=== PATIENT | male | born 1935 | race Caucasian/White ===

== ENCOUNTER 2023-04-06 05:47 | Inpatient (IN) | payer MEDICARE, OTHER, SELFPAY ==
[2023-04-06] VITALS (15 sets, daily range): BP systolic 112–140; BP diastolic 45–81; PULSE 64–77; RESP 16–23; TEMP 35.8–36.9; O2SAT 89–99; BMI 35.2
[2023-04-06 06:17] LABS: Absolute Lymphocyte Count 0.97 X10^3/uL (0.83-4.51); Absolute Neutrophil Count 1.4 X10^3/uL (2.0-7.7); Basophil# 0.01 X10^3/uL; Basophil% 0.4 % (0-1); Eosinophil# 0.06 X10^3/uL; Eosinophils% 2.3 % (0-5); Hematocrit 23.5 % (40-54); Hemoglobin 7.3 g/dL (13.0-16.5); Lymphocyte # 0.97 X10^3/ul (0.83-4.51); Lymphocyte % 36.9 % (19-41); Mean Corp Hgb Conc 31.1 g/dL (32-36); Mean Corpuscular Hgb 35.4 pg (27.0-32.0); Mean Corpuscular Volume 114.1 fL (80-94); Mean Platelet Vol. 11.5 fl (6.2-12.0); Monocyte# 0.15 X10^3/uL; Monocyte% 5.7 % (0-10); NRBC Flagged by Analyzer 0 % (0-5); Neutrophil # 1.41 X10^3/uL (2.7-7.7); Neutrophil % 53.6 % (47-70); POSITIVE MORPHOLOGY YES; Platelet Count 102 K/mm3 (150-450); RBC Distribution Width CV 21.4 % (11.6-14.6); RBC Distribution Width SD 87.9 fl (35.1-43.9); Red Blood Count 2.06 M/mm3 (4.6-6.2); White Blood Count 2.6 K/mm3 (4.4-11.0)
--- NOTE | 2023-04-06 06:18 | EDS_ITS ---
HPI HPI - GI History of Present Illness Chief Complaint: GI Bleed Detail of Chief Complaint: Black stool Informant: patient and spouse/S.O. Abdominal Pain/Flank Pain Onset: Today and Yesterday Context: Sudden Onset Timing: Intermittent Quality: Aching Location: Epigastric Current Severity: Gone Maximum Severity: Mild Worsened by: Nothing Relieved by: Nothing Nausea/Vomiting/Emesis GI Symptom: Positive for Nausea; Negative for Vomiting Diarrhea/Melena/Hematochezia GI Symptom: Positive for Melena; Negative for Diarrhea or Hematochezia Onset: Today and Yesterday Stool Quality: Positive for Loose and Black; Negative for Maroon or BRB per rectum Associated Symptoms Associated Symptoms: Negative for Dysuria, Frequency, Hematuria or Urgency LMP: Not applicable Narrative Narrative: Patient is an 80 old male on Dariana went for coronary disease. He had several stents placed 12 years ago. He also has history of gout, hypertension, peptic ulcer disease. He is on Pepcid. He had an EGD performed by GI specialist at [facility] proximal weeks ago and was told he has lesions. He is also on sucralfate. He presents because of black stool. He denies orthostatic symptoms today. He was lightheaded when he did his bowel prep. He denies chest pain, dyspnea, dyspnea on exertion. He denies orthopnea. He denies intolerance to food. He denies bruising easily. Recently he was told to decrease his Eliquis dose. He has not noted blood in his urine. He does not bruise easily. He denies bleeding from his gums. Prior similar symptoms: No Recent Illness/Hospitalization: Yes [facility] Medical History Diabetes Hypertension Home Medications allopurinol 100 mg tablet 100 mg PO DAILY 04/06/23 [History Last Taken Unknown] amlodipine 10 mg tablet 10 mg PO DAILY 04/06/23 [History Last Taken Unknown] apixaban 2.5 mg tablet (Eliquis) 2.5 mg PO BID 04/06/23 [History Last Taken Unknown] aspirin 81 mg tablet 81 mg PO DAILY 04/06/23 [History Last Taken Unknown] atorvastatin 20 mg tablet 20 mg PO DAILY 04/06/23 [History Last Taken Unknown] famotidine 20 mg tablet 20 mg PO BID 04/06/23 [History Last Taken Unknown] ferrous sulfate 325 mg (65 mg iron) tablet 325 mg PO DAILY 04/06/23 [History Last Taken Unknown] furosemide 20 mg tablet 20 mg PO BID 04/06/23 [History Last Taken Unknown] gabapentin 300 mg capsule 300 mg PO BID 04/06/23 [History Last Taken Unknown] glimepiride 2 mg tablet 2 mg PO DAILY 04/06/23 [History Last Taken Unknown] metoprolol succinate 100 mg tablet,extended release 24 hr 100 mg PO DAILY 04/06/23 [History Last Taken Unknown] multivitamin 1 tab PO DAILY 04/06/23 [History Last Taken Unknown] sucralfate 1 gram tablet (Carafate) 1 g PO BID 04/06/23 [History Last Taken Unknown] Allergy/AdvReac Type Severity Reaction Status Date / Time metformin AdvReac Diarrhea Verified 04/06/23 05:49 Surgical History History of cholecystectomy History of hernia surgery Social History (Updated 04/06/23 @ 06:[address] Wilfrido Rodriguez MD) household members: spouse Smoking Status: Never smoker substance use type: does not use ROS ROS ED Constitutional Constitutional ED: Denies chills, fever(s), subjective or sweats ENT ENT ED: Denies ear pain, rhinorrhea or sore throat Cardiovascular Cardiovascular: Denies chest pain, orthopnea, palpitations or paroxysmal nocturnal dyspnea Respiratory/Chest Respiratory/Chest: Denies cough, dyspnea, dyspnea on exertion, orthopnea or paroxysmal nocturnal dyspnea Gastrointestinal Gastrointestinal: Reports abdominal pain and melena; Denies constipation, diarrhea, nausea or vomiting Genitourinary Genitourinary ED: Denies dysuria, hematuria or urinary frequency Musculoskeletal Musculoskeletal: Denies arthralgias, back pain or myalgias Integumentary Denies rash Neurologic Neurologic: Denies paresthesias or weakness Endocrine Endocrinology: Denies polydipsia or polyuria Hematologic/Lymphatic Hematologic/Lymphatic: Denies easy bleeding or easy bruising EXAM Physical Exam Const Vital Signs: 04/06/23 05:49 04/06/23 06:42 Temperature 96.4 F L Temperature Source Temporal Pulse Rate 73 Pulse Rate [Lying] 74 Pulse Rate [Sitting (for 1 minute prior to obtaining)] 75 Pulse Rate [Standing (for 1 minute prior to obtaining)] 74 Respiratory Rate 20 H Blood Pressure 132/57 H Blood Pressure [Lying] 134/59 H Blood Pressure [Sitting (for 1 minute prior to obtaining)] 130/56 H Blood Pressure [Standing (for 1 minute prior to obtaining)] 131/81 H Blood Pressure Mean 82 Blood Pressure Mean [Lying] 84 Blood Pressure Mean [Sitting (for 1 minute prior to obtaining)] 80 Blood Pressure Mean [Standing (for 1 minute prior to obtaining)] 97 Pulse Ox 98 Oxygen Delivery Method Room Air Positive well nourished, well developed and obese General Appearance ED: well developed, NAD and pallor Nutritional Appearance: obese HEENT Reports TM's clear and moist mucous membranes normocephalic and atraumatic Tympanic Membrane ED: Yes TM's clear Eyes PERRL and EOMs intact bilaterally General Eye ED: Yes pale conjunctiva; Negative for scleral icterus Neck no lymphadenopathy, supple and no JVD Resp normal respiratory effort Effort and Inspection: respiratory distress Cardio regular rate, regular rhythm, S1 normal heart sound, S2 normal heart sound and no murmurs GI non-tender and no masses; Negative for non-distended GI Narrative: There is no fissures, fistulas hemorrhoid noted on rectal exam. Stool is blackish green and does have an odor to it. Inspection: abdominal distention Auscultation: hypoactive bowel sounds Palpation: soft; Negative for tender, guarding, rigid, hepatomegaly or splenomegaly Back/Spine no CVA tenderness Extremity full ROM General Extremety ED: Yes edema; Negative for tenderness General Extremity: edema Neuro CN's II-XII intact bilaterally and moves all extremities Sensorium / Orientation: alert Psych mental status grossly normal Skin no wounds General Skin Exam: pallor; Negative for jaundice Lesions: no lesions Rashes: no rashes MDM MDM MDM Narrative Medical decision making narrative: With history of recent EGD with lesions blackish green stool this may represent GI bleed. The black his grandson may have been due to the fact that he is on iron. Will obtain CBC to assess H&H compared to prior. BMP to assess BUN to creatinine ratio which would be elevated, greater than 20-1 if due to GI bleed or dehydration. Since he is on Eliquis coags were not obtained. Stool was sent for occult blood. She was recently admitted to [facility] for acute on chronic anemia. There was concern this was due to GI bleed. Upper endoscopy revealed several punctate ulcers throughout the antrum. H. pylori biopsies were negative. 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 His most recent hemoglobin was 7.7. He denied at the time of this author report black stool or blood in his stool. He has multiple other medical problems which she did not list initially either. Patient did require transfusion of 2 units of blood. Since his hemoglobin is low for than his hemoglobin prior to transfusion Dr. Kirby was made aware of the patient. He will need hospitalization. Suspect observation status with serial H&H to determine if he is blood count is falling. He is presently coagulant. This may need to be discontinued temporarily. History & Record Review Additional record(s) reviewed:: Prior inpatient record and Prior outpatient record Lab Data Attestation: I reviewed the patient's lab results. 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 Hemoglobin today is 7.3 with Alaniz crit of 23.5. MCV is 110. White count is 2.6 thousand with a frontal. BUN and anion elevated for 3 and 2.25 with a BUN to creatinine ratio of 19:1. Coags were not obtained since he is on Eliquis and results are meaningless. Based on records from outside facility patient does have stage III chronic kidney disease. Will type and screen patient at this point. Labs: Laboratory Results - last 24 hr 04/06/23 04/06/23 05:53 05:53 WBC 2.6 L RBC 2.06 L Hgb 7.3 L Hct 23.5 L MCV 114.1 H MCH 35.4 H MCHC 31.1 L RDW Std Deviation 87.9 H RDW Coeff of Beto 21.4 H Plt Count 102 L MPV 11.5 Immature Gran % (Auto) 1.100 H Neut % (Auto) 53.6 Lymph % (Auto) 36.9 [place] % (Auto) 5.7 Eos % (Auto) 2.3 Baso % (Auto) 0.4 Absolute Neuts (auto) 1.4 L Absolute Lymphs (auto) 0.97 Nucleated RBC % 0 Anisocytosis 2+ Sodium 143 Potassium 4.2 Chloride 112 H Carbon Dioxide 25.0 Anion Gap 6 BUN 43 H Creatinine 2.25 H Estim Creat Clear Calc 22.38 Est GFR (MDRD) Af Amer 36 L Est GFR (MDRD) Non-Af 29 L BUN/Creatinine Ratio 19.1 Glucose 163 H Calcium 8.9 Management Discussion w/another healthcare provider: Hospitalist and Addictions Therapist (Dr. Kirby requested Protonix IV push, drip and octreotide drip. Patient be admitted to the hospitalist service with consult to him.) Discharge Plan Dx/Rx/DC Orders Clinical Impression: Acute GI bleeding, Hypercholesterolemia, Presence of stent in coronary artery in patient with coronary artery disease, Anemia due to acute blood loss, Chronic lymphocytic leukemia of B-cell type, Stage 3 chronic kidney disease, Anticoagulant long-term use Disposition Disposition: Acute Care [facility]
[2023-04-06 06:31] LABS: Anion Gap 6 (5-15); BUN 43 mg/dL (7-18); BUN/Creat Ratio 19.1 RATIO (10-20); Calcium,Total 8.9 mg/dL (8.5-10.1); Chloride 112 mmol/L (98-107); Creatinine, Serum 2.25 mg/dL (0.70-1.30); EST Glomerular Filtration Rate 29 mL/min (>60); Est Glom Filt Rate - Afr Amer 36 mL/min (>60); Estimated Creatinine Clearance 22.38 ml/min; Glucose 163 mg/dL (74-106); Potassium 4.2 mmol/L (3.5-5.1); Sodium Level 143 mmol/L (136-145)
[2023-04-06 06:41] LABS: Differential Indicated SCAN CRITERIA MET
[2023-04-06 06:54] LABS: Anisocytosis 2+
--- NOTE | 2023-04-06 07:30 | EKG12_ITS ---
Test Reason : GI BLEED Blood Pressure : / mmHG Vent. Rate : 071 BPM Atrial Rate : 071 BPM P-R Int : 164 ms QRS Dur : 090 ms QT Int : 414 ms P-R-T Axes : 040 -30 -13 degrees QTc Int : 449 ms Sinus rhythm with occasional Premature ventricular complexes Left axis deviation Cannot rule out Anterior infarct , age undetermined Abnormal ECG No previous ECGs available Confirmed by ELISABETH RUANO, ISSA ([id number]), international editorial producer URI PAGAN ([id number]) on 04/07/2023 8:58:25 AM Referred By: Confirmed By:ISSA BARBER MD
--- NOTE | 2023-04-06 07:32 | NURSING ---
NO OLD EKGS
--- NOTE | 2023-04-06 07:40 | NURSING ---
PCU CARPENTER GI BLEED, ANEMIA DUE TO GI BLEED
--- NOTE | 2023-04-06 08:01 | PCM.HP.STD ---
HPI - General General Date of Admission: 04/06/23 Date of Service: 04/06/23 Chief Complaint: Black stools, dizzy HPI Narrative Jason Chaves 87-year-old male history of coronary artery disease with stent placement 12 years ago, chronic bcell CLL, DMII, gout, hypertension, peptic ulcer disease on Pepcid and sucralfate. Had EGD performed several weeks ago and was told he had lesions and presented to [facility] 04/06/2023 with black tarry stools. Is on Eliquis and was recently told to decrease his Eliquis dose. About a week and a half ago he was admitted to affiliated institution and had upper endoscopy which demonstrated several punctate ulcers in the antrum. He was discharged home and appears he is taking sucralfate twice daily and famotidine twice daily. He says since that time he has had black stools though was on iron supplementation however 2 days ago he had 4 black bowel movements in a row and had 1 last night and has been intermittently dizzy when standing. Does have little bit of left lower abdominal discomfort that he reports is intermittent and present over the past month. Also has been sneezing but denies any other complaints. [facility] Medical History (Updated 04/06/23 @ 08:[address] Mary Ellen Velez MD) Diabetes Hypertension Home Medications allopurinol 100 mg tablet 100 mg PO DAILY 04/06/23 [History Last Taken Unknown] amlodipine 10 mg tablet 10 mg PO DAILY 04/06/23 [History Last Taken Unknown] apixaban 2.5 mg tablet (Eliquis) 2.5 mg PO BID 04/06/23 [History Last Taken Unknown] aspirin 81 mg tablet 81 mg PO DAILY 04/06/23 [History Last Taken Unknown] atorvastatin 20 mg tablet 20 mg PO DAILY 04/06/23 [History Last Taken Unknown] famotidine 20 mg tablet 20 mg PO BID 04/06/23 [History Last Taken Unknown] ferrous sulfate 325 mg (65 mg iron) tablet 325 mg PO DAILY 04/06/23 [History Last Taken Unknown] furosemide 20 mg tablet 20 mg PO BID 04/06/23 [History Last Taken Unknown] gabapentin 300 mg capsule 300 mg PO BID 04/06/23 [History Last Taken Unknown] glimepiride 2 mg tablet 2 mg PO DAILY 04/06/23 [History Last Taken Unknown] metoprolol succinate 100 mg tablet,extended release 24 hr 100 mg PO DAILY 04/06/23 [History Last Taken Unknown] multivitamin 1 tab PO DAILY 04/06/23 [History Last Taken Unknown] sucralfate 1 gram tablet (Carafate) 1 g PO BID 04/06/23 [History Last Taken Unknown] Allergy/AdvReac Type Severity Reaction Status Date / Time metformin AdvReac Diarrhea Verified 04/06/23 05:49 Surgical History History of cholecystectomy History of hernia surgery Social History (Updated 04/06/23 @ 06:[address] Wilfrido Rodriguez MD) household members: spouse Smoking Status: Never smoker substance use type: does not use ROS ROS Narrative General: Denies fever/chills HENT: Denies headache, denies stuffy nose, denies sore throat, has been sneezing EYES: Denies changes in vision Resp: Denies cough, denies shortness of breath Cardiac: Denies chest pain GI: Some intermittent left lower quadrant discomfort, denies changes in bowel, denies nausea/vomiting : Denies changes in urination Extremity: Denies swelling MSK: Has some mild swelling bilateral lower extremities left greater than right which is chronic Neuro: Denies any numbness/tingling Heme: Denies any bleeding or bruising Skin: Denies rashes Psychiatric: No complaints voiced Vital Signs Vital Signs Vital Signs: 04/06/23 05:49 04/06/23 06:42 04/06/23 07:40 Temperature 96.4 F L 98 F Temperature Source Temporal Temporal Pulse Rate 73 70 Pulse Rate [Lying] 74 Pulse Rate [Sitting (for 1 minute prior to obtaining)] 75 Pulse Rate [Standing (for 1 minute prior to obtaining)] 74 Respiratory Rate 20 H 23 H Blood Pressure 132/57 H 122/61 H Blood Pressure [Lying] 134/59 H Blood Pressure [Sitting (for 1 minute prior to obtaining)] 130/56 H Blood Pressure [Standing (for 1 minute prior to obtaining)] 131/81 H Blood Pressure Mean 82 81 Blood Pressure Mean [Lying] 84 Blood Pressure Mean [Sitting (for 1 minute prior to obtaining)] 80 Blood Pressure Mean [Standing (for 1 minute prior to obtaining)] 97 Pulse Ox 98 94 Oxygen Delivery Method Room Air 04/06/23 07:59 Temperature Temperature Source Pulse Rate 71 Pulse Rate [Lying] Pulse Rate [Sitting (for 1 minute prior to obtaining)] Pulse Rate [Standing (for 1 minute prior to obtaining)] Respiratory Rate 22 H Blood Pressure 131/56 H Blood Pressure [Lying] Blood Pressure [Sitting (for 1 minute prior to obtaining)] Blood Pressure [Standing (for 1 minute prior to obtaining)] Blood Pressure Mean 81 Blood Pressure Mean [Lying] Blood Pressure Mean [Sitting (for 1 minute prior to obtaining)] Blood Pressure Mean [Standing (for 1 minute prior to obtaining)] Pulse Ox 96 Oxygen Delivery Method Room Air Weight Weight: 105 kg Body Mass Index (BMI) 35.2 Physical Exam Narrative General: Alert, oriented, no apparent distress HEENT: Atraumatic, normocephalic Eyes: Anicteric, normal conjunctiva, extraocular movements grossly intact Neck: Supple Respiratory: Clear to auscultation bilaterally, normal respiratory effort Cardiovascular: Regular rate and rhythm GI: Soft, minimal left lower quadrant tenderness without rebound, guarding, rigidity, Extremities: Trace to 1+ edema on right lower extremity and 1+ in left lower extremity which she reports is chronic Musculoskeletal: Moving all extremities Neuro: No overt focal neurological deficits Skin: No rashes appreciated Psych: Cooperative Results Lab / Micro Data Result Diagrams: 04/06/23 05:53 04/06/23 05:53 Labs: Laboratory Results - last 24 hr 04/06/23 05:53: WBC 2.6 L, RBC 2.06 L, Hgb 7.3 L, Hct 23.5 L, MCV 114.1 H, MCH 35.4 H, MCHC 31.1 L, RDW Std Deviation 87.9 H, RDW Coeff of Beto 21.4 H, Plt Count 102 L, MPV 11.5, Immature Gran % (Auto) 1.100 H, Neut % (Auto) 53.6, Lymph % (Auto) 36.9, [place] % (Auto) 5.7, Eos % (Auto) 2.3, Baso % (Auto) 0.4, Absolute Neuts (auto) 1.4 L, Absolute Lymphs (auto) 0.97, Nucleated RBC % 0, Anisocytosis 2+ 04/06/23 05:53: Sodium 143, Potassium 4.2, Chloride 112 H, Carbon Dioxide 25.0, Anion Gap 6, BUN 43 H, Creatinine 2.25 H, Estim Creat Clear Calc 22.38, Est GFR (MDRD) Af Amer 36 L, Est GFR (MDRD) Non-Af 29 L, BUN/Creatinine Ratio 19.1, Glucose 163 H, Calcium 8.9 Micro: Microbiology 04/06/23 06:00 Stool Stool Occult Blood (SAMMY) - Final Occult Blood Positive Assessment & Plan Assessment/Plan (1) Acute GI bleeding: (2) Chronic lymphocytic leukemia of B-cell type: (3) Stage 3 chronic kidney disease: (4) Presence of stent in coronary artery in patient with coronary artery disease: PLAN: Plan #GIB, concern for upper etiology -Recent admit to [facility] for acute on chronic anemia 2/2 upper GIB with endoscopy revealing several punctate ulcers in the antrum with H. pylori negative -Black tarry stools and dizzy upon standing -Hold Eliquis and aspirin -GI consulted -PPI and octreotide drips -Sucralfate -Type and cross -Hemoglobin 7.2, we will transfuse 1 unit of packed red blood cells as his threshold should be 8 given his history of coronary artery disease -Monitor H&H #Hx CAD w/ stents 12 years ago -Hold aspirin -Continue statin -Continue beta-tricia at half dose and can increase as tolerated -Patient reports being on Eliquis for his coronary artery disease and denies any clots or history of A-fib, will attempt to review external records if available #Type 2 diabetes mellitus -Glucose checks and sliding scale insulin -Patient reports taking 22 units long-acting at bedtime, will start on slightly lower dose and titrate -Hold glimepiride #YU versus CKD unclear subtype -Creatinine 2.25 but no baseline in our system -Trend BMP -Avoid nephrotoxic agents #chronic b cell CLL -By history #Pancytopenia -No baseline available in our system, will attempt to search external records for further information #DVT ppx: SCDs Mary Ellen Velez MD Time spent in the patient's overall evaluation,decision-making process, review of diagnostic data, adjustment of management, discussion with other providers, nursing nursing and ancillary staff involved in patient's care documentation, 60 minutes Charges/Coding Visit Charges Inpatient E&M: 45703 Init Hosp L2
--- NOTE | 2023-04-06 10:37 | NURSING ---
Patient taken to Endo at this time.
[2023-04-06] MEDS: Lactated Ringers 1,000 ML 15 ML IV (10:49)
--- NOTE | 2023-04-06 12:00 | EX.PCM.CON.G ---
HPI Consult Data Date of Consult: 04/05/23 HPI Narrative Reason for Consultation: GI bleed HPI Narrative: JEWEL ELKINS, is a 87 M who presents for the evaluation of melanotic stools. He has a history of anemia chronic disease, gout, CLL, CKD stage III, atrial fibrillation on anticoag elation and, CAD on aspirin and a statin. He recently underwent an upper endoscopy for pancytopenia..? He had several stents placed 12 years ago.? He also has history of ? He is on Pepcid.? He had an EGD performed by GI specialist at [facility] 2 weeks ago and was told he has lesions. ? He is also on sucralfate.? He presents because of black stool.? He denies orthostatic symptoms today.? He was lightheaded when he did his bowel prep.? He denies chest pain, dyspnea, dyspnea on exertion.? He denies orthopnea.? He denies intolerance to food.? He denies bruising easily.? Recently he was told to decrease his Eliquis dose. 1 11/03 he was admitted to affiliated institution and had upper endoscopy which demonstrated several punctate ulcers in the antrum.? He was discharged home and appears he is taking sucralfate twice daily and famotidine twice daily.? He says since that time he has had black stools though was on iron supplementation however 2 days ago he had 4 black bowel movements in a row and had 1 last night and has been intermittently dizzy when standing.? He does have little bit of left lower abdominal discomfort that he reports is intermittent and present over the past month.? Also has been sneezing but denies any other complaints. [facility] Medical History Diabetes Hypertension Home Medications allopurinol 100 mg tablet 100 mg PO DAILY 04/06/23 [History Last Taken Unknown] amlodipine 10 mg tablet 10 mg PO DAILY 04/06/23 [History Last Taken Unknown] apixaban 2.5 mg tablet (Eliquis) 2.5 mg PO BID 04/06/23 [History Last Taken Unknown] aspirin 81 mg tablet 81 mg PO DAILY 04/06/23 [History Last Taken Unknown] atorvastatin 20 mg tablet 20 mg PO DAILY 04/06/23 [History Last Taken Unknown] famotidine 20 mg tablet 20 mg PO BID 04/06/23 [History Last Taken Unknown] ferrous sulfate 325 mg (65 mg iron) tablet 325 mg PO DAILY 04/06/23 [History Last Taken Unknown] furosemide 20 mg tablet 20 mg PO BID 04/06/23 [History Last Taken Unknown] gabapentin 300 mg capsule 300 mg PO BID 04/06/23 [History Last Taken Unknown] glimepiride 2 mg tablet 2 mg PO DAILY 04/06/23 [History Last Taken Unknown] metoprolol succinate 100 mg tablet,extended release 24 hr 100 mg PO DAILY 04/06/23 [History Last Taken Unknown] multivitamin 1 tab PO DAILY 04/06/23 [History Last Taken Unknown] sucralfate 1 gram tablet (Carafate) 1 g PO BID 04/06/23 [History Last Taken Unknown] Allergy/AdvReac Type Severity Reaction Status Date / Time metformin AdvReac Diarrhea Verified 04/06/23 05:49 Surgical History History of cholecystectomy History of hernia surgery Social History household members: spouse Smoking Status: Never smoker substance use type: does not use ROS ROS Narrative General: Denies fever/chills HENT: Denies headache, denies stuffy nose, denies sore throat, has been sneezing EYES: Denies changes in vision Resp: Denies cough, denies shortness of breath Cardiac: Denies chest pain GI: Some intermittent left lower quadrant discomfort, denies changes in bowel, denies nausea/vomiting : Denies changes in urination Extremity: Denies swelling MSK: Has some mild swelling bilateral lower extremities left greater than right which is chronic Neuro: Denies any numbness/tingling Heme: Denies any bleeding or bruising Skin: Denies rashes Psychiatric: No complaints voiced Physical Exam Narrative General: Alert, oriented, no apparent distress HEENT: Atraumatic, normocephalic Eyes: Anicteric, normal conjunctiva, extraocular movements grossly intact Neck: Supple Respiratory: Clear to auscultation bilaterally, normal respiratory effort Cardiovascular: Regular rate and rhythm GI: Soft, minimal left lower quadrant tenderness without rebound, guarding, rigidity, Extremities: Trace to 1+ edema on right lower extremity and 1+ in left lower extremity which she reports is chronic Musculoskeletal: Moving all extremities Neuro: No overt focal neurological deficits Skin: No rashes appreciated Psych: Cooperative Lab / Micro Data Result Diagrams: 04/06/23 16:52 04/06/23 05:53 Labs: Laboratory Results - last 24 hr 04/06/23 05:53: WBC 2.6 L, RBC 2.06 L, Hgb 7.3 L, Hct 23.5 L, MCV 114.1 H, MCH 35.4 H, MCHC 31.1 L, RDW Std Deviation 87.9 H, RDW Coeff of Beto 21.4 H, Plt Count 102 L, MPV 11.5, Immature Gran % (Auto) 1.100 H, Neut % (Auto) 53.6, Lymph % (Auto) 36.9, [place] % (Auto) 5.7, Eos % (Auto) 2.3, Baso % (Auto) 0.4, Absolute Neuts (auto) 1.4 L, Absolute Lymphs (auto) 0.97, Nucleated RBC % 0, Anisocytosis 2+ 04/06/23 05:53: Sodium 143, Potassium 4.2, Chloride 112 H, Carbon Dioxide 25.0, Anion Gap 6, BUN 43 H, Creatinine 2.25 H, Estim Creat Clear Calc 22.38, Est GFR (MDRD) Af Amer 36 L, Est GFR (MDRD) Non-Af 29 L, BUN/Creatinine Ratio 19.1, Glucose 163 H, Calcium 8.9 04/06/23 05:53: Blood Type O NEGATIVE, Antibody Screen NEGATIVE 04/06/23 06:53: Crossmatch See Detail 04/06/23 13:15: Hgb 7.3 L 04/06/23 16:52: Hgb 7.5 L Micro: Microbiology 04/06/23 06:00 Stool Stool Occult Blood (SAMMY) - Final Occult Blood Positive Assessment & Plan Assessment/Plan (1) Acute GI bleeding: (2) Chronic lymphocytic leukemia of B-cell type: (3) Stage 3 chronic kidney disease: (4) Presence of stent in coronary artery in patient with coronary artery disease: PLAN: Plan 87-year-old gentleman with history of hypertension, COPD, CAD status post stents, atrial fibrillation, gout with a recent upper GI bleed thought to be secondary to ulcerations in the gastric antrum. I recommended that he get started on PPI and octreotide. His aspirin and Eliquis are on hold. He was symptomatic with hypotension on standing. Recommend transfuse 2 units of packed white blood cells. He will undergo an emergent upper endoscopy. He was explained alternatives, risk, benefits including outstanding bleeding, infection, sepsis, perforation, need for urgent . He will have an ASA of 3. Charges/Coding Visit Charges Inpatient E&M: 34723 Init Hosp L3
[2023-04-06 13:35] LABS: Hemoglobin 7.3 g/dL (13.0-16.5)
[2023-04-06 17:01] LABS: Hemoglobin 7.5 g/dL (13.0-16.5)
[2023-04-06 18:17] LABS: Bedside Glucose 141 mg/dL (74-106)
[2023-04-06] MEDS: 0.9% Normal Saline (Pres. free 10 ML Vial (18:42)
[2023-04-06] MEDS: 0.9% Saline Lock 10 ML Syringe IV (18:42)
[2023-04-06] MEDS: Epinephrine (1 mg/ml) 1 MG/ML VIAL (18:43)
--- NOTE | 2023-04-06 18:53 | OP.EGD_ITS ---
Patient Name: Jason Chaves Procedure Date: 04/06/2023 5:49 PM Date of : 1935 Age: 87 Procedure: Upper GI endoscopy Indications: Iron deficiency anemia, Melena Providers: Bert Kirby DO Medicines: Monitored Anesthesia Care Patient Profile: This is an 87 year old male. Refer to note in patient chart for documentation of history and physical. Patient has symptoms. The symptoms first began within the past few weeks. He is status post EGD for biopsy. Complications: No immediate complications. Procedure: Pre-Anesthesia Assessment: - Prior to the procedure, a History and Physical was performed, and patient medications and allergies were reviewed. The risks and benefits of the procedure and the sedation options and risks were discussed with the patient. All questions were answered and informed consent was obtained. Patient identification and proposed procedure were verified by the physician. Mental Status Examination: normal. Prophylactic Antibiotics: The patient does not require prophylactic antibiotics. Prior Anticoagulants: The patient has taken no previous anticoagulant or antiplatelet agents. ASA Grade Assessment: III - A patient with severe systemic disease. After reviewing the risks and benefits, the patient was deemed in satisfactory condition to undergo the procedure. The anesthesia plan was to use monitored anesthesia care (MAC). Immediately prior to administration of medications, the patient was re-assessed for adequacy to receive sedatives. The heart rate, respiratory rate, oxygen saturations, blood pressure, adequacy of pulmonary ventilation, and response to care were monitored throughout the procedure. The physical status of the patient was re-assessed after the procedure. After obtaining informed consent, the endoscope was passed under direct vision. Throughout the procedure, the patient's blood pressure, pulse, and oxygen saturations were monitored continuously. The gastroscope was introduced through the mouth, and advanced to the second part of duodenum. The upper GI endoscopy was accomplished without difficulty. The patient tolerated the procedure well. Scope In: 6:11:31 PM Scope Out: 6:45:08 PM Total Procedure Duration Time 0 hours 33 minutes 37 seconds Findings: No gross lesions were noted in the entire esophagus. Red blood was found in the gastric body. Fluid aspiration was performed through the scope suction channel. The amount of fluid collected was 500 mL. The fluid was opaque. Verification of patient identification for the specimen was done. Estimated blood loss was minimal. 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 Coagulation for hemostasis using hot biopsy forceps was successful. Estimated blood loss was minimal. One oozing cratered gastric ulcer with pigmented material was found in the gastric body. The lesion was 6 mm in largest dimension. Area was successfully injected with 10 mL of a 1:20,000 solution of epinephrine for drug delivery. Estimated blood loss was minimal. No gross lesions were noted in the duodenal bulb. Impression: - No gross lesions in esophagus. - Red blood in the gastric body. Fluid aspiration performed. - Three bleeding angiodysplastic lesions in the stomach. Treated with hot biopsy forceps. - Oozing gastric ulcer with pigmented material. Injected. - No gross lesions in the duodenal bulb. Recommendation: - [facility]. - Clear liquid diet today. - Continue present medications. - No aspirin, ibuprofen, naproxen, or other non-steroidal anti-inflammatory drugs for 2 weeks. Procedure Code(s): --- Professional --- 83338, Esophagogastroduodenoscopy, flexible, transoral; with control of bleeding, any method 50852, 59, Esophagogastroduodenoscopy, flexible, transoral; with directed submucosal injection(s), any substance CPT copyright 2017 [employer]. All rights reserved. The codes documented in this report are preliminary and upon blueprint clerk review may be revised to meet current compliance requirements. Bert Kirby DO 04/06/2023 6:53:16 PM This report has been signed electronically. Number of Addenda: 0 Note Initiated On: 04/06/2023 5:49 PM
--- NOTE | 2023-04-06 18:54 | OP.CCLET_ITS ---
04/06/2023 Palmira Cazares Re : Upper GI endoscopy procedure for Jason العليr Sage This procedure was performed on Thursday, April 06, 2023. My impressions and recommendations are as follows: Impressions : - No gross lesions in esophagus. - Red blood in the gastric body. Fluid aspiration performed. - Three bleeding angiodysplastic lesions in the stomach. Treated with hot biopsy forceps. - Oozing gastric ulcer with pigmented material. Injected. - No gross lesions in the duodenal bulb. Recommendations : - [facility]. - Clear liquid diet today. - Continue present medications. - No aspirin, ibuprofen, naproxen, or other non-steroidal anti-inflammatory drugs for 2 weeks. My findings are described in the full procedure note, which is enclosed. If I can be of further assistance, please feel free to contact me at . Sincerely, Bert Kirby, 04/06/2023 6:53:16 PM This report has been signed electronically.
--- NOTE | 2023-04-06 20:00 | NURSING ---
Pt returned to floor at this time, on 3L O2. No c/o pain or discomfort vitals obtained.
[2023-04-06] MEDS: Sucralfate 1 GM Tablet PO (21:47)
[2023-04-06] MEDS: Atorvastatin Calcium 20 MG Tablet PO (21:47)
[2023-04-06 22:16] LABS: Bedside Glucose 182 mg/dL (74-106)
[2023-04-07] VITALS (17 sets, daily range): BP systolic 105–156; BP diastolic 54–84; PULSE 72–89; RESP 15–22; TEMP 36.5–37.1; O2SAT 87–98; BMI 35.4
[2023-04-07] MEDS: Sucralfate 1 GM Tablet PO ×4 (06:34→22:21)
[2023-04-07 07:00] LABS: Bedside Glucose 157 mg/dL (74-106)
[2023-04-07 07:01] LABS: Absolute Lymphocyte Count 0.59 X10^3/uL (0.83-4.51); Absolute Neutrophil Count 1.1 X10^3/uL (2.0-7.7); Basophil# 0.01 X10^3/uL; Basophil% 0.5 % (0-1); Eosinophil# 0.04 X10^3/uL; Eosinophils% 2.1 % (0-5); Hematocrit 21.6 % (40-54); Hemoglobin 6.8 g/dL (13.0-16.5); International Normalized Ratio 1.2; Lymphocyte # 0.59 X10^3/ul (0.83-4.51); Lymphocyte % 30.9 % (19-41); Mean Corp Hgb Conc 31.5 g/dL (32-36); Mean Corpuscular Hgb 34.5 pg (27.0-32.0); Mean Corpuscular Volume 109.6 fL (80-94); Mean Platelet Vol. 11.4 fl (6.2-12.0); Monocyte# 0.12 X10^3/uL; Monocyte% 6.3 % (0-10); NRBC Flagged by Analyzer 0 % (0-5); Neutrophil # 1.14 X10^3/uL (2.7-7.7); Neutrophil % 59.7 % (47-70); POSITIVE COUNT YES; POSITIVE DIFFERENTIAL YES; POSITIVE MORPHOLOGY YES; Platelet Count 82 K/mm3 (150-450); RBC Distribution Width CV 24.5 % (11.6-14.6); RBC Distribution Width SD 95.8 fl (35.1-43.9); Red Blood Count 1.97 M/mm3 (4.6-6.2); White Blood Count 1.9 K/mm3 (4.4-11.0)
[2023-04-07 07:09] LABS: Differential Indicated SCAN CRITERIA MET
[2023-04-07 07:26] LABS: AST(SGOT) 56 U/L (15-37); Alanine Aminotransfer ALT/SGPT 44 U/L (16-61); Alkaline Phosphatase 91 U/L (45-117); Anion Gap 5 (5-15); BUN 38 mg/dL (7-18); BUN/Creat Ratio 19.7 RATIO (10-20); Calcium,Total 8.6 mg/dL (8.5-10.1); Chloride 111 mmol/L (98-107); Creatinine, Serum 1.93 mg/dL (0.70-1.30); EST Glomerular Filtration Rate 35 mL/min (>60); Est Glom Filt Rate - Afr Amer 43 mL/min (>60); Estimated Creatinine Clearance 26.09 ml/min; Globulin 2.9 g/dL (2.2-4.2); Glucose 160 mg/dL (74-106); Potassium 4.3 mmol/L (3.5-5.1); Protein, Total 5.9 g/dL (6.4-8.2); Sodium Level 141 mmol/L (136-145)
[2023-04-07 07:49] LABS: Anisocytosis 2+; Basophilic Stippling 1+; Platelet Estimate MOD DEC (ADEQ)
--- NOTE | 2023-04-07 08:52 | PCM.PN.HOSP ---
Reason for Visit Reason for Visit: Diagnoses Chronic lymphocytic leukemia of B-cell type not having achieved remission (04/06/23) Atherosclerotic heart disease of [place] coronary artery without angina pectoris (04/06/23) Gastrointestinal hemorrhage, 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04/06/23) Chronic kidney disease, stage 3 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04/06/23) Presence of coronary angioplasty implant and graft (04/06/23) Subjective Subjective Feeling better today, no abdominal pain, no blood or dark tarry stools noted, tolerating clear liquids Objective Data Objective Data Vital Signs: Vital Signs Temp Pulse Resp BP Pulse Ox O2 Del Method O2 Flow Rate 98.0 F 79 16 105/59 L 98 Nasal Cannula 3 04/07/23 03:16 04/07/23 03:16 04/07/23 03:16 04/07/23 03:16 04/07/23 03:18 04/07/23 03:18 04/07/23 03:18 Oxygen Flow Rate (L/min) 3 Oxygen Delivery Method Nasal Cannula Weight: 105.9 kg Body Mass Index (BMI) 35.4 Intake & Output: Intake and Output for Last 24 Hours 04/05/23 04/06/23 04/07/23 23:59 23:59 23:59 Intake Total 535 / 535 344.34 / 344.34 Output Total 600 / 600 500 / 500 Balance -65 / -65 -155.66 / -155.66 Lab / Micro Data Result Diagrams: 04/07/23 17:05 04/07/23 05:43 Labs: Laboratory Results - last 24 hr 04/06/23 05:53: Blood Type O NEGATIVE, Antibody Screen NEGATIVE 04/06/23 06:53: Crossmatch See Detail 04/06/23 13:15: Hgb 7.3 L 04/06/23 16:52: Hgb 7.5 L 04/06/23 17:26: POC Glucose 141 H 04/06/23 21:43: POC Glucose 182 H 04/07/23 05:43: WBC 1.9 L, RBC 1.97 L, Hgb 6.8 L, Hct 21.6 L, MCV 109.6 H, MCH 34.5 H, MCHC 31.5 L, RDW Std Deviation 95.8 H, RDW Coeff of Beto 24.5 H, Plt Count 82 L, MPV 11.4, Immature Gran % (Auto) 0.500, Neut % (Auto) 59.7, Lymph % (Auto) 30.9, [place] % (Auto) 6.3, Eos % (Auto) 2.1, Baso % (Auto) 0.5, Absolute Neuts (auto) 1.1 L, Absolute Lymphs (auto) 0.59 L, Nucleated RBC % 0, Differential Comment COMMENT, Diff Path Review May foll, Platelet Estimate MOD DEC, Basophilic Stippling 1+, Anisocytosis 2+ 04/07/23 05:43: Sodium 141, Potassium 4.3, Chloride 111 H, Carbon Dioxide 25.0, Anion Gap 5, BUN 38 H, Creatinine 1.93 H, Estim Creat Clear Calc 26.09, Est GFR (MDRD) Af Amer 43 L, Est GFR (MDRD) Non-Af 35 L, BUN/Creatinine Ratio 19.7, Glucose 160 H, Calcium 8.6, Total Bilirubin 1.40 H, AST 56 H, ALT 44, Alkaline Phosphatase 91, Total Protein 5.9 L, Albumin 3.0 L, Globulin 2.9, Albumin/Globulin Ratio 1.0 04/07/23 05:43: PT 15.0 H, INR 1.2 04/07/23 06:36: POC Glucose 157 H Micro: Microbiology 04/06/23 06:00 Stool Stool Occult Blood (SAMMY) - Final Occult Blood Positive Physical Exam Narrative General: Alert, oriented, no apparent distress HEENT: Atraumatic, normocephalic Eyes: Anicteric, normal conjunctiva, extraocular movements grossly intact Neck: Supple Respiratory: Clear to auscultation bilaterally, normal respiratory effort Cardiovascular: Regular rate and rhythm GI: Soft, no rebound, guarding, rigidity, Extremities: Trace to 1+ edema in lower extremities Musculoskeletal: Moving all extremities Neuro: No overt focal neurological deficits Skin: No rashes appreciated Psych: Cooperative Assessment & Plan Assessment/Plan (1) Acute GI bleeding: (2) Chronic lymphocytic leukemia of B-cell type: (3) Stage 3 chronic kidney disease: (4) Presence of stent in coronary artery in patient with coronary artery disease: PLAN: Plan #GIB, concern for upper etiology -Recent admit to [facility] for acute on chronic anemia 2/2 upper GIB with endoscopy revealing several punctate ulcers in the antrum with H. 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 This a.m. hemoglobin 6.8, 2 units of packed red blood cells to be transfused. He still on IV PPI and octreotide. Hemoglobin improved to 10.2. Discussed with GI, continue liquid diet at this time and continue current management. Can consider advancing tomorrow if doing well/stable #Hx CAD w/ stents 12 years ago -Hold aspirin -Continue statin -Continue beta-tricia at half dose and can increase as tolerated -Patient reports being on Eliquis for his coronary artery disease and denies any clots or history of A-fib, will attempt to review external records if available -04/07: No aspirin for 14 days #Type 2 diabetes mellitus -Glucose checks and sliding scale insulin -Patient reports taking 22 units long-acting at bedtime, will start on slightly lower dose and titrate -Hold glimepiride #YU versus CKD unclear subtype -Creatinine 2.25 but no baseline in our system -Trend BMP -Avoid nephrotoxic agents -04/07: Slightly better today #chronic b cell CLL -By history #Pancytopenia -No baseline available in our system,, fairly similar to yesterday, will need outpatient 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
[2023-04-07] MEDS: Metoprolol(XL)Succ 50 MG Tablet PO (09:39)
[2023-04-07] MEDS: Gabapentin 300 MG Capsule PO ×2 (09:39→16:33)
[2023-04-07] MEDS: Allopurinol 100 MG Tablet PO (09:40)
--- NOTE | 2023-04-07 11:40 | CASEMGMT ---
RN FABIAN Face to Face with patient for initial transition planning/care coordination assessment. RN CM introduced self and role at [facility]. Patient sitting in chair, alert and oriented, at bedside. Patient willing to participate in assessment and is able to answer all questions appropriately. Care providers, pharmacy, and demographics verified. Patient wishes to discharge home, will monitor progress with therapy for possible HHC. Patient states she has no further needs or concerns at this time. CM to follow for discharge planning needs that may arise. PCP: [facility] Specialists: Calvin, personal banking officer Angela; [facility] Preferred Pharmacy: [facility] Insurance: Shannon LARIOS Prescription Benefit: yes Living Will/HPOA: yes, daughter Pita Medina LNOK: , daughter Living Arrangements: Patient lives with in a 2 story home with bed and bath on first floor. Patient states he is independent at home. Transportation: self, DME/HHC: Patient has shower chair, raised toilet, cane, grab bars, walker, wheelchair, cpap, pulse ox, 4lpm at HS with cpap with portability, glucometer and supplies. Patient has been to [facility] in the past. Patient has had HHC in the past. Disposition Plan: Patient to discharge home with family support and follow-up plans in place. Will monitor for HHC pending with therapy. Natalya MATHUR, RN, CM
[2023-04-07 11:42] LABS: Bedside Glucose 188 mg/dL (74-106)
[2023-04-07] MEDS: Insulin Lispro 100 UNIT/ML INSULN.PEN SC ×3 (12:14→22:23)
[2023-04-07 14:32] LABS: Pathologist Review Reviewed
--- NOTE | 2023-04-07 15:44 | CASEMGMT ---
Sw presented to bedside and introduced self to patient. Sw asked patient if he has Advanced Directives in place. Patient reports that he does have them in place. Sw asked patient to provide a copy if able to do so. Patient expressed understanding. No other sw needs or concerns at this time. Israel Harris, TOOL AND DIE MACHINIST, BOTTOM LINER
[2023-04-07 16:52] LABS: Bedside Glucose 177 mg/dL (74-106)
[2023-04-07 17:25] LABS: Hemoglobin 10.2 g/dL (13.0-16.5)
--- NOTE | 2023-04-07 18:19 | PN.GI_ITS ---
Subjective Subjective Patient underwent emergent endoscopy yesterday and was discovered to have bleeding in his stomach that was controlled and stopped endoscopically. His hemoglobin was 6.8 this morning. He did receive transfusion of 2 units of packed red blood cells. Objective Data Objective Data Vital Signs: Vital Signs Temp Pulse Resp BP Pulse Ox O2 Del Method O2 Flow Rate 97.9 F 81 18 136/61 H 93 Room Air 2 04/07/23 15:43 04/07/23 15:43 04/07/23 15:43 04/07/23 15:43 04/07/23 15:43 04/07/23 15:43 04/07/23 10:17 Oxygen Flow Rate (L/min) 2 Oxygen Delivery Method Room Air Weight: 233 lb 7.512 oz Body Mass Index (BMI) 35.4 Intake & Output: Intake and Output for Last 24 Hours 04/05/23 04/06/23 04/07/23 23:59 23:59 23:59 Intake Total 535 / 535 1722.01 / 1722.01 Output Total 600 / 600 1300 / 1300 Balance -65 / -65 422.01 / 422.01 Lab / Micro Data Result Diagrams: 04/07/23 17:05 04/07/23 05:43 Labs: Laboratory Results - last 24 hr 04/06/23 05:53: Crossmatch See Detail 04/06/23 06:53: Crossmatch See Detail 04/06/23 21:43: POC Glucose 182 H 04/07/23 05:43: WBC 1.9 L, RBC 1.97 L, Hgb 6.8 L, Hct 21.6 L, MCV 109.6 H, MCH 34.5 H, MCHC 31.5 L, RDW Std Deviation 95.8 H, RDW Coeff of Beto 24.5 H, Plt Count 82 L, MPV 11.4, Immature Gran % (Auto) 0.500, Neut % (Auto) 59.7, Lymph % (Auto) 30.9, [place] % (Auto) 6.3, Eos % (Auto) 2.1, Baso % (Auto) 0.5, Absolute Neuts (auto) 1.1 L, Absolute Lymphs (auto) 0.59 L, Nucleated RBC % 0, Differential Comment COMMENT, Diff Path Review Reviewed, Platelet Estimate MOD DEC, Basophilic Stippling 1+, Anisocytosis 2+ 04/07/23 05:43: Sodium 141, Potassium 4.3, Chloride 111 H, Carbon Dioxide 25.0, Anion Gap 5, BUN 38 H, Creatinine 1.93 H, Estim Creat Clear Calc 26.09, Est GFR (MDRD) Af Amer 43 L, Est GFR (MDRD) Non-Af 35 L, BUN/Creatinine Ratio 19.7, Glucose 160 H, Calcium 8.6, Total Bilirubin 1.40 H, AST 56 H, ALT 44, Alkaline Phosphatase 91, Total Protein 5.9 L, Albumin 3.0 L, Globulin 2.9, Albumin/Globulin Ratio 1.0 04/07/23 05:43: PT 15.0 H, INR 1.2 04/07/23 06:36: POC Glucose 157 H 04/07/23 11:24: POC Glucose 188 H 04/07/23 16:26: POC Glucose 177 H 04/07/23 17:05: Hgb 10.2 L Micro: Microbiology 04/06/23 06:00 Stool Stool Occult Blood (SAMMY) - Final Occult Blood Positive Physical Exam Narrative General: Alert, oriented, no apparent distress HEENT: Atraumatic, normocephalic Eyes: Anicteric, normal conjunctiva, extraocular movements grossly intact Neck: Supple Respiratory: Clear to auscultation bilaterally, normal respiratory effort Cardiovascular: Regular rate and rhythm GI: Soft, no rebound, guarding, rigidity, Extremities: Trace to 1+ edema in lower extremities Musculoskeletal: Moving all extremities Neuro: No overt focal neurological deficits Skin: No rashes appreciated Psych: Cooperative Assessment & Plan Assessment/Plan (1) Acute GI bleeding: (2) Chronic lymphocytic leukemia of B-cell type: (3) Stage 3 chronic kidney disease: (4) Presence of stent in coronary artery in patient with coronary artery disease: (5) Cirrhosis: PLAN: Plan 87-year-old gentleman with history of hypertension, COPD, CAD status post stents, atrial fibrillation, gout with a recent upper GI bleed thought to be secondary to ulcerations in the gastric antrum along with angiodysplasia seen in upper GI tract. This was treated endoscopically. He remains off of blood thinners and is on PPI drip and octreotide. He received transfusion 2 units of packed red blood cells. 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 I will check an ammonia level. He should be on lactulose 30 cc twice a day.. His aspirin and Eliquis are on hold. Alpha-fetoprotein to screen for liver cancer. Ffurther recommendations to follow Charges/Coding Visit Charges Inpatient E&M: 68119 Subs Hosp L3
[2023-04-07 21:36] LABS: Hemoglobin 8.6 g/dL (13.0-16.5)
[2023-04-07] MEDS: Atorvastatin Calcium 20 MG Tablet PO (22:22)
[2023-04-07] MEDS: Insulin Glargine-YFGN 100 UNIT/ML Pen 10 UNIT SC (22:24)
[2023-04-08 01:15] LABS: Bedside Glucose 178 mg/dL (74-106)
[2023-04-08 01:26] LABS: Hemoglobin 8.3 g/dL (13.0-16.5)
[2023-04-08 03:00] VITALS: BP 121/66; PULSE 78; RESP 19; TEMP 36.2; O2SAT 98
[2023-04-08 06:00] VITALS: BMI 35.2
[2023-04-08 06:34] LABS: Absolute Lymphocyte Count 0.88 X10^3/uL (0.83-4.51); Basophil# 0.01 X10^3/uL; Basophil% 0.3 % (0-1); Eosinophil# 0.03 X10^3/uL; Hematocrit 25.5 % (40-54); Hemoglobin 8.2 g/dL (13.0-16.5); Lymphocyte # 0.88 X10^3/ul (0.83-4.51); Lymphocyte % 27.9 % (19-41); Mean Corp Hgb Conc 32.2 g/dL (32-36); Mean Corpuscular Hgb 32.9 pg (27.0-32.0); Mean Corpuscular Volume 102.4 fL (80-94); Mean Platelet Vol. 11.5 fl (6.2-12.0); Monocyte# 0.18 X10^3/uL; Monocyte% 5.7 % (0-10); Neutrophil # 1.99 X10^3/uL (2.7-7.7); Neutrophil % 63.2 % (47-70); POSITIVE COUNT YES; POSITIVE MORPHOLOGY YES; Platelet Count 71 K/mm3 (150-450); RBC Distribution Width CV 24.6 % (11.6-14.6); RBC Distribution Width SD 87.1 fl (35.1-43.9); Red Blood Count 2.49 M/mm3 (4.6-6.2); White Blood Count 3.2 K/mm3 (4.4-11.0)
[2023-04-08 06:36] LABS: Differential Indicated SCAN CRITERIA MET
[2023-04-08 06:50] LABS: Bedside Glucose 192 mg/dL (74-106)
[2023-04-08 07:00] LABS: Anisocytosis 2+; Differential Comment SCANNED; Macrocytosis 1+; Microcytosis 1+; Platelet Estimate MOD DEC (ADEQ)
--- NOTE | 2023-04-08 07:00 | US_ITS ---
STUDY: ABDOMINAL ULTRASOUND - RIGHT UPPER QUADRANT REASON FOR VISIT: Male, 87 years old cirrhosis TECHNIQUE: Ultrasound evaluation of the right upper quadrant was performed with real-time and static brenner-scale imaging. TECHNICAL QUALITY: Adequate. COMPARISON: None. FINDINGS: Liver: The liver is mildly enlarged and measures 17.4 cm. There is increased echogenicity consistent with fatty infiltration. The bile ducts are within normal limits. There is hepatic color flow. The direction of portal flow is hepatopetal. There is no demonstrated mass lesion. Gallbladder: The patient is status post cholecystectomy. Common Bile Duct (C.B.D.): The common bile duct measures 5 mm. Pancreas: Normal size of the head, body and tail of the pancreas. There is normal echogenicity of the pancreas. There is no demonstrated pancreatic mass or cyst. Right Kidney: Normal size of the right kidney. The right kidney measures 12.9 cm x 7.6 cm x 6.4 cm. Normal renal cortex. The right cortex measures 1.7 cm. Multiple cysts are seen. The largest is in the lower pole and measures 7.6 cm x 6.4 cm x 6.6 cm. There is no right hydronephrosis. US/Liver IMPRESSION: Fatty infiltration of the liver and borderline hepatomegaly. Multiple right renal cysts. Electronically Signed: Lobo Eden MD at 10:27 EDT ,
[2023-04-08 07:02] LABS: AST(SGOT) 44 U/L (15-37); Alanine Aminotransfer ALT/SGPT 38 U/L (16-61); Albumin, Serum 2.9 g/dL (3.2-5.0); Alkaline Phosphatase 86 U/L (45-117); Anion Gap 5 (5-15); BUN 28 mg/dL (7-18); BUN/Creat Ratio 15.4 RATIO (10-20); Calcium,Total 8.2 mg/dL (8.5-10.1); Chloride 110 mmol/L (98-107); Creatinine, Serum 1.82 mg/dL (0.70-1.30); EST Glomerular Filtration Rate 38 mL/min (>60); Est Glom Filt Rate - Afr Amer 46 mL/min (>60); Estimated Creatinine Clearance 27.66 ml/min; Glucose 175 mg/dL (74-106); Potassium 4.2 mmol/L (3.5-5.1); Protein, Total 5.9 g/dL (6.4-8.2); Sodium Level 140 mmol/L (136-145)
[2023-04-08 07:26] VITALS: O2SAT 98
[2023-04-08 10:00] VITALS: BP 129/56; PULSE 66; RESP 16; TEMP 36.9; O2SAT 93
[2023-04-08 10:01] VITALS: BP 129/56; PULSE 66
[2023-04-08] MEDS: Allopurinol 100 MG Tablet PO (10:01)
[2023-04-08] MEDS: Metoprolol(XL)Succ 50 MG Tablet PO (10:01)
[2023-04-08] MEDS: Gabapentin 300 MG Capsule PO ×2 (10:07→16:44)
[2023-04-08] MEDS: Sucralfate 1 GM Tablet PO ×3 (11:09→21:03)
[2023-04-08] MEDS: Insulin Lispro 100 UNIT/ML INSULN.PEN SC ×3 (11:55→21:03)
[2023-04-08 12:14] LABS: Bedside Glucose 241 mg/dL (74-106)
--- NOTE | 2023-04-08 12:21 | CHAPLAIN ---
Type of Pastoral Visit _x__ Initial Visit ___ Follow-up Visit ___ On-call Visit ___ General Patient Visit ___ Spiritual Assessment ___ Family Conference ___ Bereavement ___ Rapid Response ___ Code Blue ___ Other (describe below) Pastoral Care Referral From _x__ Patient ___ Family ___ Nurse ___ Physician ___ Steam Trap Man ___ Technology Advisor ___ Other (describe below) Sacrament/Intervention _x__ Active listening ___ Anointing ___ Religious ___ Bereavement ___ Communion ___ Belinda exploration ___ _x__ Life review _x__ Prayer ___ Reconciliation ___ Sacrament of Sick ___ Supportive presence ___ Wedding ___ Other (describe below) Pastoral Comments patient and spouse in the room; both declare that pt is feeling better; pt is encouraged and speaks of taking a good walk in the hallway; pt gives some recent life review and welcomes a prayer; pt is long time member of a local [employer]; pt has no other concerns
--- NOTE | 2023-04-08 13:47 | PCM.PN.HOSP ---
Reason for Visit Reason for Visit: Diagnoses Chronic lymphocytic leukemia of B-cell type not having achieved remission (04/06/23) Atherosclerotic heart disease of [place] coronary artery without angina pectoris (04/06/23) Unspecified cirrhosis of liver (04/06/23) Gastrointestinal hemorrhage, 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04/06/23) Chronic kidney disease, stage 3 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04/06/23) Presence of coronary angioplasty implant and graft (04/06/23) Subjective Subjective Still has not had bowel movement but is feeling better today overall, no bleeding appreciated Objective Data Objective Data Vital Signs: Vital Signs Temp Pulse Resp BP Pulse Ox O2 Del Method O2 Flow Rate 98.5 F 66 16 129/56 H 93 Room Air 2 04/08/23 10:00 04/08/23 10:01 04/08/23 10:00 04/08/23 10:01 04/08/23 10:00 04/08/23 10:00 04/08/23 07:53 Oxygen Flow Rate (L/min) 2 Oxygen Delivery Method Room Air Weight: 105.2 kg Body Mass Index (BMI) 35.2 Intake & Output: Intake and Output for Last 24 Hours 04/06/23 04/07/23 04/08/23 23:59 23:59 23:59 Intake Total 535 / 535 1962.01 / 1962.01 560.04 / 560.04 Output Total 600 / 600 1300 / 1300 Balance -65 / -65 662.01 / 662.01 560.04 / 560.04 Lab / Micro Data Result Diagrams: 04/08/23 05:43 04/08/23 05:43 Labs: Laboratory Results - last 24 hr 04/06/23 05:53: Crossmatch See Detail 04/07/23 05:43: Diff Path Review Reviewed 04/07/23 16:26: POC Glucose 177 H 04/07/23 17:05: Hgb 10.2 L 04/07/23 21:20: Hgb 8.6 L 04/07/23 22:20: POC Glucose 178 H 04/08/23 01:08: Hgb 8.3 L 04/08/23 05:43: WBC 3.2 L, RBC 2.49 L, Hgb 8.2 L, Hct 25.5 L, MCV 102.4 H D, MCH 32.9 H, MCHC 32.2, RDW Std Deviation 87.1 H, RDW Coeff of Beto 24.6 H, Plt Count 71 L, MPV 11.5, Immature Gran % (Auto) 1.900 H, Neut % (Auto) 63.2, Lymph % (Auto) 27.9, [place] % (Auto) 5.7, Eos % (Auto) 1.0, Baso % (Auto) 0.3, Absolute Neuts (auto) 2.0, Absolute Lymphs (auto) 0.88, Nucleated RBC % 1.0, Differential Comment SCANNED, Platelet Estimate MOD DEC, Anisocytosis 2+, Microcytosis 1+, Macrocytosis 1+ 04/08/23 05:43: Sodium 140, Potassium 4.2, Chloride 110 H, Carbon Dioxide 25.0, Anion Gap 5, BUN 28 H, Creatinine 1.82 H, Estim Creat Clear Calc 27.66, Est GFR (MDRD) Af Amer 46 L, Est GFR (MDRD) Non-Af 38 L, BUN/Creatinine Ratio 15.4, Glucose 175 H, Calcium 8.2 L, Total Bilirubin 2.50 H, AST 44 H, ALT 38, Alkaline Phosphatase 86, Total Protein 5.9 L, Albumin 2.9 L, Globulin 3.0, Albumin/Globulin Ratio 1.0 04/08/23 06:17: POC Glucose 192 H 04/08/23 11:53: POC Glucose 241 H Micro: Microbiology 04/06/23 06:00 Stool Stool Occult Blood (SAMMY) - Final Occult Blood Positive Radiography Diagnostic Testing: Radiology Impression Liver Ultrasound 04/08/23 07:00 IMPRESSION: Fatty infiltration of the liver and borderline hepatomegaly. Multiple right renal cysts. Electronically Signed: Loob Eden MD at 10:27 EDT , Physical Exam Narrative General: Alert, oriented, no apparent distress HEENT: Atraumatic, normocephalic Eyes: Anicteric, normal conjunctiva, extraocular movements grossly intact Neck: Supple Respiratory: Clear to auscultation bilaterally, normal respiratory effort Cardiovascular: Regular rate and rhythm GI: Soft, no rebound, guarding, rigidity, Extremities: Trace to 1+ edema in lower extremities Musculoskeletal: Moving all extremities Neuro: No overt focal neurological deficits Skin: No rashes appreciated Psych: Cooperative Assessment & Plan Assessment/Plan (1) Acute GI bleeding: (2) Chronic lymphocytic leukemia of B-cell type: (3) Stage 3 chronic kidney disease: (4) Presence of stent in coronary artery in patient with coronary artery disease: PLAN: Plan #Acute blood loss anemia secondary to oozing gastric ulcer, angiodysplastic lesions -Recent admit to [facility] hospital for acute on chronic anemia 2/2 upper GIB with endoscopy revealing several punctate ulcers in the antrum with H. 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 This a.m. hemoglobin 6.8, 2 units of packed red blood cells to be transfused. He still on IV PPI and octreotide. Hemoglobin improved to 10.2. Discussed with GI, continue liquid diet at this time and continue current management. Can consider advancing tomorrow if doing well/stable -04/08: 1 hemoglobin of 10.2 after transfusion however since then has consistently been in the eights, suspect 10.2 was spurious but hemoglobin has been stable no further blood loss noted. PPI twice daily, advance diet per GI. Discussed with GI, possible DC tomorrow if stable. Given age and recent bleed and risk factors monitoring closely #Hx CAD w/ stents 12 years ago -Hold aspirin -Continue statin -Continue beta-tricia at half dose and can increase as tolerated -Patient reports being on Eliquis for his coronary artery disease and denies any clots or history of A-fib, will attempt to review external records if available -04/07: No aspirin for 14 days #Type 2 diabetes mellitus -Glucose checks and sliding scale insulin -Patient reports taking 22 units long-acting at bedtime, will start on slightly lower dose and titrate -Hold glimepiride #YU versus CKD unclear subtype -Creatinine 2.25 but no baseline in our system -Trend BMP -Avoid nephrotoxic agents -04/07: Slightly better today -04/08: Continues to improve. On liver ultrasound did not note multiple renal cysts #Fatty infiltration of the liver/elevated bilirubin -GI following -Has had uptrending bilirubin but normal ALT, AST 44 and no acute complaints -No bile duct abnormality seen on liver ultrasound with a history of cholecystectomy -No other signs concerning for hemolysis and patient has no other complaints pointing to specific infection, will also check direct bilirubin and monitor for signs or symptoms of other underlying etiology to direct further work-up necessary #chronic b cell CLL -By history #Pancytopenia -No baseline available in our system, fairly similar to yesterday, will need outpatient follow-up if he is not already established supervisor crack off -04/08: Remains pancytopenic with slight downtrend in platelet count and hemoglobin and white blood cell count fairly unchanged #DVT ppx: SCDs Mary Ellen Velez MD Time spent in the patient's overall evaluation,decision-making process, review of diagnostic data, adjustment of management, discussion with other providers, nursing nursing and ancillary staff involved in patient's care documentation, 30 minutes Charges/Coding Visit Charges Inpatient E&M: 32663 Subs Hosp L2
[2023-04-08 16:00] VITALS: BP 123/50; PULSE 64; RESP 16; TEMP 36.8; O2SAT 95
[2023-04-08 17:05] LABS: Bedside Glucose 154 mg/dL (74-106)
--- NOTE | 2023-04-08 17:57 | EX.PCM.PN.GI ---
Subjective Subjective Patient underwent an upper endoscopy yesterday for an acute upper GI bleed. He was discovered to have 2 areas of bleeding in his stomach that was treated endoscopically. He has been on octreotide and PPI drip since. Objective Data Objective Data Vital Signs: Vital Signs Temp Pulse Resp BP Pulse Ox O2 Del Method O2 Flow Rate 98.3 F 64 16 123/50 H 95 Room Air 2 04/08/23 16:00 04/08/23 16:00 04/08/23 16:00 04/08/23 16:00 04/08/23 16:00 04/08/23 16:00 04/08/23 07:53 Oxygen Flow Rate (L/min) 2 Oxygen Delivery Method Room Air Weight: 231 lb 14.821 oz Body Mass Index (BMI) 35.2 Intake & Output: Intake and Output for Last 24 Hours 04/06/23 04/07/23 04/08/23 23:59 23:59 23:59 Intake Total 535 / 535 1962.01 / 1962.01 1400.04 / 1400.04 Output Total 600 / 600 1300 / 1300 500 / 500 Balance -65 / -65 662.01 / 662.01 900.04 / 900.04 Lab / Micro Data Result Diagrams: 04/08/23 05:43 04/08/23 05:43 Labs: Laboratory Results - last 24 hr 04/07/23 21:20: Hgb 8.6 L 04/07/23 22:20: POC Glucose 178 H 04/08/23 01:08: Hgb 8.3 L 04/08/23 05:43: WBC 3.2 L, RBC 2.49 L, Hgb 8.2 L, Hct 25.5 L, MCV 102.4 H D, MCH 32.9 H, MCHC 32.2, RDW Std Deviation 87.1 H, RDW Coeff of Beto 24.6 H, Plt Count 71 L, MPV 11.5, Immature Gran % (Auto) 1.900 H, Neut % (Auto) 63.2, Lymph % (Auto) 27.9, [place] % (Auto) 5.7, Eos % (Auto) 1.0, Baso % (Auto) 0.3, Absolute Neuts (auto) 2.0, Absolute Lymphs (auto) 0.88, Nucleated RBC % 1.0, Differential Comment SCANNED, Platelet Estimate MOD DEC, Anisocytosis 2+, Microcytosis 1+, Macrocytosis 1+ 04/08/23 05:43: Sodium 140, Potassium 4.2, Chloride 110 H, Carbon Dioxide 25.0, Anion Gap 5, BUN 28 H, Creatinine 1.82 H, Estim Creat Clear Calc 27.66, Est GFR (MDRD) Af Amer 46 L, Est GFR (MDRD) Non-Af 38 L, BUN/Creatinine Ratio 15.4, Glucose 175 H, Calcium 8.2 L, Total Bilirubin 2.50 H, AST 44 H, ALT 38, Alkaline Phosphatase 86, Total Protein 5.9 L, Albumin 2.9 L, Globulin 3.0, Albumin/Globulin Ratio 1.0 04/08/23 06:17: POC Glucose 192 H 04/08/23 11:53: POC Glucose 241 H 04/08/23 16:42: POC Glucose 154 H Micro: Microbiology 04/06/23 06:00 Stool Stool Occult Blood (SAMMY) - Final Occult Blood Positive Radiography Diagnostic Testing: Radiology Impression Liver Ultrasound 04/08/23 07:00 IMPRESSION: Fatty infiltration of the liver and borderline hepatomegaly. Multiple right renal cysts. Electronically Signed: Lobo Eden MD at 10:27 EDT , Physical Exam Narrative General: Alert, oriented, no apparent distress HEENT: Atraumatic, normocephalic Eyes: Anicteric, normal conjunctiva, extraocular movements grossly intact Neck: Supple Respiratory: Clear to auscultation bilaterally, normal respiratory effort Cardiovascular: Regular rate and rhythm GI: Soft, no rebound, guarding, rigidity, Extremities: Trace to 1+ edema in lower extremities Musculoskeletal: Moving all extremities Neuro: No overt focal neurological deficits Skin: No rashes appreciated Psych: Cooperative Assessment & Plan Assessment/Plan (1) Acute GI bleeding: (2) Chronic lymphocytic leukemia of B-cell type: (3) Stage 3 chronic kidney disease: (4) Presence of stent in coronary artery in patient with coronary artery disease: (5) Cirrhosis: PLAN: Plan 87-year-old gentleman with history of hypertension, COPD, CAD status post stents, atrial fibrillation, gout with a recent upper GI bleed thought to be secondary to ulcerations in the gastric antrum along with angiodysplasia seen in upper GI tract. This was treated endoscopically. He remains off of blood thinners and is on PPI drip and octreotide. He received transfusion 2 units of packed red blood cells. 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 I will check an ammonia level. He should be on lactulose 30 cc twice a day.. His aspirin and Eliquis are on hold. Alpha-fetoprotein to screen for liver cancer. Ffurther recommendations to follow 04/08: I told the patient's that I would not recommend any anticoagulants due to his age, underlying pancytopenia and likely cirrhosis. I believe he has bone marrow suppression contributing to his pancytopenia. His hemoglobin is stable at 8.2 and I am okay with stopping octreotide and PPI drip and switching him to oral PPI therapy only. Charges/Coding Visit Charges Inpatient E&M: 58377 Subs Hosp L3
[2023-04-08 20:06] VITALS: BP 116/59; PULSE 70; RESP 18; TEMP 36.7; O2SAT 95
[2023-04-08] MEDS: Polyethylene Glycol 3350 17 GM PACKET PO (21:03)
[2023-04-08] MEDS: Pantoprazole Sodium 40 MG Tablet PO (21:03)
[2023-04-08] MEDS: Atorvastatin Calcium 20 MG Tablet PO (21:03)
[2023-04-08] MEDS: Insulin Glargine-YFGN 100 UNIT/ML Pen 10 UNIT SC (21:04)
[2023-04-08 21:43] LABS: Bedside Glucose 163 mg/dL (74-106)
[2023-04-09 02:06] VITALS: BP 105/43; PULSE 68; RESP 16; TEMP 36.5; O2SAT 100
[2023-04-09 03:41] VITALS: BMI 35.0
[2023-04-09 06:10] LABS: Absolute Lymphocyte Count 0.96 X10^3/uL (0.83-4.51); Absolute Neutrophil Count 1.4 X10^3/uL (2.0-7.7); Basophil# 0.01 X10^3/uL; Basophil% 0.4 % (0-1); Eosinophil# 0.05 X10^3/uL; Eosinophils% 1.9 % (0-5); Hematocrit 25.9 % (40-54); Hemoglobin 8.7 g/dL (13.0-16.5); Lymphocyte # 0.96 X10^3/ul (0.83-4.51); Lymphocyte % 37.1 % (19-41); Mean Corp Hgb Conc 33.6 g/dL (32-36); Mean Corpuscular Hgb 33.7 pg (27.0-32.0); Mean Corpuscular Volume 100.4 fL (80-94); Mean Platelet Vol. 10.5 fl (6.2-12.0); Monocyte# 0.12 X10^3/uL; Monocyte% 4.6 % (0-10); NRBC Flagged by Analyzer 0 % (0-5); Neutrophil # 1.42 X10^3/uL (2.7-7.7); Neutrophil % 54.8 % (47-70); POSITIVE COUNT YES; POSITIVE MORPHOLOGY YES; Platelet Count 77 K/mm3 (150-450); RBC Distribution Width CV 23.5 % (11.6-14.6); RBC Distribution Width SD 83.7 fl (35.1-43.9); Red Blood Count 2.58 M/mm3 (4.6-6.2); White Blood Count 2.6 K/mm3 (4.4-11.0)
[2023-04-09 06:13] LABS: Differential Indicated SCAN CRITERIA MET
[2023-04-09 06:29] VITALS: BP 120/59; PULSE 70; RESP 16; TEMP 36.7; O2SAT 98
[2023-04-09] MEDS: Sucralfate 1 GM Tablet PO ×2 (06:35→11:10)
[2023-04-09] MEDS: Insulin Lispro 100 UNIT/ML INSULN.PEN SC ×2 (06:35→11:13)
[2023-04-09 06:36] LABS: Anisocytosis 1+; Differential Comment SCANNED; Macrocytosis 1+
[2023-04-09 06:37] LABS: Hypochromasia RARE; Tear Drop Cell RARE
[2023-04-09 07:03] LABS: ALB/GLOB Ratio 0.8 RATIO (0.9-2.4); AST(SGOT) 36 U/L (15-37); Alanine Aminotransfer ALT/SGPT 37 U/L (16-61); Albumin, Serum 2.9 g/dL (3.2-5.0); Alkaline Phosphatase 113 U/L (45-117); Anion Gap 6 (5-15); BUN 30 mg/dL (7-18); BUN/Creat Ratio 14.7 RATIO (10-20); Bilirubin, Direct 0.69 mg/dL (0.00-0.30); Calcium,Total 8.4 mg/dL (8.5-10.1); Chloride 113 mmol/L (98-107); Creatinine, Serum 2.04 mg/dL (0.70-1.30); EST Glomerular Filtration Rate 33 mL/min (>60); Est Glom Filt Rate - Afr Amer 40 mL/min (>60); Estimated Creatinine Clearance 24.68 ml/min; Globulin 3.5 g/dL (2.2-4.2); Glucose 160 mg/dL (74-106); Potassium 4.2 mmol/L (3.5-5.1); Protein, Total 6.4 g/dL (6.4-8.2); Sodium Level 140 mmol/L (136-145)
[2023-04-09 07:07] LABS: Bedside Glucose 178 mg/dL (74-106)
[2023-04-09 08:45] VITALS: O2SAT 96
[2023-04-09 09:37] VITALS: BP 138/62; PULSE 78
[2023-04-09] MEDS: Gabapentin 300 MG Capsule PO (09:37)
[2023-04-09] MEDS: Allopurinol 100 MG Tablet PO (09:37)
[2023-04-09] MEDS: Metoprolol(XL)Succ 50 MG Tablet PO (09:37)
[2023-04-09] MEDS: Pantoprazole Sodium 40 MG Tablet PO (09:37)
--- NOTE | 2023-04-09 10:01 | CASEMGMT ---
Discharge Planning HH list created and given to RN FABIAN Bañuelos DC Planning Asst.
--- NOTE | 2023-04-09 10:33 | CASEMGMT ---
SOSA PERALTA NOTE: Therapy notes from yesterday reviewed. HHC recommended. SOSA PERALTA to room. Pt sitting up in recliner chair. @ bedside. Introduced self and role. Discussed therapy recommendations for HHC and discharge planning. Pt states he has had HHC in the past and does not feel that he needs them at this time. He states he knows what exercises to do @ home. He used [facility] w/therapy yesterday and today and states he has one @ home he can use. Pt made aware if he changes his mind about HHC once returns home, to discuss this w/his PCP. He voices understanding. Pt provided w/list of HHC agencies in pt's area to have to refer to if he is interested in the future. Pt and deny having any discharge needs or concerns. Ozzy MATHUR RN, CM
[2023-04-09 11:05] VITALS: BP 132/77; PULSE 73; RESP 16; TEMP 36.5; O2SAT 93
[2023-04-09] MEDS: Lactulose 20 GM/30 ML UDC 30 GM PO (11:09)
--- NOTE | 2023-04-09 11:50 | DCINST_ITS ---
Discharge Instructions Diet Discharge Diet: 2000 mg Sodium Diet and - (-DASH diet, 3000 mg sodium restriction, 2 L fluid restriction) Activity Discharge Activity: Return to Normal Activity Follow Up Care Test Results: Test results from this visit will be discussed in further detail at your follow- up appointment, if applicable. Discharge Plan Admission Admit Date/Time: 04/06/23 08:01 Primary Reason for Your Visit: Dark tarry stools Attending Provider: Mary Ellen Velez Primary Care Provider: Palmira Cazares Instructions Patient Instructions: ED Upper GI Bleeding (Stable) Additional Instructions / Restrictions: DISCHARGE INSTRUCTIONS PLEASE READ *Please take this with you to your next doctors appointment* -You will need to take sucralfate 1 g three times daily and pantoprazole 40 mg twice daily for 8 weeks. After 8 weeks your pantoprazole may be decreased to once daily but will defer this to your outpatient physician -No aspirin, ibuprofen, naproxen, or other non-steroidal anti-inflammatory drugs for 2 weeks, after that time we will discuss risks and benefits of aspirin with your primary care physician as it may be reasonable to discontinue this entirely -After discussing with you and the marketing reporting analyst your Eliquis has been disc ontinued due to recurrent bleeding and risks likely outweighing benefits -Please follow with your marketing reporting analyst upon discharge. If you are not yet established with a GI doctor and follow in our [place] office and call to schedule a follow-up appointment (ph. [phone]) -You have been started on lactulose 30 g twice daily for your liver, this can be further adjusted in the future to achieve 2-3 bowel movements daily -Would recommend lab work (CBC and CMP) to check your hemoglobin, liver, and kidney function in 2 to 3 days through your primary care physician's office. Please call their office upon discharge to obtain order for lab work. -Continue your long-acting insulin at 10 units subcutaneously as this is controlled your glucose during her hospitalization. Given your kidney function would recommend against using Januvia and given your age and concurrent insulin use would recommend against using glimepiride. -Your metoprolol was decreased to 50 mg daily due to your blood pressure and heart rate -Weigh yourself every day. A sudden weight gain can mean you are retaining fluid. Weigh yourself at the same time of day and in the same kind of clothes. Ideally, weigh yourself first thing in the morning after you empty your bladder, but before you eat breakfast. -Please call your physician if your weight goes up by more than 2 pounds in 1 day or 5 pounds in 1 week. This can be a sign that you are retaining more fluid than you should be. -Please call your primary care provider's office upon discharge to schedule a hospital follow up within 1 week. -For any concerning signs or symptoms please call 911 or proceed to the nearest emergency department Discharge Orders/Prescriptions Prescriptions: New pantoprazole 40 mg Tablet,Delayed Release (Dr/Ec) 40 mg PO BID 30 Days Qty: 60 0RF lactulose 20 gram/30 mL Solution 30 g PO BID 30 Days Qty: 2700 0RF Continued multivitamin Tablet 1 tab PO DAILY atorvastatin 20 mg Tablet 20 mg PO DAILY allopurinol 100 mg Tablet 100 mg PO DAILY amlodipine 10 mg Tablet 10 mg PO DAILY ferrous sulfate 325 mg (65 mg iron) Tablet 325 mg PO DAILY gabapentin 300 mg Capsule 300 mg PO BID furosemide 20 mg Tablet 20 mg PO BID insulin glargine [Lantus Solostar U-100 Insulin] 100 unit/mL (3 mL) insulin pen SUBCUT Label Comments: inject 30 units daily Changed sucralfate [Carafate] 1 gram Tablet 1 g PO TIDCM 30 Days Qty: 90 0RF metoprolol succinate 100 mg Tablet Extended Release 24 Hr 50 mg PO DAILY 30 Days Qty: 0 0RF Discontinued glimepiride 2 mg Tablet 2 mg PO DAILY famotidine 20 mg Tablet 20 mg PO BID aspirin 81 mg Tablet 81 mg PO DAILY Eliquis 2.5 mg Tablet 2.5 mg PO BID Januvia 100 mg tablet Label Comments: TAKE 1 TABLET BY MOUTH DAILY Referrals / Follow Up: Palmira Cazares MD [Primary Care Provider] - 04/21/23 4:00 pm Disposition Disposition (needs filled in before D/C Order can be placed): Home, Self Care
--- NOTE | 2023-04-09 11:54 | PCM.DC.SUM ---
Providers Date of Admission: 04/06/23 Date of Discharge: 04/09/23 Primary Care Physician: Dr. 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 Code(s): C91.10 - Chronic lymphocytic leukemia of B-cell type not having achieved remission (3) Stage 3 chronic kidney disease: Status: Chronic Code(s): N18.30 - Chronic kidney disease, stage 3 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4) Presence of stent in coronary artery in patient with coronary artery disease: Status: Acute Code(s): I25.10 - Atherosclerotic heart disease of [place] coronary artery without angina pectoris; Z95.5 - Presence of coronary angioplasty implant and graft (5) Cirrhosis: Status: Acute Code(s): K74.60 - Unspecified cirrhosis of liver (6) Diabetes: Status: Acute Code(s): E11.9 - Type 2 diabetes mellitus without complications (7) Gastric ulcer: Status: Acute Code(s): K25.9 - Gastric ulcer, unspecified as acute or chronic, without hemorrhage or perforation Plan #Acute blood loss anemia secondary to oozing gastric ulcer, angiodysplastic lesions #Hx CAD w/ stents 12 years ago #Type 2 diabetes mellitus #CKD IIIb/?IV #Cirrhosis #chronic b cell CLL #Pancytopenia Medications at Discharge Home Medications allopurinol 100 mg tablet 100 mg PO DAILY 04/06/23 amlodipine 10 mg tablet 10 mg PO DAILY 04/06/23 atorvastatin 20 mg tablet 20 mg PO DAILY 04/06/23 ferrous sulfate 325 mg (65 mg iron) tablet 325 mg PO DAILY 04/06/23 furosemide 20 mg tablet 20 mg PO BID 04/06/23 gabapentin 300 mg capsule 300 mg PO BID 04/06/23 multivitamin 1 tab PO DAILY 04/06/23 insulin glargine 100 unit/mL (3 mL) subcutaneous pen (Lantus Solostar U-100 Insulin) unit subcut Check with primary doctor 04/09/23 lactulose 20 gram/30 mL oral solution 30 g (45 mL) PO BID 30 days #2,700 mL 04/09/23 metoprolol succinate 100 mg tablet,extended release 24 hr 50 mg PO DAILY 30 days #0 tabs 04/09/23 pantoprazole 40 mg tablet,delayed release 40 mg PO BID 30 days #60 tabs 04/09/23 sucralfate 1 gram tablet (Carafate) 1 g PO TIDCM 30 days #90 tabs 04/09/23 Hospital Course Procedures EGD Summary of Care Provided Minutes Spent on Discharge: 40 Hospital Course: Jason Chaves 87-year-old male history of coronary artery disease with stent placement 12 years ago, chronic bcell CLL, DMII, gout, hypertension, peptic ulcer disease on Pepcid and sucralfate who presented to [facility] 04/06/2023 for black tarry stools. He had an EGD several weeks prior to presentation and was told he had several punctate ulcers in the antrum and was discharged on famotidine and sucralfate. He is on Eliquis and takes this actively but was taking decreased dose of 2.5 twice daily. 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 Hemoglobin the next morning was 6.8 and he received 2 more units of packed red blood cells and no further evidence of bleeding suspect this has been a continued downtrend from the day before. He was on PPI and octreotide drips and slowly tolerated increase in diet. Also given his pancytopenia he had liver evaluation and GI diagnosed him with cirrhosis and recommended starting lactulose. Patient did well on day of discharge reports he had not had a bowel movement but is having abdominal pain and passing gas and has been started on lactulose, patient like to go home and is feeling well. No blood per rectum or dark tarry stools. Discharge instructions as followed: DISCHARGE INSTRUCTIONS PLEASE READ *Please take this with you to your next doctors appointment* -You will need to take sucralfate 1 g three times daily and pantoprazole 40 mg twice daily for 8 weeks.? After 8 weeks your pantoprazole may be decreased to once daily but will defer this to your outpatient physician -No aspirin, ibuprofen, naproxen, or other non-steroidal anti-inflammatory drugs for 2 weeks, after that time we will discuss risks and benefits of aspirin with your primary care physician as it may be reasonable to discontinue this entirely -After discussing with you and the fortune cookie maker your Eliquis has been discontinued due to recurrent bleeding and risks likely outweighing benefits -Please follow with your fortune cookie maker upon discharge.? If you are not yet established with a GI doctor and follow in our [place] office and call to schedule a follow-up appointment (ph. [phone]) -You have been started on lactulose 30 g twice daily for your liver, this can be further adjusted in the future to achieve 2-3 bowel movements daily -Would recommend lab work (CBC and CMP) to check your hemoglobin, liver, and kidney function in 2 to 3 days through your primary care physician's office.? Please call their office upon discharge to obtain order for lab work. -Continue your long-acting insulin at 10 units subcutaneously as this is controlled your glucose during her hospitalization.? Given your kidney function would recommend against using Januvia and given your age and concurrent insulin use would recommend against using glimepiride. -Your metoprolol was decreased to 50 mg daily due to your blood pressure and heart rate -Weigh yourself every day. A sudden weight gain can mean you are retaining fluid. Weigh yourself at the same time of day and in the same kind of clothes. Ideally, weigh yourself first thing in the morning after you empty your bladder, but before you eat breakfast. -Please call your physician if your weight goes up by more than 2 pounds in 1 day or 5 pounds in 1 week. This can be a sign that you are retaining more fluid than you should be. -Please call your primary care provider's office upon discharge to schedule a hospital follow up within 1 week. -For any concerning signs or symptoms please call 911 or proceed to the nearest emergency department Physical Exam Narrative General: Alert, oriented, no apparent distress HEENT: Atraumatic, normocephalic Eyes: Anicteric, normal conjunctiva, extraocular movements grossly intact Neck: Supple Respiratory: Clear to auscultation bilaterally, normal respiratory effort Cardiovascular: Regular rate and rhythm GI: Soft, no rebound, guarding, rigidity, Extremities: Trace to 1+ edema in lower extremities Musculoskeletal: Moving all extremities Neuro: No overt focal neurological deficits Skin: No rashes appreciated Psych: Cooperative Weight / BMI Weight Weight: 104.644 kg Body Mass Index (BMI) 35.0 ABG / Lab / Microbiology Data Result Diagrams: 04/09/23 05:45 04/09/23 05:45 Laboratory: Laboratory Results - last 24 hr 04/08/23 11:53: POC Glucose 241 H 04/08/23 16:42: POC Glucose 154 H 04/08/23 21:02: POC Glucose 163 H 04/09/23 05:45: WBC 2.6 L, RBC 2.58 L, Hgb 8.7 L, Hct 25.9 L, MCV 100.4 H, MCH 33.7 H, MCHC 33.6, RDW Std Deviation 83.7 H, RDW Coeff of [place] 23.5 H, Plt Count 77 L, MPV 10.5, Immature Gran % (Auto) 1.200 H, Neut % (Auto) 54.8, Lymph % (Auto) 37.1, [place] % (Auto) 4.6, Eos % (Auto) 1.9, Baso % (Auto) 0.4, Absolute Neuts (auto) 1.4 L, Absolute Lymphs (auto) 0.96, Nucleated RBC % 0, Differential Comment SCANNED, Hypochromasia RARE, Anisocytosis 1+, Macrocytosis 1+, Tear Drop Cells RARE 04/09/23 05:45: Sodium 140, Potassium 4.2, Chloride 113 H, Carbon Dioxide 21.0, Anion Gap 6, BUN 30 H, Creatinine 2.04 H, Estim Creat Clear Calc 24.68, Est GFR (MDRD) Af Amer 40 L, Est GFR (MDRD) Non-Af 33 L, BUN/Creatinine Ratio 14.7, Glucose 160 H, Calcium 8.4 L, Total Bilirubin 2.00 H, Direct Bilirubin 0.69 H, AST 36, ALT 37, Alkaline Phosphatase 113, Total Protein 6.4, Albumin 2.9 L, Globulin 3.5, Albumin/Globulin Ratio 0.8 L 04/09/23 06:31: POC Glucose 178 H 04/09/23 09:11: Ammonia 41.0 H Microbiology: Microbiology 04/06/23 06:00 Stool Stool Occult Blood (SAMMY) - Final Occult Blood Positive D/C Instructions Discharge Diet: 2000 mg Sodium Diet and - (-DASH diet, 3000 mg sodium restriction, 2 L fluid restriction) Meaningful Use Info Meaningful Use Diagnoses (Choose all that apply): None applicable Discharge Plan Admission Admit Date/Time: 04/06/23 08:01 Primary Reason for Your Visit: Dark tarry stools Attending Provider: Mary Ellen Velez Primary Care Provider: Palmira Cazares Instructions Patient Instructions: ED Upper GI Bleeding (Stable) Additional Instructions / Restrictions: DISCHARGE INSTRUCTIONS PLEASE READ *Please take this with you to your next doctors appointment* -You will need to take sucralfate 1 g three times daily and pantoprazole 40 mg twice daily for 8 weeks. After 8 weeks your pantoprazole may be decreased to once daily but will defer this to your outpatient physician -No aspirin, ibuprofen, naproxen, or other non-steroidal anti-inflammatory drugs for 2 weeks, after that time we will discuss risks and benefits of aspirin with your primary care physician as it may be reasonable to discontinue this entirely -After discussing with you and the fortune cookie maker your Eliquis has been discontinued due to recurrent bleeding and risks likely outweighing benefits -Please follow with your fortune cookie maker upon discharge. If you are not yet established with a GI doctor and follow in our [place] office and call to schedule a follow-up appointment (ph. [phone]) -You have been started on lactulose 30 g twice daily for your liver, this can be further adjusted in the future to achieve 2-3 bowel movements daily -Would recommend lab work (CBC and CMP) to check your hemoglobin, liver, and kidney function in 2 to 3 days through your primary care physician's office. Please call their office upon discharge to obtain order for lab work. -Continue your long-acting insulin at 10 units subcutaneously as this is controlled your glucose during her hospitalization. Given your kidney function would recommend against using Januvia and given your age and concurrent insulin use would recommend against using glimepiride. -Your metoprolol was decreased to 50 mg daily due to your blood pressure and heart rate -Weigh yourself every day. A sudden weight gain can mean you are retaining fluid. Weigh yourself at the same time of day and in the same kind of clothes. Ideally, weigh yourself first thing in the morning after you empty your bladder, but before you eat breakfast. -Please call your physician if your weight goes up by more than 2 pounds in 1 day or 5 pounds in 1 week. This can be a sign that you are retaining more fluid than you should be. -Please call your primary care provider's office upon discharge to schedule a hospital follow up within 1 week. -For any concerning signs or symptoms please call 911 or proceed to the nearest emergency department Discharge Orders/Prescriptions Prescriptions: New pantoprazole 40 mg Tablet,Delayed Release (Dr/Ec) 40 mg PO BID 30 Days Qty: 60 0RF lactulose 20 gram/30 mL Solution 30 g PO BID 30 Days Qty: 2700 0RF Continued multivitamin Tablet 1 tab PO DAILY atorvastatin 20 mg Tablet 20 mg PO DAILY allopurinol 100 mg Tablet 100 mg PO DAILY amlodipine 10 mg Tablet 10 mg PO DAILY ferrous sulfate 325 mg (65 mg iron) Tablet 325 mg PO DAILY gabapentin 300 mg Capsule 300 mg PO BID furosemide 20 mg Tablet 20 mg PO BID insulin glargine [Lantus Solostar U-100 Insulin] 100 unit/mL (3 mL) insulin pen SUBCUT Label Comments: inject 30 units daily Changed sucralfate [Carafate] 1 gram Tablet 1 g PO TIDCM 30 Days Qty: 90 0RF metoprolol succinate 100 mg Tablet Extended Release 24 Hr 50 mg PO DAILY 30 Days Qty: 0 0RF Discontinued glimepiride 2 mg Tablet 2 mg PO DAILY famotidine 20 mg Tablet 20 mg PO BID aspirin 81 mg Tablet 81 mg PO DAILY Eliquis 2.5 mg Tablet 2.5 mg PO BID Januvia 100 mg tablet Label Comments: TAKE 1 TABLET BY MOUTH DAILY Referrals / Follow Up: Palmira Cazares MD [Primary Care Provider] - 04/21/23 4:00 pm Disposition Disposition (needs filled in before D/C Order can be placed): Home, Self Care Charges/Coding Visit Charges Inpatient E&M: 45692 Disch Hosp >30min
[2023-04-09 12:06] LABS: Bedside Glucose 190 mg/dL (74-106)
--- NOTE | 2023-04-09 17:34 | PN.GI_ITS ---
Subjective Subjective Patient is tolerating a diet. He received iron transfusions today. Objective Data Objective Data Vital Signs: Vital Signs Temp Pulse Resp BP Pulse Ox O2 Del Method O2 Flow Rate 97.7 F L 73 16 132/77 H 93 Room Air 2 04/09/23 11:05 04/09/23 11:05 04/09/23 11:05 04/09/23 11:05 04/09/23 11:05 04/09/23 11:05 04/09/23 06:29 Oxygen Flow Rate (L/min) 2 Oxygen Delivery Method Room Air Weight: 230 lb 11.2 oz Body Mass Index (BMI) 35.0 Intake & Output: Intake and Output for Last 24 Hours 04/07/23 04/08/23 04/09/23 23:59 23:59 23:59 Intake Total 2242.01 / 2242.01 1850.04 / 2090.04 550 / 550 Output Total 1300 / 1300 500 / 500 350 / 350 Balance 942.01 / 942.01 1350.04 / 1590.04 200 / 200 Lab / Micro Data Result Diagrams: 04/09/23 05:45 04/09/23 05:45 Labs: Laboratory Results - last 24 hr 04/08/23 21:02: POC Glucose 163 H 04/09/23 05:45: WBC 2.6 L, RBC 2.58 L, Hgb 8.7 L, Hct 25.9 L, MCV 100.4 H, MCH 33.7 H, MCHC 33.6, RDW Std Deviation 83.7 H, RDW Coeff of [place] 23.5 H, Plt Count 77 L, MPV 10.5, Immature Gran % (Auto) 1.200 H, Neut % (Auto) 54.8, Lymph % (Auto) 37.1, [place] % (Auto) 4.6, Eos % (Auto) 1.9, Baso % (Auto) 0.4, Absolute Neuts (auto) 1.4 L, Absolute Lymphs (auto) 0.96, Nucleated RBC % 0, Differential Comment SCANNED, Hypochromasia RARE, Anisocytosis 1+, Macrocytosis 1+, Tear Drop Cells RARE 04/09/23 05:45: Sodium 140, Potassium 4.2, Chloride 113 H, Carbon Dioxide 21.0, Anion Gap 6, BUN 30 H, Creatinine 2.04 H, Estim Creat Clear Calc 24.68, Est GFR (MDRD) Af Amer 40 L, Est GFR (MDRD) Non-Af 33 L, BUN/Creatinine Ratio 14.7, Glucose 160 H, Calcium 8.4 L, Total Bilirubin 2.00 H, Direct Bilirubin 0.69 H, AST 36, ALT 37, Alkaline Phosphatase 113, Total Protein 6.4, Albumin 2.9 L, Globulin 3.5, Albumin/Globulin Ratio 0.8 L 04/09/23 06:31: POC Glucose 178 H 04/09/23 09:11: Ammonia 41.0 H 04/09/23 11:12: POC Glucose 190 H Micro: Microbiology 04/06/23 06:00 Stool Stool Occult Blood (SAMMY) - Final Occult Blood Positive Physical Exam Narrative General: Alert, oriented, no apparent distress HEENT: Atraumatic, normocephalic Eyes: Anicteric, normal conjunctiva, extraocular movements grossly intact Neck: Supple Respiratory: Clear to auscultation bilaterally, normal respiratory effort Cardiovascular: Regular rate and rhythm GI: Soft, no rebound, guarding, rigidity, Extremities: Trace to 1+ edema in lower extremities Musculoskeletal: Moving all extremities Neuro: No overt focal neurological deficits Skin: No rashes appreciated Psych: Cooperative Assessment & Plan Assessment/Plan (1) Acute GI bleeding: (2) Chronic lymphocytic leukemia of B-cell type: (3) Stage 3 chronic kidney disease: (4) Presence of stent in coronary artery in patient with coronary artery disease: (5) Cirrhosis: PLAN: Plan 87-year-old gentleman with history of hypertension, COPD, CAD status post st ents, atrial fibrillation, gout with a recent upper GI bleed thought to be secondary to ulcerations in the gastric antrum along with angiodysplasia seen in upper GI tract. This was treated endoscopically. He remains off of blood thinners and is on PPI drip and octreotide. He received transfusion 2 units of packed red blood cells. 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 I will check an ammonia level. He should be on lactulose 30 cc twice a day.. His aspirin and Eliquis are on hold. Alpha-fetoprotein to screen for liver cancer. Ffurther recommendations to follow 04/09: I told the patient's that I would not recommend any anticoagulants due to his age, underlying pancytopenia and likely cirrhosis. I believe he has bone marrow suppression contributing to his pancytopenia. His hemoglobin is stable at 8.2 and I am okay with stopping octreotide and PPI drip and switching him to oral PPI therapy only. Charges/Coding Visit Charges Inpatient E&M: 61748 Subs Hosp L3
[2023-04-10 04:07] LABS: AFP, Tumor Marker < 1.8 ng/mL (0.0-6.4)
== END 2023-04-09 15:40 | disposition home or self-care (01) | DRG 378 ==
LOC: ED 07:24 → PCU 08:04
PROVIDERS: Internal Medicine Gastroenterology; Admitting Provider Internal Medicine; Emergency Provider Emergency Medicine; PCP Family Medicine; Visit Provider Internal Medicine
PROC: 0DJ08ZZ Inspection of Upper Intestinal Tract, Via Natural or Artificial Opening Endoscopic (ICD-10-PCS; CPT 43235; principal; 2023-04-06 11:40)
DX: K31.811 Angiodysplasia of stomach and duodenum with bleeding (principal); D62 Acute posthemorrhagic anemia; D61.818 Other pancytopenia; N17.9 Acute kidney failure, unspecified; C91.10 Chronic lymphocytic leukemia of B-cell type not having achieved remission; E11.22 Type 2 diabetes mellitus with diabetic chronic kidney disease; I48.91 Unspecified atrial fibrillation; J44.9 Chronic obstructive pulmonary disease, unspecified; K74.60 Unspecified cirrhosis of liver; N18.32 Chronic kidney disease, stage 3b; E78.00 Pure hypercholesterolemia, unspecified; I25.10 Atherosclerotic heart disease of native coronary artery without angina pectoris; I12.9 Hypertensive chronic kidney disease with stage 1 through stage 4 chronic kidney disease, or unspecified chronic kidney disease; K76.0 Fatty (change of) liver, not elsewhere classified; K25.4 Chronic or unspecified gastric ulcer with hemorrhage; Z79.01 Long term (current) use of anticoagulants; Z79.899 Other long term (current) drug therapy; Z95.5 Presence of coronary angioplasty implant and graft
CPT/HCPCS: 36415; 76705; 80048; 80053; 82105; 82140; 82248; 82274; 82962; 85018; 85025; 85610; 86850; 86900; 86901; 86920; 86922; 93005; 94668; 97162; 97530; 97802; 99252; 99285; J7120; P9016; A4216; G0463; J2916; J3490

== ENCOUNTER 2023-04-20 12:27 | Emergency (ER) | payer MEDICARE, OTHER, SELFPAY ==
[2023-04-20 12:29] VITALS: BP 151/69; PULSE 94; RESP 18; TEMP 36.5; O2SAT 94; BMI 34.7
--- NOTE | 2023-04-20 13:10 | ED.VIS.GI ---
HPI HPI - GI History of Present Illness Chief Complaint: GI Bleed Informant: patient and family Narrative Narrative: Patient presents for bright red blood per rectum several times starting yesterday. He states yesterday he had twice where there were small amount of bright red blood, and then today a larger amount, but it was just when he wiped and he had a normal nonbloody bowel movement just prior. He denies feeling lightheaded or near syncopal, no abdominal pain, nausea, vomiting, except for when he is on the toilet and is bleeding, he states he has a little bit of fleeting nausea. He was seen here about 2 weeks ago for similar issues, he had an EGD but they do not know what they found, they took him off of his blood thinning medications. He has felt malaised ever since, no different now. [facility] Medical History Anticoagulant long-term use Chronic lymphocytic leukemia of B-cell type Cirrhosis Diabetes Hypercholesterolemia Hypertension Presence of stent in coronary artery in patient with coronary artery disease Stage 3 chronic kidney disease Home Medications allopurinol 100 mg tablet 100 mg PO DAILY 04/06/23 [History Last Taken Unknown] amlodipine 10 mg tablet 10 mg PO DAILY 04/06/23 [History Last Taken Unknown] atorvastatin 20 mg tablet 20 mg PO DAILY 04/06/23 [History Last Taken Unknown] furosemide 20 mg tablet 20 mg PO BID 04/06/23 [History Last Taken Unknown] multivitamin 1 tab PO DAILY 04/06/23 [History Last Taken Unknown] gabapentin 300 mg capsule 300 mg PO BID 7 days #14 caps 04/09/23 [Rx Last Taken Unknown] lactulose 20 gram/30 mL oral solution 30 g (45 mL) PO BID 30 days #2,700 mL 04/09/23 [Rx Last Taken Unknown] pantoprazole 40 mg tablet,delayed release 40 mg PO BID 30 days #60 tabs 04/09/23 [Rx Last Taken Unknown] sucralfate 1 gram tablet (Carafate) 1 g PO TIDCM 30 days #90 tabs 04/09/23 [Rx Last Taken Unknown] ascorbic acid (vitamin C) 250 mg tablet (Vitamin C) 250 mg PO BID #60 tabs 04/20/23 [Rx Last Taken Unknown] ferrous sulfate 325 mg (65 mg iron) tablet 325 mg PO BID #1 TAB 04/20/23 [Rx Last Taken Unknown] insulin glargine 100 unit/mL (3 mL) subcutaneous pen (Lantus Solostar U-100 Insulin) 22 unit (0.22 mL) subcut QHS Check with primary doctor #15 mL 04/20/23 [Rx Last Taken Unknown] metoprolol tartrate 50 mg tablet 50 mg PO BID #60 tabs 04/20/23 [Rx Last Taken Unknown] Allergy/AdvReac Type Severity Reaction Status Date / Time metformin AdvReac Diarrhea Verified 04/20/23 12:31 Surgical History History of cholecystectomy History of hernia surgery Social History household members: spouse Smoking Status: Never smoker substance use type: does not use ROS ROS ED Constitutional Constitutional ED: Reports malaise; Denies chills or fever(s) Eyes Eyes: Denies change in vision or diplopia ENT ENT ED: Denies rhinorrhea or sore throat Cardiovascular Cardiovascular: Reports leg edema; Denies chest pain or palpitations Respiratory/Chest Respiratory/Chest: Denies cough or dyspnea Gastrointestinal Gastrointestinal: Reports hematochezia; Denies abdominal pain, diarrhea, melena, nausea or vomiting Genitourinary Genitourinary ED: Denies dysuria or hematuria Musculoskeletal Musculoskeletal: Denies back pain or neck pain Integumentary Denies abscess or rash Neurologic Neurologic: Denies headache(s), paresthesias or weakness Psychiatric Psychiatric: Denies anxiety or suicidal thoughts EXAM Physical Exam Const Vital Signs: 04/20/23 12:29 Temperature 97.7 F L Temperature Source Temporal Pulse Rate 94 Respiratory Rate 18 Blood Pressure 151/69 H Blood Pressure Mean 96 Pulse Ox 94 Oxygen Delivery Method Room Air Positive well nourished and well developed General Appearance ED: well developed and NAD HEENT Reports moist mucous membranes normocephalic and atraumatic Eyes PERRL and EOMs intact bilaterally Neck full ROM and supple Resp normal respiratory effort and clear to auscultation bilaterally Cardio regular rate, regular rhythm and no murmurs GI non-tender and non-distended GI Narrative: Rectal exam: Nontender, no obvious significant hemorrhoids, no active bleeding, trace amount of blood on the patient's diaper but trace amount of yellow-brown nonbloody stool on CINDY. Auscultation: normoactive bowel sounds Palpation: soft Back/Spine no CVA tenderness General Back: other FROM Extremity normal to inspection General Extremety ED: Yes edema; Negative for pulses abnormal or tenderness General Extremity: edema bilateral lower extremity Details: moderate; Negative for pulses abnormal Neuro oriented x3, CN's II-XII intact bilaterally and no sensory deficits noted Sensorium / Orientation: awake and alert Motor Exam: strength 5/5 throughout Skin no rashes or lesions noted and no wounds MDM MDM MDM Narrative Medical decision making narrative: I reviewed the patient's EGD from 04/06: 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 GI also suspected that the patient has cirrhosis, his ammonia level was a little high, and he was placed on lactulose in addition to oral PPI. Clinically patient is not orthostatic. His hemoglobin is 8.9 but this is a little higher than it was when he was last checked. He has chronic renal insufficiency and the rest of his labs are similar to what they were. He had no further bouts of bowel movements or bleeding in the emergency department. I discussed with Dr. Kirby who recently saw him and scoped him. Based on this available information we both agree that this is likely from a distal colonic source and he is having no emergent bleeding does not need to be readmitted to the hospital at this time. He recommends making sure that he is on iron sulfate twice daily, which he already is, and adding twice daily vitamin C to take with that, changing his metoprolol succinate 50 mg daily to metoprolol tartrate 50 mg twice daily, and repeat hemogram in 3 days. The patient is asking me if he can increase his Lantus from 10 units nightly back up to 22 where he was at before he was admitted to the hospital. Looking at his list he is on no other diabetic medications so I think that is reasonable since he is eating and drinking normally. History & Record Review Additional record(s) reviewed:: Prior inpatient record and Prior labs Lab Data Attestation: I reviewed the patient's lab results. Labs: Laboratory Results - last 24 hr 04/20/23 04/20/23 04/20/23 12:55 12:55 12:55 WBC 2.0 L RBC 2.64 L Hgb 8.9 L Hct 27.2 L MCV 103.0 H MCH 33.7 H MCHC 32.7 RDW Std Deviation 81.1 H RDW Coeff of Beto 22.0 H Plt Count 91 L MPV 11.3 Immature Gran % (Auto) 1.000 H Neut % (Auto) 61.5 Lymph % (Auto) 28.7 Posey % (Auto) 6.2 Eos % (Auto) 2.1 Baso % (Auto) 0.5 Absolute Neuts (auto) 1.2 L Absolute Lymphs (auto) 0.56 L Nucleated RBC % 0 Differential Comment COMMENT Diff Path Review May foll Platelet Estimate MOD DEC Anisocytosis 2+ Sodium 140 Potassium 3.9 Chloride 105 Carbon Dioxide 26.0 Anion Gap 9 BUN 23 H Creatinine 2.18 H Estim Creat Clear Calc 23.10 Est GFR (MDRD) Af Amer 37 L Est GFR (MDRD) Non-Af 31 L BUN/Creatinine Ratio 10.6 Glucose 321 H Calcium 9.6 Blood Type O NEGATIVE Antibody Screen NEGATIVE Discharge Plan Triage Chief Complaint: GI Bleed ED Provider: Kirk Foley Dx/Rx/DC Orders Clinical Impression: Painless rectal bleeding, Pancytopenia, Hyperglycemia due to type 2 diabetes mellitus Instructions: ED Lower GI Bleeding (Stable) Prescriptions: New metoprolol tartrate 50 mg tablet 50 mg PO BID Qty: 60 0RF ascorbic acid (vitamin C) [Vitamin C] 250 mg tablet 250 mg PO BID Qty: 60 0RF Continued multivitamin Tablet 1 tab PO DAILY atorvastatin 20 mg Tablet 20 mg PO DAILY allopurinol 100 mg Tablet 100 mg PO DAILY amlodipine 10 mg Tablet 10 mg PO DAILY furosemide 20 mg Tablet 20 mg PO BID sucralfate [Carafate] 1 gram Tablet 1 g PO TIDCM 30 Days Qty: 90 0RF pantoprazole 40 mg Tablet,Delayed Release (Dr/Ec) 40 mg PO BID 30 Days Qty: 60 0RF lactulose 20 gram/30 mL Solution 30 g PO BID 30 Days Qty: 2700 0RF gabapentin 300 mg Capsule 300 mg PO BID 7 Days Qty: 14 0RF Rx Instructions: Listed on home med list, doesn't seem to have filled recently. Short course sent until this can be discussed with PCP Changed ferrous sulfate 325 mg (65 mg iron) Tablet 325 mg PO BID Qty: 1 0RF insulin glargine [Lantus Solostar U-100 Insulin] 100 unit/mL (3 mL) insulin pen 22 unit SUBCUT QHS Qty: 15 0RF Label Comments: inject 30 units daily Discontinued metoprolol succinate 100 mg Tablet Extended Release 24 Hr 50 mg PO DAILY 30 Days Qty: 0 0RF Other Ambulatory Orders: CBC-Complete Blood Cnt No Diff (Routine) Timeframe: [id number] Facility: [facility] - Location: Laboratory Ordered By: Dr. Kirk Foley Primary Care Provider: Palmira Cazares Referrals: Palmira Cazares MD [Primary Care Provider] - Bert Kirby DO [Med Staff - Active Staff] - (As previously scheduled) Disposition Disposition: Home, Self Care
[2023-04-20 13:23] LABS: Absolute Lymphocyte Count 0.56 X10^3/uL (0.83-4.51); Absolute Neutrophil Count 1.2 X10^3/uL (2.0-7.7); Basophil# 0.01 X10^3/uL; Basophil% 0.5 % (0-1); Eosinophil# 0.04 X10^3/uL; Eosinophils% 2.1 % (0-5); Hematocrit 27.2 % (40-54); Hemoglobin 8.9 g/dL (13.0-16.5); Lymphocyte # 0.56 X10^3/ul (0.83-4.51); Lymphocyte % 28.7 % (19-41); Mean Corp Hgb Conc 32.7 g/dL (32-36); Mean Corpuscular Hgb 33.7 pg (27.0-32.0); Mean Platelet Vol. 11.3 fl (6.2-12.0); Monocyte# 0.12 X10^3/uL; Monocyte% 6.2 % (0-10); NRBC Flagged by Analyzer 0 % (0-5); Neutrophil % 61.5 % (47-70); POSITIVE COUNT YES; POSITIVE DIFFERENTIAL YES; POSITIVE MORPHOLOGY YES; Platelet Count 91 K/mm3 (150-450); RBC Distribution Width SD 81.1 fl (35.1-43.9); Red Blood Count 2.64 M/mm3 (4.6-6.2)
[2023-04-20 13:25] LABS: Differential Indicated SCAN CRITERIA MET
[2023-04-20 13:31] LABS: Anion Gap 9 (5-15); BUN 23 mg/dL (7-18); BUN/Creat Ratio 10.6 RATIO (10-20); Calcium,Total 9.6 mg/dL (8.5-10.1); Chloride 105 mmol/L (98-107); Creatinine, Serum 2.18 mg/dL (0.70-1.30); EST Glomerular Filtration Rate 31 mL/min (>60); Est Glom Filt Rate - Afr Amer 37 mL/min (>60); Glucose 321 mg/dL (74-106); Potassium 3.9 mmol/L (3.5-5.1); Sodium Level 140 mmol/L (136-145)
[2023-04-20 13:50] LABS: Anisocytosis 2+; Platelet Estimate MOD DEC (ADEQ)
[2023-04-20 15:18] VITALS: BP 136/76; PULSE 82; RESP 16; O2SAT 92
[2023-04-21 12:19] LABS: Pathologist Review Reviewed
== END 2023-04-20 15:22 | disposition home or self-care (01) ==
PROVIDERS: Emergency Provider Emergency Medicine; PCP Family Medicine; Visit Provider Emergency Medicine
DX: K62.5 Hemorrhage of anus and rectum (principal); D61.818 Other pancytopenia; E11.65 Type 2 diabetes mellitus with hyperglycemia; E11.22 Type 2 diabetes mellitus with diabetic chronic kidney disease; Z79.4 Long term (current) use of insulin; N18.30 Chronic kidney disease, stage 3 unspecified; I25.10 Atherosclerotic heart disease of native coronary artery without angina pectoris; I12.9 Hypertensive chronic kidney disease with stage 1 through stage 4 chronic kidney disease, or unspecified chronic kidney disease; E78.00 Pure hypercholesterolemia, unspecified; Z95.5 Presence of coronary angioplasty implant and graft; Z90.49 Acquired absence of other specified parts of digestive tract; Z79.01 Long term (current) use of anticoagulants; Z79.899 Other long term (current) drug therapy
CPT/HCPCS: 80048; 85025; 86850; 86900; 86901; 99283; A4216

== ENCOUNTER → 2023-04-23 | Outpatient (CLI) | payer MEDICARE, OTHER, SELFPAY ==
[2023-04-23 09:40] LABS: Hematocrit 28.5 % (40-54); Hemoglobin 9.2 g/dL (13.0-16.5); Mean Corp Hgb Conc 32.3 g/dL (32-36); Mean Corpuscular Hgb 33.8 pg (27.0-32.0); Mean Corpuscular Volume 104.8 fL (80-94); Mean Platelet Vol. 10.9 fl (6.2-12.0); POSITIVE COUNT YES; POSITIVE MORPHOLOGY YES; Platelet Count 90 K/mm3 (150-450); RBC Distribution Width CV 22.1 % (11.6-14.6); RBC Distribution Width SD 83.2 fl (35.1-43.9); Red Blood Count 2.72 M/mm3 (4.6-6.2); White Blood Count 2.3 K/mm3 (4.4-11.0)
[2023-04-23 09:44] LABS: Scan Indicated on CBC? Y/N YES- FLAGS NOTED
== END | disposition home or self-care (01) ==
LOC: LAB 08:17
PROVIDERS: PCP Family Medicine; Referring Provider Emergency Medicine; Visit Provider Emergency Medicine
DX: K62.5 Hemorrhage of anus and rectum (principal)
CPT/HCPCS: 36415; 85027

== ENCOUNTER → 2023-10-16 | Outpatient (CLI) | payer MEDICARE, OTHER, SELFPAY ==
--- NOTE | 2023-10-16 08:36 | US_ITS ---
STUDY: ABDOMINAL ULTRASOUND - RIGHT UPPER QUADRANT; ELASTOGRAPHY REASON FOR VISIT: Male, 88 years old. Cirrhosis. TECHNIQUE: Ultrasound evaluation of the right upper quadrant was performed with real-time and static brenner-scale imaging. Point quantification shear wave elastography was performed (NAFLD). TECHNICAL QUALITY: Adequate. COMPARISON: Comparison is made with prior study dated April 08, 2023. FINDINGS: Liver: The liver is enlarged and measures 19.9 cm. There is increased echogenicity consistent with fatty infiltration. The bile ducts are within normal limits. There is hepatic color flow. The direction of portal flow is hepatopetal. There is no demonstrated mass lesion. Median liver stiffness measured 12.6 kPa. Gallbladder: The patient is status post cholecystectomy. Common Bile Duct (C.B.D.): The common bile duct measures 5.9 mm. Pancreas: There is increased echogenicity of the pancreas. There is no demonstrated pancreatic mass or cyst. Right Kidney: Normal size of the right kidney. The right kidney measures 14 cm x 6.1 cm x 6.4 cm. Normal renal cortex. The right cortex measures 1.7 cm. Multiple cysts are seen. The largest measures 8.3 cm x 7.4 cm x 6.1 cm. This is in the lower pole. There is no right hydronephrosis. US/ABD Limited w/ Elastography IMPRESSION: 1. 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 Electronically Signed: Lobo Eden MD at 11:33 EST ,
== END | disposition home or self-care (01) ==
LOC: US 08:35
PROVIDERS: PCP Family Medicine; Referring Provider Internal Medicine; Visit Provider Internal Medicine
DX: K74.60 Unspecified cirrhosis of liver (principal); E11.22 Type 2 diabetes mellitus with diabetic chronic kidney disease; N18.30 Chronic kidney disease, stage 3 unspecified; R18.8 Other ascites
CPT/HCPCS: 76705; 76981

== ENCOUNTER → 2023-11-30 | Outpatient (CLI) | payer MEDICARE, OTHER, SELFPAY ==
[2023-11-30 08:20] LABS: Erythrocyte Sedimentation Rate 10 mm/hr (0-20)
[2023-11-30 08:23] LABS: Hemoglobin A1c 10.3 % (3.8-5.6)
[2023-11-30 08:26] LABS: Absolute Lymphocyte Count 0.79 X10^3/uL (0.83-4.51); Absolute Neutrophil Count 0.5 X10^3/uL (2.0-7.7); Basophil# 0.01 X10^3/uL; Basophil% 0.7 % (0-1); Eosinophil# 0.04 X10^3/uL; Eosinophils% 2.8 % (0-5); Hematocrit 24.1 % (40-54); Lymphocyte # 0.79 X10^3/ul (0.83-4.51); Lymphocyte % 55.6 % (19-41); Mean Corp Hgb Conc 33.2 g/dL (32-36); Mean Corpuscular Hgb 35.4 pg (27.0-32.0); Mean Corpuscular Volume 106.6 fL (80-94); Mean Platelet Vol. 12.3 fl (6.2-12.0); Monocyte# 0.08 X10^3/uL; Monocyte% 5.6 % (0-10); NRBC Flagged by Analyzer 2.1 % (0-5); Neutrophil # 0.49 X10^3/uL (2.7-7.7); Neutrophil % 34.6 % (47-70); POSITIVE COUNT YES; POSITIVE DIFFERENTIAL YES; POSITIVE MORPHOLOGY YES; Platelet Count 79 K/mm3 (150-450); RBC Distribution Width CV 18.6 % (11.6-14.6); RBC Distribution Width SD 71.1 fl (35.1-43.9); Red Blood Count 2.26 M/mm3 (4.6-6.2)
[2023-11-30 08:43] LABS: Differential Indicated SCAN CRITERIA MET
[2023-11-30 08:44] LABS: ALB/GLOB Ratio 0.9 RATIO (0.9-2.4); AST(SGOT) 31 U/L (15-37); Alanine Aminotransfer ALT/SGPT 32 U/L (16-61); Albumin, Serum 3.2 g/dL (3.2-5.0); Alkaline Phosphatase 141 U/L (45-117); Anion Gap 4 (5-15); BUN 46 mg/dL (7-18); BUN/Creat Ratio 17.2 RATIO (10-20); CRP < 2.90 mg/L (0.0-3.0); Calcium,Total 8.9 mg/dL (8.5-10.1); Chloride 111 mmol/L (98-107); Cholesterol 85 mg/dL (200); Creatinine, Serum 2.68 mg/dL (0.70-1.30); EST Glomerular Filtration Rate 24 mL/min (>60); Est Glom Filt Rate - Afr Amer 29 mL/min (>60); Ferritin 348 ng/mL (26-388); Globulin 3.6 g/dL (2.2-4.2); Glucose 248 mg/dL (74-106); High Density Lipoprotein 36 mg/dL; Iron Binding Capacity,Total 283 ug/dL (250-450); LDH 234 U/L (87-241); Magnesium 1.5 mg/dL (1.6-2.6); Phosphorus 2.4 mg/dL (2.5-4.9); Potassium 4.1 mmol/L (3.5-5.1); Protein, Total 6.8 g/dL (6.4-8.2); Sodium Level 142 mmol/L (136-145); Triglycerides 108 mg/dL; Very Low Density Lipoprotein 22 mg/dL (5-40)
[2023-11-30 08:51] LABS: International Normalized Ratio 1.1
[2023-11-30 08:54] LABS: White Blood Count 1.4 K/mm3 (4.4-11.0)
[2023-11-30 08:55] LABS: HIV - WCH Non-Reactive (Nonreactive); Vitamin D,25 Hydroxy 52.2 ng/mL
[2023-11-30 08:57] LABS: Anisocytosis 1+
[2023-11-30 13:13] LABS: Pathologist Review Reviewed
[2023-12-01 14:09] LABS: ANTINUCLEAR ANTIBODIES DIRECT Negative (Negative); Anti-Mitochondrial AB <20.0 Units (0.0-20.0)
[2023-12-05 02:08] LABS: AFP, Tumor Marker < 1.8 ng/mL (0.0-6.4); Angiotensin Convert Enzyme 46 U/L (14-82); Anti-Smooth Muscle ABS 16 Units (0-19); Ceruloplasmin 24.7 mg/dL (16.0-31.0); Copper, Serum or Plasma 131 ug/dL (69-132); Cytoplasmic Ab (C-ANCA) <1:20 titer (Neg:<1:20); HEPATITIS B SURFACE AG Negative (Negative); Haptoglobin 18 mg/dL (38-329); Hep C Antibodies Non Reactive (Non Reactive); Hepatitis A IgM Antibody Negative (Negative); Hepatitis B Core AB IgM Negative (Negative); Perinuclear Ab (P-ANCA) <1:20 titer (Neg:<1:20); Transferrin 241 mg/dL (149-313)
== END | disposition home or self-care (01) ==
LOC: LAB 07:28
PROVIDERS: PCP Family Medicine; Referring Provider Internal Medicine; Visit Provider Internal Medicine
DX: K74.60 Unspecified cirrhosis of liver (principal); C91.10 Chronic lymphocytic leukemia of B-cell type not having achieved remission; E11.22 Type 2 diabetes mellitus with diabetic chronic kidney disease; N18.30 Chronic kidney disease, stage 3 unspecified
CPT/HCPCS: 36415; 80053; 80061; 80074; 82105; 82140; 82164; 82306; 82390; 82525; 82728; 83010; 83036; 83516; 83550; 83615; 83735; 84100; 84466; 85025; 85610; 85652; 86038; 86140; 86225; 86235; 86256; 86703

== ENCOUNTER → 2024-02-03 | Outpatient (CLI) | payer MEDICARE, OTHER, SELFPAY ==
--- NOTE | 2024-02-03 11:00 | ECHOD_ITS ---
Reason For Study: CAD/ASHD Procedure This was a 2D Doppler, Color Flow transthoracic echocardiogram. Exam performed in department. Left Ventricle Normal LV size. Left ventricular systolic function is normal. The estimated ejection fraction is 55 %. Stage 1 diastolic dysfunction. No regional wall motion abnormalities noted. Right Ventricle Normal RV size. Normal systolic function. Atria The left atrium is mildly enlarged. Normal right atrium. Mitral Valve Normal mitral valve. Tricuspid Valve Normal tricuspid valve. Mild to moderate (1-2+) tricuspid valve insufficiency. Pulmonary artery systolic pressure is 50 mmHg. Aortic Valve Trisinus/trileaflet aortic valve. Mild (1+) aortic valve insufficiency. Pulmonic Valve Normal pulmonic valve. Great Vessels Normal aortic root. The pulmonary artery is normal size. Normal inferior vena cava. Pericardium/Pleural No pericardial effusion. MMode/2D Measurements & Calculations LVIDd: 5.2 cm IVSd: 1.2 cm Ao root diam: 3.4 cm LVIDs: 3.7 cm LVPWd: 1.1 cm RVDd: 4.0 cm FS: 29.7 % LAV(MOD-bp): 84.4 ml LVAd ap4: 35.9 cm2 SV(MOD-sp4): 71.6 ml LAV(MOD-bp) Indexed: 38.9 ml/m2 LVLd ap4: 8.6 cm LAV(MOD-sp2): 80.8 ml EDV(MOD-sp4): 125.9 ml LAV(MOD-sp4): 80.9 ml EDV(sp4-el): 127.8 ml LVAs ap4: 21.7 cm2 LVLs ap4: 7.3 cm ESV(MOD-sp4): 54.2 ml ESV(sp4-el): 55.0 ml EF(MOD-sp4): 56.9 % EF(sp4-el): 57.0 % SV(sp4-el): 72.8 ml LA A4 area: 26.2 cm2 LA dimension(2D): 4.2 cm RA A4 area: 28.0 cm2 TAPSE: 2.6 cm Time Measurements MV dec time: 0.24 sec Doppler Measurements & Calculations MV E max benny: 98.9 cm/sec Lat Peak E' Benny: 8.3 cm/sec Med Peak E' Benny: 7.9 cm/sec MV A max benny: 104.2 cm/sec E/E' lat: 11.9 E/E' med: 12.5 MV E/A: 0.95 MV V2 max: 116.3 cm/sec MV P1/2t max benny: 114.8 cm/sec Ao V2 max: 153.2 cm/sec MV max P.4 mmHg MV P1/2t: 71.9 msec Ao max P.4 mmHg MV V2 mean: 57.6 cm/sec Ao V2 mean: 103.9 cm/sec MV mean P.7 mmHg MV dec slope: 467.8 cm/sec2 Ao mean P.0 mmHg MV V2 VTI: 33.6 cm MVA(P1/2t): 3.1 cm2 Ao V2 VTI: 35.4 cm AV (velocity ratio): 0.70 AI max benny: 382.7 cm/sec LV V1 max: 104.4 cm/sec PA V2 max: 78.5 cm/sec AI max P.6 mmHg LV V1 max P.4 mmHg PA V2 mean: 53.0 cm/sec LV V1 mean P.7 mmHg AI dec slope: 269.7 cm/sec2 LV V1 mean: 79.4 cm/sec AI P1/2t: 415.5 msec LV V1 VTI: 24.8 cm TR max benny: 345.4 cm/sec TR max P.7 mmHg ECHO/Echo Complete Interpretation Summary Normal LV size. Left ventricular systolic function is normal. The estimated ejection fraction is 55 %. The left atrium is mildly enlarged. Stage 1 diastolic dysfunction. Mild (1+) aortic valve insufficiency. Pulmonary artery systolic pressure is 50 mmHg. Ordering Physician: Grey aNva Referring Physician: Palmira Cazares Performed By: Florinda Ray RDCS, RVT
== END | disposition home or self-care (01) ==
PROVIDERS: PCP Family Medicine; Visit Provider Internal Medicine
DX: I25.10 Atherosclerotic heart disease of native coronary artery without angina pectoris (principal)
CPT/HCPCS: 93306

== ENCOUNTER → 2024-04-06 | Outpatient (CLI) | payer MEDICARE, OTHER, SELFPAY ==
[2024-04-06 16:27] LABS: Absolute Lymphocyte Count 0.86 X10^3/uL (0.83-4.51); Absolute Neutrophil Count 0.5 X10^3/uL (2.0-7.7); Eosinophil# 0.07 X10^3/uL; Eosinophils% 4.5 % (0-5); Hematocrit 24.7 % (40-54); Hemoglobin 7.8 g/dL (13.0-16.5); Lymphocyte # 0.86 X10^3/ul (0.83-4.51); Lymphocyte % 55.5 % (19-41); Mean Corp Hgb Conc 31.6 g/dL (32-36); Mean Corpuscular Hgb 33.8 pg (27.0-32.0); Mean Corpuscular Volume 106.9 fL (80-94); Mean Platelet Vol. 11.4 fl (6.2-12.0); Monocyte# 0.09 X10^3/uL; Monocyte% 5.8 % (0-10); NRBC Flagged by Analyzer 1.3 % (0-5); Neutrophil % 32.3 % (47-70); POSITIVE COUNT YES; POSITIVE DIFFERENTIAL YES; POSITIVE MORPHOLOGY YES; Platelet Count 75 K/mm3 (150-450); RBC Distribution Width CV 20.1 % (11.6-14.6); RBC Distribution Width SD 78.3 fl (35.1-43.9); Red Blood Count 2.31 M/mm3 (4.6-6.2); White Blood Count 1.6 K/mm3 (4.4-11.0)
[2024-04-06 16:34] LABS: Differential Indicated SCAN CRITERIA MET
[2024-04-06 16:37] LABS: International Normalized Ratio 1.1
[2024-04-06 17:10] LABS: AST(SGOT) 29 U/L (15-37); Alanine Aminotransfer ALT/SGPT 29 U/L (16-61); Albumin, Serum 3.5 g/dL (3.2-5.0); Alkaline Phosphatase 111 U/L (45-117); Anion Gap 9 (5-15); BUN 49 mg/dL (7-18); BUN/Creat Ratio 18.9 RATIO (10-20); CRP < 2.90 mg/L (0.0-3.0); Calcium,Total 9.3 mg/dL (8.5-10.1); Chloride 106 mmol/L (98-107); Creatinine, Serum 2.59 mg/dL (0.70-1.30); EST Glomerular Filtration Rate 25 mL/min (>60); Est Glom Filt Rate - Afr Amer 30 mL/min (>60); Globulin 3.5 g/dL (2.2-4.2); Glucose 152 mg/dL (74-106); Potassium 4.7 mmol/L (3.5-5.1); Sodium Level 138 mmol/L (136-145)
[2024-04-06 17:11] LABS: Anisocytosis 2+; Burr Cells RARE; Crenated RBC 1+; Differential Comment SCANNED; Hypochromasia 2+; Ovalocyte 1+; Polychromasia RARE
== END | disposition home or self-care (01) ==
PROVIDERS: PCP Family Medicine; Referring Provider Internal Medicine; Visit Provider Internal Medicine
DX: C91.10 Chronic lymphocytic leukemia of B-cell type not having achieved remission (principal); N18.4 Chronic kidney disease, stage 4 (severe); K74.60 Unspecified cirrhosis of liver; E11.22 Type 2 diabetes mellitus with diabetic chronic kidney disease
CPT/HCPCS: 36415; 80053; 85025; 85610; 86140

== ENCOUNTER → 2024-07-05 | Outpatient (CLI) | payer MEDICARE, OTHER, SELFPAY ==
[2024-07-05 15:41] LABS: Absolute Lymphocyte Count 0.88 X10^3/uL (0.83-4.51); Absolute Neutrophil Count 0.6 X10^3/uL (2.0-7.7); Eosinophil# 0.05 X10^3/uL; Eosinophils% 3.1 % (0-5); Hematocrit 25.9 % (40-54); Hemoglobin 8.4 g/dL (13.0-16.5); Lymphocyte # 0.88 X10^3/ul (0.83-4.51); Lymphocyte % 54.3 % (19-41); Mean Corp Hgb Conc 32.4 g/dL (32-36); Mean Corpuscular Hgb 34.3 pg (27.0-32.0); Mean Corpuscular Volume 105.7 fL (80-94); Mean Platelet Vol. 11.1 fl (6.2-12.0); Monocyte# 0.09 X10^3/uL; Monocyte% 5.6 % (0-10); NRBC Flagged by Analyzer 0 % (0-5); Neutrophil # 0.59 X10^3/uL (2.7-7.7); Neutrophil % 36.4 % (47-70); POSITIVE COUNT YES; POSITIVE DIFFERENTIAL YES; POSITIVE MORPHOLOGY YES; Platelet Count 70 K/mm3 (150-450); RBC Distribution Width CV 20.2 % (11.6-14.6); Red Blood Count 2.45 M/mm3 (4.6-6.2); White Blood Count 1.6 K/mm3 (4.4-11.0)
[2024-07-05 15:49] LABS: Differential Indicated SCAN CRITERIA MET
[2024-07-05 15:53] LABS: Prothrombin Time (Protime)PT. 13.5 SECONDS (11.7-14.9)
[2024-07-05 16:30] LABS: AST(SGOT) 31 U/L (15-37); Alanine Aminotransfer ALT/SGPT 26 U/L (16-61); Albumin, Serum 3.5 g/dL (3.2-5.0); Alkaline Phosphatase 111 U/L (45-117); Anion Gap 7 (5-15); BUN 59 mg/dL (7-18); BUN/Creat Ratio 20.1 RATIO (10-20); CRP < 2.90 mg/L (0.0-3.0); Calcium,Total 9.3 mg/dL (8.5-10.1); Chloride 106 mmol/L (98-107); Creatinine, Serum 2.93 mg/dL (0.70-1.30); EST Glomerular Filtration Rate 22 mL/min (>60); Est Glom Filt Rate - Afr Amer 26 mL/min (>60); Globulin 3.5 g/dL (2.2-4.2); Glucose 254 mg/dL (74-106); Potassium 4.9 mmol/L (3.5-5.1); Sodium Level 138 mmol/L (136-145)
[2024-07-05 16:31] LABS: Hemoglobin A1c 8.8 % (3.8-5.6)
[2024-07-05 16:38] LABS: Anisocytosis 1+; Platelet Estimate MKD DEC (ADEQ)
[2024-07-07 08:52] LABS: Pathologist Review Reviewed
[2024-07-07 12:09] LABS: AFP, Tumor Marker < 1.8 ng/mL (0.0-6.4)
== END | disposition home or self-care (01) ==
LOC: LAB 15:09
PROVIDERS: PCP Family Medicine; Referring Provider Internal Medicine; Visit Provider Internal Medicine
DX: K74.60 Unspecified cirrhosis of liver (principal); N18.4 Chronic kidney disease, stage 4 (severe); E11.22 Type 2 diabetes mellitus with diabetic chronic kidney disease; D63.8 Anemia in other chronic diseases classified elsewhere; R18.8 Other ascites
CPT/HCPCS: 36415; 80053; 82105; 82140; 83036; 85025; 85610; 86140

== ENCOUNTER → 2024-07-15 | Outpatient (CLI) | payer MEDICARE, OTHER, SELFPAY ==
--- NOTE | 2024-07-15 07:26 | US_ITS ---
STUDY: ABDOMINAL ULTRASOUND - RIGHT UPPER QUADRANT; ELASTOGRAPHY REASON FOR VISIT: Male, 88 years old. SCHNEIDER cirrhosis. TECHNIQUE: Ultrasound evaluation of the right upper quadrant was performed with real-time and static brenner-scale imaging. Point quantification shear wave elastography was performed ([place]). TECHNICAL QUALITY: Adequate. COMPARISON: None. FINDINGS: Liver: The liver measures 16.4 cm. There is increased echogenicity consistent with fatty infiltration. The bile ducts are within normal limits. There is hepatic color flow. The direction of portal flow is hepatopetal. There is no demonstrated mass lesion. Median liver stiffness measured 13.5 kPa. Gallbladder: The patient is status post cholecystectomy. Common Bile Duct (C.B.D.): The common bile duct measures 6.8 mm. Pancreas: There is increased echogenicity of the pancreas. There is no demonstrated pancreatic mass or cyst. Right Kidney: Normal size of the right kidney. The right kidney measures 13 cm x 6.7 cm x 6.6 cm. Normal renal cortex. The right cortex measures 1.4 cm. Multiple renal cysts are seen. The largest cyst measures 8.3 cm x 7.1 cm x 5.9 cm. This is in the lower pole. There is no right hydronephrosis. US/ABD Limited w/ Elastography IMPRESSION: 1. 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 Electronically Signed: Lobo Eden MD at 10:28 EDT ,
== END | disposition home or self-care (01) ==
LOC: US 07:23
PROVIDERS: PCP Family Medicine; Referring Provider Internal Medicine; Visit Provider Internal Medicine
DX: K74.60 Unspecified cirrhosis of liver (principal); N18.4 Chronic kidney disease, stage 4 (severe); R18.8 Other ascites
CPT/HCPCS: 76705; 76981

== ENCOUNTER 2024-10-28 07:40 | Emergency (ER) | payer MEDICARE, OTHER, SELFPAY ==
[2024-10-28 07:41] VITALS: BP 135/63; PULSE 72; RESP 18; TEMP 36.6; O2SAT 95
[2024-10-28 07:44] VITALS: BP 135/63; PULSE 72; RESP 18; TEMP 36.6; O2SAT 95; BMI 35.4
--- NOTE | 2024-10-28 07:48 | EX.ED.DYSGE1 ---
HPI History of Present Illness Chief Complaint: Cellulitis Informant: patient Onset/Context/Timing Onset: Weeks Context: Gradual Onset Timing: Continuous Quality: Redness Location: Anterior left lower leg Worsened by: Nothing Relieved by: Nothing Narrative Narrative: Patient presents with redness to his left lower leg that has been constant for the past couple of weeks. Patient states he has been on antibiotics for this which has not helped. Patient denies any fevers or chills. Patient denies any discharge or drainage. Patient denies any trauma or injury. Patient states the redness is localized to the anterior aspect of his left lower leg. Patient states nothing makes it worse and nothing makes it better. [facility] Medical History (Updated 10/28/24 @ 09:[address] Bubba Del Cid, DO) Coronary artery disease Cirrhosis Anticoagulant long-term use Chronic lymphocytic leukemia of B-cell type Presence of stent in coronary artery in patient with coronary artery disease Hypercholesterolemia Diabetes Hypertension Home Medications ?Medication ?Instructions ?Recorded ?Last Taken ?Type allopurinol 100 mg tablet 100 mg PO DAILY 04/06/23 10/27/24 History multivitamin 1 tab PO DAILY 04/06/23 Unknown History gabapentin 300 mg capsule 300 mg PO BID 7 days #14 caps 04/09/23 10/27/24 Rx ascorbic acid (vitamin C) 250 mg 250 mg PO BID #60 tabs 04/20/23 Unknown Rx tablet (Vitamin C) insulin glargine 100 unit/mL (3 22 unit (0.22 mL) subcut QHS Check 04/20/23 Unknown Rx mL) subcutaneous pen (Lantus with primary doctor #15 mL Solostar U-100 Insulin) metoprolol tartrate 50 mg tablet 50 mg PO BID #60 tabs 04/20/23 10/27/24 Rx furosemide 20 mg tablet 40 mg PO DAILY 09/29/23 10/27/24 History nitroglycerin 0.4 mg sublingual 0.4 mg sublingual ONCE 09/29/23 Unknown History tablet primidone 50 mg tablet 50 mg PO ONCE 09/29/23 10/27/24 History atorvastatin 40 mg tablet 40 mg PO DAILY 01/01/24 10/27/24 History magnesium chloride 64 mg 64 mg PO BID 1 month #60 tabs 01/01/24 Unknown Rx (magnesium chloride) tablet,delayed release pantoprazole 40 mg tablet,delayed 40 mg PO DAILY 30 days #30 tabs 01/01/24 10/27/24 Rx release lactulose 20 gram/30 mL oral 30 g (45 mL) PO BID 30 days #2,700 04/12/24 10/27/24 Rx solution mL rifaximin 550 mg tablet (Xifaxan) 550 mg PO BID 30 days #60 tabs 04/12/24 Unknown Rx spironolactone 25 mg tablet 37.5 mg (1.5 x 25 mg) PO DAILY 1 04/12/24 10/27/24 Rx month #45 tabs ferrous sulfate 325 mg (65 mg 325 mg PO Q OTHER DAY 1 month #30 07/12/24 Unknown Rx iron) tablet tabs Allergy/AdvReac Type Severity Reaction Status Date / Time metformin AdvReac Diarrhea Verified 10/28/24 07:54 Surgical History History of hernia surgery History of cholecystectomy Social History household members: spouse Smoking Status: Never smoker substance use type: does not use ROS ROS ED Constitutional Constitutional ED: Denies chills or fever(s) Eyes Eyes: Denies blurry vision or change in vision ENT ENT ED: Denies rhinorrhea or sore throat Cardiovascular Cardiovascular: Denies chest pain or palpitations Respiratory/Chest Respiratory/Chest: Denies cough or dyspnea Gastrointestinal Gastrointestinal: Denies nausea or vomiting Genitourinary Genitourinary ED: Denies dysuria or hematuria Musculoskeletal Musculoskeletal: Denies back pain or neck pain Integumentary Reports rash; Denies abscess Neurologic Neurologic: Denies headache(s) or weakness Allergic/Immunologic Allergic/Immunologic ED: Denies mouth swelling or urticaria EXAM Physical Exam Const Vital Signs: 10/28/24 07:41 10/28/24 07:44 Temperature 97.9 F 97.9 F Temperature Source Temporal Oral Pulse Rate 72 72 Respiratory Rate 18 18 Blood Pressure 135/63 H 135/63 H Blood Pressure Mean 87 87 Pulse Ox 95 95 Oxygen Delivery Method Room Air Room Air Positive well nourished and well developed General Appearance ED: well developed and NAD HEENT Reports moist mucous membranes Neck supple and no JVD Resp normal respiratory effort and clear to auscultation bilaterally Cardio regular rate and regular rhythm GI non-tender and non-distended Palpation: soft Extremity Extremity Narrative: There is some erythema over the anterior aspect of the left lower leg. There is no warmth. There is no discharge or drainage. There are no vesicles or pustules noted. There is no sloughing of the skin. There is no tenderness. Pedal pulses are equal bilaterally. Neuro oriented x3, CN's II-XII intact bilaterally and no sensory deficits noted Sensorium / Orientation: alert Motor Exam: strength 5/5 throughout MDM MDM MDM Narrative Medical decision making narrative: Differential diagnosis includes vasculitis, DVT, cellulitis, thrombocytopenia, and electrolyte abnormality. CBC will be obtained to assess for leukocytosis, thrombocytopenia, and anemia. Basic metabolic profile will be obtained to assess for electrolyte abnormality and renal function. Venous duplex of the left lower extremity will be obtained to assess for DVT. Lab Data Attestation: I reviewed the patient's lab results. Lab results narrative: CBC was reviewed. White blood cell count was 1.1. Hemoglobin was 8.2 and hematocrit was 25.1. Platelets were 59. These are consistent with previous results. Basic metabolic profile was reviewed. BUN was 54 and creatinine was 2.64. This is consistent with previous results. The remainder is within normal limits. Labs: Laboratory Results - last 24 hr 10/28/24 08:11 WBC 1.1 L* RBC 2.42 L Hgb 8.2 L Hct 25.1 L MCV 103.7 H MCH 33.9 H MCHC 32.7 RDW Std Deviation 77.6 H RDW Coeff of Beto 20.4 H Plt Count 59 L MPV 10.4 Immature Gran % (Auto) 0.900 Neut % (Auto) 32.7 L Lymph % (Auto) 51.8 H [place] % (Auto) 9.1 Eos % (Auto) 5.5 H Baso % (Auto) 0.0 Absolute Neuts (auto) 0.4 L Absolute Lymphs (auto) 0.57 L Nucleated RBC % 0 Diff Path Review May foll Platelet Estimate MKD DEC Anisocytosis 2+ Ovalocytes 2+ Sodium 139 Potassium 4.2 Chloride 105 Carbon Dioxide 28.0 Anion Gap 6 BUN 54 H Creatinine 2.64 H Estim Creat Clear Calc 22.38 Est GFR (MDRD) Af Amer 30 L Est GFR (MDRD) Non-Af 24 L BUN/Creatinine Ratio 20.5 H Glucose 142 H Calcium 9.1 Radiography Diagnostic Testing: Venous duplex of the left lower extremity was obtained. There is no evidence of DVT. Treatment and Re-Evaluation :: Patient was advised of his findings. 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 Patient was instructed to finish the antibiotics as previously prescribed. 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 Patient was instructed to return if worse in any way. Patient understood and was agreeable with the plan. All questions were answered. Discharge Plan Triage Chief Complaint: Cellulitis ED Provider: Bubba Del Cid Dx/Rx/DC Orders Clinical Impression: Chronic lymphocytic leukemia of B-cell type, Stage 4 chronic kidney disease, Pancytopenia Instructions: ED Anemia, Type Not Specified (Adult) Prescriptions: No Action nitroglycerin 0.4 mg tablet, sublingual 0.4 mg sublingual ONCE Rx Instructions: as a single dose; administer 5-10 minutes before situation known to precipitate angina attack primidone 50 mg tablet 50 mg PO ONCE atorvastatin 40 mg tablet 40 mg PO DAILY pantoprazole 40 mg tablet,delayed release (DR/EC) 40 mg PO DAILY 30 Days Qty: 30 4RF magnesium chloride 64 mg tablet,delayed release (DR/EC) 64 mg PO BID 30 Days Qty: 60 2RF spironolactone 25 mg tablet 37.5 mg PO DAILY 30 Days Qty: 45 2RF Rx Instructions: Hold if serum potassium is more than 5.0. lactulose 20 gram/30 mL solution 30 g PO BID 30 Days Qty: 2700 5RF Rx Instructions: Hold if > 2BM/day Xifaxan 550 mg tablet 550 mg PO BID 30 Days Qty: 60 6RF ferrous sulfate 325 mg (65 mg iron) tablet 325 mg PO Q OTHER DAY 30 Days Qty: 30 2RF multivitamin Tablet 1 tab PO DAILY allopurinol 100 mg Tablet 100 mg PO DAILY gabapentin 300 mg Capsule 300 mg PO BID 7 Days Qty: 14 0RF Rx Instructions: Listed on home med list, doesn't seem to have filled recently. Short course sent until this can be discussed with PCP furosemide 20 mg tablet 40 mg PO DAILY metoprolol tartrate 50 mg tablet 50 mg PO BID Qty: 60 0RF ascorbic acid (vitamin C) [Vitamin C] 250 mg tablet 250 mg PO BID Qty: 60 0RF insulin glargine [Lantus Solostar U-100 Insulin] 100 unit/mL (3 mL) insulin pen 22 unit SUBCUT QHS Qty: 15 0RF Patient Comments: inject 30 units daily Primary Care Provider: Palmira Cazares Referrals: Palmira Cazares MD [Primary Care Provider] - 3-5 Days Activity Restrictions/Additional Instructions: Finish the rest of your antibiotics until gone. 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 Print Language: Greek Disposition Disposition: Home, Self Care
--- NOTE | 2024-10-28 07:53 | ED.RN ---
PT WAS SEEN AT [facility] AFTER HE WAS TOLD HE HAD SHINGLES. THEY TREATED HIM FOR AN INFECTION IN THE LEFT LEG. PT HAS A REDDENED RASH ON THE LEFT WHITTEN AREA. PT DENIES PAIN, PT DENIES ANY ISSUES BEARING WEIGHT. CONCERNED WITH THE REDNESS SPREADING UP THE LEG.
--- NOTE | 2024-10-28 08:02 | VDLE_ITS ---
Reason For Study: Left leg swelling RIGHT LEFT CFV is compressible, spontaneous, phasic, CFV is compressible, spontaneous, phasic, competent and demonstrates normal competent, and demonstrates normal augmentation. augmentation. Procedure FV is compressible, spontaneous, phasic, This is a venous duplex using B-mode, color competent and demonstrates normal flow and spectral Doppler. augmentation. Exam performed portable in ED. POP V is compressible, spontaneous, phasic, A preliminary report was called and/or faxed competent and demonstrates normal to Dr. Del Cid. augmentation. T/P Trunk is compressible. PTV is compressible. LT PerV is compressible. GastocV is partially compressible with bright intraluminal echoes consistent with Chronic DVT. GSV thoughout is partially compressible with bright intraluminal echoes consistent with Chronic SVT. VL/Venous Duplex US, Unilateral Interpretation Summary Chronic venous changes are noted in the left gastrocnemius vein, which is parti ally compressible and demonstrates bright intraluminal echogenicity. The remainder of the left lower extremity deep venous system is patent and compressible. Valvular competence appears intact within th e proximal deep venous system on the left . Chronic venous changes are noted in the left great saphenous vein. The right common femoral vein is patent and competent. Ordering Physician: Bubba Del Cid Referring Physician: Palmira Cazares Performed By: Natalya Rodriguez RVT
[2024-10-28 08:22] LABS: Absolute Lymphocyte Count 0.57 X10^3/uL (0.83-4.51); Absolute Neutrophil Count 0.4 X10^3/uL (2.0-7.7); Eosinophil# 0.06 X10^3/uL; Eosinophils% 5.5 % (0-5); Hematocrit 25.1 % (40-54); Hemoglobin 8.2 g/dL (13.0-16.5); Lymphocyte # 0.57 X10^3/ul (0.83-4.51); Lymphocyte % 51.8 % (19-41); Mean Corp Hgb Conc 32.7 g/dL (32-36); Mean Corpuscular Hgb 33.9 pg (27.0-32.0); Mean Corpuscular Volume 103.7 fL (80-94); Mean Platelet Vol. 10.4 fl (6.2-12.0); Monocyte% 9.1 % (0-10); NRBC Flagged by Analyzer 0 % (0-5); Neutrophil # 0.36 X10^3/uL (2.7-7.7); Neutrophil % 32.7 % (47-70); POSITIVE COUNT YES; POSITIVE DIFFERENTIAL YES; POSITIVE MORPHOLOGY YES; Platelet Count 59 K/mm3 (150-450); RBC Distribution Width CV 20.4 % (11.6-14.6); RBC Distribution Width SD 77.6 fl (35.1-43.9); Red Blood Count 2.42 M/mm3 (4.6-6.2); White Blood Count 1.1 K/mm3 (4.4-11.0)
[2024-10-28 08:28] LABS: Differential Indicated SCAN CRITERIA MET
[2024-10-28 08:29] LABS: Anion Gap 6 (5-15); BUN 54 mg/dL (7-18); BUN/Creat Ratio 20.5 RATIO (10-20); Calcium,Total 9.1 mg/dL (8.5-10.1); Chloride 105 mmol/L (98-107); Creatinine, Serum 2.64 mg/dL (0.70-1.30); EST Glomerular Filtration Rate 24 mL/min (>60); Est Glom Filt Rate - Afr Amer 30 mL/min (>60); Estimated Creatinine Clearance 22.38 ml/min; Glucose 142 mg/dL (74-106); Potassium 4.2 mmol/L (3.5-5.1); Sodium Level 139 mmol/L (136-145)
[2024-10-28 08:59] LABS: Anisocytosis 2+; Ovalocyte 2+
[2024-10-28 09:00] LABS: Platelet Estimate MKD DEC (ADEQ)
[2024-10-31 15:29] LABS: Pathologist Review Reviewed
== END 2024-10-28 09:41 | disposition home or self-care (01) ==
PROVIDERS: Emergency Provider Emergency Medicine; PCP Family Medicine; Visit Provider Emergency Medicine
DX: C91.10 Chronic lymphocytic leukemia of B-cell type not having achieved remission (principal); D61.818 Other pancytopenia; N18.4 Chronic kidney disease, stage 4 (severe); E11.22 Type 2 diabetes mellitus with diabetic chronic kidney disease; Z79.4 Long term (current) use of insulin; M79.89 Other specified soft tissue disorders; I12.9 Hypertensive chronic kidney disease with stage 1 through stage 4 chronic kidney disease, or unspecified chronic kidney disease; I25.10 Atherosclerotic heart disease of native coronary artery without angina pectoris; E78.00 Pure hypercholesterolemia, unspecified; Z95.5 Presence of coronary angioplasty implant and graft; Z79.899 Other long term (current) drug therapy
CPT/HCPCS: 80048; 85025; 93971; 99283

== ENCOUNTER → 2024-12-09 | Outpatient (CLI) | payer MEDICARE, OTHER, SELFPAY ==
[2024-12-09 12:24] LABS: Absolute Lymphocyte Count 0.81 X10^3/uL (0.83-4.51); Absolute Neutrophil Count 0.8 X10^3/uL (2.0-7.7); Basophil# 0.01 X10^3/uL; Basophil% 0.5 % (0-1); Eosinophil# 0.15 X10^3/uL; Hematocrit 25.7 % (40-54); Hemoglobin 8.3 g/dL (13.0-16.5); Lymphocyte # 0.81 X10^3/ul (0.83-4.51); Lymphocyte % 43.1 % (19-41); Mean Corp Hgb Conc 32.3 g/dL (32-36); Mean Corpuscular Hgb 35.8 pg (27.0-32.0); Mean Corpuscular Volume 110.8 fL (80-94); Mean Platelet Vol. 11.2 fl (6.2-12.0); Monocyte# 0.11 X10^3/uL; Monocyte% 5.9 % (0-10); NRBC Flagged by Analyzer 0 % (0-5); Neutrophil # 0.78 X10^3/uL (2.7-7.7); Neutrophil % 41.4 % (47-70); POSITIVE COUNT YES; POSITIVE DIFFERENTIAL YES; POSITIVE MORPHOLOGY YES; Platelet Count 76 K/mm3 (150-450); RBC Distribution Width CV 21.1 % (11.6-14.6); Red Blood Count 2.32 M/mm3 (4.6-6.2); White Blood Count 1.9 K/mm3 (4.4-11.0)
[2024-12-09 12:29] LABS: Differential Indicated SCAN CRITERIA MET
[2024-12-09 12:32] LABS: International Normalized Ratio 1.1; Prothrombin Time (Protime)PT. 13.9 SECONDS (11.7-14.9)
[2024-12-09 12:52] LABS: ALB/GLOB Ratio 0.8 RATIO (0.9-2.4); AST(SGOT) 34 U/L (15-37); Alanine Aminotransfer ALT/SGPT 31 U/L (16-61); Albumin, Serum 3.3 g/dL (3.2-5.0); Alkaline Phosphatase 116 U/L (45-117); Anion Gap 8 (5-15); BUN 40 mg/dL (7-18); BUN/Creat Ratio 15.8 RATIO (10-20); CRP 3.64 mg/L (0.0-3.0); Calcium,Total 8.8 mg/dL (8.5-10.1); Chloride 105 mmol/L (98-107); Cholesterol 94 mg/dL (200); Creatinine, Serum 2.53 mg/dL (0.70-1.30); EST Glomerular Filtration Rate 26 mL/min (>60); Est Glom Filt Rate - Afr Amer 31 mL/min (>60); Globulin 3.9 g/dL (2.2-4.2); Glucose 252 mg/dL (74-106); High Density Lipoprotein 32 mg/dL; Magnesium 1.7 mg/dL (1.6-2.6); Phosphorus 3.2 mg/dL (2.5-4.9); Potassium 4.5 mmol/L (3.5-5.1); Protein, Total 7.2 g/dL (6.4-8.2); Sodium Level 139 mmol/L (136-145); T4 Free Direct 0.85 ng/dL (0.76-1.46); Triglycerides 205 mg/dL; Very Low Density Lipoprotein 41 mg/dL (5-40)
[2024-12-09 13:11] LABS: Anisocytosis 1+; Platelet Estimate MOD DEC (ADEQ)
== END | disposition home or self-care (01) ==
LOC: LAB 11:53
PROVIDERS: PCP Family Medicine; Referring Provider Internal Medicine; Visit Provider Internal Medicine
DX: K74.60 Unspecified cirrhosis of liver (principal); N18.4 Chronic kidney disease, stage 4 (severe); E11.22 Type 2 diabetes mellitus with diabetic chronic kidney disease; R18.8 Other ascites; D63.8 Anemia in other chronic diseases classified elsewhere; K25.9 Gastric ulcer, unspecified as acute or chronic, without hemorrhage or perforation
CPT/HCPCS: 36415; 80053; 80061; 82140; 83735; 84100; 84439; 84443; 85025; 85610; 86140

== ENCOUNTER 2025-04-08 16:59 | Emergency (ER) | payer MEDICARE, OTHER, SELFPAY ==
[2025-04-08 17:01] VITALS: BP 119/61; PULSE 76; RESP 20; TEMP 36.4; O2SAT 97
--- NOTE | 2025-04-08 17:19 | EX.ED.UPPERE ---
HPI History of Present Illness Chief Complaint: Upper Extremity Injury [facility] Medical History Coronary artery disease Cirrhosis Anticoagulant long-term use Chronic lymphocytic leukemia of B-cell type Presence of stent in coronary artery in patient with coronary artery disease Hypercholesterolemia Diabetes Hypertension Home Medications ?Medication ?Instructions ?Recorded ?Last Taken ?Type allopurinol 100 mg tablet 100 mg PO DAILY 04/06/23 10/27/24 History multivitamin 1 tab PO DAILY 04/06/23 Unknown History gabapentin 300 mg capsule 300 mg PO BID 7 days #14 caps 04/09/23 10/27/24 Rx ascorbic acid (vitamin C) 250 mg 250 mg PO BID #60 tabs 04/20/23 Unknown Rx tablet (Vitamin C) insulin glargine 100 unit/mL (3 22 unit (0.22 mL) subcut QHS Check 04/20/23 Unknown Rx mL) subcutaneous pen (Lantus with primary doctor #15 mL Solostar U-100 Insulin) nitroglycerin 0.4 mg sublingual 0.4 mg sublingual ONCE 09/29/23 Unknown History tablet primidone 50 mg tablet 50 mg PO ONCE 09/29/23 10/27/24 History atorvastatin 40 mg tablet 40 mg PO DAILY 01/01/24 10/27/24 History magnesium chloride 64 mg 64 mg PO BID 1 month #60 tabs 01/01/24 Unknown Rx (magnesium chloride) tablet,delayed release pantoprazole 40 mg tablet,delayed 40 mg PO DAILY 30 days #30 tabs 01/01/24 10/27/24 Rx release Held on 12/15/24. Instructions: Duplicate Order lactulose 20 gram/30 mL oral 30 g (45 mL) PO BID 30 days #2,700 04/12/24 10/27/24 Rx solution mL rifaximin 550 mg tablet (Xifaxan) 550 mg PO BID 30 days #60 tabs 04/12/24 Unknown Rx ferrous sulfate 325 mg (65 mg 325 mg PO Q OTHER DAY 1 month #30 07/12/24 Unknown Rx iron) tablet tabs carvedilol 6.25 mg tablet 6.25 mg PO BID 1 month #60 tabs 12/15/24 Unknown Rx spironolactone 50 mg tablet 50 mg PO DAILY 1 month #30 tabs 12/15/24 Unknown Rx oxycodone 5 mg tablet 5 mg PO Q6H PRN pain 4 days #16 04/08/25 Unknown Rx tabs prednisone 20 mg tablet 20 mg PO DAILY #4 tabs 04/08/25 Unknown Rx Allergy/AdvReac Type Severity Reaction Status Date / Time metformin AdvReac Diarrhea Verified 04/08/25 17:01 Surgical History History of hernia surgery History of cholecystectomy Social History household members: spouse Smoking Status: Never smoker substance use type: does not use EXAM Physical Exam Const Vital Signs: 04/08/25 17:01 Temperature 97.6 F L Temperature Source Temporal Pulse Rate 76 Respiratory Rate 20 H Blood Pressure 119/61 Blood Pressure Mean 80 Pulse Ox 97 Oxygen Delivery Method Nasal Cannula Oxygen Flow Rate (L/min) 2 MDM MDM MDM Narrative Medical decision making narrative: HISTORY OF PRESENT ILLNESS: Chief complaint: Wrist pain 89-year-old male presents with severe wrist pain. He states he had 2 weeks of left wrist pain with no known injury. Has been wearing a wrist brace without improvement. Also notes paresthesias in the fingers 1st for 2nd and 3rd. REVIEW OF SYSTEMS: Pertinent positives: Wrist pain Pertinent negatives: Loss of movement PHYSICAL EXAM: Nursing triage notes reviewed, Vital signs reviewed Constitutional: please see mdm Extremities: No edema, noted muscle atrophy in the thenar eminence on the left, noted numbness in the median nerve distribution. Positive Tinel sign. No obvious joint effusion, redness or pain on forced exam to suggest septic arthritis Neuro: Intact 5/5 strength with ok sign (median), intact finger abduction (ulnar) intact wrist extension (radial n). Intact sensation in the radial, ulnar, and median nerve distributions. Skin: No rash or lesions noted MEDICAL DECISION MAKING: Chief Complaint: please see HPI External records reviewed: Reviewed prior imaging: No recent [facility] imaging of the wrist Factors affecting care: Cirrhosis, diabetes, gastric ulcer, leukemia, CKD Social determinants of health: none History obtained from others: no Consults: none MDM Narrative: The patient was initially hemodynamically stable, afebrile on 2 L nasal cannula I considered the following differential diagnosis: Wrist fracture, dislocation, septic arthritis, gouty arthritis, carpal tunnel Patient's clinical exam is most consistent with likely carpal tunnel. He had thenar muscle wasting, paresthesias in the median nerve distribution I obtained an x-ray to rule out bony injury and treat the patient with oral oxycodone (5 mg), ibuprofen, steroids. Discussed steroids increasing patient's blood sugar. Discussed low-carb diet while on steroids ALL IMAGES (IF OBTAINED) HAVE BEEN PERSONALLY REVIEWED AND INTERPRETED BY MYSELF. X-ray left wrist was read reviewed person myself showed no evidence of obvious bony abnormality. Radiologist agreed my interpretation. The patient and/or family, caregivers express understanding. The patient and/or family, caregivers agrees with the plan. Shared decision making: I will have a discussion with the patient and or visitors regarding risk/benefits of further testing or admission. They will be made aware of of the risk/benefits inherent in this decision they will be given the opportunity to voice understanding. Total critical care time today provided was at least 0 [] minutes. This excludes separately billable procedures. Critical care time (if documented) is secondary to the patient having high probability of clinically significant/life threatening deterioration in the patient's condition which required my urgent intervention. Impression: 1. Acute wrist pain 2. Carpal tunnel syndrome Dispo: Discharge home This note was generated with [employer]ur dictation software. It may contain incorrect words, spelling, and punctuation that were not noted in review of the chart prior to signing. Discharge Plan Triage Chief Complaint: Upper Extremity Injury ED Provider: Nilton Kilpatrick Dx/Rx/DC Orders Clinical Impression: Acute carpal tunnel syndrome Instructions: Carpal Tunnel Syndrome Prescriptions: New prednisone 20 mg tablet 20 mg PO DAILY Qty: 4 0RF oxycodone 5 mg tablet 5 mg PO Q6H PRN (Reason: pain) 4 Days Qty: 16 0RF No Action nitroglycerin 0.4 mg tablet, sublingual 0.4 mg sublingual ONCE Rx Instructions: as a single dose; administer 5-10 minutes before situation known to precipitate angina attack primidone 50 mg tablet 50 mg PO ONCE atorvastatin 40 mg tablet 40 mg PO DAILY pantoprazole 40 mg tablet,delayed release (DR/EC) 40 mg PO DAILY 30 Days Qty: 30 4RF magnesium chloride 64 mg tablet,delayed release (DR/EC) 64 mg PO BID 30 Days Qty: 60 2RF lactulose 20 gram/30 mL solution 30 g PO BID 30 Days Qty: 2700 5RF Rx Instructions: Hold if > 2BM/day Xifaxan 550 mg tablet 550 mg PO BID 30 Days Qty: 60 6RF ferrous sulfate 325 mg (65 mg iron) tablet 325 mg PO Q OTHER DAY 30 Days Qty: 30 2RF spironolactone 50 mg tablet 50 mg PO DAILY 30 Days Qty: 30 2RF Rx Instructions: Hold if serum potassium is more than 5.0. carvedilol 6.25 mg tablet 6.25 mg PO BID 30 Days Qty: 60 3RF Rx Instructions: must administer with a meal/food multivitamin Tablet 1 tab PO DAILY allopurinol 100 mg Tablet 100 mg PO DAILY gabapentin 300 mg Capsule 300 mg PO BID 7 Days Qty: 14 0RF Rx Instructions: Listed on home med list, doesn't seem to have filled recently. Short course sent until this can be discussed with PCP ascorbic acid (vitamin C) [Vitamin C] 250 mg tablet 250 mg PO BID Qty: 60 0RF insulin glargine [Lantus Solostar U-100 Insulin] 100 unit/mL (3 mL) insulin pen 22 unit SUBCUT QHS Qty: 15 0RF Patient Comments: inject 30 units daily Primary Care Provider: Palmira Cazares Referrals: Michele Velez MD [Med Staff - Active Staff] - Activity Restrictions/Additional Instructions: Thank you for trusting us with your care today! Your history and clinical exam are most consistent with carpal tunnel syndrome. Please wear your wrist brace as much as possible. Please take Tylenol (2 pills, 650 mg), ibuprofen (2 pills, 400 mg) every 6 hours as needed for pain and fever control. Please begin taking prednisone. Prednisone is a steroid which does increase your blood sugar levels. While on prednisone please eat a low carbohydrate diet. Please take oxycodone for breakthrough pain. Please return to the emergency department if your symptoms change or worsen. Please follow with our local hand surgeon Dr. Velez for further outpatient evaluation and management. Print Language: Belarusian Disposition Disposition: Home, Self Care Discharge Date/Time: 04/08/25 20:17
--- OUTSIDE RECORDS SUMMARY | 2025-04-08 17:25 | XMS RPT_ITS | CCD ---
Author Organization [facility] Care Team Providers Care Grab Driver Name Role Phone Jae Gannon April Unavailable [phone] Emery Brush Admitting Unavailable Emery Brush Attending Unavailable Aris Meredith Admitting Unavailable Aris Meredith Attending Unavailable Emery Brush Admitting Unavailable Emery Brush Attending Unavailable Jae Gannon April Primary Care Provider Jae Gannon Unavailable Unavailable Jae Gannon Unavailable Unavailable Black, Marimar Unavailable Unavailable Dew, Aiden Unavailable Unavailable Eyster, Ottoniel Unavailable Unavailable Sodium [Moles/Vol] 138 mmol/L Normal 136-145 [facility] Comment on above: Performed By: #### 2 [id number] #### RAUL [facility] [employer] [address] [place] [address] Urea nitrogen [Mass/Vol] 50 mg/dL High 6-23 [facility] Comment on above: Performed By: #### 2 [id number] #### RAUL [facility] [address] [place] [address] Urea nitrogen/Creatinine [Mass ratio] 29.4 ratio Normal 5.4-30.0 [facility] Comment on above: Performed By: #### 2 [id number] #### RAUL [facility] [address] [place] [address] eGFRon 12-07-2018 GFR/1.73 sq M predicted among non-blacks MDRD (S/P/Bld) [Vol rate/Area] 46 mL/min/1.73 m2 Normal [facility] Comment on above: Order Comment: Order added by Discern Expert. Performed By: #### 2 [id number] #### RAUL [facility] [address] [place] [address] GFR/1.73 sq M predicted among non-blacks MDRD (S/P/Bld) [Vol rate/Area] 38 mL/min/1.73 m2 [facility] Comment on above: Order Comment: Order added by Discern Expert. Performed By: #### 2 [id number] #### RAUL [id number] [place] [address] ECHOCARDIOGRAM COMPLETEon Transthoracic Echocardiogram Patient: ANASTACIO HOLLOWAY [facility] Rec#: [id number] (Age): 1935(83y) Height: 172.72(cm)/67(i Study Date: 11/16/2018 Weight: 110.22(kg)/242( Room#: BSA: [id number] Type: Loc: Sex: M Reading: Aris Meredith MD F Referring: ARIS MEREDITH JAMES Record Clerk: Renetta Greenwood RD, RVT History: Coronary artery disease. DVT. Hyperlipidemia Hypertension. Prior echo. Pulmonary embolus. Study Quality The study quality is fair. Summary: Patient identity verified (pause and confirm). Current HP present on patient chart. Procedure explained and patient verified understanding. Consent obtained for procedure. Conclusions: There is normal left ventricular systolic function. The estimated ejection fraction is 50-55%. The right ventricle is mildly dilated. The right ventricular global systolic function is mildly reduced. There is mild aortic regurgitation. There is evidence of moderate pulmonary hypertension. The right ventricular systolic pressure is 42.19 mmHg. Findings Reason For Study: Congestive heart failure. Left Ventricle: The left ventricular chamber size is normal. Mild concentric left ventricular hypertrophy is observed. There is normal left ventricular systolic function. The estimated ejection fraction is 50-55%. Left Atrium: The left atrium is mildly dilated. Right Ventricle: The right ventricle is mildly dilated. The right ventricular global systolic function is mildly reduced. Right Atrium: The right atrium appears normal. Aortic Valve: The aortic valve is trileaflet. Mild aortic cusp sclerosis is present. There is no hemodynamically significant stenosis. There is mild aortic regurgitation. Mitral Valve: There is mitral annular calcification. The mitral valve leaflets are mildly thickened. Mitral valve leaflet mobility appears normal. There is a trace of mitral regurgitation. Tricuspid Valve: The tricuspid valve appears grossly normal in structure and function. There is mild tricuspid regurgitation. The right ventricular systolic pressure is 42.19 mmHg. There is evidence of moderate pulmonary hypertension. Pulmonic Valve: The pulmonic valve appears grossly normal in structure and function. Pericardium: There is no pericardial effusion. The pericardium appears grossly normal. Aorta: The aortic root is normal in diameter. There is plaque visualized in the ascending aorta. HR 77 BP 157/81 Measurements Chambers 2D Name Value Normal Range IVSd (2D) 1.13 cm none LVPWd (2D) 1.06 cm none IVS:LVPW ratio (2D) 1.07 ratio none LVIDd (2D) 5.15 cm none LVIDs (2D) 3.63 cm none LVIDd (2D) index 2.32 cm/m2 none LVIDs (2D) index 1.63 cm/m2 none LV FS (2D) 29.51 % none LV FS (Teichholz) (2D) 29.5 % none LV FS (cube) (2D) 29.5 % none EF Teichholz (2D) 56.15 % none Ao root diameter (2D) 3.2 cm none LA dimension (AP) 2D 4.2 cm none LA:Ao ratio (2D) 1.31 ratio none Aortic root diameter (2D) inde1.44 cm/m2 none LA dimension (2D) index 1.89 cm/m2 none Volumes/Mass Name Value Normal Range LA ESV SP 4CH (MOD) 82.1 ml none LA ESV SP 2CH (MOD) 85.1 ml none LA ESV BP (MOD) 88.4 ml none LA ESV BP (MOD) index 39.82 ml/m2 none LV EDV SP 4CH (MOD) 96.5 ml none LV ESV SP 4CH (MOD) 37.9 ml none EF SP 4CH (MOD) 60.73 % none LV EDV SP 2CH (MOD) 79.8 ml none LV ESV SP 2CH (MOD) 31 ml none EF SP 2CH (MOD) 61.15 % none LV EDV BP 87.6 ml none LV ESV BP 34.9 ml none BP EF (MOD) 60.16 % none LV EDV BP index 39.46 ml/m2 none LV ESV BP index 15.72 ml/m2 none LV mass (2D) 215.97 g none LV mass (2D) index 97.27 g/m2 none Diastolic/Systolic Function Name Value Normal Range MV E-wave Vmax 0.94 m/sec none MV deceleration time 197 msec none MV A-wave Vmax 1.14 m/sec none MV E:A ratio 0.83 ratio (1.1 - 1.5) LV E:e' septal ratio 13.5 ratio none LV E:e' lateral ratio 12 ratio none TAPSE 2.96 cm none Aortic Valve Name Value Normal Range AV Vmax 1.69 m/sec (1 - 1.7) AV VTI 34.7 cm none AV peak gradient 11.42 mmHg (Less Than 36) AV mean gradient 5 mmHg (Less Than 20) LVOT diameter 2.1 cm (1.7 - 2.5) LVOT Vmax 1.28 m/sec (0.7 - 1.1) LVOT VTI 28.2 cm none LVOT peak gradient 7 mmHg none LVOT mean gradient 3 mmHg none DOI (VTI) 0.81 ratio none DOI (Vmax) 0.76 ratio none SV LVOT 97.62 ml none CO LVOT 7.52 l/min none Cardiac index 3.39 l/min/m2 none DENG (continuity Vmax) 2.62 cm2 none DENG (continuity Vmax) index 1.18 cm2/m2 none DENG (continuity VTI) 2.81 cm2 none DENG (continuity VTI) index 1.27 cm2/m2 none AR PHT 451 msec none AR peak gradient 71 mmHg none Ascending Ao 3.6 cm none Mitral Valve Name Value Normal Range MV Vmax 1.09 m/sec (0.6 - 1.3) MV VTI 43 cm none MV peak gradient 4.75 mmHg none MV mean gradient 3 mmHg none MV PHT 80 msec none MVA (PHT) 2.75 cm2 none MVA (continuity VTI) 2.27 cm2 none Tricuspid Valve Name Value Normal Range TR Vmax 3.13 m/sec none TR peak gradient 39.19 mmHg none RAP 3 mmHg none RVSP 42.19 mmHg none Pulmonic Valve/Qp:Qs Name Value Normal Range PV Vmax 0.99 m/sec (0.6 - 0.9) PV VTI 23.1 cm none PV peak gradient 3.93 mmHg none PV mean gradient 2 mmHg none Electronically Signed at 11/16/2018 16:47:59 by: Aris Meredith MD [facility] Interface, Rad In [facility] Xper Echopacs - 11/16/2018 4:53 PM EST Transthoracic Echocardiogram Patient: ANASTACIO HOLLOWAY [facility] Rec#: [id number] (Age): 1935(83y) Height: 172.72(cm)/67(i Study Date: 11/16/2018 Weight: 110.22(kg)/242( Room#: BSA: [id number] Type: Loc: Sex: M Reading: Aris Meredith MD F Referring: ARIS MEREDITH JAMES Record Clerk: Renetta Greenwood [facility], T History: Coronary artery disease. DVT. Hyperlipidemia Hypertension. Prior echo. Pulmonary embolus. Study Quality The study quality is fair. Summary: Patient identity verified (pause and confirm). Current HP present on patient chart. Procedure explained and patient verified understanding. Consent obtained for procedure. Conclusions: There is normal left ventricular systolic function. The estimated ejection fraction is 50-55%. The right ventricle is mildly dilated. The right ventricular global systolic function is mildly reduced. There is mild aortic regurgitation. There is evidence of moderate pulmonary hypertension. The right ventricular systolic pressure is 42.19 mmHg. Findings Reason For Study: Congestive heart failure. Left Ventricle: The left ventricular chamber size is normal. Mild concentric left ventricular hypertrophy is observed. There is normal left ventricular systolic function. The estimated ejection fraction is 50-55%. Left Atrium: The left atrium is mildly dilated. Right Ventricle: The right ventricle is mildly dilated. The right ventricular global systolic function is mildly reduced. Right Atrium: The right atrium appears normal. Aortic Valve: The aortic valve is trileaflet. Mild aortic cusp sclerosis is present. There is no hemodynamically significant stenosis. There is mild aortic regurgitation. Mitral Valve: There is mitral annular calcification. The mitral valve leaflets are mildly thickened. Mitral valve leaflet mobility appears normal. There is a trace of mitral regurgitation. Tricuspid Valve: The tricuspid valve appears grossly normal in structure and function. There is mild tricuspid regurgitation. The right ventricular systolic pressure is 42.19 mmHg. There is evidence of moderate pulmonary hypertension. Pulmonic Valve: The pulmonic valve appears grossly normal in structure and function. Pericardium: There is no pericardial effusion. The pericardium appears grossly normal. Aorta: The aortic root is normal in diameter. There is plaque visualized in the ascending aorta. HR 77 BP 157/81 Measurements Chambers 2D Name Value Normal Range IVSd (2D) 1.13 cm none LVPWd (2D) 1.06 cm none IVS:LVPW ratio (2D) 1.07 ratio none LVIDd (2D) 5.15 cm none LVIDs (2D) 3.63 cm none LVIDd (2D) index 2.32 cm/m2 none LVIDs (2D) index 1.63 cm/m2 none LV FS (2D) 29.51 % none LV FS (Teichholz) (2D) 29.5 % none LV FS (cube) (2D) 29.5 % none EF Teichholz (2D) 56.15 % none Ao root diameter (2D) 3.2 cm none LA dimension (AP) 2D 4.2 cm none LA:Ao ratio (2D) 1.31 ratio none Aortic root diameter (2D) inde1.44 cm/m2 none LA dimension (2D) index 1.89 cm/m2 none Volumes/Mass Name Value Normal Range LA ESV SP 4CH (MOD) 82.1 ml none LA ESV SP 2CH (MOD) 85.1 ml none LA ESV BP (MOD) 88.4 ml none LA ESV BP (MOD) index 39.82 ml/m2 none LV EDV SP 4CH (MOD) 96.5 ml none LV ESV SP 4CH (MOD) 37.9 ml none EF SP 4CH (MOD) 60.73 % none LV EDV SP 2CH (MOD) 79.8 ml none LV ESV SP 2CH (MOD) 31 ml none EF SP 2CH (MOD) 61.15 % none LV EDV BP 87.6 ml none LV ESV BP 34.9 ml none BP EF (MOD) 60.16 % none LV EDV BP index 39.46 ml/m2 none LV ESV BP index 15.72 ml/m2 none LV mass (2D) 215.97 g none LV mass (2D) index 97.27 g/m2 none Diastolic/Systolic Function Name Value Normal Range MV E-wave Vmax 0.94 m/sec none MV deceleration time 197 msec none MV A-wave Vmax 1.14 m/sec none MV E:A ratio 0.83 ratio (1.1 - 1.5) LV E:e' septal ratio 13.5 ratio none LV E:e' lateral ratio 12 ratio none TAPSE 2.96 cm none Aortic Valve Name Value Normal Range AV Vmax 1.69 m/sec (1 - 1.7) AV VTI 34.7 cm none AV peak gradient 11.42 mmHg (Less Than 36) AV mean gradient 5 mmHg (Less Than 20) LVOT diameter 2.1 cm (1.7 - 2.5) LVOT Vmax 1.28 m/sec (0.7 - 1.1) LVOT VTI 28.2 cm none LVOT peak gradient 7 mmHg none LVOT mean gradient 3 mmHg none DOI (VTI) 0.81 ratio none DOI (Vmax) 0.76 ratio none SV LVOT 97.62 ml none CO LVOT 7.52 l/min none Cardiac index 3.39 l/min/m2 none DENG (continuity Vmax) 2.62 cm2 none DENG (continuity Vmax) index 1.18 cm2/m2 none DENG (continuity VTI) 2.81 cm2 none DENG (continuity VTI) index 1.27 cm2/m2 none AR PHT 451 msec none AR peak gradient 71 mmHg none Ascending Ao 3.6 cm none Mitral Valve Name Value Normal Range MV Vmax 1.09 m/sec (0.6 - 1.3) MV VTI 43 cm none MV peak gradient 4.75 mmHg none MV mean gradient 3 mmHg none MV PHT 80 msec none MVA (PHT) 2.75 cm2 none MVA (continuity VTI) 2.27 cm2 none Tricuspid Valve Name Value Normal Range TR Vmax 3.13 m/sec none TR peak gradient 39.19 mmHg none RAP 3 mmHg none RVSP 42.19 mmHg none Pulmonic Valve/Qp:Qs Name Value Normal Range PV Vmax 0.99 m/sec (0.6 - 0.9) PV VTI 23.1 cm none PV peak gradient 3.93 mmHg none PV mean gradient 2 mmHg none Electronically Signed at 11/16/2018 16:47:59 by: Aris Meredith MD [facility] CMPon 11-04-2018 Albumin [Mass/Vol] 4.1 g/dL Normal 3.4-5.0 [facility] Comment on above: Order Comment: Be called to ok the december blood work to be done.. Performed By: #### 2 [id number] #### RAUL [facility] [employer] [address] [place] [address] Albumin/Globulin [Mass ratio] 1.4 {ratio} Normal 1.1-1.9 [facility] Comment on above: Order Comment: Be called to ok the december blood work to be done.. Performed By: #### 2 [id number] #### RAUL [facility] [address] [place] [address] Alk Phos 73 Int._Unit/L Normal 33-136 [facility] Comment on above: Order Comment: Be called to ok the december blood work to be done.. Performed By: #### 2 [id number] #### ARUL [facility] [address] [place] [address] ALT [Catalytic activity/Vol] 52 Int._Unit/L Normal 10-52 [facility] Comment on above: Order Comment: Be called to ok the december blood work to be done.. Performed By: #### 2 [id number] #### RAUL [facility] [employer] [facility] [employer] [address] [place] [address] Anion gap [Moles/Vol] 12 mmol/L Normal 10-[address] [facility] Comment on above: Order Comment: Be called to ok the december blood work to be done.. Performed By: #### 2 [id number] #### RAUL [address] [address] AST [Catalytic activity/Vol] 50 Int._Unit/L High 9-39 [facility] Comment on above: Order Comment: Be called to ok the december blood work to be done.. Performed By: #### 2 [id number] #### RAUL [address] [address] Bili Total 0.71 mg/dL Normal 0.00-1.20 [facility] Comment on above: Order Comment: Be called to ok the december blood work to be done.. Performed By: #### 2 [id number] #### [facility]UL [facility] [employer] [address] [place] [address] Calcium [Mass/Vol] 10.0 mg/dL Normal 8.6-10.3 [facility] Comment on above: Order Comment: Be called to ok the december blood work to be done.. Performed By: #### 2 [id number] #### [facility]UL [facility] [employer] [address] [place] [address] Chloride [Moles/Vol] 105 mmol/L Normal 98-107 [facility] Comment on above: Order Comment: Be called to ok the december blood work to be done.. Performed By: #### 2 [id number] #### RAUL [facility] [employer] [address] [place] [address] CO2 [Moles/Vol] 26.0 mmol/L Normal 21.0-32.0 [facility] Comment on above: Order Comment: Be called to ok the december blood work to be done.. Performed By: #### 2 [id number] #### [facility] [employer] [address] [place] [address] Creatinine [Mass/Vol] 1.8 mg/dL High 0.5-1.[address] [facility] Comment on above: Order Comment: Be called to ok the december blood work to be done.. Performed By: #### 2 [id number] #### RAUL [address] [address] Globulin (S) [Mass/Vol] 3.0 g/dL Normal 2.0-4.0 [facility] Comment on above: Order Comment: Be called to ok the december blood work to be done.. Performed By: #### 2 [id number] #### [address] [address] Glucose [Mass/Vol] 163 mg/dL High 70-99 [facility] Comment on above: Order Comment: Be called to ok the december blood work to be done.. Performed By: #### 2 [id number] #### [address] [address] Potassium [Moles/Vol] 4.7 mmol/L Normal 3.5-5.[address] [facility] Comment on above: Order Comment: Be called to ok the december blood work to be done.. Performed By: #### 2 314204 #### RAUL [address] [address] Protein [Mass/Vol] 7.1 g/dL Normal 6.4-8.2 [facility] Comment on above: Order Comment: Be called to ok the december blood work to be done.. Performed By: #### 2 745993 #### RAUL [address] [address] Sodium [Moles/Vol] 139 mmol/L Normal 136-145 [facility] Comment on above: Order Comment: Be called to ok the december blood work to be done.. Performed By: #### 2 [id number] #### [address] [address] Urea nitrogen [Mass/Vol] 46 mg/dL High 6-23 [facility] Comment on above: Order Comment: Be called to ok the december blood work to be done.. Performed By: #### 2 [id number] #### RAUL [facility] [address] [place] [address] Urea nitrogen/Creatinine [Mass ratio] 25.6 ratio Normal 5.4-30.0 [facility] Comment on above: Order Comment: Be called to ok the december blood work to be done.. Performed By: #### 2 655156 #### RAUL [facility] [address] [place] [address] [id number] 11-04-2018 HbA1c (Bld) [Mass fraction] 7.1 % High 4.0-6.3 [facility] Comment on above: Performed By: #### 2 [id number] #### RAUL [facility] [address] [place] [address] Lipid Profileon 11-04-2018 Cholesterol [Mass/Vol] 168 mg/dL Normal 0-199 [facility] Comment on above: Result Comment: TOTA L CHOLEESTEROL: <200 NORMAL 200 - 239 BORDERLINE HIGH >240 HIGH Performed By: #### 2 [id number] #### [facility]UL [facility] [employer] [address] [place] [address] Cholesterol in HDL [Mass/Vol] 40 mg/dL Normal 40-60 [facility] Comment on above: Performed By: #### 2 779213 #### RAUL [facility] [employer] [address] [place] [address] Cholesterol in LDL [Mass/Vol] 71 mg/dL Normal 0-130 [facility] Comment on above: Result Comment: <100 OPTIMAL 100-129 NEAR / ABOVE OPTIMAL 130-159 BORDERLINE HIGH 160-189 HIGH >190 VERY HIGH CALC LDL NOT VALID WHEN TRIGLYCERIDE IS >400 MG/DL Performed By: #### 2 [id number] #### RAUL [facility] [address] [place] [address] Cholesterol in VLDL [Mass/Vol] 57 mg/dL High 0-40 [facility] Comment on above: Performed By: #### 2 [id number] #### RAUL [facility] [employer] [address] [place] [address] Triglyceride [Mass/Vol] 286 mg/dL High 0-149 [facility] Comment on above: Result Comment: AGE DESIRABLE BORDERLINE HIGH 91 D - 9 Y 0 - 74 75 - 99 > 100 10 - 19 Y 0 - 89 90 - 129 > 130 20 -24 Y 0 - 114 115 - 149 > 150 > 25 0 - 149 150 - 199 200 - 499 Performed By: #### 2 [id number] #### RAUL [facility] [address] [place] [address] eGFRon 11-04-2018 GFR/1.73 sq M predicted among non-blacks MDRD (S/P/Bld) [Vol rate/Area] 44 mL/min/1.73 m2 Normal [facility] Comment on above: Order Comment: Order added by Discern Expert. Performed By: #### 2 [id number] #### RAUL [facility] [address] [place] [address] GFR/1.73 sq M predicted among non-blacks MDRD (S/P/Bld) [Vol rate/Area] 36 mL/min/1.73 m2 Normal [facility] Comment on above: Order Comment: Order added by Discern Expert. Performed By: #### 2 [id number] #### RAUL [facility] [address] [place] [address] BMPon 10-08-2018 Anion gap [Moles/Vol] 12 mmol/L Normal 10-[address] [facility] Comment on above: Performed By: #### 2 [id number] #### RAUL [facility] [address] [place] [address] Calcium [Mass/Vol] 9.3 mg/dL Normal 8.6-10.3 [facility] Comment on above: Performed By: #### 2 [id number] #### RAUL [facility] [address] [place] [address] Chloride [Moles/Vol] 102 mmol/L Normal 98-107 [facility] Comment on above: Performed By: #### 2 [id number] #### RAUL [facility] [address] [place] [address] CO2 [Moles/Vol] 29.0 mmol/L Normal 21.0-32.0 [facility] Comment on above: Performed By: #### 2 649869 #### RAUL [facility] [address] [place] [address] Creatinine [Mass/Vol] 1.8 mg/dL High 0.5-1.[address] [facility] Comment on above: Performed By: #### 2 267641 #### RAUL [facility] [address] [place] [address] Glucose [Mass/Vol] 251 mg/dL High 70-99 [facility] Comment on above: Performed By: #### 2 065787 #### RAUL [facility] [address] [place] [address] Potassium [Moles/Vol] 4.1 mmol/L Normal 3.5-5.[address] [facility] Comment on above: Performed By: #### 2 [id number] #### RAUL [facility] [address] [place] [address] Sodium [Moles/Vol] 139 mmol/L Normal 136-145 [facility] Comment on above: Performed By: #### 2 863834 #### RAUL [facility] [address] [place] [address] Urea nitrogen [Mass/Vol] 32 mg/dL High 6-23 [facility] Comment on above: Performed By: #### 2 497239 #### RAUL [facility] [address] [place] [address] Urea nitrogen/Creatinine [Mass ratio] 17.8 ratio Normal 5.4-30.0 [facility] Comment on above: Performed By: #### 2 345169 #### RAUL [facility] [address] [place] [address] eGFRon 10-08-2018 GFR/1.73 sq M predicted among non-blacks MDRD (S/P/Bld) [Vol rate/Area] 44 mL/min/1.73 m2 [facility] Comment on above: Order Comment: Order added by Discern Expert. Performed By: #### 2 [id number] #### RAUL [facility] [address] [place] [address] GFR/1.73 sq M predicted among non-blacks MDRD (S/P/Bld) [Vol rate/Area] 36 mL/min/1.73 m2 [facility] Comment on above: Order Comment: Order added by Discern Expert. Performed By: #### 2 [id number] #### RAUL [facility] [address] [place] [address] US Renalon 09-14-2018 US Renal Exam Date/Time: 09/13/2018 15:25 EST Reason for Exam: CKD;Renal failure Report STUDY: US Renal; 09/13/2018 3:25 pm INDICATION: Renal failure. COMPARISON: None. ACCESSION NUMBER(S): [id number] ORDERING CLINICIAN: Jose J Martin TECHNIQUE: Multiple images of the kidneys were obtained . FINDINGS: RIGHT KIDNEY: The right kidney measures 13.2 cm in length. The renal cortical echogenicity is diffusely increased. No hydronephrosis is present; no evidence of nephrolithiasis. There are few cysts in the right kidney the largest measuring 6.2 cm arising from the lower pole of the right kidney. LEFT KIDNEY: The left kidney measures 13.4 cm in length. The renal cortical echogenicity is diffusely increased. No hydronephrosis is present; no evidence of nephrolithiasis. 5.4 cm cyst in lower pole of the left kidney. 3.4 cm cyst in the interpolar region. BLADDER: Urinary bladder is incompletely distended which limits evaluation IMPRESSION: Increased echogenicity bilateral kidneys suggestive of medical renal disease. No hydronephrosis. Bilateral renal cysts. FINAL REPORT Dictated: 09/14/2018 9:55 am Jania Saenz MD Signed (Electronic Signature): 09/14/2018 9:55 am Signed by: Jania Saenz MD Technologist: Normal [facility] Auto Diffon 09-13-2018 Basophils (Bld) [#/Vol] 0.1 E3/mcL Normal 0.0-0.2 [facility] Comment on above: Order Comment: Order added by Discern Expert. Performed By: #### 8 [id number] #### RAUL [facility] [employer] [address] [place] [address] Basophils/100 WBC (Bld) 1.9 % Normal 0.0-2.0 [facility] Comment on above: Order Comment: Order added by Discern Expert. Performed By: #### 8 [id number] #### RAUL [facility] [employer] [address] [place] [address] Eos Absolute 0.2 E3/mcL Normal 0.0-0.7 [facility] Comment on above: Order Comment: Order added by Discern Expert. Performed By: #### 8 [id number] #### RAUL [facility] [employer] [address] [place] [address] Eosinophils/100 WBC (Bld) 3.5 % Normal 0.0-11.0 [facility] Comment on above: Order Comment: Order added by Discern Expert. Performed By: #### 8 [id number] #### RAUL [facility] [employer] [address] [place] [address] Lymphocytes (Bld) [#/Vol] 1.0 E3/mcL Low 1.2-3.4 [facility] Comment on above: Order Comment: Order added by Discern Expert. Performed By: #### 8 [id number] #### RAUL [facility] [employer] [address] [place] [address] Lymphocytes/100 WBC (Bld) 17.3 % Low 20.0-55.0 [facility] Comment on above: Order Comment: Order added by Discern Expert. Performed By: #### 8 [id number] #### RAUL [facility] [employer] [address] [place] [address] [place] Absolute 0.5 E3/mcL Normal 0.0-0.7 [facility] Comment on above: Order Comment: Order added by Discern Expert. Performed By: #### 8 [id number] #### RAUL [facility] [employer] [address] [place] [address] Monocytes/100 WBC (Bld) 8.8 % Normal 0.0-10.0 [facility] Comment on above: Order Comment: Order added by Discern Expert. Performed By: #### 8 [id number] #### RAUL [facility] [employer] [address] [place] [address] Neutro Absolute 3.8 E3/mcL Normal 1.4-6.5 [facility] Comment on above: Order Comment: Order added by Discern Expert. Performed By: #### 8 [id number] #### [facility] [employer] [address] [place] [address] 64252 Neutro Auto 68.5 % Normal 37.0-75.0 [facility] Comment on above: Order Comment: Order added by Frank Expert. Performed By: #### 8 [id number] #### [facility] [address] [place] [address] 65964 CBC w/ Auto Diffon Erythrocyte distribution width (RBC) [Ratio] 13.6 % Normal 11.5-14.5 [facility] Comment on above: Performed By: #### 8 [id number] #### [facility] [address] [place] [address] 71240 Hematocrit (Bld) [Volume fraction] 44.2 % Normal 42.0-52.0 [facility] Comment on above: Performed By: #### 8 [id number] #### [facility] [address] [place] [address] 86872 Hemoglobin (Bld) [Mass/Vol] 14.9 g/dL Normal 13.5-18.0 [facility] Comment on above: Performed By: #### 8 [id number] #### [facility] [address] [place] [address] 98701 MCH (RBC) [Entitic mass] 35.2 pg High 27.0-31.0 [facility] Comment on above: Performed By: #### 8 [id number] #### [facility] [address] [place] [address] 03641 MCHC (RBC) [Mass/Vol] 33.7 g/dL Normal 33.0-37.[address] [facility] Comment on above: Performed By: #### 8 [id number] #### [facility] [address] [place] [address] 72075 MCV (RBC) [Entitic vol] 104.7 fL High 78.0-100.0 [facility] Comment on above: Performed By: #### 8 [id number] #### [facility] [address] [place] [address] 15575 Platelet mean volume (Bld) [Entitic vol] 7.8 fL Normal 7.4-11.0 [facility] Comment on above: Performed By: #### 8 [id number] #### [facility] [address] [place] [address] 63785 Platelets (Bld) [#/Vol] 188 E3/mcL Normal 130-400 [facility] Comment on above: Performed By: #### 8 [id number] #### [facility] [address] [place] [address] 64233 RBC (Bld) [#/Vol] 4.22 E6/mcL Normal 3.90-6.10 [facility] Comment on above: Performed By: #### 8 [id number] #### [facility] [address] [place] [address] 26170 WBC (Bld) [#/Vol] 5.5 E3/mcL Normal 3.6-11.0 [facility] Comment on above: Performed By: #### 8 [id number] #### [facility] [address] [place] [address] 84440 CMPon 09-13-2018 Albumin [Mass/Vol] 4.2 g/dL Normal 3.4-5.0 [facility] Comment on above: Performed By: #### 8 [id number] #### [facility] [address] [place], [place] [address] Albumin/Globulin [Mass ratio] 1.5 {ratio} Normal 1.1-1.9 [facility] Comment on above: Performed By: #### 8 [id number] #### [facility] [address] [place] [address] 05825 Alk Phos 76 Int._Unit/L Normal 33-136 [facility] Comment on above: Performed By: #### 8 [id number] #### [facility] [address] [place] [address] 94210 ALT [Catalytic activity/Vol] 43 Int._Unit/L Normal 10-52 [facility] Comment on above: Performed By: #### 8 [id number] #### [facility] [address] [place] [address] 23303 Anion gap [Moles/Vol] 12 mmol/L Normal 10-[address] [facility] Comment on above: Performed By: #### 8 [id number] #### [facility] [address] [place] [address] 66664 AST [Catalytic activity/Vol] 41 Int._Unit/L High 9-39 [facility] Comment on above: Performed By: #### 8 [id number] #### [facility] [address] [place] [address] 24400 Bili Total 0.8 mg/dL Normal 0.0-1.2 [facility] Comment on above: Performed By: #### 8 [id number] #### [facility] [address] [place] [address] 18319 Calcium [Mass/Vol] 9.4 mg/dL Normal 8.6-10.3 [facility] Comment on above: Performed By: #### 8 [id number] #### [facility] [employer] [address] [place] [address] 58491 Chloride [Moles/Vol] 107 mmol/L Normal 98-107 [facility] Comment on above: Performed By: #### 8 [id number] #### [facility] [address] [place] [address] 22013 CO2 [Moles/Vol] 25.0 mmol/L Normal 21.0-32.0 [facility] Comment on above: Performed By: #### 8 [id number] #### [facility] [address] [place] [address] 17512 Creatinine [Mass/Vol] 1.5 mg/dL High 0.5-1.[address] [facility] Comment on above: Performed By: #### 8 [id number] #### [facility] [address] [place] [address] 14927 Globulin (S) [Mass/Vol] 3.0 g/dL Normal 2.0-4.0 [facility] Comment on above: Performed By: #### 8 [id number] #### [facility] [address] [place] [address] 11704 Glucose [Mass/Vol] 138 mg/dL High 70-99 [facility] Comment on above: Performed By: #### 8 [id number] #### [facility] [address] [place] [address] 63763 Potassium [Moles/Vol] 4.4 mmol/L Normal 3.5-5.[address] [facility] Comment on above: Performed By: #### 8 [id number] #### [facility] [address] [place] [address] 43854 Protein [Mass/Vol] 7.0 g/dL Normal 6.4-8.2 [facility] Comment on above: Performed By: #### 8 [id number] #### [facility] [employer] [facility] [place] [address] Sodium [Moles/Vol] 140 mmol/L Normal 136-145 [facility] Comment on above: Performed By: #### 8 [id number] #### [facility] [employer] [facility] [place] [address] Urea nitrogen [Mass/Vol] 40 mg/dL High 6-23 [facility] Comment on above: Performed By: #### 8 [id number] #### [facility] [facility] [place] [address] Urea nitrogen/Creatinine [Mass ratio] 26.7 ratio Normal 5.4-30.0 [facility] Comment on above: Performed By: #### 8 [id number] #### [facility] [address] [place] [address] 93640 Magnesiumon 09-13-2018 Magnesium [Mass/Vol] 1.9 Int._Unit/L Normal 1.6-2.4 [facility] Comment on above: Performed By: #### 8 [id number] #### [facility] [employer] [address] [place] [address] 24533 Phosphoruson 09-13-2018 Phosphate [Mass/Vol] 3.5 mg/dL Normal 2.5-4.9 [facility] Comment on above: Performed By: #### 8 [id number] #### [facility] [address] [place] [address] 69089 U Creatinineon 09-13-2018 U Creatinine 174 mg/dL Normal 20-300 [facility] Comment on above: Performed By: #### 8 [id number] #### [facility] [address] [place] [address] 88900 U Proteinon 09-13-2018 Protein [Mass/Vol] 81 mg/dL High 1-14 [facility] Comment on above: Performed By: #### 2 [id number] #### [facility] [employer] [address] [place] [address] 10126 UA Completeon 09-13-2018 Color (U) Yellow Normal Yellow [facility] Comment on above: Performed By: #### 8 [id number] #### [facility] [employer] [address] [place] [address] Glucose (U) [Mass/Vol] Negative Normal Negative [facility] Comment on above: Performed By: #### 8 [id number] #### [facility] [employer] [address] [place] [address] Ketones Ql (U) Negative Normal Negative [facility] Comment on above: Performed By: #### 8 [id number] #### [facility] [employer] [address] [place] [address] RBC (U) [#/Vol] 0-3 Normal 0-3 [facility] Comment on above: Performed By: #### 8 [id number] #### [facility] [employer] [address] [place] [address] UA Blood Negative Normal Negative [facility] Comment on above: Performed By: #### 8 [id number] #### [facility] [address] [place] [address] UA Clarity Clear Normal Clear [facility] Comment on above: Performed By: #### 8 [id number] #### [facility] [address] [place] [address] UA Leuk Est Negative Normal Negative [facility] Comment on above: Performed By: #### 8 [id number] #### [facility] [address] [place] [address] UA Mucous Trace Abnormal Trace [facility] Comment on above: Performed By: #### 8 [id number] #### [facility] [address] [place] [address] UA Nitrite Negative Normal Negative [facility] Comment on above: Performed By: #### 8 [id number] #### [facility] [address] [place] [address] UA pH 5.0 Normal 4.6-8.0 [facility] Comment on above: Performed By: #### 8 [id number] #### [facility] [address] [place] [address] UA Protein 2+ Abnormal Negative [facility] Comment on above: Performed By: #### 8 [id number] #### [facility] [employer] [address] [place] [address] UA Spec Grav 1.019 Normal 1.003-1.030 [facility] Comment on above: Performed By: #### 8 [id number] #### [facility] [employer] [address] [place] [address] UA Urobilinogen Negative Normal [facility] Comment on above: Result Comment: Due to a manufacturing issue, low positive urobilinogen results may be fasely positive. Correlate with urine bilirubin and additional clinical/laboratory findings to assess the risk of hemolytic anemia or liver disease. If clinically indicated, repeat testing with an alternate method is available by contacting the laboratory within 24 hours. Performed By: #### 8 [id number] #### [facility] [employer] [address] [place] [address] UA WBC 0-5 Normal 0-5 [facility] Comment on above: Performed By: #### 8 [id number] #### [facility] [address] [place] [address] Urobilinogen Qn (U) Negative Normal Negative [facility] Comment on above: Performed By: #### 8 [id number] #### [facility] [employer] [address] [place] [address] eGFRon 09-13-2018 GFR/1.73 sq M predicted among non-blacks MDRD (S/P/Bld) [Vol rate/Area] 55 mL/min/1.73 m2 [facility] Comment on above: Order Comment: Order added by Discern Expert. Performed By: #### 8 [id number] #### [facility] [employer] [address] [place] [address] GFR/1.73 sq M predicted among non-blacks MDRD (S/P/Bld) [Vol rate/Area] 46 mL/min/1.73 m2 [facility] Comment on above: Order Comment: Order added by Discern Expert. Performed By: #### 8 [id number] #### [facility] [employer] [address] [place] [address] Auto Diffon 09-03-2018 Basophils (Bld) [#/Vol] 0.0 E3/mcL Normal 0.0-0.2 [facility] Comment on above: Order Comment: Order Added by Discern Expert. Performed By: #### 2 [id number] #### [facility] [employer] [address] [place] [address] 43944 Basophils/100 WBC (Bld) 0.5 % Normal 0.0-2.0 [facility] Comment on above: Order Comment: Order Added by Discern Expert. Performed By: #### 2 [id number] #### [facility] [employer] [address] [place] [address] 31892 Eos Absolute 0.2 E3/mcL Normal 0.0-0.7 [facility] Comment on above: Order Comment: Order Added by Discern Expert. Performed By: #### 2 [id number] #### [facility] [employer] [address] [place] [address] 39997 Eosinophils/100 WBC (Bld) 3.2 % Normal 0.0-11.0 [facility] Comment on above: Order Comment: Order Added by Discern Expert. Performed By: #### 2 [id number] #### [facility] [employer] [address] [place] [address] 28249 Lymphocytes (Bld) [#/Vol] 1.1 E3/mcL Low 1.2-3.4 [facility] Comment on above: Order Comment: Order Added by Discern Expert. Performed By: #### 2 [id number] #### [facility] [employer] [address] [place] [address] 75091 Lymphocytes/100 WBC (Bld) 18.6 % Low 20.0-55.0 [facility] Comment on above: Order Comment: Order Added by Discern Expert. Performed By: #### 2 [id number] #### [facility] [address] [place] [address] 03796 [place] Absolute 0.6 E3/mcL Normal 0.0-0.7 [facility] Comment on above: Order Comment: Order Added by Discern Expert. Performed By: #### 2 [id number] #### [facility] [employer] [address] [place] [address] 88256 Monocytes/100 WBC (Bld) 10.3 % High 0.0-10.0 [facility] Comment on above: Order Comment: Order Added by Discern Expert. Performed By: #### 2 [id number] #### [facility] [employer] [facility] [address] [place] [address] Neutro Absolute 4.1 E3/mcL Normal 1.4-6.5 [facility] Comment on above: Order Comment: Order Added by Discern Expert. Performed By: #### 2 [id number] #### [facility] [employer]section [facility] [place] [address] Neutro Auto 67.4 % Normal 37.0-75.0 [facility] Comment on above: Order Comment: Order Added by Discern Expert. Performed By: #### 2 [id number] #### [facility] [employer] [address] [place] [address] 59289 BMPon 09-03-2018 Anion gap [Moles/Vol] 14 mmol/L Normal 10-[address] [facility] Comment on above: Performed By: #### 2 [id number] #### [facility] [address] [place] [address] 13602 Calcium [Mass/Vol] 9.0 mg/dL Normal 8.6-10.3 [facility] Comment on above: Performed By: #### 2 [id number] #### [facility] [address] [place] [address] 35016 Chloride [Moles/Vol] 107 mmol/L Normal 98-107 [facility] Comment on above: Performed By: #### 2 [id number] #### [facility] [address] [place] [address] 54117 CO2 [Moles/Vol] 21.0 mmol/L Normal 21.0-32.0 [facility] Comment on above: Performed By: #### 2 [id number] #### [facility] [address] [place] [address] 70070 Creatinine [Mass/Vol] 1.6 mg/dL High 0.6-1.[address] [facility] Comment on above: Performed By: #### 2 [id number] #### [facility] [address] [place] [address] 65396 Glucose [Mass/Vol] 140 mg/dL High 70-99 [facility] Comment on above: Performed By: #### 2 [id number] #### [facility] [address] [place] [address] 29880 Potassium [Moles/Vol] 4.5 mmol/L Normal 3.5-5.[address] [facility] Comment on above: Performed By: #### 2 [id number] #### [facility] [employer] [address] [place], [place] [address] Sodium [Moles/Vol] 137 mmol/L Normal 136-145 [facility] Comment on above: Performed By: #### 2 [id number] #### [facility] [address] [place] [address] 38928 Urea nitrogen [Mass/Vol] 27 mg/dL High 6-23 [facility] Comment on above: Performed By: #### 2 [id number] #### [facility] [address] [place], [place] [address] Urea nitrogen/Creatinine [Mass ratio] 16.9 ratio Normal 5.4-30.0 [facility] Comment on above: Performed By: #### 2 [id number] #### [facility] [employer] [address] [place], [place] [address] CBC w/ Auto Diffon 8 Erythrocyte distribution width (RBC) [Ratio] 13.7 % Normal 11.5-14.5 [facility] Comment on above: Performed By: #### 2 [id number] #### [facility] [employer] [address] [place], [place] [address] Hematocrit (Bld) [Volume fraction] 40.4 % Low 42.0-52.0 [facility] Comment on above: Performed By: #### 2 [id number] #### [facility] [address] [place] [address] 92674 Hemoglobin (Bld) [Mass/Vol] 13.7 g/dL Normal 13.5-18.0 [facility] Comment on above: Performed By: #### 2 [id number] #### [facility] [address] [place] [address] 03106 MCH (RBC) [Entitic mass] 35.4 pg High 27.0-31.0 [facility] Comment on above: Performed By: #### 2 [id number] #### [facility] [address] [place] [address] 96007 MCHC (RBC) [Mass/Vol] 33.9 g/dL Normal 33.0-37.[address] [facility] Comment on above: Performed By: #### 2 [id number] #### [facility] [address] [place] [address] 32039 MCV (RBC) [Entitic vol] 104.2 fL High 78.0-100.0 [facility] Comment on above: Performed By: #### 2 [id number] #### [facility] [address] [place] [address] 45463 Platelet mean volume (Bld) [Entitic vol] 8.4 fL Normal 7.4-11.0 [facility] Comment on above: Performed By: #### 2 [id number] #### [facility] [employer] [address] [place], [place] [address] Platelets (Bld) [#/Vol] 139 E3/mcL Normal 130-400 [facility] Comment on above: Performed By: #### 2 [id number] #### [facility] [address] [place], [place] [address] RBC (Bld) [#/Vol] 3.88 E6/mcL Low 3.90-6.10 [facility] Comment on above: Performed By: #### 2 [id number] #### [facility] [employer] [address] [place], [place] [address] WBC (Bld) [#/Vol] 6.0 E3/mcL Normal 3.6-11.0 [facility] Comment on above: Performed By: #### 2 [id number] #### [facility] [address] [place] [address] 44986 Glucose POCon 09-03-2018 Glucose [Mass/Vol] 170 mg/dL High 70-99 [facility] Comment on above: Performed By: #### 8 [id number] #### [facility] [address] [place] [address] 47115 Glucose [Mass/Vol] 135 mg/dL High 70-99 [facility] Comment on above: Performed By: #### 8 [id number] #### [facility] [address] [place], [place] [address] Heparin Anti-Xaon 09-03-2018 Heparin Anti-Xa >1.10 High .30-.70 [facility] Comment on above: Result Comment: IV t herapeutic unfractionated heparin: 0.3 - 0.7 anti-Xa units per mL plasma. *Prophylactic unfractionated heparin: 0.2-0.4 anti-Xa units per mL plasma. *Low molecular weight heparin (Lovenox, enoxaparin): 0.5 to 1.0 anti-Xa units per mL plasma for therapy when injected twice a day. Draw four hours after injection. *Low molecular weight heparin (Lovenox, enoxaparin): 1.0 to 2.0 anti-Xa units per mL plasma for therapy when injected once a day. Draw four hours after injection. *Low molecular weight heparin (Lovenox, enoxaparin): 0.2 to 0.4 anti-Xa units per mL plasma for prophylaxis. Draw four hours after injection. Performed By: #### 2 [id number] #### [facility] [employer] [address] [place] [address] eGFRon 09-03-2018 GFR/1.73 sq M predicted among non-blacks MDRD (S/P/Bld) [Vol rate/Area] 52 mL/min/1.73 m2 [facility] Comment on above: Order Comment: Order added by Discern Expert. Performed By: #### 2 [id number] #### [facility] [employer] [address] [place] [address] GFR/1.73 sq M predicted among non-blacks MDRD (S/P/Bld) [Vol rate/Area] 43 mL/min/1.73 m2 [facility] Comment on above: Order Comment: Order added by Discern Expert. Performed By: #### 2 [id number] #### [facility] [employer] [place] [address] .Manual Abson 09-02-2018 Basophil Abs Man 0.0 10x3/ Normal 0.0-0.2 [facility] Comment on above: Order Comment: Order Added by Discern Expert. Performed By: #### 2 [id number] #### [facility] [address] [place] [address] Eos Abs Man 0.1 10x3/ Normal 0.0-0.5 [facility] Comment on above: Order Comment: Order Added by Discern Expert. Performed By: #### 2 [id number] #### [facility] [employer]section [facility] [place] [address] Lymph Abs Man 1.0 10x3/ Low 1.2-3.4 [facility] Comment on above: Order Comment: Order Added by Discern Expert. Performed By: #### 2 [id number] #### [facility] [address] [place] [address] 35409 [place] Abs Man 0.3 10x3/ Normal 0.0-0.7 [facility] Comment on above: Order Comment: Order Added by Discern Expert. Performed By: #### 2 [id number] #### [facility] [address] [place] [address] Segs Abs Man 5.2 10x3/ Normal 1.4-6.5 [facility] Comment on above: Order Comment: Order Added by Discern Expert. Performed By: #### 2 [id number] #### [facility] [address] [place] [address] BMPon 09-02-2018 Anion gap [Moles/Vol] 13 mmol/L Normal 10-[address] [facility] Comment on above: Performed By: #### 2 [id number] #### [facility] [address] [place] [address] Calcium [Mass/Vol] 9.5 mg/dL Normal 8.6-10.3 [facility] Comment on above: Performed By: #### 2 [id number] #### [facility] [employer] [address] [place] [address] 07283 Chloride [Moles/Vol] 107 mmol/L Normal 98-107 [facility] Comment on above: Performed By: #### 2 710666 #### [facility] [employer] [address] [place] [address] 76723 CO2 [Moles/Vol] 23.0 mmol/L Normal 21.0-32.0 [facility] Comment on above: Performed By: #### 2 [id number] #### [facility] [address] [place], [place] [address] Creatinine [Mass/Vol] 1.4 mg/dL High 0.6-1.[address] [facility] Comment on above: Performed By: #### 2 [id number] #### [facility] [employer] [address] [place] [address] 41245 Glucose [Mass/Vol] 135 mg/dL High 70-99 [facility] Comment on above: Performed By: #### 2 595186 #### [facility] [employer] [address] [place] [address] 80253 Potassium [Moles/Vol] 5.1 mmol/L Normal 3.5-5.[address] [facility] Comment on above: Performed By: #### 2 [id number] #### [facility] [employer] [address] [place] [address] 25597 Sodium [Moles/Vol] 138 mmol/L Normal 136-145 [facility] Comment on above: Performed By: #### 2 [id number] #### [facility] [employer] [address] [place] [address] 58446 Urea nitrogen [Mass/Vol] 25 mg/dL High 6-23 [facility] Comment on above: Performed By: #### 2 [id number] #### [facility] [employer] [address] [place] [address] 72145 Urea nitrogen/Creatinine [Mass ratio] 17.9 ratio Normal 5.4-30.0 [facility] Comment on above: Performed By: #### 2 [id number] #### [facility] [address] [place] [address] 55665 CBC w/ Auto Diffon 8 Erythrocyte distribution width (RBC) [Ratio] 13.6 % Normal 11.5-14.5 [facility] Comment on above: Performed By: #### 2 [id number] #### [facility] [address] [place] [address] 63443 Hematocrit (Bld) [Volume fraction] 42.9 % Normal 42.0-52.0 [facility] Comment on above: Performed By: #### 2 [id number] #### [facility] [address] [place] [address] 45511 Hemoglobin (Bld) [Mass/Vol] 14.4 g/dL Normal 13.5-18.0 [facility] Comment on above: Performed By: #### 2 [id number] #### [facility] [place] [address] MCH (RBC) [Entitic mass] 34.9 pg High 27.0-31.0 [facility] [facility] Comment on above: Performed By: #### 2 [id number] #### RAUL Hematology Automated Subsection [facility]5 [place] [address] MCHC (RBC) [Mass/Vol] 33.7 g/dL Normal 33.0-37.[address] [facility] Comment on above: Performed By: #### 2 340842 #### RAUL Hematology Automated Subsection [facility]5 [place] [address] MCV (RBC) [Entitic vol] 103.6 fL High 78.0-100.0 [facility] Comment on above: Performed By: #### 2 674582 #### RAUL Hematology Automated Subsection [address] [place] [address] Platelet mean volume (Bld) [Entitic vol] 8.1 fL Normal 7.4-11.0 [facility] Comment on above: Performed By: #### 2 364389 #### RAUL Hematology Automated Subsection [address] [place] [address] Platelets (Bld) [#/Vol] 161 E3/mcL Normal 130-400 [facility] Comment on above: Performed By: #### 2 599081 #### RAUL Hematology Automated Subsection [address] [place] [address] RBC (Bld) [#/Vol] 4.14 E6/mcL Normal 3.90-6.10 [facility] Comment on above: Performed By: #### 2 307008 #### RAUL Hematology Automated Subsection [address] [place] [address] WBC (Bld) [#/Vol] 6.6 E3/mcL Normal 3.6-11.0 [facility] Comment on above: Performed By: #### 2 345919 #### RAUL Hematology Automated Subsection [address] [place] [address] Glucose POCon 09-02-2018 Glucose [Mass/Vol] 168 mg/dL High 70-99 [facility] Comment on above: Performed By: #### 2 539787 #### RAUL Hematology Automated Subsection [facility] [place] [address] Glucose [Mass/Vol] 131 mg/dL High 70-99 [facility] Comment on above: Performed By: #### 2 812992 #### RAUL Hematology Automated Subsection [address] [place] [address] Glucose [Mass/Vol] 143 mg/dL High 70-99 [facility] Comment on above: Performed By: #### 2 850934 #### RAUL Hematology Automated Subsection [address] [place] [address] Glucose [Mass/Vol] 126 mg/dL High 70-99 [facility] Comment on above: Performed By: #### 2 351019 #### RAUL Hematology Automated Subsection [address] [place] [address] 20205 Heparin Anti-Xaon 09-02-2018 Heparin Anti-Xa .65 International_Unit/mL Normal .30-.70 [facility] Comment on above: Result Comment: IV t herapeutic unfractionated heparin: 0.3 - 0.7 anti-Xa units per mL plasma. *Prophylactic unfractionated heparin: 0.2-0.4 anti-Xa units per mL plasma. *Low molecular weight heparin (Lovenox, enoxaparin): 0.5 to 1.0 anti-Xa units per mL plasma for therapy when injected twice a day. Draw four hours after injection. *Low molecular weight heparin (Lovenox, enoxaparin): 1.0 to 2.0 anti-Xa units per mL plasma for therapy when injected once a day. Draw four hours after injection. *Low molecular weight heparin (Lovenox, enoxaparin): 0.2 to 0.4 anti-Xa units per mL plasma for prophylaxis. Draw four hours after injection. Performed By: #### 2 973107 #### RAUL Hematology Automated Subsection [address] [place] [address] Heparin Anti-Xa .60 International_Unit/mL Normal .30-.70 [facility] Comment on above: Result Comment: IV t herapeutic unfractionated heparin: 0.3 - 0.7 anti-Xa units per mL plasma. *Prophylactic unfractionated heparin: 0.2-0.4 anti-Xa units per mL plasma. *Low molecular weight heparin (Lovenox, enoxaparin): 0.5 to 1.0 anti-Xa units per mL plasma for therapy when injected twice a day. Draw four hours after injection. *Low molecular weight heparin (Lovenox, enoxaparin): 1.0 to 2.0 anti-Xa units per mL plasma for therapy when injected once a day. Draw four hours after injection. *Low molecular weight heparin (Lovenox, enoxaparin): 0.2 to 0.4 anti-Xa units per mL plasma for prophylaxis. Draw four hours after injection. Performed By: #### 2 044570 #### RAUL Hematology Automated Subsection [address] [place] [address] Heparin Anti-Xa >1.10 High .30-.70 [facility] Comment on above: Result Comment: IV t herapeutic unfractionated heparin: 0.3 - 0.7 anti-Xa units per mL plasma. *Prophylactic unfractionated heparin: 0.2-0.4 anti-Xa units per mL plasma. *Low molecular weight heparin (Lovenox, enoxaparin): 0.5 to 1.0 anti-Xa units per mL plasma for therapy when injected twice a day. Draw four hours after injection. *Low molecular weight heparin (Lovenox, enoxaparin): 1.0 to 2.0 anti-Xa units per mL plasma for therapy when injected once a day. Draw four hours after injection. *Low molecular weight heparin (Lovenox, enoxaparin): 0.2 to 0.4 anti-Xa units per mL plasma for prophylaxis. Draw four hours after injection. Performed By: #### 2 [id number] #### RAUL Hematology Automated Subsection [address] [place] [id number] 09-02-2018 HbA1c (Bld) [Mass fraction] 6.8 % High 4.0-6.3 [facility] Comment on above: Performed By: #### 2 696603 #### RAUL Hematology Automated Subsection [address] [place] [id number] Manual Diffon 09-02-2018 Basophil Man 0 % Normal 0-1 [facility] Comment on above: Order Comment: Order Added by Discern Expert. Performed By: #### 2 488607 #### RAUL Hematology Automated Subsection [address] [place] [address] Eosinophils/100 WBC (Bld) 2 % Normal 0-5 [facility] Comment on above: Order Comment: Order Added by Discern Expert. Performed By: #### 2 692773 #### RAUL Hematology Automated Subsection [address] [place] [address] Lymphocytes/100 WBC (Bld) 15 % Normal 14-48 [facility] Comment on above: Order Comment: Order Added by Discern Expert. Performed By: #### 2 535053 #### RAUL Hematology Automated Subsection [address] [place] [address] Monocyte Man 4 % Normal 1-11 [facility] Comment on above: Order Comment: Order Added by Discern Expert. Performed By: #### 2 957214 #### RAUL Hematology Automated Subsection [facility]5 [place] [address] RBC morphology finding Nom (Bld) NORMAL Normal [facility] Comment on above: Order Comment: Order Added by Discern Expert. Performed By: #### 2 847435 #### RAUL Hematology Automated Subsection [facility]5 [place] [address] Segs Man 79 % High 37-75 [facility] Comment on above: Order Comment: Order Added by Discern Expert. Performed By: #### 2 254814 #### RAUL Hematology Automated Subsection [facility] [place] [address] eGFRon 09-02-2018 GFR/1.73 sq M predicted among non-blacks MDRD (S/P/Bld) [Vol rate/Area] 60 mL/min/1.73 m2 Normal [facility] Comment on above: Order Comment: Order added by Discern Expert. Performed By: #### 2 076429 #### RAUL Hematology Automated Subsection [address] [place] [address] GFR/1.73 sq M predicted among non-blacks MDRD (S/P/Bld) [Vol rate/Area] 50 mL/min/1.73 m2 Normal [facility] Comment on above: Order Comment: Order added by Discern Expert. Performed By: #### 2 087875 #### RAUL Hematology Automated Subsection [facility] [place] [address] zzplt morphon 09-02-2018 Platelet morphology finding Nom (Bld) NORMAL Normal [facility] Comment on above: Performed By: #### 2 151936 #### RAUL Hematology Automated Subsection [address] [place] [address] Platelets (Bld) [#/Vol] NORMAL Normal [facility] Comment on above: Performed By: #### 2 107916 #### RAUL Hematology Automated Subsection [address] [place] [address] Auto Diffon 09-01-2018 Basophils (Bld) [#/Vol] 0.0 E3/mcL Normal 0.0-0.2 [facility] Comment on above: Order Comment: Order Added by Discern Expert. Performed By: #### 2 085054 #### RAUL RemHemo [address] [place] [address] 96516 Basophils/100 WBC (Bld) 0.4 % Normal 0.0-2.0 [facility] Comment on above: Order Comment: Order Added by Discern Expert. Performed By: #### 2 086021 #### RAUL RemHemo [address] [place] [address]57 Eos Absolute 0.2 E3/mcL Normal 0.0-0.7 [facility] Comment on above: Order Comment: Order Added by Discern Expert. Performed By: #### 2 695558 #### RAUL RemHemo [address] [place] [address] 09567 Eosinophils/100 WBC (Bld) 2.7 % Normal 0.0-11.0 [facility] Comment on above: Order Comment: Order Added by Discern Expert. Performed By: #### 2 217838 #### RAUL RemHemo [address] [place] [address] Lymphocytes (Bld) [#/Vol] 1.0 E3/mcL Low 1.2-3.4 [facility] Comment on above: Order Comment: Order Added by Discern Expert. Performed By: #### 2 353657 #### RAUL RemHemo [address] [place] [address] Lymphocytes/100 WBC (Bld) 13.2 % Low 20.0-55.0 [facility] Comment on above: Order Comment: Order Added by Discern Expert. Performed By: #### 2 281631 #### RAUL BriggsHemo [address] [place] [address] [place] Absolute 0.8 E3/mcL High 0.0-0.7 [facility] Comment on above: Order Comment: Order Added by Discern Expert. Performed By: #### 2 793980 #### RAUL BriggsHemo [address] [place] [address] Monocytes/100 WBC (Bld) 10.5 % High 0.0-10.0 [facility] Comment on above: Order Comment: Order Added by Discern Expert. Performed By: #### 2 567313 #### RAUL BriggsHemo [address] [place] [id number] Neutro Absolute 5.6 E3/mcL Normal 1.4-6.5 [facility] Comment on above: Order Comment: Order Added by Discern Expert. Performed By: #### 2 773306 #### RAUL BriggsHemo [address] [place], [place] [address] Neutro Auto 73.2 % Normal 37.0-75.0 [facility] Comment on above: Order Comment: Order Added by Discern Expert. Performed By: #### 2 161227 #### RAUL BriggsHemo [address] [place] [address] BMPon 09-01-2018 Anion gap [Moles/Vol] 16 mmol/L Normal 10-[address] [facility] Comment on above: Performed By: #### 2 634813 #### RAUL BriggsHemo [address] [place] [address] Calcium [Mass/Vol] 9.6 mg/dL Normal 8.6-10.3 [facility] Comment on above: Performed By: #### 2 683118 #### RAUL BriggsHemo [address] [place] [address] Chloride [Moles/Vol] 106 mmol/L Normal 98-107 [facility] Comment on above: Performed By: #### 2 319399 #### RAUL BriggsHemo [address] [place] [address] CO2 [Moles/Vol] 21.0 mmol/L Normal 21.0-32.0 [facility] Comment on above: Performed By: #### 2 569570 #### RAUL BriggsHemo [address] [place] [address] Creatinine [Mass/Vol] 1.3 mg/dL Normal 0.6-1.[address] [facility] Comment on above: Performed By: #### 2 227359 #### RAUL BriggsHemo [address] [place] [address] Glucose [Mass/Vol] 120 mg/dL High 70-99 [facility] Comment on above: Performed By: #### 2 892371 #### RAUL BriggsHemo [address] [place] [address] Potassium [Moles/Vol] 4.5 mmol/L Normal 3.5-5.[address] [facility] Comment on above: Performed By: #### 2 267364 #### RAUL BriggsHemo [address] [place] [address] Sodium [Moles/Vol] 138 mmol/L Normal 136-145 [facility] Comment on above: Performed By: #### 2 303465 #### RAUL BriggsHemo [address] [place] [address] Urea nitrogen [Mass/Vol] 27 mg/dL High 6-23 [facility] Comment on above: Performed By: #### 2 921491 #### RAUL BriggsHemo [address] [place] [address] Urea nitrogen/Creatinine [Mass ratio] 20.8 ratio Normal 5.4-30.0 [facility] Comment on above: Performed By: #### 2 907386 #### RAUL BriggsHemo [address] [place] [address] CBC w/ Auto Diffon 8 Erythrocyte distribution width (RBC) [Ratio] 13.6 % Normal 11.5-14.5 [facility] Comment on above: Performed By: #### 2 065768 #### RAUL BriggsHemo [address] [place] [address] Hematocrit (Bld) [Volume fraction] 44.1 % Normal 42.0-52.0 [facility] Comment on above: Performed By: #### 2 971212 #### RAUL BriggsHemo [address] [place] [address] Hemoglobin (Bld) [Mass/Vol] 15.1 g/dL Normal 13.5-18.0 [facility] Comment on above: Performed By: #### 2 334559 #### RAUL BriggsHemo [address] [place] [address] MCH (RBC) [Entitic mass] 35.3 pg High 27.0-31.0 [facility] Comment on above: Performed By: #### 2 226076 #### RAUL BriggsHemo [address] [place] [address] MCHC (RBC) [Mass/Vol] 34.3 g/dL Normal 33.0-37.[address] [facility] Comment on above: Performed By: #### 2 956757 #### RAUL BriggsHemo [facility]5 [place] [address] MCV (RBC) [Entitic vol] 102.9 fL High 78.0-100.0 [facility] Comment on above: Performed By: #### 2 271803 #### RAUL BriggsHemo [address] [place] [address] Platelet mean volume (Bld) [Entitic vol] 7.6 fL Normal 7.4-11.0 [facility] Comment on above: Performed By: #### 2 103833 #### RAUL BriggsHemo [address] [place] [address] Platelets (Bld) [#/Vol] 176 E3/mcL Normal 130-400 [facility] Comment on above: Performed By: #### 2 933250 #### RAUL RemHemo [address] [place] [address] RBC (Bld) [#/Vol] 4.29 E6/mcL Normal 3.90-6.10 [facility] Comment on above: Performed By: #### 2 932225 #### RAUL RemHemo [address] [place] [address] WBC (Bld) [#/Vol] 7.6 E3/mcL Normal 3.6-11.0 [facility] Comment on above: Performed By: #### 2 146113 #### RAUL Shio [address] [place] [address] CKon 09-01-2018 Total CK 146 Int._Unit/L High 26-140 [facility] Comment on above: Performed By: #### 2 832976 #### RAUL BriggsHemo [address] [place] [address] CTA Cheston 09-01-2018 CTA Chest Exam Date/Time: 09/01/2018 15:29 EDT Reason for Exam: Elevated D-Dimer Report STUDY: CTA Chest; 09/01/2018 3:29 pm INDICATION: Elevated D-Dimer. COMPARISON: Two views of the chest 31 August 2018 ACCESSION NUMBER(S): [id number] ORDERING CLINICIAN: Zita Albert TECHNIQUE: Pulmonary arterial phase CT chest after the uneventful administration of 100 mL IV contrast (Omnipaque 350). 3-D images created, reviewed and saved: Positive; 3-D image/s were created, reviewed and saved FINDINGS: CARDIOVASCULAR: Acute pulmonary embolism: POSITIVE. Large acute pulmonary emboli are at the branch point of the right lower lobar pulmonary artery extending into nearly every if not every segmental branch; similar findings at the branch point of the left lower lobar pulmonary artery; large thrombus burden to the middle lobe; milder acute emboli to both upper lobes. Cardiac thrombus: Negative; no obvious right heart or other cardiac thrombus is seen Pulmonary arteries ectasia: Negative Heart size: Borderline at most Pericardial effusion: Negative Thoracic aortic aneurysm: Negative Aortic dissection: Negative Heart failure change: Negative. No sign of interstitial or alveolar edema. Other: n/a NONVASCULAR MEDIASTINUM: Esophagus: Grossly normal by CT Mediastinal Mass: Negative Hiatal hernia: None LYMPH NODES: No thoracic adenopathy Exam Date/Time: 09/01/2018 15:29 EDT Report LUNGS / AIRSPACES / AIRWAYS: Airways: The trachea and central major airways are clear; no endobronchial filling defect. Lungs / airspaces: 6 mm nodular lesion near the fissure in the lingula, axial 220 was not present on the most recent CT through this level, CT abdomen/pelvis 29 September 2017. Possibility of artifact from atelectasis. Otherwise the lungs are clear. PLEURA: Effusion: Both sides negative Pneumothorax: Both sides negative Other: n/a CHEST WALL: Soft tissues of the chest wall are unremarkable SKELETON: No acute or contributory abnormality UPPER ABDOMEN: The liver is fatty and probably enlarged. An incompletely included cystic upper pole right renal lesion is similar to prior exam. IMPRESSION: EXAM POSITIVE FOR FAIRLY LARGE BURDEN OF ACUTE BILATERAL PULMONARY EMBOLI MOST PRONOUNCED IN THE LOWER LOBES AND THE MIDDLE LOBE, BUT INVOLVING ALL LOBES NO OTHER ACUTE FINDINGS IN THE CHEST INCLUDING NO COMPELLING MORPHOLOGIC CHANGES TO SUGGEST RIGHT HEART STRAIN. NO THORACIC AORTIC ANEURYSM OR DISSECTION. NO ACUTE AIRSPACE DISEASE, ONLY A NODULE VERSUS ARTIFACT FROM ATELECTASIS IN THE LINGULA, WAS NOT PRESENT ON THE MOST RECENT CT THROUGH THIS LEVEL 29 SEPTEMBER 2017. I HAD THE PLEASURE OF COMMUNICATING THESE FINDINGS TO THE EMERGENCY DEPARTMENT OF PRACTITIONER, [facility] SAME DAY 01 SEPTEMBER 2018 AT 1700 HOURS FINAL REPORT Dictated: 09/01/2018 5:06 pm Kristian Souza MD Signed (Electronic Signature): 09/01/2018 5:06 pm Signed by: Kristian Souza MD Technologist: MLL Normal [facility] D-Dimeron 09-01-2018 D-Dimer 3.24 mg/L FEU Critically abnormal <=0.50 [facility] Comment on above: Result Comment: Crit ica Result DIMER:3.24 Called to JAE GANNON at: 13:23 by:MORTEZA Read back by:JAE GANNON Normal D Dimer level indicates no Deep Vein Thrombosis (DVT) or Pulmonary Embolism (PE). Elevated D Dimer level indicates additional studies and clinical assessments are indicated to conclude diagnosis of Deep Vein Thromobsis (DVT) or Pulmonary Embolism (PE). Performed By: #### 2 [id number] #### RAUL RemHemo [address] [place] [address] Glucose POCon 09-01-2018 Glucose [Mass/Vol] 181 mg/dL High 70-99 [facility] Comment on above: Performed By: #### 2 085432 #### RAUL Hematology Automated Subsection [address] [place] [address] PTon 09-01-2018 INR Coag (PPP) [Relative time] 1.1 {INR} Normal 1.0-1.2 [facility] Comment on above: Result Comment: INR Recommended Therapeuptic Ranges: Prophylaxis/treatment of DVT and PE?2.0-3.0 Prevention of systemic embolism?.2.0-3.0 Mechanical prosthetic values?2.5-3.5 CRITICAL VALUES?.>4.0 Performed By: #### 2 295694 #### RAUL [id number] [place] [address] PT Coag (PPP) [Time] 13.6 second(s) Normal 11.6-14.6 [facility] Comment on above: Performed By: #### 2 904863 #### RAUL Briggs[address] [address] TSHon 09-01-2018 TSH Qn 2.40 mcIU/mL Normal 0.30-5.60 [facility] Comment on above: Performed By: #### 2 328565 #### RAUL Briggs[address] [address] Troponin-Ion 09-01-2018 Troponin I.cardiac [Mass/Vol] 0.02 ng/mL Normal .00-.03 [facility] Comment on above: Performed By: #### 2 341992 #### RAUL Briggs[address] [address] eGFRon 09-01-2018 GFR/1.73 sq M predicted among non-blacks MDRD (S/P/Bld) [Vol rate/Area] mL/min/{1.73_m2} Normal [facility] Comment on above: Order Comment: Order Added by Discern Expert. Performed By: #### 2 312180 #### RAUL Shio [address] [place] [address] GFR/1.73 sq M predicted among non-blacks MDRD (S/P/Bld) [Vol rate/Area] 51 mL/min/1.73 m2 Normal [facility] Comment on above: Order Comment: Order Added by Discern Expert. Performed By: #### 2 468383 #### RAUL RemHemo [address] [place] [address] Auto Diffon 08-31-2018 Basophils (Bld) [#/Vol] 0.0 E3/mcL Normal 0.0-0.2 [facility] Comment on above: Order Comment: Order Added by Discern Expert. Performed By: #### 2 986509 #### RAUL BriggsHemo [address] [place] [address] Basophils/100 WBC (Bld) 0.5 % Normal 0.0-2.0 [facility] Comment on above: Order Comment: Order Added by Discern Expert. Performed By: #### 2 174487 #### RAUL RemHemo [address] [place] [address] Eos Absolute 0.2 E3/mcL Normal 0.0-0.7 [facility] Comment on above: Order Comment: Order Added by Discern Expert. Performed By: #### 2 176587 #### RAUL RemHemo [address] [place] [address] Eosinophils/100 WBC (Bld) 2.8 % Normal 0.0-11.0 [facility] Comment on above: Order Comment: Order Added by Discern Expert. Performed By: #### 2 028723 #### RAUL RemHemo [address] [place] [address] Lymphocytes (Bld) [#/Vol] 0.8 E3/mcL Low 1.2-3.4 [facility] Comment on above: Order Comment: Order Added by Discern Expert. Performed By: #### 2 440754 #### RAUL RemHemo [address] [place] [address] Lymphocytes/100 WBC (Bld) 12.2 % Low 20.0-55.0 [facility] Comment on above: Order Comment: Order Added by Discern Expert. Performed By: #### 2 837426 #### RAUL RemHemo [address] [place] [address] [place] Absolute 0.5 E3/mcL Normal 0.0-0.7 [facility] Comment on above: Order Comment: Order Added by Discern Expert. Performed By: #### 2 858916 #### RAUL RemHemo [address] [place] [address] Monocytes/100 WBC (Bld) 7.4 % Normal 0.0-10.0 [facility] Comment on above: Order Comment: Order Added by Discern Expert. Performed By: #### 2 555393 #### RAUL RemHemo [address] [place] [address] Neutro Absolute 4.8 E3/mcL Normal 1.4-6.5 [facility] Comment on above: Order Comment: Order Added by Discern Expert. Performed By: #### 2 966356 #### RAUL RemHemo [address] [place] [address] Neutro Auto 77.1 % High 37.0-75.0 [facility] Comment on above: Order Comment: Order Added by Discern Expert. Performed By: #### 2 011039 #### RAUL RemHemo [address] [place] [address] BMPon 08-31-2018 Anion gap [Moles/Vol] 15 mmol/L Normal 10-[address] [facility] Comment on above: Performed By: #### 2 171118 #### RAUL RemChem [address] [place] [address] Calcium [Mass/Vol] 9.4 mg/dL Normal 8.6-10.3 [facility] Comment on above: Performed By: #### 2 181079 #### RAUL RemChem [address] [place] [address] Chloride [Moles/Vol] 104 mmol/L Normal 98-107 [facility] Comment on above: Performed By: #### 2 784434 #### RAUL RemChem [address] [place] [address] CO2 [Moles/Vol] 22.0 mmol/L Normal 21.0-32.0 [facility] Comment on above: Performed By: #### 2 044523 #### RAUL RemChem [address] [place] [address] Creatinine [Mass/Vol] 1.3 mg/dL Normal 0.6-1.[address] [facility] Comment on above: Performed By: #### 2 212992 #### RAUL BriggsChem [address] [place] [address] Glucose [Mass/Vol] 184 mg/dL High 70-99 [facility] Comment on above: Performed By: #### 2 963319 #### RAUL RemChem [facility] [place] [address] Potassium [Moles/Vol] 4.4 mmol/L Normal 3.5-5.[address] [facility] Comment on above: Performed By: #### 2 642990 #### RAUL RemChem [facility] [place] [address] Sodium [Moles/Vol] 137 mmol/L Normal 136-145 [facility] Comment on above: Performed By: #### 2 396482 #### RAUL BriggsChem [facility] [place] [address] Urea nitrogen [Mass/Vol] 25 mg/dL High 6-23 [facility] Comment on above: Performed By: #### 2 509311 #### RAUL Cox [address] [place] [address] Urea nitrogen/Creatinine [Mass ratio] 19.2 ratio Normal 5.4-30.0 [facility] Comment on above: Performed By: #### 2 141778 #### RAUL Cox [address] [place] [address] BNP.on 08-31-2018 Natriuretic peptide B (Bld) [Mass/Vol] 42 pg/mL Normal <=500 [facility] Comment on above: Result Comment: Noti ce: Effective 04/15/2017 the methodology for BNP testing has changed. BNP values less than or equal to 100 pg/mL is considered normal for patients without CHF.The decision threshold was determined by the 95% confidence limit of BNP concentration in the non-CHF population age 55 and older.It is recommended that a new baseline value be established using the new method if monitoring patient's BNP level. Performed By: #### C [id number] #### RAUL BriggsHC [employer] [facility] [place] [address] CBC w/ Auto Diffon 8 Erythrocyte distribution width (RBC) [Ratio] 13.3 % Normal 11.5-14.5 [facility] Comment on above: Performed By: #### 2 [id number] #### RAUL RemHemo [address] [place] [address] Hematocrit (Bld) [Volume fraction] 42.4 % Normal 42.0-52.0 [facility] Comment on above: Performed By: #### 2 073218 #### RAUL RemHemo [address] [place] [address] Hemoglobin (Bld) [Mass/Vol] 14.8 g/dL Normal 13.5-18.0 [facility] Comment on above: Performed By: #### 2 876022 #### RAUL RemHemo [address] [place] [address] MCH (RBC) [Entitic mass] 36.0 pg High 27.0-31.0 [facility] Comment on above: Performed By: #### 2 [id number] #### RAUL RemHemo [address] [place] [address] 40792 MCHC (RBC) [Mass/Vol] 35.0 g/dL Normal 33.0-37.[address] [facility] Comment on above: Performed By: #### 2 [id number] #### RAUL RemHemo [address] [place] [address] 89752 MCV (RBC) [Entitic vol] 102.9 fL High 78.0-100.0 [facility] Comment on above: Performed By: #### 2 [id number] #### RAUL RemHemo [address] [place] [address] Platelet mean volume (Bld) [Entitic vol] 8.0 fL Normal 7.4-11.0 [facility] Comment on above: Performed By: #### 2 [id number] #### RAUL RemHemo [address] [place] [address] Platelets (Bld) [#/Vol] 165 E3/mcL Normal 130-400 [facility] Comment on above: Performed By: #### 2 [id number] #### RAUL RemHemo [address] [place] [address] RBC (Bld) [#/Vol] 4.12 E6/mcL Normal 3.90-6.10 [facility] Comment on above: Performed By: #### 2 [id number] #### RAUL RemHemo [address] [place] [address] WBC (Bld) [#/Vol] 6.2 E3/mcL Normal 3.6-11.0 [facility] Comment on above: Performed By: #### 2 [id number] #### RAUL RemHemo [address] [place] [address] PTon 08-31-2018 INR Coag (PPP) [Relative time] 1.1 {INR} Normal 1.0-1.2 [facility] Comment on above: Result Comment: INR Recommended Therapeuptic Ranges: Prophylaxis/treatment of DVT and PE?2.0-3.0 Prevention of systemic embolism?.2.0-3.0 Mechanical prosthetic values?2.5-3.5 CRITICAL VALUES?.>4.0 Performed By: #### 2 [id number] #### RAUL [facility] [employer] [address] [place] [address] PT Coag (PPP) [Time] 13.4 second(s) Normal 11.6-14.6 [facility] Comment on above: Performed By: #### 2 [id number] #### RAUL Hematology Automated [employer]section [facility] [place] [address] PTTon 08-31-2018 aPTT Coag (Bld) [Time] 27.1 second(s) Normal 23.2-36.4 [facility] Comment on above: Performed By: #### 2 [id number] #### RAUL [facility] [employer] [address] [place] [address] PTT Control Ratioon 08-31-20 18 PTT Ratio 0.9 ratio Normal 0.8-1.2 [facility] Comment on above: Order Comment: Order added by Discern Expert. Performed By: #### 8 [id number] #### RAUL Hemat[facility] [employer] [address] [place] [address] Troponin-Ion 10-30-2018 Troponin I.cardiac [Mass/Vol] 0.03 ng/mL Normal .00-.03 [facility] Comment on above: Performed By: #### 2 [id number] #### RAUL [employer] [facility] [place] [address] XR Chest 2 Viewson 8 XR Chest 2 Views Exam Date/Time: 08/31/2018 12:14 EDT Reason for Exam: Respiratory Distress Report STUDY: XR Chest 2 Views; 08/31/2018 12:14 pm INDICATION: Respiratory Distress. COMPARISON: None. ACCESSION NUMBER(S): [id number] ORDERING CLINICIAN: Judah Mcdaniels FINDINGS: PA and lateral views of the chest were obtained. Cardiac monitoring leads are seen over the chest. No focal infiltrate, pleural effusion or pneumothorax is identified. The cardiac silhouette is within normal limits for size. Mild discogenic degenerative changes are seen throughout the thoracic spine. IMPRESSION: No focal infiltrate or pneumothorax. FINAL REPORT Dictated: 08/31/2018 12:34 pm Yazan Hernandez MD Signed (Electronic Signature): 08/31/2018 12:34 pm Signed by: Yazan Hernandez MD Technologist: LEWIS Normal [facility] eGFRon 08-31-2018 GFR/1.73 sq M predicted among non-blacks MDRD (S/P/Bld) [Vol rate/Area] mL/min/{1.73_m2} [facility] Comment on above: Order Comment: Order added by Discern Expert. Performed By: #### 1 [id number] #### RAUL [facility] [place] [address] GFR/1.73 sq M predicted among non-blacks MDRD (S/P/Bld) [Vol rate/Area] 52 mL/min/1.73 m2 [facility] Comment on above: Order Comment: Order added by Frank Expert. Performed By: #### 1 [id number] #### RAUL [employer] [address] [place] [address] SURGon 08-04-2018 SURG Patient Name: JEWEL CHAVES Source A. Skin, Left Chest B. 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 The biopsy margins are negative for tumor. B. Neurofibroma. JF/arj Gross Description A. The specimen received in formalin is a can fragment measuring 1.2 x 0.8 x 0.6 cm. Margins are inked black. Serially sectioned. Totally submitted in one cassette. B. The specimen received in formalin is a grayish-can and purple fragment measuring 1.2 x 1.1 x 1.4 cm. Margins are inked black. Serially sectioned. Totally submitted in one cassette. CS/arj (JSF/arj) Electronically Signed By Eddie Carrillo MD , Pathologist (Case signed 08/06/2018) [facility] SURGon 02-10-2018 SURG Patient Name: JEWEL CHAVES Source A. Skin, Right Scalp B. Skin, Left Scalp C. Skin, Left Alevism Clinical History HX OF SCC Diagnosis A. Irritated actinic keratosis. B. 1. Irritated actinic keratosis. 2. Focal acute and chronic folliculitis. C. Seborrheic keratosis. HW Gross Description A. The specimen received in formalin is a fragment measuring 0.9 x 0.8 x 0.3 cm. Serially sectioned. Totally submitted in one cassette. B. The specimen received in formalin is a fragment measuring 1.8 x 1.8 x 0.2 cm. Serially sectioned. Totally submitted in one cassette. C. The specimen received in formalin is a fragment measuring 1.3 x 0.8 x 0.3 cm. Serially sectioned. Totally submitted in one cassette. DS/arj (NATHEN/arj) Electronically Signed By Huan Juarez MD , Pathologist (Case signed 02/12/2018) [facility] No Panel Information [facility] Vital Signs Date Time Vital Sign Value Performing Clinician Facility 03-31-2025 10:32-0400 Diastolic blood pressure 76 mm[Hg] Robert Mortensen Jr., DPM Work Phone: [facility] 03-31-2025 10:32-0400 Heart rate 75 /min Robert Mortensen Jr., DPM Work Phone: [facility] 03-31-2025 10:32-0400 Systolic blood pressure 139 mm[Hg] Robert Mortensen Jr., DPM Work Phone: [facility] 03-28-2025 11:33-0400 Body height 172.[address] Palmira العراقي MD Work Phone: [facility] 03-28-2025 11:33-0400 Body mass index (BMI) [Ratio] 34.2 kg/m2 Dr. Palmira العراقي MD Work Phone: [facility] 03-28-2025 11:33-0400 Body weight 102.[address] Palmira العراقي MD Work Phone: [facility] 03-28-2025 11:33-0400 Diastolic blood pressure 73 mm[Hg] Dr. Palmira العراقي MD Work Phone: [facility] 03-28-2025 11:33-0400 Heart rate 71 /min Dr. Palmira العراقي MD Work Phone: [facility] 03-28-2025 11:33-0400 SaO2% (BldA) [Mass fraction] 93 % Dr. Palmira العراقي MD Work Phone: [facility] 03-28-2025 11:33-0400 Systolic blood pressure 134 mm[Hg] Dr. Palmira العراقي MD Work Phone: [facility] 03-21-2025 10:27-0400 Body height 172.7 cm Vianney Judge MD Work Phone: [facility] 03-21-2025 10:27-0400 Body mass index (BMI) [Ratio] 33.94 kg/m2 Vianney Judge MD Work Phone: [facility] 03-21-2025 10:27-0400 Body weight 101.24 kg Vianney Judge MD Work Phone: [facility] 03-21-2025 10:27-0400 Diastolic blood pressure 58 mm[Hg] Vianney Judge MD Work Phone: [facility] 03-21-2025 10:27-0400 Heart rate 77 /min Vianney Judge MD Work Phone: [facility] 03-21-2025 10:27-0400 SaO2% (BldA) [Mass fraction] 93 % Vianney Judge MD Work Phone: [facility] 03-21-2025 10:27-0400 Systolic blood pressure 124 mm[Hg] Vianney Judge MD Work Phone: [facility] 02-28-2025 11:10-0400 Body mass index (BMI) [Ratio] 33.91 kg/m2 Palmira العراقي MD Work Phone: [facility] 02-28-2025 11:10-0400 Body weight 101.15 kg Palmira العراقي MD Work Phone: [facility] 02-28-2025 11:10-0400 Diastolic blood pressure 56 mm[Hg] Palmira العراقي MD Work Phone: [facility] 02-28-2025 11:10-0400 Heart rate 77 /min Palmira العراقي MD Work Phone: [facility] 02-28-2025 11:10-0400 SaO2% (BldA) [Mass fraction] 94 % Palmira العراقي MD Work Phone: [facility] 02-28-2025 11:10-0400 Systolic blood pressure 128 mm[Hg] Palmira العراقي MD Work Phone: [facility] 02-27-2025 10:57-0400 Body height 172.7 cm Elke OLIVIER DNP Work Phone: [facility] 02-27-2025 10:57-0400 Body mass index (BMI) [Ratio] 34 kg/m2 Elke OLIVIER DNP Work Phone: [facility] 02-27-2025 10:57-0400 Body weight 101.42 kg Elke Young BUSINESS ANALYTICS ANALYST-PRECISION THREAD GRINDER OPERATOR, DNP Work Phone: [facility] 02-27-2025 10:57-0400 Diastolic blood pressure 52 mm[Hg] Elke Martin APRN-PRECISION THREAD GRINDER OPERATOR, DNP Work Phone: [facility] 02-27-2025 10:57-0400 Heart rate 65 /min Elke Martin BUSINESS ANALYTICS ANALYST-PRECISION THREAD GRINDER OPERATOR, DNP Work Phone: [facility] 02-27-2025 10:57-0400 Systolic blood pressure 118 mm[Hg] Elke Martin BUSINESS ANALYTICS ANALYST-PRECISION THREAD GRINDER OPERATOR, DNP Work Phone: [facility] 02-03-2025 11:40-0400 SaO2% (BldA) [Mass fraction] 98 % Ravi Bills DO Work Phone: [facility] 02-03-2025 11:00-0400 Body temperature 96.8 [degF] Ravi Bills DO Work Phone: [facility] 02-03-2025 11:00-0400 Diastolic blood pressure 74 mm[Hg] Ravi Bills DO Work Phone: [facility] 02-03-2025 11:00-0400 Heart rate 71 /min Ravi Bills DO Work Phone: [facility] 02-03-2025 11:00-0400 Respiratory rate 18 /min Ravi Bills DO Work Phone: [facility] 02-03-2025 11:00-0400 Systolic blood pressure 133 mm[Hg] Ravi Bills DO Work Phone: [facility] 01-30-2025 21:15-0400 Body height 172.7 cm Ravi Bills DO Work Phone: [facility] 01-30-2025 21:15-0400 Body mass index (BMI) [Ratio] 33.99 kg/m2 Ravi Bills DO Work Phone: [facility] 01-30-2025 21:15-0400 Body weight 101.4 kg Ravi Bills DO Work Phone: [facility] 01-18-2025 13:06-0400 Body mass index (BMI) [Ratio] 35.58 kg/m2 Yisel Prado MD Work Phone: [facility] 01-18-2025 13:06-0400 Body temperature 97 [degF] Yisel Prado MD Work Phone: [facility] 01-18-2025 13:06-0400 Body weight 103.06 kg Yisel Prado MD Work Phone: [facility] 01-18-2025 13:06-0400 Diastolic blood pressure 69 mm[Hg] Yisel Prado MD Work Phone: [facility] 01-18-2025 13:06-0400 Heart rate 67 /min Yisel Prado MD Work Phone: [facility] 01-18-2025 13:06-0400 Respiratory rate 16 /min Yisel Prado MD Work Phone: [facility] 01-18-2025 13:06-0400 SaO2% (BldA) [Mass fraction] 93 % Yisel Prado MD Work Phone: [facility] 01-18-2025 13:06-0400 Systolic blood pressure 137 mm[Hg] Yisel Prado MD Work Phone: [facility] 01-13-2025 10:03-0400 Body height 170.2 cm Antione Harp DO Work Phone: [facility] 01-13-2025 10:03-0400 Body mass index (BMI) [Ratio] 35.11 kg/m2 Antione Harp DO Work Phone: [facility] 01-13-2025 10:03-0400 Body temperature 97.7 [degF] Antione Harp DO Work Phone: [facility] 01-13-2025 10:03-0400 Body weight 101.7 kg Antione Piasecki DO Work Phone: [facility] 01-13-2025 10:03-0400 Diastolic blood pressure 55 mm[Hg] Antione Piasecki DO Work Phone: [facility] 01-13-2025 10:03-0400 Heart rate 66 /min Antione Piasecki DO Work Phone: [facility] 01-13-2025 10:03-0400 SaO2% (BldA) [Mass fraction] 96 % Antione Piasecki DO Work Phone: [facility] Comment on above: #2 POC 01-13-2025 10:03-0400 Systolic blood pressure 93 mm[Hg] Antione Piasecki DO Work Phone: [facility] 01-03-2025 10:38-0500 Body height 170.2 cm Palmira العراقي MD Work Phone: [facility] 01-03-2025 10:38-0500 Body mass index (BMI) [Ratio] 35.43 kg/m2 Palmira العراقي MD Work Phone: [facility] 01-03-2025 10:38-0500 Body weight 102.6 kg Palmira العراقي MD Work Phone: [facility] 01-03-2025 10:38-0500 Diastolic blood pressure 76 mm[Hg] Palmira العراقي MD Work Phone: [facility] 01-03-2025 10:38-0500 Heart rate 80 /min Palmira العراقي MD Work Phone: [facility] 01-03-2025 10:38-0500 SaO2% (BldA) [Mass fraction] 93 % Palmira العراقي MD Work Phone: [facility] 01-03-2025 10:38-0500 Systolic blood pressure 124 mm[Hg] Palmira العراقي MD Work Phone: [facility] 01-02-2025 08:44-0500 Body mass index (BMI) [Ratio] 35.68 kg/m2 Elaine Betts BUSINESS ANALYTICS ANALYST-PRECISION THREAD GRINDER OPERATOR Work Phone: [facility] 01-02-2025 08:44-0500 Body temperature 96.4 [degF] Elaine Betts BUSINESS ANALYTICS ANALYST-PRECISION THREAD GRINDER OPERATOR Work Phone: [facility] 01-02-2025 08:44-0500 Body weight 103.33 kg Elaine Betts BUSINESS ANALYTICS ANALYST-PRECISION THREAD GRINDER OPERATOR Work Phone: [facility] 01-02-2025 08:44-0500 Diastolic blood pressure 55 mm[Hg] Elaine Betts BUSINESS ANALYTICS ANALYST-PRECISION THREAD GRINDER OPERATOR Work Phone: [facility] 01-02-2025 08:44-0500 Heart rate 68 /min Elaine Betts BUSINESS ANALYTICS ANALYST-PRECISION THREAD GRINDER OPERATOR Work Phone: [facility] 01-02-2025 08:44-0500 Respiratory rate 20 /min Elaine Betts BUSINESS ANALYTICS ANALYST-PRECISION THREAD GRINDER OPERATOR Work Phone: [facility] 01-02-2025 08:44-0500 SaO2% (BldA) [Mass fraction] 94 % Elaine Betts BUSINESS ANALYTICS ANALYST-PRECISION THREAD GRINDER OPERATOR Work Phone: [facility] 01-02-2025 08:44-0500 Systolic blood pressure 126 mm[Hg] Elaine Betts BUSINESS ANALYTICS ANALYST-PRECISION THREAD GRINDER OPERATOR Work Phone: [facility] 12-30-2024 10:28-0500 Body temperature 98.1 [degF] Robert Mortensen Jr. DPM Work Phone: [facility] 12-30-2024 10:28-0500 Diastolic blood pressure 69 mm[Hg] Robert Mortensen Jr., DPM Work Phone: [facility] 12-30-2024 10:28-0500 Heart rate 74 /min Robert Mortensen Jr., DPM Work Phone: [facility] 12-30-2024 10:28-0500 Systolic blood pressure 133 mm[Hg] Robert Mortensen Jr., DPM Work Phone: [facility] 12-15-2024 09:02-0500 Body mass index (BMI) [Ratio] 34.8 kg/m2 Dr. Palmira العراقي MD Work Phone: [facility] 12-15-2024 09:02-0500 Body weight 103.[address] Palmira العراقي MD Work Phone: [facility] 12-15-2024 09:02-0500 Diastolic blood pressure 57 mm[Hg] Dr. Palmira العراقي MD Work Phone: [facility] 12-15-2024 09:02-0500 Heart rate 87 /min Dr. Palmira العراقي MD Work Phone: [facility] 12-15-2024 09:02-0500 SaO2% (BldA) [Mass fraction] 90 % Dr. Palmira العراقي MD Work Phone: [facility] 12-15-2024 09:02-0500 Systolic blood pressure 137 mm[Hg] Dr. Palmira العراقي MD Work Phone: [facility] 11-16-2024 12:38-0500 Diastolic blood pressure 47 mm[Hg] Mariah Can MD Work Phone: [facility] 11-16-2024 12:38-0500 Heart rate 84 /min Mariah Can MD Work Phone: [facility] 11-16-2024 12:38-0500 Respiratory rate 16 /min Mariah Can MD Work Phone: [facility] 11-16-2024 12:38-0500 SaO2% (BldA) [Mass fraction] 91 % Mariah Can MD Work Phone: [facility] 11-16-2024 12:38-0500 Systolic blood pressure 103 mm[Hg] Mariah Can MD Work Phone: [facility] 11-03-2024 10:45-0500 Body height 170.2 cm Elke Martin APRN-PRECISION THREAD GRINDER OPERATOR, DNP Work Phone: [facility] 11-03-2024 10:45-0500 Body mass index (BMI) [Ratio] 35.46 kg/m2 Elke Martin BUSINESS ANALYTICS ANALYST-PRECISION THREAD GRINDER OPERATOR, DNP Work Phone: [facility] 11-03-2024 10:45-0500 Body weight 102.69 kg Elke Calvin ADEN-PRECISION THREAD GRINDER OPERATOR, DNP Work Phone: [facility] 11-03-2024 10:45-0500 Diastolic blood pressure 56 mm[Hg] Elke Calvin ADEN-LIZZ, DNP Work Phone: [facility] 11-03-2024 10:45-0500 Heart rate 74 /min Elke Calvin BUSINESS ANALYTICS ANALYST-LIZZ, DNP Work Phone: [facility] 11-03-2024 10:45-0500 Systolic blood pressure 122 mm[Hg] Elke Calvin ADEN-PRECISION THREAD GRINDER OPERATOR, DNP Work Phone: [facility] 10-31-2024 15:57-0500 Body height 170.2 cm Palmira العراقي MD Work Phone: [facility] 10-31-2024 15:57-0500 Body mass index (BMI) [Ratio] 35.52 kg/m2 Palmira العراقي MD Work Phone: [facility] 10-31-2024 15:57-0500 Body weight 102.88 kg Palmira العراقي MD Work Phone: [facility] 10-31-2024 15:57-0500 Diastolic blood pressure 74 mm[Hg] Palmira العراقي MD Work Phone: [facility] 10-31-2024 15:57-0500 Heart rate 93 /min Palmira العراقي MD Work Phone: [facility] 10-31-2024 15:57-0500 SaO2% (BldA) [Mass fraction] 94 % Palmira العراقي MD Work Phone: [facility] 10-31-2024 15:57-0500 Systolic blood pressure 126 mm[Hg] Palmira العراقي MD Work Phone: [facility] 10-24-2024 08:37-0500 Body mass index (BMI) [Ratio] 36.15 kg/m2 Elaineevon Betts BUSINESS ANALYTICS ANALYST-PRECISION THREAD GRINDER OPERATOR Work Phone: [facility] 10-24-2024 08:37-0500 Body temperature 97 [degF] Elaine Betts BUSINESS ANALYTICS ANALYST-PRECISION THREAD GRINDER OPERATOR Work Phone: [facility] 10-24-2024 08:37-0500 Body weight 104.69 kg Elaine Betts BUSINESS ANALYTICS ANALYST-PRECISION THREAD GRINDER OPERATOR Work Phone: [facility] 10-24-2024 08:37-0500 Diastolic blood pressure 69 mm[Hg] Elaine Betts BUSINESS ANALYTICS ANALYST-PRECISION THREAD GRINDER OPERATOR Work Phone: [facility] 10-24-2024 08:37-0500 Heart rate 78 /min Elaine Betts BUSINESS ANALYTICS ANALYST-PRECISION THREAD GRINDER OPERATOR Work Phone: [facility] 10-24-2024 08:37-0500 Respiratory rate 16 /min Elaine Betts BUSINESS ANALYTICS ANALYST-PRECISION THREAD GRINDER OPERATOR Work Phone: [facility] 10-24-2024 08:37-0500 SaO2% (BldA) [Mass fraction] 93 % Elaine Betts BUSINESS ANALYTICS ANALYST-PRECISION THREAD GRINDER OPERATOR Work Phone: [facility] 10-24-2024 08:37-0500 Systolic blood pressure 166 mm[Hg] Elaine Betts BUSINESS ANALYTICS ANALYST-PRECISION THREAD GRINDER OPERATOR Work Phone: [facility] 10-18-2024 11:25-0500 Body height 170.2 cm Palmira العراقي MD Work Phone: [facility] 10-18-2024 11:25-0500 Body mass index (BMI) [Ratio] 36.4 kg/m2 Palmira العراقي MD Work Phone: [facility] 10-18-2024 11:25-0500 Body weight 105.43 kg Palmira العراقي MD Work Phone: [facility] 10-18-2024 11:25-0500 Diastolic blood pressure 80 mm[Hg] Palmira العراقي MD Work Phone: 9(639)655-4746[address] [place] [address] 10-18-2024 11:25-0500 Heart rate 80 /min Palmira العراقي MD Work Phone: 8(020)404-[address] [place] [address] 10-18-2024 11:25-0500 Systolic blood pressure 124 mm[Hg] Palmira العراقي MD Work Phone: 2(712)260-157538 [place] [address] 10-03-2024 13:43-0500 Body height 170.2 cm Palmira العراقي MD Work Phone: 4(032)966-705338 [place] [address] 10-03-2024 13:43-0500 Body mass index (BMI) [Ratio] 35.98 kg/m2 Palmira العراقي MD Work Phone: 6(033)460-429738 [place] [address] 10-03-2024 13:43-0500 Body weight 104.19 kg Palmira العراقي MD Work Phone: [facility] 10-03-2024 13:43-0500 Diastolic blood pressure 64 mm[Hg] Palmira العراقي MD Work Phone: [facility] 10-03-2024 13:43-0500 Heart rate 81 /min Palmira العراقي MD Work Phone: [facility] 10-03-2024 13:43-0500 SaO2% (BldA) [Mass fraction] 90 % Palmira العراقي MD Work Phone: [facility] 10-03-2024 13:43-0500 Systolic blood pressure 128 mm[Hg] Palmira العراقي MD Work Phone: 5(009)779-841338 [place] [address] 09-23-2024 14:33-0500 Body temperature 97.5 [degF] Robert Tavarezgerman Velez., DPM Work Phone: [facility] 09-23-2024 14:33-0500 Diastolic blood pressure 65 mm[Hg] Robert Mortensen Jr., DPM Work Phone: [facility] 09-23-2024 14:33-0500 Heart rate 81 /min Robert Rodriguezn Jr., DPM Work Phone: [facility] 09-23-2024 14:33-0500 Systolic blood pressure 115 mm[Hg] Robert Rodriguezn Jr., DPM Work Phone: [facility] 09-23-2024 10:27-0500 Body mass index (BMI) [Ratio] 35.93 kg/m2 Elaine Betts BUSINESS ANALYTICS ANALYST-PRECISION THREAD GRINDER OPERATOR Work Phone: [facility] 09-23-2024 10:27-0500 Body temperature 97.5 [degF] Elaineevon Betts BUSINESS ANALYTICS ANALYST-PRECISION THREAD GRINDER OPERATOR Work Phone: [facility] 09-23-2024 10:27-0500 Body weight 104.06 kg Elaine Betts BUSINESS ANALYTICS ANALYST-PRECISION THREAD GRINDER OPERATOR Work Phone: [facility] 08-26-2024 11:24-0400 Body mass index (BMI) [Ratio] 36.29 kg/m2 Elaine Betts BUSINESS ANALYTICS ANALYST-PRECISION THREAD GRINDER OPERATOR Work Phone: [facility] 08-26-2024 11:24-0400 Body temperature 95.5 [degF] Elaineevon Betts BUSINESS ANALYTICS ANALYST-PRECISION THREAD GRINDER OPERATOR Work Phone: [facility] 08-26-2024 11:24-0400 Body weight 105.1 kg Elaineevon Betts BUSINESS ANALYTICS ANALYST-PRECISION THREAD GRINDER OPERATOR Work Phone: [facility] 08-26-2024 11:24-0400 Diastolic blood pressure 68 mm[Hg] Elaine John BUSINESS ANALYTICS ANALYST-PRECISION THREAD GRINDER OPERATOR Work Phone: [facility] 08-26-2024 11:24-0400 Heart rate 72 /min Elaine Betts BUSINESS ANALYTICS ANALYST-PRECISION THREAD GRINDER OPERATOR Work Phone: [facility] 08-26-2024 11:24-0400 Respiratory rate 18 /min Elaine Betts BUSINESS ANALYTICS ANALYST-PRECISION THREAD GRINDER OPERATOR Work Phone: [facility] 08-26-2024 11:24-0400 SaO2% (BldA) [Mass fraction] 91 % Elaine Betts BUSINESS ANALYTICS ANALYST-PRECISION THREAD GRINDER OPERATOR Work Phone: [facility] 08-26-2024 11:24-0400 Systolic blood pressure 132 mm[Hg] Elaine Betts BUSINESS ANALYTICS ANALYST-PRECISION THREAD GRINDER OPERATOR Work Phone: [facility] 08-04-2024 10:53-0400 Body height 170.2 cm Elke Calvin ADEN-LIZZ, DNP Work Phone: [facility] 08-04-2024 10:53-0400 Body mass index (BMI) [Ratio] 36.46 kg/m2 lEke Martin BUSINESS ANALYTICS ANALYST-PRECISION THREAD GRINDER OPERATOR, DNP Work Phone: [facility] 08-04-2024 10:53-0400 Body weight 105.6 kg Elke Martin APRN-LIZZ, DNP Work Phone: [facility] 08-04-2024 10:53-0400 Diastolic blood pressure 56 mm[Hg] Elke Martin APRN-LIZZ, DNP Work Phone: [facility] 08-04-2024 10:53-0400 Heart rate 74 /min Elke Martin APRN-LIZZ, DNP Work Phone: [facility] 08-04-2024 10:53-0400 Systolic blood pressure 130 mm[Hg] Elke Martin APRN-PRECISION THREAD GRINDER OPERATOR, DNP Work Phone: [facility] 07-29-2024 12:54-0400 Body mass index (BMI) [Ratio] 36.18 kg/m2 Yisel Prado MD Work Phone: [facility] 07-29-2024 12:54-0400 Body temperature 97.2 [degF] Yisel Prado MD Work Phone: [facility] 07-29-2024 12:54-0400 Body weight 104.78 kg Yisel Prado MD Work Phone: [facility] 07-29-2024 12:54-0400 Diastolic blood pressure 69 mm[Hg] Yisel Prado MD Work Phone: [facility] 07-29-2024 12:54-0400 Heart rate 71 /min Yisel Prado MD Work Phone: [facility] 07-29-2024 12:54-0400 Respiratory rate 20 /min Yisel Prado MD Work Phone: [facility] 07-29-2024 12:54-0400 SaO2% (BldA) [Mass fraction] 90 % Yisel Prado MD Work Phone: [facility] 07-29-2024 12:54-0400 Systolic blood pressure 125 mm[Hg] Yisel Prado MD Work Phone: [facility] 07-12-2024 10:01-0400 Body height 170.2 cm Antione Harp DO Work Phone: [facility] 07-12-2024 10:01-0400 Body mass index (BMI) [Ratio] 36.02 kg/m2 Antione Harp DO Work Phone: [facility] 07-12-2024 10:01-0400 Body temperature 97.5 [degF] Antione Harp DO Work Phone: [facility] 07-12-2024 10:01-0400 Body weight 104.33 kg Antione Harp DO Work Phone: [facility] 07-12-2024 10:01-0400 Diastolic blood pressure 66 mm[Hg] Antione Harp DO Work Phone: [facility] 07-12-2024 10:01-0400 Heart rate 77 /min Antione Harp DO Work Phone: [facility] 07-12-2024 10:01-0400 SaO2% (BldA) [Mass fraction] 95 % Antione Harp DO Work Phone: [facility] 07-12-2024 10:01-0400 Systolic blood pressure 131 mm[Hg] Antione Harp DO Work Phone: [facility] 07-01-2024 12:42-0400 Body mass index (BMI) [Ratio] 36.15 kg/m2 Yisel Prado MD Work Phone: [facility] 07-01-2024 12:42-0400 Body temperature 97 [degF] Yisel Prado MD Work Phone: [facility] 07-01-2024 12:42-0400 Body weight 104.69 kg Yisel Prado MD Work Phone: [facility] 07-01-2024 12:42-0400 Diastolic blood pressure 63 mm[Hg] Yisel Prado MD Work Phone: [facility] 07-01-2024 12:42-0400 Heart rate 72 /min Yisel Prado MD Work Phone: [facility] 07-01-2024 12:42-0400 Respiratory rate 16 /min Yisel Prado MD Work Phone: [facility] 07-01-2024 12:42-0400 SaO2% (BldA) [Mass fraction] 93 % Yisel Prado MD Work Phone: [facility] 07-01-2024 12:42-0400 Systolic blood pressure 149 mm[Hg] Yisel Prado MD Work Phone: [facility] 06-17-2024 10:56-0400 Body temperature 98.4 [degF] Robert Mortensen Jr., DPM Work Phone: [facility] 06-17-2024 10:56-0400 Diastolic blood pressure 65 mm[Hg] Robert Mortensen Jr., DPM Work Phone: [facility] 06-17-2024 10:56-0400 Heart rate 75 /min Robert Mortensen Jr., DPM Work Phone: [facility] 06-17-2024 10:56-0400 Systolic blood pressure 137 mm[Hg] Robert Mortensen Jr., DPM Work Phone: [facility] 05-20-2024 12:57-0400 Body mass index (BMI) [Ratio] 36.43 kg/m2 Yisel Prado MD Work Phone: [facility] 05-20-2024 12:57-0400 Body temperature 96.8 [degF] Yisel Prado MD Work Phone: [facility] 05-20-2024 12:57-0400 Body weight 105.51 kg Yisel Prado MD Work Phone: [facility] 05-20-2024 12:57-0400 Diastolic blood pressure 64 mm[Hg] Yisel Prado MD Work Phone: [facility] 05-20-2024 12:57-0400 Heart rate 73 /min Yisel Prado MD Work Phone: [facility] 05-20-2024 12:57-0400 Respiratory rate 16 /min Yisel Prado MD Work Phone: [facility] 05-20-2024 12:57-0400 SaO2% (BldA) [Mass fraction] 92 % Yisel Prado MD Work Phone: [facility] 05-20-2024 12:57-0400 Systolic blood pressure 153 mm[Hg] Yisel Prado MD Work Phone: [facility] 05-20-2024 08:57-0400 Body height 170.2 cm Palmira العراقي MD Work Phone: [facility] 05-20-2024 08:57-0400 Body mass index (BMI) [Ratio] 36.12 kg/m2 Palmira العراقي MD Work Phone: [facility] 05-20-2024 08:57-0400 Body weight 104.6 kg Palmira العراقي MD Work Phone: [facility] 05-20-2024 08:57-0400 Diastolic blood pressure 52 mm[Hg] Palmira العراقي MD Work Phone: [facility] 05-20-2024 08:57-0400 Heart rate 69 /min Palmira العراقي MD Work Phone: [facility] 05-20-2024 08:57-0400 SaO2% (BldA) [Mass fraction] 93 % Palmira العراقي MD Work Phone: [facility] 05-20-2024 08:57-0400 Systolic blood pressure 116 mm[Hg] Palmira العراقي MD Work Phone: [facility] 04-08-2024 11:51-0400 Body mass index (BMI) [Ratio] 36.37 kg/m2 Yisel Prado MD Work Phone: [facility] 04-08-2024 11:51-0400 Body temperature 97.2 [degF] Yisel Prado MD Work Phone: [facility] 04-08-2024 11:51-0400 Body weight 105.33 kg Yisel Prado MD Work Phone: [facility] 04-08-2024 11:51-0400 Diastolic blood pressure 69 mm[Hg] Yisel Pardo MD Work Phone: [facility] 04-08-2024 11:51-0400 Heart rate 61 /min Yisel Prado MD Work Phone: [facility] 04-08-2024 11:51-0400 Respiratory rate 16 /min Yisel Prado MD Work Phone: [facility] 04-08-2024 11:51-0400 SaO2% (BldA) [Mass fraction] 95 % Yisel Prado MD Work Phone: [facility] 04-08-2024 11:51-0400 Systolic blood pressure 137 mm[Hg] Yisel Prado MD Work Phone: [facility] 03-31-2024 14:04-0400 Body height 170.2 cm Palmira العراقي MD Work Phone: [facility] 03-31-2024 14:04-0400 Body mass index (BMI) [Ratio] 36.52 kg/m2 Palmira العراقي MD Work Phone: [facility] 03-31-2024 14:04-0400 Body weight 105.78 kg Palmira العراقي MD Work Phone: [facility] 03-31-2024 14:04-0400 Diastolic blood pressure 54 mm[Hg] Palmira العراقي MD Work Phone: [facility] 03-31-2024 14:04-0400 Heart rate 84 /min Palmira العراقي MD Work Phone: [facility] 03-31-2024 14:04-0400 SaO2% (BldA) [Mass fraction] 91 % Palmira العراقي MD Work Phone: [facility] 03-31-2024 14:04-0400 Systolic blood pressure 116 mm[Hg] Palmira العراقي MD Work Phone: [facility] 03-25-2024 09:44-0400 Body height 170.2 cm Antione Harp DO Work Phone: [facility] 03-25-2024 09:44-0400 Body mass index (BMI) [Ratio] 35.87 kg/m2 Antione Harp DO Work Phone: [facility] 03-25-2024 09:44-0400 Body temperature 97.7 [degF] Antione Harp DO Work Phone: [facility] 03-25-2024 09:44-0400 Body weight 103.87 kg Antione Harp DO Work Phone: [facility] 03-25-2024 09:44-0400 Diastolic blood pressure 67 mm[Hg] Antione Baptistei DO Work Phone: [facility] 03-25-2024 09:44-0400 Heart rate 71 /min Antione Baptistei DO Work Phone: [facility] 03-25-2024 09:44-0400 SaO2% (BldA) [Mass fraction] 94 % Antione Harp DO Work Phone: [facility] Comment on above: #2 POC 03-25-2024 09:44-0400 Systolic blood pressure 136 mm[Hg] Antione Baptistei DO Work Phone: [facility] 03-14-2024 09:28-0400 Body height 172.7 cm Vianney Judge MD Work Phone: [facility] 03-14-2024 09:28-0400 Body mass index (BMI) [Ratio] 35.08 kg/m2 Vianney Judge MD Work Phone: [facility] 03-14-2024 09:28-0400 Body weight 104.64 kg Vianney Judge MD Work Phone: [facility] 03-14-2024 09:28-0400 Diastolic blood pressure 67 mm[Hg] Vianney Judge MD Work Phone: [facility] 03-14-2024 09:28-0400 Heart rate 69 /min Vianney Judge MD Work Phone: [facility] 03-14-2024 09:28-0400 SaO2% (BldA) [Mass fraction] 93 % Vianney Judge MD Work Phone: [facility] 03-14-2024 09:28-0400 Systolic blood pressure 131 mm[Hg] Vianney Judge MD Work Phone: [facility] 03-11-2024 08:47-0400 Body mass index (BMI) [Ratio] 36.34 kg/m2 Yisel Prado MD Work Phone: [facility] 03-11-2024 08:47-0400 Body temperature 97.7 [degF] Yisel Prado MD Work Phone: [facility] 03-11-2024 08:47-0400 Body weight 105.23 kg Yisel Prado MD Work Phone: [facility] 03-11-2024 08:47-0400 Diastolic blood pressure 70 mm[Hg] Yisel Prado MD Work Phone: [facility] 03-11-2024 08:47-0400 Heart rate 68 /min Yisel Prado MD Work Phone: [facility] 03-11-2024 08:47-0400 Respiratory rate 20 /min Yisel Prado MD Work Phone: [facility] 03-11-2024 08:47-0400 SaO2% (BldA) [Mass fraction] 98 % Yisel Prado MD Work Phone: [facility] 03-11-2024 08:47-0400 Systolic blood pressure 122 mm[Hg] Yisel Prado MD Work Phone: [facility] 02-24-2024 09:05-0400 Body height 170.2 cm Antione Harp DO Work Phone: [facility] 02-24-2024 09:05-0400 Body mass index (BMI) [Ratio] 35.87 kg/m2 Antione Harp DO Work Phone: [facility] 02-24-2024 09:05-0400 Body temperature 98.01 [degF] Antione Harp DO Work Phone: [facility] 02-24-2024 09:05-0400 Body weight 103.87 kg Antione Harp DO Work Phone: [facility] 02-24-2024 09:05-0400 Diastolic blood pressure 62 mm[Hg] Antione Harp DO Work Phone: [facility] 02-24-2024 09:05-0400 Heart rate 68 /min Antione Baptistei DO Work Phone: [facility] 02-24-2024 09:05-0400 SaO2% (BldA) [Mass fraction] 91 % Antione Baptistei DO Work Phone: [facility] 02-24-2024 09:05-0400 Systolic blood pressure 111 mm[Hg] Antione Baptistei DO Work Phone: [facility] 02-16-2024 13:15-0400 Diastolic blood pressure 77 mm[Hg] Par 1 [facility] 02-16-2024 13:15-0400 Heart rate 87 /min Par 1 [facility] 02-16-2024 13:15-0400 Respiratory rate 16 /min Par 1 [facility] 02-16-2024 13:15-0400 SaO2% (BldA) [Mass fraction] 96 % Par 1 [facility] 02-16-2024 13:15-0400 Systolic blood pressure 163 mm[Hg] Par 1 [facility] 02-16-2024 10:15-0400 Body temperature 97.5 [degF] Par 1 [facility] 02-03-2024 09:34-0400 Body height 170.2 cm Elke OLIVIER DNP Work Phone: [facility] 02-03-2024 09:34-0400 Body mass index (BMI) [Ratio] 36.18 kg/m2 Elke OLIVIER DNP Work Phone: [facility] 02-03-2024 09:34-0400 Body weight 104.78 kg Elke OLIVIER DNP Work Phone: [facility] 02-03-2024 09:34-0400 Diastolic blood pressure 64 mm[Hg] Elke OLIVIER DNP Work Phone: [facility] 02-03-2024 09:34-0400 Heart rate 68 /min Elke Martin APRN-LIZZ, DNP Work Phone: [facility] 02-03-2024 09:34-0400 Systolic blood pressure 128 mm[Hg] Elke Martin APRN-LIZZ, DNP Work Phone: [facility] 01-12-2024 13:49-0400 Body height 171.2 cm Elaine John BUSINESS ANALYTICS ANALYST-PRECISION THREAD GRINDER OPERATOR Work Phone: [facility] 01-12-2024 13:49-0400 Body mass index (BMI) [Ratio] 36.61 kg/m2 Elaine Betts BUSINESS ANALYTICS ANALYST-PRECISION THREAD GRINDER OPERATOR Work Phone: [facility] 01-12-2024 13:49-0400 Body temperature 97.5 [degF] Elaine Betts APRN-PRECISION THREAD GRINDER OPERATOR Work Phone: [facility] 01-12-2024 13:49-0400 Body weight 107.3 kg Elaine Betts APRN-PRECISION THREAD GRINDER OPERATOR Work Phone: [facility] 01-12-2024 13:49-0400 Diastolic blood pressure 56 mm[Hg] Elaine Betts APRN-PRECISION THREAD GRINDER OPERATOR Work Phone: [facility] 01-12-2024 13:49-0400 Heart rate 87 /min Elaine Betts APRN-PRECISION THREAD GRINDER OPERATOR Work Phone: [facility] 01-12-2024 13:49-0400 Respiratory rate 16 /min Elaine Betts BUSINESS ANALYTICS ANALYST-PRECISION THREAD GRINDER OPERATOR Work Phone: [facility] 01-12-2024 13:49-0400 SaO2% (BldA) [Mass fraction] 96 % Elaine Betts BUSINESS ANALYTICS ANALYST-PRECISION THREAD GRINDER OPERATOR Work Phone: [facility] 01-12-2024 13:49-0400 Systolic blood pressure 143 mm[Hg] Elaineevon Betts BUSINESS ANALYTICS ANALYST-PRECISION THREAD GRINDER OPERATOR Work Phone: [facility] 01-01-2024 10:46-0500 Body height 172.[address] Palmira العراقي Work Phone: [facility] 01-01-2024 10:46-0500 Body mass index (BMI) [Ratio] 36.1 kg/m2 Dr. Palmira العراقي Work Phone: [facility] 01-01-2024 10:46-0500 Body weight 107.[address] Palmira العراقي Work Phone: [facility] 01-01-2024 10:46-0500 Diastolic blood pressure 72 mm[Hg] Dr. Palmira العراقي Work Phone: [facility] 01-01-2024 10:46-0500 Heart rate 72 /min Dr. Palmira العراقي Work Phone: [facility] 01-01-2024 10:46-0500 SaO2% (BldA) [Mass fraction] 93 % Dr. Palmira العراقي Work Phone: [facility] 01-01-2024 10:46-0500 Systolic blood pressure 142 mm[Hg] Dr. Palmira العراقي Work Phone: [facility] 12-23-2023 10:37-0500 Body height 171.2 cm Palmira العراقي MD Work Phone: [facility] 12-23-2023 10:37-0500 Body mass index (BMI) [Ratio] 34.84 kg/m2 Palmira العراقي MD Work Phone: [facility] 12-23-2023 10:37-0500 Body weight 102.11 kg Palmira العراقي MD Work Phone: [facility] 12-23-2023 10:37-0500 Diastolic blood pressure 48 mm[Hg] Palmira العراقي MD Work Phone: [facility] 12-23-2023 10:37-0500 Heart rate 68 /min Palmira العراقي MD Work Phone: [facility] 12-23-2023 10:37-0500 SaO2% (BldA) [Mass fraction] 95 % Palmira العراقي MD Work Phone: [facility] 12-23-2023 10:37-0500 Systolic blood pressure 120 mm[Hg] Palmira العراقي MD Work Phone: [facility] 12-16-2023 09:25-0500 Body temperature 97.9 [degF] Robert Mortensen Jr., DPM Work Phone: [facility] 12-16-2023 09:25-0500 Diastolic blood pressure 72 mm[Hg] Robert Mortensen Jr., DPM Work Phone: [facility] 12-16-2023 09:25-0500 Heart rate 79 /min Robert Mortensen Jr., DPM Work Phone: [facility] 12-16-2023 09:25-0500 Systolic blood pressure 134 mm[Hg] Robert Mortensen Jr., DPM Work Phone: [facility] 12-15-2023 14:41-0500 Diastolic blood pressure 57 mm[Hg] Elaine Betts BUSINESS ANALYTICS ANALYST-PRECISION THREAD GRINDER OPERATOR Work Phone: [facility] Comment on above: L arm standing 12-15-2023 14:41-0500 Systolic blood pressure 124 mm[Hg] Elaine Betts BUSINESS ANALYTICS ANALYST-PRECISION THREAD GRINDER OPERATOR Work Phone: [facility] Comment on above: L arm standing 12-15-2023 13:12-0500 Body height 172.7 cm Elaine Betts BUSINESS ANALYTICS ANALYST-PRECISION THREAD GRINDER OPERATOR Work Phone: [facility] 12-15-2023 13:12-0500 Body mass index (BMI) [Ratio] 34.52 kg/m2 Elaine Betts BUSINESS ANALYTICS ANALYST-PRECISION THREAD GRINDER OPERATOR Work Phone: [facility] 12-15-2023 13:12-0500 Body temperature 97.2 [degF] Elaine Betts BUSINESS ANALYTICS ANALYST-PRECISION THREAD GRINDER OPERATOR Work Phone: [facility] 12-15-2023 13:12-0500 Body weight 102.97 kg Elaine Betts BUSINESS ANALYTICS ANALYST-PRECISION THREAD GRINDER OPERATOR Work Phone: [facility] 12-15-2023 13:12-0500 Heart rate 75 /min Elaine Betts BUSINESS ANALYTICS ANALYST-PRECISION THREAD GRINDER OPERATOR Work Phone: [facility] 12-15-2023 13:12-0500 Respiratory rate 20 /min Elaine Betts BUSINESS ANALYTICS ANALYST-PRECISION THREAD GRINDER OPERATOR Work Phone: [facility] 12-15-2023 13:12-0500 SaO2% (BldA) [Mass fraction] 94 % Elaine Betts BUSINESS ANALYTICS ANALYST-PRECISION THREAD GRINDER OPERATOR Work Phone: [facility] 11-03-2023 13:58-0500 Body height 172.7 cm Elaine Betts BUSINESS ANALYTICS ANALYST-PRECISION THREAD GRINDER OPERATOR Work Phone: [facility] 11-03-2023 13:58-0500 Body mass index (BMI) [Ratio] 34.86 kg/m2 Elaine Betts BUSINESS ANALYTICS ANALYST-PRECISION THREAD GRINDER OPERATOR Work Phone: [facility] 11-03-2023 13:58-0500 Body temperature 96.4 [degF] Elaine Betts APRN-PRECISION THREAD GRINDER OPERATOR Work Phone: [facility] 11-03-2023 13:58-0500 Body weight 103.96 kg Elaine Betts APRN-PRECISION THREAD GRINDER OPERATOR Work Phone: [facility] 11-03-2023 13:58-0500 Diastolic blood pressure 64 mm[Hg] Elaine Betts BUSINESS ANALYTICS ANALYST-PRECISION THREAD GRINDER OPERATOR Work Phone: [facility] 11-03-2023 13:58-0500 Heart rate 75 /min Elaine Betts BUSINESS ANALYTICS ANALYST-PRECISION THREAD GRINDER OPERATOR Work Phone: [facility] 11-03-2023 13:58-0500 Respiratory rate 16 /min Elaine Betts BUSINESS ANALYTICS ANALYST-PRECISION THREAD GRINDER OPERATOR Work Phone: [facility] 11-03-2023 13:58-0500 SaO2% (BldA) [Mass fraction] 95 % Elaine Betts BUSINESS ANALYTICS ANALYST-PRECISION THREAD GRINDER OPERATOR Work Phone: [facility] 11-03-2023 13:58-0500 Systolic blood pressure 121 mm[Hg] Elaine Betts BUSINESS ANALYTICS ANALYST-PRECISION THREAD GRINDER OPERATOR Work Phone: [facility] 10-14-2023 08:40-0500 Body temperature 97.7 [degF] Robert Mortensen Jr., DPM Work Phone: [facility] 10-14-2023 08:40-0500 Diastolic blood pressure 65 mm[Hg] Robert Mortensen Jr., DPM Work Phone: [facility] 10-14-2023 08:40-0500 Heart rate 76 /min Robert Mortensen Jr., DPM Work Phone: [facility] 10-14-2023 08:40-0500 Systolic blood pressure 122 mm[Hg] Robert Mortensen Jr., DPM Work Phone: [facility] 09-29-2023 08:56-0500 Body height 172.[address] Palmira العراقي Work Phone: [facility] 09-29-2023 08:56-0500 Body mass index (BMI) [Ratio] 35.2 kg/m2 Dr. Palmira العراقي Work Phone: [facility] 09-29-2023 08:56-0500 Body weight 105.[address] Palmira العراقي Work Phone: [facility] 09-29-2023 08:56-0500 Diastolic blood pressure 74 mm[Hg] Dr. Palmira العراقي Work Phone: [facility] 09-29-2023 08:56-0500 Heart rate 78 /min Dr. Palmira العراقي Work Phone: [facility] 09-29-2023 08:56-0500 SaO2% (BldA) [Mass fraction] 91 % Dr. Palmira العراقي Work Phone: [facility] 09-29-2023 08:56-0500 Systolic blood pressure 126 mm[Hg] Dr. Palmira العراقي Work Phone: [facility] 09-22-2023 14:29-0500 Body height 172.7 cm Elaine Betts BUSINESS ANALYTICS ANALYST-PRECISION THREAD GRINDER OPERATOR Work Phone: [facility] 09-22-2023 14:29-0500 Body mass index (BMI) [Ratio] 35.44 kg/m2 Elaine Betts BUSINESS ANALYTICS ANALYST-PRECISION THREAD GRINDER OPERATOR Work Phone: [facility] 09-22-2023 14:29-0500 Body weight 105.69 kg Elaine Betts BUSINESS ANALYTICS ANALYST-PRECISION THREAD GRINDER OPERATOR Work Phone: [facility] 09-22-2023 14:29-0500 Diastolic blood pressure 64 mm[Hg] Elanie Betts BUSINESS ANALYTICS ANALYST-PRECISION THREAD GRINDER OPERATOR Work Phone: [facility] 09-22-2023 14:29-0500 Heart rate 77 /min Elaine Betts BUSINESS ANALYTICS ANALYST-PRECISION THREAD GRINDER OPERATOR Work Phone: [facility] 09-22-2023 14:29-0500 Respiratory rate 20 /min Elaine Betts BUSINESS ANALYTICS ANALYST-PRECISION THREAD GRINDER OPERATOR Work Phone: [facility] 09-22-2023 14:29-0500 SaO2% (BldA) [Mass fraction] 92 % Elaine Betts BUSINESS ANALYTICS ANALYST-PRECISION THREAD GRINDER OPERATOR Work Phone: [facility] 09-22-2023 14:29-0500 Systolic blood pressure 127 mm[Hg] Elaine Betts BUSINESS ANALYTICS ANALYST-PRECISION THREAD GRINDER OPERATOR Work Phone: [facility] 09-18-2023 11:15-0500 Body temperature 97.7 [degF] Robert Mortensen Jr. DPM Work Phone: [facility] 09-18-2023 11:15-0500 Diastolic blood pressure 64 mm[Hg] Robert Mortensen Jr. DPM Work Phone: [facility] 09-18-2023 11:15-0500 Systolic blood pressure 139 mm[Hg] Robert Mortensen Jr., DPM Work Phone: [facility] 08-10-2023 10:19-0400 Body height 172.7 cm Elaine Betts BUSINESS ANALYTICS ANALYST-PRECISION THREAD GRINDER OPERATOR Work Phone: [facility] 08-10-2023 10:19-0400 Body mass index (BMI) [Ratio] 33.76 kg/m2 Elaine Betts BUSINESS ANALYTICS ANALYST-PRECISION THREAD GRINDER OPERATOR Work Phone: [facility] 08-10-2023 [id number] Body temperature 96.8 [degF] Elaine Betts BUSINESS ANALYTICS ANALYST-PRECISION THREAD GRINDER OPERATOR Work Phone: [facility] 08-10-2023 10:040 Body weight 100.7 kg Elaine Betts BUSINESS ANALYTICS ANALYST-PRECISION THREAD GRINDER OPERATOR Work Phone: [facility] 08-10-2023 10:19-0400 Diastolic blood pressure 69 mm[Hg] Elaine John BUSINESS ANALYTICS ANALYST-PRECISION THREAD GRINDER OPERATOR Work Phone: [facility] 08-10-2023 10:19-0400 Heart rate 73 /min Elaine Betts BUSINESS ANALYTICS ANALYST-PRECISION THREAD GRINDER OPERATOR Work Phone: [facility] 08-10-2023 10:19-0400 Respiratory rate 16 /min Elaine Betts BUSINESS ANALYTICS ANALYST-PRECISION THREAD GRINDER OPERATOR Work Phone: [facility] 08-10-2023 10:19-0400 SaO2% (BldA) [Mass fraction] 95 % Elaine Betts BUSINESS ANALYTICS ANALYST-PRECISION THREAD GRINDER OPERATOR Work Phone: [facility] 08-10-2023 10:19-0400 Systolic blood pressure 143 mm[Hg] Elaine Betts BUSINESS ANALYTICS ANALYST-PRECISION THREAD GRINDER OPERATOR Work Phone: [facility] 08-03-2023 10:21-0400 Body mass index (BMI) [Ratio] 33.57 kg/m2 Elke Martin APRN-LIZZ, DNP Work Phone: [facility] 08-03-2023 10:21-0400 Body weight 100.15 kg Elke Martin BUSINESS ANALYTICS ANALYST-PRECISION THREAD GRINDER OPERATOR, DNP Work Phone: [facility] 08-03-2023 10:21-0400 Diastolic blood pressure 60 mm[Hg] Elke Calvin ADEN-LIZZ, DNP Work Phone: [facility] 08-03-2023 10:21-0400 Heart rate 71 /min Elke Calvin OLIVIER, DNP Work Phone: [facility] 08-03-2023 10:21-0400 Systolic blood pressure 126 mm[Hg] Elke Martin KEIKO-LIZZ, DNP Work Phone: [facility] 07-28-2023 13:28-0400 Body height 172.7 cm Palmira العراقي MD Work Phone: [facility] 07-28-2023 13:28-0400 Body mass index (BMI) [Ratio] 33.75 kg/m2 Palmira العراقي MD Work Phone: [facility] 07-28-2023 13:28-0400 Body weight 100.7 kg Palmira العراقي MD Work Phone: [facility] 07-28-2023 13:28-0400 Diastolic blood pressure 46 mm[Hg] Palmira العراقي MD Work Phone: [facility] 07-28-2023 13:28-0400 Heart rate 82 /min Palmira العراقي MD Work Phone: [facility] 07-28-2023 13:28-0400 SaO2% (BldA) [Mass fraction] 94 % Palmira العراقي MD Work Phone: [facility] 07-28-2023 13:28-0400 Systolic blood pressure 108 mm[Hg] Palmira العراقي MD Work Phone: [facility] 07-15-2023 14:18-0400 Body mass index (BMI) [Ratio] 35.43 kg/m2 Palmira العراقي Work Phone: [id number] Work Phone: 07-15-2023 14:18-0400 Body surface area Derived from formula 2.18 m2 Palmira العراقي Work Phone: [id number] Work Phone: 07-15-2023 14:18-0400 Body weight 105.69 kg Palmirabruno العراقي Work Phone: [id number] Work Phone: 07-15-2023 14:18-0400 Respiratory rate 16 /min Palmiraeduardo العراقي Work Phone: [id number] Work Phone: 05-25-2023 10:26-0400 Body height 172.7 cm Palmira العراقي MD Work Phone: [facility] 05-25-2023 10:26-0400 Body mass index (BMI) [Ratio] 34.33 kg/m2 Palmira العراقي MD Work Phone: [facility] 05-25-2023 10:26-0400 Body weight 102.42 kg Palmira العراقي MD Work Phone: [facility] 05-25-2023 10:26-0400 Diastolic blood pressure 52 mm[Hg] Palmira العراقي MD Work Phone: [facility] 05-25-2023 10:26-0400 Heart rate 75 /min Palmira العراقي MD Work Phone: [facility] 05-25-2023 10:26-0400 SaO2% (BldA) [Mass fraction] 95 % Palmira العراقي MD Work Phone: [facility] 05-25-2023 10:26-0400 Systolic blood pressure 122 mm[Hg] Palmira العراقي MD Work Phone: [facility] 04-20-2023 15:18-0400 Diastolic blood pressure 76 mm[Hg] Dr. Palmira العراقي Work Phone: [facility] 04-20-2023 15:18-0400 Heart rate 82 /min Dr. Palmira العراقي Work Phone: [facility] 04-20-2023 15:18-0400 Respiratory rate 16 /min Dr. Palmira العراقي Work Phone: [facility] 04-20-2023 15:18-0400 SaO2% (BldA) [Mass fraction] 92 % Dr. Palmira العراقي Work Phone: [facility] 04-20-2023 15:18-0400 Systolic blood pressure 136 mm[Hg] Dr. Palmira العراقي Work Phone: [facility] 04-20-2023 12:29-0400 Body height 172.[address] Palmira العراقي Work Phone: [facility] 04-20-2023 12:29-0400 Body mass index (BMI) [Ratio] 34.7 kg/m2 Dr. Palmira العراقي Work Phone: [facility] 04-20-2023 12:29-0400 Body temperature 97.7 [degF] Dr. Palmira العراقي Work Phone: [facility] 04-20-2023 12:29-0400 Body weight 103.[address] Palmira العراقي Work Phone: [facility] 04-09-2023 11:05-0400 Body temperature 97.7 [degF] Dr. Palmira العراقي Work Phone: [facility] 04-09-2023 11:05-0400 Diastolic blood pressure 77 mm[Hg] Dr. Palmira العراقي Work Phone: [facility] 04-09-2023 11:05-0400 Heart rate 73 /min Dr. Palmira العراقي Work Phone: [facility] 04-09-2023 11:05-0400 Respiratory rate 16 /min Dr. Palmira العراقي Work Phone: [facility] 04-09-2023 11:05-0400 SaO2% (BldA) [Mass fraction] 93 % Dr. Palmira العراقي Work Phone: [facility] 04-09-2023 11:05-0400 Systolic blood pressure 132 mm[Hg] Dr. Palmira العراقي Work Phone: [facility] 04-09-2023 06:29-0400 Inhaled oxygen flow rate 2 L/min Dr. Palmira العراقي Work Phone: [phone])[phone] [place] [address] 04-09-2023 03:41-0400 Body mass index (BMI) [Ratio] 35 kg/m2 Dr. Palmira العراقي Work Phone: 2(067)[phone] [place] [address] 04-09-2023 03:41-0400 Body weight 104.[address] Palmira العراقي Work Phone: [facility] 04-06-2023 12:04-0400 Body height 172.[address] Palmira العراقي Work Phone: [facility] 04-06-2023 07:59-0400 Diastolic blood pressure 56 mm[Hg] Dr. Palmira العراقي Work Phone: 2(488)[phone] [place] [address] 04-06-2023 07:59-0400 Heart rate 71 /min Dr. Palmira العراقي Work Phone: [facility] 04-06-2023 07:59-0400 Respiratory rate 22 /min Dr. Palmira العراقي Work Phone: [facility] 04-06-2023 07:59-0400 SaO2% (BldA) [Mass fraction] 96 % Dr. Palmira العراقي Work Phone: [facility] 04-06-2023 07:59-0400 Systolic blood pressure 131 mm[Hg] Dr. Palmira العراقي Work Phone: [facility] 04-06-2023 07:40-0400 Body temperature 98 [degF] Dr. Palmira العراقي Work Phone: [facility] 04-06-2023 05:49-0400 Body height 172.[address] Palmira العراقي Work Phone: [facility] 04-06-2023 05:49-0400 Body mass index (BMI) [Ratio] 35.2 kg/m2 Dr. Palmira العراقي Work Phone: [facility] 04-06-2023 05:49-0400 Body weight [address] Palmira العراقي Work Phone: [facility] 04-02-2023 10:22-0400 Body height 172.72 cm Palmira العراقي Work Phone: [facility] Work Phone: 04-02-2023 10:22-0400 Body mass index (BMI) [Ratio] 35.45 kg/m2 Palmira العراقي Work Phone: [facility] Work Phone: 04-02-2023 10:22-0400 Body surface area Derived from formula 2.18 m2 Palmira العراقي Work Phone: [facility] Work Phone: 04-02-2023 10:22-0400 Body weight 105.75 kg Palmira [place] Work Phone: [facility] Work Phone: 04-02-2023 10:22-0400 Diastolic blood pressure 60 mm[Hg] Palmira العراقي Work Phone: [facility] Work Phone: 04-02-2023 10:22-0400 Systolic blood pressure 130 mm[Hg] Palmira العراقي Work Phone: [facility] 120 Work Phone: 03-13-2023 10:55-0400 Body temperature 98.49 [degF] Robert Donte Jr., DPM Work Phone: [facility] 03-13-2023 10:55-0400 Diastolic blood pressure 75 mm[Hg] Robert Donte Jr., DPM Work Phone: [facility] 03-13-2023 10:55-0400 Heart rate 80 /min Robert Donte Jr., DPM Work Phone: [facility] 03-13-2023 10:55-0400 Systolic blood pressure 132 mm[Hg] Robert Donte Jr., DPM Work Phone: [facility] 12-19-2022 10:55-0500 Body temperature 97.7 [degF] Robert Donte Jr., DPM Work Phone: [facility] 12-19-2022 10:55-0500 Diastolic blood pressure 73 mm[Hg] Robert Donte Jr., DPM Work Phone: [facility] 12-19-2022 10:55-0500 Heart rate 77 /min Robert Donte Jr., DPM Work Phone: [facility] 12-19-2022 10:55-0500 Systolic blood pressure 137 mm[Hg] Robert Donte Jr., DPM Work Phone: [facility] 11-04-2022 10:35-0500 Body height 172.72 cm Palmira العراقي Work Phone: [facility] 3 [facility] Work Phone: 11-04-2022 10:35-0500 Body mass index (BMI) [Ratio] 37.53 kg/m2 Palmira العراقي Work Phone: [facility] Vishal 3 DO Work Phone: 11-04-2022 10:35-0500 Body surface area Derived from formula 2.23 m2 Palmira العراقي Work Phone: [facility] Vishal 3 DO Work Phone: 11-04-2022 10:35-0500 Body weight 111.95 kg Palmira العراقي Work Phone: [facility] Vishal 3 DO Work Phone: 11-04-2022 10:35-0500 Diastolic blood pressure 58 mm[Hg] Palmira العراقي Work Phone: [facility] Vishal 3 DO Work Phone: 11-04-2022 10:35-0500 Heart rate 68 /min Palmira العراقي Work Phone: [facility] Vishal 3 DO Work Phone: 11-04-2022 10:35-0500 SaO2% (BldA) [Mass fraction] 95 % Palmira العراقي Work Phone: [facility] Vishal 3 DO Work Phone: 11-04-2022 10:35-0500 Systolic blood pressure 120 mm[Hg] Palmira العراقي Work Phone: [facility] Vishal 3 DO Work Phone: 10-08-2022 10:41-0500 Body height 172.72 cm Palmira العراقي Work Phone: [facility] Vishal 3 DO Work Phone: 10-08-2022 10:41-0500 Body mass index (BMI) [Ratio] 37.47 kg/m2 Palmira العراقي Work Phone: [facility] 3 DO Work Phone: 10-08-2022 10:41-0500 Body surface area Derived from formula 2.23 m2 Palmira العراقي Work Phone: [facility] 3 DO Work Phone: 10-08-2022 10:41-0500 Body weight 111.77 kg Palmira العراقي Work Phone: [facility] 3 DO Work Phone: 10-08-2022 10:41-0500 Diastolic blood pressure 58 mm[Hg] Palmira العراقي Work Phone: [facility] 3 DO Work Phone: 10-08-2022 10:41-0500 Heart rate 69 /min Palmira العراقي Work Phone: [facility] 3 DO Work Phone: 10-08-2022 10:41-0500 SaO2% (BldA) [Mass fraction] 93 % Palmira العراقي Work Phone: [facility] 3 DO Work Phone: 10-08-2022 10:41-0500 Systolic blood pressure 118 mm[Hg] Palmira العراقي Work Phone: [facility] 3 DO Work Phone: 2022 10:44-0400 Body height 172.72 cm Palmira العراقي Work Phone: [facility] Work Phone: 2022 10:44-0400 Body mass index (BMI) [Ratio] 37.03 kg/m2 Palmira العراقي Work Phone: [facility] Work Phone: 2022 10:44-0400 Body surface area Derived from formula 2.22 m2 Palmira العراقي Work Phone: [facility] Work Phone: 2022 10:44-0400 Body weight 110.48 kg [facility] Work Phone: [facility] Work Phone: 2022 10:44-0400 Diastolic blood pressure 62 mm[Hg] Palmira العراقي Work Phone: [facility] Work Phone: 2022 10:44-0400 Heart rate 84 /min Palmira العراقي Work Phone: [facility] Work Phone: 2022 10:44-0400 SaO2% (BldA) [Mass fraction] 93 % Palmira العراقي Work Phone: [facility] Work Phone: 2022 10:44-0400 Systolic blood pressure 110 mm[Hg] Palmira العراقي Work Phone: [facility] Work Phone: 07-03-2022 10:00-0400 Body height 172.72 cm Palmira العراقي Work Phone: [facility] Vishal 3 DO Work Phone: 07-03-2022 10:00-0400 Body mass index (BMI) [Ratio] 37.4 kg/m2 Palmira العراقي Work Phone: [facility] 3 DO Work Phone: 07-03-2022 10:00-0400 Body surface area Derived from formula 2.23 m2 Palmira العراقي Work Phone: [facility] 3 DO Work Phone: 07-03-2022 10:00-0400 Body weight 111.59 kg Palmira العراقي Work Phone: [facility] 3 DO Work Phone: 07-03-2022 10:00-0400 Diastolic blood pressure 62 mm[Hg] Palmira العراقي Work Phone: [facility] 3 DO Work Phone: 07-03-2022 10:00-0400 Heart rate 70 /min Palmira العراقي Work Phone: [facility] 3 DO Work Phone: 07-03-2022 10:00-0400 Systolic blood pressure 116 mm[Hg] Palmira العراقي Work Phone: [facility] 3 DO Work Phone: 06-27-2022 11:21-0400 Body temperature 98.2 [degF] Robert Mortensen Jr., DPM Work Phone: [facility] 06-27-2022 11:21-0400 Diastolic blood pressure 67 mm[Hg] Robert Mortensen Jr., DPM Work Phone: [facility] 06-27-2022 11:21-0400 Heart rate 74 /min Robert Mortensen Jr., DPM Work Phone: [facility] 06-27-2022 11:21-0400 Systolic blood pressure 126 mm[Hg] Robert Mortensen Jr. [facility] Work Phone: [facility] 06-16-2022 12:21-0400 Body height 172.72 cm Jae Gannon Work Phone: [facility] Work Phone: 06-16-2022 12:21-0400 Body mass index (BMI) [Ratio] 37.63 kg/m2 Jae Gannon Work Phone: [facility] Work Phone: 06-16-2022 12:21-0400 Body surface area Derived from formula 2.24 m2 Jae Gannon Work Phone: [facility] Work Phone: 06-16-2022 12:21-0400 Body weight 112.27 kg Jae Gannon Work Phone: [facility] Work Phone: 06-16-2022 12:21-0400 Diastolic blood pressure 52 mm[Hg] Jae Gannon Work Phone: [facility] Work Phone: 06-16-2022 12:21-0400 Heart rate 88 /min Jae Gannon Work Phone: [facility] Work Phone: 06-16-2022 12:21-0400 SaO2% (BldA) [Mass fraction] 93 % Jae Gannon Work Phone: [facility] Work Phone: 06-16-2022 12:21-0400 Systolic blood pressure 120 mm[Hg] Jae Gannon Work Phone: [facility] Work Phone: 06-16-2022 09:50-0400 Diastolic blood pressure 72 mm[Hg] Vianney Judge MD Work Phone: [facility] 06-16-2022 09:50-0400 Heart rate 72 /min Vianney Judge MD Work Phone: [facility] 06-16-2022 09:50-0400 SaO2% (BldA) [Mass fraction] 91 % Vianney Judge MD Work Phone: [facility] 06-16-2022 09:50-0400 Systolic blood pressure 125 mm[Hg] Vianney Judge MD Work Phone: [facility] 06-16-2022 09:36-0400 Body height 172.7 cm Vianney Judge MD Work Phone: [facility] 06-16-2022 09:36-0400 Body mass index (BMI) [Ratio] 35.67 kg/m2 Vianney Judge MD Work Phone: [facility] 06-16-2022 09:36-0400 Body weight 106.41 kg Vianney Judge MD Work Phone: [facility] 04-16-2022 13:55-0400 Diastolic blood pressure 64 mm[Hg] Jae Gannon Work Phone: LE-Fzpolep-Mnjeopw Work Phone: 04-16-2022 13:55-0400 Heart rate 104 /min Jae Gannon Work Phone: XT-Fpnbmys-Xkylhxs Work Phone: 04-16-2022 13:55-0400 Systolic blood pressure 125 mm[Hg] Jae Gannon Work Phone: PT-Zpszlcb-Uoxaaly Work Phone: 04-03-2022 10:39-0400 Body height 172.72 cm Jae Gannon [facility] 205 DO Work Phone: 04-03-2022 10:39-0400 Body mass index (BMI) [Ratio] 37.4 kg/m2 Jae Gannon Work Phone: [facility] 205 DO Work Phone: 04-03-2022 10:39-0400 Body surface area Derived from formula 2.23 m2 Jae Gannon Work Phone: [facility] 205 DO Work Phone: 04-03-2022 10:39-0400 Body weight 111.59 kg Jae Gannon Work Phone: [facility] 205 DO Work Phone: 04-03-2022 10:39-0400 Diastolic blood pressure 64 mm[Hg] Jae Gannon Work Phone: [facility] 205 DO Work Phone: 04-03-2022 10:39-0400 Heart rate 69 /min Jae Gannon Work Phone: [facility] 205 DO Work Phone: 04-03-2022 10:39-0400 SaO2% (BldA) [Mass fraction] 93 % Jae Gannon Work Phone: [facility] 205 DO Work Phone: 04-03-2022 10:39-0400 Systolic blood pressure 146 mm[Hg] Jae Gannon Work Phone: [facility] 205 DO Work Phone: 03-14-2022 11:11-0400 Body temperature 98.4 [degF] Robert Mortensen Jr., DPM Work Phone: [facility] 03-14-2022 11:11-0400 Diastolic blood pressure 64 mm[Hg] Robert Mortensen Jr., DPM Work Phone: [facility] 03-14-2022 11:11-0400 Heart rate 72 /min Robert Mortensen Jr., DPM Work Phone: [facility] 03-14-2022 11:11-0400 Systolic blood pressure 132 mm[Hg] Robert Mortensen Jr., DPM Work Phone: [facility] 02-12-2022 11:03-0400 Body height 172.72 cm Jae Gannon Work Phone: [facility] Work Phone: 02-12-2022 11:03-0400 Body mass index (BMI) [Ratio] 36.98 kg/m2 Jae Gannon Work Phone: [facility] Work Phone: 02-12-2022 11:03-0400 Body surface area Derived from formula 2.22 m2 Jae Gannon Work Phone: [facility] Work Phone: 02-12-2022 11:03-0400 Body weight 110.31 kg Jae Gannon Work Phone: [facility] Work Phone: 02-12-2022 11:03-0400 Diastolic blood pressure 60 mm[Hg] Jae Almita Mansfield Work Phone: [facility] Work Phone: 02-12-2022 11:03-0400 Heart rate 80 /min Jae Almita Mansfield Work Phone: [facility] Work Phone: 02-12-2022 11:03-0400 SaO2% (BldA) [Mass fraction] 96 % Jae Gannon Work Phone: [facility] Work Phone: 02-12-2022 11:03-0400 Systolic blood pressure 130 mm[Hg] Jae Gannon Work Phone: [facility] Work Phone: 01-01-2022 10:32-0500 Body height 172.72 cm Jae Almita Jagdeep Work Phone: [facility] 3 DO Work Phone: 01-01-2022 10:32-0500 Body mass index (BMI) [Ratio] 36.95 kg/m2 Jae Gannon Work Phone: [facility] 3 DO Work Phone: 01-01-2022 10:32-0500 Body surface area Derived from formula 2.22 m2 Jae Gannon Work Phone: [facility] 3 DO Work Phone: 01-01-2022 10:32-0500 Body weight 110.22 kg Jae Gannon Work Phone: [facility] 3 DO Work Phone: 01-01-2022 10:32-0500 Diastolic blood pressure 68 mm[Hg] Jae Almita Jagdeep Work Phone: [facility] 3 DO Work Phone: 01-01-2022 10:32-0500 Heart rate 68 /min Jae J Mansfield Work Phone: [facility] 3 DO Work Phone: 01-01-2022 10:32-0500 Systolic blood pressure 132 mm[Hg] Jae Gannon Work Phone: [facility] 3 DO Work Phone: 12-13-2021 11:08-0500 Diastolic blood pressure 76 mm[Hg] Robert Mortensen Jr., DPM Work Phone: [facility] 12-13-2021 11:08-0500 Heart rate 97 /min Robert Mortensen Jr., DPM Work Phone: [facility] 12-13-2021 11:08-0500 Systolic blood pressure 133 mm[Hg] Robert Mortensen Jr., DPM Work Phone: [facility] 12-13-2021 11:00-0500 Body temperature 97.5 [degF] Robert Mortensen Jr., DPM Work Phone: [facility] 10-04-2021 10:17-0500 Body height 172.72 cm Jae Gannon Work Phone: [facility] Work Phone: 10-04-2021 10:17-0500 Body mass index (BMI) [Ratio] 36.97 kg/m2 Jae Gannon Work Phone: [facility] Work Phone: 10-04-2021 10:17-0500 Body surface area Derived from formula 2.22 m2 Jae Gannon Work Phone: [facility] Work Phone: 10-04-2021 10:17-0500 Body temperature 96.9 [degF] Jae Gannon Work Phone: [facility] Work Phone: 10-04-2021 10:17-0500 Body weight 110.28 kg Jae Gannon Work Phone: [facility] Work Phone: 10-04-2021 10:17-0500 Diastolic blood pressure 68 mm[Hg] Jae Gannon Work Phone: [facility] Work Phone: 10-04-2021 10:17-0500 Heart rate 79 /min Jae Gannon Work Phone: [facility] Work Phone: 10-04-2021 10:17-0500 SaO2% (BldA) [Mass fraction] 98 % Jae Gannon Work Phone: [facility] Work Phone: 10-04-2021 10:17-0500 Systolic blood pressure 124 mm[Hg] Jae Perezpster Work Phone: [facility] Work Phone: 09-13-2021 10:56-0500 Body temperature 97.5 [degF] Robert Mortensen Jr., DPM Work Phone: [facility] 09-13-2021 10:56-0500 Diastolic blood pressure 68 mm[Hg] Robert Mortensen Jr., DPM Work Phone: [facility] 09-13-2021 10:56-0500 Heart rate 76 /min Robert Mortensen Jr., DPM Work Phone: [facility] 09-13-2021 10:56-0500 Systolic blood pressure 121 mm[Hg] Robert Mortensen Jr., DPM Work Phone: [facility] 08-07-2021 13:17-0400 Body height 172.72 cm Jae Gannon Work Phone: AS-Uwwkpyk-Nedxfdz Work Phone: 08-07-2021 13:17-0400 Body mass index (BMI) [Ratio] 35.88 kg/m2 Jae Bourgeoister Work Phone: NZ-Wzgzjah-Edoqqbd Work Phone: 08-07-2021 13:17-0400 Body surface area Derived from formula 2.19 m2 Jae Bourgeoister Work Phone: YM-Iplfist-Iarurlg Work Phone: 08-07-2021 13:17-0400 Body weight 107.05 kg Jae Bourgeoister Work Phone: XW-Gzhzxbb-Adgmgnw Work Phone: 08-07-2021 13:17-0400 Diastolic blood pressure 72 mm[Hg] Jae Bourgeoister Work Phone: IB-Xbhrnwa-Kswcpfr Work Phone: 08-07-2021 13:17-0400 Heart rate 64 /min Jae Gnanon Work Phone: WQ-Fxmuyqd-Zgfsjqs Work Phone: 08-07-2021 13:17-0400 Systolic blood pressure 135 mm[Hg] Jae Bourgeoister Work Phone: WU-Olerhud-Eleqada Work Phone: 07-18-2021 09:55-0400 Body height 172.72 cm Jae Bourgeoister Work Phone: [employer] [facility] Work Phone: 07-18-2021 09:55-0400 Body mass index (BMI) [Ratio] 35.65 kg/m2 Jae Bourgeoister Work Phone: [employer] Work Phone: 07-18-2021 09:55-0400 Body surface area Derived from formula 2.19 m2 Jae Gannon Work Phone: [facility] Work Phone: 07-18-2021 09:55-0400 Body temperature 96.8 [degF] Jae Gannon Work Phone: [facility] Work Phone: 07-18-2021 09:55-0400 Body weight 106.34 kg Jae Gannon Work Phone: [facility] Work Phone: 07-18-2021 09:55-0400 Diastolic blood pressure 58 mm[Hg] Jae Gannon Work Phone: [facility] Work Phone: 07-18-2021 09:55-0400 Heart rate 68 /min Jae Gannon Work Phone: [facility] Work Phone: 07-18-2021 09:55-0400 SaO2% (BldA) [Mass fraction] 92 % Jae Gannon Work Phone: [facility] Work Phone: 07-18-2021 09:55-0400 Systolic blood pressure 120 mm[Hg] Jae Gannon Work Phone: [facility] Work Phone: 06-06-2021 09:47-0400 Body height 172.7 cm Aris Meredith MD Work Phone: [facility] 06-06-2021 09:47-0400 Body mass index (BMI) [Ratio] 35.28 kg/m2 Aris Meredith MD Work Phone: [facility] 06-06-2021 09:47-0400 Body weight 105.23 kg Aris Meredith MD Work Phone: [facility] 06-06-2021 09:47-0400 Diastolic blood pressure 69 mm[Hg] Aris Meredith MD Work Phone: [facility] 06-06-2021 09:47-0400 Heart rate 71 /min Aris Meredith MD Work Phone: [facility] 06-06-2021 09:47-0400 SaO2% (BldA) [Mass fraction] 93 % Aris Meredith MD Work Phone: [facility] 06-06-2021 09:47-0400 Systolic blood pressure 138 mm[Hg] Aris Meredith MD Work Phone: [facility] 05-24-2021 10:08-0400 Body height 172.72 cm Jae Gannon Work Phone: [facility] Vishal 3 DO Work Phone: 05-24-2021 10:08-0400 Body mass index (BMI) [Ratio] 35.12 kg/m2 Jae Gannon Work Phone: [facility] Vishal 3 DO Work Phone: 05-24-2021 10:08-0400 Body surface area Derived from formula 2.17 m2 Jae Gannon Work Phone: [facility] V[facility]al 3 DO Work Phone: 05-24-2021 10:08-0400 Body weight 104.78 kg Jae Gannon Work Phone: [facility] Vishal 3 DO Work Phone: 05-24-2021 10:08-0400 Diastolic blood pressure 66 mm[Hg] Jae Gannon Work Phone: [facility] Vishal 3 DO Work Phone: 05-24-2021 10:08-0400 Heart rate 73 /min Jae Almita Jagdeep Work Phone: [facility] 3 DO Work Phone: 05-24-2021 10:08-0400 Systolic blood pressure 138 mm[Hg] Jae Almita Jagdeep Work Phone: [facility] 3 DO Work Phone: 04-18-2021 10:01-0400 Body height 172.72 cm Jae Almita Jagdeep Work Phone: [facility] Work Phone: 04-18-2021 10:01-0400 Body mass index (BMI) [Ratio] 34.23 kg/m2 Jae Almita Jagdeep Work Phone: [facility] Work Phone: 04-18-2021 10:01-0400 Body surface area Derived from formula 2.15 m2 Jae Almita Jagdeep Work Phone: [facility] Work Phone: 04-18-2021 10:01-0400 Body temperature 97.3 [degF] Jae Almita Jagdeep Work Phone: [facility] Work Phone: 04-18-2021 10:01-0400 Body weight 102.12 kg Jae Almita Jagdeep Work Phone: [facility] Work Phone: 04-18-2021 10:01-0400 Diastolic blood pressure 62 mm[Hg] Jae Recio Mansfield Work Phone: [facility] Work Phone: 04-18-2021 10:01-0400 Heart rate 79 /min Jae Gannon Work Phone: [facility] Work Phone: 04-18-2021 10:01-0400 SaO2% (BldA) [Mass fraction] 95 % Jae Gannon Work Phone: [facility] Work Phone: 04-18-2021 10:01-0400 Systolic blood pressure 126 mm[Hg] Jae Gannon Work Phone: [facility] Work Phone: 03-20-2021 10:04-0400 Body height 172.72 cm Jae Gannon Work Phone: [facility] Work Phone: 03-20-2021 10:04-0400 Body mass index (BMI) [Ratio] 33.84 kg/m2 Jae Gannon Work Phone: [facility] Work Phone: 03-20-2021 10:04-0400 Body surface area Derived from formula 2.14 m2 Jae Gannon Work Phone: [facility] Work Phone: 03-20-2021 10:04-0400 Body temperature 97.5 [degF] Jae Gannon Work Phone: [facility] Work Phone: 03-20-2021 10:04-0400 Body weight 100.95 kg Jae Gannon Work Phone: [facility] Work Phone: 03-20-2021 10:04-0400 Diastolic blood pressure 58 mm[Hg] Jae Gannon Work Phone: [facility] Work Phone: 03-20-2021 10:04-0400 Heart rate 70 /min Jae Gannon Work Phone: [facility] Work Phone: 03-20-2021 10:04-0400 SaO2% (BldA) [Mass fraction] 97 % Jae Gannon Work Phone: [facility] Work Phone: 03-20-2021 10:04-0400 Systolic blood pressure 128 mm[Hg] Jae Gannon Work Phone: [facility] Work Phone: 03-15-2021 10:43-0400 Body height 172.7 cm Robert Mortensen Jr. DP Work Phone: [facility] 03-15-2021 10:43-0400 Body mass index (BMI) [Ratio] 33.45 kg/m2 Robert Mortensen Jr. DPM Work Phone: [facility] 03-15-2021 10:43-0400 Body weight 99.79 kg Robert Mortensen Jr. DPM Work Phone: [facility] 01-30-2021 14:58-0400 BMI (Body Mass Index) 33.15 kg/m2 Martin Rick II IU-Xgzhujd-Fiylocv Work Phone: 01-30-2021 14:58-0400 Body weight 98.91 kg Martin Rick II EJ-Lirpfbf-Wxlhi nd Work Phone: 01-30-2021 14:58-0400 BP Diastolic 87 mm[Hg] aMrtin Rick II ON-Yxvypjl-Zhuyl nd Work Phone: 01-30-2021 14:58-0400 BP Systolic 160 mm[Hg] Martin Rick II ZI-Cihxfiq-Zvmac nd Work Phone: 01-30-2021 14:58-0400 BSA (Body Surface Area) 2.12 m2 Martin Rick II CR-Psmagtj-Rfvymav Work Phone: 01-30-2021 14:58-0400 Height 172.72 cm Martin Rick II ZU-Afkdmjc-Zdcyn nd Work Phone: 01-30-2021 14:58-0400 Pulse (Heart Rate) 87 /min Martin Rick II HM-Zaraetj-Bn hland Work Phone: 01-21-2021 13:28-0400 BMI (Body Mass Index) 33.3 kg/m2 Martin Rick II DE-Kvpekao-Bgkbyvf Work Phone: 01-21-2021 13:28-0400 Body weight 99.34 kg Martin Rick II CM-Mmmkehp-Tnrnv nd Work Phone: 01-21-2021 13:28-0400 BP Diastolic 79 mm[Hg] Martin Rick II HW-Qwbiuvf-Xjwat nd Work Phone: 01-21-2021 13:28-0400 BP Systolic 136 mm[Hg] Martin Rick II VF-Tniiexe-Utaja nd Work Phone: 01-21-2021 13:28-0400 BSA (Body Surface Area) 2.12 m2 Martin Rick II PI-Ivwqslf-Cnxlacf Work Phone: 01-21-2021 13:28-0400 Height 172.72 cm Martin Rick II RM-Tselfkw-Ptidh nd Work Phone: 01-21-2021 13:28-0400 Pulse (Heart Rate) 76 /min Martin Rick II BW-Fnmorwx-Uj hland Work Phone: 11-30-2020 13:23-0500 BMI (Body Mass Index) 31.32 kg/m2 Nancy Rios [facility] Internal Medicine Work Phone: 11-30-2020 13:23-0500 Body Temperature 98.2 [degF] [facility] Medicine Work Phone: 11-30-2020 13:23-0500 Body weight 93.44 kg [facility] Medicine Work Phone: 11-30-2020 13:23-0500 BP Diastolic 68 mm[Hg] [facility] Medicine Work Phone: Comment on above: Location: LUE; Position: Sitting 11-30-2020 13:23-0500 BP Systolic 126 mm[Hg] [facility] Medicine Work Phone: Comment on above: Location: LUE; Position: Sitting 11-30-2020 13:23-0500 BSA (Body Surface Area) 2.07 m2 [facility] Medicine Work Phone: 11-30-2020 13:23-0500 Height 172.72 cm [facility] Medicine Work Phone: 11-30-2020 13:23-0500 Pulse (Heart Rate) 89 /min [facility] Medicine Work Phone: 11-30-2020 13:23-0500 Pulse Oximetry 97 % [facility] Medicine Work Phone: 06-12-2020 10:42-0400 BMI (Body Mass Index) 34.97 kg/m2 Aris Meredith [facility] 06-12-2020 10:42-0400 Body weight 104.33 kg Aris Meredith [facility] 06-12-2020 10:42-0400 BP Diastolic 68 mm[Hg] Aris Meredith [facility] 06-12-2020 10:42-0400 BP Systolic 151 mm[Hg] Aris Meredith [facility] 06-12-2020 10:42-0400 Height 172.7 cm Aris Meredith [facility] 06-12-2020 10:42-0400 Pulse (Heart Rate) 58 /min Aris Meredith [facility] 05-31-2020 09:07-0400 BMI (Body Mass Index) 34.97 kg/m2 Aris Meredith [facility] 05-31-2020 09:07-0400 Body weight 104.33 kg Aris Meredith [facility] 05-31-2020 09:07-0400 BP Diastolic 80 mm[Hg] Aris Meredith [facility] 05-31-2020 09:07-0400 BP Systolic 142 mm[Hg] Aris Meredith [facility] 04-30-2020 12:17-0400 BMI (Body Mass Index) 35.15 kg/m2 Martin Rick II ZB-Hftubzz-Dhbekmf Work Phone: 04-30-2020 12:17-0400 Body weight 103.99 kg Martin Rick II AL-Gonfdws-Mzqyl nd Work Phone: 04-30-2020 12:17-0400 BP Diastolic 63 mm[Hg] Martin Riverak II KZ-Deabxsc-Smqwq nd Work Phone: 04-30-2020 12:17-0400 BP Systolic 140 mm[Hg] Martin Rick II LS-Syrutyn-Rzeap nd Work Phone: 04-30-2020 12:17-0400 BSA (Body Surface Area) 2.16 m2 Martin Rick II ZE-Srtnayw-Weqdqws Work Phone: 04-30-2020 12:17-0400 Height 172 cm Martin Riverak II AD-Dbnzrgd-Ojwqe nd Work Phone: 04-30-2020 12:17-0400 Pulse (Heart Rate) 74 /min Martin Riverak II EC-Utvxdht-Ya hland Work Phone: 04-23-2020 12:31-0400 Body Temperature 97.7 [degF] Martin Rick II QD-Txiwpsi-Slvk and Work Phone: 04-23-2020 12:31-0400 BP Diastolic 71 mm[Hg] Martin Riverak II CX-Zvybpot-Fftve nd Work Phone: Comment on above: Location: E; Position: Sitting 04-23-2020 12:31-0400 BP Systolic 150 mm[Hg] Martin Riverak II CJ-Orsgggj-Aacvr nd Work Phone: Comment on above: Location: LUE; Position: Sitting 04-23-2020 12:31-0400 Pulse (Heart Rate) 61 /min Martin Rick II AI-Olkbeoq-Cj hland Work Phone: 04-23-2020 12:31-0400 Pulse Oximetry 97 % Martin Rick II DG-Kcxgnpl-Psrbq nd Work Phone: 11-09-2019 11:09-0500 BMI (Body Mass Index) 34.43 kg/m2 Jae Mansfield -[facility] Work Phone: 11-09-2019 11:09-0500 Body weight 102.71 kg Jae Bourgeoister -[facility] Work Phone: 11-09-2019 11:09-0500 BP Diastolic 56 mm[Hg] Jae Mansfield -[facility] Work Phone: Comment on above: Location: LUE; 11-09-2019 11:09-0500 BP Systolic 124 mm[Hg] Jae Mansfield -[facility] Work Phone: Comment on above: Location: LUE; 11-09-2019 11:09-0500 BSA (Body Surface Area) 2.15 m2 Jae Mansfield -[facility] Work Phone: 11-09-2019 11:09-0500 Height 172.72 cm Jae Perezpster -[facility] Work Phone: 11-09-2019 11:09-0500 Pulse (Heart Rate) 69 /min Jae Mansfield -[facility] Work Phone: 11-09-2019 11:09-0500 Pulse Oximetry 96 % Jae Mansfield -[facility] Work Phone: 10-12-2019 12:37-0500 BMI (Body Mass Index) 34.71 kg/m2 Jae Mansfield -[facility] Work Phone: 10-12-2019 12:37-0500 Body weight 103.53 kg Jae Gannon [facility] Work Phone: 10-12-2019 12:37-0500 BP Diastolic 60 mm[Hg] Jae Gannon [facility] Work Phone: Comment on above: Location: [facility]10-12-2019 12:37-0500 BP Systolic 130 mm[Hg] [facility] Work [facility]: Comment on above: Location: [facility] [place] [facility]10-12-2019 12:37-0500 BSA (Body Surface Area) 2.16 m2 [facility] Work Phone: 10-12-2019 12:37-0500 Height 172.72 cm Jae [facility] Work Phone: 10-12-2019 12:37-0500 Pulse (Heart Rate) 70 /min [facility] Work [facility]: 10-12-2019 12:37-0500 Pulse Oximetry 95 % [facility] Work Phone: 05-12-2019 11:19-0400 BMI (Body Mass Index) 35.94 kg/m2 Aris Viri [facility] 05-12-2019 11:19-0400 Body weight 107.23 kg Aris Viri [facility] 05-12-2019 11:19-0400 BP Diastolic 63 mm[Hg] Aris Viri [facility] 05-12-2019 11:19-0400 BP Systolic 143 mm[Hg] Aris Viri [facility] 05-12-2019 11:19-0400 Height 172.7 cm Aris Meredith [facility] 05-12-2019 11:19-0400 Pulse (Heart Rate) 64 /min Aris Meredith [facility] 05-12-2019 11:19-0400 Pulse Oximetry 93 % Aris Meredith [facility] 02-10-2019 08:05-0400 BMI (Body Mass Index) 36.9 kg/m2 Rosalina Woodward [facility] 02-10-2019 08:05-0400 BP Diastolic 81 mm[Hg] Rosalina Woodward [facility] 02-10-2019 08:05-0400 BP Systolic 138 mm[Hg] Rosalina Woodward [facility] 02-10-2019 08:05-0400 Height 172.7 cm Rosalina Woodward [facility] 02-10-2019 08:05-0400 Pulse (Heart Rate) 66 /min Rosalina Woodward [facility] 02-10-2019 08:05-0400 Pulse Oximetry 94 % Rosalina Woodward [facility] 02-10-2019 08:05-0400 Weight 110.09 kg Rosalina Woodward [facility] 11-11-2018 12:11-0500 BMI (Body Mass Index) 37.08 kg/m2 Aris Meredith [facility] 11-11-2018 12:11-0500 BP Diastolic 81 mm[Hg] Aris Liraashley [facility] 11-11-2018 12:11-0500 BP Systolic 157 mm[Hg] Arisanna Meredith [facility] 11-11-2018 12:11-0500 Height 172.7 cm Arisanna Meredith [facility] 11-11-2018 12:11-0500 Pulse (Heart Rate) 80 /min Aris Meredith [facility] 11-11-2018 12:11-0500 Pulse Oximetry 93 % Aris Meredith [facility] 11-11-2018 12:11-0500 Weight 110.63 kg Aris Davashley [facility] 11-05-2017 14:04-0500 BMI (Body Mass Index) 36.34 kg/m2 Aris Meredith [facility] Work Phone: 11-05-2017 14:04-0500 BP Diastolic 77 mm[Hg] Aris Viri [facility] Work Phone: 11-05-2017 14:04-0500 BP Systolic 165 mm[Hg] Aris Meredith [facility] Work Phone: 11-05-2017 14:04-0500 Height 172.7 cm Aris Viri [facility] Work Phone: 11-05-2017 14:04-0500 Pulse (Heart Rate) 79 /min Aris Meredith [facility] Work Phone: 11-05-2017 14:04-0500 Weight 108.41 kg Aris Meredith [facility] Work Phone: Encounters Encounter Date Encounter Type Care Provider Facility Start: 05-26-2025 ambulatory Bert Kirby Facility :[facility] Start: 04-05-2025 End: 04-05-2025 ambulatory [facility] Start: 04-05-2025 End: 04-05-2025 Encounter for general adult medical examination without abnormal findings [facility] Start: 04-02-2025 End: 04-02-2025 Emergency department patient [facility] Start: 03-31-2025 End: 03-31-2025 Patient encounter procedure Robert Mortensen DPM Work Phone: [facility] Comment on above: Onychomycosis (Prima ry Dx); Peripheral vascular disease, unspecified Start: 03-31-2025 End: 03-31-2025 ambulatory PALMIRA RENETTA [facility] Start: 03-28-2025 End: 03-28-[address] Palmira العراقي MD Work Phone: [facility] Work Phone: Start: 03-28-2025 End: 03-28-[address] Grey Nava MD [facility] Work Phone: Start: 03-28-2025 End: 03-28-2025 ambulatory [facility] Start: 03-24-2025 End: 03-24-[address] Palmira العراقي MD Work Phone: [facility] Work Phone: Start: 03-24-2025 End: 03-24-[address] Grey Nava MD -Laboratory Work Phone: Start: 03-24-2025 End: 03-24-2025 ambulatory [facility] Facility:[facility] Start: 03-21-2025 End: 03-21-2025 Office outpatient visit 25 minutes Vianney Judge MD Work Phone: [facility] Comment on above: Dyslipidemia (Primar y Dx); Primary hypertension; Coronary artery disease, unspecified vessel or lesion type, unspecified whether angina present, unspecified whether kiowa tribe or transplanted heart Start: 03-21-2025 End: 03-21-2025 ambulatory PALMIRA العراقي [facility] Ambulatory Start: 03-14-2025 End: 03-14-2025 ambulatory JUANY [facility] Start: 03-13-2025 End: 03-13-2025 Office outpatient visit 25 minutes Elaine Mcgill Parksley KEIKO-PRECISION THREAD GRINDER OPERATOR Work Phone: [facility] Comment on above: Anemia due to stage 4 chronic kidney disease; Leukopenia, unspecified type; Myelodysplastic syndrome, 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Multi); Stage 4 chronic kidney disease (Multi); Thrombocytopenia (CMS-HCC); Anemia due to stage 3b chronic kidney disease; Neutropenia, unspecified type; Type 2 diabetes mellitus with diabetic chronic kidney disease; 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, unspecified vessel or lesion type, unspecified whether angina present; Type 2 diabetes mellitus with stage 4 chronic kidney disease, with long-term current use of insulin (Multi); Mixed hyperlipidemia; Primary hypertension; Tremor, essential Start: 03-13-2025 End: 03-13-2025 ambulatory ELAINE [facility] Start: 02-28-2025 End: 02-28-2025 Office outpatient visit 25 minutes Palmira العراقي MD Work Phone: [facility] Comment on above: Stage 4 chronic kidn ey disease (Multi) (Primary Dx); Thrombocytopenia (CMS-HCC); Other pancytopenia (Multi); Primary hypertension; Type 2 diabetes mellitus with stage 4 chronic kidney disease, with long-term current use of insulin (Multi); Acute on chronic anemia Start: 02-28-2025 End: 02-28-2025 ambulatory PALMIRA العراقي [facility] Amb[facility] Start: 02-27-2025 End: 02-27-2025 Office outpatient visit 15 minutes Elke Lundberg Calvin BUSINESS ANALYTICS ANALYST-PRECISION THREAD GRINDER OPERATOR, DNP Work Phone: [facility] Building Comment on above: Primary hypertension (Primary Dx); Stage 4 chronic kidney disease (Multi); Anemia due to stage 4 chronic kidney disease Start: 02-27-2025 End: 02-27-2025 ambulatory ELKE MARTIN [facility] Start: 02-27-2025 End: 02-27-2025 [facility] Start: 02-13-2025 End: 02-13-2025 Office outpatient visit 25 minutes [facility] BUSINESS ANALYTICS ANALYST-PRECISION THREAD GRINDER OPERATOR Work Phone: [facility] [place] Comment on above: Anemia due to stage 4 chronic kidney disease; Leukopenia, unspecified type; Myelodysplastic syndrome, 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Multi); Stage 4 chronic kidney disease (Multi); Thrombocytopenia ([facility]-HCC); Anemia due to stage 3b chronic kidney disease; Neutropenia, unspecified type; Type 2 diabetes mellitus with diabetic chronic kidney disease; 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, unspecified vessel or lesion type, unspecified whether angina present; Type 2 diabetes mellitus with stage 4 chronic kidney disease, with long-term current use of insulin (Multi); Mixed hyperlipidemia; Primary hypertension; Tremor, essential Start: 02-13-2025 End: 02-13-2025 ambulatory [facility] Start: 01-31-2025 End: 01-31-2025 Evaluation and management of inpatient Chet Neurodg [employer] Start: 01-30-2025 End: 02-03-2025 Evaluation and management of inpatient Ravi Bills DO Work Phone: [facility] 3 Comment on above: Acute kidney injury superimposed on chronic kidney disease (Primary Dx); Anemia, unspecified type; Swelling of both lower extremities; Localized edema; Tremor, essential; Peripheral vascular disease, 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[facility]-HCC) Start: 01-30-2025 End: 01-31-2025 ambulatory [facility] Start: 01-18-2025 End: 01-18-2025 ambulatory JUANY GAEKE [facility] Start: 01-18-2025 End: 01-18-2025 Office outpatient visit 25 minutes Yisel Prado MD Work Phone: [facility] [place] Comment on above: Thrombocytopenia (CM S-HCC); 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); Myelodysplastic syndrome, 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Multi) Start: 01-16-2025 End: 01-16-2025 ambulatory ELAINE Mcgill [facility] Start: 01-13-2025 End: 01-13-2025 Office outpatient visit 25 minutes Antione Harp DO Work Phone: [facility] Comment on above: Abnormal CT scan (Pr imary Dx); History of continuous positive airway pressure (CPAP) therapy Start: 01-13-2025 End: 01-13-[address] [facility] Ambulatory Start: 01-06-2025 End: 01-06-2025 Subsequent hospital visit by physician Chet Adams [address] [place] [address] Comment on above: Interstitial lung di sease (Multi) Start: 01-06-2025 End: 01-06-2025 ambulatory [facility] Start: 01-03-2025 End: 01-03-2025 Office outpatient visit 25 minutes Palmira العراقي MD Work Phone: [facility] Comment on above: Primary hypertension (Primary Dx); Interstitial lung disease (Multi); Class 2 severe obesity with serious comorbidity and body mass index (BMI) of 35.0 to 35.9 in adult, unspecified obesity type; Gastroesophageal reflux disease, unspecified whether esophagitis present; Mixed hyperlipidemia; Neutropenia, unspecified type (CMS-HCC); Stage 4 chronic kidney disease (Multi); Thrombocytopenia (CMS-HCC); Type 2 diabetes mellitus with stage 4 chronic kidney disease, with long-term current use of insulin (Multi); Peripheral vascular disease, 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CMS-HCC); 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, unspecified vessel or lesion type, unspecified whether angina present; 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); Other pancytopenia (Multi) Start: 01-03-2025 End: 01-03-2025 ambulatory PALMIRA Molina [facility] Ambulatory Start: 01-02-2025 End: 01-02-2025 ambulatory [facility] Start: 01-02-2025 End: 01-02-2025 Office outpatient visit 15 minutes Elaine Mcgill Parksley BUSINESS ANALYTICS ANALYST-PRECISION THREAD GRINDER OPERATOR Work Phone: [facility] [place] Comment on above: 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); Leukopenia, unspecified type; Myelodysplastic syndrome, 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Multi); Stage 4 chronic kidney disease (Multi); Thrombocytopenia (CMS-HCC); 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); Neutropenia, unspecified type (CMS-HCC); Type 2 diabetes mellitus with diabetic chronic kidney disease; 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, unspecified vessel or lesion type, unspecified whether angina present; Type 2 diabetes mellitus with stage 4 chronic kidney disease, with long-term current use of insulin ([facility]); Mixed hyperlipidemia; Primary hypertension; Tremor, essential Start: 01-02-2025 End: 01-02-2025 ambulatory [facility] Start: 12-30-2024 End: 12-30-2024 ambulatory PALMIRAEDUARDO CHACKO [facility] Start: 12-30-2024 End: 12-30-2024 Patient encounter procedure Robert Mortensen DPToño Work Phone: [facility] Comment on above: Onychomycosis (Prima ry Dx); Peripheral vascular disease, unspecified Start: 12-19-2024 End: 12-19-2024 ambulatory [facility] Start: 12-15-2024 End: 12-15-[address] Grey Nava MD [facility] Work Phone: Start: 12-15-2024 End: 12-15-2024 ambulatory Grey Nava Facility:[facility] Start: 12-09-2024 End: 12-09-[address] Grey Nava MD -Laboratory Work Phone: Start: 12-09-2024 End: 12-09-2024 ambulatory Grey Elijah Facility:[facility] Start: 12-05-2024 End: 12-05-2024 ambulatory [facility] Start: 12-05-2024 End: 12-05-2024 ambulatory [facility] Start: 11-21-2024 End: 11-21-2024 ambulatory [facility] Start: 11-16-2024 End: 11-16-2024 Office outpatient visit 25 minutes Mariah Can MD Work Phone: [facility] Comment on above: Carpal tunnel syndro me, bilateral (Primary Dx) Start: 11-16-2024 End: 11-16-2024 ambulatory PALMIRA CHACKO [facility] Start: 11-07-2024 End: 11-07-2024 ambulatory [facility] Start: 11-03-2024 End: 11-03-2024 Office outpatient visit 15 minutes Elke OLIVIER, DNP Work Phone: [facility] Building Comment on above: Stage 4 chronic kidn ey disease (Multi) (Primary Dx); Primary hypertension; Type 2 diabetes mellitus with stage 4 chronic kidney disease, with long-term current use of insulin (Multi) Start: 11-03-2024 End: 11-03-2024 ambulatory [facility] Start: 10-31-2024 End: 10-31-2024 Office outpatient visit 25 minutes Palmira العراقي MD Work Phone: [facility] Comment on above: Upper respiratory tr act infection, unspecified type (Primary Dx); Rash Start: 10-31-2024 End: 10-31-2024 ambulatory [facility] Ambulatory Start: 10-29-2024 End: 10-29-2024 ambulatory [facility] Start: 10-28-2024 End: 10-28-2024 Emergency department patient visit Bubba Del Cid Facility:[facility] Start: 10-24-2024 End: 10-24-2024 ambulatory [facility] Start: 10-24-2024 End: 10-24-2024 Office outpatient visit 15 minutes Elaine S Parksley BUSINESS ANALYTICS ANALYST-PRECISION THREAD GRINDER OPERATOR Work Phone: [facility] [place] Comment on above: 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); Leukopenia, unspecified type; Myelodysplastic syndrome, 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Multi); Stage 4 chronic kidney disease (Multi); Thrombocytopenia (CMS-HCC); 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); Neutropenia, unspecified type (CMS-HCC) Start: 10-18-2024 End: 10-18-2024 Office outpatient visit 15 minutes Palmira العراقي MD Work Phone: [facility] Comment on above: Cellulitis of left l ower extremity (Primary Dx); Tremor, essential Start: 10-18-2024 End: 10-18-2024 ambulatory [facility] Start: 10-11-2024 End: 10-11-2024 Emergency department patient visit PALMIRA CHACKO [facility] Start: 10-10-2024 End: 10-10-2024 ambulatory [facility] Start: 10-03-2024 End: 10-03-2024 Office outpatient visit 25 minutes Palmira العراقي MD Work Phone: [facility] Comment on above: Coronary artery dise ase involving [place] tribe heart, unspecified vessel or lesion type, unspecified whether angina present (Primary Dx); Type 2 diabetes mellitus with diabetic chronic kidney disease; Type 2 diabetes mellitus with stage 4 chronic kidney disease, with long-term current use of insulin (Multi); Mixed hyperlipidemia; Primary hypertension; Tremor, essential Start: 10-03-2024 End: 10-03-2024 ambulatory [facility] Start: 09-26-2024 End: 09-26-2024 ambulatory [facility] Start: 09-23-2024 End: 09-23-2024 Patient encounter procedure Robert Mortensen DPM Work Phone: [facility] Comment on above: Onychomycosis (Prima ry Dx); Peripheral vascular disease, 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HCC) Start: 09-23-2024 End: 09-23-2024 ambulatory PALMIRA CHACKO [facility] Start: 09-23-2024 End: 09-23-2024 Office outpatient visit 15 minutes Elaine Betts BUSINESS ANALYTICS ANALYST-PRECISION THREAD GRINDER OPERATOR Work Phone: [facility] [place] Comment on above: 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); Leukopenia, unspecified type; Myelodysplastic syndrome, 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Multi); Stage 4 chronic kidney disease (Multi); Thrombocytopenia (CMS-HCC); 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); Neutropenia, unspecified type (CMS-HCC) Start: 09-23-2024 End: 09-23-2024 ambulatory [facility] Start: 09-20-2024 End: 09-20-2024 Emergency department patient visit ARIS GONZALEZ [facility] Start: 09-09-2024 End: 09-09-2024 ambulatory [facility] Start: 08-26-2024 End: 08-26-2024 Office outpatient visit 25 minutes Elaine Betts BUSINESS ANALYTICS ANALYST-PRECISION THREAD GRINDER OPERATOR Work Phone: [facility] Office [facility] [place] Comment on above: 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); Leukopenia, unspecified type; Myelodysplastic syndrome, 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Multi); Stage 4 chronic kidney disease (Multi); Thrombocytopenia (CMS-HCC); 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); Neutropenia, unspecified type (CMS-HCC) Start: 08-26-2024 End: 08-26-2024 ambulatory [facility] Start: 08-12-2024 End: 08-12-2024 ambulatory [facility] Start: 08-04-2024 End: 08-04-2024 Office outpatient visit 25 minutes Elke Martin BUSINESS ANALYTICS ANALYST-PRECISION THREAD GRINDER OPERATOR, DNP Work Phone: [facility] Office [facility] Comment on above: Stage 4 chronic kidn ey disease (Multi) (Primary Dx); Primary hypertension; Mixed hyperlipidemia; Type 2 diabetes mellitus with stage 4 chronic kidney disease, with long-term current use of insulin (Multi); 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) Start: 08-04-2024 End: 08-04-2024 ambulatory ELKE M [facility] Ambulatory Start: 07-29-2024 End: 07-29-2024 ambulatory [facility] Start: 07-29-2024 End: 07-29-2024 Office outpatient visit 15 minutes Yisel Prado MD Work Phone: [facility] [place] Comment on above: 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); Leukopenia, unspecified type; Myelodysplastic syndrome, 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Multi); Stage 4 chronic kidney disease (Multi); Thrombocytopenia (CMS-HCC); 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); Neutropenia, unspecified type ([facility]-HCC) Start: 07-29-2024 End: 07-29-2024 ambulatory [facility] Start: 07-15-2024 End: 07-15-2024 ambulatory ELAINE Mcgill [facility] Start: 07-15-2024 End: 07-15-2024 [facility] Start: 07-12-2024 End: 07-12-2024 [facility]ulatory [facility] Start: 07-12-2024 End: 07-12-2024 Office outpatient visit 25 minutes Antione Harp DO Work Phone: [facility] Comment on above: Interstitial lung di sease (Multi) (Primary Dx) Start: 07-12-2024 End: 07-12-2024 ambulatory Palmira العراقي Facility:[facility] Start: 07-06-2024 End: 07-06-2024 Subsequent hospital visit by physician Chet Adams 1 [facility] Comment on above: Interstitial lung di sease (Multi) Start: 07-06-2024 End: 07-06-2024 ambulatory ANTIONE HARP [facility] Start: 07-05-2024 End: 07-05-2024 ambulatory [facility] Facility:[facility] Start: 07-01-2024 End: 07-01-2024 ambulatory [facility] Start: 07-01-2024 End: 07-01-2024 Office outpatient visit 15 minutes Yisel Prado MD Work Phone: [facility] [place] Comment on above: 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); Leukopenia, unspecified type; Myelodysplastic syndrome, 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Multi); Stage 4 chronic kidney disease (Multi); Thrombocytopenia (CMS-HCC); 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); Neutropenia, unspecified type (CMS-HCC) Start: 07-01-2024 End: 07-01-2024 ambulatory [facility] Start: 06-17-2024 End: 06-20-2024 ambulatory [facility] Start: 06-17-2024 End: 06-17-2024 Patient encounter procedure Robert Mortensen DPM Work Phone: [facility] Comment on above: Onychomycosis (Prima ry Dx); Peripheral vascular disease, 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HCC) Start: 06-17-2024 End: 06-17-2024 ambulatory PALMIRA العراقي [facility] Start: 06-06-2024 End: 06-09-2024 ambulatory [facility] Start: 05-20-2024 End: 05-20-2024 ambulatory [facility] Start: 05-20-2024 End: 05-20-2024 Office outpatient visit 15 minutes Palmira العراقي MD Work Phone: [facility] Comment on above: Disseminated herpes zoster (Primary Dx); S/P coronary artery stent placement; Class 2 severe obesity with serious comorbidity and body mass index (BMI) of 36.0 to 36.9 in adult, unspecified obesity type (Multi) 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); Leukopenia, unspecified type; Myelodysplastic syndrome, 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Multi); Stage 4 chronic kidney disease (Multi); Thrombocytopenia (CMS-HCC); 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); Neutropenia, unspecified type (CMS-HCC) Start: 05-20-2024 End: 05-20-2024 ambulatory PALMIRA Tracy [facility] Start: 05-16-2024 End: 05-16-2024 [facility] Start: 05-09-2024 End: 05-09-2024 ambulatory [facility] Start: 04-22-2024 End: 04-22-2024 ambulatory [facility] Start: 04-12-2024 End: 04-12-2024 [facility] Start: 04-08-2024 End: 04-08-2024 ambulatory [facility] Start: 04-08-2024 End: 04-08-2024 ambulatory [facility] Start: 04-08-2024 End: 04-08-2024 Office outpatient visit 15 minutes Yisel Prado MD Work Phone: [facility] Office Building [facility] Comment on above: 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); Leukopenia, unspecified type; Myelodysplastic syndrome, 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Multi); Stage 4 chronic kidney disease (Multi); Thrombocytopenia (CMS-HCC); 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); Neutropenia, unspecified type (CMS-HCC) Start: 04-06-2024 End: 04-06-2024 ambulatory [facility] Facility:[facility] Start: 03-31-2024 End: 03-31-2024 Assay of hemosiderin, quant Palmira العراقي MD Work Phone: [facility] Work Phone: Start: 03-31-2024 End: 03-31-2024 Patient encounter procedure Palmira العراقي MD Work Phone: [facility] Comment on above: Routine general medi danitza examination at health care facility (Primary Dx); 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); Leukopenia, unspecified type; 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, unspecified vessel or lesion type, unspecified whether angina present; Type 2 diabetes mellitus with stage 4 chronic kidney disease, with long-term current use of insulin (Multi); Neutropenia, unspecified type (CMS-HCC); Primary hypertension; Mixed hyperlipidemia; DWAIN on CPAP; Thrombocytopenia (CMS-HCC); Tremor, essential; Essential (primary) hypertension; Type 2 diabetes mellitus with diabetic chronic kidney disease (Multi); Chronic kidney disease, stage 3 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Multi); Gastric ulcer, unspecified chronicity, unspecified whether gastric ulcer hemorrhage or perforation present; Low magnesium level Start: 03-25-2024 End: 03-25-2024 Office outpatient visit 25 minutes Antione Harp DO Work Phone: [facility] Comment on above: Interstitial lung di sease (Multi) (Primary Dx); Hypoxemia 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); Leukopenia, unspecified type; Myelodysplastic syndrome, 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Multi); Stage 4 chronic kidney disease (Multi); Thrombocytopenia (CMS-HCC); 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); Neutropenia, unspecified type (CMS-HCC) Start: 03-21-2024 End: 03-21-2024 ambulatory PALMIRA Molina [facility] Start: 03-16-2024 End: 03-16-2024 Patient encounter procedure Robert Mortensen DPM Work Phone: [facility] Comment on above: Onychomycosis (Prima ry Dx); Peripheral vascular disease, 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HCC) Start: 03-15-2024 End: 03-15-2024 ambulatory [facility] Facility:[facility] Start: 03-15-2024 End: 03-15-2024 Patient encounter procedure Harvey Adams MD Work Phone: Ophthalmology Comment on above: 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); Type 2 diabetes mellitus without retinopathy (HCC); Dry eyes, bilateral; Pseudophakia of both eyes; Essential hypertension; Sleep apnea, unspecified type Start: 03-14-2024 End: 03-14-2024 Office outpatient visit 25 minutes Vianney Judge MD Work Phone: [facility] Comment on above: Dyslipidemia (Primar y Dx); Primary hypertension; Coronary artery disease, unspecified vessel or lesion type, unspecified whether angina present, unspecified whether kiowa tribe or transplanted heart Start: 03-11-2024 End: 03-11-2024 Office outpatient visit 40 minutes Yisel Prado MD Work Phone: [facility] Office [facility] Comment on above: 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); Leukopenia, unspecified type; Myelodysplastic syndrome, 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Multi); Stage 4 chronic kidney disease (Multi); Thrombocytopenia (CMS-HCC); 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); Neutropenia, unspecified type (CMS-HCC) Start: 02-24-2024 End: 02-24-2024 Office outpatient visit 25 minutes Antione Harp DO Work Phone: [facility] Comment on above: Interstitial lung di sease (Multi) (Primary Dx); Hypoxemia Start: 02-16-2024 End: 02-17-2024 [facility] Start: 02-16-2024 End: 02-16-2024 Subsequent hospital visit by physician Gilberto Byrd 1 [facility] Comment on above: 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); Leukopenia, unspecified type; Myelodysplastic syndrome, 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Multi) Start: 02-09-2024 End: 02-09-2024 Office outpatient visit 15 minutes [facility] BUSINESS ANALYTICS ANALYST-PRECISION THREAD GRINDER OPERATOR Work Phone: [facility] Office [facility] [place] Comment on above: 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 Fariba العراقي Work Phone: [facility] Start: 02-03-2024 End: 02-03-[address] Palmira العراقي Work Phone: [facility] Work Phone: Start: 02-03-2024 End: 02-03-[address] Palmira العراقي [facility] Work Phone: Start: 02-03-2024 End: 02-03-2024 Office outpatient visit 25 minutes Elke OLIVIER, [facility] Work Phone: [facility] Comment on above: Stage 4 chronic kidn ey disease (CMS/HCC) (Primary Dx); Primary hypertension; Mixed hyperlipidemia; Type 2 diabetes mellitus with stage 4 chronic kidney disease, with long-term current use of insulin (CMS/HCC); Anemia due to stage 3b chronic kidney disease (CMS/HCC) Start: 01-22-2024 End: 01-22-2024 Subsequent hospital visit by physician Chet [address] Comment on above: 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); Leukopenia, unspecified type Start: 01-12-2024 End: 01-12-2024 Office outpatient visit 25 minutes Elaine Betts APRN-PRECISION THREAD GRINDER OPERATOR Work Phone: [facility] [place] Comment on above: Myelodysplastic synd ede, 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CMS/HCC) (Primary Dx); 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); Leukopenia, unspecified type Start: 01-01-2024 End: 01-01-[address] Palmira العراقي Work Phone: [facility] Work Phone: Start: 12-23-2023 End: 12-23-2023 Office outpatient visit 25 minutes Palmira العراقي MD Work Phone: [facility] Comment on above: Coronary artery dise ase involving kiowa tribe heart, unspecified vessel or lesion type, unspecified whether angina present (Primary Dx); Anemia due to stage 4 chronic kidney disease ([facility]/HCC); Leukopenia, unspecified type; Type 2 diabetes mellitus with stage 4 chronic kidney disease, with long-term current use of insulin ([facility]); Neutropenia, unspecified type ([facility]); Primary hypertension; Mixed hyperlipidemia; DWAIN on CPAP; Thrombocytopenia ([facility]); Tremor, essential; Essential (primary) hypertension; Type 2 diabetes mellitus with diabetic chronic kidney disease ([facility]); Chronic kidney disease, stage 3 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[facility]); Edema, unspecified type; Myelodysplastic syndrome, 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[facility]/HCC); Peripheral vascular disease, 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[facility]); Other pancytopenia ([facility]/HCC) Start: 12-16-2023 End: 12-16-2023 Office outpatient visit 15 minutes Robert Mortensen DPToño Work Phone: [facility] Comment on above: Right foot ulcer, li mited to breakdown of skin (HCC) (Primary Dx) Start: 12-15-2023 End: 12-15-2023 Office outpatient visit 15 minutes Elaine Betts BUSINESS ANALYTICS ANALYST-PRECISION THREAD GRINDER OPERATOR Work Phone: [facility] Comment on above: Leukopenia, unspecif ied type (Primary Dx); Anemia due to stage 4 chronic kidney disease ([facility]/HCC) Start: 11-30-2023 End: 11-30-[address] Palmira العراقي Work Phone: [facility] Work Phone: Start: 11-30-2023 End: 11-30-[address] Palmira العراقي Work Phone: [facility]-Laboratory Work Phone: Start: 11-03-2023 End: 11-03-2023 Office outpatient visit 15 minutes Elaine Betts BUSINESS ANALYTICS ANALYST-PRECISION THREAD GRINDER OPERATOR Work Phone: [facility] [place] Comment on above: 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) Start: 10-16-2023 End: 10-16-[address] Palmira العراقي Work Phone: [facility] Work Phone: Start: 10-16-2023 End: 10-16-[address] Palmira العراقي Work Phone: [facility]-Ultrasound, [facility] Work Phone: Start: 10-14-2023 End: 10-14-2023 Office outpatient visit 15 minutes Robert Mortensen DPM Work Phone: [facility] Comment on above: Right foot ulcer, li mited to breakdown of skin (HCC) (Primary Dx) Start: 09-29-2023 End: 09-29-[address] Palmira العراقي Work Phone: [facility] Work Phone: Start: 09-22-2023 End: 09-22-2023 Office outpatient visit 15 minutes Elaine Betts BUSINESS ANALYTICS ANALYST-PRECISION THREAD GRINDER OPERATOR Work Phone: [facility] Comment on above: 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) (Primary Dx) Start: 09-18-2023 End: 09-18-2023 Office outpatient visit 15 minutes Robert Mortensen DPM Work Phone: [facility] Comment on above: Onychomycosis (Prima ry Dx); Peripheral vascular disease, 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HCC) Start: 08-10-2023 End: 08-10-2023 Office outpatient visit 25 minutes Elaine Betts BUSINESS ANALYTICS ANALYST-PRECISION THREAD GRINDER OPERATOR Work Phone: [facility] Comment on above: Stage 3b chronic kid cyndee disease (CMS/HCC) (Primary Dx); 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) Start: 08-03-2023 End: 08-03-2023 Office outpatient visit 15 minutes Elke Martin APRN-LIZZ, [facility] Work Phone: [facility] Building Comment on above: Chronic kidney disea se, stage 4 (severe) (CMS/HCC) (Primary Dx); Stage 3b chronic kidney disease (CMS/HCC); Type 2 diabetes mellitus with stage 3b chronic kidney disease, with long-term current use of insulin (CMS/HCC); Primary hypertension; Mixed hyperlipidemia; 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) Start: 07-28-2023 End: 07-28-2023 Office outpatient visit 25 minutes Palmira العراقي MD Work Phone: [facility] Comment on above: Anemia, unspecified type; Gastric ulcer, unspecified chronicity, unspecified whether gastric ulcer hemorrhage or perforation present; 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 Elaine Betts Fac ility:[id number] Start: 05-15-2023 End: 05-15-2023 Patient encounter procedure Mariah Can MD Work Phone: [facility] Comment on above: Ulnar neuropathy at elbow, unspecified laterality (Primary Dx); Carpal tunnel syndrome, bilateral Start: 04-23-2023 End: 04-23-[address] Palmira العراقي Work Phone: [facility] Work Phone: Start: 04-23-2023 End: 04-23-[address] Palmira العراقي Work Phone: [facility]-Laboratory Start: 04-20-2023 End: 04-20-2023 Emergency department patient visit Dr. Palmira العراقي Work Phone: [facility]-Emergency Department Start: 04-09-2023 Non-patient / Non-visit Dr. Fariba العراقي Work Phone: [facility] Start: 04-09-2023 Non-patient / Non-visit Dr. Fariba العراقي Work Phone: [facility] Start: 04-08-2023 Non-patient / Non-visit Dr. Fariba العراقي Work Phone: [facility] Start: 04-08-2023 Non-patient / Non-visit Dr. Fariba العراقي Work Phone: [facility] Start: 04-07-2023 Non-patient / Non-visit Dr. Fariba العراقي Work Phone: [facility] Start: 04-07-2023 Non-patient / Non-visit Dr. Fariba العراقي Work Phone: [facility] Start: 04-06-2023 Non-patient / Non-visit Dr. Fariba العراقي Work Phone: [facility] Start: 04-06-2023 End: 04-09-2023 Evaluation and management of inpatient Dr. Palmira العراقي Work Phone: [facility]-Progressive Care Unit Start: 04-02-2023 Office outpatient vi sit 15 minutes Palmira العراقي [facility] [place] [id number] Work Phone: Start: 03-17-2023 End: 03-20-2023 Evaluation and management of inpatient Reshma Neil Facility:[id number] Start: 03-13-2023 End: 03-13-2023 Patient encounter procedure Robert Mortensen DPM Work Phone: [facility] Comment on above: Peripheral vascular disease, 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HCC) (Primary Dx); Onychomycosis Start: 03-09-2023 End: 03-09-2023 Patient encounter procedure Sangeetha Thomas OD Work Phone: Ophthalmology Comment on above: Type 2 diabetes britni itus without retinopathy (HCC) (Primary Dx); Dry eyes, bilateral; Vitreous floaters of both eyes; Lamellar macular hole of left eye Start: 02-16-2023 ambulatory Ms. Elaine Betts Fac ility:[id number] Start: 02-13-2023 ambulatory Ms. Elaine Betts Fac ility:[id number] Start: 02-11-2023 Refill Swetha mosqueda LPN [facility] Start: 12-19-2022 End: 12-19-2022 Patient encounter procedure Robert Mortensen DPM Work Phone: [facility] Comment on above: Onychomycosis (Prima ry Dx); Peripheral vascular disease, 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HCC) Start: 12-11-2022 AUDIT Palmira العراقي Work Phone: [facility] Work Phone: Start: 12-09-2022 AUDIT Palmira العراقي Work Phone: [facility] Work Phone: Start: 11-14-2022 ambulatory Ms. Emma Hawkins Fac ility:[id number] Start: 11-04-2022 Chart Update Palmira العراقي Work Phone: [facility] Vishal 3 DO Work Phone: Start: 10-20-[address] Isamar Sandhu Facility:[id number] Start: 10-02-2022 ambulatory Ms. Emma Hawkins Fac ility:[id number] Start: 09-22-2022 End: 09-22-2022 ambulatory Margarita Tolbert Facility:[id number] Start: 09-09-2022 AUDIT Palmira العراقي Work Phone: [facility] Work Phone: Start: 08-27-2022 ambulatory ROSLYN PARRA Facility: [id number] Start: 08-19-2022 Rx Renewal Palmira العراقي Work Phone: [facility] 205 DO Work Phone: Start: 2022 Office outpatient vi sit 25 minutes Palmira العراقي Work Phone: [facility] Work Phone: Start: 07-03-2022 Office outpatient vi sit 15 minutes Palmira العراقي Work Phone: [facility] Vishal 3 DO Work Phone: Start: 06-29-2022 Chart Update Palmira Pinonorf Work Phone: [facility] Vishal 3 DO Work Phone: Start: 06-27-2022 End: 06-27-2022 Patient encounter procedure Robert COLLINSM Work Phone: [facility] Comment on above: Peripheral vascular disease, 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HCC) (Primary Dx); Onychomycosis Start: 06-16-2022 Office outpatient vi sit 25 minutes Jae Gannon Work Phone: [facility] Work Phone: Start: 06-16-2022 End: 06-16-2022 Office outpatient visit 25 minutes Vianney Judge MD Work Phone: [facility] Comment on above: Coronary artery dise ase, unspecified vessel or lesion type, unspecified whether angina present, unspecified whether kiowa tribe or transplanted heart (Primary Dx); Primary hypertension; Dyslipidemia Start: 06-04-2022 AUDIT Jae Recio Harp ster Work Phone: [facility] 205 DO Work Phone: Start: 05-13-2022 AUDIT Jae Recio Harp ster Work Phone: [facility] 205 DO Work Phone: Start: 04-16-2022 Office outpatient vi sit 25 minutes Jae Gannon Work Phone: [facility] Work Phone: Start: 04-11-2022 Chart Update Jae Recio Harp ster Work Phone: [facility] Work Phone: Start: 04-09-2022 AUDIT Jae Recio Harp ster Work Phone: [facility] Work Phone: Start: 04-01-2022 Result Review Jae Recio Harp ster Work Phone: [facility] 205 DO Work Phone: Start: 03-26-2022 End: 03-26-2022 Patient encounter procedure Harvey Adams MD Work Phone: Ophthalmology Comment on above: 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); Type 2 diabetes mellitus without retinopathy (HCC); Punctate keratitis of both eyes; Vitreous floaters of both eyes; Pseudophakia of both eyes Start: 03-14-2022 End: 03-14-2022 Patient encounter procedure Robert Donte DPM Work Phone: [facility] Comment on above: Onychomycosis (Prima ry Dx); Peripheral vascular disease, 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HCC) Start: 02-26-2022 AUDIT Jae Recio Harp ster Work Phone: [facility] 205 DO Work Phone: Start: 02-24-2022 AUDIT Jae Recio Harp ster Work Phone: [facility] 205 DO Work Phone: Start: 02-17-2022 Chart Update Jae Recio Harp ster Work Phone: [facility] 205 DO Work Phone: Start: 02-12-2022 Office outpatient vi sit 25 minutes Jae Bourgeoister Work Phone: [facility] 205 DO Work Phone: Start: 02-12-2022 Patient encounter procedure Jae Gannon Work Phone: [facility] Work Phone: Start: 02-05-2022 AUDIT Jae Recio Harp ster Work Phone: [facility] Work Phone: Start: 01-15-2022 AUDIT Jae Rceio Harp ster Work Phone: [facility] 205 DO Work Phone: Start: 01-01-2022 Office outpatient vi sit 15 minutes Jae J Mansfield Work Phone: [facility] Vishal 3 DO Work Phone: Start: 12-27-2021 Chart Update Jae Recio Harp ster Work Phone: [facility] Vishal 3 DO Work Phone: Start: 12-13-2021 End: 12-13-2021 Patient encounter procedure Robert Mortensen DPM Work Phone: [facility] Comment on above: Onychomycosis (Prima ry Dx); Peripheral vascular disease, 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HCC) Start: 11-26-2021 FUV, Provider: Jose J Martin, Status: Pen, Time: 11:00 AM Jae Recio [place] Work Phone: [facility] Vishal 3 DO Work Phone: Start: 11-25-2021 Chart Update Jae Recio Harp ster Work Phone: [facility] Vishal 3 DO Work Phone: Start: 11-20-2021 AUDIT Jae Recio Harp ster Work Phone: [facility] Vishal 3 DO Work Phone: Start: 10-21-2021 AUDIT Jae Almita Harp ster Work Phone: [facility] Work Phone: Start: 10-04-2021 Office outpatient vi sit 15 minutes Jae Perezpster Work Phone: [facility] Work Phone: Start: 10-04-2021 Patient encounter procedure Jae Perezpster Work Phone: [facility] Work Phone: Start: 09-24-2021 Chart Update Jae Recio Harp ster Work Phone: [facility] Work Phone: Start: 09-13-2021 End: 09-13-2021 Office outpatient visit 10 minutes Robert Mortensen [facility] Work Phone: [facility] Comment on above: Onychomycosis (Prima ry Dx); Peripheral vascular disease, 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HCC); Xerosis of skin Start: 08-19-2021 AUDIT Jae Recio Harp ster Work Phone: [facility] Work Phone: Start: 08-07-2021 Office outpatient vi sit 25 minutes Jae Recio [place] Work Phone: [facility] Work Phone: Start: 07-29-2021 Chart Update Jae J Harp ster Work Phone: [facility] Work Phone: Start: 07-18-2021 Office outpatient vi sit 25 minutes Jae Recio [place] Work Phone: [facility] Work Phone: Start: 07-18-2021 Patient encounter procedure Jae Perezpster Work Phone: [facility] Work Phone: Start: 07-11-2021 Chart Update Jae Recio Harp ster Work Phone: [facility] Work Phone: Start: 06-17-2021 AUDIT Jae Recio Harp ster Work Phone: [facility] V[facility]al 3 DO Work Phone: Start: 06-06-2021 End: 06-06-2021 Orders Only Paloma Wolfe RN [facility] dalia Comment on above: Coronary artery dise ase involving kiowa tribe coronary artery of kiowa tribe heart without angina pectoris (Primary Dx) Start: 06-06-2021 End: 06-06-2021 Office outpatient visit 15 minutes Aris Meredith MD Work Phone: [facility] Office Comment on above: Essential hypertensi on (Primary Dx); 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; Mixed hyperlipidemia Start: 05-28-2021 End: 05-28-2021 Chart abstracting Robert Mortensen DPM Work Phone: [facility] Comment on above: Angina pectoris (HCC ); Arthritis; BPH with obstruction/lower urinary tract symptoms; Capsulitis; Cataract, unspecified cataract type, unspecified laterality; Dumping syndrome; Edema of foot; Foot cramps; Liver disease; Loss of weight; Nocturia; OM (onychomycosis); PAOD (peripheral arterial occlusive disease) (HCC); Swollen feet; Synovitis and tenosynovitis; Tinea pedis, unspecified laterality Start: 05-24-2021 Office outpatient vi sit 15 minutes Jae Gannon Work Phone: [facility] Work Phone: Start: 05-24-2021 Patient encounter procedure Jae Gannon Work Phone: [facility] DO Work Phone: Start: 05-21-2021 Chart Update Jae Perezp ster Work Phone: [facility] V[facility] 3 DO Work Phone: Start: 05-21-2021 AUDIT Jae Recio Harp ster Work Phone: [facility] V[facility] 3 DO Work Phone: Start: 05-13-2021 AUDIT Jae Recio Harp ster Work Phone: -[facility] Work Phone: Start: 03-25-2021 AUDIT Jae Almita Chrispooja ster Work Phone: -[facility] Work Phone: Start: 01-30-2021 Patient encounter procedure Martin Rick II QT-Exikwri-Xiapwjg Work Phone: Start: 01-21-2021 Patient encounter procedure Martin Rick II RN-Oqzvjqn-Rehqnyg Work Phone: Start: 12-31-2020 Office outpatient vi sit 25 minutes Jae Gannon Work Phone: [facility]Kepelfd[facility]izkctz Work Phone: Start: 12-31-2020 Patient encounter procedure Martin Rick II WU-Vsipzcc-Hynnucv Work Phone: Start: 12-19-2020 Patient encounter procedure Martin Rick II PG-Ykxbbei-Clnajwi Work Phone: Start: 11-30-2020 Patient encounter procedure Nancy Rios [facility] Work Phone: Start: 11-16-2020 End: 11-16-2020 Orders Only Nayely Walsh Work Phone: [facility] Start: 10-24-2020 Patient encounter procedure Nancy Amherst [facility] Work Phone: Start: 09-13-2020 Patient encounter procedure Nancy Amherst [facility] Work Phone: Start: 07-02-2020 Patient encounter procedure Nancy Amherst [facility] Work Phone: Start: 06-12-2020 End: 06-13-2020 Patient encounter procedure ARIS MEREDITH 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; Essential hypertension; Mixed hyperlipidemia Start: 06-08-2020 End: 06-08-2020 Documentation procedure Aris Liraashley Work Phone: [facility] Start: 06-08-2020 End: 06-08-2020 Patient encounter procedure ARIS SULY MEREDITH [facility] Start: 05-31-2020 End: 05-31-2020 Office outpatient visit 25 minutes Aris Suly Meredith Work Phone: [facility] Office Comment on above: Essential hypertensi on (Primary Dx); 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; Mixed hyperlipidemia Start: 04-30-2020 Patient encounter procedure Martin Rick II PY-Vqwazjz-Ldtxfoo Work Phone: Start: 04-23-2020 Patient encounter procedure Matrin Rick II VM-Ffyvdev-Fzqhwtp Work Phone: Start: 03-21-2020 Patient encounter procedure Martin Rick II LW-Bafqmgj-Shevudx Work Phone: Start: 03-14-2020 Patient encounter procedure Martin Rick II QN-Lmgvaee-Aywacly Work Phone: Start: 01-13-2020 Patient encounter procedure Martin iRck II -[facility] Work Phone: Start: 01-09-2020 Patient encounter procedure Martin Rick II -[facility] Work Phone: Start: 12-26-2019 Patient encounter procedure Martin Rick II -[facility] Work Phone: Start: 11-17-2019 Patient encounter procedure Ottoniel Eycarlos [facility] Work Phone: Start: 11-14-2019 Patient encounter procedure [facility]ielvalerie [facility] Work Phone: Start: 11-10-2019 Patient encounter procedure Jae Gannon [facility] Work Phone: Start: 11-09-2019 Patient encounter procedure Jae Gannon [facility] Work Phone: Start: 11-07-2019 Patient encounter procedure [facility] F[facility] Work Phone: Start: 11-04-2019 Patient encounter procedure Marimar Farias [facility] Work Phone: Start: 10-31-2019 Patient encounter procedure [facility]eli Sandhu [facility] Work Phone: Start: 10-27-2019 Ophthalmic examinati on and evaluation Jae Gannon Work Phone: [facility] Work Phone: Comment on above: 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; vitreous floaters of both eyes; pseudophakia of both eyes.; Start: 10-19-2019 Patient encounter procedure Jae Ganonn [facility] Work Phone: Start: 10-12-2019 Patient encounter procedure Jae Gannon [facility] Work Phone: Start: 09-15-2019 Patient encounter procedure Jae Gannon [facility] Work Phone: Start: 08-10-2019 Patient encounter procedure Jae Gannon [facility] Work Phone: Start: 05-12-2019 End: 05-12-2019 Office outpatient visit 15 minutes Aris Meredith Work Phone: [facility] Office Comment on above: Essential hypertensi on (Primary Dx); Mixed hyperlipidemia; 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 Start: 02-10-2019 End: 02-10-2019 Office outpatient visit 15 minutes Rosalina Woodward Work Phone: [facility] Office Comment on above: Essential hypertensi on; 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; Type 2 diabetes mellitus with hyperglycemia, without long-term current use of insulin (HCC) Start: 01-19-2019 End: 01-19-2019 Patient encounter procedure Jae Gannon Work Phone: [facility] Comment on above: Carpal tunnel syndro me, bilateral (Primary Dx); Tingling of both upper extremities; Ulnar neuropathy at elbow, unspecified laterality Start: 11-16-2018 Patient encounter procedure Aris Meredith Facility:[place] Start: 11-16-2018 End: 11-16-2018 Patient encounter procedure Aris Meredith Work Phone: [facility] Comment on above: Essential hypertensi on; 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 Start: 11-05-2017 Office outpatient vi sit 15 minutes Aris Meredith Work Phone: [facility] Patient encounter procedure Jae Gannon Work Phone: [facility] Work Phone: Procedures Date Procedure Procedure Detail Performing Clinician Start: 03-24-2025 Serum inorganic phosphate measurement Dr. Palmira العراقي MD Work Phone: Start: 03-24-2025 Vitamin D, 25-hydroxy measurement Dr. Fariba العراقي MD Work Phone: Comment on above: Vitamin D StatusDeficiency: <20 ng/mL (5 0nmol/L)Insufficiency: 20-30 ng/mL (50-75 nmol/L)Sufficiency: 30-100 ng/mL (75-250 nmol/L)Toxicity: >100 ng/mL (>250 nmol/L) Start: 02-03-2025 Glucose quantitative blood xcpt reagent strip Medhat Gutierrez MD Work Phone: Start: 02-03-2025 Sars-cov-2 detection by dna/rna Medhat Gutierrez MD Work Phone: Start: 02-03-2025 Glucose quantitative blood xcpt reagent strip Medhat Gutierrez MD Work Phone: Start: 02-03-2025 Basic metabolic panel calcium total Medhat Gutierrez MD Work Phone: Start: 02-02-2025 Glucose quantitative blood xcpt reagent strip Medhat Gutierrez MD Work Phone: Start: 02-02-2025 Glucose quantitative blood xcpt reagent strip Medhat Gutierrez MD Work Phone: Start: 02-02-2025 Glucose quantitative blood xcpt reagent strip Medhat Gutierrez MD Work Phone: Start: 02-02-2025 Glucose quantitative blood xcpt reagent strip Radha Tam MD Work Phone: Start: 02-02-2025 Basic metabolic panel calcium total Radha Tam MD Work Phone: Start: 02-01-2025 Glucose quantitative blood xcpt reagent strip Radha Tam MD Work Phone: Start: 02-01-2025 Glucose quantitative blood xcpt reagent strip Radha Tam MD Work Phone: Start: 02-01-2025 Glucose quantitative blood xcpt reagent strip Radha Tam MD Work Phone: Start: 02-01-2025 Glucose quantitative blood xcpt reagent strip Dinesh Boyle MD Work Phone: Start: 02-01-2025 Comprehensive metabolic panel Jose J jackman DO Work Phone: Start: 01-31-2025 Glucose quantitative blood xcpt reagent strip Dinesh Boyle MD Work Phone: Start: 01-31-2025 Glucose quantitative blood xcpt reagent strip Dinesh Boyle MD Work Phone: Start: 01-31-2025 Electroencephalogram w/rec awake&asleep Dinesh Boyle MD Work Phone: Start: 01-31-2025 Glucose quantitative blood xcpt reagent strip Dinesh Boyle MD Work Phone: Start: 01-31-2025 Dup-scan xtr veins complete bilateral study Elaine Mauricio MD Work Phone: Start: 01-31-2025 Glucose quantitative blood xcpt reagent strip Tim Renner MD Work Phone: Start: 01-31-2025 Comprehensive metabolic panel Elaine aguilar MD Work Phone: Start: 01-30-2025 Glucose quantitative blood xcpt reagent strip Tim Renner MD Work Phone: Start: 01-30-2025 Urnls dip stick/tablet rgnt auto w/o microscopy Ravi Bills DO Work Phone: Start: 01-30-2025 End: 01-30-2025 Basic metabolic panel calcium total Ravi Bills DO Work Phone: Start: 01-30-2025 Blood typing serologic rh (d) Ravi Bills DO Work Phone: Start: 01-30-2025 Troponin I.cardiac panel - Serum or Plasma by High sensitivity method Ravi Bills DO Work Phone: Start: 01-30-2025 PREPARE RBC Ravi Bills DO Work Phone: Start: 01-30-2025 Ecg routine ecg w/least 12 lds trcg only w/o i&r Ravi Bills DO Work Phone: Start: 01-06-2025 Ct thorax w/o contrast material Antione Baptistei DO Work Phone: Start: 01-02-2025 Comprehensive metabolic panel Elaine gomez BUSINESS ANALYTICS ANALYST-PRECISION THREAD GRINDER OPERATOR Work Phone: Start: 12-09-2024 Assay of phosphorus inorganic Dr. Nazanin العراقي MD Work Phone: Start: 12-09-2024 Measurement of renal function Dr. Nazanin العراقي MD Work Phone: Comment on above: GFR Calc Start: 10-31-2024 Follow-up visit Follow-up PALMIRA العراقي Start: 10-24-2024 Comprehensive metabolic panel Elaine gomez BUSINESS ANALYTICS ANALYST-PRECISION THREAD GRINDER OPERATOR Work Phone: Start: 10-24-2024 RBC shape Nom (Bld) Elaine Betts BUSINESS ANALYTICS ANALYST-PRECISION THREAD GRINDER OPERATOR Work Phone: Start: 09-26-2024 Lipid 1996 panel - Serum or Plasma Kathy العراقي MD Work Phone: Start: 08-26-2024 Comprehensive metabolic panel Elaine gomez BUSINESS ANALYTICS ANALYST-PRECISION THREAD GRINDER OPERATOR Work Phone: Start: 08-26-2024 RBC shape Nom (Bld) Elaine Betts BUSINESS ANALYTICS ANALYST-PRECISION THREAD GRINDER OPERATOR Work Phone: Start: 07-29-2024 Comprehensive metabolic panel Elaine gomez BUSINESS ANALYTICS ANALYST-PRECISION THREAD GRINDER OPERATOR Work Phone: Start: 04-08-2024 Comprehensive metabolic panel Elaine gomez BUSINESS ANALYTICS ANALYST-PRECISION THREAD GRINDER OPERATOR Work Phone: Start: 04-08-2024 RBC shape Nom (Bld) Elaine Betts BUSINESS ANALYTICS ANALYST-PRECISION THREAD GRINDER OPERATOR Work Phone: Start: 03-21-2024 CBC W Auto Differential panel - Blood PALMIRA العراقي Start: 03-21-2024 Comprehensive metabolic 2000 panel - Serum or Plasma PALMIRA العراقي Start: 03-21-2024 Hemoglobin A1c/Hemoglobin.total in Blood PALMIRA العراقي Start: 03-15-2024 Computerized ophthalmic imaging retina Harvey Adams MD Work Phone: Start: 03-11-2024 Comprehensive metabolic panel Elaine gomez BUSINESS ANALYTICS ANALYST-PRECISION THREAD GRINDER OPERATOR Work Phone: Start: 03-11-2024 RBC shape Nom (Bld) Elaine Betts BUSINESS ANALYTICS ANALYST-PRECISION THREAD GRINDER OPERATOR Work Phone: Start: 02-16-2024 IR BIOPSY BONE MARROW ELAINE BETTS Start: 02-16-2024 CBC panel - Blood by Automated count ELAINE BETTS Start: 02-16-2024 Blood count complete automated Jayesh Tolbert MD Work Phone: Start: 02-09-2024 Blood count complete auto&auto difrntl wbc Elaine Betts BUSINESS ANALYTICS ANALYST-PRECISION THREAD GRINDER OPERATOR Work Phone: Start: 02-05-2024 Ct thorax w/o contrast material Antione Harp DO Work Phone: Start: 01-22-2024 Ct thorax w/o contrast material Elaine Betts BUSINESS ANALYTICS ANALYST-PRECISION THREAD GRINDER OPERATOR Work Phone: Start: 12-21-2023 Lipid 1996 panel - Serum or Plasma Kathy العراقي MD Work Phone: Start: 12-15-2023 Comprehensive metabolic panel Elaine gomez BUSINESS ANALYTICS ANALYST-PRECISION THREAD GRINDER OPERATOR Work Phone: Start: 10-16-[address] liver [address] Cara العراقي Work Phone: Start: 07-18-2023 Lipid 1996 panel - Serum or Plasma Kathy العراقي MD Work Phone: Start: 04-08-[address] Palmira العراقي Work Phone: Start: 04-06-[address] Palmira العراقي Work Phone: Start: 03-16-2023 Antibody screen Ms. Emma Hawkins Comment on above: Performed By: #### CBCDF #### [address] [address] Start: 03-09-2023 Computerized ophthalmic imaging retina Sangeetha Thomas OD Work Phone: Start: 03-09-2023 Ophthalmic examination and evaluation Robert Mortensen Jr., DPM Work Phone: Start: 01-30-2023 Lipid 1996 panel - Serum or Plasma Kathy العراقي MD Work Phone: Start: 01-05-2023 History of placement of stent for coronary artery disease S/P coronary artery stent placement Palmira العراقي MD Work Phone: Start: 10-31-2022 Microalbumin [Mass/volume] in Urine by Test strip Robert Mortensen Jr., AMALIA Work Phone: Start: 03-26-2022 Computerized ophthalmic imaging retina Harvey Adams MD Work Phone: Start: 03-26-2022 Ophthalmic examination and evaluation Vianney Judge MD Work Phone: Start: 06-06-2021 Ecg routine ecg w/least 12 lds w/i&r Aris Meredith MD Work Phone: Start: 01-30-2021 Assay of prostate specific antigen total Martin Rick II Start: 11-14-2020 Basic metabolic 1998 panel - Serum or Plasma Nancy Amherst Start: 10-31-2020 Ophthalmic examination and evaluation Robert Mortensen Jr., DPM Work Phone: Start: 10-24-2020 25 hydroxy includes fractions if performed Nancy Amherst Start: 10-24-2020 Assay of blood/uric acid Nancy Amherst Start: 10-24-2020 Assay of magnesium Nancy Amherst Start: 10-24-2020 Assay of parathormone Nancy Amherst Start: 10-24-2020 Assay of phosphorus inorganic Nancy R oyal Start: 10-24-2020 Protein total xcpt refractometry urine Nancy Amherst Start: 10-24-2020 Thyroid stimulating immune globulins tsi Nancy Amherst Start: 10-24-2020 Urnls dip stick/tablet rgnt auto w/o microscopy Nancy Amherst Start: 05-31-2020 12 lead ECG Aris Meredith Work Phone: Start: 04-30-2020 Assay of prostate specific antigen total Martin Rick II Start: 04-23-2020 Basic metabolic 1997 panel - Serum or Plasma Martin Rick II Start: 03-21-2020 Creatinine other source Martin Rick II Start: 03-14-2020 Basic metabolic 1997 panel - Serum or Plasma Martin Rick II Start: 03-14-2020 Hemoglobin glycosylated a1c Martin Rick II Start: 03-14-2020 Lipid panel Martin Rick II Start: 11-09-2019 Basic metabolic 1998 panel - Serum or Plasma Jae Gannon Start: 11-09-2019 CBC W Auto Differential panel - Blood Jae Gannon Start: 11-09-2019 Hemoglobin glycosylated a1c Jae Chrisp ster Start: 11-09-2019 Pulse Oximetry Jae Gannon Start: 11-16-2018 Echocardiography Aris Meredith Work Phone: Start: 09-23-2016 Microalbumin [Mass/volume] in Urine by Test strip Robert Mortensen Jr., DPM Work Phone: Cholecystectomy Jaerenetta Perezp ster Hernia repair Jae Santos er History of placement of stent for coronary artery disease S/P coronary artery stent placement Jae Gannon Work Phone: History of placement of stent for coronary artery disease S/P coronary artery stent placement Palmiar العراقي MD Work Phone: Insertion of arterial stent Jae Gannon Measurement of occul t blood in stool specimen using immunoassay Dr. Palmira العراقي Work Phone: Plan of Treatment Date Care Activity Detail Author Start: 11-16-2025 Depression screening using PHQ-9 (Patient Health Questionnaire 9) score Depression Screening/Follow-Up (PHQ-2/9) [facility] Start: 09-26-2025 Lipid panel Lipid Panel [facility] Start: 06-16-2025 End: 06-16-2025 Patient encounter procedure 06/16/2025 11:00 AM EDT Office Visit [facility] [address] [place] [address] Robert Mortensen Jr., DPM [address] [place] [address] [facility] Start: 05-29-2025 End: 02-27-2026 Comprehensive metabolic 2000 panel - Serum or Plasma Comprehensive metabolic panel Lab Routine Stage 4 chronic kidney disease (Multi) Expected: 05/29/2025 (Approximate), Expires: 02/27/2026 [facility] Work Phone: Comment on above: Expected: 05/29/2025 (Approximate), Expires: 02/27/2026 Start: 05-29-2025 End: 05-29-2025 Patient encounter procedure 05/29/2025 11:00 AM EDT Office Visit [facility] Medical Office [facility] [address] [place] [phone] Elke Martin, BUSINESS ANALYTICS ANALYST-PRECISION THREAD GRINDER OPERATOR, DNP [address] [place] [address] [facility] Start: 05-15-2025 End: 05-15-2025 Patient encounter procedure 05/15/2025 10:00 AM EDT Office Visit [facility] [address] [place] [id number] Antione Harp, [address] [place] [address] [facility] Start: 05-02-2025 Hemoglobin A1c measurement [facility] Start: 04-24-2025 End: 04-24-2025 ambulatory 04/24/2025 11:00 AM EDT Infusion [facility] [place] [phone] [facility] Office [facility] Start: 04-24-2025 End: 04-24-2025 Patient encounter procedure 04/24/2025 11:00 AM EDT Office Visit [facility] Office Building [place] [address] Elaine Betts, BUSINESS ANALYTICS ANALYST-PRECISION THREAD GRINDER OPERATOR [address] [facility] [address] [place] [address] [facility] Start: 04-10-2025 End: 04-10-2025 ambulatory 04/10/2025 10:00 AM EDT Infusion [facility] Office [facility] [address] [address] [facility] Start: 04-05-2025 End: 04-05-2025 Patient encounter procedure 04/05/2025 9:40 AM EDT Office Visit [address] [phone] Palmira العراقي MD [address] [place] [id number] [facility] Start: 04-01-2025 Medicare Annual Well ness Visit Medicare Annual Wellness Visit (AWV) [facility] Start: 03-31-2025 Medicare Wellness Visit Medica re Wellness Visit [facility] Start: 03-31-2025 End: 03-31-2025 Patient encounter procedure 03/31/2025 10:30 AM EDT Office Visit [facility] [address] [place] [phone] Robert Mortensen Jr., DPM [address] [place] [address] [facility] Start: 03-28-2025 End: 03-28-2025 ambulatory 03/28/2025 10:00 AM EDT Infusion [facility] [address] [place] [address] [facility] Start: 05-19-2025 eGFR Diabetes eGFR Diabetes [facility] Start: 03-20-2025 Urine screening for protein eGFR Nayana eleazar [facility] Start: 03-15-2025 End: 03-15-2025 Patient encounter procedure 03/15/2025 3:00 PM EDT Office Visit [facility] [address] [place] [address] Harvey Adams MD [address] [place] [address] [facility] Comment on above: [facility] Start: 03-15-2025 [facility] Start: 03-13-2025 End: 03-13-2026 Prepare RBC: 1 Units, Irradiated Prepare RBC: 1 Units, Irradiated Blood Bank Routine Anemia due to stage 4 chronic kidney disease Myelodysplastic syndrome, 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Multi) Expected: 03/13/2025 (Approximate), Expires: 03/13/2026 [facility] Service Area Work Phone: Comment on above: Expected: 03/13/2025 (Approximate), Expires: 03/13/2026 Start: 03-13-2025 End: 03-13-2025 ambulatory 03/13/2025 11:00 AM EDT Infusion [facility] Office [address] [phone] [facility] Office [facility] Start: 03-13-2025 End: 03-13-2025 Patient encounter procedure 03/13/2025 10:30 AM EDT Office Visit [facility] Office [place] [address] [place] [phone] Elaine Betts, BUSINESS ANALYTICS ANALYST-PRECISION THREAD GRINDER OPERATOR [address] [place] [address] [facility] Start: 03-09-2025 Glaucoma screening Diabetes: R etinopathy Screening [facility] Start: 02-28-2025 End: 02-28-2025 Patient encounter procedure 02/28/2025 11:20 AM EDT Office Visit [facility] [address] [facility] [address] [place] [address] Palmira العراقي MD [address] [facility] [address] [place] [address] [facility] Start: 02-27-2025 End: 02-27-2026 Basic metabolic 2000 panel - Serum or Plasma Basic metabolic panel Lab Routine Stage 4 chronic kidney disease (Multi) Expected: 02/27/2025 (Approximate), Expires: 02/27/2026 [facility] Service Area Work Phone: Comment on above: Expected: 02/27/2025 (Approximate), Expires: 02/27/2026 Start: 02-27-2025 End: 02-27-2025 Patient encounter procedure 02/27/2025 11:00 AM EDT Office Visit [facility] Medical Office Building [address] [place] [address] Elke Martin, BUSINESS ANALYTICS ANALYST-PRECISION THREAD GRINDER OPERATOR, DNP [address] [facility] 3 [place] [address] [facility] Medical Office [facility] Start: 02-27-2025 End: 02-27-2025 ambulatory [facility] Building [facility] Start: 02-13-2025 End: 02-13-2026 Cobalamin (Vitamin B12) [Mass/volume] in Serum or Plasma [facility] Work Phone: Comment on above: Expected: 02/13/2025 (Approximate), Expires: 02/13/2026 Start: 02-13-2025 End: 02-13-2026 Folate [Mass/volume] in Serum or Plasma [facility] Area Work Phone: Comment on above: Expected: 02/13/2025 (Approximate), Expires: 02/13/2026 Start: 02-13-2025 End: 02-20-2025 Hemoglobin.gastrointestinal [Presence] in Stool --1st specimen Occult Blood, Stool Microbiology Routine Anemia due to stage 4 chronic kidney disease Myelodysplastic syndrome, 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Multi) Expected: 02/13/2025 (Approximate), Expires: 02/20/2025 [facility] Work Phone: Comment on above: Expected: 02/13/2025 (Approximate), Expires: 02/20/2025 Start: 02-13-2025 End: 02-13-2025 ambulatory 02/13/2025 9:30 AM EDT Infusion [facility] Office [address] [place] [phone] [facility] Office [facility] Start: 02-13-2025 End: 02-13-2025 Patient encounter procedure 02/13/2025 9:00 AM EDT Office Visit [address] [place] [address] Elaine Betts S, BUSINESS ANALYTICS ANALYST-PRECISION THREAD GRINDER OPERATOR [address] [facility] [address] [place] [address] [facility] Start: 02-01-2025 End: 02-01-2025 Patient encounter procedure [facility] Comment on above: Stage 4 chronic kidn ey disease (Multi) Start: 01-30-2025 End: 01-30-2025 ambulatory 01/30/2025 2:00 PM EDT Infusion [facility] Office [facility] [place] [address] [facility] Start: 01-16-2025 End: 01-16-2025 ambulatory 01/16/2025 9:00 AM EDT Infusion [facility] Office [facility] [place] [address] [facility] Office [facility] Start: 01-13-2025 End: 01-13-2025 Patient encounter procedure 01/13/2025 10:00 AM EDT Office Visit [place] [id number] [place] [address] Antione aHrp DO [address] [place] [address] [facility] Start: 01-06-2025 End: 01-06-2025 Patient encounter procedure 01/06/2025 11:15 AM EST Appointment [facility] [address] [place] [address] [facility] Start: 01-03-2025 End: 07-12-2025 CT Chest WO contrast CT chest wo IV contrast Imaging Routine Interstitial lung disease (Multi) Expected: 01/03/2025, Expires: 07/12/2025 [facility] Service Area Work Phone: Comment on above: Expected: 01/03/2025 , Expires: 07/12/2025 Start: 01-03-2025 End: 01-03-2025 Patient encounter procedure 01/03/2025 10:40 AM EST Office Visit [address] [address] Palmira العراقي MD [address] [place] [address] [facility] Start: 01-01-2025 End: 10-03-2025 CBC W Auto Differential panel - Blood CBC and Auto Differential Lab Routine 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, unspecified vessel or lesion type, unspecified whether angina present Type 2 diabetes mellitus with stage 4 chronic kidney disease, with long-term current use of insulin (Multi) Mixed hyperlipidemia Primary hypertension Tremor, essential Expected: 01/01/2025 (Approximate), Expires: 10/03/2025 [facility] Service Area Work Phone: Comment on above: Expected: 01/01/2025 (Approximate), Expires: 10/03/2025 Start: 01-01-2025 End: 10-03-2025 Cobalamin (Vitamin B12) [Mass/volume] in Serum or Plasma Vitamin B12 Lab Routine 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, unspecified vessel or lesion type, unspecified whether angina present Type 2 diabetes mellitus with stage 4 chronic kidney disease, with long-term current use of insulin (Multi) Mixed hyperlipidemia Primary hypertension Tremor, essential Expected: 01/01/2025 (Approximate), Expires: 10/03/2025 [facility] Work Phone: Comment on above: Expected: 01/01/2025 (Approximate), Expires: 10/03/2025 Start: 01-01-2025 End: 10-03-2025 Comprehensive metabolic 2000 panel - Serum or Plasma Comprehensive Metabolic Panel Lab Routine 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, unspecified vessel or lesion type, unspecified whether angina present Type 2 diabetes mellitus with stage 4 chronic kidney disease, with long-term current use of insulin (Multi) Mixed hyperlipidemia Primary hypertension Tremor, essential Expected: 01/01/2025 (Approximate), Expires: 10/03/2025 [facility] Work Phone: Comment on above: Expected: 01/01/2025 (Approximate), Expires: 10/03/2025 Start: 01-01-2025 End: 10-03-2025 Hemoglobin A1c/Hemoglobin.total in Blood Hemoglobin A1C Lab Routine 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, unspecified vessel or lesion type, unspecified whether angina present Type 2 diabetes mellitus with stage 4 chronic kidney disease, with long-term current use of insulin (Multi) Mixed hyperlipidemia Primary hypertension Tremor, essential Expected: 01/01/2025 (Approximate), Expires: 10/03/2025 [facility] Work Phone: Comment on above: Expected: 01/01/2025 (Approximate), Expires: 10/03/2025 Start: 01-01-2025 End: 10-03-2025 Lipid 1996 panel - Serum or Plasma Lipid Panel Lab Routine 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, unspecified vessel or lesion type, unspecified whether angina present Type 2 diabetes mellitus with stage 4 chronic kidney disease, with long-term current use of insulin (Multi) Mixed hyperlipidemia Primary hypertension Tremor, essential Expected: 01/01/2025 (Approximate), Expires: 10/03/2025 [facility] Work Phone: Comment on above: Expected: 01/01/2025 (Approximate), Expires: 10/03/2025 Start: 01-01-2025 End: 10-03-2025 TSH with reflex to Free T4 if abnormal TSH with reflex to Free T4 if abnormal Lab Routine 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, unspecified vessel or lesion type, unspecified whether angina present Type 2 diabetes mellitus with stage 4 chronic kidney disease, with long-term current use of insulin (Multi) Mixed hyperlipidemia Primary hypertension Tremor, essential Expected: 01/01/2025 (Approximate), Expires: 10/03/2025 [facility] Work Phone: Comment on above: Expected: 01/01/2025 (Approximate), Expires: 10/03/2025 Start: 12-30-2024 End: 12-30-2024 Patient encounter procedure 12/30/2024 10:15 AM EST Office Visit [facility] [address] [place] [address] Robert Mortensen Jr., DPM [address] [place] [address] [facility] Start: 12-27-2024 Hemoglobin A1c measurement [facility] Start: 12-21-2024 Hepatitis B surface antibody level LDL Cholesterol [facility] Start: 12-21-2024 Lipid panel Lipid Panel [facility] Start: 12-05-2024 End: 12-05-2024 ambulatory 12/05/2024 9:30 AM EST Infusion [facility] [address] [place] [address] [facility] Start: 12-05-2024 End: 12-05-2024 Patient encounter procedure 12/05/2024 9:00 AM EST Office Visit [facility] [address] [place] [phone] Elaine Betts APRN-PRECISION THREAD GRINDER OPERATOR [address] [place], [place] [phone] [facility] Start: 11-28-2024 DTaP/Tdap/Td Vaccine s (2 - Td or Tdap) DTaP/Tdap/Td Vaccines (2 - Td or Tdap) [facility] Start: 11-28-2024 Tetanus vaccination Tetanus: Every 1 0yrs [facility] Start: 11-28-2024 Urine microalbumin profile DTa P,Tdap,Td Vaccine (2 - Td or Tdap) [facility] Start: 11-21-2024 End: 11-21-2024 ambulatory 11/21/2024 9:00 AM EST Infusion [facility] [address] [place] [address] [facility] Start: 11-07-2024 End: 11-07-2024 ambulatory 11/07/2024 11:30 AM EST Infusion [facility] [address] [place] [address] [facility] Start: 11-04-2024 End: 08-04-2025 Comprehensive metabolic 2000 panel - Serum or Plasma Comprehensive metabolic panel Lab Routine Stage 4 chronic kidney disease (Multi) Expected: 11/04/2024 (Approximate), Expires: 08/04/2025 [facility] Work Phone: Comment on above: Expected: 11/04/2024 (Approximate), Expires: 08/04/2025 Start: 11-03-2024 End: 11-03-2024 Patient encounter procedure 11/03/2024 11:00 AM EST Office Visit [address] [place] [address] Elke Martin, BUSINESS ANALYTICS ANALYST-PRECISION THREAD GRINDER OPERATOR, DNP [address] [place] [address] [facility] Medical Office [facility] Start: 10-31-2024 End: 10-31-2024 Patient encounter procedure 10/31/2024 4:00 PM EST Office Visit [place] [address] [address] Palmira العراقي MD [address] [facility] [address] [place] [address] [facility] Start: 10-24-2024 End: 10-24-2024 ambulatory 10/24/2024 9:00 AM EST [facility] [place] [address] [facility] Office [facility] Start: 10-24-2024 End: 10-24-2024 Patient encounter procedure 10/24/2024 8:30 AM EST Office Visit [facility] [address] [place] [address] Elaine Betts APRN-CNP [address] [place] [address] [facility] Office [facility] Start: 10-10-2024 End: 10-10-2024 ambulatory 10/10/2024 2:00 PM EST Infusion [facility] Office [facility] [place] [address] [place] [address] [facility] Office [facility] Start: 10-03-2024 End: 10-03-2024 Patient encounter procedure [facility] Start: 09-23-2024 End: 09-23-2024 Patient encounter procedure 09/23/2024 10:30 AM EST Office Visit [facility] Office [facility] [place] [phone] Yisel Prado MD [address] [place] [address] [facility] Office [facility] Start: 09-23-2024 End: 09-23-2024 ambulatory 09/23/2024 10:15 AM EST Infusion [facility] [address] [place] [address] [facility] Start: 09-21-2024 Hemoglobin A1c measurement A1C [facility] Start: 09-16-2024 End: 09-16-2024 Patient encounter procedure 09/16/2024 11:15 AM EST Office Visit [facility] [address] [place] [place] [phone] Robert Mortensen Jr., DPM [address] [place] [place] [address] [facility] Physician [facility] Start: 09-09-2024 End: 09-09-2024 ambulatory 09/09/2024 10:00 AM EST Infusion [facility] Office [address] [place] [address] [facility] Start: 08-26-2024 End: 08-26-2024 ambulatory 08/26/2024 1:30 PM EDT Infusion [facility] Office [address] [place] [phone] [facility] Office [facility] Start: 08-26-2024 End: 08-26-2024 Patient encounter procedure 08/26/2024 12:30 PM EDT Office Visit [facility] [address] [place] [address] Yisel Prado MD [address] [place] [address] [facility] Start: 08-12-2024 End: 08-12-2024 ambulatory 08/12/2024 10:30 AM EDT Infusion [facility] Office [facility] [address] [place] [address] [facility] Start: 08-04-2024 End: 08-04-2025 Basic metabolic 2000 panel - Serum or Plasma Basic metabolic panel Lab Routine Stage 4 chronic kidney disease (Multi) Expected: 08/04/2024 (Approximate), Expires: 08/04/2025 [facility] Service Area Work Phone: Comment on above: Expected: 08/04/2024 (Approximate), Expires: 08/04/2025 Start: 08-04-2024 End: 02-02-2025 Microalbumin/Creatinine [Mass Ratio] in Urine Albumin , Urine Random Lab Routine Stage 4 chronic kidney disease (CMS/HCC) Expected: 08/04/2024 (Approximate), Expires: 02/02/2025 [facility] Work Phone: Comment on above: Expected: 08/04/2024 (Approximate), Expires: 02/02/2025 Start: 08-04-2024 End: 02-02-2025 Urinalysis complete panel - Urine Urinalysis with Reflex Microscopic Lab Routine Stage 4 chronic kidney disease (CMS/HCC) Expected: 08/04/2024 (Approximate), Expires: 02/02/2025 [facility] Work Phone: Comment on above: Expected: 08/04/2024 (Approximate), Expires: 02/02/2025 Start: 08-04-2024 End: 08-04-2024 Patient encounter procedure 08/04/2024 11:00 AM EDT Office Visit [facility] Medical Office [facility] [address] [place] [address] Elke Martin, BUSINESS ANALYTICS ANALYST-PRECISION THREAD GRINDER OPERATOR, DNP [address] [place] [address] [facility] Office [facility] Start: 07-29-2024 End: 07-29-2024 ambulatory 07/29/2024 1:30 PM EDT Infusion [facility] Office [facility] [place] [place] [address] [facility] Office [facility] Start: 07-29-2024 End: 07-29-2024 Patient encounter procedure 07/29/2024 1:00 PM EDT Office Visit [facility] Office [facility] [place] [address] [place] [address] Yisel Prado MD [address] [place] [phone] [facility] Start: 07-18-2024 Lipid panel Lipid Panel [facility] Start: 07-15-2024 End: 07-15-2024 ambulatory 07/15/2024 2:00 PM EDT Infusion [facility] Office [facility] [place] [address] [place] [address] [facility] Start: 07-12-2024 End: 07-12-2024 Patient encounter procedure 07/12/2024 10:00 AM EDT Office Visit [facility] [address] [place] [phone] Antione Harp DO [address] [place] [phone] [facility] Start: 07-05-2024 End: 07-05-2024 Patient encounter procedure 07/05/2024 10:00 AM EDT Appointment [facility] [address] [place] [address] [facility] Start: 07-04-2024 End: 07-04-2024 Patient encounter procedure 07/04/2024 10:00 AM EDT Appointment [facility] [address] [place] [address] [facility] Start: 07-03-2024 COVID-19 Vaccine ( season) COVID-19 Vaccine () [facility] Start: 07-03-2024 COVID-19 Vaccine () COVID-19 Vaccine () [facility] Start: 07-03-2024 End: 03-25-2025 CT Chest WO contrast CT chest wo IV contrast Imaging Routine Interstitial lung disease (Multi) Expected: 07/03/2024, Expires: 03/25/2025 [facility] Service Area Work Phone: Comment on above: Expected: 07/03/2024 , Expires: 03/25/2025 Start: 07-03-2024 Influenza vaccination Influenz a Vaccine (#1) [facility] Start: 07-01-2024 End: 07-01-2024 ambulatory 07/01/2024 1:30 PM EDT Infusion [facility] Office [facility] [address] [address] [facility] Start: 07-01-2024 End: 07-01-2024 Patient encounter procedure 07/01/2024 1:00 PM EDT Office Visit [facility] [place] [address] Yisel Prado MD [address] [place], [place] [address] [facility] Office [facility] Start: 06-21-2024 Hemoglobin A1c measurement Nayana betes: Hemoglobin A1C [facility] Start: 06-20-2024 Hemoglobin A1c measurement HbA1C [facility] Start: 06-20-2024 End: 06-20-2024 ambulatory 06/20/2024 1:30 PM EDT [facility]fusion [facility] [place] [address] [facility] Start: 06-17-2024 End: 06-17-2024 ambulatory 06/17/2024 1:00 PM EDT [facility]fusion [facility] [place] [address] [facility] Start: 06-17-2024 End: 06-17-2024 Patient encounter procedure 06/17/2024 11:00 AM EDT Office Visit [facility] Physician [facility] Pod[facility] [address] [place] [address] Robert Mortensen Jr., DPM [address] [place] [place] [address] [facility] Physician [facility] Start: 06-03-2024 End: 06-03-2024 ambulatory [facility] Start: 05-20-2024 End: 05-20-2024 ambulatory 05/20/2024 1:30 PM EDT [facility]fusion [facility] [place] [address] [facility] Start: 05-20-2024 End: 05-20-2024 Patient encounter procedure 05/20/2024 1:00 PM EDT Office Visit [facility] [place] [phone] Yisel Prado MD [address] [place] [address] [facility] Start: 05-06-2024 End: 05-06-2024 ambulatory 05/06/2024 11:30 AM EDT Infusion [facility] [place] [address] [place] [address] [facility] Start: 05-03-2024 End: 05-03-2024 ambulatory 05/03/2024 2:00 PM EDT [facility]fusion [facility] [address] [place] [address] [facility] Start: 04-22-2024 End: 04-22-2024 ambulatory 04/22/2024 1:00 PM EDT [facility]fusion [facility] [address] [place] [address] [facility] Start: 04-19-2024 End: 04-19-2024 ambulatory 04/19/2024 1:00 PM EDT Infusion [facility] [place] [address] [place] [address] [facility] Start: 04-08-2024 End: 04-08-2024 ambulatory 04/08/2024 1:30 PM EDT Infusion [facility] Office [facility] [place] [address] [place] [address] [facility] Start: 04-08-2024 End: 04-08-2024 Patient encounter procedure 04/08/2024 1:00 PM EDT Office Visit [facility] [place] [address] Yisel Prado MD [address] [place] [address] [facility] Start: 04-05-2024 End: 04-05-2024 ambulatory [facility] Start: 03-31-2024 End: 03-31-2024 Patient encounter procedure 03/31/2024 2:00 PM EDT Office Visit [facility] [address] [place] [address] Palmira العراقي MD [address] [place] [address] [place] [address] [facility] Start: 03-25-2024 End: 03-25-2024 ambulatory 03/25/2024 1:00 PM EDT Infusion [facility] [address] [place] [address] [facility] Start: 03-25-2024 End: 03-25-2024 Patient encounter procedure [facility] Start: 03-23-2024 End: 03-23-2024 Patient encounter procedure 03/23/2024 9:20 AM EDT Office Visit [facility] [address] [place] [address] Palmira العراقي MD [address] [place] [address] [facility] Start: 03-22-2024 End: 12-23-2024 CBC W Auto Differential panel - Blood CBC and Auto Differential Lab Routine Type 2 diabetes mellitus with diabetic chronic kidney disease (CMS/HCC) Chronic kidney disease, stage 3 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CMS/HCC) Expected: 03/22/2024 (Approximate), Expires: 12/23/2024 [facility] Work Phone: Comment on above: Expected: 03/22/2024 (Approximate), Expires: 12/23/2024 Start: 03-22-2024 End: 12-23-2024 Comprehensive metabolic 2000 panel - Serum or Plasma Comprehensive Metabolic Panel Lab Routine Type 2 diabetes mellitus with diabetic chronic kidney disease ([facility]/HCC) Chronic kidney disease, stage 3 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[facility]/HCC) Expected: 03/22/2024 (Approximate), Expires: 12/23/2024 [facility] Service Area Work Phone: Comment on above: Expected: 03/22/2024 (Approximate), Expires: 12/23/2024 Start: 03-22-2024 End: 12-23-2024 Hemoglobin A1c/Hemoglobin.total in Blood Hemoglobin A1C Lab Routine Type 2 diabetes mellitus with diabetic chronic kidney disease ([facility]/HCC) Chronic kidney disease, stage 3 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[facility]/HCC) Expected: 03/22/2024 (Approximate), Expires: 12/23/2024 [facility] Work Phone: Comment on above: Expected: 03/22/2024 (Approximate), Expires: 12/23/2024 Start: 03-22-2024 End: 03-22-2024 ambulatory 03/22/2024 1:15 PM EDT Infusion [facility] [address] [place] [address] [facility] Start: 03-20-2024 Hemoglobin A1c measurement [facility] Start: 03-18-2024 End: 03-18-2024 Patient encounter procedure 03/18/2024 11:15 AM EDT Office Visit [facility] [address] [place] [address] Robert Mortensen Jr., DPM [address] [place] [place] [address] [facility] Start: 03-16-2024 End: 03-16-2024 Patient encounter procedure 03/16/2024 11:15 AM EDT Office Visit [facility] [address] [place] [address] Robert Mortensen Jr., DPM [address] [place] [place] [address] [facility] Start: 03-14-2024 End: 03-14-2024 Patient encounter procedure 03/14/2024 9:40 AM EDT Office Visit [facility] [address] [place] [address] Vianney Judge MD [address] [place] [address] [facility] Start: 03-11-2024 End: 03-11-2024 ambulatory 03/11/2024 9:30 AM EDT Infusion [facility] [place] [address] [facility] Start: 03-11-2024 End: 03-11-2024 Patient encounter procedure 03/11/2024 9:00 AM EDT Office Visit [facility] [place] [address] Yisel Prado MD [address] [place] [address] [facility] Start: 03-09-2024 Glaucoma screening [facility] Start: 03-09-2024 Hepatitis C antibody , confirmatory test DILATED RETINAL EXAM [facility] Start: 03-08-2024 End: 03-08-2024 ambulatory 03/08/2024 1:30 PM EDT Infusion [facility] [place] [address] [facility] Start: 03-08-2024 End: 03-08-2024 Patient encounter procedure 03/08/2024 1:00 PM EDT Office Visit [facility] [place] [phone] Elaine Betts, BUSINESS ANALYTICS ANALYST-PRECISION THREAD GRINDER OPERATOR [address] [place] [address] [facility] Start: 02-29-2024 Hemoglobin A1c measurement [facility] Start: 02-23-2024 End: 02-23-2024 ambulatory 02/23/2024 2:45 PM EDT Infusion [address] [place] [address] [facility] Start: 02-18-2024 End: 02-18-2024 Patient encounter procedure 02/18/2024 9:20 AM EDT Office Visit [facility] [address] [place] [phone] Antione Harp DO [address] [place] [phone] [facility] Start: 02-16-2024 End: 02-16-2024 Patient encounter procedure 02/16/2024 11:00 AM EDT Appointment [facility] [address] [place] [address] [facility] Start: 02-13-2024 Medicare Annual Well ness Visit Medicare Annual Wellness Visit (AWV) [facility] Start: 02-12-2024 History and physical examination, annual for health maintenance Wellness Visit [facility] Start: 02-09-2024 End: 02-09-2024 Patient encounter procedure 02/09/2024 1:30 PM EDT [facility] [address] [place] [phone] Elaine Betts, BUSINESS ANALYTICS ANALYST-PRECISION THREAD GRINDER OPERATOR [address] [place] [address] [facility] Start: 02-09-2024 End: 02-09-2024 ambulatory 02/09/2024 1:00 PM EDT Infusion [address] [place] [place] [address] [facility] Start: 02-05-2024 End: 02-05-2024 Patient encounter procedure [facility] Start: 02-03-2024 End: 02-02-2025 Basic metabolic 2000 panel - Serum or Plasma Basic metabolic panel Lab Routine Stage 4 chronic kidney disease (CMS/HCC) Expected: 02/03/2024 (Approximate), Expires: 02/02/2025 [facility] Service Area Work Phone: Comment on above: Expected: 02/03/2024 (Approximate), Expires: 02/02/2025 Start: 02-03-2024 End: 02-03-2024 Patient encounter procedure 02/03/2024 10:00 AM EDT Office Visit [facility] [address] [place] [address] Elke Martin, BUSINESS ANALYTICS ANALYST-PRECISION THREAD GRINDER OPERATOR, DNP [address] [phone] [facility] Start: 02-02-2024 End: 08-03-2024 Basic metabolic 2000 panel - Serum or Plasma Basic metabolic panel Lab Routine Chronic kidney disease, stage 4 (severe) (CMS/HCC) Expected: 02/02/2024 (Approximate), Expires: 08/03/2024 [facility] Service Area Work Phone: Comment on above: Expected: 02/02/2024 (Approximate), Expires: 08/03/2024 Start: 02-02-2024 End: 08-03-2024 CBC panel - Blood by Automated count CBC Lab Routine Chronic kidney disease, stage 4 (severe) (CMS/HCC) Expected: 02/02/2024 (Approximate), Expires: 08/03/2024 [facility] Work Phone: Comment on above: Expected: 02/02/2024 (Approximate), Expires: 08/03/2024 Start: 02-02-2024 End: 08-03-2024 Microalbumin/Creatinine [Mass Ratio] in Urine Albumin , Urine Random Lab Routine Chronic kidney disease, stage 4 (severe) (CMS/HCC) Expected: 02/02/2024 (Approximate), Expires: 08/03/2024 [facility] Work Phone: Comment on above: Expected: 02/02/2024 (Approximate), Expires: 08/03/2024 Start: 01-31-2024 Hepatitis B surface antibody level LDL CHOLESTEROL [facility] Start: 01-31-2024 Lipid panel Lipid Panel [facility] Start: 01-29-2024 End: 01-29-2024 Patient encounter procedure 01/29/2024 9:00 AM EDT Appointment [facility] [address] [place] [address] [facility] Start: 01-26-2024 End: 01-26-2024 Patient encounter procedure 01/26/2024 2:30 PM EDT Office Visit [facility] [address] [address] Elaine Betts, BUSINESS ANALYTICS ANALYST-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) Leukopenia, unspecified type Expected: 01/13/2024, Expires: 12/15/2024 [facility] Work Phone: Comment on above: Expected: 01/13/2024 , Expires: 12/15/2024 Start: 01-12-2024 End: 01-12-2024 ambulatory 01/12/2024 2:30 PM EDT Infusion [facility] [address] [place] [address] [facility] Start: 01-12-2024 End: 12-15-2024 Comprehensive metabolic 2000 panel - Serum or Plasma Comprehensive metabolic panel Lab Routine 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) Leukopenia, unspecified type Expected: 01/12/2024 (Approximate), Expires: 12/15/2024 [facility] Work Phone: Comment on above: Expected: 01/12/2024 (Approximate), Expires: 12/15/2024 Start: 01-12-2024 End: 01-11-2025 CT Chest and Abdomen and Pelvis WO contrast CT chest abdomen pelvis wo IV contrast Imaging Routine 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) Leukopenia, unspecified type Expected: 01/12/2024, Expires: 01/11/2025 [facility] Work Phone: Comment on above: Expected: 01/12/2024 , Expires: 01/11/2025 Start: 01-12-2024 End: 01-11-2025 Guidance for biopsy of Bone marrow IR biopsy bone marrow Imaging Routine 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) Leukopenia, unspecified type Myelodysplastic syndrome, 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CMS/HCC) Expected: 01/12/2024, Expires: 01/11/2025 [facility] Work Phone: Comment on above: Expected: 01/12/2024 , Expires: 01/11/2025 Start: 01-12-2024 End: 01-12-2024 Patient encounter procedure 01/12/2024 2:00 PM EDT Office Visit [facility] [address] [address] Elaine Betts, BUSINESS ANALYTICS ANALYST-PRECISION THREAD GRINDER OPERATOR [address] [place] [address] [facility] Start: 01-05-2024 End: 01-05-2024 ambulatory 01/05/2024 2:30 PM EST Infusion [address] [place] [address] [facility] Start: 01-02-2024 End: 11-03-2024 CBC W Auto Differential panel - Blood CBC and Auto Differential Lab Routine 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) Expected: 01/02/2024, Expires: 11/03/2024 [facility] Service Area Work Phone: Comment on above: Expected: 01/02/2024 , Expires: 11/03/2024 Start: 01-02-2024 End: 11-03-2024 Comprehensive metabolic 2000 panel - Serum or Plasma Comprehensive metabolic panel Lab Routine 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) Expected: 01/02/2024 (Approximate), Expires: 11/03/2024 [facility] Work Phone: Comment on above: Expected: 01/02/2024 (Approximate), Expires: 11/03/2024 Start: 01-01-2024 Patient referral [facility] Work Phone: Start: 12-29-2023 End: 12-29-2023 ambulatory 12/29/2023 2:00 PM EST Infusion [address] [place] [address] [facility] Start: 12-29-2023 End: 12-15-2024 CBC W Auto Differential panel - Blood CBC and Auto Differential Lab Routine 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) Leukopenia, unspecified type Expected: 12/29/2023 (Approximate), Expires: 12/15/2024 [facility] Work Phone: Comment on above: Expected: 12/29/2023 (Approximate), Expires: 12/15/2024 Start: 12-29-2023 End: 12-15-2024 Comprehensive metabolic 2000 panel - Serum or Plasma Comprehensive Metabolic Panel Lab Routine 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) Leukopenia, unspecified type Expected: 12/29/2023 (Approximate), Expires: 12/15/2024 [facility] Work Phone: Comment on above: Expected: 12/29/2023 (Approximate), Expires: 12/15/2024 Start: 12-23-2023 End: 12-23-2023 Patient encounter procedure [facility] Comment on above: 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); Leukopenia, unspecified type Start: 12-16-2023 End: 12-16-2023 Patient encounter procedure 12/16/2023 9:30 AM EST Office Visit [facility] [address] [place] [address] Robert Mortensen Jr., DPM [address] [place] [phone] [facility] Start: 12-15-2023 End: 12-15-2024 Flow Cytometry Test [facility] Service Area Work Phone: Comment on above: Expected: 12/15/2023 (Approximate), Expires: 12/15/2024 Start: 12-15-2023 End: 12-15-2023 Patient encounter procedure 12/15/2023 1:30 PM EST Office Visit [facility] [address] [phone] Elaine Betts APRN-PRECISION THREAD GRINDER OPERATOR [address] [place] [address] [facility] Start: 12-15-2023 End: 12-15-2023 ambulatory [facility] Start: 11-30-2023 Acute hepatitis 2000 panel - Serum [facility] Start: 11-30-2023 [id number]. tumor marker [Units/volume] in Serum or Plasma [facility] Start: 11-30-2023 Angiotensin converti ng enzyme [Enzymatic activity/volume] in Serum or Plasma [facility] Start: 11-30-2023 Ceruloplasmin [Mass/ volume] in Serum or Plasma [facility] Start: 11-30-2023 Copper [Moles/volume ] in Serum or Plasma [facility] Start: 11-30-2023 Haptoglobin [Mass/vo lume] in Serum or Plasma [facility] Start: 11-30-2023 Smooth muscle Ab [Pr esence] in Serum [facility] Start: 11-30-2023 Transferrin [Mass/vo lume] in Serum or Plasma [facility] Start: 11-30-2023 [facility] Start: 11-24-2023 End: 11-24-2023 ambulatory 11/24/2023 2:45 PM EST Infusion [facility] [address] [place] [address] [facility] Start: 11-03-2023 End: 09-22-2024 CBC W Auto Differential panel - Blood CBC and Auto Differential Lab Routine 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) Expected: 11/03/2023, Expires: 09/22/2024 [facility] Work Phone: Comment on above: Expected: 11/03/2023 , Expires: 09/22/2024 Start: 11-03-2023 End: 09-22-2024 Cobalamin (Vitamin B12) [Mass/volume] in Serum or Plasma Vitamin B12 Lab Routine 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) Expected: 11/03/2023, Expires: 09/22/2024 [facility] Work Phone: Comment on above: Expected: 11/03/2023 , Expires: 09/22/2024 Start: 11-03-2023 End: 09-22-2024 Comprehensive metabolic 2000 panel - Serum or Plasma Comprehensive Metabolic Panel Lab Routine 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) Expected: 11/03/2023, Expires: 09/22/2024 [facility] Work Phone: Comment on above: Expected: 11/03/2023 , Expires: 09/22/2024 Start: 11-03-2023 End: 09-22-2024 Ferritin [Mass/volume] in Serum or Plasma Ferritin Lab Routine 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) Expected: 11/03/2023, Expires: 09/22/2024 [facility] Service Area Work Phone: Comment on above: Expected: 11/03/2023 , Expires: 09/22/2024 Start: 11-03-2023 End: 09-22-2024 Iron and Iron binding capacity panel - Serum or Plasma Iron and TIBC Lab Routine 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) Expected: 11/03/2023, Expires: 09/22/2024 [facility] Work Phone: Comment on above: Expected: 11/03/2023 , Expires: 09/22/2024 Start: 11-03-2023 End: 11-03-2023 Patient encounter procedure 11/03/2023 2:00 PM EST Office Visit [facility] [address] [address] Elaine Betts, BUSINESS ANALYTICS ANALYST-PRECISION THREAD GRINDER OPERATOR [address] [place] [address] [facility] Start: 11-03-2023 End: 11-03-2023 ambulatory [facility] Start: 11-02-2023 Advance Directive Discussion Advance Directive Discussion [facility] Start: 11-02-2023 Behavioral Health Screening Be havioral Health Screening [facility] Start: 10-31-2023 Urine screening for protein Urine Mi croalbumin [facility] Start: 10-17-2023 Hemoglobin A1c measurement [facility] Start: 10-13-2023 End: 10-13-2023 ambulatory 10/13/2023 1:00 PM EST Infusion [facility] [address] [place] [address] [facility] Start: 10-09-2023 End: 10-09-2023 Patient encounter procedure 10/09/2023 10:45 AM EST Office Visit [facility] [address] [place] [phone] Robert Mortensen Jr., DPM [address] [place] [address] [facility] Start: 09-22-2023 End: 09-22-2023 ambulatory 09/22/2023 9:30 AM EST Infusion [facility] [address] [address] [facility] Start: 09-22-2023 End: 09-22-2023 Patient encounter procedure 09/22/2023 9:00 AM EST Office Visit [place] [address] [place] [address] Elaine Betts, BUSINESS ANALYTICS ANALYST-PRECISION THREAD GRINDER OPERATOR [address] [place] [phone] [facility] Start: 09-15-2023 End: 09-15-2023 Patient encounter procedure 09/15/2023 2:20 PM EST Office Visit [facility] [address] [place] [place] [phone] Vianney Judge MD [address] [place] [address] [facility] Start: 08-31-2023 RNVISIT, Provider: [facility] [address],[id number], Status: Pen, Time: 9:00 AM RNVISIT, Provider: [facility] [address],[id number], Status: Pen, Time: 9:00 AM [id number] Work Phone: Start: 08-31-2023 End: 08-31-2023 ambulatory [facility] Start: 08-31-2023 End: 08-31-2023 Patient encounter procedure [facility] Start: 08-18-2023 End: 08-18-2023 Patient encounter procedure 08/18/2023 2:00 PM EDT Office Visit [facility] [address] [place] [address] [place] [address] [place] [address] [facility] Start: 08-10-2023 RNVISIT, Provider: [facility] [address],[id number], Status: Pen, Time: 10:00 AM RNVISIT, Provider: [facility] [address],[id number], Status: Pen, Time: 10:00 AM [facility] Work Phone: Start: 08-10-2023 End: 08-10-2023 ambulatory 08/10/2023 11:00 AM EDT Infusion [address] [place] [address] [facility] Start: 08-10-2023 End: 08-10-2023 Patient encounter procedure [facility] Start: 08-03-2023 FUV, Provider: Elke Martin, Status: Pen, Time: 10:15 AM FUV, Provider: Elke Martin, Status: Dawit, Time: 10:15 AM [facility] [address] [address] Work Phone: Start: 08-03-2023 End: 08-03-2023 Patient encounter procedure 08/03/2023 10:15 AM EDT Office Visit [facility] [address] [place] [address] Elke Martin, BUSINESS ANALYTICS ANALYST-PRECISION THREAD GRINDER OPERATOR, DNP [address] [place], [place] [phone] [facility] Start: 08-01-2023 Hemoglobin A1c measurement A1C [facility] Start: 07-28-2023 End: 07-28-2023 Patient encounter procedure 07/28/2023 1:20 PM EDT Office Visit [facility] [address] [place] [address] Palmira العراقي MD [address] [place] [address] [facility] Start: 07-26-2023 End: 05-25-2024 CBC W Auto Differential panel - Blood CBC and Auto Differential Lab Routine 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, unspecified vessel or lesion type, unspecified whether angina present Type 2 diabetes mellitus with stage 3 chronic kidney disease, with long-term current use of insulin, unspecified whether stage 3a or 3b CKD ([facility]/HCC) Primary hypertension Mixed hyperlipidemia Expected: 07/26/2023 (Approximate), Expires: 05/25/2024 [facility] Service Area Work Phone: Comment on above: Expected: 07/26/2023 (Approximate), Expires: 05/25/2024 Start: 07-26-2023 End: 05-25-2024 Cobalamin (Vitamin B12) [Mass/volume] in Serum or Plasma Vitamin B12 Lab Routine 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, unspecified vessel or lesion type, unspecified whether angina present Type 2 diabetes mellitus with stage 3 chronic kidney disease, with long-term current use of insulin, unspecified whether stage 3a or 3b CKD (CMS/HCC) Primary hypertension Mixed hyperlipidemia Expected: 07/26/2023 (Approximate), Expires: 05/25/2024 [facility] Work Phone: Comment on above: Expected: 07/26/2023 (Approximate), Expires: 05/25/2024 Start: 07-26-2023 End: 05-25-2024 Comprehensive metabolic 2000 panel - Serum or Plasma Comprehensive Metabolic Panel Lab Routine 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, unspecified vessel or lesion type, unspecified whether angina present Type 2 diabetes mellitus with stage 3 chronic kidney disease, with long-term current use of insulin, unspecified whether stage 3a or 3b CKD (CMS/HCC) Primary hypertension Mixed hyperlipidemia Expected: 07/26/2023 (Approximate), Expires: 05/25/2024 [facility] Work Phone: Comment on above: Expected: 07/26/2023 (Approximate), Expires: 05/25/2024 Start: 07-26-2023 End: 05-25-2024 Hemoglobin A1c/Hemoglobin.total in Blood Hemoglobin A1C Lab Routine 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, unspecified vessel or lesion type, unspecified whether angina present Type 2 diabetes mellitus with stage 3 chronic kidney disease, with long-term current use of insulin, unspecified whether stage 3a or 3b CKD (CMS/HCC) Primary hypertension Mixed hyperlipidemia Expected: 07/26/2023 (Approximate), Expires: 05/25/2024 [facility] Work Phone: Comment on above: Expected: 07/26/2023 (Approximate), Expires: 05/25/2024 Start: 07-26-2023 End: 05-25-2024 Lipid 1996 panel - Serum or Plasma Lipid Panel Lab Routine 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, unspecified vessel or lesion type, unspecified whether angina present Type 2 diabetes mellitus with stage 3 chronic kidney disease, with long-term current use of insulin, unspecified whether stage 3a or 3b CKD (CMS/HCC) Primary hypertension Mixed hyperlipidemia Expected: 07/26/2023 (Approximate), Expires: 05/25/2024 [facility] Work Phone: Comment on above: Expected: 07/26/2023 (Approximate), Expires: 05/25/2024 Start: 07-26-2023 End: 05-25-2024 TSH with reflex to Free T4 if abnormal TSH with reflex to Free T4 if abnormal Lab Routine 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, unspecified vessel or lesion type, unspecified whether angina present Type 2 diabetes mellitus with stage 3 chronic kidney disease, with long-term current use of insulin, unspecified whether stage 3a or 3b CKD ([facility]) Primary hypertension Mixed hyperlipidemia Expected: 07/26/2023 (Approximate), Expires: 05/25/2024 [facility] Work Phone: Comment on above: Expected: 07/26/2023 (Approximate), Expires: 05/25/2024 Start: 07-20-2023 RNVISIT, Provider: [facility] [place],[id number], Status: Pen, Time: 9:00 AM RNVISIT, Provider: [facility] [place],[id number], Status: Pen, Time: 9:00 AM [facility] Work Phone: Start: 07-15-2023 FUV, Provider: Martin Rick II, Status: Pen, Time: 2:15 PM FUV, Provider: Martin Rick II, Status: Pen, Time: 2:15 PM [facility] Work Phone: Start: 07-03-2023 COVID-19 Vaccine ( season) COVID-19 Vaccine ( season) [facility] Start: 07-03-2023 Influenza vaccination [facility] Start: 06-12-2023 End: 06-12-2023 Patient encounter procedure 06/12/2023 11:15 AM EDT Office Visit [facility] [address] [place] [address] Robert Mortensen Jr., DPM [address] [place] [address] [facility] Start: 05-01-2023 Hemoglobin A1c measurement [facility] Start: 04-29-2023 End: 04-29-2023 Patient encounter procedure [facility] Start: 04-09-2023 Patient discharge [facility] Start: 04-07-2023 Administration of bl ood product [facility] Start: 04-07-2023 Inhalation therapy procedure [facility] Start: 04-06-2023 End: 04-06-2023 Catheterization of vein [facility] Start: 04-06-2023 Application of inter mittent pneumatic compression device [facility] Start: 04-06-2023 Following clinical p athway protocol [facility] Start: 04-06-2023 Administration of bl ood product [facility] Start: 04-06-2023 Assessment of risk o f venous thromboembolism [facility] Start: 04-06-2023 Care regimes management [facility] Start: 04-06-2023 Insertion of cathete r into peripheral vein [facility] Start: 04-06-2023 Measuring intake and output [facility] Start: 04-06-2023 Providing care accor ding to standard [facility] Start: 04-06-2023 Referral to gastroenterology service [facility] Start: 04-06-2023 Referral to service [facility] Start: 04-06-2023 [facility] Start: 04-06-2023 Leukocyte reduced re d blood cells [facility] Start: 04-06-2023 Verification routine [facility] Start: 04-06-2023 Admission procedure [facility] Start: 04-06-2023 End: 04-07-2023 [facility] Start: 04-06-2023 Patient referral to dietitian [facility] Start: 04-06-2023 [facility] Start: 03-26-2023 Glaucoma screening Ophthalmology Exa m [facility] Start: 03-26-2023 Ophthalmic examinati on and evaluation Ophthalmology Exam [facility] Start: 03-13-2023 End: 03-13-2023 Patient encounter procedure [facility] Start: 02-11-2023 Hemoglobin A1c measurement A1C [facility] Start: 02-11-2023 EPV, Provider: Palmira العراقي, Status: Pen, Time: 10:40 AM EPV, Provider: Palmira العراقي, Status: Pen, Time: 10:40 AM [facility] Work Phone: Start: 02-02-2023 FUV, Provider: Jose J Martin, Status: Pen, Time: 11:00 AM FUV, Provider: Jose J Martin, Status: Pen, Time: 11:00 AM [facility] 3 DO Work Phone: Start: 11-02-2022 ADVANCE DIRECTIVE DISCUSSION ADVANCE DIRECTIVE DISCUSSION [facility] Start: 11-02-2022 DEPRESSION ASSESSMENT DEPRESSION ASS ESSMENT [facility] Start: 10-08-2022 FUV, Provider: Jose J Martin, Status: Pen, Time: 10:30 AM FUV, Provider: Jose J Martin, Status: Pen, Time: 10:30 AM [facility] 3 DO Work Phone: Start: 10-04-2022 History and physical examination, annual for health maintenance Wellness Visit [facility] Start: 09-19-2022 End: 09-19-2022 Patient encounter procedure 09/19/2022 Office Visit Podiatry Robert Mortensen Jr., DPM [address] [place] [address] [facility] Start: 08-14-2022 Hemoglobin A1c measurement A1C [facility] Start: 2022 EPV, Provider: Jae Gannon, Status: Pen, Time: 11:20 AM EPV, Provider: Jae Gannon, Status: Pen, Time: 11:20 AM [facility] Work Phone: Start: 2022 EPV, Provider: Emma Hawkins, Status: Pen, Time: 11:20 AM EPV, Provider: Emma Hawkins, Status: Pen, Time: 11:20 AM [facility] 205 DO Work Phone: Start: 2022 EPV, Provider: Palmira العراقي, Status: Pen, Time: 10:40 AM EPV, Provider: Palmira العراقي, Status: Pen, Time: 10:40 AM [facility] 3 DO Work Phone: Start: 07-04-2022 Hemoglobin A1c measurement A1C [facility] Start: 07-03-2022 Influenza vaccination Sequenti al Influenza Vaccine (#1) [facility] Start: 07-03-2022 FUV, Provider: Jose J Martin, Status: Pen, Time: 10:00 AM FUV, Provider: Jose J Martin, Status: Pen, Time: 10:00 AM [facility] 205 DO Work Phone: Start: 06-27-2022 End: 06-27-2022 Patient encounter procedure 06/27/2022 Office Visit Podiatry Robert Mortensen Jr., DPM [address] [place] [address] [facility] Start: 06-13-2022 End: 06-13-2022 Patient encounter procedure 06/13/2022 Office Visit Podiatry Robert Mortensen Jr., DPM [address] [place] [address] [facility] Start: 05-01-2022 COVID-19 Vaccine (4 - Booster for Teddy series) COVID-19 Vaccine (4 - Booster for Teddy series) [facility] Start: 05-01-2022 COVID-19 Vaccine (4 - Teddy risk series) COVID-19 Vaccine (4 - Teddy risk series) [facility] Start: 04-16-2022 FUV, Provider: Martin Rick II, Status: Pen, Time: 2:00 PM FUV, Provider: Martin Rick II, Status: Pen, Time: 2:00 PM [facility] Work Phone: Start: 04-03-2022 FUV, Provider: Jose J Martin, Status: Pen, Time: 10:30 AM FUV, Provider: Jose J Martin, Status: Pen, Time: 10:30 AM [facility] 3 DO Work Phone: Start: 03-14-2022 End: 03-14-2022 Patient encounter procedure 03/14/2022 Office Visit Podiatry Robert Mortensen Jr., DPM [address] [place] [address] [facility] Start: 02-19-2022 FUV, Provider: Martin Rick II, Status: Pen, Time: 1:15 PM FUV, Provider: Martin Rick II, Status: Pen, Time: 1:15 PM [facility] Work Phone: Start: 02-12-2022 EPV, Provider: Emma Hawkins, Status: Pen, Time: 11:00 AM EPV, Provider: Emma Hawkins, Status: Pen, Time: 11:00 AM [facility] 3 DO Work Phone: Start: 01-15-2022 Hemoglobin A1c measurement A1C [facility] Start: 01-15-2022 EPV, Provider: Jae Gannon, Status: Pen, Time: 9:00 AM EPV, Provider: Jae Gannon, Status: Pen, Time: 9:00 AM [facility] Work Phone: Start: 01-01-2022 FUV, Provider: Jose J Martin, Status: Pen, Time: 10:30 AM FUV, Provider: Jose J Martin, Status: Pen, Time: 10:30 AM [facility] 3 DO Work Phone: Start: 12-13-2021 End: 12-13-2021 Patient encounter procedure 12/13/2021 Office Visit Podiatry Robert Mortensen Jr., DPM [address] [place] [address] [facility] Start: 11-26-2021 FUV, Provider: Jose J Martin, Status: Pen, Time: 11:00 AM FUV, Provider: Jose J Martin, Status: Pen, Time: 11:00 AM [facility] 3 DO Work Phone: Start: 11-25-2021 FUV, Provider: Jose J Martin, Status: Pen, Time: 10:00 AM FUV, Provider: Jose J Martin, Status: Pen, Time: 10:00 AM [facility] Vishal 3 DO Work Phone: Start: 11-02-2021 ADVANCE DIRECTIVE DISCUSSION ADVANCE DIRECTIVE DISCUSSION [facility] Start: 10-31-2021 Glaucoma screening Diabetes: R etinopathy Screening [facility] Start: 10-31-2021 Hepatitis C antibody , confirmatory test DILATED RETINAL EXAM [facility] Start: 10-31-2021 Ophthalmic examinati on and evaluation Ophthalmology Exam [facility] Start: 10-04-2021 Patient encounter procedure NOLA AKINS, Provider: Jae Gannon, Status: Pen, Time: 10:00 AM [facility] Work Phone: Start: 09-13-2021 History and physical examination, annual for health maintenance Wellness Visit [facility] Start: 09-11-2021 Patient encounter procedure NOLA AKINS, Provider: Jae Gannon, Status: Pen, Time: 10:00 AM [facility] Work Phone: Start: 08-07-2021 FUV, Provider: Martin Rick II, Status: Pen, Time: 1:15 PM FUV, Provider: Martin Rick II, Status: Pen, Time: 1:15 PM [facility] Work Phone: Start: 08-05-2021 NPV, Provider: Kevin Guzman, Status: Pen, Time: 11:15 AM NPV, Provider: Kevin Guzman, Status: Pen, Time: 11:15 AM [facility] Phone: Start: 08-01-2021 Assay of prostate sp ecific antigen total Prostate Specific Antigen [facility] Phone: Start: 07-31-2021 FUV, Provider: Martin Rick II, Status: Pen, Time: 1:15 PM FUV, Provider: Martin Rick II, Status: Pen, Time: 1:15 PM [facility] Phone: Start: 07-18-2021 EPV, Provider: Jae Gannon, Status: Pen, Time: 10:00 AM EPV, Provider: Jae Gannon, Status: Pen, Time: 10:00 AM [facility] Phone: Start: 07-03-2021 Influenza vaccination Sequenti al Influenza Vaccine (#1) [facility] Start: 06-14-2021 End: 06-14-2021 Patient encounter procedure 06/14/2021 Office Visit Podiatry Robert Mortensen Jr., DPM [address] [place] [address] [phone] [facility] Start: 06-06-2021 End: 06-06-2021 Patient encounter procedure 06/06/2021 Office Visit Cardiology Aris Meredith MD [address] [facility] [address] [place] [address] [phone] [facility] Office Start: 05-24-2021 FUV, Provider: Elke Martin, Status: Pen, Time: 10:00 AM FUV, Provider: Elke Martin, Status: Pen, Time: 10:00 AM [facility] Work Phone: Start: 05-23-2021 COVID-19 Vaccine (2 - Booster for Teddy series) COVID-19 Vaccine (2 - Booster for Teddy series) [facility] Start: 04-18-2021 FUV, Provider: Jae Gannon, Status: Pen, Time: 10:00 AM FUV, Provider: Jae Gannon, Status: Pen, Time: 10:00 AM [facility] Work Phone: Start: 11-08-2020 Pneumococcal Vaccine : Age 65+ (1 of 2 - PPSV23) Pneumococcal Vaccine: Age 65+ (1 of 2 - PPSV23) [facility] Start: 09-14-2020 Hemoglobin A1c measurement A1C [facility] Start: 09-14-2020 Hemoglobin A1c/Hemoglobin.total in Blood HBA1C [facility] Start: 07-03-2020 Influenza vaccination given Se quential Influenza Vaccine (#1) [facility] Start: 06-12-2020 End: 06-12-2020 Appointment 06/12/2020 Appointment Cardiology Aris Meredith MD [address] [facility] [address] [place] [address] [phone] [facility] Start: 03-09-2020 Basic metabolic 1998 panel - Serum or Plasma Basic Metabolic Panel [facility] Work Phone: Start: 03-09-2020 CBC W Auto Different ial panel - Blood Complete Blood Count [facility] Work Phone: Start: 03-09-2020 HbA1c (Bld) [Mass fraction] Hemoglob in A1C [facility] Work Phone: Start: 09-03-2019 Pneumococcal vaccination Pneum ococcal Vaccine Age 65+ (2 of 2 - PPSV23) [facility] Start: 07-03-2019 Influenza vaccination given SE QUENTIAL INFLUENZA VACCINE (#1) [facility] Start: 05-12-2019 End: 05-12-2019 Ambulatory 05/12/2019 Office Visit Cardiology Aris Meredith MD [address] [facility] [address] [place] [address] [phone] [facility] Office Start: 02-10-2019 End: 02-10-2019 Office Visit 02/10/2019 Office Visit Cardiology Rosalina Woodward, LIZZ [address] [place] [address] [phone] [facility] Office Start: 11-16-2018 End: 11-16-2018 Ambulatory 11/16/2018 Appointment Cardiology rAis Meredith MD [address] [place] [address] [phone] [facility] Start: 07-03-2018 Influenza vaccination given SE QUENTIAL INFLUENZA VACCINE (#1) [facility] Start: 09-23-2017 Microalbumin measure ment, urine, quantitative Urine Microalbumin [facility] Start: 09-23-2017 Urine screening for protein Urine Mi croalbumin [facility] Start: 07-03-2017 Influenza vaccination SEQUENTI AL INFLUENZA VACCINE (#1) [facility] Work Phone: Start: 07-26-2014 HbA1c (Bld) [Mass fraction] A1C [facility] Start: 07-26-2014 Hemoglobin A1c measurement A1C [facility] Start: 2010 Respiratory Syncytia l Virus Immunization: Risk, 60-74 Risk, or 75+ (1 - 1-dose 75+ series) Respiratory Syncytial Virus Immunization: Risk, 60-74 Risk, or 75+ (1 - 1-dose 75+ series) [facility] Start: 2010 RSV High Risk: (Elde rly (60+) or Population) (1 - 1-dose 75+ series) RSV High Risk: (Elderly (60+) or Population) (1 - 1-dose 75+ series) [facility] Start: 2000 Fall risk assessment [facility] Start: 2000 Pneumococcal vaccination PNEUM OCOCCAL VACCINE AGE 65+ (1 of 2 - PCV13) [facility] Work Phone: Start: 1995 Hepatitis B Vaccines (1 of 3 - Risk 3-dose series) Hepatitis B Vaccines (1 of 3 - Risk 3-dose series) [facility] Start: 1995 RSV patient s and/or patients aged 60+ years (1 - 1-dose 60+ series) RSV patients and/or patients aged 60+ years (1 - 1-dose 60+ series) [facility] Start: 1995 RSV Vaccine (1 - 1-d ose 60+ series) RSV Vaccine (1 - 1-dose 60+ series) [facility] Start: 1995 Zoster vacc, sc ZOSTER VACCINE [facility] Work Phone: Start: 1985 Administration of he rpes zoster vaccine ZOSTER VACCINES (1 of 2) [facility] Start: 1985 SHINGRIX VACCINE (1 of 2) WHITTEN GRIX VACCINE (1 of 2) [facility] Start: 1954 Hepatitis A Vaccines (1 of 2 - Risk 2-dose series) Hepatitis A Vaccines (1 of 2 - Risk 2-dose series) [facility] Start: 1954 Urine microalbumin profile DTA P,TDAP,TD (1 - Tdap) [facility] Start: 1953 Hepatitis B surface antibody level LDL CHOLESTEROL [facility] Start: 1947 Adolescent depressio n screening assessment Depression Screening (PHQ9) [facility] Start: 1947 COVID-19 Vaccine (1) COVID-19 Vaccin e (1) [facility] Start: 1947 Depression screening using PHQ-9 (Patient Health Questionnaire 9) score [facility] Start: 1945 3 comp foot exam completed DIABETIC FOOT EXAM [facility] Start: 1945 Albumin DL <= 20 mg/ L (U) [Mass/Vol] URINE MICROALBUMIN [facility] Start: 1945 Diabetic foot examination [facility] Start: 1945 Hepatitis B screening URINE ALBUMIN:CREATININE RATIO [facility] Start: 1945 Microalbumin measure ment, urine, quantitative Urine Microalbumin [facility] Start: 1945 Ophthalmic examinati on and evaluation Ophthalmology Exam [facility] Start: 1945 Urine screening for protein Ur ine (micro)albumin/creati nine ratio - Diabetes [facility] Start: 1941 PNEUMOCOCCAL: 65+ (1 - PCV) PN EUMOCOCCAL: 65+ (1 - PCV) [facility] Start: 1938 History and physical examination, annual for health maintenance Wellness Visit [facility] Start: 1935 Fall risk assessment Falls Risk Asse ssment [facility] Start: 1935 Medicare Annual Well ness Visit Medicare Annual Wellness Visit (AWV) [facility] Start: 1935 End: 1935 Tetanus vaccination [facility] Work Phone: Acute hepatitis 2000 panel - Serum [facility] [id number]. tumor marker [Units/volume] in Serum or Plasma [facility] Zbbri-9-[id number]. tumor marker [Units/volume] in Serum or Plasma [facility] Wlmjk-7-[id number]. tumor marker [Units/volume] in Serum or Plasma [facility] Angiotensin converti ng enzyme [Enzymatic activity/volume] in Serum or Plasma [facility] End: 02-06-2025 Basic metabolic 2000 panel - Serum or Plasma Basic Metabolic Panel Lab Routine Daily (Lab) for 4 Occurrences starting 02/03/2025 until 02/06/2025, 1 completed [facility] Work Phone: Comment on above: Daily (Lab) for 4 Oc currences starting 02/03/2025 until 02/06/2025, 1 completed Bilirubin.direct [Mass/volume] in Serum or Plasma [facility] Blood ammonia measurement [facility] Blood ammonia measurement [facility] Bone marrow cell differential Bone marrow cell differential Pathology and Cytology Routine 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) Leukopenia, unspecified type Ordered: 01/12/2024 [facility] Work Phone: Comment on above: Ordered: 01/12/2024 Bone Marrow Evaluation Bone Violet ow Evaluation Pathology and Cytology Routine 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) Leukopenia, unspecified type Ordered: 01/12/2024 [facility] Service Area Work Phone: Comment on above: Ordered: 01/12/2024 C reactive protein [Mass/volume] in Serum or Plasma [facility] C reactive protein [Mass/volume] in Serum or Plasma [facility] End: 02-06-2025 CBC panel - Blood by Automated count CBC Lab Routine Daily (Lab) for 4 Occurrences starting 02/03/2025 until 02/06/2025, 1 completed [facility] Work Phone: Comment on above: Daily (Lab) for 4 Oc currences starting 02/03/2025 until 02/06/2025, 1 completed CBC W Auto Different ial panel - Blood [facility] CBC W Auto Different ial panel - Blood CBC and Auto Differential Lab Routine 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) Leukopenia, unspecified type Ordered: 01/12/2024 [facility] Work Phone: Comment on above: Ordered: 01/12/2024 CBC W Auto Different ial panel - Blood [facility] CBC W Auto Different ial panel - Blood [facility] Ceruloplasmin [Mass/ volume] in Serum or Plasma [facility] Complete blood count [facility] End: 02-05-2024 Complete Pulmonary Function Test Pre/Post Bronchodialator (Spirometry Pre/Post/DLCO/Lung Volumes) [facility] Service Area Work Phone: Comment on above: Once for 1 Occurrenc es starting 02/05/2024 until 02/05/2024 Comprehensive metabo lic 2000 panel - Serum or Plasma Comprehensive metabolic panel Lab Routine Stage 4 chronic kidney disease (Multi) 02/27/2025 11:23 AM EDT [facility] Work Phone: Comprehensive metabo lic 2000 panel - Serum or Plasma [facility] Copper [Moles/volume ] in Serum or Plasma [facility] End: 01-22-2024 CT Chest and Abdomen and Pelvis WO contrast [facility] Service Area Work Phone: Comment on above: Once for 1 Occurrenc es starting 01/22/2024 until 01/22/2024 End: 07-06-2024 CT Chest WO contrast [facility] Service Area Work Phone: Comment on above: Once for 1 Occurrenc es starting 07/06/2024 until 07/06/2024 CYTOGENETICS HOLD CYTOGENETICS H OLD Lab Only Routine 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 End: 11-12-2019 Echocardiography Echocardiogram complete Routine Essential hypertension 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 Mixed hyperlipidemia 1 Occurrences starting 11/11/2018 until 11/12/2019 [facility] Comment on above: 1 Occurrences starti ng 11/11/2018 until 11/12/2019 Electrocardiogram, 1 2-lead PRN ACS symptoms Electrocardiogram, 12-lead PRN ACS symptoms ECG Routine As needed until discontinued starting 01/30/2025 [facility] Service Area Work Phone: Comment on above: As needed until disc ontinued starting 01/30/2025 Electroencephalogram EEG Neurolo gy Routine 01/31/2025 2:46 PM EDT [facility] Work Phone: Erythrocyte sediment ation rate [facility] End: 01-30-2025 Extra Urine Bustos Tube Extra Urine Bustos Tube Lab Timed Once for 1 Occurrences starting 01/30/2025 until 01/30/2025 [facility] Work Phone: Comment on above: Once for 1 Occurrenc es starting 01/30/2025 until 01/30/2025 Ferritin [Mass/volum e] in Serum or Plasma [facility] Flow Cytometry Test Flow Cytomet ry Test Lab Only Routine 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) Leukopenia, unspecified type 12/15/2023 1:11 PM EST [facility] Work Phone: Flow Cytometry Test Flow Cytomet ry Test Lab Only Routine 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) Leukopenia, unspecified type Ordered: 01/12/2024 [facility] Work Phone: Comment on above: Ordered: 01/12/2024 Glucose [Mass/volume ] in Serum or Plasma POCT Glucose Point of Care Testing - Docked Device Routine As needed (Lab) until discontinued starting 01/30/2025 [facility] Work Phone: Comment on above: As needed (Lab) unti l discontinued starting 01/30/2025 End: 02-04-2025 Glucose [Mass/volume] in Serum or Plasma POCT Glucose Point of Care Testing - Docked Device Routine 4 times daily before meals and at bedtime for 3 Days starting 02/01/2025 until 02/04/2025, 9 completed [facility] Work Phone: Comment on above: 4 times daily before meals and at bedtime for 3 Days starting 02/01/2025 until 02/04/2025, 9 completed End: 02-16-2024 Guidance for biopsy of Bone marrow [facility] Work Phone: Comment on above: Once for 1 Occurrenc es starting 02/16/2024 until 02/16/2024 Haptoglobin [Mass/vo lume] in Serum or Plasma [facility] Hemoglobin A1c/Hemoglobin.total in Blood [facility] Hemoglobin A1c/Hemoglobin.total in Blood [facility] Hepatitis A virus Ig M Ab [Presence] in Serum [facility] Hepatitis B core ant ibody measurement, IgM type [facility] Hepatitis B surface antigen measurement [facility] Hepatitis C antibody measurement [facility] [facility] HIV 1+2 Ab+HIV1 p24 Ag [Presence] in Serum or Plasma by Immunoassay [facility] Iron and Iron bindin g capacity panel - Serum or Plasma [facility] Lactate dehydrogenas e measurement [facility] Lipid 1995 panel - S yeimy or Plasma [facility] Lipid 1995 panel - S yeimy or Plasma [facility] Liver stiffness by US.transient elastography [facility] Magnesium [Mass/volu me] in Serum or Plasma [facility] Mitochondria Ab [Pre sence] in Serum [facility] Neutrophil cytoplasm ic Ab.classic [Units/volume] in Serum [facility] End: 02-03-2025 Noninvasive Ventilation Patient to use: At night; Mode: CPAP; Ventilation type: Auto Titrating (home unit); Auto-titrating range: per home settings Noninvasive Ventilation Patient to use: At night; Mode: CPAP; Ventilation type: Auto Titrating (home unit); Auto-titrating range: per home settings Respiratory Care Routine Continuous until discontinued starting 02/03/2025 [facility] Work Phone: Comment on above: Continuous until dis continued starting 02/03/2025 P-ANCA measurement [facility] Patient Education [facility] Work Phone: Patient referral [facility] Work Phone: Prothrombin time [facility] Prothrombin time [facility] Prothrombin time [facility] End: 02-05-2024 Pulmonary Stress Test (6 Min. 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 Essential hypertension Mixed hyperlipidemia 1 Occurrences starting 05/31/2020 until 05/31/2021 [facility] Comment on above: 1 Occurrences starti ng 05/31/2020 until 05/31/2021 Radionuclide myocard ial perfusion study NM Myocardial Perfusion Multiple SPECT Imaging Routine 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 Essential hypertension Mixed hyperlipidemia 06/12/2020 12:34 PM EDT [facility] End: 06-12-2020 Radionuclide myocardial perfusion study NM Myocardial Perfusion Multiple SPECT Imaging Routine 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 Essential hypertension Mixed hyperlipidemia Once for 1 Occurrences starting 06/12/2020 until 06/12/2020 [facility] Comment on above: Once for 1 Occurrenc es starting 06/12/2020 until 06/12/2020 Slide Request Slide Request La b Routine 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) Leukopenia, unspecified type Ordered: 01/12/2024 [facility] Work Phone: Comment on above: Ordered: 01/12/2024 Smooth muscle Ab [Pr esence] in Serum [facility] Surgical pathology study Bone ma rrow aspiration and exam Pathology and Cytology Routine 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) Leukopenia, unspecified type Ordered: 01/12/2024 [facility] Work Phone: Comment on above: Ordered: 01/12/2024 Transferrin [Mass/vo lume] in Serum or Plasma [facility] Transfuse RBC :1 Hour Transfuse RBC :1 Hour Transfusion Administration Routine 01/30/2025 8:01 PM [facility] Work Phone: Transfuse RBC :1 Hour Transfuse RBC :1 Hour Transfusion Administration Routine 01/31/2025 12:47 AM [facility] Work Phone: Transfuse RBC: 2 Uni ts :1 Hour Transfuse RBC: 2 Units :1 Hour Transfusion Administration Routine 01/30/2025 8:03 PM [facility] Work Phone: Triglycerides measurement [facility] UHTL HOLD UHTL HOLD Lab On ly Routine 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) Leukopenia, unspecified type Ordered: 01/12/2024 [facility] Work Phone: Comment on above: Ordered: 01/12/2024 End: 01-30-2025 Urinalysis complete panel - Urine Urinalysis with Reflex Microscopic Lab Routine Once (Lab) for 1 Occurrences starting 01/30/2025 until 01/30/2025 [facility] Work Phone: Comment on above: Once (Lab) for 1 Occ urrences starting 01/30/2025 until 01/30/2025 End: 01-30-2025 Urinalysis complete W Reflex Culture panel - Urine [facility] Service Area Work Phone: Comment on above: Once (Lab) for 1 Occ urrences starting 01/30/2025 until 01/30/2025 Vitamin D, 25-hydrox y measurement [facility] NEGATED: Highlighted row has been ruled out! Planned Goals not documented -[facility] Work Phone: Immunizations Immunization Date Immunization Notes Care Provider Albert johns 08-06-2024 influenza, high dose seasonal, preservative-free Palmira العراقي MD Work Phone: [facility] Work Phone: 08-12-2023 Flu vaccine, quadrivalent, high-dose, preservative free, age 65y+ (FLUZONE) Elaine Betts BUSINESS ANALYTICS ANALYST-PRECISION THREAD GRINDER OPERATOR Work Phone: [facility] Work Phone: 08-12-2023 Pneumococcal conjuga te vaccine, 20-valent (PREVNAR 20) Elaine Betts BUSINESS ANALYTICS ANALYST-PRECISION THREAD GRINDER OPERATOR Work Phone: [facility] Work Phone: 08-12-2023 influenza virus vacc ine, unspecified formulation Palmira العراقي MD Work Phone: [facility] Work Phone: 08-23-2022 influenza, injectabl e, quadrivalent, preservative free Dr. Palmira العراقي Work Phone: [facility] 08-23-2022 influenza, seasonal, injectable Dr. Palmira العراقي Work Phone: [facility] 08-20-2022 Fluzone High-Dose Quadrivalent 0.7 ML Intramuscular Suspension Prefilled Syringe Palmira العراقي Work Phone: [facility] Work Phone: 08-20-2022 influenza, high dose seasonal, preservative-free Palmira العراقي MD Work Phone: [facility] Work Phone: 08-20-2022 influenza virus vacc ine, unspecified formulation Palmira العراقي MD Work Phone: [facility] Work Phone: 03-06-2022 Covid Moderna Bivale nt Booster; Translations: [Covid Moderna Bivalent Booster] Dr. Palmira العراقي Work Phone: [facility] 03-06-2022 Moderna COVID-19 Vac cine 100 MCG/0.5ML Intramuscular Suspension Palmira العراقي Work Phone: [facility] Work Phone: 10-29-2021 Teddy COVID-19 Vac cine 0.5 ML Intramuscular Suspension Jae Recio Jagdeep Work Phone: [facility] 08-19-2021 Fluzone High-Dose Quadrivalent 0.7 ML Intramuscular Suspension Prefilled Syringe Jae Almita Gannon Work Phone: [facility] Work Phone: 08-19-2021 influenza, high dose seasonal, preservative-free Palmira العراقي MD Work Phone: [facility] Work Phone: 08-09-2021 influenza virus vacc ine, unspecified formulation Jaerenetta Gannon Work Phone: [facility] Work Phone: Comment on above: Series: 03-28-2021 Teddy COVID-19 Vac cine 0.5 ML Intramuscular Suspension Jaerenetta Gannon Work Phone: [facility] 01-01-2021 zoster vaccine recombinant [facility] Comment on above: Series: 09-18-2020 zoster vaccine recombinant [facility] Comment on above: Series: 09-13-2020 pneumococcal conjuga te vaccine, 13 valent Robert Mortensen Jr., DPM Work Phone: [facility] 09-13-2020 pneumococcal polysaccharide vaccine, 23 valent [facility] Comment on above: Series: 08-09-2020 influenza, seasonal, injectable Jaerenetta Gannon Work Phone: [facility] Work Phone: Comment on above: Series: 08-09-2020 influenza, seasonal, injectable Nancy [facility] Work Phone: 08-07-2020 influenza, high dose seasonal, preservative-free Robert Mortensen Jr., DPM Work Phone: [facility] 08-06-2020 influenza, high dose seasonal, preservative-free Nancy [facility] Work Phone: Comment on above: Series: 09-03-2018 pneumococcal conjuga te vaccine, 13 valanisha العراقي MD Work Phone: [facility] Work Phone: 09-03-2018 pneumococcal conjuga te vaccine, 7 valent Jae Gannon [facility] Work Phone: Comment on above: Series: 2017 influenza virus vacc ine, unspecified formulation Jae J [place] Work Phone: [facility] Work Phone: Comment on above: Series: 2017 influenza, seasonal, injectable Jaerenetta Gannon [facility] Work Phone: 11-28-2014 tetanus toxoid, redu jasper diphtheria toxoid, and acellular pertussis vaccine, adsorbed Jae [place] [facility] Work Phone: Comment on above: Series: 07-16-2011 pneumococcal polysaccharide vaccine, 23 valent Jae Gannon Work Phone: [facility] Work Phone: Comment on above: Series: 07-16-2011 pneumococcal polysaccharide vaccine, 23 valent Nancy [facility] Work Phone: 10-19-2009 influenza virus vacc ine, unspecified formulation Palmira العراقي MD Work Phone: [facility] Work Phone: 10-19-2009 novel influenza-H1N1 -09, preservative-free, injectable Jae Gannon Work Phone: [facility] Work Phone: 09-10-2007 influenza virus vacc ine, unspecified formulation Palmira العراقي MD Work Phone: [facility] 09-10-2007 influenza virus vacc ine, whole virus Jae Recio [place] Work Phone: [facility] Work Phone: Payers Date Payer Category Payer Self-pay 11-02-2018 Managed Care PPO (unspecified) [employer] OPEN CHOICE PPO [id number] 11-02-2018 Medicare xxxxxxxxxx [id number] 11-02-2018 Private Health Insurance [id number] [id number] 11-02-2007 Managed Care (Private) [employer] [facility] [id number] 11-02-2007 Private Health Insurance [id number] [id number] 11-02-2007 Private Health Insurance [id number] 08-02-2000 Medicare [id number] 2.16.840.1.160937.3.249. 13 08-02-2000 Medicare MEDICARE MEDICAR E PART A & B xxxxxxxxxxx 2000-Present [place] xxxxxxxxxxx [id number] [id number] 08-02-2000 Medicare [id number]. 2.7.3.343787.315 08-02-2000 Medicare [id number]. 1.13.385. 2.7.3.972488.315 08-02-2000 Medicare [id number] 1935 Unknown [id number] 2.16.840.1.414071.3.579. 2.900 1935 Unknown [id number] 2.16.840.1.667660.3.579. 2.903 1935 Unknown [id number] 2.16.840.1.685129.3.579. 2.903 1935 Unknown [id number] 2.16.840.1.140352.3.579. 2.903 1935 Unknown [id number] 2.16.840.1.594476.3.579. 2.903 1935 Unknown [id number] 2.16.840.1.048685.3.579. 2.1046 1935 Unknown [id number] 2.16.840.1.857656.3.579. 2.1069 1935 Unknown [id number] 2.16.840.1.811396.3.579. 2.1069 1935 Unknown [id number] 2.16.840.1.305238.3.579. 2.1069 1935 Unknown [id number] 2.16.840.1.454870.3.579. 2.1069 1935 Unknown [id number] 2.16.840.1.371994.3.579. 2.106808-13-1935 Unknown [id number] 2.16.840.1.399763.3.579. 2.106808-13-1935 Unknown [id number] 2.16.840.1.482074.3.579. 2.106808-13-1935 Unknown [id number] 2.16.840.1.320501.3.579. 2.106808-13-1935 Unknown [id number] 2.16.840.1.075927.3.579. 2.106808-13-1935 Unknown [id number] 2.16.840.1.636279.3.579. 2.7 1935 Unknown [id number] 2.16.840.1.715524.3.579. 2.124408-12-1935 Unknown [id number] 2.16.840.1.510573.3.579. 2.5 1935 Unknown [id number] 2.16.840.1.685475.3.579. 2.124408-12-1935 Unknown [id number] 2.16.840.1.889136.3.579. 2.3 1935 Unknown [id number] 2.16.840.1.740084.3.579. 2.124208-12-1935 Unknown [id number] 2.16.840.1.876347.3.579. 2.1243 1935 Unknown [id number] 2.16.840.1.048637.3.579. 2.1243 1935 Unknown [id number] 2.16.840.1.514585.3.579. 2.1243 1935 Unknown [id number] 2.16.840.1.974304.3.579. 2.1243 1935 Unknown [id number] 2.16.840.1.444842.3.579. 2.3 1935 Unknown [id number] 2.16.840.1.430879.3.579. 2.124208-12-1935 Unknown [id number] 2.16.840.1.119386.3.579. 2.124208-12-1935 Unknown [id number] 2.16.840.1.757676.3.579. 2.124208-12-1935 Unknown [id number] 2.16.840.1.437712.3.579. 2.124208-12-1935 Unknown [id number] 2.16.840.1.486537.3.579. 2.124208-12-1935 Unknown [id number] 2.16.840.1.808890.3.579. 2.124208-12-1935 Unknown [id number] 2.16.840.1.060824.3.579. 2.124208-12-1935 Unknown [id number] 2.16.840.1.261714.3.579. 2.124208-12-1935 Unknown [id number] 2.16.840.1.376894.3.579. 2.124208-12-1935 Unknown [id number] 2.16.840.1.412116.3.579. 2.124208-12-1935 Unknown [id number] 2.16.840.1.251587.3.579. 2.124208-12-1935 Unknown [id number] 2.16.840.1.013113.3.579. 2.124208-12-1935 Unknown [id number] 2.16.840.1.781156.3.579. 2.124208-12-1935 Unknown [id number] 2.16.840.1.627232.3.579. 2.124208-12-1935 Unknown [id number] 2.16.840.1.968335.3.579. 2.1243 1935 Unknown [id number] 2.16.840.1.670685.3.579. 2.3 1935 Unknown [id number] 2.16.840.1.266898.3.579. 2.1243 1935 Unknown [id number] 2.16.840.1.857409.3.579. 2.124208-12-1935 Unknown [id number] 2.16.840.1.646514.3.579. 2.1243 1935 Unknown [id number] 2.16.840.1.190246.3.579. 2.124208-12-1935 Unknown [id number] 2.16.840.1.601694.3.579. 2.124208-12-1935 Unknown [id number] 2.16.840.1.765285.3.579. 2.124208-12-1935 Unknown [id number] 2.16.840.1.959244.3.579. 2.124208-12-1935 Unknown [id number] 2.16.840.1.415421.3.579. 2.124208-12-1935 Unknown [id number] 2.16.840.1.955370.3.579. 2.3 1935 Unknown [id number] 2.16.840.1.642899.3.579. 2.12408-12-1935 Unknown [id number] 2.16.840.1.053140.3.579. 2.12408-12-1935 Unknown [id number] 2.16.840.1.231694.3.579. 2.124208-12-1935 Unknown [id number] 2.16.840.1.374914.3.579. 2.1243 1935 Unknown [id number] 2.16.840.1.261336.3.579. 2.1243 1935 Unknown [id number] 2.16.840.1.817674.3.579. 2.1243 1935 Unknown [id number] 2.16.840.1.092341.3.579. 2.1243 1935 Unknown [id number] 2.16.840.1.534540.3.579. 2.1243 1935 Unknown [id number] 2.16.840.1.004467.3.579. 2.1243 1935 Unknown [id number] 2.16.840.1.259127.3.579. 2.3 1935 Unknown [id number] 2.16.840.1.519233.3.579. 2.1243 1935 Unknown [id number] 2.16.840.1.673779.3.579. 2.1243 1935 Unknown [id number] 2.16.840.1.469368.3.579. 2.903 1935 Unknown [id number] 2.16.840.1.829480.3.579. 2.3 1935 Unknown [id number] 2.16.840.1.074338.3.579. 2.903 1935 Unknown [id number] 2.16.840.1.706495.3.579. 2.9008-12-1935 Unknown [id number] 2.16.840.1.535388.3.579. 2.903 1935 Unknown [id number] 2.16.840.1.935404.3.579. 2.08-12-1935 Unknown [id number] 2.16.840.1.553133.3.579. 2.902 1935 Unknown [id number] 2.16.840.1.253318.3.579. 2.9008-12-1935 Unknown [id number] 2.16.840.1.057318.3.579. 2.902 1935 Unknown [id number] 2.16.840.1.971879.3.579. 2.902 1935 Unknown [id number] 2.16.840.1.145365.3.579. 2.1244 1935 Unknown [id number] 2..840.1.095494.3.579. 2.1244 1935 Unknown [id number] 2..840.1.837181.3.579. 2.1244 1935 Unknown [id number] 2.840.1.371990.3.579. 2.1244 1935 Unknown [id number] 2.840.1.360334.3.579. 2.1244 1935 Unknown [id number] 2.840.1.653773.3.579. 2.1244 1935 Unknown [id number] 2.840.1.462088.3.579. 2.1244 1935 Unknown [id number] 2.840.1.947047.3.579. 2.1244 1935 Unknown [id number] 2.840.1.371687.3.579. 2.1244 1935 Unknown [id number] 2.840.1.563511.3.579. 2.1244 1935 Unknown [id number] 2.840.1.006942.3.579. 2.1244 1935 Unknown [id number] 2.840.1.617301.3.579. 2.1244 Private Health Insurance [id number] 2.16840.1.952149.3.249. 13 Unknown [id number] Unknown Unknown [id number] 2.16.840.1.302147.3.579. 2.462 Unknown [id number] 2.16.840.1.984622.3.579. 2.462 Unknown [id number] 2.16.840.1.540987.3.579. 2.462 Unknown [id number] 2.16.840.1.885406.3.579. 2.462 Unknown [id number] 2.16.840.1.279932.3.579. 2.462 Unknown [id number] 2.16.840.1.750287.3.579. 2.462 Unknown [id number] 2.16.840.1.283774.3.579. 2.462 Unknown [id number] 2.16.840.1.273813.3.579. 2.462 Unknown [id number] 2.16.840.1.639365.3.579. 2.462 Unknown [id number] 2.16.840.1.654608.3.579. 2.462 Unknown [id number] 2.16.840.1.319187.3.579. 2.462 Unknown [id number] 2.16.840.1.126289.3.579. 2.462 Unknown [id number] 2.16.840.1.838199.3.579. 2.462 Social History Date Type Detail Facility Start: 11-05-2017 End: 11-28-2022 Tobacco smoking status [facility] Never smoker [facility] Work Phone: Start: 1935 Sex Assigned At Not on file [facility] Work Phone: Start: 05-31-2020 End: 03-31-2025 Alcohol intake Current non-drinker of alcohol (finding) [facility] Start: 03-04-2022 End: 03-13-2025 Exposure to SARS-CoV-2 (event) Not sure [facility] Start: 06-12-2020 End: 11-28-2022 Tobacco use and exposure Never used [facility] Start: 05-28-2021 End: 11-16-2024 Never a smoker Never a smoker [facility] Start: 03-26-2022 End: 03-15-2024 Alcohol intake Ex-drinker (finding) [facility] Start: 12-19-2022 End: 11-16-2024 Tobacco use panel [facility] Start: 05-12-2019 Gender identity Identifies as male gender (finding) [facility] Start: 05-12-2019 Sexual orientation Heterosexual (fin gladys) [facility] Start: 04-06-2023 End: 01-01-2024 Tobacco smoking status NHIS Unknown if ever smoked [facility] Start: 1935 Sex Assigned At Male [facility] Start: 05-25-2023 End: 02-28-2025 Alcohol intake Lifetime non-drinker (finding) [facility] Work Phone: Adult Depression Screening Assessment 0 [facility] Has the [employer], gas, oil, or water [employer] threatened to shut off services in your home in past 12Mo No [facility] Work Phone: How often to you hav e a drink containing alcohol? Never [facility] Work Phone: (I/We) worried whether (my/our) food would run out before (I/we) got money to buy more. Never true [facility] Work Phone: How often do you nee d to have someone help you when you read instructions, pamphlets, or other written material from your doctor or pharmacy [SILS] Rarely [facility] NEGATED: Highlighted row - - [facility] Work Phone: Medical Equipment Procedure Code Equipment Code Equipment Origin al Text Equipment Identifier Dates Start: 03-08-2019 TrueTrack Test I n Vitro Strip Use as directed to check blood sugar 2 times daily Quantity: 200 Refills: 3 [place] BUSINESS ANALYTICS ANALYST-Elvia ZAMUDIOa Start : 08-Mar-2019 Active Start: 03-08-2019 Drug Troy Unilet Lancets 33G Use as directed to check blood sugar 2 times daily Quantity: 100 Refills: 0 Start : 08-Mar-2019 Active Start: 03-08-2019 TrueTrack Test I n Vitro Strip Use as directed to check blood sugar 2 times daily Quantity: 50 Refills: 0 Start : 08-Mar-2019 Active Start: 03-08-2019 Drug Troy Unilet Lancets 33G Use as directed to check blood sugar 2 times daily Quantity: 100 Refills: 0 Start : 08-Mar-2019 Active Start: 03-08-2019 TrueTrack Test I n Vitro Strip Use as directed to check blood sugar 2 times daily Quantity: 200 Refills: 3 Jae Moore Start : 08-Mar-2019 Active Start: 03-08-2019 Drug Troy Unilet Lancets 33G Use as directed to check blood sugar 2 times daily Quantity: 100 Refills: 0 Start : 08-Mar-2019 Active Start: 03-08-2019 TrueTrack Test I n Vitro Strip Use as directed to check blood sugar 2 times daily Quantity: 200 Refills: 3 Jae Moore Start : 08-Mar-2019 Active Start: 03-08-2019 Drug [place] Unilet Lancets 33G Use as directed to check blood sugar 2 times daily Quantity: 100 Refills: 0 Start : 08-Mar-2019 Active Start: 03-08-2019 TrueTrack Test I n Vitro Strip Use as directed to check blood sugar 2 times daily Quantity: 200 Refills: 3 Jae Moore Start : 08-Mar-2019 Active Start: 03-08-2019 Drug Troy Unilet Lancets 33G Use as directed to check blood sugar 2 times daily Quantity: 100 Refills: 0 DO Start : 08-Mar-2019 Active Start: 03-08-2019 TrueTrack Test I n Vitro Strip Use as directed to check blood sugar 2 times daily Quantity: 200 Refills: 3 Jae Moore Start : 08-Mar-2019 Active Start: 03-08-2019 Drug [place] Unilet Lancets 33G Use as directed to check blood sugar 2 times daily Quantity: 100 Refills: 0 DO Start : 08-Mar-2019 Active Start: 03-08-2019 TrueTrack Test I n Vitro Strip Use as directed to check blood sugar 2 times daily Quantity: 50 Refills: 0 DO Start : 08-Mar-2019 Active Start: 03-08-2019 Drug Troy Unilet Lancets 33G Use as directed to check blood sugar 2 times daily Quantity: 100 Refills: 0 Start : 08-Mar-2019 Active Start: 03-08-2019 TrueTrack Test I n Vitro Strip Use as directed to check blood sugar 2 times daily Quantity: 200 Refills: Jae Strong Start : 08-Mar-2019 Active Start: 03-08-2019 Drug [place] Unilet Lancets 33G Use as directed to check blood sugar 2 times daily Quantity: 100 Refills: 0 DO Start : 08-Mar-2019 Active Start: 03-08-2019 TrueTrack Test I n Vitro Strip Use as directed to check blood sugar 2 times daily Quantity: 200 Refills: 3 Jae Moore Start : 08-Mar-2019 Active Start: 03-08-2019 Drug [place] Unilet Lancets 33G Use as directed to check blood sugar 2 times daily Quantity: 100 Refills: 0 DO Start : 08-Mar-2019 Active Start: 03-08-2019 TrueTrack Test I n Vitro Strip Use as directed to check blood sugar 2 times daily Quantity: 200 Refills: 3 Jae Moore Start : 08-Mar-2019 Active Start: 03-08-2019 Drug Troy Unilet Lancets 33G Use as directed to check blood sugar 2 times daily Quantity: 100 Refills: 0 Start : 08-Mar-2019 Active Start: 03-08-2019 TrueTrack Test I n Vitro Strip Use as directed to check blood sugar 2 times daily Quantity: 200 Refills: Jae Strong Start : 08-Mar-2019 Active Start: 03-08-2019 Drug Troy Unilet Lancets 33G Use as directed to check blood sugar 2 times daily Quantity: 100 Refills: 0 Start : 08-Mar-2019 Active Start: 03-08-2019 TrueTrack Test I n Vitro Strip Use as directed to check blood sugar 2 times daily Quantity: 50 Refills: 0 Start : 08-Mar-2019 Active Start: 03-08-2019 Drug Troy Unilet Lancets 33G Use as directed to check blood sugar 2 times daily Quantity: 100 Refills: 0 Start : 08-Mar-2019 Active Start: 03-08-2019 TrueTrack Test I n Vitro Strip Use as directed to check blood sugar 2 times daily Quantity: 50 Refills: 0 Start : 08-Mar-2019 Active Start: 03-08-2019 Drug Troy Unilet Lancets 33G Use as directed to check blood sugar 2 times daily Quantity: 100 Refills: 0 DO Start : 08-Mar-2019 Active Start: 03-08-2019 TrueTrack Test I n Vitro Strip Use as directed to check blood sugar 2 times daily Quantity: 200 Refills: 3 Jae Moore Start : 08-Mar-2019 Active Start: 03-08-2019 Drug Troy Unilet Lancets 33G Use as directed to check blood sugar 2 times daily Quantity: 100 Refills: 0 DO Start : 08-Mar-2019 Active Start: 03-08-2019 TrueTrack Test I n Vitro Strip Use as directed to check blood sugar 2 times daily Quantity: 200 Refills: 3 Jae Moore Start : 08-Mar-2019 Active Start: 03-08-2019 Drug [place] Unilet Lancets 33G Use as directed to check blood sugar 2 times daily Quantity: 100 Refills: 0 Start : 08-Mar-2019 Active Start: 03-08-2019 TrueTrack Test I n Vitro Strip Use as directed to check blood sugar 2 times daily Quantity: 200 Refills: 3 Jae Moore Start : 08-Mar-2019 Active Start: 03-08-2019 Drug [place] Unilet Lancets 33G Use as directed to check blood sugar 2 times daily Quantity: 100 Refills: 0 Start : 08-Mar-2019 Active Start: 03-08-2019 TrueTrack Test I n Vitro Strip Use as directed to check blood sugar 2 times daily Quantity: 200 Refills: 3 Jae Moore Start : 08-Mar-2019 Active Start: 03-08-2019 Drug [place] Unilet Lancets 33G Use as directed to check blood sugar 2 times daily Quantity: 100 Refills: 0 DO Start : 08-Mar-2019 Active Start: 03-08-2019 TrueTrack Test I n Vitro Strip Use as directed to check blood sugar 2 times daily Quantity: 200 Refills: 3 Jae Moore Start : 08-Mar-2019 Active Start: 03-08-2019 Drug Troy Unilet Lancets 33G Use as directed to check blood sugar 2 times daily Quantity: 100 Refills: 0 DO Start : 08-Mar-2019 Active Start: 03-08-2019 TrueTrack Test I n Vitro Strip Use as directed to check blood sugar 2 times daily Quantity: 200 Refills: 3 Jae Moore Start : 08-Mar-2019 Active Start: 03-08-2019 Drug [place] Unilet Lancets 33G Use as directed to check blood sugar 2 times daily Quantity: 100 Refills: 0 Start : 08-Mar-2019 Active Start: 03-08-2019 TrueTrack Test I n Vitro Strip Use as directed to check blood sugar 2 times daily Quantity: 200 Refills: 3 Jae Moore Start : 08-Mar-2019 Active Start: 03-08-2019 2 times a day. [id number] Truetrack test I n vitro strip; Use as directed to check blood sugar 2 times daily [id number] 1 each once daily. [id number] Start: 10-21-2023 End: 10-20-2024 1 each once daily. [id number] Start: 08-17-2024 End: 08-17-2025 Goals Date Patient Goal Desired Activity /State Functional Status Date Assessment Result Facility 04-09-2023 Functional status Ambulates;Up ad ines [facility] Work Phone: NEGATED: Highlighted row Functional performance Functional status health issues are not documented Disease [facility] Work Phone: Mental Status Date Assessment Result Facility 04-09-2023 Cognitive function Voice/Name [facility] Work Phone: NEGATED: Highlighted row Cognitive function [Interpretation] Cognitive status health issues are not documented Disease [facility] Work Phone: Clinical Notes 05-10-2021 to 03-31-2025 Robert Mortensen Jr., DP - 03/31/2025 10:48 AM EDTAddendum Note - Margot Chadwick MA - 03/22/2025 10:26 AM EDTAddendum Note - Margot Chadwick MA - 03/22/2025 10:26 AM EDTPatient Instructions Note Date & Type Note Facility 03-31-2025 Note Nail care Patient is a pleasant 89-year-old gentleman who comes in today for at risk nail care. His diabetes is managed by primary including Jae Gannon, A1c unknown. Thinks it is 7% though but he is just not sure. Physical Vascular: DP pulses are palpable 2 out of 4 bilaterally. PT pulses are nonpalpable bilaterally. CFT is delayed with mild foot and ankle edema pitting in nature +1. Hair growth is absent bilaterally. Skin is shiny atrophic dysvascular. Nails 80075 left foot and 44616 right foot are markedly elongated thickened mycotic crumbling and dystrophic. Neuro: Sharp dull is blunted Babinski's is blunted. Musculoskeletal: Muscle strength is 5/5 with fair tone. Can easily wiggle toes without any clicking or catching. Derm: Mild hyperkeratosis plantar medial heel right and left no flaking or loss no deep nodules. Assessment and plan: Patient is a pleasant diabetic male with age and diabetic induced peripheral arterial disease and onychomycosis to 10 nails. -He does qualify for nail care given his elevated risk with arterial disease. -Procedure: Sharply debrided and debulk in height and length 10 onychomycotic nails with a sharp pair of nail nippers consistent with a q8 modifier Follow-up in 3 months for foot nail care. AUTHENTICATED BY ROBERT MORTENSEN JR., ON 03/31/2025 10:49:04 [facility] 03-31-2025 History of Present illness Narrative Nail care Patient is a pleasant 89-year-old gentleman who comes in today for at risk nail care. His diabetes is managed by primary including Jae Gannon, A1c unknown. Thinks it is 7% though but he is just not sure. Physical Vascular: DP pulses are palpable 2 out of 4 bilaterally. PT pulses are nonpalpable bilaterally. CFT is delayed with mild foot and ankle edema pitting in nature +1. Hair growth is absent bilaterally. Skin is shiny atrophic dysvascular. Nails 22510 left foot and 15812 right foot are markedly elongated thickened mycotic crumbling and dystrophic. Neuro: Sharp dull is blunted Babinski's is blunted. Musculoskeletal: Muscle strength is 5/5 with fair tone. Can easily wiggle toes without any clicking or catching. Derm: Mild hyperkeratosis plantar medial heel right and left no flaking or loss no deep nodules. Assessment and plan: Patient is a pleasant diabetic male with age and diabetic induced peripheral arterial disease and onychomycosis to 10 nails. -He does qualify for nail care given his elevated risk with arterial disease. -Procedure: Sharply debrided and debulk in height and length 10 onychomycotic nails with a sharp pair of nail nippers consistent with a q8 modifier Follow-up in 3 months for foot nail care. documented in this encounter [facility] 03-22-2025 Note Addended by: MARGOT CHADWICK on: 03/22/2025 10:26 AM Modules accepted: Orders [facility] 03-22-2025 Miscellaneous Notes Addended by: MARGOT CHADWICK on: 03/22/2025 10:26 AM Modules accepted: Orders documented in this encounter [facility] 03-22-2025 History of Present illness Narrative Pt called in and left voicemail asking for his insulin directions to be updated. Updated pt's medication list. General Cardiology Returning Patient Clinic Visit [facility] Physician [facility], Heart & Vascular 03/21/2025 Vianney Judge MD [address] [facility] [phone] [facility] Heart [facility] Vascular Physician Group, physician's office 03/21/2025 Patient: Jewel Chaves Date of : 1935 (89 y.o.) PCP: Palmira العراقي MD Chief Complaint: Follow-up Date of Service: 03/21/2025 History of Present Illness: Jewel Chaves is a 89 y.o. man with a past medical history of coronary artery disease (s/p multiple stenting), hypertension, dyslipidemia who presents today for follow-up. When I first met with him initially, we made some medication adjustments including cessation of Eliquis (hx of PE related to covid 19). In the meantime he has had issues with multiple blood line dyscrasias including anemia, thrombocytopenia, and leukopenia. At some point his aspirin was stopped however given his history of stents this was restarted and he tolerates well. He was also experiencing quite a bit of lower extremity edema, and furosemide was added to his regimen, this was suspected to be secondary to sodium indiscretion and elevated blood sugars. He presents today with his , he is overall doing very well, he is now using his oxygen at home as instructed. Able to do pretty much everything he wants to do, no orthopnea or paroxysmal nocturnal dyspnea Review of Systems: All systems were reviewed and noted to be negative unless otherwise stated in HPI. Past Medical History: Diagnosis Date Acid reflux Acute pancreatitis Angina pectoris Ankle sprain Arthritis Artificial joint pain BPH with obstruction/lower urinary tract symptoms CAD (coronary artery disease) Capsulitis Cataract COVID-19 Dumping syndrome Edema pancreatic Edema of foot Foot cramps Gallstone Heart attack (HCC) 04/26/2009 Hyperlipidemia Hypertension Liver disease Loss of weight Lower extremity edema 1+ Nocturia Obesity OM (onychomycosis) PAOD (peripheral arterial occlusive disease) Pulmonary embolism (HCC) Sleep apnea Swollen feet Synovitis and tenosynovitis TP (tinea pedis) Type 2 diabetes mellitus with stage 4 chronic kidney disease, with long-term current use of insulin (HCC) Umbilical hernia Varicose vein of leg Varicosities venous Past Surgical History: Procedure Laterality Date CARDIAC CATHETERIZATION 05/03/2009 NO EF ASSESSED CHOLECYSTECTOMY CORONARY ANGIOPLASTY WITH STENT PLACEMENT 05/03/2009 KERMIT of RCA, KERMIT RIGHT PDA, CORONARY ANGIOPLASTY WITH STENT PLACEMENT 05/01/[address] BIOPSY BONE MARROW CORE ONLY 09/22/2022 CT BIOPSY BONE MARROW CORE ONLY 09/22/2022 CT COLONOSCOPY 11/14/2022 CT COLONOSCOPY HERNIA REPAIR 1988 Inguinal Family History Problem Relation Age of Onset Cancer Mother Liver disease Father Lung cancer Brother Social History Tobacco Use Smoking Status Never Smokeless Tobacco Never Allergies: Metformin All of the above information has been reviewed at today's visit and modified if necessary. Home Medications: Current Outpatient Medications: allopurinoL (ZYLOPRIM) 100 MG tablet, Take 1 (one) tablet (100 mg total) by mouth daily ., Disp: , Rfl: amLODIPine (NORVASC) 5 MG tablet, Take 1 (one) tablet (5 mg total) by mouth daily ., Disp: , Rfl: ascorbic acid, vitamin C, 250 mg Chew, Chew and Swallow 1 (one) tablet (250 mg total) ., Disp: , Rfl: aspirin 81 MG EC tablet, Take 1 (one) tablet (81 mg total) by mouth daily ., Disp: , Rfl: atorvastatin (LIPITOR) 40 MG tablet, Take 1 (one) tablet (40 mg total) by mouth daily ., Disp: , Rfl: carvediloL (COREG) 6.25 MG tablet, Take 1 (one) tablet (6.25 mg total) by mouth 2 (two) times a day with meals ., Disp: , Rfl: cyanocobalamin, vitamin B-12, (VITAMIN B12 ORAL), Take 1 tablet by mouth daily ., Disp: , Rfl: ferrous sulfate (IRON ORAL), Take 325 tablets by mouth daily ., Disp: , Rfl: FreeMadeiraCloudyle [place] 2 Sensor Kit, , Disp: , Rfl: furosemide (LASIX) 40 MG tablet, Take 1.5 (one and a half) tablets (60 mg total) by mouth daily ., Disp: , Rfl: 3 gabapentin (NEURONTIN) 100 MG capsule, Take 1 (one) capsule (100 mg total) by mouth 2 (two) times a day ., Disp: , Rfl: lactulose (CHRONULAC) 10 gram/15 mL solution, Take 30 mL (20 g total) by mouth 3 (three) times a day ., Disp: , Rfl: Lantus Solostar U-100 Insulin 100 unit/mL (3 mL) InPn, Inject 40 Units under the skin once daily at bedtime., Disp: , Rfl: magnesium L-lactate (MAGTAB) 84 mg TbER, Take 1 (one) tablet (84 mg total) by mouth daily ., Disp: , Rfl: multivitamin with minerals tablet, Take 1 (one) tablet by mouth daily ., Disp: , Rfl: nitroGLYCERIN (NITROSTAT) 0.4 MG SL tablet, Place 1 (one) tablet (0.4 mg total) under the tongue every 5 (five) minutes as needed for chest pain ., Disp: 25 tablet, Rfl: 3 pantoprazole (PROTONIX) 40 MG tablet, Take 1 (one) tablet (40 mg total) by mouth daily ., Disp: , Rfl: primidone (MYSOLINE) 50 MG tablet, 1 (one) tablet (50 mg total) every night at bedtime ., Disp: , Rfl: spironolactone (ALDACTONE) 25 MG tablet, Take 1 (one) tablet (25 mg total) by mouth daily ., Disp: , Rfl: sucralfate (CARAFATE) 1 gram tablet, Take 1 (one) tablet (1 g total) by mouth 3 (three) times a day ., Disp: , Rfl: vitamins A,C,J-vwrd-odjuba 2,148 mcg-113 mg-45 mg-17.4mg Tab, Take by mouth ., Disp: , Rfl: Physical Exam: BP (!) 124/58 (BP Location: Left arm, Patient Position: Sitting, BP Cuff Size: X-large Adult) Pulse 77 Ht 5' 8 Wt 101.2 kg (223 lb 3.2 oz) SpO2 93% BMI 33.94 kg/m Constitutional: elderly gentleman, no acute distress Head: Normocephalic and atraumatic. Eyes: Conjunctivae are pale, no scleral icterus, no corneal arcus Neck: No acanthosis nigricans, no elevated jugular venous distension, no hepatojugular reflux Cardiovascular: Regular rate and rhythm, 2/6 holosystolic murmur noted, normal S1 and S2, no rubs or gallops, PMI is midline Pulses: +2 dorsalis pedis pulses bilaterally Musculoskeletal: Normal range of motion. No cyanosis. +2 pitting bilateral lower extremity edema Neurological: AOx3, moving all extremities normally Skin: Skin is warm and dry, normal hair pattern Psychiatric: Normal mood and affect, appropriate conversation Cardiovascular Studies: Echocardiogram completed in February 2024 at [facility] shows normal systolic function, mild to moderate tricuspid regurgitation and mild aortic insufficiency, pulmonary artery pressure 50 mmHg Labs: Lipid panel reviewed from September 2024 total cholesterol 92, HDL 30, LDL 22, triglycerides 201 Assessment and Plan: 1. Coronary artery disease, unspecified vessel or lesion type, unspecified whether angina present, unspecified whether kiowa tribe or transplanted heart Stable status post remote multivessel PCI Doing very well with modest intensity statin Continue aspirin 81 mg. Typically would not stop this medication unless platelets were less than 50,000 with complications of bleeding. Very important to continue aspirin given 15% chance risk of in-stent thrombosis with aspirin cessation 2. Primary hypertension Blood pressures are well controlled, no changes 3. Dyslipidemia lipids were drawn at his primary care physician visit, much appreciated, all within normal limits 4. Lower extremity edema Resolved, continue 60mg lasix and 25mg spironolactone Follow-up: Return in about 9 months (around 12/22/2025). Vianney Judge MD, [facility] Non-Invasive Cardiology [facility]ician [facility] P:[phone] F:[phone] documented in this encounter [facility] 03-21-2025 History of Present illness Narrative General Cardiology Returning Patient Clinic Visit [facility], Heart & Vascular 03/21/2025 Vianney Judge MD [address] [place] [phone] [facility] Physician Group, physician's office 03/21/2025 Patient: Jewel Chaves Date of : 1935 (89 y.o.) PCP: Palmira العراقي MD Chief Complaint: Follow-up Date of Service: 03/21/2025 History of Present Illness: Jewel Chaves is a 89 y.o. man with a past medical history of coronary artery disease (s/p multiple stenting), hypertension, dyslipidemia who presents today for follow-up. When I first met with him initially, we made some medication adjustments including cessation of Eliquis (hx of PE related to covid 19). In the meantime he has had issues with multiple blood line dyscrasias including anemia, thrombocytopenia, and leukopenia. At some point his aspirin was stopped however given his history of stents this was restarted and he tolerates well. He was also experiencing quite a bit of lower extremity edema, and furosemide was added to his regimen, this was suspected to be secondary to sodium indiscretion and elevated blood sugars. He presents today with his , he is overall doing very well, he is now using his oxygen at home as instructed. Able to do pretty much everything he wants to do, no orthopnea or paroxysmal nocturnal dyspnea Review of Systems: All systems were reviewed and noted to be negative unless otherwise stated in HPI. Past Medical History: Diagnosis Date Acid reflux Acute pancreatitis Angina pectoris Ankle sprain Arthritis Artificial joint pain BPH with obstruction/lower urinary tract symptoms CAD (coronary artery disease) Capsulitis Cataract COVID-19 Dumping syndrome Edema pancreatic Edema of foot Foot cramps Gallstone Heart attack (HCC) 04/26/2009 Hyperlipidemia Hypertension Liver disease Loss of weight Lower extremity edema 1+ Nocturia Obesity OM (onychomycosis) PAOD (peripheral arterial occlusive disease) Pulmonary embolism (HCC) Sleep apnea Swollen feet Synovitis and tenosynovitis TP (tinea pedis) Type 2 diabetes mellitus with stage 4 chronic kidney disease, with long-term current use of insulin (HCC) Umbilical hernia Varicose vein of leg Varicosities venous Past Surgical History: Procedure Laterality Date CARDIAC CATHETERIZATION 05/03/2009 NO EF ASSESSED CHOLECYSTECTOMY CORONARY ANGIOPLASTY WITH STENT PLACEMENT 05/03/2009 KERMIT of RCA, KERMIT RIGHT PDA, CORONARY ANGIOPLASTY WITH STENT PLACEMENT 05/01/[address] BIOPSY BONE MARROW CORE ONLY 09/22/2022 CT BIOPSY BONE MARROW CORE ONLY 09/22/2022 CT COLONOSCOPY 11/14/2022 CT COLONOSCOPY HERNIA REPAIR 1988 Inguinal Family History Problem Relation Age of Onset Cancer Mother Liver disease Father Lung cancer Brother Social History Tobacco Use Smoking Status Never Smokeless Tobacco Never Allergies: Metformin All of the above information has been reviewed at today's visit and modified if necessary. Home Medications: Current Outpatient Medications: allopurinoL (ZYLOPRIM) 100 MG tablet, Take 1 (one) tablet (100 mg total) by mouth daily ., Disp: , Rfl: amLODIPine (NORVASC) 5 MG tablet, Take 1 (one) tablet (5 mg total) by mouth daily ., Disp: , Rfl: ascorbic acid, vitamin C, 250 mg Chew, Chew and Swallow 1 (one) tablet (250 mg total) ., Disp: , Rfl: aspirin 81 MG EC tablet, Take 1 (one) tablet (81 mg total) by mouth daily ., Disp: , Rfl: atorvastatin (LIPITOR) 40 MG tablet, Take 1 (one) tablet (40 mg total) by mouth daily ., Disp: , Rfl: carvediloL (COREG) 6.25 MG tablet, Take 1 (one) tablet (6.25 mg total) by mouth 2 (two) times a day with meals ., Disp: , Rfl: cyanocobalamin, vitamin B-12, (VITAMIN B12 ORAL), Take 1 tablet by mouth daily ., Disp: , Rfl: ferrous sulfate (IRON ORAL), Take 325 tablets by mouth daily ., Disp: , Rfl: FreeStyle [place] 2 Sensor Kit, , Disp: , Rfl: furosemide (LASIX) 40 MG tablet, Take 1.5 (one and a half) tablets (60 mg total) by mouth daily ., Disp: , Rfl: 3 gabapentin (NEURONTIN) 100 MG capsule, Take 1 (one) capsule (100 mg total) by mouth 2 (two) times a day ., Disp: , Rfl: lactulose (CHRONULAC) 10 gram/15 mL solution, Take 30 mL (20 g total) by mouth 3 (three) times a day ., Disp: , Rfl: Lantus Solostar U-100 Insulin 100 unit/mL (3 mL) InPn, Inject 40 Units under the skin once daily at bedtime., Disp: , Rfl: magnesium L-lactate (MAGTAB) 84 mg TbER, Take 1 (one) tablet (84 mg total) by mouth daily ., Disp: , Rfl: multivitamin with minerals tablet, Take 1 (one) tablet by mouth daily ., Disp: , Rfl: nitroGLYCERIN (NITROSTAT) 0.4 MG SL tablet, Place 1 (one) tablet (0.4 mg total) under the tongue every 5 (five) minutes as needed for chest pain ., Disp: 25 tablet, Rfl: 3 pantoprazole (PROTONIX) 40 MG tablet, Take 1 (one) tablet (40 mg total) by mouth daily ., Disp: , Rfl: primidone (MYSOLINE) 50 MG tablet, 1 (one) tablet (50 mg total) every night at bedtime ., Disp: , Rfl: spironolactone (ALDACTONE) 25 MG tablet, Take 1 (one) tablet (25 mg total) by mouth daily ., Disp: , Rfl: sucralfate (CARAFATE) 1 gram tablet, Take 1 (one) tablet (1 g total) by mouth 3 (three) times a day ., Disp: , Rfl: vitamins A,C,Q-cwjy-qhibwd 2,148 mcg-113 mg-45 mg-17.4mg Tab, Take by mouth ., Disp: , Rfl: Physical Exam: BP (!) 124/58 (BP Location: Left arm, Patient Position: Sitting, BP Cuff Size: X-large Adult) Pulse 77 Ht 5' 8 Wt 101.2 kg (223 lb 3.2 oz) SpO2 93% BMI 33.94 kg/m Constitutional: elderly gentleman, no acute distress Head: Normocephalic and atraumatic. Eyes: Conjunctivae are pale, no scleral icterus, no corneal arcus Neck: No acanthosis nigricans, no elevated jugular venous distension, no hepatojugular reflux Cardiovascular: Regular rate and rhythm, 2/6 holosystolic murmur noted, normal S1 and S2, no rubs or gallops, PMI is midline Pulses: +2 dorsalis pedis pulses bilaterally Musculoskeletal: Normal range of motion. No cyanosis. +2 pitting bilateral lower extremity edema Neurological: AOx3, moving all extremities normally Skin: Skin is warm and dry, normal hair pattern Psychiatric: Normal mood and affect, appropriate conversation Cardiovascular Studies: Echocardiogram completed in February 2024 at [facility] shows normal systolic function, mild to moderate tricuspid regurgitation and mild aortic insufficiency, pulmonary artery pressure 50 mmHg Labs: Lipid panel reviewed from September 2024 total cholesterol 92, HDL 30, LDL 22, triglycerides 201 Assessment and Plan: 1. Coronary artery disease, unspecified vessel or lesion type, unspecified whether angina present, unspecified whether ki[place] tribe or transplanted heart Stable status post remote multivessel PCI Doing very well with modest intensity statin Continue aspirin 81 mg. Typically would not stop this medication unless platelets were less than 50,000 with complications of bleeding. Very important to continue aspirin given 15% chance risk of in-stent thrombosis with aspirin cessation 2. Primary hypertension Blood pressures are well controlled, no changes 3. Dyslipidemia lipids were drawn at his primary care physician visit, much appreciated, all within normal limits 4. Lower extremity edema Resolved, continue 60mg lasix and 25mg spironolactone Follow-up: Return in about 9 months (around 12/22/2025). Vianney Judge MD, [facility] Non-Invasive Cardiology [facility] Phys[facility] P:[phone] F:[phone] documented in this encounter [facility] 03-21-2025 Note General Cardiology R eturning Patient Clinic Visit [facility], Heart & Vascular 03/21/2025 Vianney Judge MD [address] [place] [phone] [facility] Heart [facility] Vascular Physician Group, physician's office 03/21/2025 Patient: Jewel Chaves Date of : 1935 (89 y.o.) PCP: Palmira العراقي MD Chief Complaint: Follow-up Date of Service: 03/21/2025 History of Present Illness: Jewel Chaves is a 89 y.o. man with a past medical history of coronary artery disease (s/p multiple stenting), hypertension, dyslipidemia who presents today for follow-up. When I first met with him initially, we made some medication adjustments including cessation of Eliquis (hx of PE related to covid 19). In the meantime he has had issues with multiple blood line dyscrasias including anemia, thrombocytopenia, and leukopenia. At some point his aspirin was stopped however given his history of stents this was restarted and he tolerates well. He was also experiencing quite a bit of lower extremity edema, and furosemide was added to his regimen, this was suspected to be secondary to sodium indiscretion and elevated blood sugars. He presents today with his , he is overall doing very well, he is now using his oxygen at home as instructed. Able to do pretty much everything he wants to do, no orthopnea or paroxysmal nocturnal dyspnea Review of Systems: All systems were reviewed and noted to be negative unless otherwise stated in HPI. Past Medical History: Diagnosis Date Acid reflux Acute pancreatitis Angina pectoris Ankle sprain Arthritis Artificial joint pain BPH with obstruction/lower urinary tract symptoms CAD (coronary artery disease) Capsulitis Cataract COVID-19 Dumping syndrome Edema pancreatic Edema of foot Foot cramps Gallstone Heart attack (HCC) 04/26/2009 Hyperlipidemia Hypertension Liver disease Loss of weight Lower extremity edema 1+ Nocturia Obesity OM (onychomycosis) PAOD (peripheral arterial occlusive disease) Pulmonary embolism (HCC) Sleep apnea Swollen feet Synovitis and tenosynovitis TP (tinea pedis) Type 2 diabetes mellitus with stage 4 chronic kidney disease, with long-term current use of insulin (HCC) Umbilical hernia Varicose vein of leg Varicosities venous Past Surgical History: Procedure Laterality Date CARDIAC CATHETERIZATION 05/03/2009 NO EF ASSESSED CHOLECYSTECTOMY CORONARY ANGIOPLASTY WITH STENT PLACEMENT 05/03/2009 KERMIT of RCA, KERMIT RIGHT PDA, CORONARY ANGIOPLASTY WITH STENT PLACEMENT 05/01/[address] BIOPSY BONE MARROW CORE ONLY 09/22/2022 CT BIOPSY BONE MARROW CORE ONLY 09/22/2022 CT COLONOSCOPY 11/14/2022 CT COLONOSCOPY HERNIA REPAIR 1988 Inguinal Family History Problem Relation Age of Onset Cancer Mother Liver disease Father Lung cancer Brother Social History Tobacco Use Smoking Status Never Smokeless Tobacco Never Allergies: Metformin All of the above information has been reviewed at today's visit and modified if necessary. Home Medications: Current Outpatient Medications: allopurinoL (ZYLOPRIM) 100 MG tablet, Take 1 (one) tablet (100 mg total) by mouth daily ., Disp: , Rfl: amLODIPine (NORVASC) 5 MG tablet, Take 1 (one) tablet (5 mg total) by mouth daily ., Disp: , Rfl: ascorbic acid, vitamin C, 250 mg Chew, Chew and Swallow 1 (one) tablet (250 mg total) ., Disp: , Rfl: aspirin 81 MG EC tablet, Take 1 (one) tablet (81 mg total) by mouth daily ., Disp: , Rfl: atorvastatin (LIPITOR) 40 MG tablet, Take 1 (one) tablet (40 mg total) by mouth daily ., Disp: , Rfl: carvediloL (COREG) 6.25 MG tablet, Take 1 (one) tablet (6.25 mg total) by mouth 2 (two) times a day with meals ., Disp: , Rfl: cyanocobalamin, vitamin B-12, (VITAMIN B12 ORAL), Take 1 tablet by mouth daily ., Disp: , Rfl: ferrous sulfate (IRON ORAL), Take 325 tablets by mouth daily ., Disp: , Rfl: FreeStyle [place] 2 Sensor Kit, , Disp: , Rfl: furosemide (LASIX) 40 MG tablet, Take 1.5 (one and a half) tablets (60 mg total) by mouth daily ., Disp: , Rfl: 3 gabapentin (NEURONTIN) 100 MG capsule, Take 1 (one) capsule (100 mg total) by mouth 2 (two) times a day ., Disp: , Rfl: lactulose (CHRONULAC) 10 gram/15 mL solution, Take 30 mL (20 g total) by mouth 3 (three) times a day ., Disp: , Rfl: Lantus Solostar U-100 Insulin 100 unit/mL (3 mL) InPn, Inject 40 Units under the skin once daily at bedtime., Disp: , Rfl: magnesium L-lactate (MAGTAB) 84 mg TbER, Take 1 (one) tablet (84 mg total) by mouth daily ., Disp: , Rfl: multivitamin with minerals tablet, Take 1 (one) tablet by mouth daily ., Disp: , Rfl: nitroGLYCERIN (NITROSTAT) 0.4 MG SL tablet, Place 1 (one) tablet (0.4 mg total) under the tongue every 5 (five) minutes as needed for chest pain ., Disp: 25 tablet, Rfl: 3 pantoprazole (PROTONIX) 40 MG tablet, Take 1 (one) tablet (40 mg (more content not included)... [facility] 03-21-2025 Instructions Margot Chadwick MA - 03/21/2025 10:27 AM EDT How to Contact your Care Team: Provider: Dr. Vianney Judge MD Clinic Nurse: [facility] MA: CESAR Culver REFILLS: When in need for refills please call your care team or the office at [phone]. Please include medication name, pharmacy name, and specify 30-day or 90-day supply. Please check with your pharmacy within 24 hours of request for your refill. You must follow up as directed to continue current refills. Thank you! documented in this encounter [facility] 03-21-2025 Instructions Margot Chadwick MA - 03/21/2025 10:27 AM EDT How to Contact your Care Team: Provider: Dr. Vianney Judge MD Clinic Nurse: [facility] MA: CESAR Culver REFILLS: When in need for refills please call your care team or the office at [phone]. Please include medication name, pharmacy name, and specify 30-day or 90-day supply. Please check with your pharmacy within 24 hours of request for your refill. You must follow up as directed to continue current refills. Thank you! documented in this encounter [facility] 03-13-2025 History of Present illness Narrative Patient ID: Jewel Chaves is a 89 y.o. male. Subjective HPI Chief Complaint Chief Complaint Patient presents with Anemia Stage 4 chronic kidney disease History of the Present Illness 08/10/2019. Visit with Dr. Jose J Martin for chronic kidney disease and hypertension. Chief complaint was fatigue and need to lose weight 09/13/2019. The patient has had long-term history of microcytic anemia going back to at least 2018 at which time his white count was 5.2 hemoglobin was 13.8 hematocrit 40.5 and a platelet count of 157,000. His MCV was 105 MCHC was 34. White blood cell differential count showed 66% polys, 17 lymphs, 11 monos and 4 eosinophils. 10/12/2019. Seen by primary care for probable shingles treated with Valtrex with chief complaint of waxing and waning left flank pain radiating up under his ribs, somewhat responsive to exercise.. He had a history of pulmonary embolus and was on Eliquis long-term. 12/26/2019. Seen by Dr. Rick for elevated PSA, BPH and erectile dysfunction. PSA in 2017 was 2.94, in 2018 it was 2.74 and in 2019 it was 4.03. We discussed biopsy and the patient wanted to have this followed and not biopsy. 01/09/2020. Follow-up with Jae Gannon APRN primary care. Referred to Dr. Chopra for colonoscopy and CT scan of the chest was ordered for follow-up of questionable lingular nodule. 01/11/2020. CT scan of the chest showed a stable 6 mm nodular lesion near the fissure in the lingula. 01/13/2020. Seen by Dr. Chopra who noted that the patient had had diarrhea off-and-on since cholecystectomy and had intermittent left-sided pain. He had a history of colon polyps. 02/21/2015. 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 Seen by Dr. Nancy Rios in follow-up. She noted that he had an abnormal CBC with macrocytic indices with a normal B12 level. The patient denies alcohol use. Hemoglobin A1c was 6.2. BUN was 33 creatinine was 1.74. 07/02/2020. Follow-up with Dr. Rick. PSA had come down from 4.03-3.77 11/05/2020 through 11/13/2020. Admitted to the hospital having been brought to the ED by squad after he fell forward on his toilet and was unable to get up. He denied hitting his head or losing consciousness. He blamed it on having back pain and shoulder pain for several weeks. He was febrile with a temperature of 100.9 and hypoxic with pulse ox of 86% on room air. Respirations were 24. He was positive for COVID and was treated with intravenous antibiotics and remdesivir, increased supplemental oxygen. He was able to be discharged to rehabilitation. Repeat CBC showed white count 4.3 with a hemoglobin 12.9 hematocrit 38.8 with an MCV of 102 and a platelet count of 173,000. White blood cell differential count showed minimal absolute lymphocytopenia at 0.6 with the lower limits of normal being 0.8. 12/31/2020. Follow-up with Dr. Rick. PSA was 9.9 in December. Decided to have prostate biopsy done on 01/21/2021. Results showed BPH. 08/07/2021. Follow-up with Dr. Rick. PSA in July was 2.77 02/05/2022. CBC showed white count 4.3 with hemoglobin 11.7 hematocrit 34.4 with an MCV of 107. Platelet count was 153,000. White blood cell differential count was essentially normal. 04/01/2022. CBC showed white count 3.6 with hemoglobin 11.6 hematocrit 34.4 and platelet count 117,000 with a normal white blood cell differential. 04/28/2022. Referred to Dr. Parra because of pancytopenia by Emma Hawkins APRN. CBC showed a white count of 3.9 with hemoglobin 12.3 hematocrit 36.1 and platelet count 129,000 with a normal differential. PSA was 3.26. The patient said that he felt well except for having increased fatigue. He continued on long-term anticoagulation. He was able to carry out his ADLs. He did complain of easy bruising. 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 Dr. Parra felt that there was a large component secondary to his chronic kidney disease. There was no evidence of nutritional deficiency. He checked him for hemolysis and monoclonal gammopathy and ordered an ultrasound for hepatosplenomegaly and testing for hepatitis, HIV and MAURIZIO. He said he would rather observe the patient rather than pursuing a bone marrow biopsy. 05/28/2022. Repeat lab data showed white count 3.9 with hemoglobin 12.3 hematocrit 36.1 and platelet count 129,000. BUN was 36 creatinine was 1.78. He had mild elevation of AST. Retake count was 2.3%. Flow cytometry showed a small clonal B-cell population. Hepatitis B was nonreactive. Hep C testing was negative. Serum protein electrophoresis was normal. Haptoglobin was normal. LDH was normal. He said that the possibility of MDS could not be ruled out. Ultrasound showed fatty liver but no splenomegaly. He plan for EPO level and NGS for myeloid mutation. 07/03/2022. 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 2022. Seen by Dr. Dr. العراقي. Patient was referred to dermatology for several skin lesions. He was referred to neurology because of his tremor that was not improving. She increased his glimepiride. 08/18/2022. CBC showed white count 3.0 with hemoglobin 10.5 hematocrit 31.3 and a platelet count of 106,000 MCV was 111. 08/27/2022. Follow-up with Dr. 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 He was suspicious for MDS. He referred him for a bone marrow biopsy. 10/02/2022. Follow-up with Dr. Parra. Bone marrow biopsy showed low-grade MDS. R IPSS score was low or very low depending on a karyotype which was still pending. We discussed initiating erythropoietin with Aranesp but the patient deferred and the decision was made to monitor him. 11/12/2022. CBC showed white count 3.4 with hemoglobin 10.3 hematocrit 32.2 and a platelet count of 137,000. MCV was 115. White blood cell differential count was normal. 11/14/2022. Follow-up with Dr. Parra. The patient did say that he had following getting out of the shower but did not sustain any injuries. He had been started by Dr. Martin on insulin for his diabetes which was helpful. Patient continued to be active inside his house. He remains on Eliquis. BR-IPSS score is very low. Counts remain stable. 01/30/2023. CBC showed a white count of 2.6 with hemoglobin 8.7 hematocrit 27.1 and a platelet count 97,000. MCV was 115. White blood cell differential count showed that he had an absolute neutrophil count of 1.36. 02/09/2023. CBC showed a white count of 2.5 with a hemoglobin 9.0 hematocrit of 27.7 with a platelet count of 92,000. MCV was 114. 02/16/2023. Follow-up with Elaine Betts APRN. Even though his hemoglobin had dropped to 9 the patient did not want to start his erythropoietin injections. 03/12/2023. CBC showed white count of 2.5 with a hemoglobin of 7.6 hematocrit 23.8 and a platelet count of 101,000. Absolute neutrophil count was 1.17. 03/16/2023 through 03/20/2023. Admitted to the hospital with anemia and generalized weakness black stools dizziness with a hemoglobin of 6.7. His BUN was [address] scan of the abdomen showed no acute process. There were findings consistent with atypical healing of the previous rib fracture with question Paget's disease although it was nonspecific. He was transfused 2 units packed red blood cells. EGD found 3 erosions in the cardia. He was prescribed Carafate. 03/25/2023. Follow-up with Dr. Dr. العراقي after discharge. CBC showed white count 1.9 with hemoglobin 8.6 hematocrit 28.3 and a platelet count of 140,000. Absolute neutrophil count was 1.06. Patient did not tolerate Carafate and stopped it. He was prescribed oral iron twice a day. He had not been prescribed a PPI which was then started. 04/02/2023. CBC showed white count of 1.9 with hemoglobin 7.7 hematocrit 24.8 and a platelet count of 87,000. 04/14/2023. CBC showed a white count of 1.9 with hemoglobin of 8.7 hematocrit 28.1 and platelet count of 89,000. 04/24/2023. Followed up with Dr. Dr. العراقي who reported that he was hospitalized again in [place] for GI bleed. At that time his Eliquis was discontinued and he was changed to Protonix and taken off his baby aspirin. Once again he was started on Carafate but did not tolerate it. 05/16/2023. CBC showed white count of 2.4 with hemoglobin 9.2 hematocrit 27.3 and a platelet count of 110,000. Absolute neutrophil count was 1.36. 05/18/2023. Follow-up with Elaine Betts. The patient had recently had a colonoscopy and had cauterizations he noted that he had dyspnea with exertion but no resting shortness of breath. He was on prednisone at that time. His sugars were in the 300s. He was on insulin. 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 Current level was found to be saturated. Once again the patient was reluctant to start CHRISTIE. 06/15/2023. Follow-up with Elaine Betts. CBC showed white count 1.8 with a hemoglobin 8.9 hematocrit 26.9 and a platelet count of 100,000. Absolute neutrophil count was 0.96. 07/08/2023. CBC showed a white count of 1.8 with hemoglobin 9.5 hematocrit 28.8 and a platelet count of 85,000 with an absolute neutrophil count of 0.99. 07/15/2023. Follow-up with Dr. Rick. PSA has gone down to 1.87. 08/10/2023. Follow-up with Elaine Betts who noted the patient remained on oxygen and CPAP. He says that he is awakening in the middle of the night around 3 to 4:00 in the morning. Sugars have been in the 300s. Neuropathy was unchanged. He had been started on erythropoietin every 3 weeks 09/22/2023. Follow-up with Elaine Betts. No improvement in his hemoglobin. White count had improved to 2.1 platelets were baseline. He had been placed on 40 mg of prednisone and continued on erythropoietin 300 mcg every 3 weeks. 11/03/2023. Follow-up with Elaine Betts. No improvement in hemoglobin. Symptomatically he was doing well. Plan was to increase frequency of his darbepoetin to every 2 weeks. 12/15/2023. Follow-up with Elaine Betts. Now on erythropoietin injections every 2 weeks. There was a discussion concerning repeat bone marrow biopsy with counts stayed low. 01/12/2024. Follow-up with Elaine Betts. No improvement in his hemoglobin. Patient was agreeable to repeat bone marrow biopsy. She also ordered a CAT scan of the chest abdomen and pelvis without contrast. 01/22/2024. CAT scan showed severe coronary artery calcifications. There is evidence of bronchiectasis in the lower lobes increased compared to previous CT scan from 2019. Predominantly groundglass opacities with bibasilar prominence. There is some subpleural sparing of the left upper lobe. There is a 3 mm nodule in the right upper lobe which was unchanged for several years. 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 There is a small fat-containing periumbilical hernia and bilateral inguinal hernias. Spleen size is at the upper limits of normal being 12.7 cm in length slightly increased when compared to study from 2019. Cysts were seen in the kidneys with diffuse cortical atrophy and a 4 mm hyperdense focus in the interpolar region of the right kidney possibly a stone. Prostatism was noted for gland measuring 6.2 cm. 01/28/2024. Seen by Dr. Harp for shortness of breath. He felt the patient had possible chronic interstitial lung disease versus periodic aspiration, hypoxia dyspnea on exertion. Further tests were ordered including high-resolution CT scan, complete pulmonary function testing, simple pulmonary stress test and follow-up. 02/09/2024. Follow-up with Elaine Betts. Erythropoietin injections continued every 2 weeks which the patient was tolerating well. 02/16/2024. Bone marrow biopsy was performed showing a hypercellular bone marrow at 50% with dyserythropoiesis. There are 1% blasts consistent with persistent myeloid neoplasm. Flow cytometry showed a small clonal CD5 negative, CD10 negative B-cell population and a polytypic background. 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 There was a very small abnormal T-cell population that could be incidental. Next generation sequencing showed 2 U2AF 1 variants, 1 of which was negative. The other had been previously seen. The marrow also showed dyserythropoiesis with bilobate forms and forms with irregular nuclear contours as well as blebbing. 02/23/2024. CBC showed white count 1.5 with a hemoglobin of 8.3 hematocrit 25.9 and platelet count of 71,000 with 37% neutrophils, 53 lymphocytes, 4 monos, 4 eosinophils with an absolute neutrophil count of 0.57. 02/24/2024. Return visit with Dr. Harp. He noted that the high-resolution CT scan showed no significant change from the previous CT scan the month before. Pulmonary function testing showed no response to bronchodilator and there was mild restrictive change with some suggestion of airway inflammation. The patient had difficulty doing the test because of persistent coughing. 6-minute walk test showed that the patient was able to maintain saturations at 93% with 2 L of oxygen per minute continuously. The test was terminated because of dyspnea. With his hypoxia on room air it was recommended that he be on oxygen continuously to keep his saturation greater than or equal to 92%. He continued on oxygen with his CPAP at 3 L at nighttime. 03/11/2024. This is my first visit with Mr. Chaves and his family. We went over some of the results of the bone marrow biopsy. I told him that I would have to wait until the chromosomal analysis returned. I also note the possibility of low-grade lymphoma. He may need to have an opinion with malignant hematology at [facility]. Stepdaughter who is here with him and his today is his advocate for maintaining his quality of life. She is an employee at a local nursing facility and is concerned about many clients she has who seem to be getting treated aggressively. 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 He will continue on this treatment for now. He is low counts were discussed and he knows that he is at higher risk for infection and bleeding. He continues on oxygen supplementation continuously. They will return in 2 weeks at which time laboratory tests will be performed. He just had a lesion removed from the dorsum of his right hand at the base of his first and second fingers. Stitches are still in place. It seems to be healing well without any significant bleeding or infection. He was told that it looked benign. 03/14/2024. Follow-up with Dr. Vianney Judge of cardiology who saw him in follow-up of his coronary artery disease with multiple stents having been placed, hypertension, dyslipidemia and previous pulmonary embolus related to COVID-19. She had stopped his Eliquis. 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 She noted that at some point his aspirin had been stopped but given his history of stents this was restarted and he tolerated it well. She said that his blood pressure was well-controlled. She noted blood sugars were between 150-2 50. She noted the patient was supposed to be using oxygen with exertion but the patient was not sure what rate it was supposed to be. She says that she would not stop his aspirin unless his platelets were less than 50,000 with complications of bleeding. She said it was very important to continue aspirin given a 15% chance of in-stent thrombosis with aspirin cessation. She increased her furosemide to 80 mg twice a day because of bilateral lower extremity edema and spironolactone to 25 mg twice daily until symptoms improve and encouraged him to cut back on his salt intake. She was see him again in about 9 months. 03/15/2024. Follow-up with Dr. Adams of ophthalmology who started him on Naphcon-A drops 1 drop 3 times a day in both eyes for excessive tearing 03/16/2024. Followed up with Dr. Robert Mortensen of podiatry who noted decreased pedal pulses 2 out of 4. He had footcare. 03/25/2024. Follow-up with Dr. Harp. Review of his x-rays showed no change. Physical examination showed decreased breath sounds but no inspiratory crackles that were previously heard. 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 He plan to repeat CT scan in July. 03/25/2024. He is here to follow-up on his bone marrow results. I told him that the chromosomal analysis would not be forthcoming before because the specimen failed to grow in culture. 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 We reviewed the fact that he is recommended to have at least 6 months of his erythropoietin before we decide whether or not it is a failure. He is agreeable to this. We will increase his dose of darbepoetin. He knows to be on the look out for any signs of infection or bleeding and to report this if it happens. We reviewed his most recent CBC. We will see him again in 2 weeks with his next injection. 03/31/2024. Follow-up with Dr. Dr. العراقي for his Medicare wellness visit. His magnesium dose was changed to twice daily indefinitely. 04/08/2024. He is here today for his darbepoetin injection. We have increased his dose to 500 mcg every 2 weeks. Will see if this has any effect. Laboratory dated today shows that his sugar is 290 and his sodium is 134. BUN is 46 and creatinine is 2.31. CBC shows white count 1.5 with a hemoglobin 8.1 hematocrit 24.7 and a platelet count of 71,000 which is very much like his most recent CBC. His absolute neutrophil count is 0.57. I talked to him about his current status which he feels is fairly stable. He is off oxygen. He has had no bleeding and no signs of infection. He understands that we have increased his dose of darbepoetin and we will watch his counts. He will report any side effects. He has continued to receive his darbepoetin injections. 05/16/2024. Emergency department [facility]. He developed a rash on both lower extremities which started a week ago which is an erythematous papular rash. He denied any pain or itching. He did not have any vesicle formation. It is bilateral. He has had a shingles injection. He was told that he had disseminated zoster and was started on valacyclovir a gram twice daily for 7 days. 05/20/2024. Seen by Dr. Dr. العراقي who said that the rash has not gotten any worse and might be a little bit better. She noted that there were no vesicles no open areas no areas of secondary infection. 05/20/2024. He is here to receive his erythropoietin injection and to have a blood count. I told him it is not likely that this is disseminated zoster because it is nowhere else on his body but only on his lower extremities. This could be stasis dermatitis. I do not see any signs of vesicle formation and there never were any. It is mostly on the anterior shins. It is all below the knee. CBC today shows white count 1.4 with hemoglobin 8 hematocrit 25.4 platelet count 67,000 with 37 neutrophils 53 lymphocytes 5 monos 2 eosinophils. He is serum chemistry showed a sugar of 285 BUN of 49 creatinine of 2.67. We told him he needed to keep his hydration status high. He will continue with his injections today. Blood pressure today is 153/64. He has had no bleeding and no infection. He has had no chest pain or pressure. He is able to participate in his usual activities including mowing the yard. He has continued to receive his darbepoetin and has followed up with podiatry for nail and callus care. 07/01/2024. He is here in routine follow-up. He says that he is doing well. He has had no infections or bleeding. He has had no mouth sores. He has had continued swelling in his legs a little bit worse on the left than on the right. Blood sugar was greater than 300 but he admits to dietary indiscretion. Has had no chest pain. His blood pressure was 149/63. He says that his breathing is stable. He is using his oxygen at home at night and when he travels that he does not have it on today. His lab data has shown no sign of improvement so far with white count 1.3, hemoglobin 8.6 hematocrit 27.2 and a platelet count of 69,000. White blood cell differential count shows 38% polys, 50 lymphs, 5 monos, 2 eosinophils. We plan a 6-month trial of this dose of darbepoetin which will extend until September. We will see him again in about a month. 07/06/2024. CT scan of the chest showed mild streaky scarring in the lung bases bilaterally. The previously seen groundglass opacities probably be minimally improved. Calcified pleural plaques are seen without consolidation effusion or pneumothorax. There is no adenopathy seen by CT size criteria. Minimal hepatic steatosis was seen as well as calcified granuloma in the spleen and a somewhat atrophic pancreas. DJD was seen in the spine. 07/07/2024. Seen by Dr. 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 He noted myelodysplasia and that he was being followed for his anemia receiving CHRISTIE. He did not change any of his medications And said that he would see him again in about 6 months 07/12/2024. Follow-up by Dr. Harp at which time he told the patient he could decrease his oxygen to 2 and he would repeat a CT scan in 6 months and see him after that. 07/29/2024. He is here today in routine follow-up. He will get his shot today. Laboratory data shows no improvement. We reviewed that we will follow him for 6 months on this treatment to see if there is any improvement. Mr. Chaves says that he has had no significant bleeding. I see some red spots on the soft palate. His appetite has been good and he has gained weight of 1 pound since last time I saw him about a month ago. He has had no other signs of infection or deterioration in his status. He knows he is at risk for serious infection or bleeding. We will continue on this treatment pathway. He will see him again in a month. Interval Note 08/04/2024. Seen by Dr. 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 BUN was 47 and creatinine was 2.33 with an EGFR of 26. She noted that he did have some mild edema of the left lower leg and was in the habit of wearing compression stockings. He denied any increase in shortness of breath. She said that she wanted to stop his spironolactone which was 25 mg and appeared that it was started for edema. She said that he would check his blood pressure and weights for the next 2 weeks and then have repeat laboratory data. Spironolactone was discontinued. 08/12/2024. Laboratory data showed a BUN of 50 and a creatinine of 2.6, worse than before EGFR was 22. Sugar was 389. On 08/22/2024 she told him to stay off spironolactone and call if he had increasing swelling or shortness of breath. He was to continue weighing himself. 08/26/2024. Repeat laboratory data showed a BUN of 45 and a creatinine of 2.41 with a sugar of 374. He was continued on erythropoietin injections. 09/09/2024. BUN was 44 creatinine was 2.33 and sugar was 430. 09/20/2024. [facility] emergency [facility] visit for tremor. The patient reported that his tremor was worse at night. He denied any history of restless leg syndrome. He said that his upper extremity tremor was relieved by movement. He has a history of previous movement disorder or any other neurologic symptoms. At that time he said that he was taking 20 mg of Lasix twice a day. Aldactone was still on his medication list. BUN is 43 creatinine was 2.45 and sugar was 373. CT of the head showed no evidence of bleeding there was mild to moderate brain parenchymal atrophy and white matter changes. He was referred to neurology. 09/23/2024. BUN was 15 creatinine was 2.60. Sugar was 353. At that time it was documented that he was taking 60 mg of Lasix daily and continuing Aldactone. He did have bilateral pedal edema. He was continued on family preservation officer protein injections. He weighed 229 pounds. 09/26/2024. BUN was 51 and creatinine was 2.64 with a sugar of 285. 10/10/2024. BUN was 44 creatinine was 2.47 with a sugar of 313. 10/11/2024. [facility] ED visit for a rash on his lower extremities. He was taking Lasix 40 mg twice a day and Aldactone daily. Blood pressure was 121/52 and he weighed 230 pounds. There was some mild erythema in his left lower extremity but was not weeping. He was slightly warm to the touch. It was said that this could be early cellulitis and a prescription for Keflex was written. 10/17/2024. He followed up with Dr. Dr. العراقي who said that they could switch antibiotics to doxycycline and recommended a follow-up appointment. He was seen on the following day and continued on doxycycline for mild to moderate erythema of the inner ankle lower leg he was also treated with gabapentin for his essential tremor. 10/24/2024. BUN was 43 creatinine was 2.46 with a sugar of 313. Seen in follow-up by Elaine Betts was continued on Depakote with stable counts. 10/31/2024. Followed up with Dr. Dr. العراقي with leg redness. The patient said that he thought he had the flu. His weight was 226 pounds. Blood pressure was 126/74. Laboratory data 2 days prior to the visit showed that his BUN was 52 and his creatinine was 2.62. Sugar was 151. 11/03/2024. Followed up with Dr. Elke Martin with a decrease in his swelling and improvement in his legs lesions. She documented that he had had 2 falls without lightheadedness or dizziness. 11/07/2024. Laboratory data showed a sugar of 313 BUN of 41 and creatinine of 2.56 with an EGFR of 23. 11/16/2024. Seen by Dr. Mariah Can of [facility] neurology because of his tremors. He mentioned that gabapentin can cause swelling. He was recently discontinued. Symptoms appear to be improved. He noted the patient had already been on primidone. He had complained of chronic numbness of the left thumb and right thumb. 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 He was reluctant to see orthopedic reduction and risks were recommended as well as exercises to maintain strength. He said that he could continue primidone 50 mg p.o. nightly for essential tremor and increase the dose if needed and to avoid caffeine. 11/21/2024. BUN was 47 creatinine was 2.70 with an EGFR of 22. Sugar was 142. 12/05/2024. Laboratory data showed a BUN of 46 creatinine 2.42 with a sugar of 218. Follow-up with Elaine Betts at which time the patient said that he wanted to stay on erythropoietin. Repeat bone marrow was discussed with the patient was reluctant to do that or to see Dr. Anguiano for second opinion. 12/19/2024. Laboratory data showed a BUN of 49 creatinine 2.53 with a sugar of 300. 01/02/2025. BUN was 57 creatinine was 2.86 with a sugar of 284. Followed up with Elaine Betts still not wanting to get another opinion. Discussion was around supportive care and making sure that he understood the dangers of cytopenias. 01/03/2025. Follow-up with Dr. Dr. العراقي. No changes made in his medications. 01/06/2025. CT scan of the chest without contrast showed moderate basilar and subpleural predominant fibrosing interstitial lung disease with architectural distortion in the absence of honeycombing which have been waxing and waning the degree of inflammatory change had decreased over the past year. Densely calcified coronary arteries were seen and a new right retroareolar nodular appearing soft tissue measuring 1.6 cm and could represent asymmetric clinically mass via but this needed to have follow-up. 01/13/2025. Followed up with Dr. Harp. He noted that pulse ox on room air was 90% and on repeat was 96. 01/18/2025. He is here today with his . We wanted to make sure that he understood that his counts were not doing well and that he had potential problems with infections, bleeding and anemia that might cause him to have chest pains or increasing shortness of breath. We talked about the possibility of transfusions if he became more symptomatic. He verbalized understanding. He is not interested in another opinion at this time. He is not interested in being treated more aggressively at this time. He is more interested in going through his medicines and making sure that he needed all of them. We did identify that he is on carvedilol and metoprolol. He is also on sucralfate 3 times a day and pantoprazole 40 mg twice a day. He says that he is not experiencing any heartburn and has not for a while. We went through his medication list and noted what it was for. I encouraged him to talk to primary care about these issues. He has an appointment to see his registrar museum in the upcoming weeks. His blood pressure today 137/67. His most recent BUN and creatinine were 57 and 2.86 which I am sure have something to do with his state of hydration. He currently says that he is taking 1-1/2 of a 40 mg Lasix tablet daily and continues to take Aldactone 25 mg daily. He has prescriptions for both 25 and 50 mg of Aldactone. He has an upcoming appointment with [facility] in about 2 weeks. 02/13/25: Patient is in office for routine follow-up. Patient was directed to be seen in the emergency room 01/30/25 after reporting weakness/shakiness that lead to him falling. His hemoglobin at the time was 7 g/dL he received 2 units PRBC's. Upon discharge he was sent to SNF for a few days of occupational therapy. He is ambulating with a walker to his appointment. He reports feeling steady on his feet, denies ay weakness today. He has continuous oxygen, however he is not using while in the office, denies any shortness of breath. Continuous oxygen 2-3L nc. today. Denies any bleeding or bruising. Bilateral edema has improved since he started drinking more water. He remains to take lasix 40mg and spirolactone 50mg. He denies any GI or Urinary issues. Occasional productive cough, clear phlegm. He states he feel to bad today. Home BGS 180-240's- PCP recently sent prescribed insulin pens, which is much easier for him to administer. He has home health coming twice weekly. 03/13/25: Patient is in office today, he arrives wearing his oxygen, reports increased shortness of breath. Otherwise denies any new clinical concerns. He denies any abnormal bleeding- (gum bleeding, epistaxis, hematuria, hematochezia, or melanic stool). He remains to have edema in lower extremities, no open sores/ulcers, manages with spironolactone and lasix. Continues to work with home PT/OT weekly. Denies any recent falls. Counts have dropped, Hemoglobin is 7.5, WBC 1.0, ANC 0.32, Lymphs 0.57, Plateletes 56,000. Patient is planning to take a bus trip on Thursday. Educated his once again on immunocompromised precautions, he verbalizes understanding. Discussed bleeding risks and precautions. Due to his drop in hemoglobin, and given his increased shortness of breath, discussed PRBC transfusion, patient was agreeable at this time, will order/schedule accordingly. Comorbidities GERD Arthritis, DJD BPH Coronary artery disease with history of myocardial, status post stent infarction History of dumping syndrome Hyperlipidemia History of skin cancer Obesity Obstructive sleep apnea on CPAP Peripheral arterial disease CKD 3 Diabetes with nephropathy History of cholecystectomy and hernia repair Essential tremor Hypertension Numbness in his fingers felt to be related to cervical disc disease. Monitoring Parameters Histories, physical examinations and CBCs with occasional bone marrow biopsies. Review of Systems - Oncology Review of Systems Constitutional: Positive for fatigue. Negative for appetite change and unexpected weight change. HENT: Negative for dental problem, mouth sores, nosebleeds and trouble swallowing. Eyes: Negative for visual disturbance. Respiratory: Positive for shortness of breath (with activity). Negative for cough. Cardiovascular: Positive for leg swelling. Gastrointestinal: Negative for abdominal pain, constipation, diarrhea, nausea and vomiting. Endocrine: Negative for polyuria. Genitourinary: Negative for dysuria, frequency and urgency. Musculoskeletal: Positive for arthralgias and myalgias. Skin: Positive for pallor. Negative for rash. Neurological: Negative for weakness, light-headedness, numbness and headaches. Hematological: Bruises/bleeds easily. Psychiatric/Behavioral: Negative for self-injury, sleep disturbance and suicidal ideas. The patient is not nervous/anxious. Past Medical History Medical History Past Medical History: Diagnosis Date Abnormal levels of other serum enzymes Abnormal liver enzymes Dependence on other enabling machines and devices CPAP (continuous positive airway pressure) dependence Encounter for examination of eyes and vision without abnormal findings Diabetic eye exam Localized edema Bilateral leg edema Old myocardial infarction History of myocardial infarction Other conditions influencing health status 11/09/2019 Uncontrolled diabetes mellitus type 2 without complications Pain in unspecified ankle and joints of unspecified foot Arthralgia of ankle Personal history of other diseases of the digestive system History of gastroesophageal reflux (GERD) Personal history of other diseases of the digestive system History of dumping syndrome Personal history of other endocrine, nutritional and metabolic disease 09/13/2020 History of type 2 diabetes mellitus Presence of coronary angioplasty implant and graft History of coronary artery stent placement Rash and other nonspecific skin eruption 10/12/2019 Rash Unspecified abdominal hernia without obstruction or gangrene Hernia Unspecified abdominal pain 03/20/2021 Abdominal pain, left lateral Surgical History Surgical History Past Surgical History: Procedure Laterality Date OTHER SURGICAL HISTORY 08/10/2019 Arterial stent placement OTHER SURGICAL HISTORY 08/10/2019 Cholecystectomy OTHER SURGICAL HISTORY 08/10/2019 Hernia repair Social History Social History Social History Tobacco Use Smoking status: Never Smokeless tobacco: Never Vaping Use Vaping status: Never Used Substance Use Topics Alcohol use: Never Drug use: Never Family History family history includes Colon cancer in his mother and another family member. Current Medications Current Outpatient Medications Medication Instructions allopurinol (ZYLOPRIM) 100 mg, oral, Daily amLODIPine (NORVASC) 5 mg, oral, Daily before breakfast ascorbic acid (VITAMIN C) 250 mg aspirin 81 mg, Daily atorvastatin (LIPITOR) 40 mg, oral, Daily blood-glucose sensor (FreeStyle [place] 3 Sensor) device Use as directed carvedilol (COREG) 6.25 mg, 2 times daily ciprofloxacin (CIPRO) 500 mg, oral, Daily cyanocobalamin, vitamin B-12, (Vitamin B-12) 1,000 mcg tablet extended release 1 tablet FeroSuL tablet 1 tablet, Every other day flash glucose scanning reader (FreeStyle [place] 2 [place]) [facility] Use as instructed flash glucose sensor kit (FreeStyle [place] 2 Sensor) kit Use as directed FreeStyle [place] 2 Sensor kit 1 each, subcutaneous, As needed, Use as instructed furosemide (Lasix) 40 mg tablet TAKE 1.5 TABLET BY MOUTH EVERY DAY gabapentin (NEURONTIN) 300 mg, oral, 2 times daily lancets 33 gauge misc 2 times daily Lantus U-100 Insulin 60 Units, subcutaneous, Nightly metoprolol tartrate (LOPRESSOR) 50 mg, oral, 2 times daily multivit-minerals/folic acid (CENTRUM ADULTS ORAL) Take by mouth. nitroglycerin (NITROSTAT) 0.4 mg, sublingual, Every 5 min PRN NON FORMULARY Truetrack test In vitro strip; Use as directed to check blood sugar 2 times daily pantoprazole (PROTONIX) 40 mg, oral, 2 times daily pen needle, diabetic (Pen Needle) 32 gauge x /32 needle 1 each, miscellaneous, Daily primidone (MYSOLINE) 50 mg, oral, Nightly spironolactone (Aldactone) 50 mg tablet TAKE 1 TABLET ( 50 MG) BY MOUTH DAILY FOR 30 DAYS. Hold if serum potassium is more than 5.0 spironolactone (ALDACTONE) 25 mg, oral, Daily sucralfate (CARAFATE) 1 g, oral, 3 times daily (morning, midday, late afternoon) vitamins A,C,S-ocrv-[id number] 2,148 mcg-113 mg-45 mg-17.4mg tablet Take by mouth. SUPER VIEW Scheduled Medications OARRS Review I have personally reviewed the OARRS report for Jewel Recio Anastacio. I have considered the risks of abuse, dependence, addiction and diversion. He continues on gabapentin through primary care. Objective BSA: There is no height or weight on file to calculate BSA. There were no vitals taken for this visit. Physical Exam Vitals and nursing note reviewed. Constitutional: Appearance: Normal appearance. He is obese. HENT: Head: Normocephalic and atraumatic. Nose: Nose normal. Mouth/Throat: Mouth: Mucous membranes are moist. Pharynx: Oropharynx is clear. Eyes: General: No scleral icterus. Extraocular Movements: Extraocular movements intact. Conjunctiva/sclera: Conjunctivae normal. Cardiovascular: Rate and Rhythm: Normal rate and regular rhythm. Pulses: Normal pulses. Heart sounds: Normal heart sounds. Pulmonary: Effort: Pulmonary effort is normal. Breath sounds: Decreased breath sounds present. Comments: Wearing continuous Oxygen 2 L Abdominal: General: There is distension. Palpations: Abdomen is soft. Tenderness: There is no abdominal tenderness. Musculoskeletal: General: Swelling present. Normal range of motion. Cervical back: Normal range of motion. Right lower leg: Edema present. Left lower leg: Edema present. Lymphadenopathy: Cervical: No cervical adenopathy. Skin: General: Skin is warm and dry. Coloration: Skin is pale. Findings: Bruising present. Neurological: General: No focal deficit present. Mental Status: He is alert and oriented to person, place, and time. Motor: Weakness present. Psychiatric: Mood and Affect: Mood normal. Behavior: Behavior normal. Thought Content: Thought content normal. Judgment: Judgment normal. Performance Status: Symptomatic Assessment/Plan 1. Pancytopenia. The patient has unusual bone marrow findings. Chromosomal analysis will not be done due to failure of the specimen to grow. 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 He is not responding to erythropoietin. We will increase his dose to 500 mcg every other week. He continues to be at high risk for bleeding and infection with a low ANC and low platelet count. He has had previous GI bleeds. He is currently back on his aspirin per follow-up with Dr. Judge for fear of clotting off his stents. He is off Eliquis. He will get his treatment today with darbepoetin and continue every 14 days. He is not interested in the second ortiz at this time and does not want to be treated more aggressively. We will continue to be supportive. 03/13/25: Reviewed recent labs- WBC 1.0, ANC 0.32, Hemoglobin 7.5, Platelets 56K- -1 unit PRBC's ordered - Immunocompromised Precautions discussed -will proceed with darbepoetin injection every 14 days, and support as needed These include but are not limited to: GERD Arthritis, DJD BPH Coronary artery disease with history of myocardial, status post stent infarction History of dumping syndrome Hyperlipidemia History of skin cancer Obesity Obstructive sleep apnea on CPAP Peripheral arterial disease CKD 3 Diabetes with nephropathy History of cholecystectomy and hernia repair Essential tremor Hypertension Numbness in his fingers felt to be related to cervical disc disease. 3. Rash on his legs. I think this looks more like stasis dermatitis than disseminated zoster. If it were disseminated zoster he would have it on other areas of his body. Plan: Discussed and reviewed medical history Highly encouraged wearing a mask in public, if able would suggest avoid public places at this time, due to his ANC being extremely low at 0.32 Encourage good hand hygiene at this time also Reviewed CBC- hemoglobin is 7.5, Plts 56k-. WBC 1.0, ANC 0.32 Proceed with Darbopoetin Injection today Continue Darbopoetin injection every 14 days with labs prior Ordered fecal occult to be dropped off at time of next injection in 14 days Return to see [facility] in 1 month He knows that he should call in the interim should he have any change in his status, questions or concerns. SOY Paulson Pt had Darbepoetin today- pt set up for blood transfusion 03/14 documented in this encounter [facility] Work Phone: 03-13-2025 Instructions SOY Paulson - 03/13/2025 10:30 AM EDT Discussed and reviewed medical history Labs today- pending results due for Darbepoetin injection today Ordered 1 unit PRBC's Continue on Darbepoetin every 14 days with labs same day Return to see [facility] in 4 weeks documented in this encounter [facility] Work Phone: 02-28-2025 History of Present illness Narrative Subjective Patient ID: Jewel Chaves is a 89 y.o. male who presents for Follow-up (Recently discharged home from [facility]). HPI Review of Systems Objective Physical Exam Assessment/Plan Kathia Man MA 02/28/25 11:09 AM Subjective Jewel Chaves is a 89 y.o. male who presents for Follow-up (Recently discharged home from [facility]). Here for follow up recent hospitalization and ECF stay. He was admitted at from 01/30 -02/03 for acute kidney injury. He then went to [facility] for rehab, he has been home since , has home health coming in now. He is now wearing oxygen when he is out and walking. He had some labs yesterday - they appear stable. Overall he is doing ok, slowly getting some strength back. Objective Visit Vitals BP 128/56 Pulse 77 Physical Exam Vitals reviewed. Constitutional: General: He is not in acute distress. Cardiovascular: Rate and Rhythm: Normal rate and regular rhythm. Heart sounds: No murmur heard. Pulmonary: Effort: Pulmonary effort is normal. No respiratory distress. Breath sounds: Normal breath sounds. Skin: General: Skin is warm and dry. Neurological: General: No focal deficit present. Mental Status: He is alert. Mental status is at baseline. Assessment/Plan Problem List Items Addressed This Visit Other pancytopenia (Multi) Type 2 diabetes mellitus with stage 4 chronic kidney disease, with long-term current use of insulin (Multi) Hypertension Stage 4 chronic kidney disease (Multi) - Primary Thrombocytopenia ([facility]) Acute on chronic anemia Palmira العراقي MD documented in this encounter [facility] Work Phone: 02-28-2025 Instructions Palmira العراقي MD - 02/28/2025 11:20 AM EDT Continue current medications, follow up with specialists as scheduled. Follow up here as scheduled. documented in this encounter [facility] Work Phone: 02-27-2025 Evaluation + Plan note Associated Problem(s): Stage 4 chronic kidney disease (Multi) He will get his lab repeated this afternoon when he goes down to the infusion center I will call him with these results, if his kidney function continues to be stable we will continue with his current regimen I will plan on follow-up in 3 months [facility] Work Phone: 02-27-2025 Evaluation + Plan note Associated Problem(s): Hypertension Blood pressure is well-controlled on amlodipine, carvedilol, spironolactone [facility] Work Phone: 02-27-2025 Miscellaneous Notes Associated Problem(s): Stage 4 chronic kidney disease (Multi) He will get his lab repeated this afternoon when he goes down to the infusion center I will call him with these results, if his kidney function continues to be stable we will continue with his current regimen I will plan on follow-up in 3 months Associated Problem(s): Hypertension Blood pressure is well-controlled on amlodipine, carvedilol, spironolactone documented in this encounter [facility] Work Phone: 02-27-2025 History of Present illness Narrative Subjective Patient ID: Jewel Chaves is a 89 y.o. male who presents for Follow-up. Patient is being seen in follow-up for chronic kidney disease stage IV with recent hospitalization and acute kidney injury Labs reviewed H&H 8.5 and 26.9 Uric acid 8.0 Labs on the day of discharge included Glucose 137, sodium 139, potassium 4.8, chloride 108, bicarb 24 Renal function with a BUN of 69 and creatinine of 2.66 No chemistries repeated since his hospitalization He is returning back to the infusion center and will get his lab work drawn while he is down there He does have some mild lower extremity edema which is unchanged from his baseline His blood pressure is well-controlled He does have frequency of urination and has difficulty controlling his bladder with some incontinence Review of Systems Constitutional: Negative. Respiratory: Negative. Cardiovascular: Positive for leg swelling. Gastrointestinal: Negative. Endocrine: Negative. Genitourinary: Positive for urgency. Musculoskeletal: Negative. Skin: Negative. Neurological: Negative. Psychiatric/Behavioral: Negative. Objective Physical Exam Constitutional: Appearance: Normal appearance. He is obese. HENT: Head: Normocephalic and atraumatic. Mouth/Throat: Mouth: Mucous membranes are moist. Eyes: Extraocular Movements: Extraocular movements intact. Cardiovascular: Rate and Rhythm: Normal rate and regular rhythm. Heart sounds: Normal heart sounds. Pulmonary: Effort: Pulmonary effort is normal. Breath sounds: Normal breath sounds. Abdominal: General: Bowel sounds are normal. Palpations: Abdomen is soft. Musculoskeletal: General: Normal range of motion. Right lower leg: Edema present. Left lower leg: Edema present. Skin: General: Skin is warm and dry. Neurological: Mental Status: He is alert. Psychiatric: Behavior: Behavior normal. Thought Content: Thought content normal. Assessment/Plan Problem List Items Addressed This Visit ICD-10-CM Hypertension - Primary I10 Blood pressure is well-controlled on amlodipine, carvedilol, spironolactone Stage 4 chronic kidney disease (Multi) N18.4 He will get his lab repeated this afternoon when he goes down to the infusion center I will call him with these results, if his kidney function continues to be stable we will continue with his current regimen I will plan on follow-up in 3 months Relevant Orders Basic metabolic panel Follow Up In Nephrology Comprehensive metabolic panel Anemia due to stage 4 chronic kidney disease N18.4, D63.1 Acute renal failure: Likely prerenal: Improving and stable CKD IV with baseline creatinine 2.3-2.8 Pancytopenia Hypertension with blood pressure on low side at this time Diabetic Nephropathy: Diabetes mellitus type 2 on insulin Bilateral lower extremity edema: Stable. History of pulmonary embolism Obesity Obstructive sleep apnea on CPAP machine and compliant Hyperlipidemia History of coronary artery B/L Renal Cyst Hyperuricemia SOY Easley DNP 02/27/25 11:00 AM documented in this encounter [facility] [facility] Work Phone: 02-13-2025 History of Present illness Narrative Patient ID: Jewel Chaves is a 89 y.o. male. Subjective HPI Chief Complaint Chief Complaint Patient presents with Anemia Stage 4 chronic kidney disease History of the Present Illness 08/10/2019. Visit with Dr. Jose J Martin for chronic kidney disease and hypertension. Chief complaint was fatigue and need to lose weight 09/13/2019. The patient has had long-term history of microcytic anemia going back to at least 2018 at which time his white count was 5.2 hemoglobin was 13.8 hematocrit 40.5 and a platelet count of 157,000. His MCV was 105 MCHC was 34. White blood cell differential count showed 66% polys, 17 lymphs, 11 monos and 4 eosinophils. 10/12/2019. Seen by primary care for probable shingles treated with Valtrex with chief complaint of waxing and waning left flank pain radiating up under his ribs, somewhat responsive to exercise.. He had a history of pulmonary embolus and was on Eliquis long-term. 12/26/2019. Seen by Dr. Rick for elevated PSA, BPH and erectile dysfunction. PSA in 2017 was 2.94, in 2018 it was 2.74 and in 2019 it was 4.03. We discussed biopsy and the patient wanted to have this followed and not biopsy. 01/09/2020. Follow-up with Jae Gannon APRN primary care. Referred to Dr. Chopra for colonoscopy and CT scan of the chest was ordered for follow-up of questionable lingular nodule. 01/11/2020. CT scan of the chest showed a stable 6 mm nodular lesion near the fissure in the lingula. 01/13/2020. Seen by Dr. Chopra who noted that the patient had had diarrhea off-and-on since cholecystectomy and had intermittent left-sided pain. He had a history of colon polyps. 02/21/2015. 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 Seen by Dr. Nancy Rios in follow-up. She noted that he had an abnormal CBC with macrocytic indices with a normal B12 level. The patient denies alcohol use. Hemoglobin A1c was 6.2. BUN was 33 creatinine was 1.74. 07/02/2020. Follow-up with Dr. Rick. PSA had come down from 4.03-3.77 11/05/2020 through 11/13/2020. Admitted to the hospital having been brought to the ED by squad after he fell forward on his toilet and was unable to get up. He denied hitting his head or losing consciousness. He blamed it on having back pain and shoulder pain for several weeks. He was febrile with a temperature of 100.9 and hypoxic with pulse ox of 86% on room air. Respirations were 24. He was positive for COVID and was treated with intravenous antibiotics and remdesivir, increased supplemental oxygen. He was able to be discharged to rehabilitation. Repeat CBC showed white count 4.3 with a hemoglobin 12.9 hematocrit 38.8 with an MCV of 102 and a platelet count of 173,000. White blood cell differential count showed minimal absolute lymphocytopenia at 0.6 with the lower limits of normal being 0.8. 12/31/2020. Follow-up with Dr. Rick. PSA was 9.9 in December. Decided to have prostate biopsy done on 01/21/2021. Results showed BPH. 08/07/2021. Follow-up with Dr. Rick. PSA in July was 2.77 02/05/2022. CBC showed white count 4.3 with hemoglobin 11.7 hematocrit 34.4 with an MCV of 107. Platelet count was 153,000. White blood cell differential count was essentially normal. 04/01/2022. CBC showed white count 3.6 with hemoglobin 11.6 hematocrit 34.4 and platelet count 117,000 with a normal white blood cell differential. 04/28/2022. Referred to Dr. Parra because of pancytopenia by Emma Hawkins APRN. CBC showed a white count of 3.9 with hemoglobin 12.3 hematocrit 36.1 and platelet count 129,000 with a normal differential. PSA was 3.26. The patient said that he felt well except for having increased fatigue. He continued on long-term anticoagulation. He was able to carry out his ADLs. He did complain of easy bruising. 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 Dr. Parra felt that there was a large component secondary to his chronic kidney disease. There was no evidence of nutritional deficiency. He checked him for hemolysis and monoclonal gammopathy and ordered an ultrasound for hepatosplenomegaly and testing for hepatitis, HIV and MAURIZIO. He said he would rather observe the patient rather than pursuing a bone marrow biopsy. 05/28/2022. Repeat lab data showed white count 3.9 with hemoglobin 12.3 hematocrit 36.1 and platelet count 129,000. BUN was 36 creatinine was 1.78. He had mild elevation of AST. Retake count was 2.3%. Flow cytometry showed a small clonal B-cell population. Hepatitis B was nonreactive. Hep C testing was negative. Serum protein electrophoresis was normal. Haptoglobin was normal. LDH was normal. He said that the possibility of MDS could not be ruled out. Ultrasound showed fatty liver but no splenomegaly. He plan for EPO level and NGS for myeloid mutation. 07/03/2022. 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 2022. Seen by Dr. Dr. العراقي. Patient was referred to dermatology for several skin lesions. He was referred to neurology because of his tremor that was not improving. She increased his glimepiride. 08/18/2022. CBC showed white count 3.0 with hemoglobin 10.5 hematocrit 31.3 and a platelet count of 106,000 MCV was 111. 08/27/2022. Follow-up with Dr. 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 He was suspicious for MDS. He referred him for a bone marrow biopsy. 10/02/2022. Follow-up with Dr. Parra. Bone marrow biopsy showed low-grade MDS. R IPSS score was low or very low depending on a karyotype which was still pending. We discussed initiating erythropoietin with Aranesp but the patient deferred and the decision was made to monitor him. 11/12/2022. CBC showed white count 3.4 with hemoglobin 10.3 hematocrit 32.2 and a platelet count of 137,000. MCV was 115. White blood cell differential count was normal. 11/14/2022. Follow-up with Dr. Parra. The patient did say that he had following getting out of the shower but did not sustain any injuries. He had been started by Dr. Martin on insulin for his diabetes which was helpful. Patient continued to be active inside his house. He remains on Eliquis. BR-IPSS score is very low. Counts remain stable. 01/30/2023. CBC showed a white count of 2.6 with hemoglobin 8.7 hematocrit 27.1 and a platelet count 97,000. MCV was 115. White blood cell differential count showed that he had an absolute neutrophil count of 1.36. 02/09/2023. CBC showed a white count of 2.5 with a hemoglobin 9.0 hematocrit of 27.7 with a platelet count of 92,000. MCV was 114. 02/16/2023. Follow-up with Elaine Betts APRN. Even though his hemoglobin had dropped to 9 the patient did not want to start his erythropoietin injections. 03/12/2023. CBC showed white count of 2.5 with a hemoglobin of 7.6 hematocrit 23.8 and a platelet count of 101,000. Absolute neutrophil count was 1.17. 03/16/2023 through 03/20/2023. Admitted to the hospital with anemia and generalized weakness black stools dizziness with a hemoglobin of 6.7. His BUN was [address] scan of the abdomen showed no acute process. There were findings consistent with atypical healing of the previous rib fracture with question Paget's disease although it was nonspecific. He was transfused 2 units packed red blood cells. EGD found 3 erosions in the cardia. He was prescribed Carafate. 03/25/2023. Follow-up with Dr. Dr. العراقي after discharge. CBC showed white count 1.9 with hemoglobin 8.6 hematocrit 28.3 and a platelet count of 140,000. Absolute neutrophil count was 1.06. Patient did not tolerate Carafate and stopped it. He was prescribed oral iron twice a day. He had not been prescribed a PPI which was then started. 04/02/2023. CBC showed white count of 1.9 with hemoglobin 7.7 hematocrit 24.8 and a platelet count of 87,000. 04/14/2023. CBC showed a white count of 1.9 with hemoglobin of 8.7 hematocrit 28.1 and platelet count of 89,000. 04/24/2023. Followed up with Dr. Dr. العراقي who reported that he was hospitalized again in [place] for GI bleed. At that time his Eliquis was discontinued and he was changed to Protonix and taken off his baby aspirin. Once again he was started on Carafate but did not tolerate it. 05/16/2023. CBC showed white count of 2.4 with hemoglobin 9.2 hematocrit 27.3 and a platelet count of 110,000. Absolute neutrophil count was 1.36. 05/18/2023. Follow-up with Elaine Betts. The patient had recently had a colonoscopy and had cauterizations he noted that he had dyspnea with exertion but no resting shortness of breath. He was on prednisone at that time. His sugars were in the 300s. He was on insulin. 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 Current level was found to be saturated. Once again the patient was reluctant to start CHRISTIE. 06/15/2023. Follow-up with Elaine Betts. CBC showed white count 1.8 with a hemoglobin 8.9 hematocrit 26.9 and a platelet count of 100,000. Absolute neutrophil count was 0.96. 07/08/2023. CBC showed a white count of 1.8 with hemoglobin 9.5 hematocrit 28.8 and a platelet count of 85,000 with an absolute neutrophil count of 0.99. 07/15/2023. Follow-up with Dr. Rick. PSA has gone down to 1.87. 08/10/2023. Follow-up with Elaine Betts who noted the patient remained on oxygen and CPAP. He says that he is awakening in the middle of the night around 3 to 4:00 in the morning. Sugars have been in the 300s. Neuropathy was unchanged. He had been started on erythropoietin every 3 weeks 09/22/2023. Follow-up with Elaine Betts. No improvement in his hemoglobin. White count had improved to 2.1 platelets were baseline. He had been placed on 40 mg of prednisone and continued on erythropoietin 300 mcg every 3 weeks. 11/03/2023. Follow-up with Elaine Betts. No improvement in hemoglobin. Symptomatically he was doing well. Plan was to increase frequency of his darbepoetin to every 2 weeks. 12/15/2023. Follow-up with Elaine Betts. Now on erythropoietin injections every 2 weeks. There was a discussion concerning repeat bone marrow biopsy with counts stayed low. 01/12/2024. Follow-up with Elaine Betts. No improvement in his hemoglobin. Patient was agreeable to repeat bone marrow biopsy. She also ordered a CAT scan of the chest abdomen and pelvis without contrast. 01/22/2024. CAT scan showed severe coronary artery calcifications. There is evidence of bronchiectasis in the lower lobes increased compared to previous CT scan from 2019. Predominantly groundglass opacities with bibasilar prominence. There is some subpleural sparing of the left upper lobe. There is a 3 mm nodule in the right upper lobe which was unchanged for several years. 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 There is a small fat-containing periumbilical hernia and bilateral inguinal hernias. Spleen size is at the upper limits of normal being 12.7 cm in length slightly increased when compared to study from 2019. Cysts were seen in the kidneys with diffuse cortical atrophy and a 4 mm hyperdense focus in the interpolar region of the right kidney possibly a stone. Prostatism was noted for gland measuring 6.2 cm. 01/28/2024. Seen by Dr. Harp for shortness of breath. He felt the patient had possible chronic interstitial lung disease versus periodic aspiration, hypoxia dyspnea on exertion. Further tests were ordered including high-resolution CT scan, complete pulmonary function testing, simple pulmonary stress test and follow-up. 02/09/2024. Follow-up with Elaine Betts. Erythropoietin injections continued every 2 weeks which the patient was tolerating well. 02/16/2024. Bone marrow biopsy was performed showing a hypercellular bone marrow at 50% with dyserythropoiesis. There are 1% blasts consistent with persistent myeloid neoplasm. Flow cytometry showed a small clonal CD5 negative, CD10 negative B-cell population and a polytypic background. 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 There was a very small abnormal T-cell population that could be incidental. Next generation sequencing showed 2 U2AF 1 variants, 1 of which was negative. The other had been previously seen. The marrow also showed dyserythropoiesis with bilobate forms and forms with irregular nuclear contours as well as blebbing. 02/23/2024. CBC showed white count 1.5 with a hemoglobin of 8.3 hematocrit 25.9 and platelet count of 71,000 with 37% neutrophils, 53 lymphocytes, 4 monos, 4 eosinophils with an absolute neutrophil count of 0.57. 02/24/2024. Return visit with Dr. Harp. He noted that the high-resolution CT scan showed no significant change from the previous CT scan the month before. Pulmonary function testing showed no response to bronchodilator and there was mild restrictive change with some suggestion of airway inflammation. The patient had difficulty doing the test because of persistent coughing. 6-minute walk test showed that the patient was able to maintain saturations at 93% with 2 L of oxygen per minute continuously. The test was terminated because of dyspnea. With his hypoxia on room air it was recommended that he be on oxygen continuously to keep his saturation greater than or equal to 92%. He continued on oxygen with his CPAP at 3 L at nighttime. 03/11/2024. This is my first visit with Mr. Chaves and his family. We went over some of the results of the bone marrow biopsy. I told him that I would have to wait until the chromosomal analysis returned. I also note the possibility of low-grade lymphoma. He may need to have an opinion with malignant hematology at [facility]. Stepdaughter who is here with him and his today is his advocate for maintaining his quality of life. She is an employee at a local nursing facility and is concerned about many clients she has who seem to be getting treated aggressively. 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 He will continue on this treatment for now. He is low counts were discussed and he knows that he is at higher risk for infection and bleeding. He continues on oxygen supplementation continuously. They will return in 2 weeks at which time laboratory tests will be performed. He just had a lesion removed from the dorsum of his right hand at the base of his first and second fingers. Stitches are still in place. It seems to be healing well without any significant bleeding or infection. He was told that it looked benign. 03/14/2024. Follow-up with Dr. Vianney Judge of cardiology who saw him in follow-up of his coronary artery disease with multiple stents having been placed, hypertension, dyslipidemia and previous pulmonary embolus related to COVID-19. She had stopped his Eliquis. 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 She noted that at some point his aspirin had been stopped but given his history of stents this was restarted and he tolerated it well. She said that his blood pressure was well-controlled. She noted blood sugars were between 150-2 50. She noted the patient was supposed to be using oxygen with exertion but the patient was not sure what rate it was supposed to be. She says that she would not stop his aspirin unless his platelets were less than 50,000 with complications of bleeding. She said it was very important to continue aspirin given a 15% chance of in-stent thrombosis with aspirin cessation. She increased her furosemide to 80 mg twice a day because of bilateral lower extremity edema and spironolactone to 25 mg twice daily until symptoms improve and encouraged him to cut back on his salt intake. She was see him again in about 9 months. 03/15/2024. Follow-up with Dr. Adams of ophthalmology who started him on Naphcon-A drops 1 drop 3 times a day in both eyes for excessive tearing 03/16/2024. Followed up with Dr. Robert Mortensen of podiatry who noted decreased pedal pulses 2 out of 4. He had footcare. 03/25/2024. Follow-up with Dr. Harp. Review of his x-rays showed no change. Physical examination showed decreased breath sounds but no inspiratory crackles that were previously heard. 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 He plan to repeat CT scan in July. 03/25/2024. He is here to follow-up on his bone marrow results. I told him that the chromosomal analysis would not be forthcoming before because the specimen failed to grow in culture. 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 We reviewed the fact that he is recommended to have at least 6 months of his erythropoietin before we decide whether or not it is a failure. He is agreeable to this. We will increase his dose of darbepoetin. He knows to be on the look out for any signs of infection or bleeding and to report this if it happens. We reviewed his most recent CBC. We will see him again in 2 weeks with his next injection. 03/31/2024. Follow-up with Dr. Dr. العراقي for his Medicare wellness visit. His magnesium dose was changed to twice daily indefinitely. 04/08/2024. He is here today for his darbepoetin injection. We have increased his dose to 500 mcg every 2 weeks. Will see if this has any effect. Laboratory dated today shows that his sugar is 290 and his sodium is 134. BUN is 46 and creatinine is 2.31. CBC shows white count 1.5 with a hemoglobin 8.1 hematocrit 24.7 and a platelet count of 71,000 which is very much like his most recent CBC. His absolute neutrophil count is 0.57. I talked to him about his current status which he feels is fairly stable. He is off oxygen. He has had no bleeding and no signs of infection. He understands that we have increased his dose of darbepoetin and we will watch his counts. He will report any side effects. He has continued to receive his darbepoetin injections. 05/16/2024. [facility]. He developed a rash on both lower extremities which started a week ago which is an erythematous papular rash. He denied any pain or itching. He did not have any vesicle formation. It is bilateral. He has had a shingles injection. He was told that he had disseminated zoster and was started on valacyclovir a gram twice daily for 7 days. 05/20/2024. Seen by Dr. Dr. العراقي who said that the rash has not gotten any worse and might be a little bit better. She noted that there were no vesicles no open areas no areas of secondary infection. 05/20/2024. He is here to receive his erythropoietin injection and to have a blood count. I told him it is not likely that this is disseminated zoster because it is nowhere else on his body but only on his lower extremities. This could be stasis dermatitis. I do not see any signs of vesicle formation and there never were any. It is mostly on the anterior shins. It is all below the knee. CBC today shows white count 1.4 with hemoglobin 8 hematocrit 25.4 platelet count 67,000 with 37 neutrophils 53 lymphocytes 5 monos 2 eosinophils. He is serum chemistry showed a sugar of 285 BUN of 49 creatinine of 2.67. We told him he needed to keep his hydration status high. He will continue with his injections today. Blood pressure today is 153/64. He has had no bleeding and no infection. He has had no chest pain or pressure. He is able to participate in his usual activities including mowing the yard. He has continued to receive his darbepoetin and has followed up with podiatry for nail and callus care. 07/01/2024. He is here in routine follow-up. He says that he is doing well. He has had no infections or bleeding. He has had no mouth sores. He has had continued swelling in his legs a little bit worse on the left than on the right. Blood sugar was greater than 300 but he admits to dietary indiscretion. Has had no chest pain. His blood pressure was 149/63. He says that his breathing is stable. He is using his oxygen at home at night and when he travels that he does not have it on today. His lab data has shown no sign of improvement so far with white count 1.3, hemoglobin 8.6 hematocrit 27.2 and a platelet count of 69,000. White blood cell differential count shows 38% polys, 50 lymphs, 5 monos, 2 eosinophils. We plan a 6-month trial of this dose of darbepoetin which will extend until September. We will see him again in about a month. 07/06/2024. CT scan of the chest showed mild streaky scarring in the lung bases bilaterally. The previously seen groundglass opacities probably be minimally improved. Calcified pleural plaques are seen without consolidation effusion or pneumothorax. There is no adenopathy seen by CT size criteria. Minimal hepatic steatosis was seen as well as calcified granuloma in the spleen and a somewhat atrophic pancreas. DJD was seen in the spine. 07/07/2024. Seen by Dr. 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 He noted myelodysplasia and that he was being followed for his anemia receiving CHRISTIE. He did not change any of his medications And said that he would see him again in about 6 months 07/12/2024. Follow-up by Dr. Harp at which time he told the patient he could decrease his oxygen to 2 and he would repeat a CT scan in 6 months and see him after that. 07/29/2024. He is here today in routine follow-up. He will get his shot today. Laboratory data shows no improvement. We reviewed that we will follow him for 6 months on this treatment to see if there is any improvement. Mr. Chaves says that he has had no significant bleeding. I see some red spots on the soft palate. His appetite has been good and he has gained weight of 1 pound since last time I saw him about a month ago. He has had no other signs of infection or deterioration in his status. He knows he is at risk for serious infection or bleeding. We will continue on this treatment pathway. He will see him again in a month. Interval Note 08/04/2024. Seen by Dr. 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 BUN was 47 and creatinine was 2.33 with an EGFR of 26. She noted that he did have some mild edema of the left lower leg and was in the habit of wearing compression stockings. He denied any increase in shortness of breath. She said that she wanted to stop his spironolactone which was 25 mg and appeared that it was started for edema. She said that he would check his blood pressure and weights for the next 2 weeks and then have repeat laboratory data. Spironolactone was discontinued. 08/12/2024. Laboratory data showed a BUN of 50 and a creatinine of 2.6, worse than before EGFR was 22. Sugar was 389. On 08/22/2024 she told him to stay off spironolactone and call if he had increasing swelling or shortness of breath. He was to continue weighing himself. 08/26/2024. Repeat laboratory data showed a BUN of 45 and a creatinine of 2.41 with a sugar of 374. He was continued on erythropoietin injections. 09/09/2024. BUN was 44 creatinine was 2.33 and sugar was 430. 09/20/2024. [facility] emergency department visit for tremor. The patient reported that his tremor was worse at night. He denied any history of restless leg syndrome. He said that his upper extremity tremor was relieved by movement. He has a history of previous movement disorder or any other neurologic symptoms. At that time he said that he was taking 20 mg of Lasix twice a day. Aldactone was still on his medication list. BUN is 43 creatinine was 2.45 and sugar was 373. CT of the head showed no evidence of bleeding there was mild to moderate brain parenchymal atrophy and white matter changes. He was referred to neurology. 09/23/2024. BUN was 15 creatinine was 2.60. Sugar was 353. At that time it was documented that he was taking 60 mg of Lasix daily and continuing Aldactone. He did have bilateral pedal edema. He was continued on family preservation officer protein injections. He weighed 229 pounds. 09/26/2024. BUN was 51 and creatinine was 2.64 with a sugar of 285. 10/10/2024. BUN was 44 creatinine was 2.47 with a sugar of 313. 10/11/2024. [facility] ED visit for a rash on his lower extremities. He was taking Lasix 40 mg twice a day and Aldactone daily. Blood pressure was 121/52 and he weighed 230 pounds. There was some mild erythema in his left lower extremity but was not weeping. He was slightly warm to the touch. It was said that this could be early cellulitis and a prescription for Keflex was written. 10/17/2024. He followed up with Dr. Dr. العراقي who said that they could switch antibiotics to doxycycline and recommended a follow-up appointment. He was seen on the following day and continued on doxycycline for mild to moderate erythema of the inner ankle lower leg he was also treated with gabapentin for his essential tremor. 10/24/2024. BUN was 43 creatinine was 2.46 with a sugar of 313. Seen in follow-up by Elaine Betts was continued on Depakote with stable counts. 10/31/2024. Followed up with Dr. Dr. العراقي with leg redness. The patient said that he thought he had the flu. His weight was 226 pounds. Blood pressure was 126/74. Laboratory data 2 days prior to the visit showed that his BUN was 52 and his creatinine was 2.62. Sugar was 151. 11/03/2024. Followed up with Dr. Elke Martin with a decrease in his swelling and improvement in his legs lesions. She documented that he had had 2 falls without lightheadedness or dizziness. 11/07/2024. Laboratory data showed a sugar of 313 BUN of 41 and creatinine of 2.56 with an EGFR of 23. 11/16/2024. Seen by Dr. Mariah Can of [facility] neurology because of his tremors. He mentioned that gabapentin can cause swelling. He was recently discontinued. Symptoms appear to be improved. He noted the patient had already been on primidone. He had complained of chronic numbness of the left thumb and right thumb. 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 He was reluctant to see orthopedic reduction and risks were recommended as well as exercises to maintain strength. He said that he could continue primidone 50 mg p.o. nightly for essential tremor and increase the dose if needed and to avoid caffeine. 11/21/2024. BUN was 47 creatinine was 2.70 with an EGFR of 22. Sugar was 142. 12/05/2024. Laboratory data showed a BUN of 46 creatinine 2.42 with a sugar of 218. Follow-up with Elaine Betts at which time the patient said that he wanted to stay on erythropoietin. Repeat bone marrow was discussed with the patient was reluctant to do that or to see Dr. Anguiano for second opinion. 12/19/2024. Laboratory data showed a BUN of 49 creatinine 2.53 with a sugar of 300. 01/02/2025. BUN was 57 creatinine was 2.86 with a sugar of 284. Followed up with Elaine Betts still not wanting to get another opinion. Discussion was around supportive care and making sure that he understood the dangers of cytopenias. 01/03/2025. Follow-up with Dr. Dr. العراقي. No changes made in his medications. 01/06/2025. CT scan of the chest without contrast showed moderate basilar and subpleural predominant fibrosing interstitial lung disease with architectural distortion in the absence of honeycombing which have been waxing and waning the degree of inflammatory change had decreased over the past year. Densely calcified coronary arteries were seen and a new right retroareolar nodular appearing soft tissue measuring 1.6 cm and could represent asymmetric clinically mass via but this needed to have follow-up. 01/13/2025. Followed up with Dr. Harp. He noted that pulse ox on room air was 90% and on repeat was 96. 01/18/2025. He is here today with his . We wanted to make sure that he understood that his counts were not doing well and that he had potential problems with infections, bleeding and anemia that might cause him to have chest pains or increasing shortness of breath. We talked about the possibility of transfusions if he became more symptomatic. He verbalized understanding. He is not interested in another opinion at this time. He is not interested in being treated more aggressively at this time. He is more interested in going through his medicines and making sure that he needed all of them. We did identify that he is on carvedilol and metoprolol. He is also on sucralfate 3 times a day and pantoprazole 40 mg twice a day. He says that he is not experiencing any heartburn and has not for a while. We went through his medication list and noted what it was for. I encouraged him to talk to primary care about these issues. He has an appointment to see his registrar museum in the upcoming weeks. His blood pressure today 137/67. His most recent BUN and creatinine were 57 and 2.86 which I am sure have something to do with his state of hydration. He currently says that he is taking 1-1/2 of a 40 mg Lasix tablet daily and continues to take Aldactone 25 mg daily. He has prescriptions for both 25 and 50 mg of Aldactone. He has an upcoming appointment to see Elaine Betts in about 2 weeks. 02/13/25: Patient is in office for routine follow-up. Patient was directed to be seen in the emergency room 01/30/25 after reporting weakness/shakiness that lead to him falling. His hemoglobin at the time was 7 g/dL he received 2 units PRBC's. Upon discharge he was sent to SNF for a few days of occupational therapy. He is ambulating with a walker to his appointment. He reports feeling steady on his feet, denies ay weakness today. He has continuous oxygen, however he is not using while in the office, denies any shortness of breath. Continuous oxygen 2-3L nc. today. Denies any bleeding or bruising. Bilateral edema has improved since he started drinking more water. He remains to take lasix 40mg and spirolactone 50mg. He denies any GI or Urinary issues. Occasional productive cough, clear phlegm. He states he feel to bad today. Home BGS 180-240's- PCP recently sent prescribed insulin pens, which is much easier for him to administer. He has home health coming twice weekly. Comorbidities GERD Arthritis, DJD BPH Coronary artery disease with history of myocardial, status post stent infarction History of dumping syndrome Hyperlipidemia History of skin cancer Obesity Obstructive sleep apnea on CPAP Peripheral arterial disease CKD 3 Diabetes with nephropathy History of cholecystectomy and hernia repair Essential tremor Hypertension Numbness in his fingers felt to be related to cervical disc disease. Monitoring Parameters Histories, physical examinations and CBCs with occasional bone marrow biopsies. Review of Systems - Oncology Review of Systems Constitutional: Positive for fatigue. Negative for appetite change and unexpected weight change. HENT: Negative for dental problem, mouth sores, nosebleeds and trouble swallowing. Eyes: Negative for visual disturbance. Respiratory: Positive for shortness of breath (with activity). Negative for cough. Cardiovascular: Positive for leg swelling. Gastrointestinal: Negative for abdominal pain, constipation, diarrhea, nausea and vomiting. Endocrine: Negative for polyuria. Genitourinary: Negative for dysuria, frequency and urgency. Musculoskeletal: Positive for arthralgias and myalgias. Skin: Positive for pallor. Negative for rash. Neurological: Negative for weakness, light-headedness, numbness and headaches. Hematological: Bruises/bleeds easily. Psychiatric/Behavioral: Negative for self-injury, sleep disturbance and suicidal ideas. The patient is not nervous/anxious. Past Medical History Medical History Past Medical History: Diagnosis Date Abnormal levels of other serum enzymes Abnormal liver enzymes Dependence on other enabling machines and devices CPAP (continuous positive airway pressure) dependence Encounter for examination of eyes and vision without abnormal findings Diabetic eye exam Localized edema Bilateral leg edema Old myocardial infarction History of myocardial infarction Other conditions influencing health status 11/09/2019 Uncontrolled diabetes mellitus type 2 without complications Pain in unspecified ankle and joints of unspecified foot Arthralgia of ankle Personal history of other diseases of the digestive system History of gastroesophageal reflux (GERD) Personal history of other diseases of the digestive system History of dumping syndrome Personal history of other endocrine, nutritional and metabolic disease 09/13/2020 History of type 2 diabetes mellitus Presence of coronary angioplasty implant and graft History of coronary artery stent placement Rash and other nonspecific skin eruption 10/12/2019 Rash Unspecified abdominal hernia without obstruction or gangrene Hernia Unspecified abdominal pain 03/20/2021 Abdominal pain, left lateral Surgical History Surgical History Past Surgical History: Procedure Laterality Date OTHER SURGICAL HISTORY 08/10/2019 Arterial stent placement OTHER SURGICAL HISTORY 08/10/2019 Cholecystectomy OTHER SURGICAL HISTORY 08/10/2019 Hernia repair Social History Social History Social History Tobacco Use Smoking status: Never Smokeless tobacco: Never Vaping Use Vaping status: Never Used Substance Use Topics Alcohol use: Never Drug use: Never Family History family history includes Colon cancer in his mother and another family member. Current Medications Current Outpatient Medications Medication Instructions allopurinol (ZYLOPRIM) 100 mg, oral, Daily amLODIPine (NORVASC) 5 mg, oral, Daily before breakfast ascorbic acid (VITAMIN C) 250 mg aspirin 81 mg, Daily atorvastatin (LIPITOR) 40 mg, oral, Daily blood-glucose sensor (FreeStyle [place] 3 Sensor) device Use as directed carvedilol (COREG) 6.25 mg, 2 times daily ciprofloxacin (CIPRO) 500 mg, oral, Daily cyanocobalamin, vitamin B-12, (Vitamin B-12) 1,000 mcg tablet extended release 1 tablet FeroSuL tablet 1 tablet, Every other day flash glucose scanning reader (FreeStyle [place] 2 [place]) [facility] Use as instructed flash glucose sensor kit (FreeStyle [place] 2 Sensor) kit Use as directed FreeStyle [place] 2 Sensor kit 1 each, subcutaneous, As needed, Use as instructed furosemide (Lasix) 40 mg tablet TAKE 1.5 TABLET BY MOUTH EVERY DAY gabapentin (NEURONTIN) 300 mg, oral, 2 times daily lancets 33 gauge misc 2 times daily Lantus U-100 Insulin 60 Units, subcutaneous, Nightly metoprolol tartrate (LOPRESSOR) 50 mg, oral, 2 times daily multivit-minerals/folic acid (CENTRUM ADULTS ORAL) Take by mouth. nitroglycerin (NITROSTAT) 0.4 mg, sublingual, Every 5 min PRN NON FORMULARY Truetrack test In vitro strip; Use as directed to check blood sugar 2 times daily pantoprazole (PROTONIX) 40 mg, oral, 2 times daily pen needle, diabetic (Pen Needle) 32 gauge x 5/32 needle 1 each, miscellaneous, Daily primidone (MYSOLINE) 50 mg, oral, Nightly spironolactone (Aldactone) 50 mg tablet TAKE 1 TABLET ( 50 MG) BY MOUTH DAILY FOR 30 DAYS. Hold if serum potassium is more than 5.0 spironolactone (ALDACTONE) 25 mg, oral, Daily sucralfate (CARAFATE) 1 g, oral, 3 times daily (morning, midday, late afternoon) vitamins A,C,H-wwwp-iauwvq 2,148 mcg-113 mg-45 mg-17.4mg tablet Take by mouth. SUPER VIEW Scheduled Medications OARRS Review I have personally reviewed the OARRS report for Jewel Chaves. I have considered the risks of abuse, dependence, addiction and diversion. He continues on gabapentin through primary care. Objective BSA: There is no height or weight on file to calculate BSA. There were no vitals taken for this visit. Physical Exam Vitals and nursing note reviewed. Constitutional: Appearance: Normal appearance. Comments: Ambulating with a walker today HENT: Head: Normocephalic and atraumatic. Nose: Nose normal. Mouth/Throat: Mouth: Mucous membranes are moist. Pharynx: Oropharynx is clear. Eyes: General: No scleral icterus. Extraocular Movements: Extraocular movements intact. Conjunctiva/sclera: Conjunctivae normal. Cardiovascular: Rate and Rhythm: Normal rate and regular rhythm. Pulses: Normal pulses. Pulmonary: Effort: Pulmonary effort is normal. Breath sounds: Decreased breath sounds present. Comments: Continous home oxygen 2-3 L NC Abdominal: General: There is distension. Palpations: Abdomen is soft. Tenderness: There is no abdominal tenderness. Musculoskeletal: General: Normal range of motion. Cervical back: Normal range of motion. Skin: General: Skin is warm and dry. Findings: Bruising present. Neurological: General: No focal deficit present. Mental Status: He is alert and oriented to person, place, and time. Motor: No weakness. Gait: Gait normal. Psychiatric: Mood and Affect: Mood normal. Behavior: Behavior normal. Thought Content: Thought content normal. Judgment: Judgment normal. Performance Status: Asymptomatic Assessment/Plan 1. Pancytopenia. The patient has unusual bone marrow findings. Chromosomal analysis will not be done due to failure of the specimen to grow. 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 He is not responding to erythropoietin. We will increase his dose to 500 mcg every other week. He continues to be at high risk for bleeding and infection with a low ANC and low platelet count. He has had previous GI bleeds. He is currently back on his aspirin per follow-up with Dr. Judge for fear of clotting off his stents. He is off Eliquis. He will get his treatment today with darbepoetin and continue every 14 days. He is not interested in the second ortiz at this time and does not want to be treated more aggressively. We will continue to be supportive. 02/13/25: Reviewed recent labs- WBC 1.1, ANC 0.32, Hemoglobin 8.5, Platelets 62K - Educated was provided regarding infection precautions and bleeding risks, patient verbalized understanding. We will continue with darbopoetin every 14 days, and support as needed with consideration of transfusions. 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 3. Rash on his legs. I think this looks more like stasis dermatitis than disseminated zoster. If it were disseminated zoster he would have it on other areas of his body. Plan: Discussed and reviewed medical history Highly encouraged wearing a mask in public, if able would suggest avoid public places at this time, due to his ANC being extremely low at 0.32 Encourage good hand hygiene at this time also Reviewed CBC- hemoglobin is 8.5, Plts 62k- Proceed with Darbopoetin Injection today Continue Darbopoetin injection every 14 days with labs prior Ordered fecal occult to be dropped off at time of next injection in 14 days Return to see BUSINESS ANALYTICS ANALYST in 1 month He knows that he should call in the interim should he have any change in his status, questions or concerns. SOY Paulson Pt had injection today Supplies and instructions given to patient for stool collection at home. Pt instructed to drop sample off at hospital lab. Paper order included in lab bag for lab reference 02/27 labs and epoetin injection 5/12 1030 PRECISION THREAD GRINDER OPERATOR- lab draw on arrival 1100 epoetin injection after his OV Call out to Nephrology for appt with them - on a day when ot is here for injection- I will call pt with this chuck Reviewed AVS with patient- patient verbalizes understanding documented in this encounter [facility] Work Phone: 02-13-2025 Instructions Maris Kim RN - 02/13/2025 9:00 AM EDT Discussed and reviewed medical history Highly encouraged wearing a mask in public, if able would suggest avoid public places at this time, due to his ANC being extremely low at 0.32 Encourage good hand hygiene at this time also Reviewed CBC- hemoglobin is 8.5, Plts 62k- Proceed with Darbopoetin Injection today Continue Darbopoetin injection every 14 days with labs prior Ordered fecal occult to be dropped off at time of next injection in 14 days Return to see BUSINESS ANALYTICS ANALYST in 1 month documented in this encounter [facility] Work Phone: 02-03-2025 Nurse Note Discharge Note: 02/03/2025 1527 Discharged via stretcher by [facility] to SNF, paperwork packet sent with transporter, personal belongings taken by transporter, no distress noted, no complaints voiced. Asim SWAN [facility] 02-03-2025 Nurse Note Discharge Note: 02/03/2025 1527 Discharged via stretcher by [facility] to SNF, paperwork packet sent with transporter, personal belongings taken by transporter, no distress noted, no complaints voiced. Asim SWAN Report called to The [facility] Y[facility]. documented in this encounter [facility] Work Phone: 02-03-2025 Nurse Note Report called to The [facility] Ramos [place]. [facility] 02-03-2025 History of Present illness Narrative Physical Therapy Physical Therapy Treatment Patient Name: Jewel Chaves Department: [facility] Room: [address] [place] [address] Today's Date: 02/03/2025 Time Calculation Start Time: 1000 Stop Time: 1040 Time Calculation (min): 40 min Assessment/Plan PT Assessment PT Assessment Results: Decreased strength, Decreased endurance, Decreased mobility Medical Staff Made Aware: Yes End of Session Communication: Bedside nurse Assessment Comment: Pt willing to participate, commode transfers completed CGA and he completed his slef care supervision. End of Session Patient Position: Up in chair, Alarm on PT Plan Inpatient/Swing Bed or Outpatient: Inpatient PT Plan Treatment/Interventions: Bed mobility, Transfer training, Gait training, Stair training, Balance training, Strengthening, Endurance training, Therapeutic exercise, Therapeutic activity, Home exercise program PT Plan: Ongoing PT PT Frequency: 4 times per week PT Discharge Recommendations: Moderate intensity level of continued care Equipment Recommended upon Discharge: Wheeled walker PT Recommended Transfer Status: Assist x1 PT - OK to Discharge: Yes (once medically appropriate and safe DC plan in place) General Visit Information: PT Visit PT Received On: 02/03/25 General Reason for Referral: 89 year old admitted for weakness, falls, anemia needing blood transfusion Referred By: Hang Past Medical History Relevant to Rehab: pancytopenia, possible myelodysplaisa: currently being tx by oncology Family/Caregiver Present: Yes (Daughter) Prior to Session Communication: Bedside nurse Patient Position Received: Up in chair, Alarm on Subjective I think I'm doing way better. Precautions: Objective Pain: Pain Assessment Pain Assessment: 0-10 0-10 (Numeric) Pain Score: 0 - No pain Activity Tolerance: Activity Tolerance Endurance: Tolerates less than 10 min exercise with changes in vital signs Activity Tolerance Comments: increased peroids requierd per fatigue Treatments: Therapeutic Exercise Therapeutic Exercise Performed: Yes Therapeutic Exercise Activity 1: standing hip flexion Therapeutic Exercise Activity 2: standing hip abduction Therapeutic Exercise Activity 3: standing hip adduction Therapeutic Exercise Activity 4: standing HS curls Ambulation/Gait Training 1 Surface 1: Level tile Device 1: Rolling walker Gait Support Devices: Gait belt Assistance 1: Contact guard Quality of Gait 1: Narrow base of support, Decreased step length Comments/Distance (ft) 1: 200' x1 reps Transfers Transfer: Yes Transfer 1 Transfer From 1: Sit to Transfer to 1: Stand Technique 1: Sit to stand Transfer Device 1: Walker Transfer Level of Assistance 1: Contact guard Trials/Comments 1: (multipe attempts required per poor body mechanics) Outcome Measures: [facility] Basic Mobility Turning from your back to your side while in a flat bed without using bedrails: A lot Moving from lying on your back to sitting on the side of a flat bed without using bedrails: A lot Moving to and from bed to chair (including a wheelchair): A little Standing up from a chair using your arms (e.g. wheelchair or bedside chair): A little To walk in hospital room: A little Climbing 3-5 steps with railing: Total Basic Mobility - Total Score: 14 Education Documentation Mobility Training, taught by Priyank Martinez PTA at 02/03/2025 1:49 PM. Learner: Patient Readiness: Acceptance Method: Explanation Response: Verbalizes Understanding Education Comments No comments found. OP EDUCATION: Encounter Problems Encounter Problems (Active) PT Problem PT Goal 1 (Progressing) Start: 02/01/25 Expected End: 02/15/25 Jewel Chaves will be independent with bed mobility for supine to and from sitting EOB without use of rail and bed flat PT Goal 2 (Progressing) Start: 02/01/25 Expected End: 02/15/25 Jewel Chaves will transfer sit to and from stand using least restrictive assistive device mod indep PT Goal 3 (Progressing) Start: 02/01/25 Expected End: 02/15/25 Jewel Chaves will demonstrate good safety awareness with transfers and mobility and with use of assistive device (proper hand placement). PT Goal 4 (Progressing) Start: 02/01/25 Expected End: 02/15/25 Jewel Chaves will ambulate 150 ft with assistive device , level surface, good balance, steady mod Indep Pain - Adult Cosigned by Shayy Anderson, PT at 02/03/2025 1:57 PM EDT Per medical team, patient is medically appropriate for discharge today. Horse Stud Manager to met with patient's daughter to review discharge plan and Medicare IM; Patient in restroom. SW/DSC to send updated notes and final orders to [facility] via [facility] when complete. JESÚS/Bri to complete HENS document. Nursing to confirm transport. - 1500: Transport confirmed for 1515. SNF updated. Plan for patient is to discharge to [facility] at 1515 today. No further Care Transitions needs foreseen. Care Transitions available upon request. RADHA Lucas Jewel Chaves is a 89 y.o. male on day 2 of admission presenting with Acute kidney injury superimposed on chronic kidney disease. Subjective Hemodynamically stable, no acute distress, sitting out of bed to chair, on oxygen via nasal cannula, denies any active complaints. Objective Last Recorded Vitals BP 116/69 (BP Location: Left arm, Patient Position: Sitting) Pulse 65 Temp 36.4 C (97.6 F) (Temporal) Resp 18 Wt 101 kg (223 lb 8.7 oz) SpO2 98% Intake/Output last 3 Shifts: Intake/Output Summary (Last 24 hours) at 02/02/2025 1255 Last data filed at 02/02/2025 0815 Gross per 24 hour Intake 840 ml Output 475 ml Net 365 ml Admission Weight Weight: 102 kg (225 lb) (01/30/25 1504) Daily Weight 01/30/25 : 101 kg (223 lb 8.7 oz) Image Results EEG IMPRESSION Impression This awake and drowsy routine EEG is indicative of a mild diffuse encephalopathy. No epileptiform discharges or lateralizing are seen. A full report will be scanned into the patient's chart at a later time. This report has been interpreted and electronically signed by ECG 12 Lead Normal sinus rhythm Left axis deviation Abnormal ECG When compared with ECG of 16-MAR-2023 14:14, Previous ECG has undetermined rhythm, needs review See ED provider note for full interpretation and clinical correlation Confirmed by Palmira Norman ([id number]) on 02/01/2025 12:19:09 PM Physical Exam General: Well-developed elderly male, in no acute distress HEENT: AT, NC, no JVD, no lymphadenopathy, neck supple Lungs: Clear, no wheezing, no crackles Cardiac: Normal S1-S2, no murmur, no gallop Abdomen: Soft, nontender, no distention, positive bowel sound Extremities: No deformity, bilateral lower extremity pitting edema noted, pulses intact, ROM intact Neurological: Alert awake oriented x3, sensation intact, clear speech Assessment & Plan Acute on chronic anemia Other pancytopenia (Multi) Acute kidney injury superimposed on chronic kidney disease Stage 4 chronic kidney disease (Multi) Type 2 diabetes mellitus with stage 4 chronic kidney disease, with long-term current use of insulin (Multi) CAD (coronary artery disease) Hypertension Mixed hyperlipidemia Prescribed aspirin and atorvastatin as above. Management as above. Interstitial lung disease (Multi) Not currently taking any inhalers, per chart review. Swelling of both lower extremities An 89 y.o. male with PMH of myelodysplasia, CKD 4, hypertension, Type 2 Dm, CAD who presented with tremors, weakness, recurrent falls. Patient was admitted for management of following issues: Recurrent falls: Reports tremors and generalized weakness, can be in the setting of severe anemia, status post 2 units of PRBC transfusion, on fall precaution, was evaluated by PT/OT recommended moderate intensity level on discharge Blood loss anemia secondary to GI bleed: FOBT positive, status post 2 units of PRBC transfusion, monitor CBC, transfuse to keep Hgb >7, GI consulted, continue with Protonix 40 mg twice daily, IV fluid hydration as needed YU/CKD: Nephrology was consulted, improving, meds were adjusted, signed off, monitor renal function, avoid nephrotoxic agent Mild dysplasia/pancytopenia: Patient has outpatient follow-up with heme-onc, currently on darbepoetin every 2 weeks for total of 6 months, continue ferrous sulfate, vitamin C, vitamin B12 Tremors: Pending EEG, there is an echo from 6 months ago, I do not see a repeat 1 HTN, HLD, ILD, CAD: Continue home meds Bilateral lower extremity edema: LAUREN hose, leg elevation Constipation: Lactulose, Colace, MiraLAX VTE prophylaxis: SCDs, no anticoagulation Disposition: PT/OT recommended moderate intensity level on discharge, TCC following for rehab placement CODE STATUS: DNR/DNI I discussed the case with nephrology, from what we understand GI is not planning to do any scope at this moment, we will continue to trend hemoglobin if stable can be discharged to a SNF, working on a safe discharge plan Medhat Gutierrez MD Per medical team, patient is not yet medically appropriate for discharge; will likely require another 24 hours in the hospital. Per bedside nurse, patient is very frustrated at not being discharge ready today. Horse Stud Manager met with patient and patient's at bedside to review discharge plan. SW explained that, if patient chose to leave AMA, patient would forfeit Medicare-covered SNF stay at [facility], which will require third-midnight inpatient stay. Patient continued to express frustration, and phoned patient's step-dtr who works at [facility]. Patient allowed SW to speak with patient's step-daughter on speaker phone. Step-dtr expressed understanding of situation, and reiterated to patient that if patient stays one more night, patient can discharge to [facility] for rehab. Patient did not seem pleased, but acknowledged understanding. SW/DSC to continue to send updated notes to [facility] via [facility] as notes available. Plan for patient is to discharge to [facility] when medically ready, pending qualifying 3-midnight inpatient stay for Medicare approval for SNF, by 02/03. Care Transitions to follow and assist. RADHA Lucas Jewel Chaves is a 89 y.o. male on day 1 of admission presenting with Acute kidney injury superimposed on chronic kidney disease. Subjective Hemodynamically stable, no acute distress, sitting out of bed to chair, on oxygen via nasal cannula, complaining of having no bowel movement, no chest pain or abdominal pain, no nausea or vomiting, no fever or chills Objective Last Recorded Vitals BP 106/53 (BP Location: Left arm, Patient Position: Lying) Pulse 65 Temp 36.1 C (97 F) (Temporal) Resp 18 Wt 101 kg (223 lb 8.7 oz) SpO2 94% Intake/Output last 3 Shifts: Intake/Output Summary (Last 24 hours) at 02/01/2025 1248 Last data filed at 02/01/2025 0848 Gross per 24 hour Intake 240 ml Output -- Net 240 ml Admission Weight Weight: 102 kg (225 lb) (01/30/25 1504) Daily Weight 01/30/25 : 101 kg (223 lb 8.7 oz) Image Results ECG 12 Lead Normal sinus rhythm Left axis deviation Abnormal ECG When compared with ECG of 16-MAR-2023 14:14, Previous ECG has undetermined rhythm, needs review See ED provider note for full interpretation and clinical correlation Confirmed by Palmira Norman ([id number]) on 02/01/2025 12:19:09 PM Physical Exam General: Well-developed elderly male, in no acute distress HEENT: AT, NC, no JVD, no lymphadenopathy, neck supple Lungs: Clear, no wheezing, no crackles Cardiac: Normal S1-S2, no murmur, no gallop Abdomen: Soft, nontender, no distention, positive bowel sound Extremities: No deformity, bilateral lower extremity pitting edema noted, pulses intact, ROM intact Neurological: Alert awake oriented x3, sensation intact, clear speech Assessment & Plan Acute on chronic anemia Other pancytopenia (Multi) Acute kidney injury superimposed on chronic kidney disease Stage 4 chronic kidney disease (Multi) Type 2 diabetes mellitus with stage 4 chronic kidney disease, with long-term current use of insulin (Multi) CAD (coronary artery disease) Hypertension Mixed hyperlipidemia Interstitial lung disease (Multi) Swelling of both lower extremities An 89 y.o. male with PMH of myelodysplasia, CKD 4, hypertension, Type 2 Dm, CAD who presented with tremors, weakness, recurrent falls. Patient was admitted for management of following issues: Recurrent falls: Reports tremors and generalized weakness, can be in the setting of severe anemia, status post 2 units of PRBC transfusion, on fall precaution, was evaluated by PT/OT recommended moderate intensity level on discharge Blood loss anemia secondary to GI bleed: FOBT positive, status post 2 units of PRBC transfusion, monitor CBC, transfuse to keep Hgb >7, GI consulted, continue with Protonix 40 mg twice daily, IV fluid hydration as needed YU/CKD: Nephrology was consulted, improving, meds were adjusted, signed off, monitor renal function, avoid nephrotoxic agent Mild dysplasia/pancytopenia: Patient has outpatient follow-up with heme-onc, currently on darbepoetin every 2 weeks for total of 6 months, continue ferrous sulfate, vitamin C, vitamin B12 Tremors: Pending EEG, echo pending was resumed with a lower dose due to YU, fall precaution HTN, HLD, ILD, CAD: Continue home meds Bilateral lower extremity edema: LAUREN hose, leg elevation Constipation: Lactulose, Colace, MiraLAX VTE prophylaxis: SCDs, no anticoagulation Disposition: PT/OT recommended moderate intensity level on discharge, TCC following for rehab placement CODE STATUS: DNR/DNI Radha Tam MD Per medical team, patient is not yet medically appropriate for discharge; Patient awaits GI consult and will likely require another 48 hours in the hospital. Horse Stud Manager/DSC to continue to send updated notes to [facility] via [facility] as notes available. Plan for patient is to discharge to [facility] when medically ready, pending qualifying 3-midnight inpatient stay for Medicare approval for SNF, by 02/03. Care Transitions to follow and assist. RADHA Lucas Jewel Chaves is a 89 y.o. male on day 1 of admission presenting with Acute kidney injury superimposed on chronic kidney disease. Subjective Patient seen and examined at the bedside He is sitting comfortably in the bedside chair He states he is feeling well and has no major complaints at this time Plan is to go to [facility] for rehab Objective Vitals 24HR Heart Rate: [65-67] Temp: [35.8 C (96.4 F)-36.1 C (97 F)] Resp: [18] BP: (103-106)/(53-56) SpO2: [94 %-98 %] Intake/Output last 3 Shifts: Intake/Output Summary (Last 24 hours) at 02/01/2025 1000 Last data filed at 02/01/2025 0848 Gross per 24 hour Intake 240 ml Output -- Net 240 ml Physical Exam Constitutional: Appearance: Normal appearance. He is obese. HENT: Head: Normocephalic and atraumatic. Right Ear: External ear normal. Left Ear: External ear normal. Nose: Nose normal. Mouth/Throat: Mouth: Mucous membranes are moist. Pharynx: Oropharynx is clear. Eyes: Extraocular Movements: Extraocular movements intact. Conjunctiva/sclera: Conjunctivae normal. Pupils: Pupils are equal, round, and reactive to light. Cardiovascular: Rate and Rhythm: Normal rate and regular rhythm. Pulmonary: Effort: Pulmonary effort is normal. Breath sounds: Normal breath sounds. Abdominal: General: Abdomen is flat. Palpations: Abdomen is soft. Musculoskeletal: General: Swelling present. Right lower leg: Edema present. Left lower leg: Edema present. Skin: General: Skin is warm and dry. Neurological: General: No focal deficit present. Mental Status: He is alert and oriented to person, place, and time. Psychiatric: Mood and Affect: Mood normal. Behavior: Behavior normal. Scheduled medications allopurinol, 100 mg, oral, Daily ascorbic acid, 250 mg, oral, Daily aspirin, 81 mg, oral, Daily atorvastatin, 40 mg, oral, Daily carvedilol, 6.25 mg, oral, BID cyanocobalamin, 1,000 mcg, oral, Daily ferrous sulfate, 1 tablet, oral, Every other day insulin glargine, 60 Units, subcutaneous, q24h insulin lispro, 0-10 Units, subcutaneous, TID AC oxygen, , inhalation, Continuous - Inhalation pantoprazole, 40 mg, intravenous, BID polyethylene glycol, 17 g, oral, Daily primidone, 50 mg, oral, Nightly sucralfate, 1 g, oral, TID Continuous medications PRN medications PRN medications: acetaminophen OR acetaminophen OR acetaminophen, dextrose, dextrose, glucagon, glucagon, melatonin, ondansetron ODT OR ondansetron Relevant Results Assessment/Plan Assessment & Plan Acute kidney injury superimposed on chronic kidney disease Other pancytopenia (Multi) Benign prostatic hyperplasia with urinary obstruction and other lower urinary tract symptoms CAD (coronary artery disease) Type 2 diabetes mellitus with stage 4 chronic kidney disease, with long-term current use of insulin (Multi) Hypertension Mixed hyperlipidemia Stage 4 chronic kidney disease (Multi) Peripheral vascular disease, 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[facility]) Interstitial lung disease (Multi) Acute on chronic anemia Swelling of both lower extremities Acute renal failure: Likely prerenal: Improving and stable CKD IV with baseline creatinine 2.3-2.8 Pancytopenia Hypertension with blood pressure on low side at this time Diabetic Nephropathy: Diabetes mellitus type 2 on insulin Bilateral lower extremity edema: Stable. History of pulmonary embolism Obesity Obstructive sleep apnea on CPAP machine and compliant Hyperlipidemia History of coronary artery B/L Renal Cyst Hyperuricemia Plan: At this time he is stable from the renal standpoint renal function is actually improving a little bit His blood pressure is actually running a little on the low side still off of antihypertensive medications I would continue him off of these medications at this time His volume status is stable at this time so no need currently for diuretics I would continue his supportive measures as he is on I did discuss with him that he has multiple medical comorbidities that at this time do not have a cure I have consulted palliative care I also discussed this briefly with him When rehab has been set up can be discharged at any time from my standpoint Please call with any further issues or needs Jose J Martin DO Occupational Therapy OT Treatment Patient Name: Jewel Chaves Department: [facility] Room: [address] [place] [address] Today's Date: 02/01/2025 Time Calculation Start Time: 0735 Stop Time: 0750 Time Calculation (min): 15 min Assessment: OT Assessment: pt with improvements in body jerking during functional tasks today. noted small tremors. pt able to stand unsupported during ADL with improvement in progress all goals. Cont with current OT POC Prognosis: Good Barriers to Discharge Home: Caregiver assistance, Physical needs Caregiver Assistance: Caregiver assistance needed per identified barriers - however, level of patient's required assistance exceeds assistance available at home Physical Needs: 24hr mobility assistance needed, Intermittent ADL assistance needed, High falls risk due to function or environment Evaluation/Treatment Tolerance: Patient tolerated treatment well Medical Staff Made Aware: Yes End of Session Communication: Bedside nurse End of Session Patient Position: Alarm on, Up in chair (call light in reach) Prognosis: Good Evaluation/Treatment Tolerance: Patient tolerated treatment well Medical Staff Made Aware: Yes Plan: Treatment Interventions: ADL retraining, Functional transfer training, Endurance training, Equipment evaluation/education, Neuromuscular reeducation, Compensatory technique education OT Frequency: 3 times per week OT Discharge Recommendations: Moderate intensity level of continued care OT Recommended Transfer Status: Assist of 1 OT - OK to Discharge: Yes (once medically stable) Treatment Interventions: ADL retraining, Functional transfer training, Endurance training, Equipment evaluation/education, Neuromuscular reeducation, Compensatory technique education Subjective Previous Visit Info: OT Last Visit OT Received On: 02/01/25 General: General Reason for Referral: 89 year old admitted for weakness, falls, anemia needing blood transfusion. Referred By: Hang Past Medical History Relevant to Rehab: pancytopenia, possible myelodysplaisa: currently being tx by oncology Family/Caregiver Present: No Prior to Session Communication: Bedside nurse Patient Position Received: Up in bathroom General Comment: patient agreeable to assessment; states he feels better today and is jerking less; states he is going to go to [facility] for therapy Precautions: Medical Precautions: Fall precautions, Oxygen therapy device and L/min (3 lpm) Date/Time Vitals Session Patient Position Pulse Resp SpO2 BP MAP (mmHg) 02/01/25 0730 -- -- 65 -- 97 % 106/53 71 02/01/25 0853 -- -- -- -- 94 % -- -- Vital Signs Comment: no concerns Pain: Pain Assessment Pain Assessment: 0-10 0-10 (Numeric) Pain Score: 0 - No pain Objective Cognition: Cognition Orientation Level: Oriented X4 Safety/Judgement: Exceptions to WFL Novel Situations: Moderate Activities of Daily Living: Toileting Toileting Level of Assistance: Minimum assistance Where Assessed: Toilet Toileting Comments: pt able to tolerate standing to wash hands at sink today. unsupported stand much improved compared to yesterday. pt noted with some small tremors but no large jerking movements. pt wants to rest prior to his breakfast arriving. Bed Mobility/Transfers: Transfer 1 Technique 1: Sit to stand, Stand to sit Transfer Device 1: Walker, Gait belt Transfer Level of Assistance 1: Contact guard, Moderate verbal cues Trials/Comments 1: hand placement Functional Mobility: Functional Mobility Functional Mobility Performed: Yes Functional Mobility 1 Surface 1: Level tile Device 1: Rolling walker Functional Mobility Support Devices: Gait belt Assistance 1: Contact guard, Moderate verbal cues Comments 1: reminders on safety with FWW Outcome Measures:[facility] Daily Activity Putting on and taking off regular lower body clothing: A lot Bathing (including washing, rinsing, drying): A lot Putting on and taking off regular upper body clothing: A little Toileting, which includes using toilet, bedpan or urinal: A lot Taking care of personal grooming such as brushing teeth: A little Eating Meals: None Daily Activity - Total Score: 16 Education Documentation Body Mechanics, taught by Jing Martinez OT at 02/01/2025 9:08 AM. Learner: Patient Readiness: Acceptance Method: Explanation, Demonstration Response: Needs Reinforcement, Demonstrated Understanding, Verbalizes Understanding Comment: safety with FWW during ADLs Precautions, taught by Jing Martinez OT at 02/01/2025 9:08 AM. Learner: Patient Readiness: Acceptance Method: Explanation, Demonstration Response: Needs Reinforcement, Demonstrated Understanding, Verbalizes Understanding Comment: safety with FWW during ADLs ADL Training, taught by Jing Martinez OT at 02/01/2025 9:08 AM. Learner: Patient Readiness: Acceptance Method: Explanation, Demonstration Response: Needs Reinforcement, Demonstrated Understanding, Verbalizes Understanding Comment: safety with FWW during ADLs Body Mechanics, taught by Jing Martinez OT at 01/31/2025 12:44 PM. Learner: Patient Readiness: Acceptance Method: Explanation, Demonstration Response: Demonstrated Understanding, Needs Reinforcement Comment: safety and correct use of FWW during ADL Precautions, taught by Jing Martinez OT at 01/31/2025 12:44 PM. Learner: Patient Readiness: Acceptance Method: Explanation, Demonstration Response: Demonstrated Understanding, Needs Reinforcement Comment: safety and correct use of FWW during ADL ADL Training, taught by Jing Martinez OT at 01/31/2025 12:44 PM. Learner: Patient Readiness: Acceptance Method: Explanation, Demonstration Response: Demonstrated Understanding, Needs Reinforcement Comment: safety and correct use of FWW during ADL Education Comments No comments found. OP EDUCATION: Goals: Encounter Problems Encounter Problems (Active) ADLs Patient will perform UB and LB bathing with contact guard assist level of assistance. (Progressing) Start: 01/31/25 Expected End: 02/14/25 Patient with complete lower body dressing with contact guard assist level of assistance (Progressing) Start: 01/31/25 Expected End: 02/14/25 Patient will complete toileting including hygiene clothing management/hygiene with contact guard assist level of assistance. (Progressing) Start: 01/31/25 Expected End: 02/14/25 BALANCE Pt will maintain dynamic standing balance during ADL task with contact guard assist level of assistance in order to demonstrate decreased risk of falling and improved postural control. (Progressing) Start: 01/31/25 Expected End: 02/14/25 Physical Therapy Physical Therapy Evaluation Patient Name: Jewel Chaves Today's Date: 02/01/2025 Time Calculation Start Time: 737 Stop Time: 751 Time Calculation (min): 14 min Assessment/Plan Skilled PT intervention is indicated due to patient presents with deficits in bed mobility, transfers, gait, stair negotiation, strength, activity tolerance, and safety awareness. Patient globally weak and shaking with mobility. Patient is indep with mobility and no device at baseline and is currently needing to use FWW for ambulation. Recommend continued physical therapy intervention at a moderate intensity to improve strength, balance, mobility and reduce fall risk. Continue ambulation with FWW. PT Assessment PT Assessment Results: Decreased strength, Decreased endurance, Impaired balance, Decreased mobility, Decreased safety awareness, Obesity Rehab Prognosis: Good Barriers to Discharge Home: Caregiver assistance, Physical needs Caregiver Assistance: Caregiver assistance needed per identified barriers - however, level of patient's required assistance exceeds assistance available at home Physical Needs: Stair navigation into home limited by function/safety, Ambulating household distances limited by function/safety, 24hr mobility assistance needed, 24hr ADL assistance needed, High falls risk due to function or environment Evaluation/Treatment Tolerance: Patient tolerated treatment well End of Session Communication: Bedside nurse (communication on white board) End of Session Patient Position: Alarm on, Up in chair (call light in reach) IP OR SWING BED PT PLAN Inpatient or Swing Bed: Inpatient PT Plan Treatment/Interventions: Bed mobility, Transfer training, Gait training, Stair training, Balance training, Strengthening, Endurance training, Therapeutic exercise, Therapeutic activity, Home exercise program PT Plan: Ongoing PT PT Frequency: 4 times per week PT Discharge Recommendations: Moderate intensity level of continued care Equipment Recommended upon Discharge: Wheeled walker PT Recommended Transfer Status: Assist x1 PT - OK to Discharge: Yes (once medically appropriate and safe DC plan in place) Subjective Current Problem: Patient Active Problem List Diagnosis Acid reflux Allergic rhinitis, seasonal Other pancytopenia (Multi) Arthritis Degenerative joint disease Benign prostatic hyperplasia with urinary obstruction and other lower urinary tract symptoms CAD (coronary artery disease) Degenerative cervical spinal stenosis 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, with long-term current use of insulin (Multi) Elevated PSA History of skin cancer Hypertension Mixed hyperlipidemia Neutropenia DWAIN on CPAP Pulmonary nodule S/P coronary artery stent placement Stage 4 chronic kidney disease (Multi) Thrombocytopenia (CMS-HCC) Tremor, essential Class 2 severe obesity with serious comorbidity and body mass index (BMI) of 36.0 to 36.9 in adult Peripheral vascular disease, 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CMS-HCC) Anemia due to stage 4 chronic kidney disease Interstitial lung disease (Multi) Acute kidney injury superimposed on chronic kidney disease Acute on chronic anemia Swelling of both lower extremities General Visit Information: General Reason for Referral: 89 year old admitted for weakness, falls, anemia needing blood transfusion Referred By: Hang Past Medical History Relevant to Rehab: pancytopenia, possible myelodysplaisa: currently being tx by oncology Family/Caregiver Present: No Co-Treatment: OT Co-Treatment Reason: to maximize patient safety with mobility while addressing discipline-specific goals Prior to Session Communication: Bedside nurse Patient Position Received: Up in bathroom (sitting on toilet) General Comment: patient agreeable to assessment; states he feels better today and is jerking less; states he is going to go to [facility] for therapy Home Living: Home Living Type of Home: House Lives With: Spouse Home Adaptive Equipment: Walker rolling or standard Home Layout: Two level, Able to live on main level with bedroom/bathroom Home Access: Stairs to enter with rails Entrance Stairs-Number of Steps: 2 Bathroom Shower/Tub: Walk-in shower Bathroom Equipment: Grab bars in shower Home Living Comments: sleeps in regular bed Prior Level of Function: Prior Function Per Pt/Caregiver Report ADL Assistance: Independent Homemaking Assistance: Independent Ambulatory Assistance: Independent (typically no device but has been using FWW since Thursday due to B legs jerking) Precautions: Precautions Medical Precautions: Fall precautions, Oxygen therapy device and L/min (3L) Vital Signs: Vital Signs Vital Signs Comment: no concerns Objective Pain: Pain Assessment Pain Assessment: 0-10 0-10 (Numeric) Pain Score: 0 - No pain Cognition: Cognition Orientation Level: Oriented X4 Safety/Judgement: Exceptions to WFL General Assessments: Activity Tolerance Endurance: Endurance does not limit participation in activity Strength Strength Comments: LEs grossly >/=4-/5 Postural Control Postural Control: Within Functional Limits Static Sitting Balance Static Sitting-Balance Support: Feet supported, Bilateral upper extremity supported Static Sitting-Level of Assistance: Independent Dynamic Sitting Balance Dynamic Sitting-Balance Support: Feet supported Dynamic Sitting-Level of Assistance: Close supervision Dynamic Sitting-Balance: Forward lean Static Standing Balance Static Standing-Balance Support: Bilateral upper extremity supported Static Standing-Level of Assistance: Contact guard Static Standing-Comment/Number of Minutes: FWW Dynamic Standing Balance Dynamic Standing-Balance Support: Bilateral upper extremity supported Dynamic Standing-Level of Assistance: Contact guard Dynamic Standing-Balance: Turning Dynamic Standing-Comments: FWW Functional Assessments: Bed Mobility Bed Mobility: No Transfers Transfer: Yes Transfer 1 Technique 1: Sit to stand, Stand to sit Transfer Device 1: Gait belt (FWW) Transfer Level of Assistance 1: Contact guard, Close supervision, Moderate verbal cues Trials/Comments 1: cues for technique, hand placement, safety with transfers Ambulation/Gait Training Ambulation/Gait Training Performed: Yes Ambulation/Gait Training 1 Surface 1: Level tile Device 1: Rolling walker Gait Support Devices: Gait belt Assistance 1: Contact guard, Minimal verbal cues Quality of Gait 1: Decreased step length, Diminished heel strike Comments/Distance (ft) 1: cues to keep walker ahead of him correct distance, 105', mild shaking in global body during ambulation Outcome Measures: [facility] Basic Mobility Turning from your back to your side while in a flat bed without using bedrails: A lot Moving from lying on your back to sitting on the side of a flat bed without using bedrails: A lot Moving to and from bed to chair (including a wheelchair): A little Standing up from a chair using your arms (e.g. wheelchair or bedside chair): A little To walk in hospital room: A little Climbing 3-5 steps with railing: Total Basic Mobility - Total Score: 14 Goals: Encounter Problems Encounter Problems (Active) PT Problem PT Goal 1 Start: 02/01/25 Expected End: 02/15/25 Jewel Chaves will be independent with bed mobility for supine to and from sitting EOB without use of rail and bed flat PT Goal 2 Start: 02/01/25 Expected End: 02/15/25 Jewel Chaves will transfer sit to and from stand using least restrictive assistive device mod indep PT Goal 3 Start: 02/01/25 Expected End: 02/15/25 Jewel Chaves will demonstrate good safety awareness with transfers and mobility and with use of assistive device (proper hand placement). PT Goal 4 Start: 02/01/25 Expected End: 02/15/25 Jewel Chaves will ambulate 150 ft with assistive device , level surface, good balance, steady mod Indep Pain - Adult Education Documentation Mobility Training, taught by Velma Casarez PT at 02/01/2025 8:49 AM. Learner: Patient Readiness: Acceptance Method: Explanation Response: Verbalizes Understanding, Demonstrated Understanding, Needs Reinforcement Comment: safety with transfers, hand placement, use of FWW Education Comments No comments found. Jewel Chaves is a 89 y.o. male on day 0 of admission presenting with Acute kidney injury superimposed on chronic kidney disease. Subjective No events over night. Reports no abdominal pain, no nausea. ( is at his bedside). No rectal bleeding, no melena. Objective Last Recorded Vitals BP 105/56 Pulse 67 Temp 35.8 C (96.4 F) (Temporal) Resp 20 Wt 101 kg (223 lb 8.7 oz) SpO2 98% Intake/Output last 3 Shifts: Intake/Output Summary (Last 24 hours) at 01/31/2025 1630 Last data filed at 01/31/2025 0700 Gross per 24 hour Intake 672.92 ml Output 925 ml Net -252.08 ml Admission Weight Weight: 102 kg (225 lb) (01/30/25 1504) Daily Weight 01/30/25 : 101 kg (223 lb 8.7 oz) Image Results Vitals: 01/31/25 1500 BP: 105/56 Pulse: 67 Resp: Temp: 35.8 C (96.4 F) SpO2: 98% Physical Exam Constitutional: Comments: Elderly gentleman, looks comfortable at rest on supplemental oxygen, HENT: Head: Normocephalic. Nose: Nose normal. Mouth/Throat: Mouth: Mucous membranes are moist. Eyes: Pupils: Pupils are equal, round, and reactive to light. Cardiovascular: Rate and Rhythm: Normal rate and regular rhythm. Heart sounds: Normal heart sounds. Pulmonary: Effort: No respiratory distress. Breath sounds: Normal breath sounds. No wheezing. Abdominal: General: There is no distension. Palpations: Abdomen is soft. Tenderness: There is no abdominal tenderness. Musculoskeletal: General: Normal range of motion. Cervical back: Normal range of motion. Skin: General: Skin is warm. Neurological: General: No focal deficit present. Mental Status: He is alert and oriented to person, place, and time. Psychiatric: Mood and Affect: Mood normal. Relevant Results Scheduled medications allopurinol, 100 mg, oral, Daily amLODIPine, 5 mg, oral, Daily before breakfast ascorbic acid, 250 mg, oral, Daily aspirin, 81 mg, oral, Daily atorvastatin, 40 mg, oral, Daily carvedilol, 6.25 mg, oral, BID cyanocobalamin, 1,000 mcg, oral, Daily [START ON 02/01/2025] ferrous sulfate, 1 tablet, oral, Every other day insulin glargine, 60 Units, subcutaneous, q24h insulin lispro, 0-10 Units, subcutaneous, TID AC metoprolol tartrate, 50 mg, oral, BID oxygen, , inhalation, Continuous - Inhalation pantoprazole, 40 mg, intravenous, BID polyethylene glycol, 17 g, oral, Daily primidone, 50 mg, oral, Nightly sucralfate, 1 g, oral, TID Continuous medications PRN medications PRN medications: acetaminophen OR acetaminophen OR acetaminophen, dextrose, dextrose, glucagon, glucagon, melatonin, ondansetron ODT OR ondansetron Results for orders placed or performed during the hospital encounter of 01/30/25 (from the past 24 hours) Troponin, High Sensitivity, 1 Hour Result Value Ref Range Troponin I, High Sensitivity 11 0 - 20 ng/L Urinalysis with Reflex Culture and Microscopic Result Value Ref Range Color, Urine Light-Yellow Light-Yellow, Yellow, Dark-Yellow Appearance, Urine Clear Clear Specific [place], Urine 1.010 1.005 - 1.035 pH, Urine 6.0 5.0, 5.5, 6.0, 6.5, 7.0, 7.5, 8.0 Protein, Urine NEGATIVE NEGATIVE, 10 (TRACE), 20 (TRACE) mg/dL Glucose, Urine Normal Normal mg/dL Blood, Urine NEGATIVE NEGATIVE mg/dL Ketones, Urine NEGATIVE NEGATIVE mg/dL Bilirubin, Urine NEGATIVE NEGATIVE mg/dL Urobilinogen, Urine Normal Normal mg/dL Nitrite, Urine NEGATIVE NEGATIVE Leukocyte Esterase, Urine NEGATIVE NEGATIVE POCT GLUCOSE Result Value Ref Range POCT Glucose 156 (H) 74 - 99 mg/dL Comprehensive metabolic panel Result Value Ref Range Glucose 139 (H) 74 - 99 mg/dL Sodium 138 136 - 145 mmol/L Potassium 4.4 3.5 - 5.3 mmol/L Chloride 105 98 - 107 mmol/L Bicarbonate 24 21 - 32 mmol/L Anion Gap 13 10 - 20 mmol/L Urea Nitrogen 84 (H) 6 - 23 mg/dL Creatinine 3.12 (H) 0.50 - 1.30 mg/dL eGFR 18 (L) >60 mL/min/1.73m*2 Calcium 8.9 8.6 - 10.3 mg/dL Albumin 3.7 3.4 - 5.0 g/dL Alkaline Phosphatase 58 33 - 136 U/L Total Protein 6.0 (L) 6.4 - 8.2 g/dL AST 30 9 - 39 U/L Bilirubin, Total 1.7 (H) 0.0 - 1.2 mg/dL ALT 17 10 - 52 U/L Hemoglobin A1C Result Value Ref Range Hemoglobin A1C 8.0 (H) See comment % Estimated Average Glucose 183 Not Established mg/dL CBC Result Value Ref Range WBC 1.2 (L) 4.4 - 11.3 x10*3/uL nRBC 0.0 0.0 - 0.0 /100 WBCs RBC 2.52 (L) 4.50 - 5.90 x10*6/uL Hemoglobin 8.2 (L) 13.5 - 17.5 g/dL Hematocrit 24.9 (L) 41.0 - 52.0 % MCV 99 80 - 100 fL MCH 32.5 26.0 - 34.0 pg MCHC 32.9 32.0 - 36.0 g/dL RDW 23.1 (H) 11.5 - 14.5 % Platelets 52 (L) 150 - 450 x10*3/uL POCT GLUCOSE Result Value Ref Range POCT Glucose 141 (H) 74 - 99 mg/dL POCT GLUCOSE Result Value Ref Range POCT Glucose 329 (H) 74 - 99 mg/dL *Note: Due to a large number of results and/or encounters for the requested time period, some results have not been displayed. A complete set of results can be found in Results Review. Assessment/Plan 89 y.o. male with PMH of myelodysplasia, CKD 4, hypertension, Type 2 Dm, CAD who is presenting to [facility] ED with recurrent episodes of tremors and weakness with subsequent fall in the setting of acute on chronic anemia. Recurrent falls: Presents following 2 falls at home Reports shakiness and generalized weakness; initial evaluation remarkable for hemodynamic stability with acute on chronic anemia (admission hemoglobin 7 g/dL, baseline 8-8.5 g/dL). Darker than usual stools, but otherwise no evident signs/symptoms of bleeding. Follow-up fecal occult blood test. S/p 2 units of PRBC transfusion, HB improved to 8.2, No h/o external bleeding, pantoprazole IV twice daily. Continue ferrous sulfate. 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 Follows with Dr. Prado outpatient. Currently receiving darbepoetin every 2 weeks for total of 6 months; declined initiation of chemotherapy last week. Currently pancytopenic, with Hgb below baseline as above. Continue ferrous sulfate, vitamin C, vitamin B12. Follow up with Hematology as out patient, Acute kidney injury superimposed on chronic kidney disease Admission creatinine 3.5 mg/dL (baseline appears to be 2.5 mg/dL). Follows with nephrology outpatient. Nephrology consulted, for further evaluation/recommendations. Avoid nephrotoxic medications. Reduce gabapentin dose; hold furosemide; SCDs for DVT Ppx. Continue ferrous sulfate as above. Shakiness: PT reported jerks while walking, Suspect due to gabapentin ( on 300 mg TID at home) Check EEG, Hold Gabapentin, Start gabapentin Low dose 200 mg at bedtime, after improvement in jerks, H/o Type 2 diabetes mellitus: with stage 4 chronic kidney disease, with long-term current use of insulin (Multi) Last A1c 10% (10/2024). On Lantus 60u nightly. Continue home Lantus. Fasting sugar 141 mg, Add moderate dose sliding scale with meals. H/o CAD (coronary artery disease) Status-post PCI x 4 (2008). On aspirin 81 mg, atorvastatin 40 mg, metoprolol 50 mg twice daily. Continue ASA, atorvastatin, and metoprolol. H/o Hypertension On amlodipine 5 mg daily, spironolactone 25 mg daily, and carvedilol 6.25 mg twice daily. Continue home antihypertensive regimen. Mixed hyperlipidemia Prescribed aspirin and atorvastatin as above. Interstitial lung disease (Multi) Not currently taking any inhalers, per chart review. Swelling of both lower extremities Pitting edema with asymmetric swelling to bilateral lower extremities (left greater than right). History of DVT requiring anticoagulation, which has since been discontinued. DVT prophylaxis: SCDs Diet: Cardiac Bowel regimen: MiraLAX CODE STATUS: DNR/DNI Dispo: PT, OT evaluation. Stable HB and creatinine. Continue to follow recs from Nephrology Dr Martin. Dinesh Boyle MD Occupational Therapy Evaluation and Treatment Patient Name: Jewel Chaves Today's Date: 01/31/2025 Time Calculation Start Time: 734 Stop Time: 807 Time Calculation (min): 33 min 312/312-A Assessment IP OT Assessment OT Assessment: pt needing increased assistance for all aspects of ADL and mobility. Pt is having troubles with involuntary body/BLE jerking movements during functional tasks placing him at a very high risk for further falls. Recommend OT services at moderate intensity in order to ensure safe return home Prognosis: Good Barriers to Discharge Home: Caregiver assistance, Physical needs Caregiver Assistance: Caregiver assistance needed per identified barriers - however, level of patient's required assistance exceeds assistance available at home Physical Needs: 24hr mobility assistance needed, Intermittent ADL assistance needed, High falls risk due to function or environment Evaluation/Treatment Tolerance: Patient tolerated treatment well Medical Staff Made Aware: Yes End of Session Communication: Bedside nurse, Physician, PCT/NA/CTA (notified team of body jerking movements) End of Session Patient Position: Alarm on, Up in chair (call light in reach) Plan: Treatment Interventions: ADL retraining, Functional transfer training, Endurance training, Equipment evaluation/education, Neuromuscular reeducation, Compensatory technique education OT Frequency: 3 times per week OT Discharge Recommendations: Moderate intensity level of continued care OT Recommended Transfer Status: Assist of 1, Assist of 2 OT - OK to Discharge: Yes (once medically stable) Subjective Current Problem: 1. Acute kidney injury superimposed on chronic kidney disease 2. Anemia, unspecified type 3. Swelling of both lower extremities Vascular US lower extremity venous duplex bilateral Vascular US lower extremity venous duplex bilateral 4. Localized edema Vascular US lower extremity venous duplex bilateral General: General Reason for Referral: 89 year old admitted for weakness, falls, anemia needing blood transfusion. Referred By: Hang Past Medical History Relevant to Rehab: pancytopenia, possible myelodysplaisa: currently being tx by oncology Family/Caregiver Present: Yes () Prior to Session Communication: Bedside nurse Patient Position Received: Bed, 3 rail up, Alarm off, not on at start of session General Comment: pt agreeable to session and eager to get up Precautions: Medical Precautions: Fall precautions, Oxygen therapy device and L/min (3 lpm) Vital Signs: SpO2: 95 % Pain: Pain Assessment Pain Assessment: 0-10 0-10 (Numeric) Pain Score: 0 - No pain Objective Cognition: Overall Cognitive Status: Within Functional Limits Orientation Level: Oriented X4 Home Living: Type of Home: House Lives With: Spouse Home Adaptive Equipment: Walker rolling or standard Home Layout: Two level, Able to live on main level with bedroom/bathroom Home Access: Stairs to enter with rails Entrance Stairs-Number of Steps: 2 Bathroom Shower/Tub: Walk-in shower Bathroom Equipment: Grab bars in shower Home Living Comments: sleeps in regular bed Prior Function: ADL Assistance: Independent Homemaking Assistance: Independent Ambulatory Assistance: Independent (typically no device but has been using FWW since Thursday due to B legs jerking) ADL: Eating Assistance: Independent Grooming Assistance: Stand by Bathing Assistance: Maximal UE Dressing Assistance: Stand by LE Dressing Assistance: Maximal Toileting Assistance with Device: Maximal ADL Comments: pt has several episodes of B legs jerking and almost buckling during session Activity Tolerance: Endurance: Endurance does not limit participation in activity Bed Mobility/Transfers: Bed Mobility Bed Mobility: Yes Bed Mobility 1 Bed Mobility 1: Supine to sitting Level of Assistance 1: Close supervision Bed Mobility Comments 1: bed flat, heavy use of bed rail Transfers Transfer: Yes Transfer 1 Technique 1: Sit to stand, Stand to sit Transfer Device 1: Walker, Gait belt Transfer Level of Assistance 1: Contact guard, Minimum assistance Trials/Comments 1: education on safety and technique- FWW is new learning for pt. Ambulation/Gait Training: Functional Mobility Functional Mobility Performed: Yes Functional Mobility 1 Surface 1: Level tile Device 1: Rolling walker Functional Mobility Support Devices: Gait belt Assistance 1: Minimum assistance Comments 1: pt has several episodes of B legs/body jerking with almost buckling. pt is educated on how to use FWW appropriately to decrease risk for falls Sitting Balance: Static Sitting Balance Static Sitting-Level of Assistance: Independent Standing Balance: Static Standing Balance Static Standing-Level of Assistance: Contact guard, Minimum assistance (body jerking movements) Vision: Vision - Basic Assessment Current Vision: No visual deficits Sensation: Light Touch: No apparent deficits Strength: Strength Comments: BUE WFL Coordination: Movements are Fluid and Coordinated: Yes Outcome Measures: [facility] Daily Activity Putting on and taking off regular lower body clothing: A lot Bathing (including washing, rinsing, drying): A lot Putting on and taking off regular upper body clothing: A little Toileting, which includes using toilet, bedpan or urinal: A lot Taking care of personal grooming such as brushing teeth: A little Eating Meals: A little Daily Activity - Total Score: 15 EDUCATION: Education Documentation Body Mechanics, taught by Jing Martinez OT at 01/31/2025 12:44 PM. Learner: Patient Readiness: Acceptance Method: Explanation, Demonstration Response: Demonstrated Understanding, Needs Reinforcement Comment: safety and correct use of FWW during ADL Precautions, taught by Jing Martinez OT at 01/31/2025 12:44 PM. Learner: Patient Readiness: Acceptance Method: Explanation, Demonstration Response: Demonstrated Understanding, Needs Reinforcement Comment: safety and correct use of FWW during ADL ADL Training, taught by Jing Martinez OT at 01/31/2025 12:44 PM. Learner: Patient Readiness: Acceptance Method: Explanation, Demonstration Response: Demonstrated Understanding, Needs Reinforcement Comment: safety and correct use of FWW during ADL Education Comments No comments found. Goals: Encounter Problems Encounter Problems (Active) ADLs Patient will perform UB and LB bathing with contact guard assist level of assistance. (Progressing) Start: 01/31/25 Expected End: 02/14/25 Patient with complete lower body dressing with contact guard assist level of assistance (Progressing) Start: 01/31/25 Expected End: 02/14/25 Patient will complete toileting including hygiene clothing management/hygiene with contact guard assist level of assistance. (Progressing) Start: 01/31/25 Expected End: 02/14/25 BALANCE Pt will maintain dynamic standing balance during ADL task with contact guard assist level of assistance in order to demonstrate decreased risk of falling and improved postural control. (Progressing) Start: 01/31/25 Expected End: 02/14/25 01/31/25 1234 Discharge Planning Living Arrangements Spouse/significant other Support Systems Spouse/significant other;Children Assistance Needed walker Type of Residence Private residence Number of Stairs to Enter Residence 2 Number of Stairs Within Residence 0 (Bedroom/bath on the first floor) Do you have animals or pets at home? Yes Type of Animals or Pets 1 cat Who is requesting discharge planning? Provider Home or Post Acute Services Post acute facilities (Rehab/SNF/etc) Type of Post Acute Facility Services Rehab Expected Discharge Disposition SNF Does the patient need discharge transport arranged? Yes RoundTrip coordination needed? Yes Has discharge transport been arranged? No Financial Resource Strain How hard is it for you to pay for the very basics like food, housing, medical care, and heating? Not hard Housing Stability In the last 12 months, was there a time when you were not able to pay the mortgage or rent on time? N In the past 12 months, how many times have you moved where you were living? 0 At any time in the past 12 months, were you homeless or living in a long-term (including now)? N Transportation Needs In the past 12 months, has lack of transportation kept you from medical appointments or from getting medications? no In the past 12 months, has lack of transportation kept you from meetings, work, or from getting things needed for daily living? No Patient Choice Provider Choice list and [facility] website (https://medicare.gov/care-compar e#search) for post-acute Quality and Resource Measure Data were provided and reviewed with: Family;Patient Patient / Family choosing to utilize agency / facility established prior to hospitalization No Stroke Family Assessment Stroke Family Assessment Needed No Intensity of Service Intensity of Service 0-30 min Care Transitions: Patient reviewed in care round meeting this AM, and is medically appropriate for inpatient status. Spoke to PT/OT, evals completed with recommendation to SNF for rehab. Met with patient and spouse at bedside for initial assessment. Role of TCC explained. Demographics and contacts verified. PCP is Dr. العراقي. Preferred pharmacy is [facility] in [place]. Denies any difficulty obtaining/affording medications, takes as ordered. He has been independent at home with Adl's and was able to drive elf. He has a cane and walker at home that he recently started using. He started to feel weak at home and fell on Thursday without serious injury. Patient is also agreeable to SNF referrals for rehab. Discussed facilities of choice. Will request [facility]SC auth team send referrals to [facility], [facility], and [facility] [place] via [facility]. FOC is either [facility] or [facility]. <[facility] IMM reviewed, patient signed, copy provided, original placed in chart. Voiced understanding. Care team to follow. Marimar Suero RN/TCC -[phone] SNF referral status checked via Careport. [facility] and [facility] are able to accept. Spoke to patient to notify. States his FOC is [facility] because his step-daughter works there. Will update facility choice in careport. Marimar Suero RN/TCC documented in this encounter [facility] Work Phone: 02-03-2025 Hospital Discharge instructions Medhat Gutierrez MD - 02/03/2025 12:18 PM EDT Patient will need to follow-up with heme-onc Repeat CBC on 02/07/2025 Olga Ann RN - 02/03/2025 12:31 PM EDT Activity Level: As tolerates. Out of Bed with Assistance Knee high lauren hose, may remove for care. Olga Ann RN - 02/03/2025 12:30 PM EDT Type: Regular Cardiac Fat restriction: 70 gm fat Sodium restriction: 2 - 3 grams Sodium Olga Ann RN - 02/03/2025 12:30 PM EDT Device Nasal Cannula Rate in liters per minute: 3 LPM Keep O2 Sat Above: 90% documented in this encounter [facility] Work Phone: 02-03-2025 Hospital course Narrative Discharge Diagnosis Acute kidney injury superimposed on chronic kidney disease Issues Requiring Follow-Up Discharge Meds Medication List CONTINUE taking these medications FreeStyle [place] 2 [place] misc; Generic drug: flash glucose scanning reader; Use as instructed * FreeStyle [place] 2 Sensor kit; Generic drug: flash glucose sensor kit; Inject 1 each under the skin if needed (CHANGE EVERY 14 DAYS). Use as instructed * FreeStyle [place] 2 Sensor kit; Generic drug: flash glucose sensor kit; Use as directed FreeStyle [place] 3 Sensor device; Generic drug: blood-glucose sensor; Use as directed lancets 33 gauge misc pen needle, diabetic 32 gauge x 5/32 needle; Commonly known as: Pen Needle; 1 each once daily. * This list has 2 medication(s) that are the same as other medications prescribed for you. Read the directions carefully, and ask your doctor or other care provider to review them with you. ASK your doctor about these medications allopurinol 100 mg tablet; Commonly known as: Zyloprim; TAKE 1 TABLET BY MOUTH ONCE DAILY amLODIPine 5 mg tablet; Commonly known as: Norvasc; Take 1 tablet (5 mg) by mouth once daily in the morning. Take before meals. ascorbic acid 250 MG chewable tablet; Commonly known as: Vitamin C aspirin 81 mg EC tablet atorvastatin 40 mg tablet; Commonly known as: Lipitor; Take 1 tablet (40 mg) by mouth once daily. carvedilol 6.25 mg tablet; Commonly known as: Coreg CENTRUM ADULTS ORAL ciprofloxacin 500 mg tablet; Commonly known as: Cipro; Take 1 tablet (500 mg) by mouth once daily for 14 days.; Ask about: Should I take this medication? cyanocobalamin (vitamin B-12) 1,000 mcg tablet extended release; Commonly known as: Vitamin B-12 FeroSuL 325 mg (65 mg iron) tablet; Generic drug: ferrous sulfate furosemide 40 mg tablet; Commonly known as: Lasix; TAKE 1.5 TABLET BY MOUTH EVERY DAY gabapentin 300 mg capsule; Commonly known as: Neurontin; Take 1 capsule (300 mg) by mouth 2 times a day. Lantus U-100 Insulin 100 unit/mL injection; Generic drug: insulin glargine; Inject 60 Units under the skin once daily at bedtime. metoprolol tartrate 50 mg tablet; Commonly known as: Lopressor; Take 1 tablet by mouth 2 times a day. nitroglycerin 0.4 mg SL tablet; Commonly known as: Nitrostat; Place 1 tablet (0.4 mg) under the tongue every 5 minutes if needed for chest pain. NON FORMULARY pantoprazole 40 mg EC tablet; Commonly known as: ProtoNix; Take 1 tablet (40 mg) by mouth 2 times a day. primidone 50 mg tablet; Commonly known as: Mysoline; TAKE 1 TABLET BY MOUTH AT BEDTIME * spironolactone 25 mg tablet; Commonly known as: Aldactone; Take 1 tablet (25 mg) by mouth once daily. * spironolactone 50 mg tablet; Commonly known as: Aldactone sucralfate 1 gram tablet; Commonly known as: Carafate; Take 1 tablet (1 g) by mouth 3 times daily (morning, midday, late afternoon). vitamins A,C,R-xhgg-xnutbz 2,148 mcg-113 mg-45 mg-17.4mg tablet * This list has 2 medication(s) that are the same as other medications prescribed for you. Read the directions carefully, and ask your doctor or other care provider to review them with you. Test Results Pending At Discharge Pending Labs Order Current Status Extra Urine Bustos Tube Collected (01/30/251836) Urinalysis with Reflex Culture and Microscopic In process Hospital Course 89-year-old male with past medical history of mild dysplasia, CKD stage IV, hypertension, type 2 diabetes, coronary artery disease who presents with tremors, weakness, recurrent falls he was admitted for management of these issues. Patient does have chronic anemia, I did discuss his case with the skin care instructor patient has history of lymphoma and was recommended chemotherapy but he refused. He did receive blood transfusion, hemoglobin has remained stable it is not acutely dropping so anemia is most likely secondary to marrow failure. Palliative care and hospice was discussed patient is not ready for hospice yet he is okay with palliative care. He is following up with hematology as an outpatient. Tremors have improved. He is off gabapentin which I will restart at a much smaller dose at discharge. Patient will see palliative care at the facility. On baseline oxygen. Pertinent Physical Exam At Time of Discharge Physical Exam General: Well-developed elderly male, in no acute distress HEENT: AT, NC, no JVD, no lymphadenopathy, neck supple Lungs: Clear, no wheezing, no crackles Cardiac: Normal S1-S2, no murmur, no gallop Abdomen: Soft, nontender, no distention, positive bowel sound Extremities: No deformity, bilateral lower extremity pitting edema noted, pulses intact, ROM intact Neurological: Alert awake oriented x3, sensation intact, clear speech Outpatient Follow-Up Future Appointments Date Time Provider Department [place] 02/13/2025 9:00 AM Elaine Betts APRN-LIZZ [id number] [facility] 02/13/2025 9:30 AM INF 01 [place] [facility] 02/27/2025 10:00 AM INF 03 [facility] SAMHiSCC[facility] 04/05/2025 9:40 AM Palmira العراقي MD [id number] None 05/15/2025 10:00 AM Antione Harp DO [id number] [facility] Medhat Gutierrez MD documented in this encounter [facility] Work Phone: 02-02-2025 Evaluation + Plan note Associated Problem(s): Mixed hyperlipidemia Prescribed aspirin and atorvastatin as above. Management as above. [facility] Work Phone: 02-02-2025 Evaluation + Plan note Associated Problem(s): Interstitial lung disease (Multi) Not currently taking any inhalers, per chart review. [facility] Work Phone: 02-02-2025 Miscellaneous Notes Associated Problem(s): Mixed hyperlipidemia Prescribed aspirin and atorvastatin as above. Management as above. Associated Problem(s): Interstitial lung disease (Multi) Not currently taking any inhalers, per chart review. The patient's goals for the shift include The clinical goals for the shift include no falls Over the shift, the patient did not make progress toward the following goals. Barriers to progression include . Recommendations to address these barriers include Problem: Pain - Adult Goal: Verbalizes/displays adequate comfort level or baseline comfort level Outcome: Progressing Problem: Safety - Adult Goal: Free from fall injury Outcome: Progressing Problem: Discharge Planning Goal: Discharge to home or other facility with appropriate resources Outcome: Progressing Problem: Chronic Conditions and Co-morbidities Goal: Patient's chronic conditions and co-morbidity symptoms are monitored and maintained or improved Outcome: Progressing Problem: Nutrition Goal: Nutrient intake appropriate for maintaining nutritional needs Outcome: Progressing Problem: Fall/Injury Goal: Not fall by end of shift Outcome: Progressing Goal: Be free from injury by end of the shift Outcome: Progressing Goal: Verbalize understanding of personal risk factors for fall in the hospital Outcome: Progressing Goal: Verbalize understanding of risk factor reduction measures to prevent injury from fall in the home Outcome: Progressing Goal: Use assistive devices by end of the shift Outcome: Progressing Goal: Pace activities to prevent fatigue by end of the shift Outcome: Progressing Problem: Diabetes Goal: Achieve decreasing blood glucose levels by end of shift Outcome: Progressing Goal: Increase stability of blood glucose readings by end of shift Outcome: Progressing Goal: Maintain electrolyte levels within acceptable range throughout shift Outcome: Progressing Goal: Maintain glucose levels >70mg/dl to <250mg/dl throughout shift Outcome: Progressing Goal: No changes in neurological exam by end of shift Outcome: Progressing Goal: Learn about and adhere to nutrition recommendations by end of shift Outcome: Progressing Goal: Vital signs within normal range for age by end of shift Outcome: Progressing Goal: Increase self care and/or family involovement by end of shift Outcome: Progressing . The patient's goals for the shift include The clinical goals for the shift include no falls Problem: Pain - Adult Goal: Verbalizes/displays adequate comfort level or baseline comfort level Outcome: Progressing Problem: Safety - Adult Goal: Free from fall injury Outcome: Progressing Problem: Discharge Planning Goal: Discharge to home or other facility with appropriate resources Outcome: Progressing Problem: Chronic Conditions and Co-morbidities Goal: Patient's chronic conditions and co-morbidity symptoms are monitored and maintained or improved Outcome: Progressing Problem: Nutrition Goal: Nutrient intake appropriate for maintaining nutritional needs Outcome: Progressing Problem: Fall/Injury Goal: Not fall by end of shift Outcome: Progressing Goal: Be free from injury by end of the shift Outcome: Progressing Goal: Verbalize understanding of personal risk factors for fall in the hospital Outcome: Progressing Goal: Verbalize understanding of risk factor reduction measures to prevent injury from fall in the home Outcome: Progressing Goal: Use assistive devices by end of the shift Outcome: Progressing Goal: Pace activities to prevent fatigue by end of the shift Outcome: Progressing Problem: Diabetes Goal: Achieve decreasing blood glucose levels by end of shift Outcome: Progressing Goal: Increase stability of blood glucose readings by end of shift Outcome: Progressing Goal: Maintain electrolyte levels within acceptable range throughout shift Outcome: Progressing Goal: Maintain glucose levels >70mg/dl to <250mg/dl throughout shift Outcome: Progressing Goal: No changes in neurological exam by end of shift Outcome: Progressing Goal: Learn about and adhere to nutrition recommendations by end of shift Outcome: Progressing Goal: Vital signs within normal range for age by end of shift Outcome: Progressing Goal: Increase self care and/or family involovement by end of shift Outcome: Progressing The patient's goals for the shift include The clinical goals for the shift include ambulate to chair Problem: Safety - Adult Goal: Free from fall injury Outcome: Progressing Problem: Chronic Conditions and Co-morbidities Goal: Patient's chronic conditions and co-morbidity symptoms are monitored and maintained or improved Outcome: Progressing Problem: Discharge Planning Goal: Discharge to home or other facility with appropriate resources Outcome: Progressing . The clinical goals for the shift include Get stroner and no falls Over the shift, the patient remained free from falls and injury. Used call light appropriately. Patient said he wears a CPAP at night at home. Patient was offered a hospital CPAP but he refused CPAP for tonight. RT told him if he changes his mind to call. Patient is on a 2L nasal cannula. Associated Problem(s): Acute kidney injury superimposed on chronic kidney disease Experienced 2 recent falls precipitated by shakiness and generalized weakness; initial evaluation remarkable for creatinine 3.5 mg/dL (baseline appears to be 2.5 mg/dL). Follows with nephrology outpatient. Consult nephrology for further evaluation/recommendations. Avoid nephrotoxic medications. Reduce gabapentin dose; hold furosemide; SCDs for DVT Ppx. Continue ferrous sulfate as above. Associated Problem(s): Stage 4 chronic kidney disease (Multi) Follows with nephrology outpatient; baseline creatinine approximately 2.5 mg/dL, with baseline EGFR 20-26. Associated Problem(s): CAD (coronary artery disease) Status-post PCI x 4 (2008). Prescribed aspirin 81 mg, atorvastatin 40 mg, metoprolol 50 mg twice daily. Continue ASA, atorvastatin, and metoprolol. Admit to telemetry. EKG as needed for chest pain. Associated Problem(s): Type 2 diabetes mellitus with stage 4 chronic kidney disease, with long-term current use of insulin (Multi) Last A1c 10% (10/2024). On Lantus 60u nightly. Continue home Lantus. Add moderate dose sliding scale with meals. Insulin orders per protocol. Change gabapentin dose as above. Associated Problem(s): Hypertension Prescribed amlodipine 5 mg daily, spironolactone 25 mg daily, and carvedilol 6.25 mg twice daily. Continue home antihypertensive regimen. Would recommend discussing prescription for dual beta-tricia therapy, as this is atypical. Associated Problem(s): Mixed hyperlipidemia Prescribed aspirin and atorvastatin as above. Management as above. 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 Follows with Dr. Prado outpatient. Currently receiving darbepoetin every 2 weeks for total of 6 months; declined initiation of chemotherapy last week. Currently pancytopenic, with Hgb below baseline as above. Currently receiving 2 units packed red blood cells as above. Continue ferrous sulfate, vitamin C, vitamin B12. Consider oncology consult if no improvement in AM. Associated Problem(s): Interstitial lung disease (Multi) Not currently taking any inhalers, per chart review. Associated Problem(s): Acute on chronic anemia Presents following 2 falls at home precipitated by shakiness and generalized weakness; initial evaluation remarkable for hemodynamic stability with acute on chronic anemia (current hemoglobin 7 g/dL, baseline 8-8.5 g/dL). Darker than usual stools, but otherwise no evident signs/symptoms of bleeding. Possible etiologies include progression of myelodysplastic disease, anemia of chronic disease in the setting of known kidney disease, and occult GI bleed; concomitant YU does pose concern for possible low volume status secondary to occult bleed. Currently receiving 2 units packed red blood cells in ER. Follow-up fecal occult blood test. Repeat CBC in AM. Consider gastroenterology evaluation in the event of positive FOBT above. Change prescribed pantoprazole to IV twice daily. Continue ferrous sulfate. Hold ciprofloxacin in light of ongoing diarrhea and YU. Monitor for signs/symptoms of bleeding. Associated Problem(s): Swelling of both lower extremities Pitting edema with asymmetric swelling to bilateral lower extremities (left greater than right). History of DVT requiring anticoagulation, which has since been discontinued. Will obtain Doppler of bilateral lower extremities to rule out DVT in light of high risk given history of malignancy documented in this encounter [facility] Work Phone: 02-02-2025 Plan of care note The patient's goals for the shift include The clinical goals for the shift include no falls Over the shift, the patient did not make progress toward the following goals. Barriers to progression include . Recommendations to address these barriers include Problem: Pain - Adult Goal: Verbalizes/displays adequate comfort level or baseline comfort level Outcome: Progressing Problem: Safety - Adult Goal: Free from fall injury Outcome: Progressing Problem: Discharge Planning Goal: Discharge to home or other facility with appropriate resources Outcome: Progressing Problem: Chronic Conditions and Co-morbidities Goal: Patient's chronic conditions and co-morbidity symptoms are monitored and maintained or improved Outcome: Progressing Problem: Nutrition Goal: Nutrient intake appropriate for maintaining nutritional needs Outcome: Progressing Problem: Fall/Injury Goal: Not fall by end of shift Outcome: Progressing Goal: Be free from injury by end of the shift Outcome: Progressing Goal: Verbalize understanding of personal risk factors for fall in the hospital Outcome: Progressing Goal: Verbalize understanding of risk factor reduction measures to prevent injury from fall in the home Outcome: Progressing Goal: Use assistive devices by end of the shift Outcome: Progressing Goal: Pace activities to prevent fatigue by end of the shift Outcome: Progressing Problem: Diabetes Goal: Achieve decreasing blood glucose levels by end of shift Outcome: Progressing Goal: Increase stability of blood glucose readings by end of shift Outcome: Progressing Goal: Maintain electrolyte levels within acceptable range throughout shift Outcome: Progressing Goal: Maintain glucose levels >70mg/dl to <250mg/dl throughout shift Outcome: Progressing Goal: No changes in neurological exam by end of shift Outcome: Progressing Goal: Learn about and adhere to nutrition recommendations by end of shift Outcome: Progressing Goal: Vital signs within normal range for age by end of shift Outcome: Progressing Goal: Increase self care and/or family involovement by end of shift Outcome: Progressing . [facility] 02-01-2025 Plan of care note The patient's goals for the shift include The clinical goals for the shift include no falls Problem: Pain - Adult Goal: Verbalizes/displays adequate comfort level or baseline comfort level Outcome: Progressing Problem: Safety - Adult Goal: Free from fall injury Outcome: Progressing Problem: Discharge Planning Goal: Discharge to home or other facility with appropriate resources Outcome: Progressing Problem: Chronic Conditions and Co-morbidities Goal: Patient's chronic conditions and co-morbidity symptoms are monitored and maintained or improved Outcome: Progressing Problem: Nutrition Goal: Nutrient intake appropriate for maintaining nutritional needs Outcome: Progressing Problem: Fall/Injury Goal: Not fall by end of shift Outcome: Progressing Goal: Be free from injury by end of the shift Outcome: Progressing Goal: Verbalize understanding of personal risk factors for fall in the hospital Outcome: Progressing Goal: Verbalize understanding of risk factor reduction measures to prevent injury from fall in the home Outcome: Progressing Goal: Use assistive devices by end of the shift Outcome: Progressing Goal: Pace activities to prevent fatigue by end of the shift Outcome: Progressing Problem: Diabetes Goal: Achieve decreasing blood glucose levels by end of shift Outcome: Progressing Goal: Increase stability of blood glucose readings by end of shift Outcome: Progressing Goal: Maintain electrolyte levels within acceptable range throughout shift Outcome: Progressing Goal: Maintain glucose levels >70mg/dl to <250mg/dl throughout shift Outcome: Progressing Goal: No changes in neurological exam by end of shift Outcome: Progressing Goal: Learn about and adhere to nutrition recommendations by end of shift Outcome: Progressing Goal: Vital signs within normal range for age by end of shift Outcome: Progressing Goal: Increase self care and/or family involovement by end of shift Outcome: Progressing [facility] 01-31-2025 Plan of care note The patient's goals for the shift include The clinical goals for the shift include ambulate to chair Problem: Safety - Adult Goal: Free from fall injury Outcome: Progressing Problem: Chronic Conditions and Co-morbidities Goal: Patient's chronic conditions and co-morbidity symptoms are monitored and maintained or improved Outcome: Progressing Problem: Discharge Planning Goal: Discharge to home or other facility with appropriate resources Outcome: Progressing . [facility] 01-31-2025 Consult note Associated Order (s): IP CONSULT TO NEPHROLOGY Reason For Consult Acute renal failure History Of Present Illness Jewel Chaves is a 89 y.o. male presenting with weakness. Can Jose to severe weakness and also having falls. He states that he had some shakiness and some major weakness. He states that his legs pretty much gave out on him and he did fall over the weekend. When he presented to the hospital he was found to have acute kidney injury He does have a longstanding history of chronic kidney disease He states he is urinating normally for him and has no issues with that He just went to the restroom not long before I saw him He otherwise has been pretty active in the recent past He and his go on trips together to see different places on bus trips He does have a little bit of swelling of his lower extremities although he states that this is feeling pretty good for him Past Medical History He has a past medical history of Abnormal levels of other serum enzymes, Dependence on other enabling machines and devices, Encounter for examination of eyes and vision without abnormal findings, Localized edema, Old myocardial infarction, Other conditions influencing health status (11/09/2019), Pain in unspecified ankle and joints of unspecified foot, Personal history of other diseases of the digestive system, Personal history of other diseases of the digestive system, Personal history of other endocrine, nutritional and metabolic disease (09/13/2020), Presence of coronary angioplasty implant and graft, Rash and other nonspecific skin eruption (10/12/2019), Unspecified abdominal hernia without obstruction or gangrene, and Unspecified abdominal pain (03/20/2021). Surgical History He has a past surgical history that includes Other surgical history (08/10/2019); Other surgical history (08/10/2019); and Other surgical history (08/10/2019). Social History He reports that he has never smoked. He has never used smokeless tobacco. He reports that he does not drink alcohol and does not use drugs. Family History Family History Problem Relation Name Age of Onset Colon cancer Mother Colon cancer Other Allergies Metformin Review of Systems A full 10 point review of systems was obtained and is negative except for the HPI as above Physical Exam Physical Exam Constitutional: Appearance: Normal appearance. He is obese. HENT: Head: Normocephalic and atraumatic. Right Ear: External ear normal. Left Ear: External ear normal. Nose: Nose normal. Mouth/Throat: Mouth: Mucous membranes are moist. Pharynx: Oropharynx is clear. Eyes: Extraocular Movements: Extraocular movements intact. Conjunctiva/sclera: Conjunctivae normal. Pupils: Pupils are equal, round, and reactive to light. Cardiovascular: Rate and Rhythm: Normal rate and regular rhythm. Pulmonary: Effort: Pulmonary effort is normal. Breath sounds: Normal breath sounds. Abdominal: General: Abdomen is flat. Palpations: Abdomen is soft. Musculoskeletal: General: Swelling present. Right lower leg: Edema present. Left lower leg: Edema present. Skin: General: Skin is warm and dry. Findings: Erythema and rash present. Neurological: General: No focal deficit present. Mental Status: He is alert and oriented to person, place, and time. Psychiatric: Mood and Affect: Mood normal. Behavior: Behavior normal. I&O 24HR Intake/Output Summary (Last 24 hours) at 01/31/2025 1353 Last data filed at 01/31/2025 0700 Gross per 24 hour Intake 672.92 ml Output 925 ml Net -252.08 ml Vitals 24HR Heart Rate: [58-82] Temp: [35.6 C (96 F)-36.8 C (98.2 F)] Resp: [16-20] BP: (102-132)/(51-96) Height: [172.7 cm (5' 8)] Weight: [101 kg (223 lb 8.7 oz)-102 kg (225 lb 5 oz)] SpO2: [93 %-100 %] Scheduled medications allopurinol, 100 mg, oral, Daily amLODIPine, 5 mg, oral, Daily before breakfast ascorbic acid, 250 mg, oral, Daily aspirin, 81 mg, oral, Daily atorvastatin, 40 mg, oral, Daily carvedilol, 6.25 mg, oral, BID cyanocobalamin, 1,000 mcg, oral, Daily [START ON 02/01/2025] ferrous sulfate, 1 tablet, oral, Every other day [Held by provider] furosemide, 60 mg, oral, Daily insulin glargine, 60 Units, subcutaneous, q24h insulin lispro, 0-10 Units, subcutaneous, TID AC metoprolol tartrate, 50 mg, oral, BID oxygen, , inhalation, Continuous - Inhalation pantoprazole, 40 mg, intravenous, BID polyethylene glycol, 17 g, oral, Daily primidone, 50 mg, oral, Nightly spironolactone, 25 mg, oral, Daily sucralfate, 1 g, oral, TID Continuous medications PRN medications PRN medications: acetaminophen OR acetaminophen OR acetaminophen, dextrose, dextrose, glucagon, glucagon, melatonin, ondansetron ODT OR ondansetron Relevant Results Results reviewed Assessment/Plan Acute renal failure: Likely prerenal CKD IV with baseline creatinine 2.3-2.8 Pancytopenia Hypertension on amlodipine, Metoprolol, Furosemide, spironolactone Diabetic Nephropathy: Diabetes mellitus type 2 on insulin Bilateral lower extremity edema: Stable. History of pulmonary embolism Obesity Obstructive sleep apnea on CPAP machine and compliant Hyperlipidemia History of coronary artery B/L Renal Cyst Hyperuricemia Plan: Renal function is improving Discontinue spironolactone At last check iron levels were fine He has declined treatment for his pancytopenia and myelodysplastic syndrome versus lymphoma I will discuss with Dr. Prado. I will consult palliative care Physical therapy at this time Lasix was already on hold which I agree with Volume status looks pretty good Thanks for the consult Assessment & Plan Acute kidney injury superimposed on chronic kidney disease Other pancytopenia (Multi) Benign prostatic hyperplasia with urinary obstruction and other lower urinary tract symptoms CAD (coronary artery disease) Type 2 diabetes mellitus with stage 4 chronic kidney disease, with long-term current use of insulin (Multi) Hypertension Mixed hyperlipidemia Stage 4 chronic kidney disease (Multi) Peripheral vascular disease, 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[facility]) Interstitial lung disease (Multi) Acute on chronic anemia Swelling of both lower extremities Jose J Martin DO [facility] Work Phone: 01-31-2025 Consult note Associated Order (s): IP CONSULT TO NEPHROLOGY Reason For Consult Acute renal failure History Of Present Illness Jewel Chaves is a 89 y.o. male presenting with weakness. Can Jose to severe weakness and also having falls. He states that he had some shakiness and some major weakness. He states that his legs pretty much gave out on him and he did fall over the weekend. When he presented to the hospital he was found to have acute kidney injury He does have a longstanding history of chronic kidney disease He states he is urinating normally for him and has no issues with that He just went to the restroom not long before I saw him He otherwise has been pretty active in the recent past He and his go on trips together to see different places on bus trips He does have a little bit of swelling of his lower extremities although he states that this is feeling pretty good for him Past Medical History He has a past medical history of Abnormal levels of other serum enzymes, Dependence on other enabling machines and devices, Encounter for examination of eyes and vision without abnormal findings, Localized edema, Old myocardial infarction, Other conditions influencing health status (11/09/2019), Pain in unspecified ankle and joints of unspecified foot, Personal history of other diseases of the digestive system, Personal history of other diseases of the digestive system, Personal history of other endocrine, nutritional and metabolic disease (09/13/2020), Presence of coronary angioplasty implant and graft, Rash and other nonspecific skin eruption (10/12/2019), Unspecified abdominal hernia without obstruction or gangrene, and Unspecified abdominal pain (03/20/2021). Surgical History He has a past surgical history that includes Other surgical history (08/10/2019); Other surgical history (08/10/2019); and Other surgical history (08/10/2019). Social History He reports that he has never smoked. He has never used smokeless tobacco. He reports that he does not drink alcohol and does not use drugs. Family History Family History Problem Relation Name Age of Onset Colon cancer Mother Colon cancer Other Allergies Metformin Review of Systems A full 10 point review of systems was obtained and is negative except for the HPI as above Physical Exam Physical Exam Constitutional: Appearance: Normal appearance. He is obese. HENT: Head: Normocephalic and atraumatic. Right Ear: External ear normal. Left Ear: External ear normal. Nose: Nose normal. Mouth/Throat: Mouth: Mucous membranes are moist. Pharynx: Oropharynx is clear. Eyes: Extraocular Movements: Extraocular movements intact. Conjunctiva/sclera: Conjunctivae normal. Pupils: Pupils are equal, round, and reactive to light. Cardiovascular: Rate and Rhythm: Normal rate and regular rhythm. Pulmonary: Effort: Pulmonary effort is normal. Breath sounds: Normal breath sounds. Abdominal: General: Abdomen is flat. Palpations: Abdomen is soft. Musculoskeletal: General: Swelling present. Right lower leg: Edema present. Left lower leg: Edema present. Skin: General: Skin is warm and dry. Findings: Erythema and rash present. Neurological: General: No focal deficit present. Mental Status: He is alert and oriented to person, place, and time. Psychiatric: Mood and Affect: Mood normal. Behavior: Behavior normal. I&O 24HR Intake/Output Summary (Last 24 hours) at 01/31/2025 1353 Last data filed at 01/31/2025 0700 Gross per 24 hour Intake 672.92 ml Output 925 ml Net -252.08 ml Vitals 24HR Heart Rate: [58-82] Temp: [35.6 C (96 F)-36.8 C (98.2 F)] Resp: [16-20] BP: (102-132)/(51-96) Height: [172.7 cm (5' 8)] Weight: [101 kg (223 lb 8.7 oz)-102 kg (225 lb 5 oz)] SpO2: [93 %-100 %] Scheduled medications allopurinol, 100 mg, oral, Daily amLODIPine, 5 mg, oral, Daily before breakfast ascorbic acid, 250 mg, oral, Daily aspirin, 81 mg, oral, Daily atorvastatin, 40 mg, oral, Daily carvedilol, 6.25 mg, oral, BID cyanocobalamin, 1,000 mcg, oral, Daily [START ON 02/01/2025] ferrous sulfate, 1 tablet, oral, Every other day [Held by provider] furosemide, 60 mg, oral, Daily insulin glargine, 60 Units, subcutaneous, q24h insulin lispro, 0-10 Units, subcutaneous, TID AC metoprolol tartrate, 50 mg, oral, BID oxygen, , inhalation, Continuous - Inhalation pantoprazole, 40 mg, intravenous, BID polyethylene glycol, 17 g, oral, Daily primidone, 50 mg, oral, Nightly spironolactone, 25 mg, oral, Daily sucralfate, 1 g, oral, TID Continuous medications PRN medications PRN medications: acetaminophen OR acetaminophen OR acetaminophen, dextrose, dextrose, glucagon, glucagon, melatonin, ondansetron ODT OR ondansetron Relevant Results Results reviewed Assessment/Plan Acute renal failure: Likely prerenal CKD IV with baseline creatinine 2.3-2.8 Pancytopenia Hypertension on amlodipine, Metoprolol, Furosemide, spironolactone Diabetic Nephropathy: Diabetes mellitus type 2 on insulin Bilateral lower extremity edema: Stable. History of pulmonary embolism Obesity Obstructive sleep apnea on CPAP machine and compliant Hyperlipidemia History of coronary artery B/L Renal Cyst Hyperuricemia Plan: Renal function is improving Discontinue spironolactone At last check iron levels were fine He has declined treatment for his pancytopenia and myelodysplastic syndrome versus lymphoma I will discuss with Dr. Prado. I will consult palliative care Physical therapy at this time Lasix was already on hold which I agree with Volume status looks pretty good Thanks for the consult Assessment & Plan Acute kidney injury superimposed on chronic kidney disease Other pancytopenia (Multi) Benign prostatic hyperplasia with urinary obstruction and other lower urinary tract symptoms CAD (coronary artery disease) Type 2 diabetes mellitus with stage 4 chronic kidney disease, with long-term current use of insulin (Multi) Hypertension Mixed hyperlipidemia Stage 4 chronic kidney disease (Multi) Peripheral vascular disease, 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[facility]) Interstitial lung disease (Multi) Acute on chronic anemia Swelling of both lower extremities Jose J Martin DO documented in this encounter [facility] Work Phone: 01-31-2025 Plan of care note The clinical goals for the shift include Get stroner and no falls Over the shift, the patient remained free from falls and injury. Used call light appropriately. [facility] Work Phone: 01-30-2025 Plan of care note Patient said he wears a CPAP at night at home. Patient was offered a hospital CPAP but he refused CPAP for tonight. RT told him if he changes his mind to call. Patient is on a 2L nasal cannula. [facility] 01-30-2025 Evaluation + Plan note Associated Problem(s): Acute kidney injury superimposed on chronic kidney disease Experienced 2 recent falls precipitated by shakiness and generalized weakness; initial evaluation remarkable for creatinine 3.5 mg/dL (baseline appears to be 2.5 mg/dL). Follows with nephrology outpatient. Consult nephrology for further evaluation/recommendations. Avoid nephrotoxic medications. Reduce gabapentin dose; hold furosemide; SCDs for DVT Ppx. Continue ferrous sulfate as above. [facility] Work Phone: 01-30-2025 Evaluation + Plan note Associated Problem(s): Stage 4 chronic kidney disease (Multi) Follows with nephrology outpatient; baseline creatinine approximately 2.5 mg/dL, with baseline EGFR 20-26. [facility] Work Phone: 01-30-2025 Evaluation + Plan note Associated Problem(s): CAD (coronary artery disease) Status-post PCI x 4 (2008). Prescribed aspirin 81 mg, atorvastatin 40 mg, metoprolol 50 mg twice daily. Continue ASA, atorvastatin, and metoprolol. Admit to telemetry. EKG as needed for chest pain. [facility] Work Phone: 01-30-2025 Evaluation + Plan note Associated Problem(s): Type 2 diabetes mellitus with stage 4 chronic kidney disease, with long-term current use of insulin (Multi) Last A1c 10% (10/2024). On Lantus 60u nightly. Continue home Lantus. Add moderate dose sliding scale with meals. Insulin orders per protocol. Change gabapentin dose as above. [facility] Work Phone: 01-30-2025 Evaluation + Plan note Associated Problem(s): Hypertension Prescribed amlodipine 5 mg daily, spironolactone 25 mg daily, and carvedilol 6.25 mg twice daily. Continue home antihypertensive regimen. Would recommend discussing prescription for dual beta-tricia therapy, as this is atypical. [facility] Work Phone: 01-30-2025 Evaluation + Plan note Associated Problem(s): Mixed hyperlipidemia Prescribed aspirin and atorvastatin as above. Management as above. 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 Follows with Dr. Johan gaxiola. Currently receiving darbepoetin every 2 weeks for total of 6 months; declined initiation of chemotherapy last week. Currently pancytopenic, with Hgb below baseline as above. Currently receiving 2 units packed red blood cells as above. Continue ferrous sulfate, vitamin C, vitamin B12. Consider oncology consult if no improvement in AM. [facility] Work Phone: 01-30-2025 Evaluation + Plan note Associated Problem(s): Interstitial lung disease (Multi) Not currently taking any inhalers, per chart review. [facility] Work Phone: 01-30-2025 Evaluation + Plan note Associated Problem(s): Acute on chronic anemia Presents following 2 falls at home precipitated by shakiness and generalized weakness; initial evaluation remarkable for hemodynamic stability with acute on chronic anemia (current hemoglobin 7 g/dL, baseline 8-8.5 g/dL). Darker than usual stools, but otherwise no evident signs/symptoms of bleeding. Possible etiologies include progression of myelodysplastic disease, anemia of chronic disease in the setting of known kidney disease, and occult GI bleed; concomitant YU does pose concern for possible low volume status secondary to occult bleed. Currently receiving 2 units packed red blood cells in ER. Follow-up fecal occult blood test. Repeat CBC in AM. Consider gastroenterology evaluation in the event of positive FOBT above. Change prescribed pantoprazole to IV twice daily. Continue ferrous sulfate. Hold ciprofloxacin in light of ongoing diarrhea and YU. Monitor for signs/symptoms of bleeding. T [facility] Work Phone: 01-30-2025 Evaluation + Plan note Associated Problem(s): Swelling of both lower extremities Pitting edema with asymmetric swelling to bilateral lower extremities (left greater than right). History of DVT requiring anticoagulation, which has since been discontinued. Will obtain Doppler of bilateral lower extremities to rule out DVT in light of high risk given history of malignancy [facility] Work Phone: 01-30-2025 Physician Emergency department Note HPI Chief Complaint Patient presents with Weakness, Gen Patient sent over from the infusion clinic. Patient has history of MDS, was there receiving his injection. He complains of weakness, shortness of breath, and dark stools since Thursday. States he fell on Thursday. Presents to the emergency department as directed from the infusion clinic. Patient has a history of myelodysplastic syndrome and was receiving his treatment at the Center when he was reporting weakness and shortness of breath with exertion. Also had some dark stools for the over the past couple days. Patient reports no pain. States that he feels well while at rest. Patient also has a known history of chronic kidney disease for which she follows with nephrology. History provided by: Patient certified court/medical interpreter used: No Patient History Past Medical History: Diagnosis Date Abnormal levels of other serum enzymes Abnormal liver enzymes Dependence on other enabling machines and devices CPAP (continuous positive airway pressure) dependence Encounter for examination of eyes and vision without abnormal findings Diabetic eye exam Localized edema Bilateral leg edema Old myocardial infarction History of myocardial infarction Other conditions influencing health status 11/09/2019 Uncontrolled diabetes mellitus type 2 without complications Pain in unspecified ankle and joints of unspecified foot Arthralgia of ankle Personal history of other diseases of the digestive system History of gastroesophageal reflux (GERD) Personal history of other diseases of the digestive system History of dumping syndrome Personal history of other endocrine, nutritional and metabolic disease 09/13/2020 History of type 2 diabetes mellitus Presence of coronary angioplasty implant and graft History of coronary artery stent placement Rash and other nonspecific skin eruption 10/12/2019 Rash Unspecified abdominal hernia without obstruction or gangrene Hernia Unspecified abdominal pain 03/20/2021 Abdominal pain, left lateral Past Surgical History: Procedure Laterality Date OTHER SURGICAL HISTORY 08/10/2019 Arterial stent placement OTHER SURGICAL HISTORY 08/10/2019 Cholecystectomy OTHER SURGICAL HISTORY 08/10/2019 Hernia repair Family History Problem Relation Name Age of Onset Colon cancer Mother Colon cancer Other Social History Tobacco Use Smoking status: Never Smokeless tobacco: Never Vaping Use Vaping status: Never Used Substance Use Topics Alcohol use: Never Drug use: Never Physical Exam ED Triage Vitals Temperature Heart Rate Respirations BP 01/30/25 1504 01/30/25 1504 01/30/25 1504 01/30/25 1504 36.7 C (98.1 F) 76 17 126/63 Pulse Ox Temp Source Heart Rate Source Patient Position 01/30/25 1504 01/30/25 1504 01/30/25 1504 01/30/25 1639 (!) 93 % Oral Monitor Lying BP Location FiO2 (%) 01/30/25 1639 -- Left arm Physical Exam Vitals and nursing note reviewed. Constitutional: General: He is not in acute distress. Appearance: Normal appearance. He is normal weight. He is not ill-appearing, toxic-appearing or diaphoretic. HENT: Head: Normocephalic and atraumatic. Nose: Nose normal. No rhinorrhea. Neck: Comments: Trachea is midline Cardiovascular: Rate and Rhythm: Normal rate and regular rhythm. Heart sounds: No murmur heard. Pulmonary: Effort: Pulmonary effort is normal. Breath sounds: Normal breath sounds. No wheezing. Abdominal: General: Abdomen is flat. Bowel sounds are normal. There is no distension. Palpations: Abdomen is soft. Tenderness: There is no abdominal tenderness. Musculoskeletal: General: Normal range of motion. Cervical back: Normal range of motion. Skin: General: Skin is warm and dry. Findings: No rash. Neurological: General: No focal deficit present. Mental Status: He is alert and oriented to person, place, and time. Mental status is at baseline. Psychiatric: Mood and Affect: Mood normal. Behavior: Behavior normal. Thought Content: Thought content normal. Judgment: Judgment normal. ED Course & MDM Diagnoses as of 01/30/251818 Acute kidney injury superimposed on chronic kidney disease Anemia, unspecified type No data recorded Sigourney Coma Scale Score: 15 (01/30/25 1505 : Cami Espinoza RN) Medical Decision Making Twelve-lead EKG was interpreted by myself and this was noted to contribute directly to patient care. Study reveals a normal sinus rhythm at 75 bpm, leftward axis, delayed R wave progression, no acute ischemic changes Patient gave written informed consent for blood products after I explained the risks and benefits of administration. Patient was also started on gentle IV hydration. Given his symptomatology, advanced age, and lab results, I feel discharge would be an appropriate. Patient is at risk for endorgan damage and fall/injury. Patient case was discussed with the hospitalist who agrees and accepted the patient to their service. Procedure Procedures Ravi Bills DO 01/30/25 182 [facility] Work Phone: 03-31-2025 Emergency department Note HPI Chief Complaint Patient presents with Weakness, Gen Patient sent over from the infusion clinic. Patient has history of MDS, was there receiving his injection. He complains of weakness, shortness of breath, and dark stools since Thursday. States he fell on Thursday. Presents to the emergency department as directed from the infusion clinic. Patient has a history of myelodysplastic syndrome and was receiving his treatment at the Center when he was reporting weakness and shortness of breath with exertion. Also had some dark stools for the over the past couple days. Patient reports no pain. States that he feels well while at rest. Patient also has a known history of chronic kidney disease for which she follows with nephrology. History provided by: Patient certified court/medical interpreter used: No Patient History Past Medical History: Diagnosis Date Abnormal levels of other serum enzymes Abnormal liver enzymes Dependence on other enabling machines and devices CPAP (continuous positive airway pressure) dependence Encounter for examination of eyes and vision without abnormal findings Diabetic eye exam Localized edema Bilateral leg edema Old myocardial infarction History of myocardial infarction Other conditions influencing health status 11/09/2019 Uncontrolled diabetes mellitus type 2 without complications Pain in unspecified ankle and joints of unspecified foot Arthralgia of ankle Personal history of other diseases of the digestive system History of gastroesophageal reflux (GERD) Personal history of other diseases of the digestive system History of dumping syndrome Personal history of other endocrine, nutritional and metabolic disease 09/13/2020 History of type 2 diabetes mellitus Presence of coronary angioplasty implant and graft History of coronary artery stent placement Rash and other nonspecific skin eruption 10/12/2019 Rash Unspecified abdominal hernia without obstruction or gangrene Hernia Unspecified abdominal pain 03/20/2021 Abdominal pain, left lateral Past Surgical History: Procedure Laterality Date OTHER SURGICAL HISTORY 08/10/2019 Arterial stent placement OTHER SURGICAL HISTORY 08/10/2019 Cholecystectomy OTHER SURGICAL HISTORY 08/10/2019 Hernia repair Family History Problem Relation Name Age of Onset Colon cancer Mother Colon cancer Other Social History Tobacco Use Smoking status: Never Smokeless tobacco: Never Vaping Use Vaping status: Never Used Substance Use Topics Alcohol use: Never Drug use: Never Physical Exam ED Triage Vitals Temperature Heart Rate Respirations BP 01/30/25 1504 01/30/25 1504 01/30/25 1504 01/30/25 1504 36.7 C (98.1 F) 76 17 126/63 Pulse Ox Temp Source Heart Rate Source Patient Position 01/30/25 1504 01/30/25 1504 01/30/25 1504 01/30/25 1639 (!) 93 % Oral Monitor Lying BP Location FiO2 (%) 01/30/25 1639 -- Left arm Physical Exam Vitals and nursing note reviewed. Constitutional: General: He is not in acute distress. Appearance: Normal appearance. He is normal weight. He is not ill-appearing, toxic-appearing or diaphoretic. HENT: Head: Normocephalic and atraumatic. Nose: Nose normal. No rhinorrhea. Neck: Comments: Trachea is midline Cardiovascular: Rate and Rhythm: Normal rate and regular rhythm. Heart sounds: No murmur heard. Pulmonary: Effort: Pulmonary effort is normal. Breath sounds: Normal breath sounds. No wheezing. Abdominal: General: Abdomen is flat. Bowel sounds are normal. There is no distension. Palpations: Abdomen is soft. Tenderness: There is no abdominal tenderness. Musculoskeletal: General: Normal range of motion. Cervical back: Normal range of motion. Skin: General: Skin is warm and dry. Findings: No rash. Neurological: General: No focal deficit present. Mental Status: He is alert and oriented to person, place, and time. Mental status is at baseline. Psychiatric: Mood and Affect: Mood normal. Behavior: Behavior normal. Thought Content: Thought content normal. Judgment: Judgment normal. ED Course & MDM Diagnoses as of 01/30/251818 Acute kidney injury superimposed on chronic kidney disease Anemia, unspecified type No data recorded Sigourney Coma Scale Score: 15 (01/30/25 1505 : Cami Espinoza RN) Medical Decision Making Twelve-lead EKG was interpreted by myself and this was noted to contribute directly to patient care. Study reveals a normal sinus rhythm at 75 bpm, leftward axis, delayed R wave progression, no acute ischemic changes Patient gave written informed consent for blood products after I explained the risks and benefits of administration. Patient was also started on gentle IV hydration. Given his symptomatology, advanced age, and lab results, I feel discharge would be an appropriate. Patient is at risk for endorgan damage and fall/injury. Patient case was discussed with the hospitalist who agrees and accepted the patient to their service. Procedure Procedures Ravi Bills DO 01/30/25 182 documented in this encounter [facility] Work Phone: 01-30-2025 History and physical note History Of Present Illness Jewel Chaves is a 89 y.o. male presenting with recurrent episodes of tremors and weakness with subsequent fall in the setting of acute on chronic anemia. He was in usual health until this past weekend when he developed 2 episodes of shakiness and weakness, leading to falls once on Thursday and once on Thursday. He denied sustaining injury from the falls apart from a small bruise to his left wrist. He stated, I got shaky. My legs just went out from under me. He denied associated dizziness, lightheadedness, chest pain, dyspnea, palpitations, nausea, or diaphoresis at the time of the falls. He had a follow-up appointment at his oncologist office earlier today, at which time laboratory studies revealed a hemoglobin of 7, for which she was advised to present to the ER for further evaluation. He is currently followed by oncology for pancytopenia; per oncology note review, there are possible components of myelodysplasia and low-grade lymphoma. He has had poor response to erythropoietin in the past; he is currently receiving darbepoetin every 2 weeks for the next 5 months. He had discussions with his oncologist last week regarding potential chemotherapy, which he declined. He denies history of prior known gastrointestinal bleeding; he notes his stools have been darker than usual. He otherwise denies epistaxis, bleeding gums/mouth sores, hematuria, hematemesis, or katie red blood in stool. He currently takes aspirin; he is not on other blood thinners. He has a remote history of DVT for which he was previously prescribed Eliquis; he has not taken this in years. In the ED, vital signs were largely within normal limits. Laboratory studies were remarkable for elevated creatinine (3.5 mg/dL, baseline approximately 2.5 mg/dL), pancytopenia with anemia beyond baseline (WBC 1.1 k/uL, Hgb 7 g/dL, Plt 62 k/uL; baseline Hgb 8-8.5 g/dL), and hyperglycemia (263 mg/dL). Otherwise, BMP, magnesium, troponin largely within normal limits. Stool for occult blood testing pending. He was provided NS 500mL x1, Aranesp 500 mcg SQ x1, and 2u pRBC; he was then admitted to general medicine service for further care. 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 Poor erythropoietin response. Currently on darbepoetin trial. Surgical History He has a past surgical history that includes Other surgical history (08/10/2019); Other surgical history (08/10/2019); and Other surgical history (08/10/2019). Social History He reports that he has never smoked. He has never used smokeless tobacco. He reports that he does not drink alcohol and does not use drugs. Family History Family History Problem Relation Name Age of Onset Colon cancer Mother Colon cancer Other Allergies Metformin Review of Systems Constitutional: Negative for chills and fever. HENT: Negative for congestion, ear discharge, ear pain, rhinorrhea, sneezing and sore throat. Eyes: Negative for discharge and redness. Respiratory: Negative for cough and shortness of breath. Cardiovascular: Negative for chest pain and palpitations. Gastrointestinal: Positive for diarrhea (non-bloody). Negative for abdominal pain, blood in stool, constipation and nausea. Genitourinary: Negative for difficulty urinating, dysuria, frequency, hematuria and urgency. Musculoskeletal: Negative for arthralgias and joint swelling. Skin: Positive for rash (petechial to bilateral lower extremities). Neurological: Positive for weakness (generalized). Negative for dizziness, light-headedness, numbness and headaches. Physical Exam Vitals reviewed. Constitutional: General: He is not in acute distress. Appearance: He is not ill-appearing or toxic-appearing. Eyes: Conjunctiva/sclera: Conjunctivae normal. Cardiovascular: Rate and Rhythm: Normal rate and regular rhythm. Pulses: Normal pulses. Heart sounds: Murmur (systolic ejection murmur best appreciated at left parasternal border, 4th ICS) heard. Pulmonary: Effort: Pulmonary effort is normal. Breath sounds: Normal breath sounds. Abdominal: General: Bowel sounds are normal. There is distension. Palpations: Abdomen is soft. Tenderness: There is no abdominal tenderness. There is no guarding or rebound. Musculoskeletal: Cervical back: Normal range of motion and neck supple. No tenderness. Lymphadenopathy: Cervical: No cervical adenopathy. Skin: General: Skin is warm and dry. Findings: Rash (petechial rash to bilateral lower extremities) present. Neurological: General: No focal deficit present. Mental Status: He is alert. Mental status is at baseline. Last Recorded Vitals BP 158/90 (BP Location: Left arm, Patient Position: Lying) Pulse 71 Temp 36.7 C (98.1 F) (Oral) Resp 18 Wt 102 kg (225 lb) SpO2 95% Relevant Results Results for orders placed or performed during the hospital encounter of 01/30/25 (from the past 24 hours) Prepare RBC: 2 Units Result Value Ref Range PRODUCT CODE [id number] Unit Number [id number] Unit ABO O Unit RH NEG XM INTEP COMP Dispense Status XM Blood Expiration Date 02/08/2025 11:59:00 PM EDT PRODUCT BLOOD TYPE UNIT VOLUME 279 PRODUCT CODE [id number] Unit Number [id number] Unit ABO O Unit RH NEG XM INTEP COMP Dispense Status XM Blood Expiration Date 02/10/2025 11:59:00 PM EDT PRODUCT BLOOD TYPE 9500 UNIT VOLUME 350 Basic metabolic panel Result Value Ref Range Glucose 263 (H) 74 - 99 mg/dL Sodium 135 (L) 136 - 145 mmol/L Potassium 4.8 3.5 - 5.3 mmol/L Chloride 100 98 - 107 mmol/L Bicarbonate 24 21 - 32 mmol/L Anion Gap 16 10 - 20 mmol/L Urea Nitrogen 92 (HH) 6 - 23 mg/dL Creatinine 3.50 (H) 0.50 - 1.30 mg/dL eGFR 16 (L) >60 mL/min/1.73m*2 Calcium 9.3 8.6 - 10.3 mg/dL Magnesium Result Value Ref Range Magnesium 1.94 1.60 - 2.40 mg/dL Type And Screen Result Value Ref Range ABO TYPE O Rh TYPE NEG ANTIBODY SCREEN NEG Troponin I, High Sensitivity, Initial Result Value Ref Range Troponin I, High Sensitivity 10 0 - 20 ng/L Troponin, High Sensitivity, 1 Hour Result Value Ref Range Troponin I, High Sensitivity 11 0 - 20 ng/L *Note: Due to a large number of results and/or encounters for the requested time period, some results have not been displayed. A complete set of results can be found in Results Review. No results found. Assessment/Plan Assessment & Plan Acute on chronic anemia Presents following 2 falls at home precipitated by shakiness and generalized weakness; initial evaluation remarkable for hemodynamic stability with acute on chronic anemia (current hemoglobin 7 g/dL, baseline 8-8.5 g/dL). Darker than usual stools, but otherwise no evident signs/symptoms of bleeding. Possible etiologies include progression of myelodysplastic disease, anemia of chronic disease in the setting of known kidney disease, and occult GI bleed; concomitant YU does pose concern for possible low volume status secondary to occult bleed. Currently receiving 2 units packed red blood cells in ER. Follow-up fecal occult blood test. Repeat CBC in AM. Consider gastroenterology evaluation in the event of positive FOBT above. Change prescribed pantoprazole to IV twice daily. Continue ferrous sulfate. Hold ciprofloxacin in light of ongoing diarrhea and YU. Monitor for signs/symptoms of bleeding. 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 Follows with Dr. Prado outpatient. Currently receiving darbepoetin every 2 weeks for total of 6 months; declined initiation of chemotherapy last week. Currently pancytopenic, with Hgb below baseline as above. Currently receiving 2 units packed red blood cells as above. Continue ferrous sulfate, vitamin C, vitamin B12. Consider oncology consult if no improvement in AM. Acute kidney injury superimposed on chronic kidney disease Experienced 2 recent falls precipitated by shakiness and generalized weakness; initial evaluation remarkable for creatinine 3.5 mg/dL (baseline appears to be 2.5 mg/dL). Follows with nephrology outpatient. Consult nephrology for further evaluation/recommendations. Avoid nephrotoxic medications. Reduce gabapentin dose; hold furosemide; SCDs for DVT Ppx. Continue ferrous sulfate as above. Stage 4 chronic kidney disease (Multi) Follows with nephrology outpatient; baseline creatinine approximately 2.5 mg/dL, with baseline EGFR 20-26. Type 2 diabetes mellitus with stage 4 chronic kidney disease, with long-term current use of insulin (Multi) Last A1c 10% (10/2024). On Lantus 60u nightly. Continue home Lantus. Add moderate dose sliding scale with meals. Insulin orders per protocol. Change gabapentin dose as above. CAD (coronary artery disease) Status-post PCI x 4 (2008). Prescribed aspirin 81 mg, atorvastatin 40 mg, metoprolol 50 mg twice daily. Continue ASA, atorvastatin, and metoprolol. Admit to telemetry. EKG as needed for chest pain. Hypertension Prescribed amlodipine 5 mg daily, spironolactone 25 mg daily, and carvedilol 6.25 mg twice daily. Continue home antihypertensive regimen. Would recommend discussing prescription for dual beta-tricia therapy, as this is atypical. Mixed hyperlipidemia Prescribed aspirin and atorvastatin as above. Management as above. Interstitial lung disease (Multi) Not currently taking any inhalers, per chart review. Swelling of both lower extremities Pitting edema with asymmetric swelling to bilateral lower extremities (left greater than right). History of DVT requiring anticoagulation, which has since been discontinued. Will obtain Doppler of bilateral lower extremities to rule out DVT in light of high risk given history of malignancy DVT prophylaxis: SCDs Diet: Cardiac Bowel regimen: MiraLAX CODE STATUS: DNR/DNI I independently reviewed vital signs, laboratory studies including CBC, BMP, magnesium, troponin x 2, and urinalysis; I additionally reviewed prior notes from outpatient specialist including oncology, as well as prior labs to establish baseline for known chronic medical conditions. Elaine Mauricio MD [facility] Work Phone: 01-30-2025 History and physical note History Of Present Illness Jewel Chaves is a 89 y.o. male presenting with recurrent episodes of tremors and weakness with subsequent fall in the setting of acute on chronic anemia. He was in usual health until this past weekend when he developed 2 episodes of shakiness and weakness, leading to falls once on Thursday and once on Thursday. He denied sustaining injury from the falls apart from a small bruise to his left wrist. He stated, I got shaky. My legs just went out from under me. He denied associated dizziness, lightheadedness, chest pain, dyspnea, palpitations, nausea, or diaphoresis at the time of the falls. He had a follow-up appointment at his oncologist office earlier today, at which time laboratory studies revealed a hemoglobin of 7, for which she was advised to present to the ER for further evaluation. He is currently followed by oncology for pancytopenia; per oncology note review, there are possible components of myelodysplasia and low-grade lymphoma. He has had poor response to erythropoietin in the past; he is currently receiving darbepoetin every 2 weeks for the next 5 months. He had discussions with his oncologist last week regarding potential chemotherapy, which he declined. He denies history of prior known gastrointestinal bleeding; he notes his stools have been darker than usual. He otherwise denies epistaxis, bleeding gums/mouth sores, hematuria, hematemesis, or katie red blood in stool. He currently takes aspirin; he is not on other blood thinners. He has a remote history of DVT for which he was previously prescribed Eliquis; he has not taken this in years. In the ED, vital signs were largely within normal limits. Laboratory studies were remarkable for elevated creatinine (3.5 mg/dL, baseline approximately 2.5 mg/dL), pancytopenia with anemia beyond baseline (WBC 1.1 k/uL, Hgb 7 g/dL, Plt 62 k/uL; baseline Hgb 8-8.5 g/dL), and hyperglycemia (263 mg/dL). Otherwise, BMP, magnesium, troponin largely within normal limits. Stool for occult blood testing pending. He was provided NS 500mL x1, Aranesp 500 mcg SQ x1, and 2u pRBC; he was then admitted to general medicine service for further care. 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 Poor erythropoietin response. Currently on darbepoetin trial. Surgical History He has a past surgical history that includes Other surgical history (08/10/2019); Other surgical history (08/10/2019); and Other surgical history (08/10/2019). Social History He reports that he has never smoked. He has never used smokeless tobacco. He reports that he does not drink alcohol and does not use drugs. Family History Family History Problem Relation Name Age of Onset Colon cancer Mother Colon cancer Other Allergies Metformin Review of Systems Constitutional: Negative for chills and fever. HENT: Negative for congestion, ear discharge, ear pain, rhinorrhea, sneezing and sore throat. Eyes: Negative for discharge and redness. Respiratory: Negative for cough and shortness of breath. Cardiovascular: Negative for chest pain and palpitations. Gastrointestinal: Positive for diarrhea (non-bloody). Negative for abdominal pain, blood in stool, constipation and nausea. Genitourinary: Negative for difficulty urinating, dysuria, frequency, hematuria and urgency. Musculoskeletal: Negative for arthralgias and joint swelling. Skin: Positive for rash (petechial to bilateral lower extremities). Neurological: Positive for weakness (generalized). Negative for dizziness, light-headedness, numbness and headaches. Physical Exam Vitals reviewed. Constitutional: General: He is not in acute distress. Appearance: He is not ill-appearing or toxic-appearing. Eyes: Conjunctiva/sclera: Conjunctivae normal. Cardiovascular: Rate and Rhythm: Normal rate and regular rhythm. Pulses: Normal pulses. Heart sounds: Murmur (systolic ejection murmur best appreciated at left parasternal border, 4th ICS) heard. Pulmonary: Effort: Pulmonary effort is normal. Breath sounds: Normal breath sounds. Abdominal: General: Bowel sounds are normal. There is distension. Palpations: Abdomen is soft. Tenderness: There is no abdominal tenderness. There is no guarding or rebound. Musculoskeletal: Cervical back: Normal range of motion and neck supple. No tenderness. Lymphadenopathy: Cervical: No cervical adenopathy. Skin: General: Skin is warm and dry. Findings: Rash (petechial rash to bilateral lower extremities) present. Neurological: General: No focal deficit present. Mental Status: He is alert. Mental status is at baseline. Last Recorded Vitals BP 158/90 (BP Location: Left arm, Patient Position: Lying) Pulse 71 Temp 36.7 C (98.1 F) (Oral) Resp 18 Wt 102 kg (225 lb) SpO2 95% Relevant Results Results for orders placed or performed during the hospital encounter of 01/30/25 (from the past 24 hours) Prepare RBC: 2 Units Result Value Ref Range PRODUCT CODE P8500I40 Unit Number [id number] Unit ABO O Unit RH NEG XM INTEP COMP Dispense Status XM Blood Expiration Date 02/08/2025 11:59:00 PM EDT PRODUCT BLOOD TYPE UNIT VOLUME 279 PRODUCT CODE P2598Z53 Unit Number [id number] Unit ABO O Unit RH NEG XM INTEP COMP Dispense Status XM Blood Expiration Date 02/10/2025 11:59:00 PM EDT PRODUCT BLOOD TYPE 9500 UNIT VOLUME 350 Basic metabolic panel Result Value Ref Range Glucose 263 (H) 74 - 99 mg/dL Sodium 135 (L) 136 - 145 mmol/L Potassium 4.8 3.5 - 5.3 mmol/L Chloride 100 98 - 107 mmol/L Bicarbonate 24 21 - 32 mmol/L Anion Gap 16 10 - 20 mmol/L Urea Nitrogen 92 (HH) 6 - 23 mg/dL Creatinine 3.50 (H) 0.50 - 1.30 mg/dL eGFR 16 (L) >60 mL/min/1.73m*2 Calcium 9.3 8.6 - 10.3 mg/dL Magnesium Result Value Ref Range Magnesium 1.94 1.60 - 2.40 mg/dL Type And Screen Result Value Ref Range ABO TYPE O Rh TYPE NEG ANTIBODY SCREEN NEG Troponin I, High Sensitivity, Initial Result Value Ref Range Troponin I, High Sensitivity 10 0 - 20 ng/L Troponin, High Sensitivity, 1 Hour Result Value Ref Range Troponin I, High Sensitivity 11 0 - 20 ng/L *Note: Due to a large number of results and/or encounters for the requested time period, some results have not been displayed. A complete set of results can be found in Results Review. No results found. Assessment/Plan Assessment & Plan Acute on chronic anemia Presents following 2 falls at home precipitated by shakiness and generalized weakness; initial evaluation remarkable for hemodynamic stability with acute on chronic anemia (current hemoglobin 7 g/dL, baseline 8-8.5 g/dL). Darker than usual stools, but otherwise no evident signs/symptoms of bleeding. Possible etiologies include progression of myelodysplastic disease, anemia of chronic disease in the setting of known kidney disease, and occult GI bleed; concomitant YU does pose concern for possible low volume status secondary to occult bleed. Currently receiving 2 units packed red blood cells in ER. Follow-up fecal occult blood test. Repeat CBC in AM. Consider gastroenterology evaluation in the event of positive FOBT above. Change prescribed pantoprazole to IV twice daily. Continue ferrous sulfate. Hold ciprofloxacin in light of ongoing diarrhea and YU. Monitor for signs/symptoms of bleeding. 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 Follows with Dr. Prado outpatient. Currently receiving darbepoetin every 2 weeks for total of 6 months; declined initiation of chemotherapy last week. Currently pancytopenic, with Hgb below baseline as above. Currently receiving 2 units packed red blood cells as above. Continue ferrous sulfate, vitamin C, vitamin B12. Consider oncology consult if no improvement in AM. Acute kidney injury superimposed on chronic kidney disease Experienced 2 recent falls precipitated by shakiness and generalized weakness; initial evaluation remarkable for creatinine 3.5 mg/dL (baseline appears to be 2.5 mg/dL). Follows with nephrology outpatient. Consult nephrology for further evaluation/recommendations. Avoid nephrotoxic medications. Reduce gabapentin dose; hold furosemide; SCDs for DVT Ppx. Continue ferrous sulfate as above. Stage 4 chronic kidney disease (Multi) Follows with nephrology outpatient; baseline creatinine approximately 2.5 mg/dL, with baseline EGFR 20-26. Type 2 diabetes mellitus with stage 4 chronic kidney disease, with long-term current use of insulin (Multi) Last A1c 10% (10/2024). On Lantus 60u nightly. Continue home Lantus. Add moderate dose sliding scale with meals. Insulin orders per protocol. Change gabapentin dose as above. CAD (coronary artery disease) Status-post PCI x 4 (2008). Prescribed aspirin 81 mg, atorvastatin 40 mg, metoprolol 50 mg twice daily. Continue ASA, atorvastatin, and metoprolol. Admit to telemetry. EKG as needed for chest pain. Hypertension Prescribed amlodipine 5 mg daily, spironolactone 25 mg daily, and carvedilol 6.25 mg twice daily. Continue home antihypertensive regimen. Would recommend discussing prescription for dual beta-tricia therapy, as this is atypical. Mixed hyperlipidemia Prescribed aspirin and atorvastatin as above. Management as above. Interstitial lung disease (Multi) Not currently taking any inhalers, per chart review. Swelling of both lower extremities Pitting edema with asymmetric swelling to bilateral lower extremities (left greater than right). History of DVT requiring anticoagulation, which has since been discontinued. Will obtain Doppler of bilateral lower extremities to rule out DVT in light of high risk given history of malignancy DVT prophylaxis: SCDs Diet: Cardiac Bowel regimen: MiraLAX CODE STATUS: DNR/DNI I independently reviewed vital signs, laboratory studies including CBC, BMP, magnesium, troponin x 2, and urinalysis; I additionally reviewed prior notes from outpatient specialist including oncology, as well as prior labs to establish baseline for known chronic medical conditions. Elaine Mauricio MD documented in this encounter [facility] Work Phone: 01-18-2025 History of Present illness Narrative Patient ID:Jewel Chaves is a 89 y.o. year old male patient with myelodysplasia Referring Physician: No referring provider defined for this encounter. Primary Care Provider: Palmira العراقي MD Chief Complaint Chief Complaint Patient presents with Anemia Stage 4 chronic kidney disease History of the Present Illness 08/10/2019. Visit with Dr. Jose J Martin for chronic kidney disease and hypertension. Chief complaint was fatigue and need to lose weight 09/13/2019. The patient has had long-term history of microcytic anemia going back to at least 2019 at which time his white count was 5.2 hemoglobin was 13.8 hematocrit 40.5 and a platelet count of 157,000. His MCV was 105 MCHC was 34. White blood cell differential count showed 66% polys, 17 lymphs, 11 monos and 4 eosinophils. 10/12/2019. Seen by primary care for probable shingles treated with Valtrex with chief complaint of waxing and waning left flank pain radiating up under his ribs, somewhat responsive to exercise.. He had a history of pulmonary embolus and was on Eliquis long-term. 12/26/2019. Seen by Dr. Rick for elevated PSA, BPH and erectile dysfunction. PSA in 2017 was 2.94, in 2017 it was 2.74 and in 2019 it was 4.03. We discussed biopsy and the patient wanted to have this followed and not biopsy. 01/09/2020. Follow-up with Jae Gannon APRN primary care. Referred to Dr. Chopra for colonoscopy and CT scan of the chest was ordered for follow-up of questionable lingular nodule. 01/11/2020. CT scan of the chest showed a stable 6 mm nodular lesion near the fissure in the lingula. 01/13/2020. Seen by Dr. Chopra who noted that the patient had had diarrhea off-and-on since cholecystectomy and had intermittent left-sided pain. He had a history of colon polyps. 02/21/2015. 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 Seen by Dr. Nancy Rios in follow-up. She noted that he had an abnormal CBC with macrocytic indices with a normal B12 level. The patient denies alcohol use. Hemoglobin A1c was 6.2. BUN was 33 creatinine was 1.74. 07/02/2020. Follow-up with Dr. Rick. PSA had come down from 4.03-3.77 11/05/2020 through 11/13/2020. Admitted to the hospital having been brought to the ED by squad after he fell forward on his toilet and was unable to get up. He denied hitting his head or losing consciousness. He blamed it on having back pain and shoulder pain for several weeks. He was febrile with a temperature of 100.9 and hypoxic with pulse ox of 86% on room air. Respirations were 24. He was positive for COVID and was treated with intravenous antibiotics and remdesivir, increased supplemental oxygen. He was able to be discharged to rehabilitation. Repeat CBC showed white count 4.3 with a hemoglobin 12.9 hematocrit 38.8 with an MCV of 102 and a platelet count of 173,000. White blood cell differential count showed minimal absolute lymphocytopenia at 0.6 with the lower limits of normal being 0.8. 12/31/2020. Follow-up with Dr. Rick. PSA was 9.9 in December. Decided to have prostate biopsy done on 01/21/2021. Results showed BPH. 08/07/2021. Follow-up with Dr. Rick. PSA in July was 2.77 02/05/2022. CBC showed white count 4.3 with hemoglobin 11.7 hematocrit 34.4 with an MCV of 107. Platelet count was 153,000. White blood cell differential count was essentially normal. 04/01/2022. CBC showed white count 3.6 with hemoglobin 11.6 hematocrit 34.4 and platelet count 117,000 with a normal white blood cell differential. 04/28/2022. Referred to Dr. Parra because of pancytopenia by Emma Hawkins APRN. CBC showed a white count of 3.9 with hemoglobin 12.3 hematocrit 36.1 and platelet count 129,000 with a normal differential. PSA was 3.26. The patient said that he felt well except for having increased fatigue. He continued on long-term anticoagulation. He was able to carry out his ADLs. He did complain of easy bruising. 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 Dr. Parra felt that there was a large component secondary to his chronic kidney disease. There was no evidence of nutritional deficiency. He checked him for hemolysis and monoclonal gammopathy and ordered an ultrasound for hepatosplenomegaly and testing for hepatitis, HIV and MAURIZIO. He said he would rather observe the patient rather than pursuing a bone marrow biopsy. 05/28/2022. Repeat lab data showed white count 3.9 with hemoglobin 12.3 hematocrit 36.1 and platelet count 129,000. BUN was 36 creatinine was 1.78. He had mild elevation of AST. Retake count was 2.3%. Flow cytometry showed a small clonal B-cell population. Hepatitis B was nonreactive. Hep C testing was negative. Serum protein electrophoresis was normal. Haptoglobin was normal. LDH was normal. He said that the possibility of MDS could not be ruled out. Ultrasound showed fatty liver but no splenomegaly. He plan for EPO level and NGS for myeloid mutation. 07/03/2022. 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 2022. Seen by Dr. Dr. العراقي. Patient was referred to dermatology for several skin lesions. He was referred to neurology because of his tremor that was not improving. She increased his glimepiride. 08/18/2022. CBC showed white count 3.0 with hemoglobin 10.5 hematocrit 31.3 and a platelet count of 106,000 MCV was 111. 08/27/2022. Follow-up with Dr. 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 He was suspicious for MDS. He referred him for a bone marrow biopsy. 10/02/2022. Follow-up with Dr. Parra. Bone marrow biopsy showed low-grade MDS. R IPSS score was low or very low depending on a karyotype which was still pending. We discussed initiating erythropoietin with Aranesp but the patient deferred and the decision was made to monitor him. 11/12/2022. CBC showed white count 3.4 with hemoglobin 10.3 hematocrit 32.2 and a platelet count of 137,000. MCV was 115. White blood cell differential count was normal. 11/14/2022. Follow-up with Dr. Parra. The patient did say that he had following getting out of the shower but did not sustain any injuries. He had been started by Dr. Martin on insulin for his diabetes which was helpful. Patient continued to be active inside his house. He remains on Eliquis. BR-IPSS score is very low. Counts remain stable. 01/30/2023. CBC showed a white count of 2.6 with hemoglobin 8.7 hematocrit 27.1 and a platelet count 97,000. MCV was 115. White blood cell differential count showed that he had an absolute neutrophil count of 1.36. 02/09/2023. CBC showed a white count of 2.5 with a hemoglobin 9.0 hematocrit of 27.7 with a platelet count of 92,000. MCV was 114. 02/16/2023. Follow-up with Elaine Betts APRN. Even though his hemoglobin had dropped to 9 the patient did not want to start his erythropoietin injections. 03/12/2023. CBC showed white count of 2.5 with a hemoglobin of 7.6 hematocrit 23.8 and a platelet count of 101,000. Absolute neutrophil count was 1.17. 03/16/2023 through 03/20/2023. Admitted to the hospital with anemia and generalized weakness black stools dizziness with a hemoglobin of 6.7. His BUN was [address] scan of the abdomen showed no acute process. There were findings consistent with atypical healing of the previous rib fracture with question Paget's disease although it was nonspecific. He was transfused 2 units packed red blood cells. EGD found 3 erosions in the cardia. He was prescribed Carafate. 03/25/2023. Follow-up with Dr. Dr. العراقي after discharge. CBC showed white count 1.9 with hemoglobin 8.6 hematocrit 28.3 and a platelet count of 140,000. Absolute neutrophil count was 1.06. Patient did not tolerate Carafate and stopped it. He was prescribed oral iron twice a day. He had not been prescribed a PPI which was then started. 04/02/2023. CBC showed white count of 1.9 with hemoglobin 7.7 hematocrit 24.8 and a platelet count of 87,000. 04/14/2023. CBC showed a white count of 1.9 with hemoglobin of 8.7 hematocrit 28.1 and platelet count of 89,000. 04/24/2023. Followed up with Dr. Dr. العراقي who reported that he was hospitalized again in [place] for GI bleed. At that time his Eliquis was discontinued and he was changed to Protonix and taken off his baby aspirin. Once again he was started on Carafate but did not tolerate it. 05/16/2023. CBC showed white count of 2.4 with hemoglobin 9.2 hematocrit 27.3 and a platelet count of 110,000. Absolute neutrophil count was 1.36. 05/18/2023. Follow-up with Elaine Betts. The patient had recently had a colonoscopy and had cauterizations he noted that he had dyspnea with exertion but no resting shortness of breath. He was on prednisone at that time. His sugars were in the 300s. He was on insulin. 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 Current level was found to be saturated. Once again the patient was reluctant to start CHRISTIE. 06/15/2023. Follow-up with Elaine Betts. CBC showed white count 1.8 with a hemoglobin 8.9 hematocrit 26.9 and a platelet count of 100,000. Absolute neutrophil count was 0.96. 07/08/2023. CBC showed a white count of 1.8 with hemoglobin 9.5 hematocrit 28.8 and a platelet count of 85,000 with an absolute neutrophil count of 0.99. 07/15/2023. Follow-up with Dr. Rick. PSA has gone down to 1.87. 08/10/2023. Follow-up with Elaine Betts who noted the patient remained on oxygen and CPAP. He says that he is awakening in the middle of the night around 3 to 4:00 in the morning. Sugars have been in the 300s. Neuropathy was unchanged. He had been started on erythropoietin every 3 weeks 09/22/2023. Follow-up with Elaine Betts. No improvement in his hemoglobin. White count had improved to 2.1 platelets were baseline. He had been placed on 40 mg of prednisone and continued on erythropoietin 300 mcg every 3 weeks. 11/03/2023. Follow-up with Elaine Betts. No improvement in hemoglobin. Symptomatically he was doing well. Plan was to increase frequency of his darbepoetin to every 2 weeks. 12/15/2023. Follow-up with Elaine Betts. Now on erythropoietin injections every 2 weeks. There was a discussion concerning repeat bone marrow biopsy with counts stayed low. 01/12/2024. Follow-up with Elaine Betts. No improvement in his hemoglobin. Patient was agreeable to repeat bone marrow biopsy. She also ordered a CAT scan of the chest abdomen and pelvis without contrast. 01/22/2024. CAT scan showed severe coronary artery calcifications. There is evidence of bronchiectasis in the lower lobes increased compared to previous CT scan from 2019. Predominantly groundglass opacities with bibasilar prominence. There is some subpleural sparing of the left upper lobe. There is a 3 mm nodule in the right upper lobe which was unchanged for several years. 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 There is a small fat-containing periumbilical hernia and bilateral inguinal hernias. Spleen size is at the upper limits of normal being 12.7 cm in length slightly increased when compared to study from 2019. Cysts were seen in the kidneys with diffuse cortical atrophy and a 4 mm hyperdense focus in the interpolar region of the right kidney possibly a stone. Prostatism was noted for gland measuring 6.2 cm. 01/28/2024. Seen by Dr. Harp for shortness of breath. He felt the patient had possible chronic interstitial lung disease versus periodic aspiration, hypoxia dyspnea on exertion. Further tests were ordered including high-resolution CT scan, complete pulmonary function testing, simple pulmonary stress test and follow-up. 02/09/2024. Follow-up with Elaine Betts. Erythropoietin injections continued every 2 weeks which the patient was tolerating well. 02/16/2024. Bone marrow biopsy was performed showing a hypercellular bone marrow at 50% with dyserythropoiesis. There are 1% blasts consistent with persistent myeloid neoplasm. Flow cytometry showed a small clonal CD5 negative, CD10 negative B-cell population and a polytypic background. 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 There was a very small abnormal T-cell population that could be incidental. Next generation sequencing showed 2 U2AF 1 variants, 1 of which was negative. The other had been previously seen. The marrow also showed dyserythropoiesis with bilobate forms and forms with irregular nuclear contours as well as blebbing. 02/23/2024. CBC showed white count 1.5 with a hemoglobin of 8.3 hematocrit 25.9 and platelet count of 71,000 with 37% neutrophils, 53 lymphocytes, 4 monos, 4 eosinophils with an absolute neutrophil count of 0.57. 02/24/2024. Return visit with Dr. Harp. He noted that the high-resolution CT scan showed no significant change from the previous CT scan the month before. Pulmonary function testing showed no response to bronchodilator and there was mild restrictive change with some suggestion of airway inflammation. The patient had difficulty doing the test because of persistent coughing. 6-minute walk test showed that the patient was able to maintain saturations at 93% with 2 L of oxygen per minute continuously. The test was terminated because of dyspnea. With his hypoxia on room air it was recommended that he be on oxygen continuously to keep his saturation greater than or equal to 92%. He continued on oxygen with his CPAP at 3 L at nighttime. 03/11/2024. This is my first visit with Mr. Chaves and his family. We went over some of the results of the bone marrow biopsy. I told him that I would have to wait until the chromosomal analysis returned. I also note the possibility of low-grade lymphoma. He may need to have an opinion with malignant hematology at [facility]. Stepdaughter who is here with him and his today is his advocate for maintaining his quality of life. She is an employee at a local nursing facility and is concerned about many clients she has who seem to be getting treated aggressively. 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 He will continue on this treatment for now. He is low counts were discussed and he knows that he is at higher risk for infection and bleeding. He continues on oxygen supplementation continuously. They will return in 2 weeks at which time laboratory tests will be performed. He just had a lesion removed from the dorsum of his right hand at the base of his first and second fingers. Stitches are still in place. It seems to be healing well without any significant bleeding or infection. He was told that it looked benign. 03/14/2024. Follow-up with Dr. Vianney Judge of cardiology who saw him in follow-up of his coronary artery disease with multiple stents having been placed, hypertension, dyslipidemia and previous pulmonary embolus related to COVID-19. She had stopped his Eliquis. 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 She noted that at some point his aspirin had been stopped but given his history of stents this was restarted and he tolerated it well. She said that his blood pressure was well-controlled. She noted blood sugars were between 150-2 50. She noted the patient was supposed to be using oxygen with exertion but the patient was not sure what rate it was supposed to be. She says that she would not stop his aspirin unless his platelets were less than 50,000 with complications of bleeding. She said it was very important to continue aspirin given a 15% chance of in-stent thrombosis with aspirin cessation. She increased her furosemide to 80 mg twice a day because of bilateral lower extremity edema and spironolactone to 25 mg twice daily until symptoms improve and encouraged him to cut back on his salt intake. She was see him again in about 9 months. 03/15/2024. Follow-up with Dr. Adams of ophthalmology who started him on Naphcon-A drops 1 drop 3 times a day in both eyes for excessive tearing 03/16/2024. Followed up with Dr. Robert Mortensen of podiatry who noted decreased pedal pulses 2 out of 4. He had footcare. 03/25/2024. Follow-up with Dr. Harp. Review of his x-rays showed no change. Physical examination showed decreased breath sounds but no inspiratory crackles that were previously heard. 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 He plan to repeat CT scan in July. 03/25/2024. He is here to follow-up on his bone marrow results. I told him that the chromosomal analysis would not be forthcoming before because the specimen failed to grow in culture. 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 We reviewed the fact that he is recommended to have at least 6 months of his erythropoietin before we decide whether or not it is a failure. He is agreeable to this. We will increase his dose of darbepoetin. He knows to be on the look out for any signs of infection or bleeding and to report this if it happens. We reviewed his most recent CBC. We will see him again in 2 weeks with his next injection. 03/31/2024. Follow-up with Dr. Dr. العراقي for his Medicare wellness visit. His magnesium dose was changed to twice daily indefinitely. 04/08/2024. He is here today for his darbepoetin injection. We have increased his dose to 500 mcg every 2 weeks. Will see if this has any effect. Laboratory dated today shows that his sugar is 290 and his sodium is 134. BUN is 46 and creatinine is 2.31. CBC shows white count 1.5 with a hemoglobin 8.1 hematocrit 24.7 and a platelet count of 71,000 which is very much like his most recent CBC. His absolute neutrophil count is 0.57. I talked to him about his current status which he feels is fairly stable. He is off oxygen. He has had no bleeding and no signs of infection. He understands that we have increased his dose of darbepoetin and we will watch his counts. He will report any side effects. He has continued to receive his darbepoetin injections. 05/16/2024. [facility]. He developed a rash on both lower extremities which started a week ago which is an erythematous papular rash. He denied any pain or itching. He did not have any vesicle formation. It is bilateral. He has had a shingles injection. He was told that he had disseminated zoster and was started on valacyclovir a gram twice daily for 7 days. 05/20/2024. Seen by Dr. Dr. العراقي who said that the rash has not gotten any worse and might be a little bit better. She noted that there were no vesicles no open areas no areas of secondary infection. 05/20/2024. He is here to receive his erythropoietin injection and to have a blood count. I told him it is not likely that this is disseminated zoster because it is nowhere else on his body but only on his lower extremities. This could be stasis dermatitis. I do not see any signs of vesicle formation and there never were any. It is mostly on the anterior shins. It is all below the knee. CBC today shows white count 1.4 with hemoglobin 8 hematocrit 25.4 platelet count 67,000 with 37 neutrophils 53 lymphocytes 5 monos 2 eosinophils. He is serum chemistry showed a sugar of 285 BUN of 49 creatinine of 2.67. We told him he needed to keep his hydration status high. He will continue with his injections today. Blood pressure today is 153/64. He has had no bleeding and no infection. He has had no chest pain or pressure. He is able to participate in his usual activities including mowing the yard. He has continued to receive his darbepoetin and has followed up with podiatry for nail and callus care. 07/01/2024. He is here in routine follow-up. He says that he is doing well. He has had no infections or bleeding. He has had no mouth sores. He has had continued swelling in his legs a little bit worse on the left than on the right. Blood sugar was greater than 300 but he admits to dietary indiscretion. Has had no chest pain. His blood pressure was 149/63. He says that his breathing is stable. He is using his oxygen at home at night and when he travels that he does not have it on today. His lab data has shown no sign of improvement so far with white count 1.3, hemoglobin 8.6 hematocrit 27.2 and a platelet count of 69,000. White blood cell differential count shows 38% polys, 50 lymphs, 5 monos, 2 eosinophils. We plan a 6-month trial of this dose of darbepoetin which will extend until September. We will see him again in about a month. 07/06/2024. CT scan of the chest showed mild streaky scarring in the lung bases bilaterally. The previously seen groundglass opacities probably be minimally improved. Calcified pleural plaques are seen without consolidation effusion or pneumothorax. There is no adenopathy seen by CT size criteria. Minimal hepatic steatosis was seen as well as calcified granuloma in the spleen and a somewhat atrophic pancreas. DJD was seen in the spine. 07/07/2024. Seen by Dr. 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 He noted myelodysplasia and that he was being followed for his anemia receiving CHRISTIE. He did not change any of his medications And said that he would see him again in about 6 months 07/12/2024. Follow-up by Dr. Harp at which time he told the patient he could decrease his oxygen to 2 and he would repeat a CT scan in 6 months and see him after that. 07/29/2024. He is here today in routine follow-up. He will get his shot today. Laboratory data shows no improvement. We reviewed that we will follow him for 6 months on this treatment to see if there is any improvement. Mr. Chaves says that he has had no significant bleeding. I see some red spots on the soft palate. His appetite has been good and he has gained weight of 1 pound since last time I saw him about a month ago. He has had no other signs of infection or deterioration in his status. He knows he is at risk for serious infection or bleeding. We will continue on this treatment pathway. He will see him again in a month. Interval Note 08/04/2024. Seen by Dr. 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 BUN was 47 and creatinine was 2.33 with an EGFR of 26. She noted that he did have some mild edema of the left lower leg and was in the habit of wearing compression stockings. He denied any increase in shortness of breath. She said that she wanted to stop his spironolactone which was 25 mg and appeared that it was started for edema. She said that he would check his blood pressure and weights for the next 2 weeks and then have repeat laboratory data. Spironolactone was discontinued. 08/12/2024. Laboratory data showed a BUN of 50 and a creatinine of 2.6, worse than before EGFR was 22. Sugar was 389. On 08/22/2024 she told him to stay off spironolactone and call if he had increasing swelling or shortness of breath. He was to continue weighing himself. 08/26/2024. Repeat laboratory data showed a BUN of 45 and a creatinine of 2.41 with a sugar of 374. He was continued on erythropoietin injections. 09/09/2024. BUN was 44 creatinine was 2.33 and sugar was 430. 09/20/2024. [facility] emergency department visit for tremor. The patient reported that his tremor was worse at night. He denied any history of restless leg syndrome. He said that his upper extremity tremor was relieved by movement. He has a history of previous movement disorder or any other neurologic symptoms. At that time he said that he was taking 20 mg of Lasix twice a day. Aldactone was still on his medication list. BUN is 43 creatinine was 2.45 and sugar was 373. CT of the head showed no evidence of bleeding there was mild to moderate brain parenchymal atrophy and white matter changes. He was referred to neurology. 09/23/2024. BUN was 15 creatinine was 2.60. Sugar was 353. At that time it was documented that he was taking 60 mg of Lasix daily and continuing Aldactone. He did have bilateral pedal edema. He was continued on family preservation officer protein injections. He weighed 229 pounds. 09/26/2024. BUN was 51 and creatinine was 2.64 with a sugar of 285. 10/10/2024. BUN was 44 creatinine was 2.47 with a sugar of 313. 10/11/2024. [facility] ED visit for a rash on his lower extremities. He was taking Lasix 40 mg twice a day and Aldactone daily. Blood pressure was 121/52 and he weighed 230 pounds. There was some mild erythema in his left lower extremity but was not weeping. He was slightly warm to the touch. It was said that this could be early cellulitis and a prescription for Keflex was written. 10/17/2024. He followed up with Dr. Dr. العراقي who said that they could switch antibiotics to doxycycline and recommended a follow-up appointment. He was seen on the following day and continued on doxycycline for mild to moderate erythema of the inner ankle lower leg he was also treated with gabapentin for his essential tremor. 10/24/2024. BUN was 43 creatinine was 2.46 with a sugar of 313. Seen in follow-up by Elaine Betts was continued on Depakote with stable counts. 10/31/2024. Followed up with Dr. Dr. العراقي with leg redness. The patient said that he thought he had the flu. His weight was 226 pounds. Blood pressure was 126/74. Laboratory data 2 days prior to the visit showed that his BUN was 52 and his creatinine was 2.62. Sugar was 151. 11/03/2024. Followed up with Dr. Ekle Martin with a decrease in his swelling and improvement in his legs lesions. She documented that he had had 2 falls without lightheadedness or dizziness. 11/07/2024. Laboratory data showed a sugar of 313 BUN of 41 and creatinine of 2.56 with an EGFR of 23. 11/16/2024. Seen by Dr. Mariah Can of [facility] neurology because of his tremors. He mentioned that gabapentin can cause swelling. He was recently discontinued. Symptoms appear to be improved. He noted the patient had already been on primidone. He had complained of chronic numbness of the left thumb and right thumb. 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 He was reluctant to see orthopedic reduction and risks were recommended as well as exercises to maintain strength. He said that he could continue primidone 50 mg p.o. nightly for essential tremor and increase the dose if needed and to avoid caffeine. 11/21/2024. BUN was 47 creatinine was 2.70 with an EGFR of 22. Sugar was 142. 12/05/2024. Laboratory data showed a BUN of 46 creatinine 2.42 with a sugar of 218. Follow-up with Elaine Betts at which time the patient said that he wanted to stay on erythropoietin. Repeat bone marrow was discussed with the patient was reluctant to do that or to see Dr. Anguiano for second opinion. 12/19/2024. Laboratory data showed a BUN of 49 creatinine 2.53 with a sugar of 300. 01/02/2025. BUN was 57 creatinine was 2.86 with a sugar of 284. Followed up with Elaine Betts still not wanting to get another opinion. Discussion was around supportive care and making sure that he understood the dangers of cytopenias. 01/03/2025. Follow-up with Dr. Dr. العراقي. No changes made in his medications. 01/06/2025. CT scan of the chest without contrast showed moderate basilar and subpleural predominant fibrosing interstitial lung disease with architectural distortion in the absence of honeycombing which have been waxing and waning the degree of inflammatory change had decreased over the past year. Densely calcified coronary arteries were seen and a new right retroareolar nodular appearing soft tissue measuring 1.6 cm and could represent asymmetric clinically mass via but this needed to have follow-up. 01/13/2025. Followed up with Dr. Harp. He noted that pulse ox on room air was 90% and on repeat was 96. 01/18/2025. He is here today with his . We wanted to make sure that he understood that his counts were not doing well and that he had potential problems with infections, bleeding and anemia that might cause him to have chest pains or increasing shortness of breath. We talked about the possibility of transfusions if he became more symptomatic. He verbalized understanding. He is not interested in another opinion at this time. He is not interested in being treated more aggressively at this time. He is more interested in going through his medicines and making sure that he needed all of them. We did identify that he is on carvedilol and metoprolol. He is also on sucralfate 3 times a day and pantoprazole 40 mg twice a day. He says that he is not experiencing any heartburn and has not for a while. We went through his medication list and noted what it was for. I encouraged him to talk to primary care about these issues. He has an appointment to see his registrar museum in the upcoming weeks. His blood pressure today 137/67. His most recent BUN and creatinine were 57 and 2.86 which I am sure have something to do with his state of hydration. He currently says that he is taking 1-1/2 of a 40 mg Lasix tablet daily and continues to take Aldactone 25 mg daily. He has prescriptions for both 25 and 50 mg of Aldactone. He has an upcoming appointment to see Elaine Betts in about 2 weeks. Comorbidities GERD Arthritis, DJD BPH Coronary artery disease with history of myocardial, status post stent infarction History of dumping syndrome Hyperlipidemia History of skin cancer Obesity Obstructive sleep apnea on CPAP Peripheral arterial disease CKD 3 Diabetes with nephropathy History of cholecystectomy and hernia repair Essential tremor Hypertension Numbness in his fingers felt to be related to cervical disc disease. Monitoring Parameters Histories, physical examinations and CBCs with occasional bone marrow biopsies. Review of Systems - Oncology Review of Systems Constitutional: Positive for fatigue. Negative for appetite change and unexpected weight change. HENT: Negative for dental problem, mouth sores, nosebleeds and trouble swallowing. Eyes: Negative for visual disturbance. Respiratory: Positive for shortness of breath (with activity). Negative for cough. Cardiovascular: Positive for leg swelling. Gastrointestinal: Negative for abdominal pain, constipation, diarrhea, nausea and vomiting. Endocrine: Negative for polyuria. Genitourinary: Negative for dysuria, frequency and urgency. Musculoskeletal: Positive for arthralgias and myalgias. Skin: Positive for pallor. Negative for rash. Neurological: Negative for weakness, light-headedness, numbness and headaches. Hematological: Bruises/bleeds easily. Psychiatric/Behavioral: Negative for self-injury, sleep disturbance and suicidal ideas. The patient is not nervous/anxious. Past Medical History Past Medical History: Diagnosis Date Abnormal levels of other serum enzymes Abnormal liver enzymes Dependence on other enabling machines and devices CPAP (continuous positive airway pressure) dependence Encounter for examination of eyes and vision without abnormal findings Diabetic eye exam Localized edema Bilateral leg edema Old myocardial infarction History of myocardial infarction Other conditions influencing health status 11/09/2019 Uncontrolled diabetes mellitus type 2 without complications Pain in unspecified ankle and joints of unspecified foot Arthralgia of ankle Personal history of other diseases of the digestive system History of gastroesophageal reflux (GERD) Personal history of other diseases of the digestive system History of dumping syndrome Personal history of other endocrine, nutritional and metabolic disease 09/13/2020 History of type 2 diabetes mellitus Presence of coronary angioplasty implant and graft History of coronary artery stent placement Rash and other nonspecific skin eruption 10/12/2019 Rash Unspecified abdominal hernia without obstruction or gangrene Hernia Unspecified abdominal pain 03/20/2021 Abdominal pain, left lateral Surgical History Past Surgical History: Procedure Laterality Date OTHER SURGICAL HISTORY 08/10/2019 Arterial stent placement OTHER SURGICAL HISTORY 08/10/2019 Cholecystectomy OTHER SURGICAL HISTORY 08/10/2019 Hernia repair Social History Social History Tobacco Use Smoking status: Never Smokeless tobacco: Never Vaping Use Vaping status: Never Used Substance Use Topics Alcohol use: Never Drug use: Never Family History family history includes Colon cancer in his mother and another family member. Current Medications Current Outpatient Medications Medication Instructions allopurinol (ZYLOPRIM) 100 mg, oral, Daily amLODIPine (NORVASC) 5 mg, oral, Daily before breakfast ascorbic acid (VITAMIN C) 250 mg aspirin 81 mg, Daily atorvastatin (LIPITOR) 40 mg, oral, Daily blood-glucose sensor (FreeStyle [place] 3 Sensor) device Use as directed carvedilol (COREG) 6.25 mg, 2 times daily ciprofloxacin (CIPRO) 500 mg, oral, Daily cyanocobalamin, vitamin B-12, (Vitamin B-12) 1,000 mcg tablet extended release 1 tablet FeroSuL tablet 1 tablet, Every other day flash glucose scanning reader (FreeStyle [place] 2 [place]) [facility] Use as instructed flash glucose sensor kit (FreeStyle [place] 2 Sensor) kit Use as directed FreeStyle [place] 2 Sensor kit 1 each, subcutaneous, As needed, Use as instructed furosemide (Lasix) 40 mg tablet TAKE 1.5 TABLET BY MOUTH EVERY DAY gabapentin (NEURONTIN) 300 mg, oral, 2 times daily lancets 33 gauge misc 2 times daily Lantus U-100 Insulin 60 Units, subcutaneous, Nightly metoprolol tartrate (LOPRESSOR) 50 mg, oral, 2 times daily multivit-minerals/folic acid (CENTRUM ADULTS ORAL) Take by mouth. nitroglycerin (NITROSTAT) 0.4 mg, sublingual, Every 5 min PRN NON FORMULARY [employer]ack test In vitro strip; Use as directed to check blood sugar 2 times daily pantoprazole (PROTONIX) 40 mg, oral, 2 times daily pen needle, diabetic (Pen Needle) 32 gauge x 5/32 needle 1 each, miscellaneous, Daily primidone (MYSOLINE) 50 mg, oral, Nightly spironolactone (Aldactone) 50 mg tablet TAKE 1 TABLET ( 50 MG) BY MOUTH DAILY FOR 30 DAYS. Hold if serum potassium is more than 5.0 spironolactone (ALDACTONE) 25 mg, oral, Daily sucralfate (CARAFATE) 1 g, oral, 3 times daily (morning, midday, late afternoon) vitamins A,C,B-[id number] 2,148 mcg-113 mg-45 mg-17.4mg tablet Take by mouth. [facility] [facility] OARRS Review I have personally reviewed the OARRS report for Jewel Chaves. I have considered the risks of abuse, dependence, addiction and diversion. He continues on gabapentin through primary care. Vital Signs BP 137/69 Pulse 67 Temp 36.1 C (97 F) (Skin) Resp 16 Wt 103 kg (227 lb 3.2 oz) SpO2 93% BMI 35.58 kg/m Physical Exam Vitals and nursing note reviewed. Exam conducted with a hold worker present. Constitutional: General: He is not in acute distress. Appearance: He is obese. He is ill-appearing. He is not toxic-appearing. Comments: He is a well-developed well-nourished overweight elderly white male who is here today with his . He does not have his oxygen on. He appears to be minimally chronically ill and pale. He is in good spirits. HENT: Head: Normocephalic and atraumatic. Nose: Nose normal. Mouth/Throat: Comments: He does have several areas of erythema on the soft palate on the right side. He has no evidence of thrush. Eyes: General: No scleral icterus. Extraocular Movements: Extraocular movements intact. Conjunctiva/sclera: Conjunctivae normal. Pupils: Pupils are equal, round, and reactive to light. Neck: Comments: No significant lymphadenopathy is palpated in the head neck region, supraclavicular or axillary areas bilaterally. Cardiovascular: Rate and Rhythm: Normal rate and regular rhythm. Heart sounds: Murmur: flow murmur. Pulmonary: Effort: Pulmonary effort is normal. Comments: He is not on oxygen today. Abdominal: Palpations: Abdomen is soft. Musculoskeletal: General: Normal range of motion. Cervical back: Normal range of motion. No rigidity or tenderness. Right lower leg: Edema present. Left lower leg: Edema present. Lymphadenopathy: Cervical: No cervical adenopathy. Skin: General: Skin is warm and dry. Coloration: Skin is pale. Skin is not jaundiced. Comments: Scattered bruises mostly on his arms Neurological: General: No focal deficit present. Mental Status: He is alert and oriented to person, place, and time. Mental status is at baseline. Cranial Nerves: Cranial nerve deficit present. Motor: No weakness. Gait: Gait normal. Comments: He is hard of hearing Psychiatric: Mood and Affect: Mood normal. Behavior: Behavior normal. Thought Content: Thought content normal. Judgment: Judgment normal. Comments: He is pleasant and interactive. Current Laboratory Data Recent Results (from the past week) CBC and Auto Differential Collection Time: 01/16/25 9:18 AM Result Value Ref Range WBC 1.0 (LL) 4.4 - 11.3 x10*3/uL nRBC 0.0 0.0 - 0.0 /100 WBCs RBC 2.41 (L) 4.50 - 5.90 x10*6/uL Hemoglobin 8.3 (L) 13.5 - 17.5 g/dL Hematocrit 25.4 (L) 41.0 - 52.0 % MCV 105 (H) 80 - 100 fL MCH 34.4 (H) 26.0 - 34.0 pg MCHC 32.7 32.0 - 36.0 g/dL RDW 19.6 (H) 11.5 - 14.5 % Platelets 43 (L) 150 - 450 x10*3/uL Immature Granulocytes %, Automated 1.0 (H) 0.0 - 0.9 % Immature Granulocytes Absolute, Automated 0.01 0.00 - 0.50 x10*3/uL Manual Differential Collection Time: 01/16/25 9:18 AM Result Value Ref Range Neutrophils %, Manual 37.0 40.0 - 80.0 % Lymphocytes %, Manual 53.0 13.0 - 44.0 % Monocytes %, Manual 4.0 2.0 - 10.0 % Eosinophils %, Manual 4.0 0.0 - 6.0 % Basophils %, Manual 0.0 0.0 - 2.0 % Atypical Lymphocytes %, Manual 2.0 0.0 - 2.0 % Seg Neutrophils Absolute, Manual 0.37 (L) 1.60 - 5.00 x10*3/uL Lymphocytes Absolute, Manual 0.53 (L) 0.80 - 3.00 x10*3/uL Monocytes Absolute, Manual 0.04 (L) 0.05 - 0.80 x10*3/uL Eosinophils Absolute, Manual 0.04 0.00 - 0.40 x10*3/uL Basophils Absolute, Manual 0.00 0.00 - 0.10 x10*3/uL Atypical Lymphs Absolute, Manual 0.02 0.00 - 0.30 x10*3/uL Total Cells Counted 100 RBC Morphology See Below Ovalocytes Few Recent Imaging CT chest wo IV contrast Result Date: 07/08/2024 Interpreted By: Ct Jeffers, STUDY: CT CHEST WO IV CONTRAST; 07/06/2024 1:47 pm INDICATION: Signs/Symptoms:interstitual lung disease. COMPARISON: 02/05/2024 ACCESSION NUMBER(S): [id number] ORDERING CLINICIAN: ANTIONE HARP TECHNIQUE: Helical data acquisition of the chest was obtained without IV contrast material. Images were reformatted in axial, coronal, and sagittal planes. FINDINGS: Lungs and Pleura: Mild streaky scarring in the lung bases bilaterally. The previously seen ground-glass opacities predominantly lower for low are only minimally improved. Calcified pleural plaques. No pulmonary consolidation. No pleural effusion. No pneumothorax. Mediastinum and axilla: No adenopathy by CT size criteria. Cardiomegaly. No pericardial effusion. Coronary artery calcifications. 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 Visualized Upper Abdomen: Status post cholecystectomy. Minimal hepatic steatosis. Calcified granulomas in the spleen. Somewhat atrophic pancreas. MSK/Chest Wall: Multilevel degenerative change in the spine. Stable streaky scarring in the lung bases. Only minimal improvement of previously seen ground-glass opacities. 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 Pancytopenia. The patient has unusual bone marrow findings. Chromosomal analysis will not be done due to failure of the specimen to grow. 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 He is not responding to erythropoietin. We will increase his dose to 500 mcg every other week. He continues to be at high risk for bleeding and infection with a low ANC and low platelet count. He has had previous GI bleeds. He is currently back on his aspirin per follow-up with Dr. Judge for fear of clotting off his stents. He is off Eliquis. He will get his treatment today with darbepoetin and continue every 14 days. He is not interested in the second ortiz at this time and does not want to be treated more aggressively. We will continue to be supportive. He will follow-up with Elaine Betts. Deepak the visit from Dr. Judge2. Multiple comorbidities. 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 3. Rash on his legs. I think this looks more like stasis dermatitis than disseminated zoster. If it were disseminated zoster he would have it on other areas of his body. He will follow-up with Elaine Betts. We would be glad to see him again as needed. He will continue his shots every 2 weeks. He knows that he should call in the interim should he have any change in his status, questions or concerns. Yisel Prado MD No change in tx plan- will continue labs and epoetin every 2 weeks- already has follow up with [facility] [employer] 02/13 Pt has a couple med issues to talk to his PCP about Instructed pt to all me for any questions or if he changes his mind for tx Reviewed AVS with patient- patient verbalizes understanding documented in this encounter [facility] Work Phone: 01-18-2025 Instructions Yisel Prado MD - 01/18/2025 1:00 PM EDT Reviewed labs and recent medical history. Discussed his low blood counts and again discussed the possibility of chemotherapy and other treatment options. Reviewed that it is okay to stay on the course that we are on at this time. He will consider this. Continue the antibiotic for now while your white blood cell count is low. Reviewed his medications and asked the question about why he is on 2 beta blockers and also why is he still on the carafate? He will ask his primary provider about these questions. Also reviewed with him that when his blood counts get low that he can get a blood transfusion if needed. Keep next appointment with DIET ASSISTANT and we are available for further questions. documented in this encounter [facility] Work Phone: 01-13-2025 History of Present illness Narrative Subjective Patient ID: Jewel Chaves is a 89 y.o. male who presents for No chief complaint on file.. HPI Patient was seen today in the office on a 6-month follow-up visit. Patient's oxygen saturation on room air today was 90% on POC #2 it is 96%. Review of the patient's chest x-rays from 07/06/2024 versus 01/06/2025 does show significantly better findings. Patient has mild cough with clear sputum production and no hemoptysis or wheezing. Patient does have some shortness of breath with walking. Review of Systems Patient denies any fever, chills, rhinitis or sore throat. Objective Physical Exam Pulmonary, lungs are clear to auscultation. Cardio, heart sounds are regular rate and rhythm. Extremities, no cyanosis, clubbing or pretibial edema. Psych, the patient was alert and oriented x 3 Assessment/Plan Impressions: 1. Patient does still have some mild groundglass infiltrates. 2. Patient is currently on CPAP at 20/6 cm water pressure and has an AHI of 1.1. Recommendations: 1. Continue with oxygen at OCD at #2. 2. Follow-up with the patient in 4 months. This note was transcribed using the [employer] Dictation system. There may be grammatical, punctuation, or verbiage errors that occur with voice recognition programs. Antione Harp DO 01/14/25 10:30 AM documented in this encounter [facility] Work Phone: 01-03-2025 History of Present illness Narrative Subjective Jewel Chaves is a 89 y.o. male who presents for Follow-up (3 month follow up). Here for routine follow up HTN, DM, CKD (Dr Martin), CAD ([facility]), high chol, thrombocytopenia/anemia/pancytope melba/myelodysplastic syndrome (Dr Prado), tremor (Dr Can), DWAIN, h/o PE, GI bleed, DWAIN on CPAP - tolerating well (Yeny). He states that he is doing pretty well. Objective Visit Vitals BP 124/76 Pulse 80 Physical Exam Vitals reviewed. Constitutional: General: He is not in acute distress. Cardiovascular: Rate and Rhythm: Normal rate and regular rhythm. Heart sounds: No murmur heard. Pulmonary: Effort: Pulmonary effort is normal. No respiratory distress. Breath sounds: Normal breath sounds. Skin: General: Skin is warm and dry. Neurological: General: No focal deficit present. Mental Status: He is alert. Mental status is at baseline. Latest Reference Range & Units 01/02/25 08:56 GLUCOSE 74 - 99 mg/dL 284 (H) SODIUM 136 - 145 mmol/L 136 POTASSIUM 3.5 - 5.3 mmol/L 5.1 CHLORIDE 98 - 107 mmol/L 100 Bicarbonate 21 - 32 mmol/L 25 Anion Gap 10 - 20 mmol/L 16 Blood Urea Nitrogen 6 - 23 mg/dL 57 (H) Creatinine 0.50 - 1.30 mg/dL 2.86 (H) EGFR >60 mL/min/1.73m*2 20 (L) Calcium 8.6 - 10.3 mg/dL 8.5 (L) Albumin 3.4 - 5.0 g/dL 4.1 Alkaline Phosphatase 33 - 136 U/L 81 ALT 10 - 52 U/L 20 AST 9 - 39 U/L 29 Bilirubin Total 0.0 - 1.2 mg/dL 1.2 Total Protein 6.4 - 8.2 g/dL 6.4 WBC 4.4 - 11.3 x10*3/uL 1.5 (L) nRBC 0.0 - 0.0 /100 WBCs 0.0 RBC 4.50 - 5.90 x10*6/uL 2.40 (L) HEMOGLOBIN 13.5 - 17.5 g/dL 8.6 (L) HEMATOCRIT 41.0 - 52.0 % 26.1 (L) MCV 80 - 100 fL 109 (H) MCH 26.0 - 34.0 pg 35.8 (H) MCHC 32.0 - 36.0 g/dL 33.0 RED CELL DISTRIBUTION WIDTH 11.5 - 14.5 % 19.4 (H) Platelets 150 - 450 x10*3/uL 66 (L) Immature Granulocytes %, Automated 0.0 - 0.9 % 0.0 Immature Granulocytes Absolute, Automated 0.00 - 0.50 x10*3/uL 0.00 Neutrophils %, Manual 40.0 - 80.0 % 40.0 Lymphocytes %, Manual 13.0 - 44.0 % 50.0 Monocytes %, Manual 2.0 - 10.0 % 1.0 Eosinophils %, Manual 0.0 - 6.0 % 7.0 Basophils %, Manual 0.0 - 2.0 % 0.0 Atypical Lymphocytes % 0.0 - 2.0 % 1.0 Blasts %, Manual 0.0 - 0.0 % 1.0 Seg Neutrophils Absolute, Manual 1.60 - 5.00 x10*3/uL 0.60 (L) Lymphocytes Absolute, Manual 0.80 - 3.00 x10*3/uL 0.75 (L) Monocytes Absolute, Manual 0.05 - 0.80 x10*3/uL 0.02 (L) Eosinophils Absolute, Manual 0.00 - 0.40 x10*3/uL 0.11 Basophils Absolute, Manual 0.00 - 0.10 x10*3/uL 0.00 Atypical Lymphs Absolute 0.00 - 0.30 x10*3/uL 0.02 Blasts Absolute, Manual 0.00 - 0.00 x10*3/uL 0.02 Total Cells Counted 100 RBC Morphology See Below Ovalocytes Few Basophilic Stippling Present (H): Data is abnormally high (L): Data is abnormally low Assessment/Plan Problem List Items Addressed This Visit Acid reflux Relevant Orders Follow Up In Primary Care - Medicare Annual Type 2 diabetes mellitus with stage 4 chronic kidney disease, with long-term current use of insulin (Multi) Relevant Orders Follow Up In Primary Care - Medicare Annual Hypertension - Primary Relevant Orders Follow Up In Primary Care - Medicare Annual Mixed hyperlipidemia Relevant Orders Follow Up In Primary Care - Medicare Annual Neutropenia Relevant Orders Follow Up In Primary Care - Medicare Annual Stage 4 chronic kidney disease (Multi) Relevant Orders Follow Up In Primary Care - Medicare Annual Thrombocytopenia ([facility]) Relevant Orders Follow Up In Primary Care - Medicare Annual Peripheral vascular disease, 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[facility]) Relevant Orders Follow Up In Primary Care - Medicare Annual Interstitial lung disease (Multi) Relevant Orders Follow Up In Primary Care - Medicare Annual Other Visit Diagnoses Class 2 severe obesity with serious comorbidity and body mass index (BMI) of 35.0 to 35.9 in adult, unspecified obesity type Relevant Orders Follow Up In Primary Care - Medicare Annual Palmira العراقي MD documented in this encounter [facility] Work Phone: 01-03-2025 Instructions Palmira العراقي MD - 01/03/2025 10:40 AM EST Continue current medications. Follow up with specialists as scheduled. Follow up in 3 months, sooner if needed. documented in this encounter [facility] Work Phone: 01-02-2025 History of Present illness Narrative Patient ID: Jewel Chaves is a 89 y.o. male. Subjective HPI HPI Patient ID: Jewel Chaves is a 89 y.o. male. Subjective Patient ID:Jewel Chaves is a 88 y.o. year old male patient with myelodysplasia Referring Physician: Yisel Prado MD [address] [place] [address] [facility] [place] [address] Primary Care Provider: Palmira العراقي MD Chief Complaint Chief Complaint Patient presents with Anemia History of the Present Illness 08/10/2019. Visit with Dr. Jose J Martin for chronic kidney disease and hypertension. Chief complaint was fatigue and need to lose weight 09/13/2019. The patient has had long-term history of microcytic anemia going back to at least 2019 at which time his white count was 5.2 hemoglobin was 13.8 hematocrit 40.5 and a platelet count of 157,000. His MCV was 105 MCHC was 34. White blood cell differential count showed 66% polys, 17 lymphs, 11 monos and 4 eosinophils. 10/12/2019. Seen by primary care for probable shingles treated with Valtrex with chief complaint of waxing and waning left flank pain radiating up under his ribs, somewhat responsive to exercise.. He had a history of pulmonary embolus and was on Eliquis long-term. 12/26/2019. Seen by Dr. Rick for elevated PSA, BPH and erectile dysfunction. PSA in 2017 was 2.94, in 2018 it was 2.74 and in 2019 it was 4.03. We discussed biopsy and the patient wanted to have this followed and not biopsy. 01/09/2020. Follow-up with Jae Gannon APRN primary care. Referred to Dr. Chopra for colonoscopy and CT scan of the chest was ordered for follow-up of questionable lingular nodule. 01/11/2020. CT scan of the chest showed a stable 6 mm nodular lesion near the fissure in the lingula. 01/13/2020. Seen by Dr. Chopra who noted that the patient had had diarrhea off-and-on since cholecystectomy and had intermittent left-sided pain. He had a history of colon polyps. 02/21/2015. 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 Seen by Dr. Nancy Rios in follow-up. She noted that he had an abnormal CBC with macrocytic indices with a normal B12 level. The patient denies alcohol use. Hemoglobin A1c was 6.2. BUN was 33 creatinine was 1.74. 07/02/2020. Follow-up with Dr. Rick. PSA had come down from 4.03-3.77 11/05/2020 through 11/13/2020. Admitted to the hospital having been brought to the ED by squad after he fell forward on his toilet and was unable to get up. He denied hitting his head or losing consciousness. He blamed it on having back pain and shoulder pain for several weeks. He was febrile with a temperature of 100.9 and hypoxic with pulse ox of 86% on room air. Respirations were 24. He was positive for COVID and was treated with intravenous antibiotics and remdesivir, increased supplemental oxygen. He was able to be discharged to rehabilitation. Repeat CBC showed white count 4.3 with a hemoglobin 12.9 hematocrit 38.8 with an MCV of 102 and a platelet count of 173,000. White blood cell differential count showed minimal absolute lymphocytopenia at 0.6 with the lower limits of normal being 0.8. 12/31/2020. Follow-up with Dr. Rick. PSA was 9.9 in December. Decided to have prostate biopsy done on 01/21/2021. Results showed BPH. 08/07/2021. Follow-up with Dr. Rick. PSA in July was 2.77 02/05/2022. CBC showed white count 4.3 with hemoglobin 11.7 hematocrit 34.4 with an MCV of 107. Platelet count was 153,000. White blood cell differential count was essentially normal. 04/01/2022. CBC showed white count 3.6 with hemoglobin 11.6 hematocrit 34.4 and platelet count 117,000 with a normal white blood cell differential. 04/28/2022. Referred to Dr. Parra because of pancytopenia by Emma Hawkins APRN. CBC showed a white count of 3.9 with hemoglobin 12.3 hematocrit 36.1 and platelet count 129,000 with a normal differential. PSA was 3.26. The patient said that he felt well except for having increased fatigue. He continued on long-term anticoagulation. He was able to carry out his ADLs. He did complain of easy bruising. 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 Dr. Parra felt that there was a large component secondary to his chronic kidney disease. There was no evidence of nutritional deficiency. He checked him for hemolysis and monoclonal gammopathy and ordered an ultrasound for hepatosplenomegaly and testing for hepatitis, HIV and MAURIZIO. He said he would rather observe the patient rather than pursuing a bone marrow biopsy. 05/28/2022. Repeat lab data showed white count 3.9 with hemoglobin 12.3 hematocrit 36.1 and platelet count 129,000. BUN was 36 creatinine was 1.78. He had mild elevation of AST. Retake count was 2.3%. Flow cytometry showed a small clonal B-cell population. Hepatitis B was nonreactive. Hep C testing was negative. Serum protein electrophoresis was normal. Haptoglobin was normal. LDH was normal. He said that the possibility of MDS could not be ruled out. Ultrasound showed fatty liver but no splenomegaly. He plan for EPO level and NGS for myeloid mutation. 07/03/2022. 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 2022. Seen by Dr. Dr. العراقي. Patient was referred to dermatology for several skin lesions. He was referred to neurology because of his tremor that was not improving. She increased his glimepiride. 08/18/2022. CBC showed white count 3.0 with hemoglobin 10.5 hematocrit 31.3 and a platelet count of 106,000 MCV was 111. 08/27/2022. Follow-up with Dr. 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 He was suspicious for MDS. He referred him for a bone marrow biopsy. 10/02/2022. Follow-up with Dr. Parra. Bone marrow biopsy showed low-grade MDS. R IPSS score was low or very low depending on a karyotype which was still pending. We discussed initiating erythropoietin with Aranesp but the patient deferred and the decision was made to monitor him. 11/12/2022. CBC showed white count 3.4 with hemoglobin 10.3 hematocrit 32.2 and a platelet count of 137,000. MCV was 115. White blood cell differential count was normal. 11/14/2022. Follow-up with Dr. Parra. The patient did say that he had following getting out of the shower but did not sustain any injuries. He had been started by Dr. Martin on insulin for his diabetes which was helpful. Patient continued to be active inside his house. He remains on Eliquis. BR-IPSS score is very low. Counts remain stable. 01/30/2023. CBC showed a white count of 2.6 with hemoglobin 8.7 hematocrit 27.1 and a platelet count 97,000. MCV was 115. White blood cell differential count showed that he had an absolute neutrophil count of 1.36. 02/09/2023. CBC showed a white count of 2.5 with a hemoglobin 9.0 hematocrit of 27.7 with a platelet count of 92,000. MCV was 114. 02/16/2023. Follow-up with Elaine Betts APRN. Even though his hemoglobin had dropped to 9 the patient did not want to start his erythropoietin injections. 03/12/2023. CBC showed white count of 2.5 with a hemoglobin of 7.6 hematocrit 23.8 and a platelet count of 101,000. Absolute neutrophil count was 1.17. 03/16/2023 through 03/20/2023. Admitted to the hospital with anemia and generalized weakness black stools dizziness with a hemoglobin of 6.7. His BUN was [address] scan of the abdomen showed no acute process. There were findings consistent with atypical healing of the previous rib fracture with question Paget's disease although it was nonspecific. He was transfused 2 units packed red blood cells. EGD found 3 erosions in the cardia. He was prescribed Carafate. 03/25/2023. Follow-up with Dr. Dr. العراقي after discharge. CBC showed white count 1.9 with hemoglobin 8.6 hematocrit 28.3 and a platelet count of 140,000. Absolute neutrophil count was 1.06. Patient did not tolerate Carafate and stopped it. He was prescribed oral iron twice a day. He had not been prescribed a PPI which was then started. 04/02/2023. CBC showed white count of 1.9 with hemoglobin 7.7 hematocrit 24.8 and a platelet count of 87,000. 04/14/2023. CBC showed a white count of 1.9 with hemoglobin of 8.7 hematocrit 28.1 and platelet count of 89,000. 04/24/2023. Followed up with Dr. Dr. العراقي who reported that he was hospitalized again in [place] for GI bleed. At that time his Eliquis was discontinued and he was changed to Protonix and taken off his baby aspirin. Once again he was started on Carafate but did not tolerate it. 05/16/2023. CBC showed white count of 2.4 with hemoglobin 9.2 hematocrit 27.3 and a platelet count of 110,000. Absolute neutrophil count was 1.36. 05/18/2023. Follow-up with Elaine Betts. The patient had recently had a colonoscopy and had cauterizations he noted that he had dyspnea with exertion but no resting shortness of breath. He was on prednisone at that time. His sugars were in the 300s. He was on insulin. 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 Current level was found to be saturated. Once again the patient was reluctant to start CHRISTIE. 06/15/2023. Follow-up with Elaine Betts. CBC showed white count 1.8 with a hemoglobin 8.9 hematocrit 26.9 and a platelet count of 100,000. Absolute neutrophil count was 0.96. 07/08/2023. CBC showed a white count of 1.8 with hemoglobin 9.5 hematocrit 28.8 and a platelet count of 85,000 with an absolute neutrophil count of 0.99. 07/15/2023. Follow-up with Dr. Rick. PSA has gone down to 1.87. 08/10/2023. Follow-up with Elaine Betts who noted the patient remained on oxygen and CPAP. He says that he is awakening in the middle of the night around 3 to 4:00 in the morning. Sugars have been in the 300s. Neuropathy was unchanged. He had been started on erythropoietin every 3 weeks 09/22/2023. Follow-up with Elaine Betts. No improvement in his hemoglobin. White count had improved to 2.1 platelets were baseline. He had been placed on 40 mg of prednisone and continued on erythropoietin 300 mcg every 3 weeks. 11/03/2023. Follow-up with Elaine Betts. No improvement in hemoglobin. Symptomatically he was doing well. Plan was to increase frequency of his darbepoetin to every 2 weeks. 12/15/2023. Follow-up with Elaine Betts. Now on erythropoietin injections every 2 weeks. There was a discussion concerning repeat bone marrow biopsy with counts stayed low. 01/12/2024. Follow-up with Elaine Betts. No improvement in his hemoglobin. Patient was agreeable to repeat bone marrow biopsy. She also ordered a CAT scan of the chest abdomen and pelvis without contrast. 01/22/2024. CAT scan showed severe coronary artery calcifications. There is evidence of bronchiectasis in the lower lobes increased compared to previous CT scan from 2020. Predominantly groundglass opacities with bibasilar prominence. There is some subpleural sparing of the left upper lobe. There is a 3 mm nodule in the right upper lobe which was unchanged for several years. 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 There is a small fat-containing periumbilical hernia and bilateral inguinal hernias. Spleen size is at the upper limits of normal being 12.7 cm in length slightly increased when compared to study from 2019. Cysts were seen in the kidneys with diffuse cortical atrophy and a 4 mm hyperdense focus in the interpolar region of the right kidney possibly a stone. Prostatism was noted for gland measuring 6.2 cm. 01/28/2024. Seen by Dr. Harp for shortness of breath. He felt the patient had possible chronic interstitial lung disease versus periodic aspiration, hypoxia dyspnea on exertion. Further tests were ordered including high-resolution CT scan, complete pulmonary function testing, simple pulmonary stress test and follow-up. 02/09/2024. Follow-up with Elaine Betts. Erythropoietin injections continued every 2 weeks which the patient was tolerating well. 02/16/2024. Bone marrow biopsy was performed showing a hypercellular bone marrow at 50% with dyserythropoiesis. There are 1% blasts consistent with persistent myeloid neoplasm. Flow cytometry showed a small clonal CD5 negative, CD10 negative B-cell population and a polytypic background. 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 There was a very small abnormal T-cell population that could be incidental. Next generation sequencing showed 2 U2AF 1 variants, 1 of which was negative. The other had been previously seen. The marrow also showed dyserythropoiesis with bilobate forms and forms with irregular nuclear contours as well as blebbing. 02/23/2024. CBC showed white count 1.5 with a hemoglobin of 8.3 hematocrit 25.9 and platelet count of 71,000 with 37% neutrophils, 53 lymphocytes, 4 monos, 4 eosinophils with an absolute neutrophil count of 0.57. 02/24/2024. Return visit with Dr. Harp. He noted that the high-resolution CT scan showed no significant change from the previous CT scan the month before. Pulmonary function testing showed no response to bronchodilator and there was mild restrictive change with some suggestion of airway inflammation. The patient had difficulty doing the test because of persistent coughing. 6-minute walk test showed that the patient was able to maintain saturations at 93% with 2 L of oxygen per minute continuously. The test was terminated because of dyspnea. With his hypoxia on room air it was recommended that he be on oxygen continuously to keep his saturation greater than or equal to 92%. He continued on oxygen with his CPAP at 3 L at nighttime. 03/11/2024. This is my first visit with Mr. Chaves and his family. We went over some of the results of the bone marrow biopsy. I told him that I would have to wait until the chromosomal analysis returned. I also note the possibility of low-grade lymphoma. He may need to have an opinion with malignant hematology at [facility]. Stepdaughter who is here with him and his today is his advocate for maintaining his quality of life. She is an employee at a local nursing facility and is concerned about many clients she has who seem to be getting treated aggressively. 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 He will continue on this treatment for now. He is low counts were discussed and he knows that he is at higher risk for infection and bleeding. He continues on oxygen supplementation continuously. They will return in 2 weeks at which time laboratory tests will be performed. He just had a lesion removed from the dorsum of his right hand at the base of his first and second fingers. Stitches are still in place. It seems to be healing well without any significant bleeding or infection. He was told that it looked benign. 03/14/2024. Follow-up with Dr. Vianney Judge of cardiology who saw him in follow-up of his coronary artery disease with multiple stents having been placed, hypertension, dyslipidemia and previous pulmonary embolus related to COVID-19. She had stopped his Eliquis. 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 She noted that at some point his aspirin had been stopped but given his history of stents this was restarted and he tolerated it well. She said that his blood pressure was well-controlled. She noted blood sugars were between 150-2 50. She noted the patient was supposed to be using oxygen with exertion but the patient was not sure what rate it was supposed to be. She says that she would not stop his aspirin unless his platelets were less than 50,000 with complications of bleeding. She said it was very important to continue aspirin given a 15% chance of in-stent thrombosis with aspirin cessation. She increased her furosemide to 80 mg twice a day because of bilateral lower extremity edema and spironolactone to 25 mg twice daily until symptoms improve and encouraged him to cut back on his salt intake. She was see him again in about 9 months. 03/15/2024. Follow-up with Dr. Adams of ophthalmology who started him on Naphcon-A drops 1 drop 3 times a day in both eyes for excessive tearing 03/16/2024. Followed up with Dr. Robert Mortensen of podiatry who noted decreased pedal pulses 2 out of 4. He had footcare. 03/25/2024. Follow-up with Dr. Harp. Review of his x-rays showed no change. Physical examination showed decreased breath sounds but no inspiratory crackles that were previously heard. 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 He plan to repeat CT scan in July. 03/25/2024. He is here to follow-up on his bone marrow results. I told him that the chromosomal analysis would not be forthcoming before because the specimen failed to grow in culture. 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 We reviewed the fact that he is recommended to have at least 6 months of his erythropoietin before we decide whether or not it is a failure. He is agreeable to this. We will increase his dose of darbepoetin. He knows to be on the look out for any signs of infection or bleeding and to report this if it happens. We reviewed his most recent CBC. We will see him again in 2 weeks with his next injection. 03/31/2024. Follow-up with Dr. Dr. العراقي for his Medicare wellness visit. His magnesium dose was changed to twice daily indefinitely. 04/08/2024. He is here today for his darbepoetin injection. We have increased his dose to 500 mcg every 2 weeks. Will see if this has any effect. Laboratory dated today shows that his sugar is 290 and his sodium is 134. BUN is 46 and creatinine is 2.31. CBC shows white count 1.5 with a hemoglobin 8.1 hematocrit 24.7 and a platelet count of 71,000 which is very much like his most recent CBC. His absolute neutrophil count is 0.57. I talked to him about his current status which he feels is fairly stable. He is off oxygen. He has had no bleeding and no signs of infection. He understands that we have increased his dose of darbepoetin and we will watch his counts. He will report any side effects. He has continued to receive his darbepoetin injections. 05/16/2024. Emergency department [facility]. He developed a rash on both lower extremities which started a week ago which is an erythematous papular rash. He denied any pain or itching. He did not have any vesicle formation. It is bilateral. He has had a shingles injection. He was told that he had disseminated zoster and was started on valacyclovir a gram twice daily for 7 days. 05/20/2024. Seen by Dr. Dr. العراقي who said that the rash has not gotten any worse and might be a little bit better. She noted that there were no vesicles no open areas no areas of secondary infection. 05/20/2024. He is here to receive his erythropoietin injection and to have a blood count. I told him it is not likely that this is disseminated zoster because it is nowhere else on his body but only on his lower extremities. This could be stasis dermatitis. I do not see any signs of vesicle formation and there never were any. It is mostly on the anterior shins. It is all below the knee. CBC today shows white count 1.4 with hemoglobin 8 hematocrit 25.4 platelet count 67,000 with 37 neutrophils 53 lymphocytes 5 monos 2 eosinophils. He is serum chemistry showed a sugar of 285 BUN of 49 creatinine of 2.67. We told him he needed to keep his hydration status high. He will continue with his injections today. Blood pressure today is 153/64. He has had no bleeding and no infection. He has had no chest pain or pressure. He is able to participate in his usual activities including mowing the yard. He has continued to receive his darbepoetin and has followed up with podiatry for nail and callus care. 07/01/2024. He is here in routine follow-up. He says that he is doing well. He has had no infections or bleeding. He has had no mouth sores. He has had continued swelling in his legs a little bit worse on the left than on the right. Blood sugar was greater than 300 but he admits to dietary indiscretion. Has had no chest pain. His blood pressure was 149/63. He says that his breathing is stable. He is using his oxygen at home at night and when he travels that he does not have it on today. His lab data has shown no sign of improvement so far with white count 1.3, hemoglobin 8.6 hematocrit 27.2 and a platelet count of 69,000. White blood cell differential count shows 38% polys, 50 lymphs, 5 monos, 2 eosinophils. We plan a 6-month trial of this dose of darbepoetin which will extend until September. We will see him again in about a month. Interval Note 07/06/2024. CT scan of the chest showed mild streaky scarring in the lung bases bilaterally. The previously seen groundglass opacities probably be minimally improved. Calcified pleural plaques are seen without consolidation effusion or pneumothorax. There is no adenopathy seen by CT size criteria. Minimal hepatic steatosis was seen as well as calcified granuloma in the spleen and a somewhat atrophic pancreas. DJD was seen in the spine. 07/07/2024. Seen by Dr. 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 He noted myelodysplasia and that he was being followed for his anemia receiving CHRISTIE. He did not change any of his medications And said that he would see him again in about 6 months 07/12/2024. Follow-up by Dr. Harp at which time he told the patient he could decrease his oxygen to 2 and he would repeat a CT scan in 6 months and see him after that. 07/29/2024. He is here today in routine follow-up. He will get his shot today. Laboratory data shows no improvement. We reviewed that we will follow him for 6 months on this treatment to see if there is any improvement. Mr. Hernandez says that he has had no significant bleeding. I see some red spots on the soft palate. His appetite has been good and he has gained weight of 1 pound since last time I saw him about a month ago. He has had no other signs of infection or deterioration in his status. He knows he is at risk for serious infection or bleeding. We will continue on this treatment pathway. He will see him again in a month. 08/26/24: Seen in office today by CHUCK. Appetite is decent denies any early satiety weight is stable. Energy varies day to day. 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 Isolated episode of a nose bleed. He reported waking up last night sweaty and hot, unaware if he was running a fever, encouraged him to check temperature if this should re-occur. Denies any further B symptoms. No serious abnormal bleeding, remains bruising easily. Reviewed labs very minimal improvement in his labs, will continue with administering the shot today as ordered. Will continue to monitor patient closely, with a follow-up in a month. 09/23/24: Patient was recently in the ED for tremors. He reports he didn't feel well/didn't feel right. Head/Brain CT, EKG,- were normal in findings. Patient is here today and feels better he reports increasing numbness/tingling in bilateral hands, chronic back pain. Denies headaches, vision changes. Denies any fever, nausea, vomiting. Reports sweating at night on his bilateral legs, denies any restless leg symptoms. Denies any abnormal bruising or bleeding. Appetite is good, unchanged. Energy remains poor. 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 Wears continuous oxygen at home, CPAP w/oxygen at night. Chronic productive cough in the am. 10/24/24: Patient is tolerating darbopoetin well. He reports that his energy could be better, someday's are better than others. Remains to have the tremors, right hand is worse than his left, he has yet to schedule with Neurology. Currently treating left foot/ankle for cellulitis, remains taking Keflex daily. Patient report that it is healing well. However has has a rash on his left leg. Continues wearing compression stockings. Feeling better today. 12/05/24: Patient is in office for routine follow-up. He remains to have unchanged chronic fatigue. He denies any fevers, drenching night sweats, abnormal weight loss. LLE edema, he reports the left leg remains more swollen and discoloration no open wounds of signs of cellulitis. His labs essentially show no improvement. Discussed consideration for repeat Bone Marrow and second opinion for a more aggressive treatment options vs continuing current CHRISTIE Treatment. He wishes to continue on CHRISTIE at this time, he is very reluctant on further testing/ treatment. Discussed continuing on CHRISTIE and support treatment as needed. 01/02/25: Patient is in office today for consideration of darbopoetin. Patient is wearing his oxygen at home more frequently, denies using when he is not at home, unless he will be doing a lot of walking. Episodes of lightheadedness a few times weekly. Edema is better but reports increasing weakness in bilateral legs. Bilateral upper extremity numbness/ weakness. No fevers, legs sweat during the night. Chilled all the time. Eating and drinking well. No GI or Urinary issues.Chronic cough in the am, white/clear phlegm. Denies any abnormal bleeding or bruising. Overall reports he is feeling pretty good today. Objective BSA: 2.21 meters squared BP 126/55 Pulse 68 Temp 35.8 C (96.4 F) (Skin) Resp 20 Wt 103 kg (227 lb 12.8 oz) SpO2 94% BMI 35.68 kg/m Physical Exam Vitals and nursing note reviewed. Constitutional: Appearance: Normal appearance. He is obese. HENT: Head: Normocephalic and atraumatic. Nose: Nose normal. Mouth/Throat: Mouth: Mucous membranes are moist. Pharynx: Oropharynx is clear. Eyes: General: No scleral icterus. Extraocular Movements: Extraocular movements intact. Conjunctiva/sclera: Conjunctivae normal. Cardiovascular: Rate and Rhythm: Normal rate and regular rhythm. Pulses: Normal pulses. Heart sounds: Normal heart sounds. Pulmonary: Effort: Pulmonary effort is normal. Breath sounds: Decreased breath sounds present. Abdominal: General: There is distension. Palpations: Abdomen is soft. Tenderness: There is no abdominal tenderness. Musculoskeletal: General: Swelling present. Normal range of motion. Cervical back: Normal range of motion. Skin: General: Skin is warm and dry. Coloration: Skin is pale. Findings: Bruising present. Neurological: General: No focal deficit present. Mental Status: He is alert and oriented to person, place, and time. Motor: Weakness present. Psychiatric: Mood and Affect: Mood normal. Behavior: Behavior normal. Thought Content: Thought content normal. Judgment: Judgment normal. Performance Status: Symptomatic; fully ambulatory Assessment/Plan 1. Pancytopenia. The patient has unusual bone marrow findings. Chromosomal analysis will not be done due to failure of the specimen to grow. 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 He is not responding to erythropoietin. We will increase his dose to 500 mcg every other week. He continues to be at high risk for bleeding and infection with a low ANC and low platelet count. He has had previous GI bleeds. He is currently back on his aspirin per follow-up with Dr. Judge for fear of clotting off his stents. He is off Eliquis. He will get his treatment today with darbepoetin and continue every 14 days. We plan for 6-month trial which will take us to September. 01/04/25: Patient wishes to remain on CHRISTIE at this time. Discussed repeating bone marrow and referral to Dr. Gomez which he was reluctant to agree to such. Discussed continue on CHRISTIE is reasonable given his age and comorbidities. We will continue with this treatment plan for the time being and support as needed. He denies any abnormal bleeding, no signs of infections or B symptoms. Overall feeling well today. Labs reviewed: Hemoglobin 8.6, WBC 1.5, ANC 0.60, Lymphocytes 0.75 Platelets 66K BUN 57, Creat 2.86, GFR 20 Calcium 8.5 Will plan to proceed with CHRISTIE today. Continue consideration for CHRISTIE every 2 weeks, return to see provider in 6 weeks. 2. Multiple comorbidities. 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 3. Rash on his legs. I think this looks more like stasis dermatitis than disseminated zoster. If it were disseminated zoster he would have it on other areas of his body. Plan: Discussed and reviewed medical history Stat Labs today, waiting for results Discussed repeat bone marrow biopsy, patient deferred at this time Discussed checking nutritional labs (Iron, B12, Folate and Vitamin D) At this time we will continue on Darbopoetin, discussed medication is keeping him from requiring a transfusion, however his counts continue to drop and not improve as we had hoped Will repeat labs in 2 weeks, with consideration for treatment Return to see provider in 4-6 weeks He knows that he should call in the interim should he have any change in his SOY [facility] Labs drawn- sent to lab stat- pt got his Darbepoetin injection today after his OV 01/16 9am lab and darbepoetin 01/30 2pm lab and darbepoetin 02/13 9am LIZZ marvin to draw labs on arrival 930 Darbepoetin to follow Reviewed AVS with patient- patient verbalizes understanding documented in this encounter [facility] Work Phone: 01-02-2025 Instructions SOY Paulson - 01/02/2025 9:00 AM EST Discussed and reviewed medical history Stat Labs today, waiting for results Discussed repeat bone marrow biopsy, patient deferred at this time Discussed checking nutritional labs (Iron, B12, Folate and Vitamin D) At this time we will continue on Darbopoetin, discussed medication is keeping him from requiring a transfusion, however his counts continue to drop and not improve as we had hoped Will repeat labs in 2 weeks, with consideration for treatment Return to see provider in 4-6 weeks ks documented in this encounter [facility] Work Phone: 12-30-2024 Note Nail care Patient is a pleasant 89-year-old gentleman who comes in today for at risk nail care. His diabetes is managed by primary including Jae Gannon, A1c unknown. Thinks it is 7% though but he is just not sure. Physical Vascular: DP pulses are palpable 2 out of 4 bilaterally. PT pulses are nonpalpable bilaterally. CFT is delayed with mild foot and ankle edema pitting in nature +1. Hair growth is absent bilaterally. Skin is shiny atrophic dysvascular. Nails [id number] left foot and [id number] right foot are markedly elongated thickened mycotic crumbling and dystrophic. Neuro: Sharp dull is blunted Babinski's is blunted. Musculoskeletal: Muscle strength is 5/5 with fair tone. Can easily wiggle toes without any clicking or catching. Derm: Mild hyperkeratosis plantar medial heel right and left no flaking or loss no deep nodules. Assessment and plan: Patient is a pleasant diabetic male with age and diabetic induced peripheral arterial disease and onychomycosis to 10 nails. -He does qualify for nail care given his elevated risk with arterial disease. -Procedure: Sharply debrided and debulk in height and length 10 onychomycotic nails with a sharp pair of nail nippers consistent with a q8 modifier Follow-up in 3 months for foot nail care. AUTHENTICATED BY ROBERT MORTENSEN JR., ON 12/30/2024 10:58:08 [facility] 12-30-2024 History of Present illness Narrative Nail care Patient is a pleasant 89-year-old gentleman who comes in today for at risk nail care. His diabetes is managed by primary including Jae Gannon, A1c unknown. Thinks it is 7% though but he is just not sure. Physical Vascular: DP pulses are palpable 2 out of 4 bilaterally. PT pulses are nonpalpable bilaterally. CFT is delayed with mild foot and ankle edema pitting in nature +1. Hair growth is absent bilaterally. Skin is shiny atrophic dysvascular. Nails [id number] left foot and 95823 right foot are markedly elongated thickened mycotic crumbling and dystrophic. Neuro: Sharp dull is blunted Babinski's is blunted. Musculoskeletal: Muscle strength is 5/5 with fair tone. Can easily wiggle toes without any clicking or catching. Derm: Mild hyperkeratosis plantar medial heel right and left no flaking or loss no deep nodules. Assessment and plan: Patient is a pleasant diabetic male with age and diabetic induced peripheral arterial disease and onychomycosis to 10 nails. -He does qualify for nail care given his elevated risk with arterial disease. -Procedure: Sharply debrided and debulk in height and length 10 onychomycotic nails with a sharp pair of nail nippers consistent with a q8 modifier Follow-up in 3 months for foot nail care. documented in this encounter [facility] 12-15-2024 Evaluation note Diagnosis Onset Date Resolution Anemia in chronic illness chronic December 15, 2 025 8:58am Cirrhosis chronic December 15, 2024 8:58am Gastric ulcer chronic December 152024 8:58am Stage 4 chronic kidney disease chronic December 15, 2 025 8:58am Anemia in chronic illness chronic March 28, 2025 1 0:43am Cirrhosis chronic March 28, 2025 10:43am Gastric ulcer chronic March 28 025 10:43am [facility][1] Services Work Phone: 1([phone]) 320-692701-15-2025 History of Present illness Narrative* Mariah Can MD - 11/16/2024 1:30 PM EST Neurology Outpatient Consult [facility] [address] [place] [address] (phone)/[phone] (fax) Patient: Jewel Chaves Date of : 1935 Primary Care Provider: Palmira العراقي MD Assessment/Plan: Patient with chronic history of tremors affecting both upper extremity since his 20s. He was diagnosed to have essential tremor. He was initially seen and evaluated by neurology in [facility]. He was prescribed Mysoline currently taking a dose of 150 mg twice a day. He denies any side effects of the medication but unable to tolerate higher dosages. He also takes gabapentin 300 mg twice a day which he does not know the indication. I suspect it might be prescribed for polyneuropathy or may be for his tremors. He rarely has paresthesias on his feet. He complains of bipedal edema which may be from gabapentin. Patient developed insomnia with primidone at night and able to tolerate even with low doses. He mention developing intermittent tremors of the lateral aspect of the fingers more on the leftside than the right side. Thinking it may be from his primidone, the medication was discontinued and his symptoms appears to improve. He has been on primidone for a while and I doubt the medication has caused his numbness of the fingers. He has chronic numbness on the left thumb and around October2024 noticed it on the right thumb. 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 He also has bilateral ulnar neuropathy. He is reluctant to see orthopedic for injection or surgery. I suggest using wrist splint and doing exercises to maintain strength. Keep elbow straight to help with ulnar neuropathy. He denies any symptoms of neck pain or radicular pain. Labs/Imaging/Ancillary test: TSH was normal. 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 Right ulnar nerve entrapment across the elbow without axonal damage. Non localizable left ulnar neuropathy. 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 Keep elbow straight as much as possible. Regular exercise and monitor for any increased weakness. Please call if agreeable to refer to orthopedic surgery. May continue primidone 50 mg at night for essential tremor. The dose may be increased as needed if tolerated. Avoid caffeinated beverages. May use heavier utensils or wrist weights when eating. Avoid trigger factors or precipitating factors. Will see him for follow-up visit as needed. Diagnostic impression, plans, and suggestions were explained and discussed. Records from the referring physician were reviewed. Clinical imaging study/ labs/medical tests were ordered/reviewed. Indications, risk, complications, side effects and alternatives of medications/therapeutics were explained and discussed. Please monitor closely for any untoward side effects or complications of medications. Questions and concerns were addressed. Please call or contact us for any problems. This note was created in part using a speech-recognition software. Time Code: 32 minutes 1. Preparation for patient's visit (reviewing previous chart, current medical records, previous history, exam, tests, procedures, and medications) 2. Face to face encounter obtaining history from the patient/family/caregivers; performing evaluation and examination; discussing tests and procedure results, medications and therapeutic options, side effects and complications of medications and procedures. Ordering medications, tests, or procedures; referring and communicating with other physicians, healthcare professionals; counseling and education of the patient/family/caregiver; independently interpreting results (tests, labs, procedures, imaging) and communicating and explaining results to the patient/family/caregiver. 3. Coordination of care; preparing and printing discharge instruction and any educational material for the patient and caregivers. Documenting clinical information in the electronic and other health records. Reviewing OARRS as needed. Orders Placed This Encounter RIO WRIST SPLINTDJ Subjective (CC/HPI): Patient came for follow-up neurological evaluation accompanied by his . He was initially referred because of tremors. His tremors affecting both upper extremities and more noticeable when he do things like eating or writing. This started around age 20 and has been noticeable over the years. He was initially seen and evaluated by neurology in [facility]. He was started on Mysoline with the current dose of 150 mg twice a day. The dose was increased to 175 mg twice a day. He developed some numbness of the fingers on the lateral aspect more on the left side for years. Thinking it may be secondary to Mysoline, the medications was held. This did not help. He restarted primidone 50 mg at night. Around October 2024, he noticed numbness of the right thumb. He denies any motor weakness. He is reluctant to be referred to surgery. He developed insomnia with low-dose of propranolol taking only 20 mg twice a day. He does not take gabapentin 300 mg twice a day. He is not sure the indication for the medication. He does have history of pedal edema but no numbness, paresthesias or dysesthesias on his feet. He denies any trigger fac tors or precipitating factors for his tremors. He drinks 1 to 2 cups of coffee daily which does notaffect his tremors. There is no history of anxiety, depression, COPD, or CHF. He denies any rigidity, stiffness, but occasionally gets constipation. No history of head injury, TIA, stroke, or seizure. Past medical history include: Hypertension, hyperlipidemia, gout, pulmonary embolism, osteoarthritis, coronary artery disease, COVID-19 infection, BPH, diabetes mellitus Social history: No alcohol, tobacco, recreational drug use. Family history: Positive for cancer and liver disease. ROS: All systems reviewed and negative except pertinent positives and negatives documented in the HPI and below. Objective: BP (!) 103/47 (BP Location: Left arm, Patient Position: Sitting, BP Cuff Size: X-large Adult) Pulse 84 Resp 16 SpO2 91% Patient awake and alert. Patient is oriented. Attention and comprehension were intact. Behavior is appropriate. Follows simple commands. Speech is fluent and spontaneous. Language is intact. Pupils are 4 mm equally reactive to light. No ptosis, nystagmus, or gaze deviation. Extraocular muscles intact. Face is symmetrical. Hearing is grossly intact. Gross strength is intact with normal muscle tone and bulk. No muscle fasciculations. Patient with bilateral upper extremity coarse resting, postural and kinetic tremors. No rigidity, bradykinesia, hypomimia, or abnormal movements. Negative Tinel's sign. documented in this [id number] NoteNeurology Outpatient Consult [facility] [address] [place] [address] (phone)/[phone] (fax) Patient: Jewel Chaves Date of : 1935 Primary Care Provider: Palmira العراقي MD Assessment/Plan: Patient with chronic history of tremors affecting both upper extremity since his 20s. He was diagnosed to have essential tremor. He was initially seen and evaluated by neurology in [facility]. He was prescribed Mysoline currently taking a dose of 150 mg twice a day. He denies any side effects of the medication but unable to tolerate higher dosages. He also takes gabapentin 300 mg twice a day which he does not know the indication. I suspect it might be prescribed for polyneuropathy or may be for his tremors. He rarely has paresthesias on his feet. He complains of bipedal edema which may be from gabapentin. Patient developed insomnia with primidone at night and able to tolerate even with low doses. He mention developing intermittent tremors of the lateral aspect of the fingers more on the left side than the right side. Thinking it may be from his primidone, the medication was discontinued and his symptoms appears to improve. He has been on primidone for a while and I doubt the medication has caused his numbness of the fingers. He has chronic numbness on the left thumb and around October 2024 noticed it on the right thumb. 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 He also has bilateral ulnar neuropathy. He is reluctant to see orthopedic for injection or surgery. I suggest using wrist splint and doing exercises to maintain strength. Keep elbowstraight to help with ulnar neuropathy. He denies any symptoms of neck pain or radicular pain. Labs/Imaging/Ancillary test: TSH was normal. 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 Right ulnar nerve entrapment across the elbow without axonal damage. Non localizable left ulnar neuropathy. 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 Keep elbow straight as much as possible. Regular exercise and monitor for any increased weakness. Please call if agreeable to refer to orthopedic surgery. May continue primidone 50 mg at night for essential tremor. The dose may be increased as needed if tolerated. Avoid caffeinated beverages. May use heavier utensils or wrist weights when eating. Avoid trigger factors or precipitating factors. Will see him for follow-up visit as needed. Diagnostic impression, plans, and suggestions were explained and discussed. Records from the referring physician were reviewed. Clinical imaging study/ labs/medical tests were ordered/reviewed. Indications, risk, complications, side effects and alternatives of medications/therapeutics were explained and discussed. Please monitor closely for any untoward side effects or complications of medications. Questions and concerns were addressed. Please call or contact us for any problems. This note was created in part using a speech-recognition software. Time Code: 32 minutes 1. Preparation for patient's visit (reviewing previous chart, current medical records, previous history, exam, tests, procedures, and medications) 2. Face to face encounter obtaining history from the patient/family/caregivers; performing evaluation and examination; discussing tests and procedure results, medications and therapeutic options, side effects and complications of medications and procedures. Ordering medications, tests, or procedures; referring and communicating with other physicians, healthcare professionals; counseling and education of the patient/family/caregiver; independently interpreting results (tests, labs, procedures, imaging) and communicating and explaining results to the patient/family/caregiver. 3. Coordination of care; preparing and printing discharge instruction and any educational material for the patient and caregivers. Documenting clinical information in the electronic and other health records. Reviewing OARRS as needed. Orders Placed This Encounter COCKMELODIE WRIST SPLINT,DJ Subjective (CC/HPI): Patient came for follow-up neurological evaluation accompanied by his . He was initially referred because of tremors. His tremors affecting both upper extremities and more noticeable when he do things like eating or writing. This started around age 20 and has been noticeable over the years. He was initially seen and evaluated by neurology in [place] (more content not included)...[facility]01-15-2025 Instructions* Patient Instructions* Mariah Can MD - 11/16/2024 12:53 PM EST May use wrist splint at night. Keep elbow straight as much as possible. Regular exercise and monitor for any increased weakness. Please call if agreeable to refer to orthopedic surgery. May continue primidone 50 mg at night for essential tremor. The dose may be increased as needed if tolerated. Avoid caffeinated beverages. May use heavier utensils or wrist weights when eating. Avoid trigger factors or precipitating factors. Will see him for follow-up visit as needed. documented in this [id number] Evaluation + Plan note* Assessment & Plan Note - SOY Easley DNP - 11/03/2024 11:15 AM EST Associated Problem(s): Stage 4 chronic kidney disease (Multi) Renal function stable with creatinine of 2.62, he is staying within his baseline, blood pressure iswell-controlled, diabetes not well-controlled with hemoglobin A1c of 10, not using nephrotoxic medications, minimal benefit of adding SGLT2 for kidney disease, could be considered for better diabetescontrol [facility] Work Phone: 1(819) 966-371501-02-2025 Miscellaneous Notes* Assessment & Plan Note - SOY Easley DNP - 11/03/2024 11:15 AM ESTAssociated Problem(s): Stage 4 chronic kidney disease (Multi) Renal function stable with creatinine of 2.62, he is staying within his baseline, blood pressure iswell-controlled, diabetes not well-controlled with hemoglobin A1c of 10, not using nephrotoxic medications, minimal benefit of adding SGLT2 for kidney disease, could be considered for better diabetescontrol * Assessment & Plan Note - SOY Easley DNP - 11/03/2024 11:14 AM EST Associated Problem(s): Type 2 diabetes mellitus with stage 4 chronic kidney disease, with long-termcurrent use of insulin (Multi) Diabetes is difficult to control, last hemoglobin A1c 10.0 * Assessment & Plan Note - SOY Easley DNP - 11/03/2024 11:11 AM EST Associated Problem(s): Hypertension Blood pressure is well-controlled on amlodipine, metoprolol, spironolactone [facility] Work Phone: 1(999) 310-300701-02-2025 Evaluation + Plan note* Assessment & Plan Note - SOY Easley DNP - 11/03/2024 11:14 AM ESTAssociated Problem(s): Type 2 diabetes mellitus with stage 4 chronic kidney disease, with long-termcurrent use of insulin (Multi) Diabetes is difficult to control, last hemoglobin A1c 10.0 [facility] Work Phone: 1(250) 126-652301-02-2025 Evaluation + Plan note* Assessment & Plan Note - SOY Easley DNP - 11/03/2024 11:11 AM ESTAssociated Problem(s): Hypertension Blood pressure is well-controlled on amlodipine, metoprolol, spironolactone [facility] Work Phone: 1(755) 408-929401-02-2025 History of Present illness Narrative* SOY Easley DNP - 11/03/2024 11:00 AM EST Subjective Patient ID: Jewel Chaves is a 89 y.o. male who presents for Follow-up (3 month ck/Review labs ). Patient being seen in follow-up for chronic kidney disease stage IIIb/IV with history of hypertension and diabetes mellitus Labs reviewed Albumin creatinine ratio 102.0 Urine positive for leukocyte esterase 75 with microscopic showing 11-20 WBCs and occasional hyalinecast Glucose 151 Sodium 140, potassium 4.5, chloride 103, bicarb 28 Renal function the BUN of 52 and creatinine of 2.62, GFR is 23 Calcium 9.1 He states that he got the flu bug on Thursday and has not been feeling well Predominantly has been respiratory with a cough Has not had any diarrhea or vomiting however he did have a decrease in his appetite He has had improvement in the swelling of his left lower leg and his wound is healing well He has had 2 falls recently and denies any lightheadedness or dizziness with these, once he states he was in the [place] and it was dark and he lost his balance, the other time he was in the bathroom and turned around too quickly Review of Systems Constitutional: Negative. Respiratory: Positive for cough. Cardiovascular: Negative. Gastrointestinal: Negative. Endocrine: Negative. Genitourinary: Negative. Musculoskeletal: Negative. Skin: Negative. Neurological: Negative. Psychiatric/Behavioral: Negative. Objective Physical Exam Vitals reviewed. Constitutional: Appearance: Normal appearance. HENT: Head: Normocephalic. Cardiovascular: Rate and Rhythm: Normal rate and regular rhythm. Pulmonary: Effort: Pulmonary effort is normal. Breath sounds: Normal breath sounds. Abdominal: Palpations: Abdomen is soft. Musculoskeletal: General: Normal range of motion. Right lower leg: Edema present. Left lower leg: Edema present. Skin: General: Skin is warm and dry. Neurological: Mental Status: He is alert and oriented to person, place, and time. Psychiatric: Mood and Affect: Mood normal. Behavior: Behavior normal. Assessment/Plan Problem List Items Addressed This Visit ICD-10-CM Type 2 diabetes mellitus with stage 4 chronic kidney disease, with long-term current use of insulin(Multi) E11.22, N18.4, Z79.4 Diabetes is difficult to control, last hemoglobin A1c 10.0 Hypertension I10 Blood pressure is well-controlled on amlodipine, metoprolol, spironolactone Stage 4 chronic kidney disease (Multi) - Primary N18.4 Renal function stable with creatinine of 2.62, he is staying within his baseline, blood pressure iswell-controlled, diabetes not well-controlled with hemoglobin A1c of 10, not using nephrotoxic medications, minimal benefit of adding SGLT2 for kidney disease, could be considered for better diabetescontrol Relevant Orders Follow Up In Nephrology - CKD IV with baseline creatinine 2.3-2.8 - Hypertension on amlodipine, Metoprolol, Furosemide - Diabetic Nephropathy: - Diabetes mellitus type 2 on insulin - Bilateral lower extremity edema: Stable. - Pulmonary embolism on Eliquis - Obesity - Obstructive sleep apnea on CPAP machine and compliant - Hyperlipidemia on a statin - History of coronary artery disease on Plavix and aspirin. - B/L Renal Cyst - Hyperuricemia SOY Easley DNP 11/03/24 10:46 AM documented in this [facility] Work Phone: 1(543) 272-925412-30-2024 History of Present illness Narrative* Palmira العراقي MD - 10/31/2024 4:00 PM EST Subjective Jewel Chaves is a 89 y.o. male who presents for Follow-up (ER follow up from [facility]- Left lower leg swollen/red. Notes from [facility] faxed to our office for review. ). Here for follow up recent ER visit for leg redness. He has been on some antibiotics for cellulitis,but the rash hasn't changed significantly. The ER note mentions that the rash may be due to his thrombocytopenia. He states that he thinks he has the flu now. He had some shakes pretty bad yesterday. No fevers/chills. He has had some mild cough, runny nose. Symptoms started yesterday. No know sick contacts. Objective Visit Vitals BP 126/74 Pulse 93 Physical Exam Vitals reviewed. Constitutional: General: He is not in acute distress. Cardiovascular: Rate and Rhythm: Normal rate and regular rhythm. Heart sounds: No murmur heard. Pulmonary: Effort: Pulmonary effort is normal. No respiratory distress. Breath sounds: Normal breath sounds. Skin: General: Skin is warm and dry. Comments: There is mild erythema and mild swelling of the left lower leg. Neurological: General: No focal deficit present. Mental Status: He is alert. Mental status is at baseline. Assessment/Plan Problem List Items Addressed This Visit None Visit Diagnoses Upper respiratory tract infection, unspecified type - Primary Rash Palmira العراقي MD documented [facility] Work Phone: 1([phone]) 669-990612-30-2024 Instructions* Patient Instructions* Palmira العراقي MD - 10/31/2024 4:00 PM EST Discussed getting a flu test but he declines at this time. Will treat symptomatically for now. Willcontinue to monitor the leg as it is slowly improving. documented [facility] Work Phone: 1([phone] 215-180612-23-2024 History of Present illness Narrative* Elaine Betts, [employer] OPERATOR - 10/24/2024 8:30 AM EST Patient ID: Jewel Chaves is a 89 y.o. male. Subjective HPI Patient ID: Jewel Chaves is a 89 y.o. male. Subjective Patient ID:Jewel Chaves is a 88 y.o. 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 Visit with Dr. Jose J Martin for chronic kidney disease and hypertension. Chief complaint was fatigue and need to lose weight 09/13/2019. The patient has had long-term history of microcytic anemia going back to at least 2019 at which time his white count was 5.2 hemoglobin was 13.8 hematocrit 40.5 and a platelet count of 157,000. His MCV was 105 MCHC was 34. White blood cell differential count showed 66% polys, 17 lymphs,11 monos and 4 eosinophils. 10/12/2019. Seen by primary care for probable shingles treated with Valtrex with chief complaint ofwaxing and waning left flank pain radiating up under his ribs, somewhat responsive to exercise.. Hehad a history of pulmonary embolus and was on Eliquis long-term. 12/26/2019. Seen by Dr. Rick for elevated PSA, BPH and erectile dysfunction. PSA in 2017 was 2.94, in 2018 it was 2.74 and in 2019 it was 4.03. We discussed biopsy and the patient wanted to have this followed and not biopsy. 01/09/2020. Follow-up with Jae Gannon APRN primary care. Referred to Dr. Chopra for colonoscopy and CT scan of the chest was ordered for follow-up of questionable lingular nodule. 01/11/2020. CT scan of the chest showed a stable 6 mm nodular lesion near the fissure in the lingula. 01/13/2020. Seen by Dr. Chopra who noted that the patient had had diarrhea off-and-on since cholecystectomy and had intermittent left-sided pain. He had a history of colon polyps. 02/21/2015. 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 Seen by Dr. Nancy Rios in follow-up. She noted that he had an abnormal CBC with macrocytic indices with a normal B12 level. The patient denies alcohol use. Hemoglobin A1c was 6.2. BUN was 33 creatinine was 1.74. 07/02/2020. Follow-up with Dr. Rick. PSA had come down from 4.03-3.77 11/05/2020 through 11/13/2020. Admitted to the hospital having been brought to the ED by squad after he fell forward on his toilet and was unable to get up. He denied hitting his head or losing consciousness. He blamed it on having back pain and shoulder pain for several weeks. He was febrile with a temperature of 100.9 and hypoxic with pulse ox of 86% on room air. Respirations were 24. He was positive for COVID and was treated with intravenous antibiotics and remdesivir, increased supplemental oxygen. He was able to be discharged to rehabilitation. Repeat CBC showed white count 4.3 with a hemoglobin 12.9 hematocrit 38.8 with an MCV of 102 and a platelet count of 173,000. White blood cell differential count showed minimal absolute lymphocytopenia at 0.6 with the lower limits of normal being 0.8. 12/31/2020. Follow-up with Dr. Rick. PSA was 9.9 in December. Decided to have prostate biopsy done on01/21/2021. Results showed BPH. 08/07/2021. Follow-up with Dr. Rick. PSA in July was 2.77 02/05/2022. CBC showed white count 4.3 with hemoglobin 11.7 hematocrit 34.4 with an MCV of 107. Platelet count was 153,000. White blood cell differential count was essentially normal. 04/01/2022. CBC showed white count 3.6 with hemoglobin 11.6 hematocrit 34.4 and platelet count 117,000 with a normal white blood cell differential. 04/28/2022. Referred to Dr. Parra because of pancytopenia by Emma Hawkins APRN. CBC showed a white count of 3.9 with hemoglobin 12.3 hematocrit 36.1 and platelet count 129,000 with a normal differential. PSA was 3.26. The patient said that he felt well except for having increased fatigue. He continued on long-term anticoagulation. He was able to carry out his ADLs. He did complain of easy bruising. 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 Dr. Parra felt that there was a large component secondary to his chronic kidney disease. There was no evidence of nutritional deficiency. He checked him for hemolysis and monoclonal gammopathy and ordered an ultrasound for hepatosplenomegaly and testing for hepatitis, HIV and MAURIZIO. He said he would rather observe the patient rather than pursuing a bone marrow biopsy. 05/28/2022. Repeat lab data showed white count 3.9 with hemoglobin 12.3 hematocrit 36.1 and plateletcount 129,000. BUN was 36 creatinine was 1.78. He had mild elevation of AST. Retake count was 2.3%.Flow cytometry showed a small clonal B-cell population. Hepatitis B was nonreactive. Hep C testing was negative. Serum protein electrophoresis was normal. Haptoglobin was normal. LDH was normal. He said that the possibility of MDS could not be ruled out. Ultrasound showed fatty liver but no splenomegaly. He plan for EPO level and NGS for myeloid mutation. 07/03/2022. 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 2022. Seen by Dr. Dr. العراقي. Patient was referred to dermatology for several skin lesions. He was referred to neurology because of his tremor that was not improving. She increased his glimepiride. 08/18/2022. CBC showed white count 3.0 with hemoglobin 10.5 hematocrit 31.3 and a platelet count of106,000 MCV was 111. 08/27/2022. Follow-up with Dr. 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 He was suspicious for MDS. He referred him for a bone marrow biopsy. 10/02/2022. Follow-up with Dr. Parra. Bone marrow biopsy showed low-grade MDS. R IPSS score was low or very low depending on a karyotype which was still pending. We discussed initiating erythropoietinwith Aranesp but the patient deferred and the decision was made to monitor him. 11/12/2022. CBC showed white count 3.4 with hemoglobin 10.3 hematocrit 32.2 and a platelet count of 137,000. MCV was 115. White blood cell differential count was normal. 11/14/2022. Follow-up with Dr. Parra. The patient did say that he had following getting out of the shower but did not sustain any injuries. He had been started by Dr. Martin on insulin for his diabeteswhich was helpful. Patient continued to be active inside his house. He remains on Eliquis. BR-IPSS score is very low. Counts remain stable. 01/30/2023. CBC showed a white count of 2.6 with hemoglobin 8.7 hematocrit 27.1 and a platelet count97,000. MCV was 115. White blood cell differential count showed that he had an absolute neutrophil count of 1.36. 02/09/2023. CBC showed a white count of 2.5 with a hemoglobin 9.0 hematocrit of 27.7 with a plateletcount of 92,000. MCV was 114. 02/16/2023. Follow-up with Elaine Betts APRN. Even though his hemoglobin had dropped to 9 the patient did not want to start his erythropoietin injections. 03/12/2023. CBC showed white count of 2.5 with a hemoglobin of 7.6 hematocrit 23.8 and a platelet count of 101,000. Absolute neutrophil count was 1.17. 03/16/2023 through 03/20/2023. Admitted to the hospital with anemia and generalized weakness black stools dizziness with a hemoglobin of 6.7. His BUN was [address] scan of the abdomen showed no acute process. There were findings consistent with atypical healing of the previous rib fra cture with question Paget's disease although it was nonspecific. He was transfused 2 units packed red blood cells. EGD found 3 erosions in the cardia. He was prescribed Carafate. 03/25/2023. Follow-up with Dr. Dr. العراقي after discharge. CBC showed white count 1.9 with hemoglobin 8.6 hematocrit 28.3 and a platelet count of 140,000. Absolute neutrophil count was 1.06. Patient did not tolerate Carafate and stopped it. He was prescribed oral iron twice a day. He had not beenprescribed a PPI which was then started. 04/02/2023. CBC showed white count of 1.9 with hemoglobin 7.7 hematocrit 24.8 and a platelet count of87,000. 04/14/2023. CBC showed a white count of 1.9 with hemoglobin of 8.7 hematocrit 28.1 and platelet count of 89,000. 04/24/2023. Followed up with Dr. Dr. العراقي who reported that he was hospitalized again in [place] for GI bleed. At that time his Eliquis was discontinued and he was changed to Protonix and taken off his baby aspirin. Once again he was started on Carafate but did not tolerate it. 05/16/2023. CBC showed white count of 2.4 with hemoglobin 9.2 hematocrit 27.3 and a platelet count of 110,000. Absolute neutrophil count was 1.36. 05/18/2023. Follow-up with Elaine Betts. The patient had recently had a colonoscopy and had cauterizations he noted that he had dyspnea with exertion but no resting shortness of breath. He was on prednisone at that time. His sugars were in the 300s. He was on insulin. His neuropathy has not changedand he continues to have tremors. Current level was found to be saturated. Once again the patient was reluctant to start CHRISTIE. 06/15/2023. Follow-up with Elaine Betts. CBC showed white count 1.8 with a hemoglobin 8.9 hematocrit 26.9 and a platelet count of 100,000. Absolute neutrophil count was 0.96. 07/08/2023. CBC showed a white count of 1.8 with hemoglobin 9.5 hematocrit 28.8 and a platelet count of 85,000 with an absolute neutrophil count of 0.99. 07/15/2023. Follow-up with Dr. Rick. PSA has gone down to 1.87. 08/10/2023. Follow-up with Elaine Betts who noted the patient remained on oxygen and CPAP. He says that he is awakening in the middle of the night around 3 to 4:00 in the morning. Sugars have been in the 300s. Neuropathy was unchanged. He had been started on erythropoietin every 3 weeks 09/22/2023. Follow-up with Elaine Betts. No improvement in his hemoglobin. White count had improved to 2.1 platelets were baseline. He had been placed on 40 mg of prednisone and continued on erythropoietin 300 mcg every 3 weeks. 11/03/2023. Follow-up with Elaine Betts. No improvement in hemoglobin. Symptomatically he was doing well. Plan was to increase frequency of his darbepoetin to every 2 weeks. 12/15/2023. Follow-up with Elaine Betts. Now on erythropoietin injections every 2 weeks. There was a discussion concerning repeat bone marrow biopsy with counts stayed low. 01/12/2024. Follow-up with Elaine Betts. No improvement in his hemoglobin. Patient was agreeable to repeat bone marrow biopsy. She also ordered a CAT scan of the chest abdomen and pelvis without contrast. 01/22/2024. CAT scan showed severe coronary artery calcifications. There is evidence of bronchiectasis in the lower lobes increased compared to previous CT scan from 2019. Predominantly groundglass opacities with bibasilar prominence. There is some subpleural sparing of the left upper lobe. There is a 3 mm nodule in the right upper lobe which was unchanged for several years. 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 There is a small fat-containing periumbilical hernia and bilateral inguinal hernias. Spleen size is at the upper limitsof normal being 12.7 cm in length slightly increased when compared to study from 2019. Cysts were seen in the kidneys with diffuse cortical atrophy and a 4 mm hyperdense focus in the interpolar region of the right kidney possibly a stone. Prostatism was noted for gland measuring 6.2 cm. 01/28/2024. Seen by Dr. Harp for shortness of breath. He felt the patient had possible chronic interstitial lung disease versus periodic aspiration, hypoxia dyspnea on exertion. Further tests wereordered including high-resolution CT scan, complete pulmonary function testing, simple pulmonary stress test and follow-up. 02/09/2024. Follow-up with Elaine Betts. Erythropoietin injections continued every 2 weeks which the patient was tolerating well. 02/16/2024. Bone marrow biopsy was performed showing a hypercellular bone marrow at 50% with dyserythropoiesis. There are 1% blasts consistent with persistent myeloid neoplasm. Flow cytometry showed asmall clonal CD5 negative, CD10 negative B-cell population and a polytypic background. 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 There was a very small abnormal T-cell population that could be incidental. Next generation sequencing showed 2 U2AF 1 variants, 1 of which was negative. The other had been previously seen. The marrow also showed dyserythropoiesis with bilobate forms and forms with irregular nuclear contours as well as blebbing. 02/23/2024. CBC showed white count 1.5 with a hemoglobin of 8.3 hematocrit 25.9 and platelet count of 71,000 with 37% neutrophils, 53 lymphocytes, 4 monos, 4 eosinophils with an absolute neutrophil count of 0.57. 02/24/2024. Return visit with Dr. Harp. He noted that the high-resolution CT scan showed no significant change from the previous CT scan the month before. Pulmonary function testing showed no response to bronchodilator and there was mild restrictive change with some suggestion of airway inflammation. The patient had difficulty doing the test because of persistent coughing. 6-minute walk test showed that the patient was able to maintain saturations at 93% with 2 L of oxygen per minute continuously. The test was terminated because of dyspnea. With his hypoxia on room air it was recommended that he be on oxygen continuously to keep his saturation greater than or equal to 92%. He continued on oxygen with his CPAP at 3 L at nighttime. 03/11/2024. This is my first visit with Mr. Chaves and his family. We went over some of the results of the bone marrow biopsy. I told him that I would have to wait until the chromosomal analysis returned. I also note the possibility of low-grade lymphoma. He may need to have an opinion with malignanthematology at [facility]. Stepdaughter who is here with him and his today is his advocate for maintaining his quality of life. She is an employee at a local nursing facility and is concerned about many clients she has who seem to be getting treated aggressively. 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 He will continue on this treatment for now. Heis low counts were discussed and he knows that he is at higher risk for infection and bleeding. He continues on oxygen supplementation continuously. They will return in 2 weeks at which time laboratory tests will be performed. He just had a lesion removed from the dorsum of his right hand at the base of his first and second fingers. Stitches are still in place. It seems to be healing well without any significant bleeding or infection. He was told that it looked benign. 03/14/2024. Follow-up with Dr. Vianney Judge of cardiology who saw him in follow-up of his coronary artery disease with multiple stents having been placed, hypertension, dyslipidemia and previous pulmonary embolus related to COVID-19. She had stopped his Eliquis. 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 She notedthat at some point his aspirin had been stopped but given his history of stents this was restarted and he tolerated it well. She said that his blood pressure was well- controlled. She noted blood sugars were between 150-2 50. She noted the patient was supposed to be using oxygen with exertion but the patient was not sure what rate it was supposed to be. She says that she would not stop his aspirinunless his platelets were less than 50,000 with complications of bleeding. She said it was very important to continue aspirin given a 15% chance of in-stent thrombosis with aspirin cessation. She increased her furosemide to 80 mg twice a day because of bilateral lower extremity edema and spironolactone to 25 mg twice daily until symptoms improve and encouraged him to cut back on his salt intake. She was see him again in about 9 months. 03/15/2024. Follow-up with Dr. Adams of ophthalmology who started him on Naphcon- A drops 1 drop 3 times a day in both eyes for excessive tearing 03/16/2024. Followed up with Dr. Robert Mortensen of podiatry who noted decreased pedal pulses 2 out of 4. He had footcare. 03/25/2024. Follow-up with Dr. Harp. Review of his x-rays showed no change. Physical examinationshowed decreased breath sounds but no inspiratory crackles that were previously heard. He felt thatthe interstitial lung disease was stable and that his hypoxemia was improved on oxygen. He plan to repeat CT scan in July. 03/25/2024. He is here to follow-up on his bone marrow results. I told him that the chromosomal analysis would not be forthcoming before because the specimen failed to grow in culture. 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 We reviewed the fact that he is recommended tohave at least 6 months of his erythropoietin before we decide whether or not it is a failure. He isagreeable to this. We will increase his dose of darbepoetin. He knows to be on the look out for anysigns of infection or bleeding and to report this if it happens. We reviewed his most recent CBC. We will see him again in 2 weeks with his next injection. 03/31/2024. Follow-up with Dr. Dr. العراقي for his Medicare wellness visit. His magnesium dose waschanged to twice daily indefinitely. 04/08/2024. He is here today for his darbepoetin injection. We have increased his dose to 500 mcg every 2 weeks. Will see if this has any effect. Laboratory dated today shows that his sugar is 290 and his sodium is 134. BUN is 46 and creatinine is 2.31. CBC shows white count 1.5 with a hemoglobin 8.1hematocrit 24.7 and a platelet count of 71,000 which is very much like his most recent CBC. His absolute neutrophil count is 0.57. I talked to him about his current status which he feels is fairly stable. He is off oxygen. He has had no bleeding and no signs of infection. He understands that we have increased his dose of darbepoetin and we will watch his counts. He will report any side effects. He has continued to receive his darbepoetin injections. 05/16/2024. Emergency department visit [facility]. He developed a rash on both lower extremities which started a week ago which is an erythematous papular rash. He denied any pain or itching.He did not have any vesicle formation. It is bilateral. He has had a shingles injection. He was told that he had disseminated zoster and was started on valacyclovir a gram twice daily for 7 days. 05/20/2024. Seen by Dr. Dr. العراقي who said that the rash has not gotten any worse and might be alittle bit better. She noted that there were no vesicles no open areas no areas of secondary infection. 05/20/2024. He is here to receive his erythropoietin injection and to have a blood count. I told himit is not likely that this is disseminated zoster because it is nowhere else on his body but only on his lower extremities. This could be stasis dermatitis. I do not see any signs of vesicle formation and there never were any. It is mostly on the anterior shins. It is all below the knee. CBC today shows white count 1.4 with hemoglobin 8 hematocrit 25.4 platelet count 67,000 with 37 neutrophils 53 lymphocytes 5 monos 2 eosinophils. He is serum chemistry showed a sugar of 285 BUN of 49creatinine of 2.67. We told him he needed to keep his hydration status high. He will continue with his injections today. Blood pressure today is 153/64. He has had no bleeding and no infection. He has had no chest pain or pressure. He is able to participate in his usual activities including mowing the yard. He has continued to receive his darbepoetin and has followed up with podiatry for nail and callus care. 07/01/2024. He is here in routine follow-up. He says that he is doing well. He has had no infectionsor bleeding. He has had no mouth sores. He has had continued swelling in his legs a little bit worse on the left than on the right. Blood sugar was greater than 300 but he admits to dietary indiscretion. Has had no chest pain. His blood pressure was 149/63. He says that his breathing is stable. He is using his oxygen at home at night and when he travels that he does not have it on today. His lab data has shown no sign of improvement so far with white count 1.3, hemoglobin 8.6 hematocrit 27.2 and a platelet count of 69,000. White blood cell differential count shows 38% polys, 50 lymphs, 5 monos, 2 eosinophils. We plan a 6-month trial of this dose of darbepoetin which will extend until September. We will see him again in about a month. Interval Note 07/06/2024. CT scan of the chest showed mild streaky scarring in the lung bases bilaterally. The previously seen groundglass opacities probably be minimally improved. Calcified pleural plaques are seenwithout consolidation effusion or pneumothorax. There is no adenopathy seen by CT size criteria. Minimal hepatic steatosis was seen as well as calcified granuloma in the spleen and a somewhat atrophic pancreas. DJD was seen in the spine. 07/07/2024. Seen by Dr. 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 He noted myelodysplasia and that he was being followed for his anemia receiving CHRISTIE. He did not change any of his medications And said that he would see him again in about 6 months 07/12/2024. Follow-up by Dr. Harp at which time he told the patient he could decrease his oxygento 2 and he would repeat a CT scan in 6 months and see him after that. 07/29/2024. He is here today in routine follow-up. He will get his shot today. Laboratory data showsno improvement. We reviewed that we will follow him for 6 months on this treatment to see if there is any improvement. Mr. Hernandez says that he has had no significant bleeding. I see some red spots on the soft palate. His appetite has been good and he has gained weight of 1 pound since last time I saw him about a month ago. He has had no other signs of infection or deterioration in his status. He knows he is at riskfor serious infection or bleeding. We will continue on this treatment pathway. He will see him again in a month. 08/26/24: Seen in office today by CHUCK. Appetite is decent denies any early satiety weight is stable. Energy varies day to day. 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 Isolated episode of a nose bleed. He reported waking up last night sweaty and hot, unaware if he was running a fever, encouraged him to check temperature if this should re-occur. Denies any furtherB symptoms. No serious abnormal bleeding, remains bruising easily. Reviewed labs very minimal improvement in his labs, will continue with administering the shot todayas ordered. Will continue to monitor patient closely, with a follow-up in a month. 09/23/24: Patient was recently in the ED for tremors. He reports he didn't feel well/didn't feel right. Head/Brain CT, EKG,- were normal in findings. Patient is here today and feels better he reportsincreasing numbness/tingling in bilateral hands, chronic back pain. Denies headaches, vision changes. Denies any fever, nausea, vomiting. Reports sweating at night on his bilateral legs, denies any re stless leg symptoms. Denies any abnormal bruising or bleeding. Appetite is good, unchanged. Energy remains poor. 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 Wears continuous oxygen at home, CPAP w/oxygen at night.Chronic productive cough in the am. 10/24/24: Patient is tolerating darbopoetin well. He reports that his energy could be better, someday's are better than others. Remains to have the tremors, right hand is worse than his left, he has yet to schedule with Neurology. Currently treating left foot/ankle for cellulitis, remains taking Keflex daily. Patient report that it is healing well. However has has a rash on his left leg. Continues wearing compression stockings. Feeling better today. Objective BSA: There is no height or weight on file to calculate BSA. There were no vitals taken for this visit. Physical Exam Vitals and nursing note reviewed. Constitutional: Appearance: Normal appearance. He is obese. HENT: Head: Normocephalic and atraumatic. Nose: Nose normal. Mouth/Throat: Mouth: Mucous membranes are moist. Pharynx: Oropharynx is clear. Eyes: General: No scleral icterus. Extraocular Movements: Extraocular movements intact. Conjunctiva/sclera: Conjunctivae normal. Cardiovascular: Rate and Rhythm: Normal rate and regular rhythm. Pulses: Normal pulses. Heart sounds: Normal heart sounds. Pulmonary: Effort: Pulmonary effort is normal. Breath sounds: Normal breath sounds. Musculoskeletal: General: Normal range of motion. Cervical back: Normal range of motion. Skin: General: Skin is warm and dry. Coloration: Skin is pale. Neurological: General: No focal deficit present. Mental Status: He is alert and oriented to person, place, and time. Performance Status: Asymptomatic Assessment/Plan 1. Pancytopenia. The patient has unusual bone marrow findings. Chromosomal analysis will not be done due to failure of the specimen to grow. 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 He also has components of myelodysplasia. He is not responding to erythropoietin. We willincrease his dose to 500 mcg every other week. He continues to be at high risk for bleeding and infection with a low ANC and low platelet count. He has had previous GI bleeds. He is currently back onhis aspirin per follow-up with Dr. Judge for fear of clotting off his stents. He is off Eliquis. He will get his treatment today with darbepoetin and continue every 14 days. We plan for 6-month trial which will take us to September. 10/24/24: Patient remains tolerating darbopoetin with no adverse effects. His counts continue to remain around his baseline, with no significant improvement. We will continue with this treatment planfor the time being. He denies any abnormal bleeding, no signs of infections or B symptoms. 2. Multiple comorbidities. 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 3. Rash on his legs. I think this looks more like stasis dermatitis than disseminated zoster. If itwere disseminated zoster he would have it on other areas of his body. Plan: Discussed and reviewed recent medical history. He will continue his Darbopoetin alpha every 2 weeks . He will call us if he has any questions or concerns. Return to see provider in 6 weeks He knows that he should call in the interim should he have any change in his SOY Paulson * Maris Kim RN - 10/24/2024 8:30 AM EST Stat labs drawn at clinic for his injection today 11/07 1130 stat lab with Darbepoetin 11/21 9am stat lab with darbepoetin 2/3 9am [employer]ER OPERATOR visit- Shima draw labs 930 Darbepoetin to follow Reviewed AVS with patient- patient verbalizes understanding [facility] Work Phone: 1(111) 682-961212-23-2024 Instructions* Patient Instructions* SOY Paulson - 10/24/2024 8:30 AM EST Discussed and reviewed recent medical history. He will continue his Darbopoetin alpha every 2 weeks . He will call us if he has any questions or concerns. Return to see provider in 6 weeks [facility] Work Phone: 1([phone]) 856-963712-17-2024 History of Present illness Narrative* Montse Mendoza CMA - 10/18/2024 11:20 AM EST Follow up from er for left ankle rash tingling in both thumbs * Palmira العراقي MD - 10/18/2024 11:20 AM EST Subjective Jewel Chaves is a 89 y.o. male who presents for Rash. Here for follow up recent ER visit for cellulitis of his foot/ankle. He was treated with keflex. Henotes that the redness is spreading. No pain with it. No drainage. Objective Visit Vitals BP 124/80 Pulse 80 Physical Exam Vitals reviewed. Constitutional: General: He is not in acute distress. Cardiovascular: Rate and Rhythm: Normal rate. Pulmonary: Effort: Pulmonary effort is normal. No respiratory distress. Skin: General: Skin is warm and dry. Comments: There is mild-mod erythema of the inner ankle/lower leg Neurological: General: No focal deficit present. Mental Status: He is alert. Mental status is at baseline. Assessment/Plan Problem List Items Addressed This Visit Tremor, essential Relevant Medications gabapentin (Neurontin) 300 mg capsule Other Visit Diagnoses Cellulitis of left lower extremity - Primary Relevant Medications doxycycline (Vibramycin) 100 mg capsule Palmira العراقي MD documented in [facility]Ch[facility] Work Phone: 1([phone] 396-140512-17-2024 Instructions* Patient Instructions* Palmira العراقي MD - 10/18/2024 11:20 AM EST Will switch antibiotics to doxycycline. Continue other medications. Follow up if no improvement or if he worsens. documented in [facility]Ch[facility] Work Phone: 1(478) 188-626612-02-2024 History of Present illness Narrative* Palmira العراقي MD - 10/03/2024 2:00 PM EST Subjective Jewel Chaves is a 89 y.o. male who presents for Follow-up (6 month follow up). Here for routine follow up HTN, DM, CKD (Dr Martin), CAD ([facility]), high chol, thrombocytopenia/anemia/pancytopenia (Dr Prado), tremor (Dr Can), DWIAN, h/o PE, GI bleed, DWAIN on CPAP - tolerating well ([facility]). He states that he is doing pretty well. His main complaint is lack of energy - we discussed that his A1C is higher and so that could be contributing some and we will increase his lantus. He is a little more anemic as well and he is working with heme/onc regarding that. He does have someissues with low back ache. Discussed PT but he would prefer to do some exercises at home. Objective Visit Vitals BP 128/64 Pulse 81 Physical Exam Vitals reviewed. Constitutional: General: He is not in acute distress. Cardiovascular: Rate and Rhythm: Normal rate and regular rhythm. Heart sounds: No murmur heard. Pulmonary: Effort: Pulmonary effort is normal. No respiratory distress. Breath sounds: Normal breath sounds. Skin: General: Skin is warm and dry. Neurological: General: No focal deficit present. Mental Status: He is alert. Mental status is at baseline. Latest Reference Range & Units 09/26/24 08:21 GLUCOSE 74 - 99 mg/dL 285 (H) SODIUM 136 - 145 mmol/L 140 POTASSIUM 3.5 - 5.3 mmol/L 4.2 CHLORIDE 98 - 107 mmol/L 103 Bicarbonate 21 - 32 mmol/L 27 Anion Gap 10 - 20 mmol/L 14 Blood Urea Nitrogen 6 - 23 mg/dL 51 (H) Creatinine 0.50 - 1.30 mg/dL 2.64 (H) EGFR >60 mL/min/1.73m*2 22 (L) Calcium 8.6 - 10.3 mg/dL 8.8 Albumin 3.4 - 5.0 g/dL 3.9 Alkaline Phosphatase 33 - 136 U/L 94 ALT 10 - 52 U/L 19 AST 9 - 39 U/L 23 Bilirubin Total 0.0 - 1.2 mg/dL 0.9 HDL CHOLESTEROL mg/dL 30.0 Cholesterol/HDL Ratio 3.1 LDL Calculated <=99 mg/dL 22 VLDL 0 - 40 mg/dL 40 TRIGLYCERIDES 0 - 149 mg/dL 201 (H) Non HDL Cholesterol 0 - 149 mg/dL 62 Total Protein 6.4 - 8.2 g/dL 6.0 (L) CHOLESTEROL 0 - 199 mg/dL 92 Vitamin B12 211 - 911 pg/mL 451 Hemoglobin A1C See comment % 10.0 (H) Thyroid Stimulating Hormone 0.44 - 3.98 mIU/L 3.69 Estimated Average Glucose Not Established mg/dL 240 WBC 4.4 - 11.3 x10*3/uL 1.2 (L) nRBC 0.0 - 0.0 /100 WBCs 0.0 RBC 4.50 - 5.90 x10*6/uL 2.45 (L) HEMOGLOBIN 13.5 - 17.5 g/dL 8.3 (L) HEMATOCRIT 41.0 - 52.0 % 26.1 (L) MCV 80 - 100 fL 107 (H) MCH 26.0 - 34.0 pg 33.9 MCHC 32.0 - 36.0 g/dL 31.8 (L) RED CELL DISTRIBUTION WIDTH 11.5 - 14.5 % 19.9 (H) Platelets 150 - 450 x10*3/uL 60 (L) Neutrophils % 40.0 - 80.0 % 30.6 Immature Granulocytes %, Automated 0.0 - 0.9 % 0.8 Lymphocytes % 13.0 - 44.0 % 57.0 Monocytes % 2.0 - 10.0 % 5.8 Eosinophils % 0.0 - 6.0 % 5.0 Basophils % 0.0 - 2.0 % 0.8 Neutrophils Absolute 1.60 - 5.50 x10*3/uL 0.37 (L) Immature Granulocytes Absolute, Automated 0.00 - 0.50 x10*3/uL 0.01 Lymphocytes Absolute 0.80 - 3.00 x10*3/uL 0.69 (L) Monocytes Absolute 0.05 - 0.80 x10*3/uL 0.07 Eosinophils Absolute 0.00 - 0.40 x10*3/uL 0.06 Basophils Absolute 0.00 - 0.10 x10*3/uL 0.01 RBC Morphology See Below RBC Fragments Few Ovalocytes Few (H): Data is abnormally high (L): Data is abnormally low Assessment/Plan Problem List Items Addressed This Visit CAD (coronary artery disease) - Primary Relevant Orders CBC and Auto Differential Comprehensive Metabolic Panel Hemoglobin A1C Lipid Panel TSH with reflex to Free T4 if abnormal Vitamin B12 Type 2 diabetes mellitus with stage 4 chronic kidney disease, with long-term current use of insulin(Multi) Relevant Orders CBC and Auto Differential Comprehensive Metabolic Panel Hemoglobin A1C Lipid Panel TSH with reflex to Free T4 if abnormal Vitamin B12 Hypertension Relevant Orders CBC and Auto Differential Comprehensive Metabolic Panel Hemoglobin A1C Lipid Panel TSH with reflex to Free T4 if abnormal Vitamin B12 Mixed hyperlipidemia Relevant Orders CBC and Auto Differential Comprehensive Metabolic Panel Hemoglobin A1C Lipid Panel TSH with reflex to Free T4 if abnormal Vitamin B12 Tremor, essential Relevant Orders CBC and Auto Differential Comprehensive Metabolic Panel Hemoglobin A1C Lipid Panel TSH with reflex to Free T4 if abnormal Vitamin B12 Other Visit Diagnoses Type 2 diabetes mellitus with diabetic chronic kidney disease Relevant Medications insulin glargine (Lantus U-100 Insulin) 100 unit/mL injection Other Relevant Orders CBC and Auto Differential Comprehensive Metabolic Panel Hemoglobin A1C Lipid Panel TSH with reflex to Free T4 if abnormal Vitamin B12 CBC and Auto Differential Comprehensive Metabolic Panel Hemoglobin A1C Lipid Panel TSH with reflex to Free T4 if abnormal Vitamin B12 Palmira العراقي MD [facility] Work Phone: 1(533) 676-728712-02-2024 Instructions* Patient Instructions* Palmira العراقي MD - 10/03/2024 2:00 PM EST Will increase insulin to 60 units daily, continue other current medications, follow up with specialists as scheduled. Follow up here in 3 months, sooner if needed. documented in [facility] Work Phone: 1(134) 412-553311-22-2024 NoteNail care Patient is a pleasant 88-year-old gentleman who comes in today for at risk nail care. His diabetes is managed by primary including Jae Gannon, A1c unknown. Thinks it is 7% though but he is just not sure. Physical Vascular: DP pulses are palpable 2 out of 4 bilaterally. PT pulses are nonpalpable bilaterally. CFT is delayed with mild foot and ankle edema pitting in nature +1. Hair growth is absent bilaterally. Skin is shiny atrophic dysvascular. Nails [id number] left foot and [id number] right foot are markedly elongated thickened mycotic crumbling and dystrophic. Neuro: Sharp dull is blunted Babinski's is blunted. Musculoskeletal: Muscle strength is 5/5 with fair tone. Can easily wiggle toes without any clicking or catching. Derm: Mild hyperkeratosis plantar medial heel right and left no flaking or loss no deep nodules. Assessment and plan: Patient is a pleasant diabetic male with age and diabetic induced peripheral arterial disease and onychomycosis to 10 nails. -He does qualify for nail care given his elevated risk with arterial disease. -Procedure: Sharply debrided and debulk in height and length 10 onychomycotic nails with a sharp pair of nail nippers consistent with a q8 modifier Follow-up in 3 months for foot nail care. AUTHENTICATED BY ROBERT MORTENSEN JR., ON 09/23/2024 14:46:35[facility]11-22-2024 History of Present illness Narrative* Robert Mortensen Jr., DPM - 09/23/2024 2:46 PM EST Nail care Patient is a pleasant 88-year-old gentleman who comes in today for at risk nail care. His diabetes is managed by primary including Jae Gannon, A1c unknown. Thinks it is 7% though but he is justnot sure. Physical Vascular: DP pulses are palpable 2 out of 4 bilaterally. PT pulses are nonpalpable bilaterally. CFTis delayed with mild foot and ankle edema pitting in nature +1. Hair growth is absent bilaterally. Skin is shiny atrophic dysvascular. Nails 61725 left foot and 55648 right foot are markedly elongated thickened mycotic crumbling and dystrophic. Neuro: Sharp dull is blunted Babinski's is blunted. Musculoskeletal: Muscle strength is 5/5 with fair tone. Can easily wiggle toes without any clickingor catching. Derm: Mild hyperkeratosis plantar medial heel right and left no flaking or loss no deep nodules. Assessment and plan: Patient is a pleasant diabetic male with age and diabetic induced peripheral arterial disease and onychomycosis to 10 nails. -He does qualify for nail care given his elevated risk with arterial disease. -Procedure: Sharply debrided and debulk in height and length 10 onychomycotic nails with a sharp pair of nail nippers consistent with a q8 modifier Follow-up in 3 months for foot nail care. documented in this [id number] History of Present illness Narrative* SOY Paulson - 09/23/2024 10:30 AM EST Patient ID: Jewel Chaves is a 89 y.o. male. Subjective HPI HPI Patient ID:Jewel Chaves is a 88 y.o. year old male patient with myelodysplasia Referring Physician: Yisel Prado MD [address] [place] [address] Dr [address] [place] [id number] Primary Care Provider: Palmira العراقي MD Chief Complaint Chief Complaint Patient presents with Anemia History of the Present Illness 08/10/2019. Visit with Dr. Jose J Martin for chronic kidney disease and hypertension. Chief complaint was fatigue and need to lose weight 09/13/2019. The patient has had long-term history of microcytic anemia going back to at least 2018 at which time his white count was 5.2 hemoglobin was 13.8 hematocrit 40.5 and a platelet count of 157,000. His MCV was 105 MCHC was 34. White blood cell differential count showed 66% polys, 17 lymphs,11 monos and 4 eosinophils. 10/12/2019. Seen by primary care for probable shingles treated with Valtrex with chief complaint ofwaxing and waning left flank pain radiating up under his ribs, somewhat responsive to exercise.. Hehad a history of pulmonary embolus and was on Eliquis long-term. 12/26/2019. Seen by Dr. Rick for elevated PSA, BPH and erectile dysfunction. PSA in 2017 was 2.94, in 2018 it was 2.74 and in 2019 it was 4.03. We discussed biopsy and the patient wanted to have this followed and not biopsy. 01/09/2020. Follow-up with Jae Gannon APRN primary care. Referred to Dr. Chopra for colonoscopy and CT scan of the chest was ordered for follow-up of questionable lingular nodule. 01/11/2020. CT scan of the chest showed a stable 6 mm nodular lesion near the fissure in the lingula. 01/13/2020. Seen by Dr. Chopra who noted that the patient had had diarrhea off-and-on since cholecystectomy and had intermittent left-sided pain. He had a history of colon polyps. 02/21/2015. 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 Seen by Dr. Nancy Rios in follow-up. She noted that he had an abnormal CBC with macrocytic indices with a normal B12 level. The patient denies alcohol use. Hemoglobin A1c was 6.2. BUN was 33 creatinine was 1.74. 07/02/2020. Follow-up with Dr. Rick. PSA had come down from 4.03-3.77 11/05/2020 through 11/13/2020. Admitted to the hospital having been brought to the ED by squad after he fell forward on his toilet and was unable to get up. He denied hitting his head or losing consciousness. He blamed it on having back pain and shoulder pain for several weeks. He was febrile with a temperature of 100.9 and hypoxic with pulse ox of 86% on room air. Respirations were 24. He was positive for COVID and was treated with intravenous antibiotics and remdesivir, increased supplemental oxygen. He was able to be discharged to rehabilitation. Repeat CBC showed white count 4.3 with a hemoglobin 12.9 hematocrit 38.8 with an MCV of 102 and a platelet count of 173,000. White blood cell differential count showed minimal absolute lymphocytopenia at 0.6 with the lower limits of normal being 0.8. 12/31/2020. Follow-up with Dr. Rick. PSA was 9.9 in December. Decided to have prostate biopsy done on01/21/2021. Results showed BPH. 08/07/2021. Follow-up with Dr. Rick. PSA in July was 2.77 02/05/2022. CBC showed white count 4.3 with hemoglobin 11.7 hematocrit 34.4 with an MCV of 107. Platelet count was 153,000. White blood cell differential count was essentially normal. 04/01/2022. CBC showed white count 3.6 with hemoglobin 11.6 hematocrit 34.4 and platelet count 117,000 with a normal white blood cell differential. 04/28/2022. Referred to Dr. Parra because of pancytopenia by Emma Hawkins APRN. CBC showed a white count of 3.9 with hemoglobin 12.3 hematocrit 36.1 and platelet count 129,000 with a normal differential. PSA was 3.26. The patient said that he felt well except for having increased fatigue. He continued on long-term anticoagulation. He was able to carry out his ADLs. He did complain of easy bruising. 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 Dr. Parra felt that there was a large component secondary to his chronic kidney disease. There was no evidence of nutritional deficiency. He checked him for hemolysis and monoclonal gammopathy and ordered an ultrasound for hepatosplenomegaly and testing for hepatitis, HIV and MAURIZIO. He said he would rather observe the patient rather than pursuing a bone marrow biopsy. 05/28/2022. Repeat lab data showed white count 3.9 with hemoglobin 12.3 hematocrit 36.1 and plateletcount 129,000. BUN was 36 creatinine was 1.78. He had mild elevation of AST. Retake count was 2.3%.Flow cytometry showed a small clonal B-cell population. Hepatitis B was nonreactive. Hep C testing was negative. Serum protein electrophoresis was normal. Haptoglobin was normal. LDH was normal. He said that the possibility of MDS could not be ruled out. Ultrasound showed fatty liver but no splenomegaly. He plan for EPO level and NGS for myeloid mutation. 07/03/2022. 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 2022. Seen by Dr. Dr. العراقي. Patient was referred to dermatology for several skin lesions. He was referred to neurology because of his tremor that was not improving. She increased his glimepiride. 08/18/2022. CBC showed white count 3.0 with hemoglobin 10.5 hematocrit 31.3 and a platelet count of106,000 MCV was 111. 08/27/2022. Follow-up with Dr. 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 He was suspicious for MDS. He referred him for a bone marrow biopsy. 10/02/2022. Follow-up with Dr. Parra. Bone marrow biopsy showed low-grade MDS. R IPSS score was low or very low depending on a karyotype which was still pending. We discussed initiating erythropoietinwith Aranesp but the patient deferred and the decision was made to monitor him. 11/12/2022. CBC showed white count 3.4 with hemoglobin 10.3 hematocrit 32.2 and a platelet count of 137,000. MCV was 115. White blood cell differential count was normal. 11/14/2022. Follow-up with Dr. Parra. The patient did say that he had following getting out of the shower but did not sustain any injuries. He had been started by Dr. Martin on insulin for his diabeteswhich was helpful. Patient continued to be active inside his house. He remains on Eliquis. BR-IPSS score is very low. Counts remain stable. 01/30/2023. CBC showed a white count of 2.6 with hemoglobin 8.7 hematocrit 27.1 and a platelet count97,000. MCV was 115. White blood cell differential count showed that he had an absolute neutrophil count of 1.36. 02/09/2023. CBC showed a white count of 2.5 with a hemoglobin 9.0 hematocrit of 27.7 with a plateletcount of 92,000. MCV was 114. 02/16/2023. Follow-up with Elaine Betts APRN. Even though his hemoglobin had dropped to 9 the patient did not want to start his erythropoietin injections. 03/12/2023. CBC showed white count of 2.5 with a hemoglobin of 7.6 hematocrit 23.8 and a platelet count of 101,000. Absolute neutrophil count was 1.17. 03/16/2023 through 03/20/2023. Admitted to the hospital with anemia and generalized weakness black stools dizziness with a hemoglobin of 6.7. His BUN was [address] scan of the abdomen showed no acute process. There were findings consistent with atypical healing of the previous rib fra cture with question Paget's disease although it was nonspecific. He was transfused 2 units packed red blood cells. EGD found 3 erosions in the cardia. He was prescribed Carafate. 03/25/2023. Follow-up with Dr. Dr. العراقي after discharge. CBC showed white count 1.9 with hemoglobin 8.6 hematocrit 28.3 and a platelet count of 140,000. Absolute neutrophil count was 1.06. Patient did not tolerate Carafate and stopped it. He was prescribed oral iron twice a day. He had not beenprescribed a PPI which was then started. 04/02/2023. CBC showed white count of 1.9 with hemoglobin 7.7 hematocrit 24.8 and a platelet count of87,000. 04/14/2023. CBC showed a white count of 1.9 with hemoglobin of 8.7 hematocrit 28.1 and platelet count of 89,000. 04/24/2023. Followed up with Dr. Dr. العراقي who reported that he was hospitalized again in [place] for GI bleed. At that time his Eliquis was discontinued and he was changed to Protonix and taken off his baby aspirin. Once again he was started on Carafate but did not tolerate it. 05/16/2023. CBC showed white count of 2.4 with hemoglobin 9.2 hematocrit 27.3 and a platelet count of 110,000. Absolute neutrophil count was 1.36. 05/18/2023. Follow-up with Elaine Betts. The patient had recently had a colonoscopy and had cauterizations he noted that he had dyspnea with exertion but no resting shortness of breath. He was on prednisone at that time. His sugars were in the 300s. He was on insulin. His neuropathy has not changedand he continues to have tremors. Current level was found to be saturated. Once again the patient was reluctant to start CHRISTIE. 06/15/2023. Follow-up with Elaine Betts. CBC showed white count 1.8 with a hemoglobin 8.9 hematocrit 26.9 and a platelet count of 100,000. Absolute neutrophil count was 0.96. 07/08/2023. CBC showed a white count of 1.8 with hemoglobin 9.5 hematocrit 28.8 and a platelet count of 85,000 with an absolute neutrophil count of 0.99. 07/15/2023. Follow-up with Dr. Rick. PSA has gone down to 1.87. 08/10/2023. Follow-up with Elaine Betts who noted the patient remained on oxygen and CPAP. He says that he is awakening in the middle of the night around 3 to 4:00 in the morning. Sugars have been in the 300s. Neuropathy was unchanged. He had been started on erythropoietin every 3 weeks 09/22/2023. Follow-up with Elaine Betts. No improvement in his hemoglobin. White count had improved to 2.1 platelets were baseline. He had been placed on 40 mg of prednisone and continued on erythropoietin 300 mcg every 3 weeks. 11/03/2023. Follow-up with Elaine Betts. No improvement in hemoglobin. Symptomatically he was doing well. Plan was to increase frequency of his darbepoetin to every 2 weeks. 12/15/2023. Follow-up with Elaine Betts. Now on erythropoietin injections every 2 weeks. There was a discussion concerning repeat bone marrow biopsy with counts stayed low. 01/12/2024. Follow-up with Elaine Betts. No improvement in his hemoglobin. Patient was agreeable to repeat bone marrow biopsy. She also ordered a CAT scan of the chest abdomen and pelvis without contrast. 01/22/2024. CAT scan showed severe coronary artery calcifications. There is evidence of bronchiectasis in the lower lobes increased compared to previous CT scan from 2020. Predominantly groundglass opacities with bibasilar prominence. There is some subpleural sparing of the left upper lobe. There is a 3 mm nodule in the right upper lobe which was unchanged for several years. 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 There is a small fat-containing periumbilical hernia and bilateral inguinal hernias. Spleen size is at the upper limitsof normal being 12.7 cm in length slightly increased when compared to study from 2019. Cysts were seen in the kidneys with diffuse cortical atrophy and a 4 mm hyperdense focus in the interpolar region of the right kidney possibly a stone. Prostatism was noted for gland measuring 6.2 cm. 01/28/2024. Seen by Dr. Harp for shortness of breath. He felt the patient had possible chronic interstitial lung disease versus periodic aspiration, hypoxia dyspnea on exertion. Further tests wereordered including high-resolution CT scan, complete pulmonary function testing, simple pulmonary stress test and follow-up. 02/09/2024. Follow-up with Elaine Betts. Erythropoietin injections continued every 2 weeks which the patient was tolerating well. 02/16/2024. Bone marrow biopsy was performed showing a hypercellular bone marrow at 50% with dyserythropoiesis. There are 1% blasts consistent with persistent myeloid neoplasm. Flow cytometry showed asmall clonal CD5 negative, CD10 negative B-cell population and a polytypic background. 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 There was a very small abnormal T-cell population that could be incidental. Next generation sequencing showed 2 U2AF 1 variants, 1 of which was negative. The other had been previously seen. The marrow also showed dyserythropoiesis with bilobate forms and forms with irregular nuclear contours as well as blebbing. 02/23/2024. CBC showed white count 1.5 with a hemoglobin of 8.3 hematocrit 25.9 and platelet count of 71,000 with 37% neutrophils, 53 lymphocytes, 4 monos, 4 eosinophils with an absolute neutrophil count of 0.57. 02/24/2024. Return visit with Dr. Harp. He noted that the high-resolution CT scan showed no significant change from the previous CT scan the month before. Pulmonary function testing showed no response to bronchodilator and there was mild restrictive change with some suggestion of airway inflammation. The patient had difficulty doing the test because of persistent coughing. 6-minute walk test showed that the patient was able to maintain saturations at 93% with 2 L of oxygen per minute continuously. The test was terminated because of dyspnea. With his hypoxia on room air it was recommended that he be on oxygen continuously to keep his saturation greater than or equal to 92%. He continued on oxygen with his CPAP at 3 L at nighttime. 03/11/2024. This is my first visit with Mr. Chaves and his family. We went over some of the results of the bone marrow biopsy. I told him that I would have to wait until the chromosomal analysis returned. I also note the possibility of low-grade lymphoma. He may need to have an opinion with [facility]hematology at [facility]. Stepdaughter who is here with him and his today is his advocate for maintaining his quality of life. She is an employee at a local nursing facility and is concerned about many clients she has who seem to be getting treated aggressively. 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 He will continue on this treatment for now. Heis low counts were discussed and he knows that he is at higher risk for infection and bleeding. He continues on oxygen supplementation continuously. They will return in 2 weeks at which time laboratory tests will be performed. He just had a lesion removed from the dorsum of his right hand at the base of his first and second fingers. Stitches are still in place. It seems to be healing well without any significant bleeding or infection. He was told that it looked benign. 03/14/2024. Follow-up with Dr. Vianney Judge of cardiology who saw him in follow-up of his coronary artery disease with multiple stents having been placed, hypertension, dyslipidemia and previous pulmonary embolus related to COVID-19. She had stopped his Eliquis. 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 She notedthat at some point his aspirin had been stopped but given his history of stents this was restarted and he tolerated it well. She said that his blood pressure was well- controlled. She noted blood sugars were between 150-2 50. She noted the patient was supposed to be using oxygen with exertion but the patient was not sure what rate it was supposed to be. She says that she would not stop his aspirinunless his platelets were less than 50,000 with complications of bleeding. She said it was very important to continue aspirin given a 15% chance of in-stent thrombosis with aspirin cessation. She increased her furosemide to 80 mg twice a day because of bilateral lower extremity edema and spironolactone to 25 mg twice daily until symptoms improve and encouraged him to cut back on his salt intake. She was see him again in about 9 months. 03/15/2024. Follow-up with Dr. Adams of ophthalmology who started him on Naphcon- A drops 1 drop 3 times a day in both eyes for excessive tearing 03/16/2024. Followed up with Dr. Robert Mortensen of podiatry who noted decreased pedal pulses 2 out of 4. He had footcare. 03/25/2024. Follow-up with Dr. Harp. Review of his x-rays showed no change. Physical examinationshowed decreased breath sounds but no inspiratory crackles that were previously heard. He felt thatthe interstitial lung disease was stable and that his hypoxemia was improved on oxygen. He plan to repeat CT scan in July. 03/25/2024. He is here to follow-up on his bone marrow results. I told him that the chromosomal analysis would not be forthcoming before because the specimen failed to grow in culture. 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 We reviewed the fact that he is recommended tohave at least 6 months of his erythropoietin before we decide whether or not it is a failure. He isagreeable to this. We will increase his dose of darbepoetin. He knows to be on the look out for anysigns of infection or bleeding and to report this if it happens. We reviewed his most recent CBC. We will see him again in 2 weeks with his next injection. 03/31/2024. Follow-up with Dr. Dr. العراقي for his Medicare wellness visit. His magnesium dose waschanged to twice daily indefinitely. 04/08/2024. He is here today for his darbepoetin injection. We have increased his dose to 500 mcg every 2 weeks. Will see if this has any effect. Laboratory dated today shows that his sugar is 290 and his sodium is 134. BUN is 46 and creatinine is 2.31. CBC shows white count 1.5 with a hemoglobin 8.1hematocrit 24.7 and a platelet count of 71,000 which is very much like his most recent CBC. His absolute neutrophil count is 0.57. I talked to him about his current status which he feels is fairly stable. He is off oxygen. He has had no bleeding and no signs of infection. He understands that we have increased his dose of darbepoetin and we will watch his counts. He will report any side effects. He has continued to receive his darbepoetin injections. 05/16/2024. Emergency department [facility]. He developed a rash on both lower extremities which started a week ago which is an erythematous papular rash. He denied any pain or itching.He did not have any vesicle formation. It is bilateral. He has had a shingles injection. He was told that he had disseminated zoster and was started on valacyclovir a gram twice daily for 7 days. 05/20/2024. Seen by Dr. Dr. العراقي who said that the rash has not gotten any worse and might be alittle bit better. She noted that there were no vesicles no open areas no areas of secondary infection. 05/20/2024. He is here to receive his erythropoietin injection and to have a blood count. I told himit is not likely that this is disseminated zoster because it is nowhere else on his body but only on his lower extremities. This could be stasis dermatitis. I do not see any signs of vesicle formation and there never were any. It is mostly on the anterior shins. It is all below the knee. CBC today shows white count 1.4 with hemoglobin 8 hematocrit 25.4 platelet count 67,000 with 37 neutrophils 53 lymphocytes 5 monos 2 eosinophils. He is serum chemistry showed a sugar of 285 BUN of 49creatinine of 2.67. We told him he needed to keep his hydration status high. He will continue with his injections today. Blood pressure today is 153/64. He has had no bleeding and no infection. He has had no chest pain or pressure. He is able to participate in his usual activities including mowing the yard. He has continued to receive his darbepoetin and has followed up with podiatry for nail and callus care. 07/01/2024. He is here in routine follow-up. He says that he is doing well. He has had no infectionsor bleeding. He has had no mouth sores. He has had continued swelling in his legs a little bit worse on the left than on the right. Blood sugar was greater than 300 but he admits to dietary indiscretion. Has had no chest pain. His blood pressure was 149/63. He says that his breathing is stable. He is using his oxygen at home at night and when he travels that he does not have it on today. His lab data has shown no sign of improvement so far with white count 1.3, hemoglobin 8.6 hematocrit 27.2 and a platelet count of 69,000. White blood cell differential count shows 38% polys, 50 lymphs, 5 monos, 2 eosinophils. We plan a 6-month trial of this dose of darbepoetin which will extend until September. We will see him again in about a month. Interval Note 07/06/2024. CT scan of the chest showed mild streaky scarring in the lung bases bilaterally. The previously seen groundglass opacities probably be minimally improved. Calcified pleural plaques are seenwithout consolidation effusion or pneumothorax. There is no adenopathy seen by CT size criteria. Minimal hepatic steatosis was seen as well as calcified granuloma in the spleen and a somewhat atrophic pancreas. DJD was seen in the spine. 07/07/2024. Seen by Dr. 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 He noted myelodysplasia and that he was being followed for his anemia receiving CHRISTIE. He did not change any of his medications And said that he would see him again in about 6 months 07/12/2024. Follow-up by Dr. Harp at which time he told the patient he could decrease his oxygento 2 and he would repeat a CT scan in 6 months and see him after that. 07/29/2024. He is here today in routine follow-up. He will get his shot today. Laboratory data showsno improvement. We reviewed that we will follow him for 6 months on this treatment to see if there is any improvement. Mr. Hernandez says that he has had no significant bleeding. I see some red spots on the soft palate. His appetite has been good and he has gained weight of 1 pound since last time I saw him about a month ago. He has had no other signs of infection or deterioration in his status. He knows he is at riskfor serious infection or bleeding. We will continue on this treatment pathway. He will see him again in a month. 08/26/24: Seen in office today by CHUCK. Appetite is decent denies any early satiety weight is stable. Energy varies day to day. 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 Isolated episode of a nose bleed. He reported waking up last night sweaty and hot, unaware if he was running a fever, encouraged him to check temperature if this should re-occur. Denies any furtherB symptoms. No serious abnormal bleeding, remains bruising easily. Reviewed labs very minimal improvement in his labs, will continue with administering the shot todayas ordered. Will continue to monitor patient closely, with a follow-up in a month. 09/23/24: Patient was recently in the ED for tremors. He reports he didn't feel well/didn't feel right. Head/Brain CT, EKG,- were normal in findings. Patient is here today and feels better he reportsincreasing numbness/tingling in bilateral hands, chronic back pain. Denies headaches, vision changes. Denies any fever, nausea, vomiting. Reports sweating at night on his bilateral legs, denies any re stless leg symptoms. Denies any abnormal bruising or bleeding. Appetite is good, unchanged. Energy remains poor. 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 Wears continuous oxygen at home, CPAP w/oxygen at night.Chronic productive cough in the am. Objective BSA: 2.22 meters squared Temp 36.4 C (97.5 F) Wt 104 kg (229 lb 6.4 oz) BMI 35.93 kg/m Physical Exam Vitals reviewed. Constitutional: Appearance: Normal appearance. He is obese. HENT: Head: Normocephalic and atraumatic. Nose: Nose normal. Mouth/Throat: Mouth: Mucous membranes are moist. Pharynx: Oropharynx is clear. Eyes: General: No scleral icterus. Extraocular Movements: Extraocular movements intact. Conjunctiva/sclera: Conjunctivae normal. Cardiovascular: Rate and Rhythm: Normal rate and regular rhythm. Pulses: Normal pulses. Heart sounds: Normal heart sounds. Pulmonary: Effort: Pulmonary effort is normal. Breath sounds: Decreased breath sounds present. Abdominal: General: There is no distension. Palpations: Abdomen is soft. Tenderness: There is no abdominal tenderness. Musculoskeletal: General: Swelling present. Normal range of motion. Cervical back: Normal range of motion. Right lower leg: Edema present. Left lower leg: Edema present. Skin: General: Skin is warm and dry. Coloration: Skin is pale. Findings: Bruising present. Neurological: General: No focal deficit present. Mental Status: He is alert and oriented to person, place, and time. Motor: Weakness present. Psychiatric: Mood and Affect: Mood normal. Behavior: Behavior normal. Thought Content: Thought content normal. Judgment: Judgment normal. Performance Status: Symptomatic; fully ambulatory Assessment/Plan Comorbidities GERD Arthritis, DJD BPH Coronary artery disease with history of myocardial, status post stent infarction History of dumping syndrome Hyperlipidemia History of skin cancer Obesity Obstructive sleep apnea on CPAP Peripheral arterial disease CKD 3 Diabetes with nephropathy History of cholecystectomy and hernia repair Essential tremor Hypertension Numbness in his fingers felt to be related to cervical disc disease. Monitoring Parameters Histories, physical examinations and CBCs with occasional bone marrow biopsies. Review of Systems - Oncology Review of Systems Constitutional: Positive for fatigue. Negative for appetite change and unexpected weight change. HENT: Negative for dental problem, mouth sores, nosebleeds and trouble swallowing. Eyes: Negative for visual disturbance. Respiratory: Positive for shortness of breath (with activity). Negative for cough. Cardiovascular: Positive for leg swelling. Gastrointestinal: Negative for abdominal pain, constipation, diarrhea, nausea and vomiting. Endocrine: Negative for polyuria. Genitourinary: Negative for dysuria, frequency and urgency. Musculoskeletal: Positive for arthralgias and myalgias. Skin: Positive for pallor. Negative for rash. Neurological: Negative for weakness, light-headedness, numbness and headaches. Hematological: Bruises/bleeds easily. Psychiatric/Behavioral: Negative for self-injury, sleep disturbance and suicidal ideas. The patientis not nervous/anxious. Past Medical History Medical History Past Medical History: Diagnosis Date Abnormal levels of other serum enzymes Abnormal liver enzymes Dependence on other enabling machines and devices CPAP (continuous positive airway pressure) dependence Encounter for examination of eyes and vision without abnormal findings Diabetic eye exam Localized edema Bilateral leg edema Old myocardial infarction History of myocardial infarction Other conditions influencing health status 11/09/2019 Uncontrolled diabetes mellitus type 2 without complications Pain in unspecified ankle and joints of unspecified foot Arthralgia of ankle Personal history of other diseases of the digestive system History of gastroesophageal reflux (GERD) Personal history of other diseases of the digestive system History of dumping syndrome Personal history of other endocrine, nutritional and metabolic disease 09/13/2020 History of type 2 diabetes mellitus Presence of coronary angioplasty implant and graft History of coronary artery stent placement Rash and other nonspecific skin eruption 10/12/2019 Rash Unspecified abdominal hernia without obstruction or gangrene Hernia Unspecified abdominal pain 03/20/2021 Abdominal pain, left lateral Surgical History Surgical History Past Surgical History: Procedure Laterality Date OTHER SURGICAL HISTORY 08/10/2019 Arterial stent placement OTHER SURGICAL HISTORY 08/10/2019 Cholecystectomy OTHER SURGICAL HISTORY 08/10/2019 Hernia repair Social History Social History Social History Tobacco Use Smoking status: Never Smokeless tobacco: Never Vaping Use Vaping status: Never Used Substance Use Topics Alcohol use: Never Drug use: Never Family History family history includes Colon cancer in his mother and another family member. Current Medications Current Outpatient Medications Medication Instructions allopurinol (ZYLOPRIM) 100 mg, oral, Daily amLODIPine (NORVASC) 5 mg, oral, Daily before breakfast ascorbic acid (VITAMIN C) 250 mg, oral aspirin 81 mg, oral, Daily atorvastatin (LIPITOR) 40 mg, oral, Daily blood-glucose sensor (FreeStyle [place] 3 Sensor) device Use as directed cyanocobalamin, vitamin B-12, (Vitamin B-12) 1,000 mcg tablet extended release 1 tablet, oral flash glucose scanning reader (CliftonStyle [place] 2 [place]) misc Use as instructed FreeStyle [place] 2 Sensor kit 1 each, subcutaneous, As needed, Use as instructed furosemide (LASIX) 60 mg, oral, Daily gabapentin (NEURONTIN) 300 mg, oral, 2 times daily lancets 33 gauge misc miscellaneous, 2 times daily Lantus U-100 Insulin 50 Units, subcutaneous, Nightly metoprolol tartrate (LOPRESSOR) 50 mg, oral, 2 times daily multivit-minerals/folic acid (CENTRUM ADULTS ORAL) oral nitroglycerin (NITROSTAT) 0.4 mg, sublingual, Every 5 min PRN NON FORMULARY Truetrack test In vitro strip; Use as directed to check blood sugar 2 times daily pantoprazole (PROTONIX) 40 mg, oral, 2 times daily pen needle, diabetic (Pen Needle) 32 gauge x 5/32 needle 1 each, miscellaneous, Daily primidone (MYSOLINE) 50 mg, oral, Nightly spironolactone (ALDACTONE) 25 mg, oral, Daily sucralfate (CARAFATE) 1 g, oral, 3 times daily (morning, midday, late afternoon) vitamins A,C,H-rrqw-puahcq 2,148 mcg-113 mg-45 mg-17.4mg tablet oral, SUPER VIEW Scheduled Medications OARRS Review I have personally reviewed the OARRS report for Jewel Chaves. I have considered the risks of abuse, dependence, addiction and diversion. He continues on gabapentin through primary care. Objective BSA: There is no height or weight on file to calculate BSA. There were no vitals taken for this visit. Physical Exam Vitals and nursing note reviewed. Constitutional: Appearance: Normal appearance. He is obese. HENT: Head: Normocephalic and atraumatic. Nose: Nose normal. Mouth/Throat: Mouth: Mucous membranes are moist. Pharynx: Oropharynx is clear. Eyes: General: No scleral icterus. Extraocular Movements: Extraocular movements intact. Conjunctiva/sclera: Conjunctivae normal. Cardiovascular: Rate and Rhythm: Normal rate and regular rhythm. Pulses: Normal pulses. Heart sounds: Murmur heard. Pulmonary: Effort: Pulmonary effort is normal. Breath sounds: Wheezing present. Abdominal: Palpations: Abdomen is soft. Tenderness: There is no abdominal tenderness. Comments: Large abdomen Musculoskeletal: General: Normal range of motion. Cervical back: Normal range of motion. Right lower leg: Edema present. Left lower leg: Edema present. Skin: General: Skin is warm and dry. Coloration: Skin is pale. Findings: Bruising present. Neurological: General: No focal deficit present. Mental Status: He is alert and oriented to person, place, and time. Motor: Weakness present. Psychiatric: Mood and Affect: Mood normal. Behavior: Behavior normal. Thought Content: Thought content normal. Judgment: Judgment normal. Performance Status: Symptomatic; in bed <50% of the day Assessment/Plan Recent Imaging CT chest wo IV contrast Result Date: 07/08/2024 Interpreted By: Ct Jeffers, STUDY: CT CHEST WO IV CONTRAST; 07/06/2024 1:47 pm INDICATION: Signs/Symptoms:interstitual lung disease. COMPARISON: 02/05/2024 ACCESSION NUMBER(S): [id number] ORDERING CLINICIAN: ANTIONE HARP TECHNIQUE: Helical data acquisition of the chest was obtained without IV contrast material. Images were reformatted in axial, coronal, and sagittal planes. FINDINGS: Lungs and Pleura: Mild streaky scarring in the lung bases bilaterally. The previously seen ground-glass opacities predominantly lower for low are only minimally improved. Calcified pleural plaques. No pulmonary consolidation. No pleural effusion. No pneumothorax. Mediastinum and axilla: No adenopathy by CT size criteria. Cardiomegaly. No pericardial effusion. Coronary artery calcifications. 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 Visualized Upper Abdomen: Status post cholecystectomy. Minimal hepatic steatosis. Calcified granulomas in the spleen. Somewhat atrophic pancreas. MSK/Chest Wall: Multilevel degenerative change in the spine. Stable streaky scarring in the lung bases. Only minimal improvement of previously seen ground-glassopacities. 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 Pancytopenia. The patient has unusual bone marrow findings. Chromosomal analysis will not be done due to failure of the specimen to grow. 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 He also has components of myelodysplasia. He is not responding to erythropoietin. We willincrease his dose to 500 mcg every other week. He continues to be at high risk for bleeding and infection with a low ANC and low platelet count. He has had previous GI bleeds. He is currently back onhis aspirin per follow-up with Dr. Judge for fear of clotting off his stents. He is off Eliquis. He will get his treatment today with darbepoetin and continue every 14 days. We plan for 6-month trial which will take us to September. 09/23/24: Patient tolerated last treatment well. Patient remains to have poor energy. He denies anyserious abnormal bleeding or signs of infections. Will continue with treatment as scheduled today. 2. Multiple comorbidities. 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 3. Rash on his legs. I think this looks more like stasis dermatitis than disseminated zoster. If itwere disseminated zoster he would have it on other areas of his body. Plan: Discussed and reviewed recent medical history. He will continue his Darbopoetin alpha every 2 weeks . He will call us if he has any questions or concerns. He knows that he should call in the interim should he have any change in his status, questions or concerns. SOY Paulson * Maris Kim RN - 09/23/2024 10:30 AM EST Pt got injection today Set up for next injection- on 10/10- he will be OOT on 10/07 Rtc 10/24 830 [employer] visit- shima padilla stat labs- injection to follow after his OV Reviewed AVS with patient- patient verbalizes understanding [facility] Work Phone: 1(466) 789-513811-22-2024 Instructions* Patient Instructions* SOY Paulson - 09/23/2024 10:30 AM EST Discussed and reviewed medical history Encouraged to schedule appt with Neurology as refferred by emergency room Encouraged to follow-up with primary care- Dr. العراقي Reviewed labs- hemoglobin is 8.8, WBC 1.3, ANC 0.52, Absolute Lymphocytes 0.62, Platelets 61k Will proceed with Darbepoetin Injection today Repeat labs in 2 weeks with consideratio of Darbeopoetin injection Return for follow-up with provider in 4 weeks documented in this [facility] Work Phone: [phone]) 439-190910-25-2024 History of Present illness Narrative* SOY Paulson - 08/26/2024 11:30 AM EDT Patient ID: Jewel Chaves is a 89 y.o. male. Subjective HPI Patient ID:Jewel Chaves is a 88 y.o. 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 Visit with Dr. Jose J Martin for chronic kidney disease and hypertension. Chief complaint was fatigue and need to lose weight 09/13/2019. The patient has had long-term history of microcytic anemia going back to at least 2019 at which time his white count was 5.2 hemoglobin was 13.8 hematocrit 40.5 and a platelet count of 157,000. His MCV was 105 MCHC was 34. White blood cell differential count showed 66% polys, 17 lymphs,11 monos and 4 eosinophils. 10/12/2019. Seen by primary care for probable shingles treated with Valtrex with chief complaint ofwaxing and waning left flank pain radiating up under his ribs, somewhat responsive to exercise.. Hehad a history of pulmonary embolus and was on Eliquis long-term. 12/26/2019. Seen by Dr. Rick for elevated PSA, BPH and erectile dysfunction. PSA in 2017 was 2.94, in 2018 it was 2.74 and in 2019 it was 4.03. We discussed biopsy and the patient wanted to have this followed and not biopsy. 01/09/2020. Follow-up with Jae Gannon APRN primary care. Referred to Dr. Chopra for colonoscopy and CT scan of the chest was ordered for follow-up of questionable lingular nodule. 01/11/2020. CT scan of the chest showed a stable 6 mm nodular lesion near the fissure in the lingula. 01/13/2020. Seen by Dr. Chopra who noted that the patient had had diarrhea off-and-on since cholecystectomy and had intermittent left-sided pain. He had a history of colon polyps. 02/21/2015. 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 Seen by Dr. Nancy Rios in follow-up. She noted that he had an abnormal CBC with macrocytic indices with a normal B12 level. The patient denies alcohol use. Hemoglobin A1c was 6.2. BUN was 33 creatinine was 1.74. 07/02/2020. Follow-up with Dr. Rick. PSA had come down from 4.03-3.77 11/05/2020 through 11/13/2020. Admitted to the hospital having been brought to the ED by squad after he fell forward on his toilet and was unable to get up. He denied hitting his head or losing consciousness. He blamed it on having back pain and shoulder pain for several weeks. He was febrile with a temperature of 100.9 and hypoxic with pulse ox of 86% on room air. Respirations were 24. He was positive for COVID and was treated with intravenous antibiotics and remdesivir, increased supplemental oxygen. He was able to be discharged to rehabilitation. Repeat CBC showed white count 4.3 with a hemoglobin 12.9 hematocrit 38.8 with an MCV of 102 and a platelet count of 173,000. White blood cell differential count showed minimal absolute lymphocytopenia at 0.6 with the lower limits of normal being 0.8. 12/31/2020. Follow-up with Dr. Rick. PSA was 9.9 in December. Decided to have prostate biopsy done on01/21/2021. Results showed BPH. 08/07/2021. Follow-up with Dr. Rick. PSA in July was 2.77 02/05/2022. CBC showed white count 4.3 with hemoglobin 11.7 hematocrit 34.4 with an MCV of 107. Platelet count was 153,000. White blood cell differential count was essentially normal. 04/01/2022. CBC showed white count 3.6 with hemoglobin 11.6 hematocrit 34.4 and platelet count 117,000 with a normal white blood cell differential. 04/28/2022. Referred to Dr. Parra because of pancytopenia by Emma Hawkins APRN. CBC showed a white count of 3.9 with hemoglobin 12.3 hematocrit 36.1 and platelet count 129,000 with a normal differential. PSA was 3.26. The patient said that he felt well except for having increased fatigue. He continued on long-term anticoagulation. He was able to carry out his ADLs. He did complain of easy bruising. 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 Dr. Parra felt that there was a large component secondary to his chronic kidney disease. There was no evidence of nutritional deficiency. He checked him for hemolysis and monoclonal gammopathy and ordered an ultrasound for hepatosplenomegaly and testing for hepatitis, HIV and MAURIZIO. He said he would rather observe the patient rather than pursuing a bone marrow biopsy. 05/28/2022. Repeat lab data showed white count 3.9 with hemoglobin 12.3 hematocrit 36.1 and plateletcount 129,000. BUN was 36 creatinine was 1.78. He had mild elevation of AST. Retake count was 2.3%.Flow cytometry showed a small clonal B-cell population. Hepatitis B was nonreactive. Hep C testing was negative. Serum protein electrophoresis was normal. Haptoglobin was normal. LDH was normal. He said that the possibility of MDS could not be ruled out. Ultrasound showed fatty liver but no splenomegaly. He plan for EPO level and NGS for myeloid mutation. 07/03/2022. 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 2022. Seen by Dr. Dr. العراقي. Patient was referred to dermatology for several skin lesions. He was referred to neurology because of his tremor that was not improving. She increased his glimepiride. 08/18/2022. CBC showed white count 3.0 with hemoglobin 10.5 hematocrit 31.3 and a platelet count of106,000 MCV was 111. 08/27/2022. Follow-up with Dr. 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 He was suspicious for MDS. He referred him for a bone marrow biopsy. 10/02/2022. Follow-up with Dr. Parra. Bone marrow biopsy showed low-grade MDS. R IPSS score was low or very low depending on a karyotype which was still pending. We discussed initiating erythropoietinwith Aranesp but the patient deferred and the decision was made to monitor him. 11/12/2022. CBC showed white count 3.4 with hemoglobin 10.3 hematocrit 32.2 and a platelet count of 137,000. MCV was 115. White blood cell differential count was normal. 11/14/2022. Follow-up with Dr. Parra. The patient did say that he had following getting out of the shower but did not sustain any injuries. He had been started by Dr. Martin on insulin for his diabeteswhich was helpful. Patient continued to be active inside his house. He remains on Eliquis. BR-IPSS score is very low. Counts remain stable. 01/30/2023. CBC showed a white count of 2.6 with hemoglobin 8.7 hematocrit 27.1 and a platelet count97,000. MCV was 115. White blood cell differential count showed that he had an absolute neutrophil count of 1.36. 02/09/2023. CBC showed a white count of 2.5 with a hemoglobin 9.0 hematocrit of 27.7 with a plateletcount of 92,000. MCV was 114. 02/16/2023. Follow-up with Elaine Betts APRN. Even though his hemoglobin had dropped to 9 the patient did not want to start his erythropoietin injections. 03/12/2023. CBC showed white count of 2.5 with a hemoglobin of 7.6 hematocrit 23.8 and a platelet count of 101,000. Absolute neutrophil count was 1.17. 03/16/2023 through 03/20/2023. Admitted to the hospital with anemia and generalized weakness black stools dizziness with a hemoglobin of 6.7. His BUN was [address] scan of the abdomen showed no acute process. There were findings consistent with atypical healing of the previous rib fra cture with question Paget's disease although it was nonspecific. He was transfused 2 units packed red blood cells. EGD found 3 erosions in the cardia. He was prescribed Carafate. 03/25/2023. Follow-up with Dr. Dr. العراقي after discharge. CBC showed white count 1.9 with hemoglobin 8.6 hematocrit 28.3 and a platelet count of 140,000. Absolute neutrophil count was 1.06. Patient did not tolerate Carafate and stopped it. He was prescribed oral iron twice a day. He had not beenprescribed a PPI which was then started. 04/02/2023. CBC showed white count of 1.9 with hemoglobin 7.7 hematocrit 24.8 and a platelet count of87,000. 04/14/2023. CBC showed a white count of 1.9 with hemoglobin of 8.7 hematocrit 28.1 and platelet count of 89,000. 04/24/2023. Followed up with Dr. Dr. العراقي who reported that he was hospitalized again in [place] for GI bleed. At that time his Eliquis was discontinued and he was changed to Protonix and taken off his baby aspirin. Once again he was started on Carafate but did not tolerate it. 05/16/2023. CBC showed white count of 2.4 with hemoglobin 9.2 hematocrit 27.3 and a platelet count of 110,000. Absolute neutrophil count was 1.36. 05/18/2023. Follow-up with Elaine Betts. The patient had recently had a colonoscopy and had cauterizations he noted that he had dyspnea with exertion but no resting shortness of breath. He was on prednisone at that time. His sugars were in the 300s. He was on insulin. His neuropathy has not changedand he continues to have tremors. Current level was found to be saturated. Once again the patient was reluctant to start CHRISTIE. 06/15/2023. Follow-up with Elaine Betts. CBC showed white count 1.8 with a hemoglobin 8.9 hematocrit 26.9 and a platelet count of 100,000. Absolute neutrophil count was 0.96. 07/08/2023. CBC showed a white count of 1.8 with hemoglobin 9.5 hematocrit 28.8 and a platelet count of 85,000 with an absolute neutrophil count of 0.99. 07/15/2023. Follow-up with Dr. Rick. PSA has gone down to 1.87. 08/10/2023. Follow-up with Elaine Betts who noted the patient remained on oxygen and CPAP. He says that he is awakening in the middle of the night around 3 to 4:00 in the morning. Sugars have been in the 300s. Neuropathy was unchanged. He had been started on erythropoietin every 3 weeks 09/22/2023. Follow-up with Elaine Betts. No improvement in his hemoglobin. White count had improved to 2.1 platelets were baseline. He had been placed on 40 mg of prednisone and continued on erythropoietin 300 mcg every 3 weeks. 11/03/2023. Follow-up with Elaine Betts. No improvement in hemoglobin. Symptomatically he was doing well. Plan was to increase frequency of his darbepoetin to every 2 weeks. 12/15/2023. Follow-up with Elaine Betts. Now on erythropoietin injections every 2 weeks. There was a discussion concerning repeat bone marrow biopsy with counts stayed low. 01/12/2024. Follow-up with Elaine Betts. No improvement in his hemoglobin. Patient was agreeable to repeat bone marrow biopsy. She also ordered a CAT scan of the chest abdomen and pelvis without contrast. 01/22/2024. CAT scan showed severe coronary artery calcifications. There is evidence of bronchiectasis in the lower lobes increased compared to previous CT scan from 2020. Predominantly groundglass opacities with bibasilar prominence. There is some subpleural sparing of the left upper lobe. There is a 3 mm nodule in the right upper lobe which was unchanged for several years. 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 There is a small fat-containing periumbilical hernia and bilateral inguinal hernias. Spleen size is at the upper limitsof normal being 12.7 cm in length slightly increased when compared to study from 2019. Cysts were seen in the kidneys with diffuse cortical atrophy and a 4 mm hyperdense focus in the interpolar region of the right kidney possibly a stone. Prostatism was noted for gland measuring 6.2 cm. 01/28/2024. Seen by Dr. Harp for shortness of breath. He felt the patient had possible chronic interstitial lung disease versus periodic aspiration, hypoxia dyspnea on exertion. Further tests wereordered including high-resolution CT scan, complete pulmonary function testing, simple pulmonary stress test and follow-up. 02/09/2024. Follow-up with Elaine Betts. Erythropoietin injections continued every 2 weeks which the patient was tolerating well. 02/16/2024. Bone marrow biopsy was performed showing a hypercellular bone marrow at 50% with dyserythropoiesis. There are 1% blasts consistent with persistent myeloid neoplasm. Flow cytometry showed asmall clonal CD5 negative, CD10 negative B-cell population and a polytypic background. 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 There was a very small abnormal T-cell population that could be incidental. Next generation sequencing showed 2 U2AF 1 variants, 1 of which was negative. The other had been previously seen. The marrow also showed dyserythropoiesis with bilobate forms and forms with irregular nuclear contours as well as blebbing. 02/23/2024. CBC showed white count 1.5 with a hemoglobin of 8.3 hematocrit 25.9 and platelet count of 71,000 with 37% neutrophils, 53 lymphocytes, 4 monos, 4 eosinophils with an absolute neutrophil count of 0.57. 02/24/2024. Return visit with Dr. Harp. He noted that the high-resolution CT scan showed no significant change from the previous CT scan the month before. Pulmonary function testing showed no response to bronchodilator and there was mild restrictive change with some suggestion of airway inflammation. The patient had difficulty doing the test because of persistent coughing. 6-minute walk test showed that the patient was able to maintain saturations at 93% with 2 L of oxygen per minute continuously. The test was terminated because of dyspnea. With his hypoxia on room air it was recommended that he be on oxygen continuously to keep his saturation greater than or equal to 92%. He continued on oxygen with his CPAP at 3 L at nighttime. 03/11/2024. This is my first visit with Mr. Chaves and his family. We went over some of the results of the bone marrow biopsy. I told him that I would have to wait until the chromosomal analysis returned. I also note the possibility of low-grade lymphoma. He may need to have an opinion with malignanthematology at [facility]. Stepdaughter who is here with him and his today is his advocate for maintaining his quality of life. She is an employee at a local nursing facility and is concerned about many clients she has who seem to be getting treated aggressively. 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 He will continue on this treatment for now. Heis low counts were discussed and he knows that he is at higher risk for infection and bleeding. He continues on oxygen supplementation continuously. They will return in 2 weeks at which time laboratory tests will be performed. He just had a lesion removed from the dorsum of his right hand at the base of his first and second fingers. Stitches are still in place. It seems to be healing well without any significant bleeding or infection. He was told that it looked benign. 03/14/2024. Follow-up with Dr. Vianney Judge of cardiology who saw him in follow-up of his coronary artery disease with multiple stents having been placed, hypertension, dyslipidemia and previous pulmonary embolus related to COVID-19. She had stopped his Eliquis. 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 She notedthat at some point his aspirin had been stopped but given his history of stents this was restarted and he tolerated it well. She said that his blood pressure was well- controlled. She noted blood sugars were between 150-2 50. She noted the patient was supposed to be using oxygen with exertion but the patient was not sure what rate it was supposed to be. She says that she would not stop his aspirinunless his platelets were less than 50,000 with complications of bleeding. She said it was very important to continue aspirin given a 15% chance of in-stent thrombosis with aspirin cessation. She increased her furosemide to 80 mg twice a day because of bilateral lower extremity edema and spironolactone to 25 mg twice daily until symptoms improve and encouraged him to cut back on his salt intake. She was see him again in about 9 months. 03/15/2024. Follow-up with Dr. Adams of ophthalmology who started him on Naphcon- A drops 1 drop 3 times a day in both eyes for excessive tearing 03/16/2024. Followed up with Dr. Robert Mortensen of podiatry who noted decreased pedal pulses 2 out of 4. He had footcare. 03/25/2024. Follow-up with Dr. Harp. Review of his x-rays showed no change. Physical examinationshowed decreased breath sounds but no inspiratory crackles that were previously heard. He felt thatthe interstitial lung disease was stable and that his hypoxemia was improved on oxygen. He plan to repeat CT scan in July. 03/25/2024. He is here to follow-up on his bone marrow results. I told him that the chromosomal analysis would not be forthcoming before because the specimen failed to grow in culture. 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 We reviewed the fact that he is recommended tohave at least 6 months of his erythropoietin before we decide whether or not it is a failure. He isagreeable to this. We will increase his dose of darbepoetin. He knows to be on the look out for anysigns of infection or bleeding and to report this if it happens. We reviewed his most recent CBC. We will see him again in 2 weeks with his next injection. 03/31/2024. Follow-up with Dr. Dr. العراقي for his Medicare wellness visit. His magnesium dose waschanged to twice daily indefinitely. 04/08/2024. He is here today for his darbepoetin injection. We have increased his dose to 500 mcg every 2 weeks. Will see if this has any effect. Laboratory dated today shows that his sugar is 290 and his sodium is 134. BUN is 46 and creatinine is 2.31. CBC shows white count 1.5 with a hemoglobin 8.1hematocrit 24.7 and a platelet count of 71,000 which is very much like his most recent CBC. His absolute neutrophil count is 0.57. I talked to him about his current status which he feels is fairly stable. He is off oxygen. He has had no bleeding and no signs of infection. He understands that we have increased his dose of darbepoetin and we will watch his counts. He will report any side effects. He has continued to receive his darbepoetin injections. 05/16/2024. Emergency department visit [facility]. He developed a rash on both lower extremities which started a week ago which is an erythematous papular rash. He denied any pain or itching.He did not have any vesicle formation. It is bilateral. He has had a shingles injection. He was told that he had disseminated zoster and was started on valacyclovir a gram twice daily for 7 days. 05/20/2024. Seen by Dr. Dr. العراقي who said that the rash has not gotten any worse and might be alittle bit better. She noted that there were no vesicles no open areas no areas of secondary infection. 05/20/2024. He is here to receive his erythropoietin injection and to have a blood count. I told himit is not likely that this is disseminated zoster because it is nowhere else on his body but only on his lower extremities. This could be stasis dermatitis. I do not see any signs of vesicle formation and there never were any. It is mostly on the anterior shins. It is all below the knee. CBC today shows white count 1.4 with hemoglobin 8 hematocrit 25.4 platelet count 67,000 with 37 neutrophils 53 lymphocytes 5 monos 2 eosinophils. He is serum chemistry showed a sugar of 285 BUN of 49creatinine of 2.67. We told him he needed to keep his hydration status high. He will continue with his injections today. Blood pressure today is 153/64. He has had no bleeding and no infection. He has had no chest pain or pressure. He is able to participate in his usual activities including mowing the yard. He has continued to receive his darbepoetin and has followed up with podiatry for nail and callus care. 07/01/2024. He is here in routine follow-up. He says that he is doing well. He has had no infectionsor bleeding. He has had no mouth sores. He has had continued swelling in his legs a little bit worse on the left than on the right. Blood sugar was greater than 300 but he admits to dietary indiscretion. Has had no chest pain. His blood pressure was 149/63. He says that his breathing is stable. He is using his oxygen at home at night and when he travels that he does not have it on today. His lab data has shown no sign of improvement so far with white count 1.3, hemoglobin 8.6 hematocrit 27.2 and a platelet count of 69,000. White blood cell differential count shows 38% polys, 50 lymphs, 5 monos, 2 eosinophils. We plan a 6-month trial of this dose of darbepoetin which will extend until September. We will see him again in about a month. Interval Note 07/06/2024. CT scan of the chest showed mild streaky scarring in the lung bases bilaterally. The previously seen groundglass opacities probably be minimally improved. Calcified pleural plaques are seenwithout consolidation effusion or pneumothorax. There is no adenopathy seen by CT size criteria. Minimal hepatic steatosis was seen as well as calcified granuloma in the spleen and a somewhat atrophic pancreas. DJD was seen in the spine. 07/07/2024. Seen by Dr. 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 He noted myelodysplasia and that he was being followed for his anemia receiving CHRISTIE. He did not change any of his medications And said that he would see him again in about 6 months 07/12/2024. Follow-up by Dr. Harp at which time he told the patient he could decrease his oxygento 2 and he would repeat a CT scan in 6 months and see him after that. 07/29/2024. He is here today in routine follow-up. He will get his shot today. Laboratory data showsno improvement. We reviewed that we will follow him for 6 months on this treatment to see if there is any improvement. Mr. Hernandez says that he has had no significant bleeding. I see some red spots on the soft palate. His appetite has been good and he has gained weight of 1 pound since last time I saw him about a month ago. He has had no other signs of infection or deterioration in his status. He knows he is at riskfor serious infection or bleeding. We will continue on this treatment pathway. He will see him again in a month. 08/26/24: Seen in office today by CHUCK. Appetite is decent denies any early satiety weight is stable. Energy varies day to day. 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 Isolated episode of a nose bleed. He reported waking up last night sweaty and hot, unaware if he was running a fever, encouraged him to check temperature if this should re-occur. Denies any furtherB symptoms. No serious abnormal bleeding, remains bruising easily. Reviewed labs very minimal improvement in his labs, will continue with administering the shot todayas ordered. Will continue to monitor patient closely, with a follow-up in a month. Comorbidities GERD Arthritis, DJD BPH Coronary artery disease with history of myocardial, status post stent infarction History of dumping syndrome Hyperlipidemia History of skin cancer Obesity Obstructive sleep apnea on CPAP Peripheral arterial disease CKD 3 Diabetes with nephropathy History of cholecystectomy and hernia repair Essential tremor Hypertension Numbness in his fingers felt to be related to cervical disc disease. Monitoring Parameters Histories, physical examinations and CBCs with occasional bone marrow biopsies. Review of Systems - Oncology Review of Systems Constitutional: Positive for fatigue. Negative for appetite change and unexpected weight change. HENT: Negative for dental problem, mouth sores, nosebleeds and trouble swallowing. Eyes: Negative for visual disturbance. Respiratory: Positive for shortness of breath (with activity). Negative for cough. Cardiovascular: Positive for leg swelling. Gastrointestinal: Negative for abdominal pain, constipation, diarrhea, nausea and vomiting. Endocrine: Negative for polyuria. Genitourinary: Negative for dysuria, frequency and urgency. Musculoskeletal: Positive for arthralgias and myalgias. Skin: Positive for pallor. Negative for rash. Neurological: Negative for weakness, light-headedness, numbness and headaches. Hematological: Bruises/bleeds easily. Psychiatric/Behavioral: Negative for self-injury, sleep disturbance and suicidal ideas. The patientis not nervous/anxious. Past Medical History Medical History Past Medical History: Diagnosis Date Abnormal levels of other serum enzymes Abnormal liver enzymes Dependence on other enabling machines and devices CPAP (continuous positive airway pressure) dependence Encounter for examination of eyes and vision without abnormal findings Diabetic eye exam Localized edema Bilateral leg edema Old myocardial infarction History of myocardial infarction Other conditions influencing health status 11/09/2019 Uncontrolled diabetes mellitus type 2 without complications Pain in unspecified ankle and joints of unspecified foot Arthralgia of ankle Personal history of other diseases of the digestive system History of gastroesophageal reflux (GERD) Personal history of other diseases of the digestive system History of dumping syndrome Personal history of other endocrine, nutritional and metabolic disease 09/13/2020 History of type 2 diabetes mellitus Presence of coronary angioplasty implant and graft History of coronary artery stent placement Rash and other nonspecific skin eruption 10/12/2019 Rash Unspecified abdominal hernia without obstruction or gangrene Hernia Unspecified abdominal pain 03/20/2021 Abdominal pain, left lateral Surgical History Surgical History Past Surgical History: Procedure Laterality Date OTHER SURGICAL HISTORY 08/10/2019 Arterial stent placement OTHER SURGICAL HISTORY 08/10/2019 Cholecystectomy OTHER SURGICAL HISTORY 08/10/2019 Hernia repair Social History Social History Social History Tobacco Use Smoking status: Never Smokeless tobacco: Never Vaping Use Vaping status: Never Used Substance Use Topics Alcohol use: Never Drug use: Never Family History family history includes Colon cancer in his mother and another family member. Current Medications Current Outpatient Medications Medication Instructions allopurinol (ZYLOPRIM) 100 mg, oral, Daily amLODIPine (NORVASC) 5 mg, oral, Daily before breakfast ascorbic acid (VITAMIN C) 250 mg, oral aspirin 81 mg, oral, Daily atorvastatin (LIPITOR) 40 mg, oral, Daily blood-glucose sensor (FreeStyle [place] 3 Sensor) device Use as directed cyanocobalamin, vitamin B-12, (Vitamin B-12) 1,000 mcg tablet extended release 1 tablet, oral flash glucose scanning reader ([place]if[place]Style [place] 2 [place]) misc Use as instructed FreeStyle [place] 2 Sensor kit 1 each, subcutaneous, As needed, Use as instructed furosemide (LASIX) 60 mg, oral, Daily gabapentin (NEURONTIN) 300 mg, oral, 2 times daily lancets 33 gauge misc miscellaneous, 2 times daily Lantus U-100 Insulin 50 Units, subcutaneous, Nightly metoprolol tartrate (LOPRESSOR) 50 mg, oral, 2 times daily multivit-minerals/folic acid (CENTRUM ADULTS ORAL) oral nitroglycerin (NITROSTAT) 0.4 mg, sublingual, Every 5 min PRN NON FORMULARY Truetrack test In vitro strip; Use as directed to check blood sugar 2 times daily pantoprazole (PROTONIX) 40 mg, oral, 2 times daily pen needle, diabetic (Pen Needle) 32 gauge x 5/32 needle 1 each, miscellaneous, Daily primidone (MYSOLINE) 50 mg, oral, Nightly spironolactone (ALDACTONE) 25 mg, oral, Daily sucralfate (CARAFATE) 1 g, oral, 3 times daily (morning, midday, late afternoon) vitamins A,C,[id number] 2,148 mcg-113 mg-45 mg-17.4mg tablet oral, SUPER VIEW Scheduled Medications OARRS Review I have personally reviewed the OARRS report for Jewel J Shank. I have considered the risks of abuse, dependence, addiction and diversion. He continues on gabapentin through primary care. Objective BSA: There is no height or weight on file to calculate BSA. There were no vitals taken for this visit. Physical Exam Vitals and nursing note reviewed. Constitutional: Appearance: Normal appearance. He is obese. HENT: Head: Normocephalic and atraumatic. Nose: Nose normal. Mouth/Throat: Mouth: Mucous membranes are moist. Pharynx: Oropharynx is clear. Eyes: General: No scleral icterus. Extraocular Movements: Extraocular movements intact. Conjunctiva/sclera: Conjunctivae normal. Cardiovascular: Rate and Rhythm: Normal rate and regular rhythm. Pulses: Normal pulses. Heart sounds: Murmur heard. Pulmonary: Effort: Pulmonary effort is normal. Breath sounds: Wheezing present. Abdominal: Palpations: Abdomen is soft. Tenderness: There is no abdominal tenderness. Comments: Large abdomen Musculoskeletal: General: Normal range of motion. Cervical back: Normal range of motion. Right lower leg: Edema present. Left lower leg: Edema present. Skin: General: Skin is warm and dry. Coloration: Skin is pale. Findings: Bruising present. Neurological: General: No focal deficit present. Mental Status: He is alert and oriented to person, place, and time. Motor: Weakness present. Psychiatric: Mood and Affect: Mood normal. Behavior: Behavior normal. Thought Content: Thought content normal. Judgment: Judgment normal. Performance Status: Symptomatic; in bed <50% of the day Assessment/Plan Recent Imaging CT chest wo IV contrast Result Date: 07/08/2024 Interpreted By: Ct Jeffers, STUDY: CT CHEST WO IV CONTRAST; 07/06/2024 1:47 pm INDICATION: Signs/Symptoms:interstitual lung disease. COMPARISON: 02/05/2024 ACCESSION NUMBER(S): [id number] ORDERING CLINICIAN: ANTIONE HARP TECHNIQUE: Helical data acquisition of the chest was obtained without IV contrast material. Images were reformatted in axial, coronal, and sagittal planes. FINDINGS: Lungs and Pleura: Mild streaky scarring in the lung bases bilaterally. The previously seen ground-glass opacities predominantly lower for low are only minimally improved. Calcified pleural plaques. No pulmonary consolidation. No pleural effusion. No pneumothorax. Mediastinum and axilla: No adenopathy by CT size criteria. Cardiomegaly. No pericardial effusion. Coronary artery calcifications. 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 Visualized Upper Abdomen: Status post cholecystectomy. Minimal hepatic steatosis. Calcified granulomas in the spleen. Somewhat atrophic pancreas. MSK/Chest Wall: Multilevel degenerative change in the spine. Stable streaky scarring in the lung bases. Only minimal improvement of previously seen ground-glassopacities. 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 Pancytopenia. The patient has unusual bone marrow findings. Chromosomal analysis will not be done due to failure of the specimen to grow. 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 He also has components of myelodysplasia. He is not responding to erythropoietin. We willincrease his dose to 500 mcg every other week. He continues to be at high risk for bleeding and infection with a low ANC and low platelet count. He has had previous GI bleeds. He is currently back onhis aspirin per follow-up with Dr. Judge for fear of clotting off his stents. He is off Eliquis. He will get his treatment today with darbepoetin and continue every 14 days. We plan for 6-month trial which will take us to September. 08/26/24: Patient tolerated last treatment well. No serious abnormal bleeding or signs of infections. Will continue with treatment as scheduled today. 2. Multiple comorbidities. 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 3. Rash on his legs. I think this looks more like stasis dermatitis than disseminated zoster. If itwere disseminated zoster he would have it on other areas of his body. Plan: Discussed and reviewed recent medical history. He will continue his Darbopoetin alpha every 2 weeks . He will call us if he has any questions or concerns. He knows that he should call in the interim should he have any change in his status, questions or concerns. SOY Paulson * Maris Kim RN - 08/26/2024 11:30 AM EDT Lab and injection today 09/09 10am stat lab and injection 09/23 1015 lab at infusion 1030 MD visit 1100 back over for injection after his OV Reviewed AVS with patient- patient verbalizes understanding [facility] Work Phone: 1(129) 255-688310-25-2024 Instructions* Patient Instructions* SOY Paulson - 08/26/2024 11:30 AM EDT Discussed and reviewed recent medical history. He will continue his Darbopoetin alpha every 2 weeks . He will call us if he has any questions or concerns. Return to office in 1 month when he is getting his injection. [facility] Work Phone: [phone]) 978-826110-03-2024 Evaluation + Plan note* Assessment & Plan Note - Elke Martin, SOY, DYLAN - 08/04/2024 11:17 AM EDTAssociated Problem(s): Stage 4 chronic kidney disease (Multi) Has had recent worsening of his creatinine, has been as high as 2.89, previous range was 2-2.2, will try to stop spironolactone, only at 25 mg appears that it was started for edema which is chronic, he will check his blood pressure and his weights for the next 2 weeks, will repeat lab work in 2 weeks, blood pressure appears to be well-controlled, diabetes not well-controlled, not using nephrotoxic medications, will plan on follow-up in 3 months [facility] Work Phone: 1(168) 313-877210-03-2024 Miscellaneous Notes* Assessment & Plan Note - SOY Easley DNP - 08/04/2024 11:17 AM EDTAssociated Problem(s): Stage 4 chronic kidney disease (Multi) Has had recent worsening of his creatinine, has been as high as 2.89, previous range was 2-2.2, will try to stop spironolactone, only at 25 mg appears that it was started for edema which is chronic, he will check his blood pressure and his weights for the next 2 weeks, will repeat lab work in 2 weeks, blood pressure appears to be well-controlled, diabetes not well-controlled, not using nephrotoxic medications, will plan on follow-up in 3 months * Assessment & Plan Note - SOY Easley DNP - 08/04/2024 11:16 AM EDT Associated Problem(s): Type 2 diabetes mellitus with stage 4 chronic kidney disease, with long-termcurrent use of insulin (Multi) Has been having difficulty controlling his blood sugars, currently in the 300s, does have a continuous glucose monitor, uses insulin * Assessment & Plan Note - SOY Easley DNP - 08/04/2024 11:15 AM EDT Associated Problem(s): Hypertension Blood pressure is currently well-controlled on amlodipine, metoprolol, spironolactone documented [facility] Work Phone: 1([phone]) 858-121810-03-2024 Evaluation + Plan note* Assessment & Plan Note - SOY Easley DNP - 08/04/2024 11:16 AM EDTAssociated Problem(s): Type 2 diabetes mellitus with stage 4 chronic kidney disease, with long-termcurrent use of insulin (Multi) Has been having difficulty controlling his blood sugars, currently in the 300s, does have a continuous glucose monitor, uses insulin [facility] Work Phone: [phone]) 941-378510-03-2024 Evaluation + Plan note* Assessment & Plan Note - SOY Easley DNP - 08/04/2024 11:15 AM EDTAssociated Problem(s): Hypertension Blood pressure is currently well-controlled on amlodipine, metoprolol, spironolactone [facility] Work Phone: [phone]) 750-559810-03-2024 History of Present illness Narrative* SOY Easley DNP - 08/04/2024 11:00 AM EDT Subjective Patient ID: Jewel Chaves is a 88 y.o. male who presents for No chief complaint on file.. Patient being seen in follow-up for chronic kidney disease stage IIIb/IV with baseline creatinine 2-2.2, has history of hypertension and diabetic nephropathy Labs reviewed H&H 8.4 and 25.4 CMP with a glucose of 315 Sodium 135, potassium 4.3, chloride 102, bicarb 25 Renal function with a BUN of 47 and creatinine of 2.33, GFR is 26, of note his creatinine did increase in June and July and went as high as 2.89 He is doing well He does have some mild edema of the left lower leg, he states that this has been there for quite some time, he does wear compression stockings He denies any increase in shortness of breath and states that he has been able to decrease his oxygen usage some His blood sugars have been difficult to control His blood pressure has been stable He weighs himself every day Review of Systems Constitutional: Negative. Respiratory: Negative. Cardiovascular: Positive for leg swelling. Gastrointestinal: Negative. Endocrine: Negative. Genitourinary: Negative. Musculoskeletal: Negative. Skin: Negative. Neurological: Negative. Psychiatric/Behavioral: Negative. Objective Physical Exam Vitals reviewed. Constitutional: Appearance: Normal appearance. He is obese. HENT: Head: Normocephalic. Cardiovascular: Rate and Rhythm: Normal rate and regular rhythm. Pulmonary: Effort: Pulmonary effort is normal. Breath sounds: Normal breath sounds. Abdominal: Palpations: Abdomen is soft. Musculoskeletal: General: Normal range of motion. Left lower leg: Edema (Mild, has compression stockings) present. Skin: General: Skin is warm and dry. Neurological: Mental Status: He is alert and oriented to person, place, and time. Psychiatric: Mood and Affect: Mood normal. Behavior: Behavior normal. Assessment/Plan Problem List Items Addressed This Visit ICD-10-CM Type 2 diabetes mellitus with stage 4 chronic kidney disease, with long-term current use of insulin(Multi) E11.22, N18.4, Z79.4 Has been having difficulty controlling his blood sugars, currently in the 300s, does have a continuous glucose monitor, uses insulin Hypertension I10 Blood pressure is currently well-controlled on amlodipine, metoprolol, spironolactone Mixed hyperlipidemia E78.2 Stage 4 chronic kidney disease (Multi) - Primary N18.4 Has had recent worsening of his creatinine, has been as high as 2.89, previous range was 2-2.2, will try to stop spironolactone, only at 25 mg appears that it was started for edema which is chronic, he will check his blood pressure and his weights for the next 2 weeks, will repeat lab work in 2 weeks, blood pressure appears to be well-controlled, diabetes not well-controlled, not using nephrotoxic medications, will plan on follow-up in 3 months Relevant Orders Basic metabolic panel Comprehensive metabolic panel Follow Up In Nephrology 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) N18.32, D63.1 - CKD III/IV with baseline creatinine 2-2.2 - Hypertension on amlodipine, Metorplolol, Furosemide - Diabetic Nephropathy: UPC is 0.15 - Diabetes mellitus type 2 on insulin - Bilateral lower extremity edema: Stable. - Pulmonary embolism on Eliquis - Obesity - Obstructive sleep apnea on CPAP machine and compliant - Hyperlipidemia on a statin - History of coronary artery disease on Plavix and aspirin. - B/L Renal Cyst - Hyperuricemia SOY Easley DNP 08/04/24 10:52 AM documented in [facility] Work Phone: [phone]) 923-512110-03-2024 Instructions* Patient Instructions* SOY Easley DNP - 08/04/2024 11:00 AM EDT Stop spironolactone Weigh yourself daily and record Monitor blood pressure Labs in 2 weeks Call in 2 weeks after lab work documented [facility] Work Phone: [phone]) 828-598809-27-2024 History of Present illness Narrative* Maris Kim RN - 07/29/2024 1:00 PM EDT Labs drawn on arrival Pt going over for his Darbepoetin after his visit today 08/12 1030 lab and Darbepoetin at Infusion 08/26 1200 arrival- shima will draw labs 1230 MD visit 1330 darbepoetin injection No changes made Reviewed AVS with patient- patient verbalizes understanding * Yisel Prado MD - 07/29/2024 1:00 PM EDT Patient ID:Jewel Chaves is a 88 y.o. 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 Visit with Dr. JoseJ Martin for chronic kidney disease and hypertension. Chief complaint was fatigue and need to lose weight 09/13/2019. The patient has had long-term history of microcytic anemia going back to at least 2019 at which time his white count was 5.2 hemoglobin was 13.8 hematocrit 40.5 and a platelet count of 157,000. His MCV was 105 MCHC was 34. White blood cell differential count showed 66% polys, 17 lymphs,11 monos and 4 eosinophils. 10/12/2019. Seen by primary care for probable shingles treated with Valtrex with chief complaint ofwaxing and waning left flank pain radiating up under his ribs, somewhat responsive to exercise.. Hehad a history of pulmonary embolus and was on Eliquis long-term. 12/26/2019. Seen by Dr. Rick for elevated PSA, BPH and erectile dysfunction. PSA in 2017 was 2.94, in 2017 it was 2.74 and in 2019 it was 4.03. We discussed biopsy and the patient wanted to have this followed and not biopsy. 01/09/2020. Follow-up with Jae Gannon APRN primary care. Referred to Dr. Chopra for colonoscopy and CT scan of the chest was ordered for follow-up of questionable lingular nodule. 01/11/2020. CT scan of the chest showed a stable 6 mm nodular lesion near the fissure in the lingula. 01/13/2020. Seen by Dr. Chopra who noted that the patient had had diarrhea off-and-on since cholecystectomy and had intermittent left-sided pain. He had a history of colon polyps. 02/21/2015. 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 Seen by Dr. Nancy Rios in follow-up. She noted that he had an abnormal CBC with macrocytic indices with a normal B12 level. The patient denies alcohol use. Hemoglobin A1c was 6.2. BUN was 33 creatinine was 1.74. 07/02/2020. Follow-up with Dr. Rick. PSA had come down from 4.03-3.77 11/05/2020 through 11/13/2020. Admitted to the hospital having been brought to the ED by squad after he fell forward on his toilet and was unable to get up. He denied hitting his head or losing consciousness. He blamed it on having back pain and shoulder pain for several weeks. He was febrile with a temperature of 100.9 and hypoxic with pulse ox of 86% on room air. Respirations were 24. He was positive for COVID and was treated with intravenous antibiotics and remdesivir, increased supplemental oxygen. He was able to be discharged to rehabilitation. Repeat CBC showed white count 4.3 with a hemoglobin 12.9 hematocrit 38.8 with an MCV of 102 and a platelet count of 173,000. White blood cell differential count showed minimal absolute lymphocytopenia at 0.6 with the lower limits of normal being 0.8. 12/31/2020. Follow-up with Dr. Rick. PSA was 9.9 in December. Decided to have prostate biopsy done on01/21/2021. Results showed BPH. 08/07/2021. Follow-up with Dr. Rick. PSA in July was 2.77 02/05/2022. CBC showed white count 4.3 with hemoglobin 11.7 hematocrit 34.4 with an MCV of 107. Platelet count was 153,000. White blood cell differential count was essentially normal. 04/01/2022. CBC showed white count 3.6 with hemoglobin 11.6 hematocrit 34.4 and platelet count 117,000 with a normal white blood cell differential. 04/28/2022. Referred to Dr. Parra because of pancytopenia by Emma Hawkins APRN. CBC showed a white count of 3.9 with hemoglobin 12.3 hematocrit 36.1 and platelet count 129,000 with a normal differential. PSA was 3.26. The patient said that he felt well except for having increased fatigue. He continued on long-term anticoagulation. He was able to carry out his ADLs. He did complain of easy bruising. 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 Dr. Parra felt that there was a large component secondary to his chronic kidney disease. There was no evidence of nutritional deficiency. He checked him for hemolysis and monoclonal gammopathy and ordered an ultrasound for hepatosplenomegaly and testing for hepatitis, HIV and MAURIZIO. He said he would rather observe the patient rather than pursuing a bone marrow biopsy. 05/28/2022. Repeat lab data showed white count 3.9 with hemoglobin 12.3 hematocrit 36.1 and plateletcount 129,000. BUN was 36 creatinine was 1.78. He had mild elevation of AST. Retake count was 2.3%.Flow cytometry showed a small clonal B-cell population. Hepatitis B was nonreactive. Hep C testing was negative. Serum protein electrophoresis was normal. Haptoglobin was normal. LDH was normal. He said that the possibility of MDS could not be ruled out. Ultrasound showed fatty liver but no splenomegaly. He plan for EPO level and NGS for myeloid mutation. 07/03/2022. 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 2022. Seen by Dr. Dr. العراقي. Patient was referred to dermatology for several skin lesions. He was referred to neurology because of his tremor that was not improving. She increased his glimepiride. 08/18/2022. CBC showed white count 3.0 with hemoglobin 10.5 hematocrit 31.3 and a platelet count of106,000 MCV was 111. 08/27/2022. Follow-up with Dr. 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 He was suspicious for MDS. He referred him for a bone marrow biopsy. 10/02/2022. Follow-up with Dr. Parra. Bone marrow biopsy showed low-grade MDS. R IPSS score was low or very low depending on a karyotype which was still pending. We discussed initiating erythropoietinwith Aranesp but the patient deferred and the decision was made to monitor him. 11/12/2022. CBC showed white count 3.4 with hemoglobin 10.3 hematocrit 32.2 and a platelet count of 137,000. MCV was 115. White blood cell differential count was normal. 11/14/2022. Follow-up with Dr. Parra. The patient did say that he had following getting out of the shower but did not sustain any injuries. He had been started by Dr. Martin on insulin for his diabeteswhich was helpful. Patient continued to be active inside his house. He remains on Eliquis. BR-IPSS score is very low. Counts remain stable. 01/30/2023. CBC showed a white count of 2.6 with hemoglobin 8.7 hematocrit 27.1 and a platelet count97,000. MCV was 115. White blood cell differential count showed that he had an absolute neutrophil count of 1.36. 02/09/2023. CBC showed a white count of 2.5 with a hemoglobin 9.0 hematocrit of 27.7 with a plateletcount of 92,000. MCV was 114. 02/16/2023. Follow-up with Elaine Betts APRN. Even though his hemoglobin had dropped to 9 the patient did not want to start his erythropoietin injections. 03/12/2023. CBC showed white count of 2.5 with a hemoglobin of 7.6 hematocrit 23.8 and a platelet count of 101,000. Absolute neutrophil count was 1.17. 03/16/2023 through 03/20/2023. Admitted to the hospital with anemia and generalized weakness black stools dizziness with a hemoglobin of 6.7. His BUN was [address] scan of the abdomen showed no acute process. There were findings consistent with atypical healing of the previous rib fra cture with question Paget's disease although it was nonspecific. He was transfused 2 units packed red blood cells. EGD found 3 erosions in the cardia. He was prescribed Carafate. 03/25/2023. Follow-up with Dr. Dr. العراقي after discharge. CBC showed white count 1.9 with hemoglobin 8.6 hematocrit 28.3 and a platelet count of 140,000. Absolute neutrophil count was 1.06. Patient did not tolerate Carafate and stopped it. He was prescribed oral iron twice a day. He had not beenprescribed a PPI which was then started. 04/02/2023. CBC showed white count of 1.9 with hemoglobin 7.7 hematocrit 24.8 and a platelet count of87,000. 04/14/2023. CBC showed a white count of 1.9 with hemoglobin of 8.7 hematocrit 28.1 and platelet count of 89,000. 04/24/2023. Followed up with Dr. Dr. العراقي who reported that he was hospitalized again in [place] for GI bleed. At that time his Eliquis was discontinued and he was changed to Protonix and taken off his baby aspirin. Once again he was started on Carafate but did not tolerate it. 05/16/2023. CBC showed white count of 2.4 with hemoglobin 9.2 hematocrit 27.3 and a platelet count of 110,000. Absolute neutrophil count was 1.36. 05/18/2023. Follow-up with Elaine Betts. The patient had recently had a colonoscopy and had cauterizations he noted that he had dyspnea with exertion but no resting shortness of breath. He was on prednisone at that time. His sugars were in the 300s. He was on insulin. His neuropathy has not changedand he continues to have tremors. Current level was found to be saturated. Once again the patient was reluctant to start CHRISTIE. 06/15/2023. Follow-up with Elaine Betts. CBC showed white count 1.8 with a hemoglobin 8.9 hematocrit 26.9 and a platelet count of 100,000. Absolute neutrophil count was 0.96. 07/08/2023. CBC showed a white count of 1.8 with hemoglobin 9.5 hematocrit 28.8 and a platelet count of 85,000 with an absolute neutrophil count of 0.99. 07/15/2023. Follow-up with Dr. Rick. PSA has gone down to 1.87. 08/10/2023. Follow-up with Elaine Betts who noted the patient remained on oxygen and CPAP. He says that he is awakening in the middle of the night around 3 to 4:00 in the morning. Sugars have been in the 300s. Neuropathy was unchanged. He had been started on erythropoietin every 3 weeks 09/22/2023. Follow-up with Elaine Betts. No improvement in his hemoglobin. White count had improved to 2.1 platelets were baseline. He had been placed on 40 mg of prednisone and continued on erythropoietin 300 mcg every 3 weeks. 11/03/2023. Follow-up with Elaine Betts. No improvement in hemoglobin. Symptomatically he was doing well. Plan was to increase frequency of his darbepoetin to every 2 weeks. 12/15/2023. Follow-up with Elaine Betts. Now on erythropoietin injections every 2 weeks. There was a discussion concerning repeat bone marrow biopsy with counts stayed low. 01/12/2024. Follow-up with Elaine Betts. No improvement in his hemoglobin. Patient was agreeable to repeat bone marrow biopsy. She also ordered a CAT scan of the chest abdomen and pelvis without contrast. 01/22/2024. CAT scan showed severe coronary artery calcifications. There is evidence of bronchiectasis in the lower lobes increased compared to previous CT scan from 2019. Predominantly groundglass opacities with bibasilar prominence. There is some subpleural sparing of the left upper lobe. There is a 3 mm nodule in the right upper lobe which was unchanged for several years. 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 There is a small fat-containing periumbilical hernia and bilateral inguinal hernias. Spleen size is at the upper limitsof normal being 12.7 cm in length slightly increased when compared to study from 2019. Cysts were seen in the kidneys with diffuse cortical atrophy and a 4 mm hyperdense focus in the interpolar region of the right kidney possibly a stone. Prostatism was noted for gland measuring 6.2 cm. 01/28/2024. Seen by Dr. Harp for shortness of breath. He felt the patient had possible chronic interstitial lung disease versus periodic aspiration, hypoxia dyspnea on exertion. Further tests wereordered including high-resolution CT scan, complete pulmonary function testing, simple pulmonary stress test and follow-up. 02/09/2024. Follow-up with Elaine Betts. Erythropoietin injections continued every 2 weeks which the patient was tolerating well. 02/16/2024. Bone marrow biopsy was performed showing a hypercellular bone marrow at 50% with dyserythropoiesis. There are 1% blasts consistent with persistent myeloid neoplasm. Flow cytometry showed asmall clonal CD5 negative, CD10 negative B-cell population and a polytypic background. 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 There was a very small abnormal T-cell population that could be incidental. Next generation sequencing showed 2 U2AF 1 variants, 1 of which was negative. The other had been previously seen. The marrow also showed dyserythropoiesis with bilobate forms and forms with irregular nuclear contours as well as blebbing. 02/23/2024. CBC showed white count 1.5 with a hemoglobin of 8.3 hematocrit 25.9 and platelet count of 71,000 with 37% neutrophils, 53 lymphocytes, 4 monos, 4 eosinophils with an absolute neutrophil count of 0.57. 02/24/2024. Return visit with Dr. Harp. He noted that the high-resolution CT scan showed no significant change from the previous CT scan the month before. Pulmonary function testing showed no response to bronchodilator and there was mild restrictive change with some suggestion of airway inflammation. The patient had difficulty doing the test because of persistent coughing. 6-minute walk test showed that the patient was able to maintain saturations at 93% with 2 L of oxygen per minute continuously. The test was terminated because of dyspnea. With his hypoxia on room air it was recommended that he be on oxygen continuously to keep his saturation greater than or equal to 92%. He continued on oxygen with his CPAP at 3 L at nighttime. 03/11/2024. This is my first visit with Mr. Chaves and his family. We went over some of the results of the bone marrow biopsy. I told him that I would have to wait until the chromosomal analysis returned. I also note the possibility of low-grade lymphoma. He may need to have an opinion with [facility]hematology at [facility]. Stepdaughter who is here with him and his today is his advocate for maintaining his quality of life. She is an employee at a local nursing facility and is concerned about many clients she has who seem to be getting treated aggressively. 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 He will continue on this treatment for now. Heis low counts were discussed and he knows that he is at higher risk for infection and bleeding. He continues on oxygen supplementation continuously. They will return in 2 weeks at which time laboratory tests will be performed. He just had a lesion removed from the dorsum of his right hand at the base of his first and second fingers. Stitches are still in place. It seems to be healing well without any significant bleeding or infection. He was told that it looked benign. 03/14/2024. Follow-up with Dr. Vianney Judge of cardiology who saw him in follow-up of his coronary artery disease with multiple stents having been placed, hypertension, dyslipidemia and previous pulmonary embolus related to COVID-19. She had stopped his Eliquis. 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 She notedthat at some point his aspirin had been stopped but given his history of stents this was restarted and he tolerated it well. She said that his blood pressure was well- controlled. She noted blood sugars were between 150-2 50. She noted the patient was supposed to be using oxygen with exertion but the patient was not sure what rate it was supposed to be. She says that she would not stop his aspirinunless his platelets were less than 50,000 with complications of bleeding. She said it was very important to continue aspirin given a 15% chance of in-stent thrombosis with aspirin cessation. She increased her furosemide to 80 mg twice a day because of bilateral lower extremity edema and spironolactone to 25 mg twice daily until symptoms improve and encouraged him to cut back on his salt intake. She was see him again in about 9 months. 03/15/2024. Follow-up with Dr. Adams of ophthalmology who started him on Naphcon- A drops 1 drop 3 times a day in both eyes for excessive tearing 03/16/2024. Followed up with Dr. Robert Mortensen of podiatry who noted decreased pedal pulses 2 out of 4. He had footcare. 03/25/2024. Follow-up with Dr. Harp. Review of his x-rays showed no change. Physical examinationshowed decreased breath sounds but no inspiratory crackles that were previously heard. He felt thatthe interstitial lung disease was stable and that his hypoxemia was improved on oxygen. He plan to repeat CT scan in July. 03/25/2024. He is here to follow-up on his bone marrow results. I told him that the chromosomal analysis would not be forthcoming before because the specimen failed to grow in culture. 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 We reviewed the fact that he is recommended tohave at least 6 months of his erythropoietin before we decide whether or not it is a failure. He isagreeable to this. We will increase his dose of darbepoetin. He knows to be on the look out for anysigns of infection or bleeding and to report this if it happens. We reviewed his most recent CBC. We will see him again in 2 weeks with his next injection. 03/31/2024. Follow-up with Dr. Dr. العراقي for his Medicare wellness visit. His magnesium dose waschanged to twice daily indefinitely. 04/08/2024. He is here today for his darbepoetin injection. We have increased his dose to 500 mcg every 2 weeks. Will see if this has any effect. Laboratory dated today shows that his sugar is 290 and his sodium is 134. BUN is 46 and creatinine is 2.31. CBC shows white count 1.5 with a hemoglobin 8.1hematocrit 24.7 and a platelet count of 71,000 which is very much like his most recent CBC. His absolute neutrophil count is 0.57. I talked to him about his current status which he feels is fairly stable. He is off oxygen. He has had no bleeding and no signs of infection. He understands that we have increased his dose of darbepoetin and we will watch his counts. He will report any side effects. He has continued to receive his darbepoetin injections. 05/16/2024. Emergency department [facility]. He developed a rash on both lower extremities which started a week ago which is an erythematous papular rash. He denied any pain or itching.He did not have any vesicle formation. It is bilateral. He has had a shingles injection. He was told that he had disseminated zoster and was started on valacyclovir a gram twice daily for 7 days. 05/20/2024. Seen by Dr. Dr. العراقي who said that the rash has not gotten any worse and might be alittle bit better. She noted that there were no vesicles no open areas no areas of secondary infection. 05/20/2024. He is here to receive his erythropoietin injection and to have a blood count. I told himit is not likely that this is disseminated zoster because it is nowhere else on his body but only on his lower extremities. This could be stasis dermatitis. I do not see any signs of vesicle formation and there never were any. It is mostly on the anterior shins. It is all below the knee. CBC today shows white count 1.4 with hemoglobin 8 hematocrit 25.4 platelet count 67,000 with 37 neutrophils 53 lymphocytes 5 monos 2 eosinophils. He is serum chemistry showed a sugar of 285 BUN of 49creatinine of 2.67. We told him he needed to keep his hydration status high. He will continue with his injections today. Blood pressure today is 153/64. He has had no bleeding and no infection. He has had no chest pain or pressure. He is able to participate in his usual activities including mowing the yard. He has continued to receive his darbepoetin and has followed up with podiatry for nail and callus care. 07/01/2024. He is here in routine follow-up. He says that he is doing well. He has had no infectionsor bleeding. He has had no mouth sores. He has had continued swelling in his legs a little bit worse on the left than on the right. Blood sugar was greater than 300 but he admits to dietary indiscretion. Has had no chest pain. His blood pressure was 149/63. He says that his breathing is stable. He is using his oxygen at home at night and when he travels that he does not have it on today. His lab data has shown no sign of improvement so far with white count 1.3, hemoglobin 8.6 hematocrit 27.2 and a platelet count of 69,000. White blood cell differential count shows 38% polys, 50 lymphs, 5 monos, 2 eosinophils. We plan a 6-month trial of this dose of darbepoetin which will extend until September. We will see him again in about a month. Interval Note 07/06/2024. CT scan of the chest showed mild streaky scarring in the lung bases bilaterally. The previously seen groundglass opacities probably be minimally improved. Calcified pleural plaques are seenwithout consolidation effusion or pneumothorax. There is no adenopathy seen by CT size criteria. Minimal hepatic steatosis was seen as well as calcified granuloma in the spleen and a somewhat atrophic pancreas. DJD was seen in the spine. 07/07/2024. Seen by Dr. 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 He noted myelodysplasia and that he was being followed for his anemia receiving CHRISTIE. He did not change any of his medications And said that he would see him again in about 6 months 07/12/2024. Follow-up by Dr. Harp at which time he told the patient he could decrease his oxygento 2 and he would repeat a CT scan in 6 months and see him after that. 07/29/2024. He is here today in routine follow-up. He will get his shot today. Laboratory data showsno improvement. We reviewed that we will follow him for 6 months on this treatment to see if there is any improvement. Mr. Hernandez says that he has had no significant bleeding. I see some red spots on the soft palate. His appetite has been good and he has gained weight of 1 pound since last time I saw him about a month ago. He has had no other signs of infection or deterioration in his status. He knows he is at riskfor serious infection or bleeding. We will continue on this treatment pathway. He will see him again in a month. Comorbidities GERD Arthritis, DJD BPH Coronary artery disease with history of myocardial, status post stent infarction History of dumping syndrome Hyperlipidemia History of skin cancer Obesity Obstructive sleep apnea on CPAP Peripheral arterial disease CKD 3 Diabetes with nephropathy History of cholecystectomy and hernia repair Essential tremor Hypertension Numbness in his fingers felt to be related to cervical disc disease. Monitoring Parameters Histories, physical examinations and CBCs with occasional bone marrow biopsies. Review of Systems - Oncology Review of Systems Constitutional: Positive for fatigue. Negative for appetite change and unexpected weight change. HENT: Negative for dental problem, mouth sores, nosebleeds and trouble swallowing. Eyes: Negative for visual disturbance. Respiratory: Positive for shortness of breath (with activity). Negative for cough. Cardiovascular: Positive for leg swelling. Gastrointestinal: Negative for abdominal pain, constipation, diarrhea, nausea and vomiting. Endocrine: Negative for polyuria. Genitourinary: Negative for dysuria, frequency and urgency. Musculoskeletal: Positive for arthralgias and myalgias. Skin: Positive for pallor. Negative for rash. Neurological: Negative for weakness, light-headedness, numbness and headaches. Hematological: Bruises/bleeds easily. Psychiatric/Behavioral: Negative for self-injury, sleep disturbance and suicidal ideas. The patientis not nervous/anxious. Past Medical History Past Medical History: Diagnosis Date Abnormal levels of other serum enzymes Abnormal liver enzymes Dependence on other enabling machines and devices CPAP (continuous positive airway pressure) dependence Encounter for examination of eyes and vision without abnormal findings Diabetic eye exam Localized edema Bilateral leg edema Old myocardial infarction History of myocardial infarction Other conditions influencing health status 11/09/2019 Uncontrolled diabetes mellitus type 2 without complications Pain in unspecified ankle and joints of unspecified foot Arthralgia of ankle Personal history of other diseases of the digestive system History of gastroesophageal reflux (GERD) Personal history of other diseases of the digestive system History of dumping syndrome Personal history of other endocrine, nutritional and metabolic disease 09/13/2020 History of type 2 diabetes mellitus Presence of coronary angioplasty implant and graft History of coronary artery stent placement Rash and other nonspecific skin eruption 10/12/2019 Rash Unspecified abdominal hernia without obstruction or gangrene Hernia Unspecified abdominal pain 03/20/2021 Abdominal pain, left lateral Surgical History Past Surgical History: Procedure Laterality Date OTHER SURGICAL HISTORY 08/10/2019 Arterial stent placement OTHER SURGICAL HISTORY 08/10/2019 Cholecystectomy OTHER SURGICAL HISTORY 08/10/2019 Hernia repair Social History Social History Tobacco Use Smoking status: Never Smokeless tobacco: Never Vaping Use Vaping status: Never Used Substance Use Topics Alcohol use: Never Drug use: Never Family History family history includes Colon cancer in his mother and another family member. Current Medications Current Outpatient Medications Medication Instructions allopurinol (ZYLOPRIM) 100 mg, oral, Daily amLODIPine (NORVASC) 5 mg, oral, Daily before breakfast ascorbic acid (VITAMIN C) 250 mg, oral aspirin 81 mg, oral, Daily atorvastatin (LIPITOR) 40 mg, oral, Daily blood-glucose sensor (CliftonStyle [place] 3 Sensor) device Use as directed cyanocobalamin, vitamin B-12, (Vitamin B-12) 1,000 mcg tablet extended release 1 tablet, oral flash glucose scanning reader ([place]Style [place] 2 [place]) [facility] Use as instructed FreeStyle [place] 2 Sensor kit 1 each, subcutaneous, As needed, Use as instructed furosemide (LASIX) 60 mg, oral, Daily gabapentin (NEURONTIN) 300 mg, oral, 2 times daily lancets 33 gauge misc miscellaneous, 2 times daily Lantus U-100 Insulin 50 Units, subcutaneous, Nightly metoprolol tartrate (LOPRESSOR) 50 mg, oral, 2 times daily multivit-minerals/folic acid (CENTRUM ADULTS ORAL) oral nitroglycerin (NITROSTAT) 0.4 mg, sublingual, Every 5 min PRN NON FORMULARY Truetrack test In vitro strip; Use as directed to check blood sugar 2 times daily pantoprazole (PROTONIX) 40 mg, oral, 2 times daily pen needle, diabetic (Pen Needle) 32 gauge x /32 needle 1 each, miscellaneous, Daily primidone (MYSOLINE) 50 mg, oral, Nightly spironolactone (ALDACTONE) 25 mg, oral, Daily sucralfate (CARAFATE) 1 g, oral, 3 times daily (morning, midday, late afternoon) vitamins A,C,P-dqsv-tvxjft 2,148 mcg-113 mg-45 mg-17.4mg tablet oral, SUPER [place]IEW OARRS Review I have personally reviewed the OARRS report for Jewel Chaves. I have considered the risks of abuse, dependence, addiction and diversion. He continues on gabapentin through primary care. Vital Signs BP 125/69 Pulse 71 Temp 36.2 C (97.2 F) Resp 20 Wt 105 kg (231 lb) SpO2 90% BMI 36.18 kg/m Physical Exam Vitals and nursing note reviewed. Exam conducted with a hold worker present. Constitutional: General: He is not in acute distress. Appearance: He is obese. He is ill-appearing. He is not toxic-appearing. Comments: He is a well-developed well-nourished overweight elderly white male who is unaccompanied again today. He does not have his oxygen on. He appears to be minimally chronically ill and pale. Heis in good spirits. HENT: Head: Normocephalic and atraumatic. Nose: Nose normal. Mouth/Throat: Mouth: Mucous membranes are moist. Pharynx: Oropharynx is clear. Posterior oropharyngeal erythema present. No oropharyngeal exudate. Comments: He does have several areas of erythema on the soft palate on the right side. He has no evidence of thrush. Eyes: General: No scleral icterus. Extraocular Movements: Extraocular movements intact. Conjunctiva/sclera: Conjunctivae normal. Pupils: Pupils are equal, round, and reactive to light. Neck: Comments: No significant lymphadenopathy is palpated in the head neck region, supraclavicular or axillary areas bilaterally. Cardiovascular: Rate and Rhythm: Normal rate and regular rhythm. Heart sounds: Murmur (flow murmur) heard. Pulmonary: Effort: Pulmonary effort is normal. Breath sounds: Wheezing present. No rhonchi or rales. Comments: He is not on oxygen today. Abdominal: General: There is no distension. Palpations: Abdomen is soft. There is no mass. Tenderness: There is no abdominal tenderness. There is no guarding or rebound. Musculoskeletal: General: Normal range of motion. Cervical back: Normal range of motion. No rigidity or tenderness. Right lower leg: Edema present. Left lower leg: Edema present. Lymphadenopathy: Cervical: No cervical adenopathy. Skin: General: Skin is warm and dry. Coloration: Skin is pale. Skin is not jaundiced. Comments: Scattered bruises mostly on his arms Neurological: General: No focal deficit present. Mental Status: He is alert and oriented to person, place, and time. Mental status is at baseline. Cranial Nerves: Cranial nerve deficit present. Motor: No weakness. Gait: Gait normal. Comments: He is hard of hearing Psychiatric: Mood and Affect: Mood normal. Behavior: Behavior normal. Thought Content: Thought content normal. Judgment: Judgment normal. Comments: He is pleasant and interactive. Current Laboratory Data Recent Results (from the past 168 hour(s)) Comprehensive Metabolic Panel Collection Time: 07/29/24 1:05 PM Result Value Ref Range Glucose 315 (H) 74 - 99 mg/dL Sodium 135 (L) 136 - 145 mmol/L Potassium 4.3 3.5 - 5.3 mmol/L Chloride 102 98 - 107 mmol/L Bicarbonate 25 21 - 32 mmol/L Anion Gap 12 10 - 20 mmol/L Urea Nitrogen 47 (H) 6 - 23 mg/dL Creatinine 2.33 (H) 0.50 - 1.30 mg/dL eGFR 26 (L) >60 mL/min/1.73m*2 Calcium 9.0 8.6 - 10.3 mg/dL Albumin 3.9 3.4 - 5.0 g/dL Alkaline Phosphatase 91 33 - 136 U/L Total Protein 6.1 (L) 6.4 - 8.2 g/dL AST 31 9 - 39 U/L Bilirubin, Total 1.2 0.0 - 1.2 mg/dL ALT 19 10 - 52 U/L CBC and Auto Differential Collection Time: 07/29/24 1:05 PM Result Value Ref Range WBC 1.3 (L) 4.4 - 11.3 x10*3/uL nRBC 0.0 0.0 - 0.0 /100 WBCs RBC 2.40 (L) 4.50 - 5.90 x10*6/uL Hemoglobin 8.4 (L) 13.5 - 17.5 g/dL Hematocrit 25.4 (L) 41.0 - 52.0 % MCV 106 (H) 80 - 100 fL MCH 35.0 (H) 26.0 - 34.0 pg MCHC 33.1 32.0 - 36.0 g/dL RDW 20.0 (H) 11.5 - 14.5 % Platelets 51 (L) 150 - 450 x10*3/uL Neutrophils % Immature Granulocytes %, Automated Lymphocytes % Monocytes % Eosinophils % Basophils % Neutrophils Absolute Lymphocytes Absolute Monocytes Absolute Eosinophils Absolute Basophils Absolute Recent Imaging CT chest wo IV contrast Result Date: 07/08/2024 Interpreted By: Ct Jeffers, STUDY: CT CHEST WO IV CONTRAST; 07/06/2024 1:47 pm INDICATION: Signs/Symptoms:interstitual lung disease. COMPARISON: 02/05/2024 ACCESSION NUMBER(S): [id number] ORDERING CLINICIAN: ANTIONE HARP TECHNIQUE: Helical data acquisition of the chest was obtained without IV contrast material. Images were reformatted in axial, coronal, and sagittal planes. FINDINGS: Lungs and Pleura: Mild streaky scarring in the lung bases bilaterally. The previously seen ground-glass opacities predominantly lower for low are only minimally improved. Calcified pleural plaques. No pulmonary consolidation. No pleural effusion. No pneumothorax. Mediastinum and axilla: No adenopathy by CT size criteria. Cardiomegaly. No pericardial effusion. Coronary artery calcifications. 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 Visualized Upper Abdomen: Status post cholecystectomy. Minimal hepatic steatosis. Calcified granulomas in the spleen. Somewhat atrophic pancreas. MSK/Chest Wall: Multilevel degenerative change in the spine. Stable streaky scarring in the lung bases. Only minimal improvement of previously seen ground-glassopacities. 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 Pancytopenia. The patient has unusual bone marrow findings. Chromosomal analysis will not be done due to failure of the specimen to grow. 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 He also has components of myelodysplasia. He is not responding to erythropoietin. We willincrease his dose to 500 mcg every other week. He continues to be at high risk for bleeding and infection with a low ANC and low platelet count. He has had previous GI bleeds. He is currently back onhis aspirin per follow-up with Dr. Judge for fear of clotting off his stents. He is off Eliquis. He will get his treatment today with darbepoetin and continue every 14 days. We plan for 6-month trial which will take us to September. . 2. Multiple comorbidities. 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 3. Rash on his legs. I think this looks more like stasis dermatitis than disseminated zoster. If itwere disseminated zoster he would have it on other areas of his body. We will see him again in about a month. He will continue his shots every 2 weeks. He knows that he should call in the interim should he have any change in his status, questions or concerns. Yisel Prado MD [facility] Work Phone: [phone]) 501-796709-27-2024 Instructions* Patient Instructions* Yisel Prado MD - 07/29/2024 1:00 PM EDT reviewed labs and recent medical history. He will continue his Darbopoetin alpha every 2 weeks . He will call us if he has any questions or concerns. See MD in 1 month when he is getting his injection. [facility] Work Phone: [phone] 129-291109-10-2024 History of Present illness Narrative* Antione Harp DO - 07/12/2024 10:00 AM EDT Subjective Patient ID: Jewel Chaves is a 88 y.o. male who presents for No chief complaint on file.. HPI Patient was seen today in the office to review his x-ray findings and his breathing. He is accompanied by his , Angeli. Patient's oxygen saturation on OCD at #3 was 96% and a #2 was 95%. He reports having a mild cough with some clear sputum production no hemoptysis or wheezing. The patient does have some dyspnea with walking from his car to the office. Review of Systems Patient denies having any fever, chills, rhinitis or sore throat. He is not a smoker. Objective Physical Exam Pulmonary, decreased breath sounds with no adventitious sounds appreciated. Cardio, heart sounds were regular rate and rhythm. Extremities, no cyanosis, clubbing or pretibial edema. Psych, the patient is alert and oriented x 3. The patient does not appear dyspneic with activity in the office today. Assessment/Plan Impressions: 1. Review of the patient's most recent CT of the chest without contrast on 07/06/2024 shows significant improvement in the groundglass infiltrates noted on his earlier study from 02/05/2024. There is no evidence of lung masses or nodules. The patient himself feels that his breathing is also improved. Recommendations: 1. Told the patient he can decrease his oxygen to #2 or 2 L/min. 2. Repeat CT scan of the chest in 6 months and we will follow-up with him afterwards. This note was transcribed using the [employer] Dictation system. There may be grammatical, punctuation,or verbiage errors that occur with voice recognition programs. Antione Harp DO 07/12/24 4:49 PM documented in this [facility] Work Phone: [phone] 157-930808-30-2024 History of Present illness Narrative* Yisel Prado MD - 07/01/2024 1:00 PM EDT Patient ID:Jewel Chaves is a 88 y.o. year old male patient with myelodysplasia Referring Physician: iYsel Prado MD [address] [place] [address] [address] [place] [address] Primary Care Provider: Palmira العراقي MD Chief Complaint Chief Complaint Patient presents with Anemia History of the Present Illness 08/10/2019. Visit with Dr. Jose J Martin for chronic kidney disease and hypertension. Chief complaint was fatigue and need to lose weight 09/13/2019. The patient has had long-term history of microcytic anemia going back to at least 2019 at which time his white count was 5.2 hemoglobin was 13.8 hematocrit 40.5 and a platelet count of 157,000. His MCV was 105 MCHC was 34. White blood cell differential count showed 66% polys, 17 lymphs,11 monos and 4 eosinophils. 10/12/2019. Seen by primary care for probable shingles treated with Valtrex with chief complaint ofwaxing and waning left flank pain radiating up under his ribs, somewhat responsive to exercise.. Hehad a history of pulmonary embolus and was on Eliquis long-term. 12/26/2019. Seen by Dr. Rick for elevated PSA, BPH and erectile dysfunction. PSA in 2017 was 2.94, in 2018 it was 2.74 and in 2019 it was 4.03. We discussed biopsy and the patient wanted to have this followed and not biopsy. 01/09/2020. Follow-up with Jae Gannon APRN primary care. Referred to Dr. Chopra for colonoscopy and CT scan of the chest was ordered for follow-up of questionable lingular nodule. 01/11/2020. CT scan of the chest showed a stable 6 mm nodular lesion near the fissure in the lingula. 01/13/2020. Seen by Dr. Chopra who noted that the patient had had diarrhea off-and-on since cholecystectomy and had intermittent left-sided pain. He had a history of colon polyps. 02/21/2015. 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 Seen by Dr. Nancy Rios in follow-up. She noted that he had an abnormal CBC with macrocytic indices with a normal B12 level. The patient denies alcohol use. Hemoglobin A1c was 6.2. BUN was 33 creatinine was 1.74. 07/02/2020. Follow-up with Dr. Rick. PSA had come down from 4.03-3.77 11/05/2020 through 11/13/2020. Admitted to the hospital having been brought to the ED by squad after he fell forward on his toilet and was unable to get up. He denied hitting his head or losing consciousness. He blamed it on having back pain and shoulder pain for several weeks. He was febrile with a temperature of 100.9 and hypoxic with pulse ox of 86% on room air. Respirations were 24. He was positive for COVID and was treated with intravenous antibiotics and remdesivir, increased supplemental oxygen. He was able to be discharged to rehabilitation. Repeat CBC showed white count 4.3 with a hemoglobin 12.9 hematocrit 38.8 with an MCV of 102 and a platelet count of 173,000. White blood cell differential count showed minimal absolute lymphocytopenia at 0.6 with the lower limits of normal being 0.8. 12/31/2020. Follow-up with Dr. Rick. PSA was 9.9 in December. Decided to have prostate biopsy done on01/21/2021. Results showed BPH. 08/07/2021. Follow-up with Dr. Rick. PSA in July was 2.77 02/05/2022. CBC showed white count 4.3 with hemoglobin 11.7 hematocrit 34.4 with an MCV of 107. Platelet count was 153,000. White blood cell differential count was essentially normal. 04/01/2022. CBC showed white count 3.6 with hemoglobin 11.6 hematocrit 34.4 and platelet count 117,000 with a normal white blood cell differential. 04/28/2022. Referred to Dr. Parra because of pancytopenia by Emma Hawkins APRN. CBC showed a white count of 3.9 with hemoglobin 12.3 hematocrit 36.1 and platelet count 129,000 with a normal differential. PSA was 3.26. The patient said that he felt well except for having increased fatigue. He continued on long-term anticoagulation. He was able to carry out his ADLs. He did complain of easy bruising. 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 Dr. Parra felt that there was a large component secondary to his chronic kidney disease. There was no evidence of nutritional deficiency. He checked him for hemolysis and monoclonal gammopathy and ordered an ultrasound for hepatosplenomegaly and testing for hepatitis, HIV and MAURIZIO. He said he would rather observe the patient rather than pursuing a bone marrow biopsy. 05/28/2022. Repeat lab data showed white count 3.9 with hemoglobin 12.3 hematocrit 36.1 and plateletcount 129,000. BUN was 36 creatinine was 1.78. He had mild elevation of AST. Retake count was 2.3%.Flow cytometry showed a small clonal B-cell population. Hepatitis B was nonreactive. Hep C testing was negative. Serum protein electrophoresis was normal. Haptoglobin was normal. LDH was normal. He said that the possibility of MDS could not be ruled out. Ultrasound showed fatty liver but no splenomegaly. He plan for EPO level and NGS for myeloid mutation. 07/03/2022. 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 2022. Seen by Dr. Dr. العراقي. Patient was referred to dermatology for several skin lesions. He was referred to neurology because of his tremor that was not improving. She increased his glimepiride. 08/18/2022. CBC showed white count 3.0 with hemoglobin 10.5 hematocrit 31.3 and a platelet count of106,000 MCV was 111. 08/27/2022. Follow-up with Dr. 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 He was suspicious for MDS. He referred him for a bone marrow biopsy. 10/02/2022. Follow-up with Dr. Parra. Bone marrow biopsy showed low-grade MDS. R IPSS score was low or very low depending on a karyotype which was still pending. We discussed initiating erythropoietinwith Aranesp but the patient deferred and the decision was made to monitor him. 11/12/2022. CBC showed white count 3.4 with hemoglobin 10.3 hematocrit 32.2 and a platelet count of 137,000. MCV was 115. White blood cell differential count was normal. 11/14/2022. Follow-up with Dr. Parra. The patient did say that he had following getting out of the shower but did not sustain any injuries. He had been started by Dr. Martin on insulin for his diabeteswhich was helpful. Patient continued to be active inside his house. He remains on Eliquis. BR-IPSS score is very low. Counts remain stable. 01/30/2023. CBC showed a white count of 2.6 with hemoglobin 8.7 hematocrit 27.1 and a platelet count97,000. MCV was 115. White blood cell differential count showed that he had an absolute neutrophil count of 1.36. 02/09/2023. CBC showed a white count of 2.5 with a hemoglobin 9.0 hematocrit of 27.7 with a plateletcount of 92,000. MCV was 114. 02/16/2023. Follow-up with Elaine Betts APRN. Even though his hemoglobin had dropped to 9 the patient did not want to start his erythropoietin injections. 03/12/2023. CBC showed white count of 2.5 with a hemoglobin of 7.6 hematocrit 23.8 and a platelet count of 101,000. Absolute neutrophil count was 1.17. 03/16/2023 through 03/20/2023. Admitted to the hospital with anemia and generalized weakness black stools dizziness with a hemoglobin of 6.7. His BUN was [address] scan of the abdomen showed no acute process. There were findings consistent with atypical healing of the previous rib fra cture with question Paget's disease although it was nonspecific. He was transfused 2 units packed red blood cells. EGD found 3 erosions in the cardia. He was prescribed Carafate. 03/25/2023. Follow-up with Dr. Dr. العراقي after discharge. CBC showed white count 1.9 with hemoglobin 8.6 hematocrit 28.3 and a platelet count of 140,000. Absolute neutrophil count was 1.06. Patient did not tolerate Carafate and stopped it. He was prescribed oral iron twice a day. He had not beenprescribed a PPI which was then started. 04/02/2023. CBC showed white count of 1.9 with hemoglobin 7.7 hematocrit 24.8 and a platelet count of87,000. 04/14/2023. CBC showed a white count of 1.9 with hemoglobin of 8.7 hematocrit 28.1 and platelet count of 89,000. 04/24/2023. Followed up with Dr. Dr. العراقي who reported that he was hospitalized again in [place] for GI bleed. At that time his Eliquis was discontinued and he was changed to Protonix and taken off his baby aspirin. Once again he was started on Carafate but did not tolerate it. 05/16/2023. CBC showed white count of 2.4 with hemoglobin 9.2 hematocrit 27.3 and a platelet count of 110,000. Absolute neutrophil count was 1.36. 05/18/2023. Follow-up with Elaine Betts. The patient had recently had a colonoscopy and had cauterizations he noted that he had dyspnea with exertion but no resting shortness of breath. He was on prednisone at that time. His sugars were in the 300s. He was on insulin. His neuropathy has not changedand he continues to have tremors. Current level was found to be saturated. Once again the patient was reluctant to start CHRISTIE. 06/15/2023. Follow-up with Elaine Betts. CBC showed white count 1.8 with a hemoglobin 8.9 hematocrit 26.9 and a platelet count of 100,000. Absolute neutrophil count was 0.96. 07/08/2023. CBC showed a white count of 1.8 with hemoglobin 9.5 hematocrit 28.8 and a platelet count of 85,000 with an absolute neutrophil count of 0.99. 07/15/2023. Follow-up with Dr. Rick. PSA has gone down to 1.87. 08/10/2023. Follow-up with Elaine Betts who noted the patient remained on oxygen and CPAP. He says that he is awakening in the middle of the night around 3 to 4:00 in the morning. Sugars have been in the 300s. Neuropathy was unchanged. He had been started on erythropoietin every 3 weeks 09/22/2023. Follow-up with Elaine Betts. No improvement in his hemoglobin. White count had improved to 2.1 platelets were baseline. He had been placed on 40 mg of prednisone and continued on erythropoietin 300 mcg every 3 weeks. 11/03/2023. Follow-up with Elaine Betts. No improvement in hemoglobin. Symptomatically he was doing well. Plan was to increase frequency of his darbepoetin to every 2 weeks. 12/15/2023. Follow-up with Elaine Betts. Now on erythropoietin injections every 2 weeks. There was a discussion concerning repeat bone marrow biopsy with counts stayed low. 01/12/2024. Follow-up with Elaine Betts. No improvement in his hemoglobin. Patient was agreeable to repeat bone marrow biopsy. She also ordered a CAT scan of the chest abdomen and pelvis without contrast. 01/22/2024. CAT scan showed severe coronary artery calcifications. There is evidence of bronchiectasis in the lower lobes increased compared to previous CT scan from 2019. Predominantly groundglass opacities with bibasilar prominence. There is some subpleural sparing of the left upper lobe. There is a 3 mm nodule in the right upper lobe which was unchanged for several years. 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 There is a small fat-containing periumbilical hernia and bilateral inguinal hernias. Spleen size is at the upper limitsof normal being 12.7 cm in length slightly increased when compared to study from 2019. Cysts were seen in the kidneys with diffuse cortical atrophy and a 4 mm hyperdense focus in the interpolar region of the right kidney possibly a stone. Prostatism was noted for gland measuring 6.2 cm. 01/28/2024. Seen by Dr. Harp for shortness of breath. He felt the patient had possible chronic interstitial lung disease versus periodic aspiration, hypoxia dyspnea on exertion. Further tests wereordered including high-resolution CT scan, complete pulmonary function testing, simple pulmonary stress test and follow-up. 02/09/2024. Follow-up with Elaine Betts. Erythropoietin injections continued every 2 weeks which the patient was tolerating well. 02/16/2024. Bone marrow biopsy was performed showing a hypercellular bone marrow at 50% with dyserythropoiesis. There are 1% blasts consistent with persistent myeloid neoplasm. Flow cytometry showed asmall clonal CD5 negative, CD10 negative B-cell population and a polytypic background. 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 There was a very small abnormal T-cell population that could be incidental. Next generation sequencing showed 2 U2AF 1 variants, 1 of which was negative. The other had been previously seen. The marrow also showed dyserythropoiesis with bilobate forms and forms with irregular nuclear contours as well as blebbing. 02/23/2024. CBC showed white count 1.5 with a hemoglobin of 8.3 hematocrit 25.9 and platelet count of 71,000 with 37% neutrophils, 53 lymphocytes, 4 monos, 4 eosinophils with an absolute neutrophil count of 0.57. 02/24/2024. Return visit with Dr. Harp. He noted that the high-resolution CT scan showed no significant change from the previous CT scan the month before. Pulmonary function testing showed no response to bronchodilator and there was mild restrictive change with some suggestion of airway inflammation. The patient had difficulty doing the test because of persistent coughing. 6-minute walk test showed that the patient was able to maintain saturations at 93% with 2 L of oxygen per minute continuously. The test was terminated because of dyspnea. With his hypoxia on room air it was recommended that he be on oxygen continuously to keep his saturation greater than or equal to 92%. He continued on oxygen with his CPAP at 3 L at nighttime. 03/11/2024. This is my first visit with Mr. Chaves and his family. We went over some of the results of the bone marrow biopsy. I told him that I would have to wait until the chromosomal analysis returned. I also note the possibility of low-grade lymphoma. He may need to have an opinion with malignanthematology at [facility]. Stepdaughter who is here with him and his today is his advocate for maintaining his quality of life. She is an employee at a local nursing facility and is concerned about many clients she has who seem to be getting treated aggressively. 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 He will continue on this treatment for now. Heis low counts were discussed and he knows that he is at higher risk for infection and bleeding. He continues on oxygen supplementation continuously. They will return in 2 weeks at which time laboratory tests will be performed. He just had a lesion removed from the dorsum of his right hand at the base of his first and second fingers. Stitches are still in place. It seems to be healing well without any significant bleeding or infection. He was told that it looked benign. 03/14/2024. Follow-up with Dr. Vianney Judge of cardiology who saw him in follow-up of his coronary artery disease with multiple stents having been placed, hypertension, dyslipidemia and previous pulmonary embolus related to COVID-19. She had stopped his Eliquis. 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 She notedthat at some point his aspirin had been stopped but given his history of stents this was restarted and he tolerated it well. She said that his blood pressure was well- controlled. She noted blood sugars were between 150-2 50. She noted the patient was supposed to be using oxygen with exertion but the patient was not sure what rate it was supposed to be. She says that she would not stop his aspirinunless his platelets were less than 50,000 with complications of bleeding. She said it was very important to continue aspirin given a 15% chance of in-stent thrombosis with aspirin cessation. She increased her furosemide to 80 mg twice a day because of bilateral lower extremity edema and spironolactone to 25 mg twice daily until symptoms improve and encouraged him to cut back on his salt intake. She was see him again in about 9 months. 03/15/2024. Follow-up with Dr. Adams of ophthalmology who started him on Naphcon- A drops 1 drop 3 times a day in both eyes for excessive tearing 03/16/2024. Followed up with Dr. Robert Mortensen of podiatry who noted decreased pedal pulses 2 out of 4. He had footcare. 03/25/2024. Follow-up with Dr. Harp. Review of his x-rays showed no change. Physical examinationshowed decreased breath sounds but no inspiratory crackles that were previously heard. He felt thatthe interstitial lung disease was stable and that his hypoxemia was improved on oxygen. He plan to repeat CT scan in July. 03/25/2024. He is here to follow-up on his bone marrow results. I told him that the chromosomal analysis would not be forthcoming before because the specimen failed to grow in culture. 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 We reviewed the fact that he is recommended tohave at least 6 months of his erythropoietin before we decide whether or not it is a failure. He isagreeable to this. We will increase his dose of darbepoetin. He knows to be on the look out for anysigns of infection or bleeding and to report this if it happens. We reviewed his most recent CBC. We will see him again in 2 weeks with his next injection. 03/31/2024. Follow-up with Dr. Dr. العراقي for his Medicare wellness visit. His magnesium dose waschanged to twice daily indefinitely. 04/08/2024. He is here today for his darbepoetin injection. We have increased his dose to 500 mcg every 2 weeks. Will see if this has any effect. Laboratory dated today shows that his sugar is 290 and his sodium is 134. BUN is 46 and creatinine is 2.31. CBC shows white count 1.5 with a hemoglobin 8.1hematocrit 24.7 and a platelet count of 71,000 which is very much like his most recent CBC. His absolute neutrophil count is 0.57. I talked to him about his current status which he feels is fairly stable. He is off oxygen. He has had no bleeding and no signs of infection. He understands that we have increased his dose of darbepoetin and we will watch his counts. He will report any side effects. He has continued to receive his darbepoetin injections. 05/16/2024. Emergency department visit [facility]. He developed a rash on both lower extremities which started a week ago which is an erythematous papular rash. He denied any pain or itching.He did not have any vesicle formation. It is bilateral. He has had a shingles injection. He was told that he had disseminated zoster and was started on valacyclovir a gram twice daily for 7 days. 05/20/2024. Seen by Dr. Dr. العراقي who said that the rash has not gotten any worse and might be alittle bit better. She noted that there were no vesicles no open areas no areas of secondary infection. 05/20/2024. He is here to receive his erythropoietin injection and to have a blood count. I told himit is not likely that this is disseminated zoster because it is nowhere else on his body but only on his lower extremities. This could be stasis dermatitis. I do not see any signs of vesicle formation and there never were any. It is mostly on the anterior shins. It is all below the knee. CBC today shows white count 1.4 with hemoglobin 8 hematocrit 25.4 platelet count 67,000 with 37 neutrophils 53 lymphocytes 5 monos 2 eosinophils. He is serum chemistry showed a sugar of 285 BUN of 49creatinine of 2.67. We told him he needed to keep his hydration status high. He will continue with his injections today. Blood pressure today is 153/64. He has had no bleeding and no infection. He has had no chest pain or pressure. He is able to participate in his usual activities including mowing the yard. Interval Note He has continued to receive his darbepoetin and has followed up with podiatry for nail and callus care. 07/01/2024. He is here in routine follow-up. He says that he is doing well. He has had no infectionsor bleeding. He has had no mouth sores. He has had continued swelling in his legs a little bit worse on the left than on the right. Blood sugar was greater than 300 but he admits to dietary indiscretion. Has had no chest pain. His blood pressure was 149/63. He says that his breathing is stable. He is using his oxygen at home at night and when he travels that he does not have it on today. His lab data has shown no sign of improvement so far with white count 1.3, hemoglobin 8.6 hematocrit 27.2 and a platelet count of 69,000. White blood cell differential count shows 38% polys, 50 lymphs, 5 monos, 2 eosinophils. We plan a 6-month trial of this dose of darbepoetin which will extend until September. We will see him again in about a month. Comorbidities GERD Arthritis, DJD BPH Coronary artery disease with history of myocardial, status post stent infarction History of dumping syndrome Hyperlipidemia History of skin cancer Obesity Obstructive sleep apnea on CPAP Peripheral arterial disease CKD 3 Diabetes with nephropathy History of cholecystectomy and hernia repair Essential tremor Hypertension Numbness in his fingers felt to be related to cervical disc disease. Monitoring Parameters Histories, physical examinations and CBCs with occasional bone marrow biopsies. Review of Systems - Oncology Review of Systems Constitutional: Positive for fatigue. Negative for appetite change and unexpected weight change. HENT: Negative for dental problem, mouth sores, rhinorrhea and trouble swallowing. Eyes: Negative for visual disturbance. Respiratory: Positive for shortness of breath. Negative for cough. Cardiovascular: Positive for leg swelling. Gastrointestinal: Negative for abdominal pain, constipation, diarrhea, nausea and vomiting. Endocrine: Negative for polyuria. Genitourinary: Negative for dysuria. Musculoskeletal: Positive for arthralgias (generalized). Negative for myalgias. Skin: Positive for pallor. Neurological: Negative for weakness, light-headedness, numbness and headaches. Hematological: Bruises/bleeds easily. Psychiatric/Behavioral: Negative for self-injury, sleep disturbance and suicidal ideas. The patientis not nervous/anxious. Past Medical History Past Medical History: Diagnosis Date Abnormal levels of other serum enzymes Abnormal liver enzymes Dependence on other enabling machines and devices CPAP (continuous positive airway pressure) dependence Encounter for examination of eyes and vision without abnormal findings Diabetic eye exam Localized edema Bilateral leg edema Old myocardial infarction History of myocardial infarction Other conditions influencing health status 11/09/2019 Uncontrolled diabetes mellitus type 2 without complications Pain in unspecified ankle and joints of unspecified foot Arthralgia of ankle Personal history of other diseases of the digestive system History of gastroesophageal reflux (GERD) Personal history of other diseases of the digestive system History of dumping syndrome Personal history of other endocrine, nutritional and metabolic disease 09/13/2020 History of type 2 diabetes mellitus Presence of coronary angioplasty implant and graft History of coronary artery stent placement Rash and other nonspecific skin eruption 10/12/2019 Rash Unspecified abdominal hernia without obstruction or gangrene Hernia Unspecified abdominal pain 03/20/2021 Abdominal pain, left lateral Surgical History Past Surgical History: Procedure Laterality Date OTHER SURGICAL HISTORY 08/10/2019 Arterial stent placement OTHER SURGICAL HISTORY 08/10/2019 Cholecystectomy OTHER SURGICAL HISTORY 08/10/2019 Hernia repair Social History Social History Tobacco Use Smoking status: Never Smokeless tobacco: Never Vaping Use Vaping status: Never Used Substance Use Topics Alcohol use: Never Drug use: Never Family History family history includes Colon cancer in his mother and another family member. Current Medications Current Outpatient Medications Medication Instructions allopurinol (ZYLOPRIM) 100 mg, oral, Daily amLODIPine (NORVASC) 5 mg, oral, Daily before breakfast ascorbic acid (VITAMIN C) 250 mg, oral aspirin 81 mg, oral, Daily atorvastatin (LIPITOR) 40 mg, oral, Daily blood-glucose sensor (Falafel Games[employer] [place] 3 Sensor) device Use as directed Constulose 10 gram/15 mL oral solution TAKE 45mL (30g) BY MOUTH TWICE DAILY FOR 30 DAYS cyanocobalamin, vitamin B-12, (Vitamin B-12) 1,000 mcg tablet extended release 1 tablet, oral furosemide (LASIX) 60 mg, oral, Daily gabapentin (NEURONTIN) 300 mg, oral, 2 times daily lancets 33 gauge misc miscellaneous, 2 times daily Lantus U-100 Insulin 50 Units, subcutaneous, Nightly metoprolol tartrate (LOPRESSOR) 50 mg, oral, 2 times daily multivit-minerals/folic acid (CENTRUM ADULTS ORAL) oral nitroglycerin (NITROSTAT) 0.4 mg, sublingual, Every 5 min PRN NON FORMULARY Truetrack test In vitro strip; Use as directed to check blood sugar 2 times daily pantoprazole (PROTONIX) 40 mg, oral, 2 times daily pen needle, diabetic (Pen Needle) 32 gauge x 5/32 needle 1 each, miscellaneous, Daily primidone (MYSOLINE) 50 mg, oral, Nightly spironolactone (ALDACTONE) 25 mg, oral, Daily sucralfate (CARAFATE) 1 g, oral, 3 times daily (morning, midday, late afternoon) valACYclovir (VALTREX) 1,000 mg, oral, 2 times daily, Take for 7 days, starting 05/16/24 vitamins A,C,X-brdn-epdnya 2,148 mcg-113 mg-45 mg-17.4mg tablet oral, [facility] [facility] O[facility] Review I have personally reviewed the OARRS report for Jewel Chaves. I have considered the risks of abuse, dependence, addiction and diversion Vital Signs BP 149/63 (BP Location: Right arm, Patient Position: Sitting, BP Cuff Size: Adult) Pulse 72 Temp 36.1 C (97 F) (Skin) Resp 16 Wt 105 kg (230 lb 12.8 oz) SpO2 93% BMI 36.15 kg/m Physical Exam Vitals and nursing note reviewed. Exam conducted with a hold worker present. Constitutional: General: He is not in acute distress. Appearance: He is ill-appearing. He is not toxic-appearing. Comments: He is a well-developed well-nourished overweight elderly white male who is unaccompanied again today. He does not have his oxygen on. He appears to be minimally chronically ill and pale. Heis in good spirits. HENT: Head: Normocephalic and atraumatic. Nose: Nose normal. Mouth/Throat: Mouth: Mucous membranes are moist. Pharynx: Oropharynx is clear. No oropharyngeal exudate or posterior oropharyngeal erythema. Eyes: General: No scleral icterus. Extraocular Movements: Extraocular movements intact. Conjunctiva/sclera: Conjunctivae normal. Pupils: Pupils are equal, round, and reactive to light. Neck: Comments: No significant lymphadenopathy is palpated in the head neck region, supraclavicular or axillary areas bilaterally. Cardiovascular: Rate and Rhythm: Normal rate and regular rhythm. Heart sounds: Murmur (flow murmur) heard. Pulmonary: Effort: Pulmonary effort is normal. Breath sounds: Wheezing present. No rhonchi or rales. Abdominal: Palpations: Abdomen is soft. There is no mass. Tenderness: There is no abdominal tenderness. There is no guarding. Comments: Large nontender abdomen. Musculoskeletal: General: Normal range of motion. Cervical back: Normal range of motion. No rigidity or tenderness. Right lower leg: Edema (up 1/2 way to the knee) present. Left lower leg: Edema present. Lymphadenopathy: Cervical: No cervical adenopathy. Skin: General: Skin is warm and dry. Coloration: Skin is pale. Skin is not jaundiced. Findings: Bruising present. Comments: Scattered bruises mostly on his arms Neurological: General: No focal deficit present. Mental Status: He is alert and oriented to person, place, and time. Mental status is at baseline. Cranial Nerves: Cranial nerve deficit present. Motor: No weakness. Gait: Gait normal. Comments: Hard of hearing Psychiatric: Mood and Affect: Mood normal. Behavior: Behavior normal. Thought Content: Thought content normal. Judgment: Judgment normal. Comments: He is in good spirits Current Laboratory Data No results found for this or any previous visit (from the past 168 hour(s)). Recent Imaging No results found. 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 Pancytopenia. The patient has unusual bone marrow findings. Chromosomal analysis will not be done due to failure of the specimen to grow. 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 He also has components of myelodysplasia. He is not responding to erythropoietin. We willincrease his dose to 500 mcg every other week. He continues to be at high risk for bleeding and infection with a low ANC and low platelet count. He has had previous GI bleeds. He is currently back onhis aspirin per follow-up with Dr. Judge for fear of clotting off his stents. He is off Eliquis. He will get his treatment today with darbepoetin and continue every 14 days. We plan for 6-month trial which will take us to September. . 2. Multiple comorbidities. 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 3. Rash on his legs. I think this looks more like stasis dermatitis than disseminated zoster. If itwere disseminated zoster he would have it on other areas of his body. We will see him again in about a month. He will continue his shots every 2 weeks. He knows that he should call in the interim should he have any change in his status, questions or concerns. Yisel Prado MD * Maris Kim RN - 07/01/2024 1:00 PM EDT Labs drawn on clinic arrival- injection today Pt already set for next lab and injection 07/15 Rtc 07/29 1230 stat lab work on arrival 1pm MD visit 130 pm Darbepoetin Reviewed AVS with patient- patient verbalizes understanding [facility] Work Phone: 1(913) 864-930408-30-2024 Instructions* Patient Instructions* Yisel Prado MD - 07/01/2024 1:00 PM EDT Reviewed labs and recent medical history. Discussed the swelling in his legs. He will continue to use his support stockings. Discussed his breathing. He continue to use O2 at home and when he travels. He will return in 2 weeks for his next injection. Return to see MD in 4 weeks with his injection. [facility] Work Phone: [phone]) 787-987808-16-2024 NoteNail care Patient is a pleasant 88-year-old gentleman who comes in today for at risk nail care. His diabetes is managed by primary including Jae Gannon, A1c unknown. Thinks it is 7% though but he is just not sure. Physical Vascular: DP pulses are palpable 2 out of 4 bilaterally. PT pulses are nonpalpable bilaterally. CFT is delayed with mild foot and ankle edema pitting in nature +1. Hair growth is absent bilaterally. Skin is shiny atrophic dysvascular. Nails 84045 left foot and [id number] right foot are markedly elongated thickened mycotic crumbling and dystrophic. Neuro: Sharp dull is blunted Babinski's is blunted. Musculoskeletal: Muscle strength is 5/5 with fair tone. Can easily wiggle toes without any clicking or catching. Derm: Mild hyperkeratosis plantar medial heel right and left no flaking or loss no deep nodules. Assessment and plan: Patient is a pleasant diabetic male with age and diabetic induced peripheral arterial disease and onychomycosis to 10 nails. -He does qualify for nail care given his elevated risk with arterial disease. -Procedure: Sharply debrided and debulk in height and length 10 onychomycotic nails with a sharp pair of nail nippers consistent with a q8 modifier -Procedure: Sharply debrided in height and w\idth 2 callus lesions with a 15 blade. Follow-up in 3 months for foot nail care. AUTHENTICATED BY ROBERT MORTENSEN JR., ON 06/17/2024 11:24:21[place] [id number] History of Present illness Narrative* Robert Mortensen Jr., DPM - 06/17/2024 11:24 AM EDT Nail care Patient is a pleasant 88-year-old gentleman who comes in today for at risk nail care. His diabetes is managed by primary including Jae Gannno, A1c unknown. Thinks it is 7% though but he is justnot sure. Physical Vascular: DP pulses are palpable 2 out of 4 bilaterally. PT pulses are nonpalpable bilaterally. CFTis delayed with mild foot and ankle edema pitting in nature +1. Hair growth is absent bilaterally. Skin is shiny atrophic dysvascular. Nails 01347 left foot [place] [id number] right foot are markedly elongated thickened mycotic crumbling and dystrophic. Neuro: Sharp dull is blunted Babinski's is blunted. Musculoskeletal: Muscle strength is 5/5 with fair tone. Can easily wiggle toes without any clickingor catching. Derm: Mild hyperkeratosis plantar medial heel right and left no flaking or loss no deep nodules. Assessment and plan: Patient is a pleasant diabetic male with age and diabetic induced peripheral arterial disease and onychomycosis to 10 nails. -He does qualify for nail care given his elevated risk with arterial disease. -Procedure: Sharply debrided and debulk in height and length 10 onychomycotic nails with a sharp pair of nail nippers consistent with a q8 modifier -Procedure: Sharply debrided in height and w\idth 2 callus lesions with a 15 blade. Follow-up in 3 months for foot nail care. documented in this [id number] History of Present illness Narrative* Maris Kim RN - 05/20/2024 1:00 PM EDT Labs drawn on arrival and sent to lab- had injection today after his visit 06/03 1pm stat lab and injection 06/17 1pm stat lab and injection 07/01 1230 stat lab at clinic 1pm MD santamaria and 130 injection to follow at visit No changes made Reviewed AVS with patient- patient verbalizes understanding * Yisel Prado MD - 05/20/2024 1:00 PM EDT Patient ID:Jewel Chaves is a 88 y.o. year old male patient with myelodysplasia Referring Physician: Yisel Prado MD [address] [place] [address] Dr Rodgers [address] [place] [address] Primary Care Provider: Palmira العراقي MD Chief Complaint Chief Complaint Patient presents with Anemia History of the Present Illness 08/10/2019. Visit with Dr. Jose J Martin for chronic kidney disease and hypertension. Chief complaint was fatigue and need to lose weight 09/13/2019. The patient has had long-term history of microcytic anemia going back to at least 2018 at which time his white count was 5.2 hemoglobin was 13.8 hematocrit 40.5 and a platelet count of 157,000. His MCV was 105 MCHC was 34. White blood cell differential count showed 66% polys, 17 lymphs,11 monos and 4 eosinophils. 10/12/2019. Seen by primary care for probable shingles treated with Valtrex with chief complaint ofwaxing and waning left flank pain radiating up under his ribs, somewhat responsive to exercise.. Hehad a history of pulmonary embolus and was on Eliquis long-term. 12/26/2019. Seen by Dr. Rick for elevated PSA, BPH and erectile dysfunction. PSA in 2017 was 2.94, in 2018 it was 2.74 and in 2019 it was 4.03. We discussed biopsy and the patient wanted to have this followed and not biopsy. 01/09/2020. Follow-up with Jae Gannon APRN primary care. Referred to Dr. Chopra for colonoscopy and CT scan of the chest was ordered for follow-up of questionable lingular nodule. 01/11/2020. CT scan of the chest showed a stable 6 mm nodular lesion near the fissure in the lingula. 01/13/2020. Seen by Dr. Chopra who noted that the patient had had diarrhea off-and-on since cholecystectomy and had intermittent left-sided pain. He had a history of colon polyps. 02/21/2015. 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 Seen by Dr. Nancy Rios in follow-up. She noted that he had an abnormal CBC with macrocytic indices with a normal B12 level. The patient denies alcohol use. Hemoglobin A1c was 6.2. BUN was 33 creatinine was 1.74. 07/02/2020. Follow-up with Dr. Rick. PSA had come down from 4.03-3.77 11/05/2020 through 11/13/2020. Admitted to the hospital having been brought to the ED by squad after he fell forward on his toilet and was unable to get up. He denied hitting his head or losing consciousness. He blamed it on having back pain and shoulder pain for several weeks. He was febrile with a temperature of 100.9 and hypoxic with pulse ox of 86% on room air. Respirations were 24. He was positive for COVID and was treated with intravenous antibiotics and remdesivir, increased supplemental oxygen. He was able to be discharged to rehabilitation. Repeat CBC showed white count 4.3 with a hemoglobin 12.9 hematocrit 38.8 with an MCV of 102 and a platelet count of 173,000. White blood cell differential count showed minimal absolute lymphocytopenia at 0.6 with the lower limits of normal being 0.8. 12/31/2020. Follow-up with Dr. Rick. PSA was 9.9 in December. Decided to have prostate biopsy done on01/21/2021. Results showed BPH. 08/07/2021. Follow-up with Dr. Rick. PSA in July was 2.77 02/05/2022. CBC showed white count 4.3 with hemoglobin 11.7 hematocrit 34.4 with an MCV of 107. Platelet count was 153,000. White blood cell differential count was essentially normal. 04/01/2022. CBC showed white count 3.6 with hemoglobin 11.6 hematocrit 34.4 and platelet count 117,000 with a normal white blood cell differential. 04/28/2022. Referred to Dr. Parra because of pancytopenia by Emma Hawkins APRN. CBC showed a white count of 3.9 with hemoglobin 12.3 hematocrit 36.1 and platelet count 129,000 with a normal differential. PSA was 3.26. The patient said that he felt well except for having increased fatigue. He continued on long-term anticoagulation. He was able to carry out his ADLs. He did complain of easy bruising. 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 Dr. Parra felt that there was a large component secondary to his chronic kidney disease. There was no evidence of nutritional deficiency. He checked him for hemolysis and monoclonal gammopathy and ordered an ultrasound for hepatosplenomegaly and testing for hepatitis, HIV and MAURIZIO. He said he would rather observe the patient rather than pursuing a bone marrow biopsy. 05/28/2022. Repeat lab data showed white count 3.9 with hemoglobin 12.3 hematocrit 36.1 and plateletcount 129,000. BUN was 36 creatinine was 1.78. He had mild elevation of AST. Retake count was 2.3%.Flow cytometry showed a small clonal B-cell population. Hepatitis B was nonreactive. Hep C testing was negative. Serum protein electrophoresis was normal. Haptoglobin was normal. LDH was normal. He said that the possibility of MDS could not be ruled out. Ultrasound showed fatty liver but no splenomegaly. He plan for EPO level and NGS for myeloid mutation. 07/03/2022. 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 2022. Seen by Dr. Dr. العراقي. Patient was referred to dermatology for several skin lesions. He was referred to neurology because of his tremor that was not improving. She increased his glimepiride. 08/18/2022. CBC showed white count 3.0 with hemoglobin 10.5 hematocrit 31.3 and a platelet count of106,000 MCV was 111. 08/27/2022. Follow-up with Dr. 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 He was suspicious for MDS. He referred him for a bone marrow biopsy. 10/02/2022. Follow-up with Dr. Parra. Bone marrow biopsy showed low-grade MDS. R IPSS score was low or very low depending on a karyotype which was still pending. We discussed initiating erythropoietinwith Aranesp but the patient deferred and the decision was made to monitor him. 11/12/2022. CBC showed white count 3.4 with hemoglobin 10.3 hematocrit 32.2 and a platelet count of 137,000. MCV was 115. White blood cell differential count was normal. 11/14/2022. Follow-up with Dr. Parra. The patient did say that he had following getting out of the shower but did not sustain any injuries. He had been started by Dr. Martin on insulin for his diabeteswhich was helpful. Patient continued to be active inside his house. He remains on Eliquis. BR-IPSS score is very low. Counts remain stable. 01/30/2023. CBC showed a white count of 2.6 with hemoglobin 8.7 hematocrit 27.1 and a platelet count97,000. MCV was 115. White blood cell differential count showed that he had an absolute neutrophil count of 1.36. 02/09/2023. CBC showed a white count of 2.5 with a hemoglobin 9.0 hematocrit of 27.7 with a plateletcount of 92,000. MCV was 114. 02/16/2023. Follow-up with Elaine Betts APRN. Even though his hemoglobin had dropped to 9 the patient did not want to start his erythropoietin injections. 03/12/2023. CBC showed white count of 2.5 with a hemoglobin of 7.6 hematocrit 23.8 and a platelet count of 101,000. Absolute neutrophil count was 1.17. 03/16/2023 through 03/20/2023. Admitted to the hospital with anemia and generalized weakness black stools dizziness with a hemoglobin of 6.7. His BUN was [address] scan of the abdomen showed no acute process. There were findings consistent with atypical healing of the previous rib fra cture with question Paget's disease although it was nonspecific. He was transfused 2 units packed red blood cells. EGD found 3 erosions in the cardia. He was prescribed Carafate. 03/25/2023. Follow-up with Dr. Dr. العراقي after discharge. CBC showed white count 1.9 with hemoglobin 8.6 hematocrit 28.3 and a platelet count of 140,000. Absolute neutrophil count was 1.06. Patient did not tolerate Carafate and stopped it. He was prescribed oral iron twice a day. He had not beenprescribed a PPI which was then started. 04/02/2023. CBC showed white count of 1.9 with hemoglobin 7.7 hematocrit 24.8 and a platelet count of87,000. 04/14/2023. CBC showed a white count of 1.9 with hemoglobin of 8.7 hematocrit 28.1 and platelet count of 89,000. 04/24/2023. Followed up with Dr. Dr. العراقي who reported that he was hospitalized again in [place] for GI bleed. At that time his Eliquis was discontinued and he was changed to Protonix and taken off his baby aspirin. Once again he was started on Carafate but did not tolerate it. 05/16/2023. CBC showed white count of 2.4 with hemoglobin 9.2 hematocrit 27.3 and a platelet count of 110,000. Absolute neutrophil count was 1.36. 05/18/2023. Follow-up with Elaine Betts. The patient had recently had a colonoscopy and had cauterizations he noted that he had dyspnea with exertion but no resting shortness of breath. He was on prednisone at that time. His sugars were in the 300s. He was on insulin. His neuropathy has not changedand he continues to have tremors. Current level was found to be saturated. Once again the patient was reluctant to start CHRISTIE. 06/15/2023. Follow-up with Elaine Betts. CBC showed white count 1.8 with a hemoglobin 8.9 hematocrit 26.9 and a platelet count of 100,000. Absolute neutrophil count was 0.96. 07/08/2023. CBC showed a white count of 1.8 with hemoglobin 9.5 hematocrit 28.8 and a platelet count of 85,000 with an absolute neutrophil count of 0.99. 07/15/2023. Follow-up with Dr. Rick. PSA has gone down to 1.87. 08/10/2023. Follow-up with Elaine Betts who noted the patient remained on oxygen and CPAP. He says that he is awakening in the middle of the night around 3 to 4:00 in the morning. Sugars have been in the 300s. Neuropathy was unchanged. He had been started on erythropoietin every 3 weeks 09/22/2023. Follow-up with Elaine Betts. No improvement in his hemoglobin. White count had improved to 2.1 platelets were baseline. He had been placed on 40 mg of prednisone and continued on erythropoietin 300 mcg every 3 weeks. 11/03/2023. Follow-up with Elaine Betts. No improvement in hemoglobin. Symptomatically he was doing well. Plan was to increase frequency of his darbepoetin to every 2 weeks. 12/15/2023. Follow-up with Elaine Betts. Now on erythropoietin injections every 2 weeks. There was a discussion concerning repeat bone marrow biopsy with counts stayed low. 01/12/2024. Follow-up with Elaine Betts. No improvement in his hemoglobin. Patient was agreeable to repeat bone marrow biopsy. She also ordered a CAT scan of the chest abdomen and pelvis without contrast. 01/22/2024. CAT scan showed severe coronary artery calcifications. There is evidence of bronchiectasis in the lower lobes increased compared to previous CT scan from 2020. Predominantly groundglass opacities with bibasilar prominence. There is some subpleural sparing of the left upper lobe. There is a 3 mm nodule in the right upper lobe which was unchanged for several years. 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 There is a small fat-containing periumbilical hernia and bilateral inguinal hernias. Spleen size is at the upper limitsof normal being 12.7 cm in length slightly increased when compared to study from 2019. Cysts were seen in the kidneys with diffuse cortical atrophy and a 4 mm hyperdense focus in the interpolar region of the right kidney possibly a stone. Prostatism was noted for gland measuring 6.2 cm. 01/28/2024. Seen by Dr. Harp for shortness of breath. He felt the patient had possible chronic interstitial lung disease versus periodic aspiration, hypoxia dyspnea on exertion. Further tests wereordered including high-resolution CT scan, complete pulmonary function testing, simple pulmonary stress test and follow-up. 02/09/2024. Follow-up with Elaine Betts. Erythropoietin injections continued every 2 weeks which the patient was tolerating well. 02/16/2024. Bone marrow biopsy was performed showing a hypercellular bone marrow at 50% with dyserythropoiesis. There are 1% blasts consistent with persistent myeloid neoplasm. Flow cytometry showed asmall clonal CD5 negative, CD10 negative B-cell population and a polytypic background. 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 There was a very small abnormal T-cell population that could be incidental. Next generation sequencing showed 2 U2AF 1 variants, 1 of which was negative. The other had been previously seen. The marrow also showed dyserythropoiesis with bilobate forms and forms with irregular nuclear contours as well as blebbing. 02/23/2024. CBC showed white count 1.5 with a hemoglobin of 8.3 hematocrit 25.9 and platelet count of 71,000 with 37% neutrophils, 53 lymphocytes, 4 monos, 4 eosinophils with an absolute neutrophil count of 0.57. 02/24/2024. Return visit with Dr. Harp. He noted that the high-resolution CT scan showed no significant change from the previous CT scan the month before. Pulmonary function testing showed no response to bronchodilator and there was mild restrictive change with some suggestion of airway inflammation. The patient had difficulty doing the test because of persistent coughing. 6-minute walk test showed that the patient was able to maintain saturations at 93% with 2 L of oxygen per minute continuously. The test was terminated because of dyspnea. With his hypoxia on room air it was recommended that he be on oxygen continuously to keep his saturation greater than or equal to 92%. He continued on oxygen with his CPAP at 3 L at nighttime. 03/11/2024. This is my first visit with Mr. Chaves and his family. We went over some of the results of the bone marrow biopsy. I told him that I would have to wait until the chromosomal analysis returned. I also note the possibility of low-grade lymphoma. He may need to have an opinion with [facility]hematology at [facility]. Stepdaughter who is here with him and his today is his advocate for maintaining his quality of life. She is an employee at a local nursing facility and is concerned about many clients she has who seem to be getting treated aggressively. 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 He will continue on this treatment for now. Heis low counts were discussed and he knows that he is at higher risk for infection and bleeding. He continues on oxygen supplementation continuously. They will return in 2 weeks at which time laboratory tests will be performed. He just had a lesion removed from the dorsum of his right hand at the base of his first and second fingers. Stitches are still in place. It seems to be healing well without any significant bleeding or infection. He was told that it looked benign. 03/14/2024. Follow-up with Dr. Vianney Judge of cardiology who saw him in follow-up of his coronary artery disease with multiple stents having been placed, hypertension, dyslipidemia and previous pulmonary embolus related to COVID-19. She had stopped his Eliquis. 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 She notedthat at some point his aspirin had been stopped but given his history of stents this was restarted and he tolerated it well. She said that his blood pressure was well- controlled. She noted blood sugars were between 150-2 50. She noted the patient was supposed to be using oxygen with exertion but the patient was not sure what rate it was supposed to be. She says that she would not stop his aspirinunless his platelets were less than 50,000 with complications of bleeding. She said it was very important to continue aspirin given a 15% chance of in-stent thrombosis with aspirin cessation. She increased her furosemide to 80 mg twice a day because of bilateral lower extremity edema and spironolactone to 25 mg twice daily until symptoms improve and encouraged him to cut back on his salt intake. She was see him again in about 9 months. 03/15/2024. Follow-up with Dr. Adams of ophthalmology who started him on Naphcon- A drops 1 drop 3 times a day in both eyes for excessive tearing 03/16/2024. Followed up with Dr. Robert Mortensen of podiatry who noted decreased pedal pulses 2 out of 4. He had footcare. 03/25/2024. Follow-up with Dr. Harp. Review of his x-rays showed no change. Physical examinationshowed decreased breath sounds but no inspiratory crackles that were previously heard. He felt thatthe interstitial lung disease was stable and that his hypoxemia was improved on oxygen. He plan to repeat CT scan in July. 03/25/2024. He is here to follow-up on his bone marrow results. I told him that the chromosomal analysis would not be forthcoming before because the specimen failed to grow in culture. 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 We reviewed the fact that he is recommended tohave at least 6 months of his erythropoietin before we decide whether or not it is a failure. He isagreeable to this. We will increase his dose of darbepoetin. He knows to be on the look out for anysigns of infection or bleeding and to report this if it happens. We reviewed his most recent CBC. We will see him again in 2 weeks with his next injection. 03/31/2024. Follow-up with Dr. Dr. العراقي for his Medicare wellness visit. His magnesium dose waschanged to twice daily indefinitely. 04/08/2024. He is here today for his darbepoetin injection. We have increased his dose to 500 mcg every 2 weeks. Will see if this has any effect. Laboratory dated today shows that his sugar is 290 and his sodium is 134. BUN is 46 and creatinine is 2.31. CBC shows white count 1.5 with a hemoglobin 8.1hematocrit 24.7 and a platelet count of 71,000 which is very much like his most recent CBC. His absolute neutrophil count is 0.57. I talked to him about his current status which he feels is fairly stable. He is off oxygen. He has had no bleeding and no signs of infection. He understands that we have increased his dose of darbepoetin and we will watch his counts. He will report any side effects. Interval Note He has continued to receive his darbepoetin injections. 05/16/2024. Emergency department [facility]. He developed a rash on both lower extremities which started a week ago which is an erythematous papular rash. He denied any pain or itching.He did not have any vesicle formation. It is bilateral. He has had a shingles injection. He was told that he had disseminated zoster and was started on valacyclovir a gram twice daily for 7 days. 05/20/2024. Seen by Dr. Dr. العراقي who said that the rash has not gotten any worse and might be alittle bit better. She noted that there were no vesicles no open areas no areas of secondary infection. 05/20/2024. He is here to receive his erythropoietin injection and to have a blood count. I told himit is not likely that this is disseminated zoster because it is nowhere else on his body but only on his lower extremities. This could be stasis dermatitis. I do not see any signs of vesicle formation and there never were any. It is mostly on the anterior shins. It is all below the knee. CBC today shows white count 1.4 with hemoglobin 8 hematocrit 25.4 platelet count 67,000 with 37 neutrophils 53 lymphocytes 5 monos 2 eosinophils. He is serum chemistry showed a sugar of 285 BUN of 49creatinine of 2.67. We told him he needed to keep his hydration status high. He will continue with his injections today. Blood pressure today is 153/64. He has had no bleeding and no infection. He has had no chest pain or pressure. He is able to participate in his usual activities including mowing the yard. Comorbidities GERD Arthritis, DJD BPH Coronary artery disease with history of myocardial, status post stent infarction History of dumping syndrome Hyperlipidemia History of skin cancer Obesity Obstructive sleep apnea on CPAP Peripheral arterial disease CKD 3 Diabetes with nephropathy History of cholecystectomy and hernia repair Essential tremor Hypertension Numbness in his fingers felt to be related to cervical disc disease. Monitoring Parameters Histories, physical examinations and CBCs with occasional bone marrow biopsies. Review of Systems - Oncology Review of Systems Constitutional: Positive for fatigue. Negative for appetite change and unexpected weight change. HENT: Negative for dental problem, rhinorrhea and trouble swallowing. Eyes: Negative for visual disturbance. Respiratory: Positive for shortness of breath. Negative for cough. Cardiovascular: Positive for leg swelling. Gastrointestinal: Negative for abdominal pain, constipation, diarrhea, nausea and vomiting. Endocrine: Negative for polyuria. Genitourinary: Negative for dysuria, frequency and urgency. Musculoskeletal: Positive for arthralgias and myalgias. Skin: Positive for rash (lower part of both legs). Neurological: Negative for weakness, light-headedness, numbness and headaches. Hematological: Bruises/bleeds easily. Psychiatric/Behavioral: Negative for self-injury, sleep disturbance and suicidal ideas. The patientis not nervous/anxious. Past Medical History Past Medical History: Diagnosis Date Abnormal levels of other serum enzymes Abnormal liver enzymes Dependence on other enabling machines and devices CPAP (continuous positive airway pressure) dependence Encounter for examination of eyes and vision without abnormal findings Diabetic eye exam Localized edema Bilateral leg edema Old myocardial infarction History of myocardial infarction Other conditions influencing health status 11/09/2019 Uncontrolled diabetes mellitus type 2 without complications Pain in unspecified ankle and joints of unspecified foot Arthralgia of ankle Personal history of other diseases of the digestive system History of gastroesophageal reflux (GERD) Personal history of other diseases of the digestive system History of dumping syndrome Personal history of other endocrine, nutritional and metabolic disease 09/13/2020 History of type 2 diabetes mellitus Presence of coronary angioplasty implant and graft History of coronary artery stent placement Rash and other nonspecific skin eruption 10/12/2019 Rash Unspecified abdominal hernia without obstruction or gangrene Hernia Unspecified abdominal pain 03/20/2021 Abdominal pain, left lateral Surgical History Past Surgical History: Procedure Laterality Date OTHER SURGICAL HISTORY 08/10/2019 Arterial stent placement OTHER SURGICAL HISTORY 08/10/2019 Cholecystectomy OTHER SURGICAL HISTORY 08/10/2019 Hernia repair Social History Social History Tobacco Use Smoking status: Never Smokeless tobacco: Never Vaping Use Vaping status: Never Used Substance Use Topics Alcohol use: Never Drug use: Never Family History family history includes Colon cancer in his mother and another family member. Current Medications Current Outpatient Medications Medication Instructions allopurinol (ZYLOPRIM) 100 mg, oral, Daily amLODIPine (NORVASC) 5 mg, oral, Daily before breakfast ascorbic acid (VITAMIN C) 250 mg, oral aspirin 81 mg, oral, Daily atorvastatin (LIPITOR) 40 mg, oral, Daily blood-glucose sensor (FreeStyle [place] 3 Sensor) device Use as directed Constulose 10 gram/15 mL oral solution TAKE 45mL (30g) BY MOUTH TWICE DAILY FOR 30 DAYS cyanocobalamin, vitamin B-12, (Vitamin B-12) 1,000 mcg tablet extended release 1 tablet, oral furosemide (LASIX) 60 mg, oral, Daily gabapentin (NEURONTIN) 300 mg, oral, 2 times daily lancets 33 gauge misc miscellaneous, 2 times daily Lantus U-100 Insulin 50 Units, subcutaneous, Nightly metoprolol tartrate (LOPRESSOR) 50 mg, oral, 2 times daily multivit-minerals/folic acid (CENTRUM ADULTS ORAL) oral nitroglycerin (NITROSTAT) 0.4 mg, sublingual, Every 5 min PRN NON FORMULARY Truetrack test In vitro strip; Use as directed to check blood sugar 2 times daily pantoprazole (PROTONIX) 40 mg, oral, 2 times daily pen needle, diabetic (Pen Needle) 32 gauge x 5/32 needle 1 each, miscellaneous, Daily primidone (MYSOLINE) 50 mg, oral, Nightly spironolactone (ALDACTONE) 25 mg, oral, Daily sucralfate (CARAFATE) 1 g, oral, 3 times daily (morning, midday, late afternoon) valACYclovir (VALTREX) 1,000 mg, oral, 2 times daily, Take for 7 days, starting 05/16/24 vitamins A,C,H-ndzx-gwhzci 2,148 mcg-113 mg-45 mg-17.4mg tablet oral, SU[employer] [place] OARRS Review I have personally reviewed the OARRS report for Jewel Recio Anastacio. I have considered the risks of abuse, dependence, addiction and diversion. He continues on gabapentin. Vital Signs BP 153/64 (BP Location: Left arm, Patient Position: Sitting, BP Cuff Size: Adult) Pulse 73 Temp36 C (96.8 F) (Skin) Resp 16 Wt 106 kg (232 lb 9.6 oz) SpO2 92% BMI 36.43 kg/m Physical Exam Vitals and nursing note reviewed. Exam conducted with a hold worker present. Constitutional: General: He is not in acute distress. Appearance: He is ill-appearing. He is not toxic-appearing. Comments: He is a well-developed well-nourished overweight elderly white male who is unaccompanied again today. He does not have his oxygen on. He appears to be somewhat chronically ill and pale. He is in good spirits. HENT: Head: Normocephalic and atraumatic. Nose: Nose normal. Mouth/Throat: Mouth: Mucous membranes are moist. Pharynx: Oropharynx is clear. No oropharyngeal exudate or posterior oropharyngeal erythema. Eyes: General: No scleral icterus. Extraocular Movements: Extraocular movements intact. Conjunctiva/sclera: Conjunctivae normal. Pupils: Pupils are equal, round, and reactive to light. Neck: Comments: No significant lymphadenopathy is palpated in the head neck region, supraclavicular or axillary areas bilaterally. Cardiovascular: Rate and Rhythm: Normal rate and regular rhythm. Heart sounds: Murmur (flow murmur) heard. Pulmonary: Effort: Pulmonary effort is normal. No respiratory distress. Breath sounds: No wheezing, rhonchi or rales. Abdominal: General: There is no distension. Palpations: Abdomen is soft. There is no mass. Tenderness: There is no abdominal tenderness. There is no guarding or rebound. Musculoskeletal: General: Normal range of motion. Cervical back: Normal range of motion. No rigidity or tenderness. Right lower leg: Edema (2+ to his mid calf.) present. Left lower leg: Edema (2+ to mid calf A little worse on the left.) present. Lymphadenopathy: Cervical: No cervical adenopathy. Skin: General: Skin is warm and dry. Coloration: Skin is not jaundiced or pale. Comments: He has lesions mostly on the anterior aspects of both shins. They are not erythematous they are hypopigmented. There are no vesicles. He has no involvement by this rash anywhere else on hisbody. Neurological: General: No focal deficit present. Mental Status: He is alert and oriented to person, place, and time. Mental status is at baseline. Motor: No weakness. Gait: Gait normal. Comments: He is hard of hearing Psychiatric: Mood and Affect: Mood normal. Behavior: Behavior normal. Thought Content: Thought content normal. Judgment: Judgment normal. Comments: He seems to be in good spirits. Current Laboratory Data Recent Results (from the past 168 hour(s)) Comprehensive Metabolic Panel Collection Time: 05/20/24 12:59 PM Result Value Ref Range Glucose 285 (H) 74 - 99 mg/dL Sodium 138 136 - 145 mmol/L Potassium 4.6 3.5 - 5.3 mmol/L Chloride 106 98 - 107 mmol/L Bicarbonate 22 21 - 32 mmol/L Anion Gap 15 10 - 20 mmol/L Urea Nitrogen 49 (H) 6 - 23 mg/dL Creatinine 2.67 (H) 0.50 - 1.30 mg/dL eGFR 22 (L) >60 mL/min/1.73m*2 Calcium 9.0 8.6 - 10.3 mg/dL Albumin 4.1 3.4 - 5.0 g/dL Alkaline Phosphatase 100 33 - 136 U/L Total Protein 6.2 (L) 6.4 - 8.2 g/dL AST Bilirubin, Total 1.1 0.0 - 1.2 mg/dL ALT 18 10 - 52 U/L CBC and Auto Differential Collection Time: 05/20/24 12:59 PM Result Value Ref Range WBC 1.4 (L) 4.4 - 11.3 x10*3/uL nRBC 1.4 (H) 0.0 - 0.0 /100 WBCs RBC 2.32 (L) 4.50 - 5.90 x10*6/uL Hemoglobin 8.0 (L) 13.5 - 17.5 g/dL Hematocrit 25.4 (L) 41.0 - 52.0 % MCV 110 (H) 80 - 100 fL MCH 34.5 (H) 26.0 - 34.0 pg MCHC 31.5 (L) 32.0 - 36.0 g/dL RDW 20.9 (H) 11.5 - 14.5 % Platelets 67 (L) 150 - 450 x10*3/uL Neutrophils % 37.6 40.0 - 80.0 % Immature Granulocytes %, Automated 1.4 (H) 0.0 - 0.9 % Lymphocytes % 53.2 13.0 - 44.0 % Monocytes % 5.0 2.0 - 10.0 % Eosinophils % 2.8 0.0 - 6.0 % Basophils % 0.0 0.0 - 2.0 % Neutrophils Absolute 0.53 (L) 1.60 - 5.50 x10*3/uL Immature Granulocytes Absolute, Automated 0.02 0.00 - 0.50 x10*3/uL Lymphocytes Absolute 0.75 (L) 0.80 - 3.00 x10*3/uL Monocytes Absolute 0.07 0.05 - 0.80 x10*3/uL Eosinophils Absolute 0.04 0.00 - 0.40 x10*3/uL Basophils Absolute 0.00 0.00 - 0.10 x10*3/uL Recent Imaging No results found. Pathology Low-grade myelodysplasia Performance Status: Symptomatic; fully ambulatory Assessment/Plan 1. Pancytopenia. The patient has unusual bone marrow findings. Chromosomal analysis will not be done due to failure of the specimen to grow. 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 He also has components of myelodysplasia. He is not responding to erythropoietin. We willincrease his dose to 500 mcg every other week. He continues to be at high risk for bleeding and infection with a low ANC and low platelet count. He has had previous GI bleeds. He is currently back onhis aspirin per follow-up with Dr. Judge for fear of clotting off his stents. He is off Eliquis. He will get his treatment today with darbepoetin and continue every 14 days. . 2. Multiple comorbidities. 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 3. Rash on his legs. I think this looks more like stasis dermatitis than disseminated zoster. If itwere disseminated zoster he would have it on other areas of his body. He knows that he should call in the interim should he have any change in his status, questions or concerns. (This note was generated with voice recognition software and may contain errors including spelling,grammar, syntax and misrecognition of what was dictated, that are not fully corrected) Yisel Prado MD [facility] Work Phone: [phone]) 654-359007-19-2024 Instructions* Patient Instructions* Yisel Prado MD - 05/20/2024 1:00 PM EDT Reviewed labs and recent medical history. Discussed his rash on his legs. Not sure that it is shingles. It does not hurt nor does it itch. Will continue to monitor for changes. Encouraged him to use his support stockings and keep feet elevated. Okay for his Injection today, 05/20/24 Return to see MD in 6 weeks. Continue on his 2 week injection. documented [facility] Work Phone: [phone] 553-689207-19-2024 History of Present illness Narrative* Anya Peterson MA - 05/20/2024 9:00 AM EDT Subjective Patient ID: Jewel Chaves is a 88 y.o. male who presents for follow up to ED visit for shingles on05/16/2024. Patient was prescribed medication. Patient states it is not itchy at all. Needs refill on the Nitrostat. HPI Review of Systems Objective There were no vitals taken for this visit. Physical Exam Assessment/Plan * Palmira العراقي MD - 05/20/2024 9:00 AM EDT Subjective Jewel Chaves is a 88 y.o. male who presents for No chief complaint on file.. Here for follow up recent ER visit for rash - diagnosed with shingles on 05/16 and treated with valtrex. The rash has not gotten any worse, may be getting better. He denies any pain, itching, etc. Objective Visit Vitals BP 116/52 (BP Location: Left arm, Patient Position: Sitting, BP Cuff Size: Adult) Pulse 69 Physical Exam Vitals reviewed. Constitutional: General: He is not in acute distress. Cardiovascular: Rate and Rhythm: Normal rate. Pulmonary: Effort: Pulmonary effort is normal. No respiratory distress. Skin: General: Skin is warm and dry. Comments: Scattered patches of erythema over both lower extremities. No vesicles, no open areas/evidence of secondary infection. Neurological: General: No focal deficit present. Mental Status: He is alert. Mental status is at baseline. Assessment/Plan Problem List Items Addressed This Visit S/P coronary artery stent placement Relevant Medications nitroglycerin (Nitrostat) 0.4 mg SL tablet Class 2 severe obesity with serious comorbidity and body mass index (BMI) of 36.0 to 36.9 in adult (Multi) Other Visit Diagnoses Disseminated herpes zoster - Primary Palmira العراقي MD documented [facility] Work Phone: [phone]) 627-121806-07-2024 History of Present illness Narrative* Maris Kim RN - 04/08/2024 11:00 AM EDT Labs drawn on arrival Aranesp increased to 500mg today 04/22 lab and aranesp 05/06 lab and aranesp 05/20 lab on arrival to clinic 1pm MD and aranesp to follow Reviewed AVS with patient- patient verbalizes understanding * Yisel Prado MD - 04/08/2024 11:00 AM EDT Patient ID:Jewel Chaves is a 88 y.o. year old male patient with myelodysplasia Referring Physician: Yisel Prado MD [address] [place] [address] [address] [place] [address] Primary Care Provider: Palmira العراقي MD Chief Complaint Chief Complaint Patient presents with Myelodyplasia History of the Present Illness 08/10/2019. Visit with Dr. Jose J Martin for chronic kidney disease and hypertension. Chief complaint was fatigue and need to lose weight 09/13/2019. The patient has had long-term history of microcytic anemia going back to at least 2018 at which time his white count was 5.2 hemoglobin was 13.8 hematocrit 40.5 and a platelet count of 157,000. His MCV was 105 MCHC was 34. White blood cell differential count showed 66% polys, 17 lymphs,11 monos and 4 eosinophils. 10/12/2019. Seen by primary care for probable shingles treated with Valtrex with chief complaint ofwaxing and waning left flank pain radiating up under his ribs, somewhat responsive to exercise.. Hehad a history of pulmonary embolus and was on Eliquis long-term. 12/26/2019. Seen by Dr. Rick for elevated PSA, BPH and erectile dysfunction. PSA in 2017 was 2.94, in 2017 it was 2.74 and in 2019 it was 4.03. We discussed biopsy and the patient wanted to have this followed and not biopsy. 01/09/2020. Follow-up with Jae Gannon APRN primary care. Referred to Dr. Chopra for colonoscopy and CT scan of the chest was ordered for follow-up of questionable lingular nodule. 01/11/2020. CT scan of the chest showed a stable 6 mm nodular lesion near the fissure in the lingula. 01/13/2020. Seen by Dr. Chopra who noted that the patient had had diarrhea off-and-on since cholecystectomy and had intermittent left-sided pain. He had a history of colon polyps. 02/21/2015. 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 Seen by Dr. Nancy Rios in follow-up. She noted that he had an abnormal CBC with macrocytic indices with a normal B12 level. The patient denies alcohol use. Hemoglobin A1c was 6.2. BUN was 33 creatinine was 1.74. 07/02/2020. Follow-up with Dr. Rick. PSA had come down from 4.03-3.77 11/05/2020 through 11/13/2020. Admitted to the hospital having been brought to the ED by squad after he fell forward on his toilet and was unable to get up. He denied hitting his head or losing consciousness. He blamed it on having back pain and shoulder pain for several weeks. He was febrile with a temperature of 100.9 and hypoxic with pulse ox of 86% on room air. Respirations were 24. He was positive for COVID and was treated with intravenous antibiotics and remdesivir, increased supplemental oxygen. He was able to be discharged to rehabilitation. Repeat CBC showed white count 4.3 with a hemoglobin 12.9 hematocrit 38.8 with an MCV of 102 and a platelet count of 173,000. White blood cell differential count showed minimal absolute lymphocytopenia at 0.6 with the lower limits of normal being 0.8. 12/31/2020. Follow-up with Dr. Rick. PSA was 9.9 in December. Decided to have prostate biopsy done on01/21/2021. Results showed BPH. 08/07/2021. Follow-up with Dr. Rick. PSA in July was 2.77 02/05/2022. CBC showed white count 4.3 with hemoglobin 11.7 hematocrit 34.4 with an MCV of 107. Platelet count was 153,000. White blood cell differential count was essentially normal. 04/01/2022. CBC showed white count 3.6 with hemoglobin 11.6 hematocrit 34.4 and platelet count 117,000 with a normal white blood cell differential. 04/28/2022. Referred to Dr. Parra because of pancytopenia by Emma Hawkins APRN. CBC showed a white count of 3.9 with hemoglobin 12.3 hematocrit 36.1 and platelet count 129,000 with a normal differential. PSA was 3.26. The patient said that he felt well except for having increased fatigue. He continued on long-term anticoagulation. He was able to carry out his ADLs. He did complain of easy bruising. 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 Dr. Parra felt that there was a large component secondary to his chronic kidney disease. There was no evidence of nutritional deficiency. He checked him for hemolysis and monoclonal gammopathy and ordered an ultrasound for hepatosplenomegaly and testing for hepatitis, HIV and MAURIZIO. He said he would rather observe the patient rather than pursuing a bone marrow biopsy. 05/28/2022. Repeat lab data showed white count 3.9 with hemoglobin 12.3 hematocrit 36.1 and plateletcount 129,000. BUN was 36 creatinine was 1.78. He had mild elevation of AST. Retake count was 2.3%.Flow cytometry showed a small clonal B-cell population. Hepatitis B was nonreactive. Hep C testing was negative. Serum protein electrophoresis was normal. Haptoglobin was normal. LDH was normal. He said that the possibility of MDS could not be ruled out. Ultrasound showed fatty liver but no splenomegaly. He plan for EPO level and NGS for myeloid mutation. 07/03/2022. 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 2022. Seen by Dr. Dr. العراقي. Patient was referred to dermatology for several skin lesions. He was referred to neurology because of his tremor that was not improving. She increased his glimepiride. 08/18/2022. CBC showed white count 3.0 with hemoglobin 10.5 hematocrit 31.3 and a platelet count of106,000 MCV was 111. 08/27/2022. Follow-up with Dr. 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 He was suspicious for MDS. He referred him for a bone marrow biopsy. 10/02/2022. Follow-up with Dr. Parra. Bone marrow biopsy showed low-grade MDS. R IPSS score was low or very low depending on a karyotype which was still pending. We discussed initiating erythropoietinwith Aranesp but the patient deferred and the decision was made to monitor him. 11/12/2022. CBC showed white count 3.4 with hemoglobin 10.3 hematocrit 32.2 and a platelet count of 137,000. MCV was 115. White blood cell differential count was normal. 11/14/2022. Follow-up with Dr. Parra. The patient did say that he had following getting out of the shower but did not sustain any injuries. He had been started by Dr. Martin on insulin for his diabeteswhich was helpful. Patient continued to be active inside his house. He remains on Eliquis. BR-IPSS score is very low. Counts remain stable. 01/30/2023. CBC showed a white count of 2.6 with hemoglobin 8.7 hematocrit 27.1 and a platelet count97,000. MCV was 115. White blood cell differential count showed that he had an absolute neutrophil count of 1.36. 02/09/2023. CBC showed a white count of 2.5 with a hemoglobin 9.0 hematocrit of 27.7 with a plateletcount of 92,000. MCV was 114. 02/16/2023. Follow-up with Elaine Betts APRN. Even though his hemoglobin had dropped to 9 the patient did not want to start his erythropoietin injections. 03/12/2023. CBC showed white count of 2.5 with a hemoglobin of 7.6 hematocrit 23.8 and a platelet count of 101,000. Absolute neutrophil count was 1.17. 03/16/2023 through 03/20/2023. Admitted to the hospital with anemia and generalized weakness black stools dizziness with a hemoglobin of 6.7. His BUN was [address] scan of the abdomen showed no acute process. There were findings consistent with atypical healing of the previous rib fra cture with question Paget's disease although it was nonspecific. He was transfused 2 units packed red blood cells. EGD found 3 erosions in the cardia. He was prescribed Carafate. 03/25/2023. Follow-up with Dr. Dr. العراقي after discharge. CBC showed white count 1.9 with hemoglobin 8.6 hematocrit 28.3 and a platelet count of 140,000. Absolute neutrophil count was 1.06. Patient did not tolerate Carafate and stopped it. He was prescribed oral iron twice a day. He had not beenprescribed a PPI which was then started. 04/02/2023. CBC showed white count of 1.9 with hemoglobin 7.7 hematocrit 24.8 and a platelet count of87,000. 04/14/2023. CBC showed a white count of 1.9 with hemoglobin of 8.7 hematocrit 28.1 and platelet count of 89,000. 04/24/2023. Followed up with Dr. Dr. العراقي who reported that he was hospitalized again in [place] for GI bleed. At that time his Eliquis was discontinued and he was changed to Protonix and taken off his baby aspirin. Once again he was started on Carafate but did not tolerate it. 05/16/2023. CBC showed white count of 2.4 with hemoglobin 9.2 hematocrit 27.3 and a platelet count of 110,000. Absolute neutrophil count was 1.36. 05/18/2023. Follow-up with Elaine Betts. The patient had recently had a colonoscopy and had cauterizations he noted that he had dyspnea with exertion but no resting shortness of breath. He was on prednisone at that time. His sugars were in the 300s. He was on insulin. His neuropathy has not changedand he continues to have tremors. Current level was found to be saturated. Once again the patient was reluctant to start CHRISTIE. 06/15/2023. Follow-up with Elaine Betts. CBC showed white count 1.8 with a hemoglobin 8.9 hematocrit 26.9 and a platelet count of 100,000. Absolute neutrophil count was 0.96. 07/08/2023. CBC showed a white count of 1.8 with hemoglobin 9.5 hematocrit 28.8 and a platelet count of 85,000 with an absolute neutrophil count of 0.99. 07/15/2023. Follow-up with Dr. Rick. PSA has gone down to 1.87. 08/10/2023. Follow-up with Elaine Betts who noted the patient remained on oxygen and CPAP. He says that he is awakening in the middle of the night around 3 to 4:00 in the morning. Sugars have been in the 300s. Neuropathy was unchanged. He had been started on erythropoietin every 3 weeks 09/22/2023. Follow-up with Elaine Betts. No improvement in his hemoglobin. White count had improved to 2.1 platelets were baseline. He had been placed on 40 mg of prednisone and continued on erythropoietin 300 mcg every 3 weeks. 11/03/2023. Follow-up with Elaine Betts. No improvement in hemoglobin. Symptomatically he was doing well. Plan was to increase frequency of his darbepoetin to every 2 weeks. 12/15/2023. Follow-up with Elaine Betts. Now on erythropoietin injections every 2 weeks. There was a discussion concerning repeat bone marrow biopsy with counts stayed low. 01/12/2024. Follow-up with Elaine Betts. No improvement in his hemoglobin. Patient was agreeable to repeat bone marrow biopsy. She also ordered a CAT scan of the chest abdomen and pelvis without contrast. 01/22/2024. CAT scan showed severe coronary artery calcifications. There is evidence of bronchiectasis in the lower lobes increased compared to previous CT scan from 2019. Predominantly groundglass opacities with bibasilar prominence. There is some subpleural sparing of the left upper lobe. There is a 3 mm nodule in the right upper lobe which was unchanged for several years. 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 There is a small fat-containing periumbilical hernia and bilateral inguinal hernias. Spleen size is at the upper limitsof normal being 12.7 cm in length slightly increased when compared to study from 2019. Cysts were seen in the kidneys with diffuse cortical atrophy and a 4 mm hyperdense focus in the interpolar region of the right kidney possibly a stone. Prostatism was noted for gland measuring 6.2 cm. 01/28/2024. Seen by Dr. Harp for shortness of breath. He felt the patient had possible chronic interstitial lung disease versus periodic aspiration, hypoxia dyspnea on exertion. Further tests wereordered including high-resolution CT scan, complete pulmonary function testing, simple pulmonary stress test and follow-up. 02/09/2024. Follow-up with Elaine Betts. Erythropoietin injections continued every 2 weeks which the patient was tolerating well. 02/16/2024. Bone marrow biopsy was performed showing a hypercellular bone marrow at 50% with dyserythropoiesis. There are 1% blasts consistent with persistent myeloid neoplasm. Flow cytometry showed asmall clonal CD5 negative, CD10 negative B-cell population and a polytypic background. 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 There was a very small abnormal T-cell population that could be incidental. Next generation sequencing showed 2 U2AF 1 variants, 1 of which was negative. The other had been previously seen. The marrow also showed dyserythropoiesis with bilobate forms and forms with irregular nuclear contours as well as blebbing. 02/23/2024. CBC showed white count 1.5 with a hemoglobin of 8.3 hematocrit 25.9 and platelet count of 71,000 with 37% neutrophils, 53 lymphocytes, 4 monos, 4 eosinophils with an absolute neutrophil count of 0.57. 02/24/2024. Return visit with Dr. Harp. He noted that the high-resolution CT scan showed no significant change from the previous CT scan the month before. Pulmonary function testing showed no response to bronchodilator and there was mild restrictive change with some suggestion of airway inflammation. The patient had difficulty doing the test because of persistent coughing. 6-minute walk test showed that the patient was able to maintain saturations at 93% with 2 L of oxygen per minute continuously. The test was terminated because of dyspnea. With his hypoxia on room air it was recommended that he be on oxygen continuously to keep his saturation greater than or equal to 92%. He continued on oxygen with his CPAP at 3 L at nighttime. 03/11/2024. This is my first visit with Mr. Chaves and his family. We went over some of the results of the bone marrow biopsy. I told him that I would have to wait until the chromosomal analysis returned. I also note the possibility of low-grade lymphoma. He may need to have an opinion with malignanthematology at [facility]. Stepdaughter who is here with him and his today is his advocate for maintaining his quality of life. She is an employee at a local nursing facility and is concerned about many clients she has who seem to be getting treated aggressively. 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 He will continue on this treatment for now. Heis low counts were discussed and he knows that he is at higher risk for infection and bleeding. He continues on oxygen supplementation continuously. They will return in 2 weeks at which time laboratory tests will be performed. He just had a lesion removed from the dorsum of his right hand at the base of his first and second fingers. Stitches are still in place. It seems to be healing well without any significant bleeding or infection. He was told that it looked benign. 03/14/2024. Follow-up with Dr. Vianney Judge of cardiology who saw him in follow-up of his coronary artery disease with multiple stents having been placed, hypertension, dyslipidemia and previous pulmonary embolus related to COVID-19. She had stopped his Eliquis. 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 She notedthat at some point his aspirin had been stopped but given his history of stents this was restarted and he tolerated it well. She said that his blood pressure was well- controlled. She noted blood sugars were between 150-2 50. She noted the patient was supposed to be using oxygen with exertion but the patient was not sure what rate it was supposed to be. She says that she would not stop his aspirinunless his platelets were less than 50,000 with complications of bleeding. She said it was very important to continue aspirin given a 15% chance of in-stent thrombosis with aspirin cessation. She increased her furosemide to 80 mg twice a day because of bilateral lower extremity edema and spironolactone to 25 mg twice daily until symptoms improve and encouraged him to cut back on his salt intake. She was see him again in about 9 months. 03/15/2024. Follow-up with Dr. Adams of ophthalmology who started him on Naphcon- A drops 1 drop 3 times a day in both eyes for excessive tearing 03/16/2024. Followed up with Dr. Robert Mortensen of podiatry who noted decreased pedal pulses 2 out of 4. He had footcare. 03/25/2024. Follow-up with Dr. Harp. Review of his x-rays showed no change. Physical examinationshowed decreased breath sounds but no inspiratory crackles that were previously heard. He felt thatthe interstitial lung disease was stable and that his hypoxemia was improved on oxygen. He plan to repeat CT scan in July. 03/25/2024. He is here to follow-up on his bone marrow results. I told him that the chromosomal analysis would not be forthcoming before because the specimen failed to grow in culture. 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 We reviewed the fact that he is recommended tohave at least 6 months of his erythropoietin before we decide whether or not it is a failure. He isagreeable to this. We will increase his dose of darbepoetin. He knows to be on the look out for anysigns of infection or bleeding and to report this if it happens. We reviewed his most recent CBC. We will see him again in 2 weeks with his next injection. Interval Note 03/31/2024. Follow-up with Dr. Dr. العراقي for his Medicare wellness visit. His magnesium dose waschanged to twice daily indefinitely. 04/08/2024. He is here today for his darbepoetin injection. We have increased his dose to 500 mcg every 2 weeks. Will see if this has any effect. Laboratory dated today shows that his sugar is 290 and his sodium is 134. BUN is 46 and creatinine is 2.31. CBC shows white count 1.5 with a hemoglobin 8.1hematocrit 24.7 and a platelet count of 71,000 which is very much like his most recent CBC. His absolute neutrophil count is 0.57. I talked to him about his current status which he feels is fairly stable. He is off oxygen. He has had no bleeding and no signs of infection. He understands that we have increased his dose of darbepoetin and we will watch his counts. He will report any side effects. Comorbidities GERD Arthritis, DJD BPH Coronary artery disease with history of myocardial, status post stent infarction History of dumping syndrome Hyperlipidemia History of skin cancer Obesity Obstructive sleep apnea on CPAP Peripheral arterial disease CKD 3 Diabetes with nephropathy History of cholecystectomy and hernia repair Essential tremor Hypertension Numbness in his fingers felt to be related to cervical disc disease. Monitoring Parameters Histories, physical examinations and CBCs with occasional bone marrow biopsies. Review of Systems - Oncology Review of Systems Constitutional: Positive for fatigue. Negative for appetite change and unexpected weight change. HENT: Negative for dental problem, mouth sores and trouble swallowing. Eyes: Negative for visual disturbance. Respiratory: Positive for shortness of breath. Negative for cough. Cardiovascular: Positive for leg swelling. Gastrointestinal: Negative for abdominal pain, blood in stool, diarrhea, nausea, rectal pain and vomiting. Endocrine: Negative for polyuria. Genitourinary: Negative for dysuria and urgency. Musculoskeletal: Positive for arthralgias and myalgias. Skin: Negative for pallor. Neurological: Negative for weakness, light-headedness, numbness and headaches. Hematological: Bruises/bleeds easily. Psychiatric/Behavioral: Negative for self-injury, sleep disturbance and suicidal ideas. The patientis not nervous/anxious. Past Medical History Past Medical History: Diagnosis Date Abnormal levels of other serum enzymes Abnormal liver enzymes Dependence on other enabling machines and devices CPAP (continuous positive airway pressure) dependence Encounter for examination of eyes and vision without abnormal findings Diabetic eye exam Localized edema Bilateral leg edema Old myocardial infarction History of myocardial infarction Other conditions influencing health status 11/09/2019 Uncontrolled diabetes mellitus type 2 without complications Pain in unspecified ankle and joints of unspecified foot Arthralgia of ankle Personal history of other diseases of the digestive system History of gastroesophageal reflux (GERD) Personal history of other diseases of the digestive system History of dumping syndrome Personal history of other endocrine, nutritional and metabolic disease 09/13/2020 History of type 2 diabetes mellitus Presence of coronary angioplasty implant and graft History of coronary artery stent placement Rash and other nonspecific skin eruption 10/12/2019 Rash Unspecified abdominal hernia without obstruction or gangrene Hernia Unspecified abdominal pain 03/20/2021 Abdominal pain, left lateral Surgical History Past Surgical History: Procedure Laterality Date OTHER SURGICAL HISTORY 08/10/2019 Arterial stent placement OTHER SURGICAL HISTORY 08/10/2019 Cholecystectomy OTHER SURGICAL HISTORY 08/10/2019 Hernia repair Social History Social History Tobacco Use Smoking status: Never Smokeless tobacco: Never Vaping Use Vaping status: Never Used Substance Use Topics Alcohol use: Never Drug use: Never Family History family history includes Colon cancer in his mother and another family member. Current Medications Current Outpatient Medications Medication Instructions allopurinol (ZYLOPRIM) 100 mg, oral, Daily amLODIPine (NORVASC) 5 mg, oral, Daily before breakfast ascorbic acid (VITAMIN C) 250 mg, oral aspirin 81 mg, oral, Daily atorvastatin (LIPITOR) 40 mg, oral, Daily blood-glucose sensor (FreeStyle [place] 3 Sensor) device Use as directed Constulose 10 gram/15 mL oral solution TAKE 45mL (30g) BY MOUTH TWICE DAILY FOR 30 DAYS cyanocobalamin, vitamin B-12, (Vitamin B-12) 1,000 mcg tablet extended release 1 tablet, oral ferrous sulfate 27 mg, oral, Daily furosemide (LASIX) 40 mg, oral, Daily gabapentin (NEURONTIN) 300 mg, oral, 2 times daily lancets 33 gauge misc miscellaneous, 2 times daily Lantus U-100 Insulin 50 Units, subcutaneous, Nightly magnesium chloride (MAG 64) 64 mg, oral, 2 times daily metoprolol tartrate (LOPRESSOR) 50 mg, oral, 2 times daily multivit-minerals/folic acid (CENTRUM ADULTS ORAL) oral nitroglycerin (NITROSTAT) 0.4 mg, sublingual, Every 5 min PRN NON FORMULARY Truetrack test In vitro strip; Use as directed to check blood sugar 2 times daily pantoprazole (PROTONIX) 40 mg, oral, 2 times daily pen needle, diabetic (Pen Needle) 32 gauge x 5/32 needle 1 each, miscellaneous, Daily primidone (MYSOLINE) 50 mg, oral, Nightly spironolactone (ALDACTONE) 25 mg, oral, Daily sucralfate (CARAFATE) 1 g, oral, 3 times daily (morning, midday, late afternoon) vitamins A,C,I-kkfm-gzifzh 2,148 mcg-113 mg-45 mg-17.4mg tablet oral, [place] OAR[facility] Review I have personally reviewed the OARRS report for Jewel Recio Anastacio. I have considered the risks of abuse, dependence, addiction and diversion. Evaluation as document shows that he is on gabapentin. Vital Signs BP 137/69 (BP Location: Right arm, Patient Position: Sitting, BP Cuff Size: Adult) Pulse 61 Temp 36.2 C (97.2 F) (Skin) Resp 16 Wt 105 kg (232 lb 3.2 oz) SpO2 95% BMI 36.37 kg/m Physical Exam Vitals and nursing note reviewed. Exam conducted with a hold worker present. Constitutional: General: He is not in acute distress. Appearance: He is ill-appearing. He is not toxic-appearing. Comments: He is a well-developed well-nourished overweight elderly white male who is unaccompanied again today. He does not have his oxygen on. He appears to be somewhat chronically ill and pale. He is in good spirits. HENT: Head: Normocephalic and atraumatic. Nose: Nose normal. Mouth/Throat: Mouth: Mucous membranes are moist. Pharynx: Oropharynx is clear. No oropharyngeal exudate or posterior oropharyngeal erythema. Eyes: General: No scleral icterus. Extraocular Movements: Extraocular movements intact. Conjunctiva/sclera: Conjunctivae normal. Pupils: Pupils are equal, round, and reactive to light. Neck: Comments: No significant lymphadenopathy is palpated in the head neck region, supraclavicular or axillary areas bilaterally. Cardiovascular: Heart sounds: Murmur heard. Pulmonary: Effort: Pulmonary effort is normal. No respiratory distress. Breath sounds: No rales. Comments: He has occasional rhonchi in the bases. Abdominal: General: There is no distension. Musculoskeletal: General: Swelling present. Normal range of motion. Cervical back: Normal range of motion. Right lower leg: Edema present. Left lower leg: Edema present. Skin: General: Skin is warm and dry. Coloration: Skin is pale. Skin is not jaundiced. Findings: Bruising present. Neurological: General: No focal deficit present. Mental Status: He is alert and oriented to person, place, and time. Mental status is at baseline. Motor: No weakness. Gait: Gait normal. Comments: He is hard of hearing Psychiatric: Mood and Affect: Mood normal. Behavior: Behavior normal. Thought Content: Thought content normal. Judgment: Judgment normal. Comments: He seems to be in good spirits. Current Laboratory Data Recent Results (from the past 168 hour(s)) CBC and Auto Differential Collection Time: 04/08/24 11:47 AM Result Value Ref Range WBC 1.5 (L) 4.4 - 11.3 x10*3/uL nRBC 0.0 0.0 - 0.0 /100 WBCs RBC 2.32 (L) 4.50 - 5.90 x10*6/uL Hemoglobin 8.1 (L) 13.5 - 17.5 g/dL Hematocrit 24.7 (L) 41.0 - 52.0 % MCV 107 (H) 80 - 100 fL MCH 34.9 (H) 26.0 - 34.0 pg MCHC 32.8 32.0 - 36.0 g/dL RDW 19.9 (H) 11.5 - 14.5 % Platelets 71 (L) 150 - 450 x10*3/uL Neutrophils % 38.0 40.0 - 80.0 % Immature Granulocytes %, Automated 1.3 (H) 0.0 - 0.9 % Lymphocytes % 52.7 13.0 - 44.0 % Monocytes % 4.0 2.0 - 10.0 % Eosinophils % 3.3 0.0 - 6.0 % Basophils % 0.7 0.0 - 2.0 % Neutrophils Absolute 0.57 (L) 1.60 - 5.50 x10*3/uL Immature Granulocytes Absolute, Automated 0.02 0.00 - 0.50 x10*3/uL Lymphocytes Absolute 0.79 (L) 0.80 - 3.00 x10*3/uL Monocytes Absolute 0.06 0.05 - 0.80 x10*3/uL Eosinophils Absolute 0.05 0.00 - 0.40 x10*3/uL Basophils Absolute 0.01 0.00 - 0.10 x10*3/uL Comprehensive Metabolic Panel Collection Time: 04/08/24 11:47 AM Result Value Ref Range Glucose 290 (H) 74 - 99 mg/dL Sodium 134 (L) 136 - 145 mmol/L Potassium 5.0 3.5 - 5.3 mmol/L Chloride 102 98 - 107 mmol/L Bicarbonate 25 21 - 32 mmol/L Anion Gap 12 10 - 20 mmol/L Urea Nitrogen 46 (H) 6 - 23 mg/dL Creatinine 2.31 (H) 0.50 - 1.30 mg/dL eGFR 27 (L) >60 mL/min/1.73m*2 Calcium 9.0 8.6 - 10.3 mg/dL Albumin 4.1 3.4 - 5.0 g/dL Alkaline Phosphatase 93 33 - 136 U/L Total Protein 6.2 (L) 6.4 - 8.2 g/dL AST 24 9 - 39 U/L Bilirubin, Total 1.0 0.0 - 1.2 mg/dL ALT 18 10 - 52 U/L Morphology Collection Time: 04/08/24 11:47 AM Result Value Ref Range RBC Morphology See Below Polychromasia Mild RBC Fragments Few Ovalocytes Few Teardrop Cells Few Basophilic Stippling Present Recent Imaging OCT MACULA CIRRUS OU (BOTH EYES) Result Date: 03/15/2024 Date of Procedure 03/15/2024. Enrollment Services Vice President Information [employer] Operator Helper: gabriela. Interpretation Right Eye Normal without fluid. Left Eye Abnormal foveal contour. Findings include Lamellar hole. Interval Change Right Eye Stable. Left Eye Stable. Pathology Low-grade myelodysplasia Performance Status: Symptomatic; fully ambulatory Assessment/Plan 1. Pancytopenia. The patient has unusual bone marrow findings. Chromosomal analysis will not be done due to failure of the specimen to grow. 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 He also has components of myelodysplasia. He is not responding to erythropoietin. We willincrease his dose to 500 mcg every other week. He continues to be at high risk for bleeding and infection with a low ANC and low platelet count. He has had previous GI bleeds. He is currently back onhis aspirin per follow-up with Dr. Judge for fear of clotting off his stents. He is off Eliquis. . 2. Multiple comorbidities. 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 He knows that he should call in the interim should he have any change in his status, questions or concerns. (This note was generated with voice recognition software and may contain errors including spelling,grammar, syntax and misrecognition of what was dictated, that are not fully corrected) Yisel Prado MD documented [facility] Work Phone: 1(113) 976-904306-07-2024 Instructions* Patient Instructions* Yisel Prado MD - 04/08/2024 11:00 AM EDT Reviewed labs and recent medical history. Discussed with patient that we have increased his Aranesp to 500mcg every 2 weeks. Okay to get his injection today. 04/08/24 He will return in 2 weeks to get his next injection. He will return to see MD in 1 month with that injection. Encouraged him to call with questions or concerns. documented in this encounterCh[facility] Work Phone: [phone]) 289-849305-30-2024 History of Present illness Narrative* Anya Peterson MA - 03/31/2024 2:00 PM EDT Subjective Patient ID: Jewel Chaves is a 88 y.o. male who presents for 3 month follow up. Labs has been completed. Needs refill on the Mag 64 & Sucralfate. HPI Review of Systems Objective There were no vitals taken for this visit. Physical Exam Assessment/Plan * Palmira العراقي MD - 03/31/2024 2:00 PM EDT Subjective Reason for Visit: Jewel Chaves is an 88 y.o. male here for a Medicare Wellness visit. Past Medical, Surgical, and Family History reviewed and updated in chart. Reviewed all medications by prescribing practitioner or clinical pharmacist (such as prescriptions,OTCs, herbal therapies and supplements) and documented in the medical record. Here for routine follow up HTN, DM, CKD (Dr Martin), CAD ([facility]), high chol, thrombocytopenia/anemia/pancytopenia (Dr Prado), tremor (Dr Can), DWAIN, h/o PE, GI bleed, DWAIN on CPAP - tolerating well ([facility]). He states that he is doing pretty well. He does have oxygen to wear now during the day.He is on injections for his anemia. Advance directives:. Advanced Care Planning discussed and documented advance care plan or surrogatedecision maker documented in the medical record. Patient has living will. Patient has healthcare POA. He would like to get a DNR form - states that if his heart stops he does not want CPR/etc. Patient Care Team: Palmira العراقي MD as PCP - General Palmira العراقي MD as PCP - [facility] Attributed Provider Mariah Can MD as Referring Physician (Neurology) Yisel Prado MD as Consulting Physician (Hematology and Oncology) Objective Vitals: BP 116/54 (BP Location: Left arm, Patient Position: Sitting, BP Cuff Size: Adult) Pulse 84 Ht 1.702 m (5' 7) Wt 106 kg (233 lb 3.2 oz) SpO2 91% BMI 36.52 kg/m Physical Exam Vitals reviewed. Constitutional: General: He is not in acute distress. Cardiovascular: Rate and Rhythm: Normal rate and regular rhythm. Heart sounds: No murmur heard. Pulmonary: Effort: Pulmonary effort is normal. No respiratory distress. Breath sounds: Normal breath sounds. Skin: General: Skin is warm and dry. Neurological: General: No focal deficit present. Mental Status: He is alert. Mental status is at baseline. Assessment/Plan Problem List Items Addressed This Visit CAD (coronary artery disease) Type 2 diabetes mellitus with stage 4 chronic kidney disease, with long-term current use of insulin(Multi) Hypertension Mixed hyperlipidemia Neutropenia ([facility]) DWAIN on CPAP Thrombocytopenia ([facility]) Tremor, essential Other Visit Diagnoses Routine general medical examination at health care facility - Primary 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) Leukopenia, unspecified type Essential (primary) hypertension Type 2 diabetes mellitus with diabetic chronic kidney disease (Multi) Chronic kidney disease, stage 3 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Multi) Gastric ulcer, unspecified chronicity, unspecified whether gastric ulcer hemorrhage or perforation present Relevant Medications sucralfate (Carafate) 1 gram tablet Low magnesium level Relevant Medications magnesium chloride (Mag 64) 64 mg EC tablet documented in this encounterCh[facility] Work Phone: [phone]) 750-778605-30-2024 Instructions* Patient Instructions* Palmira العراقي MD - 03/31/2024 2:00 PM EDT Continue current medications. Follow up with specialists as scheduled. Follow up in 6 months, sooner if needed. documented in [facility] encounterCh[facility] Work Phone: 1(134) 780-323205-24-2024 History of Present illness Narrative* Yisel Prado MD - 03/25/2024 12:30 PM EDT Patient ID:Jewel Chaves is a 88 y.o. year old male patient with myelodysplasia Referring Physician: Yisel Prado MD [address] [place] [address] Dr [address] [place] [phone] Primary Care Provider: Palmiar العراقي MD Chief Complaint Chief Complaint Patient presents with Anemia History of the Present Illness 08/10/2019. Visit with Dr. Jose J Martin for chronic kidney disease and hypertension. Chief complaint was fatigue and need to lose weight 09/13/2019. The patient has had long-term history of microcytic anemia going back to at least 2018 at which time his white count was 5.2 hemoglobin was 13.8 hematocrit 40.5 and a platelet count of 157,000. His MCV was 105 MCHC was 34. White blood cell differential count showed 66% polys, 17 lymphs,11 monos and 4 eosinophils. 10/12/2019. Seen by primary care for probable shingles treated with Valtrex with chief complaint ofwaxing and waning left flank pain radiating up under his ribs, somewhat responsive to exercise.. Hehad a history of pulmonary embolus and was on Eliquis long-term. 12/26/2019. Seen by Dr. Rick for elevated PSA, BPH and erectile dysfunction. PSA in 2017 was 2.94, in 2018 it was 2.74 and in 2019 it was 4.03. We discussed biopsy and the patient wanted to have this followed and not biopsy. 01/09/2020. Follow-up with Jae Gannon APRN primary care. Referred to Dr. Chopra for colonoscopy and CT scan of the chest was ordered for follow-up of questionable lingular nodule. 01/11/2020. CT scan of the chest showed a stable 6 mm nodular lesion near the fissure in the lingula. 01/13/2020. Seen by Dr. Chopra who noted that the patient had had diarrhea off-and-on since cholecystectomy and had intermittent left-sided pain. He had a history of colon polyps. 02/21/2015. 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 Seen by Dr. Nancy Rios in follow-up. She noted that he had an abnormal CBC with macrocytic indices with a normal B12 level. The patient denies alcohol use. Hemoglobin A1c was 6.2. BUN was 33 creatinine was 1.74. 07/02/2020. Follow-up with Dr. Rick. PSA had come down from 4.03-3.77 11/05/2020 through 11/13/2020. Admitted to the hospital having been brought to the ED by squad after he fell forward on his toilet and was unable to get up. He denied hitting his head or losing consciousness. He blamed it on having back pain and shoulder pain for several weeks. He was febrile with a temperature of 100.9 and hypoxic with pulse ox of 86% on room air. Respirations were 24. He was positive for COVID and was treated with intravenous antibiotics and remdesivir, increased supplemental oxygen. He was able to be discharged to rehabilitation. Repeat CBC showed white count 4.3 with a hemoglobin 12.9 hematocrit 38.8 with an MCV of 102 and a platelet count of 173,000. White blood cell differential count showed minimal absolute lymphocytopenia at 0.6 with the lower limits of normal being 0.8. 12/31/2020. Follow-up with Dr. Rick. PSA was 9.9 in December. Decided to have prostate biopsy done on01/21/2021. Results showed BPH. 08/07/2021. Follow-up with Dr. Rick. PSA in July was 2.77 02/05/2022. CBC showed white count 4.3 with hemoglobin 11.7 hematocrit 34.4 with an MCV of 107. Platelet count was 153,000. White blood cell differential count was essentially normal. 04/01/2022. CBC showed white count 3.6 with hemoglobin 11.6 hematocrit 34.4 and platelet count 117,000 with a normal white blood cell differential. 04/28/2022. Referred to Dr. Parra because of pancytopenia by Emma Hawkins APRN. CBC showed a white count of 3.9 with hemoglobin 12.3 hematocrit 36.1 and platelet count 129,000 with a normal differential. PSA was 3.26. The patient said that he felt well except for having increased fatigue. He continued on long-term anticoagulation. He was able to carry out his ADLs. He did complain of easy bruising. 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 Dr. Parra felt that there was a large component secondary to his chronic kidney disease. There was no evidence of nutritional deficiency. He checked him for hemolysis and monoclonal gammopathy and ordered an ultrasound for hepatosplenomegaly and testing for hepatitis, HIV and MAURIZIO. He said he would rather observe the patient rather than pursuing a bone marrow biopsy. 05/28/2022. Repeat lab data showed white count 3.9 with hemoglobin 12.3 hematocrit 36.1 and plateletcount 129,000. BUN was 36 creatinine was 1.78. He had mild elevation of AST. Retake count was 2.3%.Flow cytometry showed a small clonal B-cell population. Hepatitis B was nonreactive. Hep C testing was negative. Serum protein electrophoresis was normal. Haptoglobin was normal. LDH was normal. He said that the possibility of MDS could not be ruled out. Ultrasound showed fatty liver but no splenomegaly. He plan for EPO level and NGS for myeloid mutation. 07/03/2022. 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 2022. Seen by Dr. Dr. العراقي. Patient was referred to dermatology for several skin lesions. He was referred to neurology because of his tremor that was not improving. She increased his glimepiride. 08/18/2022. CBC showed white count 3.0 with hemoglobin 10.5 hematocrit 31.3 and a platelet count of106,000 MCV was 111. 08/27/2022. Follow-up with Dr. 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 He was suspicious for MDS. He referred him for a bone marrow biopsy. 10/02/2022. Follow-up with Dr. Parra. Bone marrow biopsy showed low-grade MDS. R IPSS score was low or very low depending on a karyotype which was still pending. We discussed initiating erythropoietinwith Aranesp but the patient deferred and the decision was made to monitor him. 11/12/2022. CBC showed white count 3.4 with hemoglobin 10.3 hematocrit 32.2 and a platelet count of 137,000. MCV was 115. White blood cell differential count was normal. 11/14/2022. Follow-up with Dr. Parra. The patient did say that he had following getting out of the shower but did not sustain any injuries. He had been started by Dr. Martin on insulin for his diabeteswhich was helpful. Patient continued to be active inside his house. He remains on Eliquis. BR-IPSS score is very low. Counts remain stable. 01/30/2023. CBC showed a white count of 2.6 with hemoglobin 8.7 hematocrit 27.1 and a platelet count97,000. MCV was 115. White blood cell differential count showed that he had an absolute neutrophil count of 1.36. 02/09/2023. CBC showed a white count of 2.5 with a hemoglobin 9.0 hematocrit of 27.7 with a plateletcount of 92,000. MCV was 114. 02/16/2023. Follow-up with Elaine Betts APRN. Even though his hemoglobin had dropped to 9 the patient did not want to start his erythropoietin injections. 03/12/2023. CBC showed white count of 2.5 with a hemoglobin of 7.6 hematocrit 23.8 and a platelet count of 101,000. Absolute neutrophil count was 1.17. 03/16/2023 through 03/20/2023. Admitted to the hospital with anemia and generalized weakness black stools dizziness with a hemoglobin of 6.7. His BUN was [address] scan of the abdomen showed no acute process. There were findings consistent with atypical healing of the previous rib fra cture with question Paget's disease although it was nonspecific. He was transfused 2 units packed red blood cells. EGD found 3 erosions in the cardia. He was prescribed Carafate. 03/25/2023. Follow-up with Dr. Dr. العراقي after discharge. CBC showed white count 1.9 with hemoglobin 8.6 hematocrit 28.3 and a platelet count of 140,000. Absolute neutrophil count was 1.06. Patient did not tolerate Carafate and stopped it. He was prescribed oral iron twice a day. He had not beenprescribed a PPI which was then started. 04/02/2023. CBC showed white count of 1.9 with hemoglobin 7.7 hematocrit 24.8 and a platelet count of87,000. 04/14/2023. CBC showed a white count of 1.9 with hemoglobin of 8.7 hematocrit 28.1 and platelet count of 89,000. 04/24/2023. Followed up with Dr. Dr. العراقي who reported that he was hospitalized again in [place] for GI bleed. At that time his Eliquis was discontinued and he was changed to Protonix and taken off his baby aspirin. Once again he was started on Carafate but did not tolerate it. 05/16/2023. CBC showed white count of 2.4 with hemoglobin 9.2 hematocrit 27.3 and a platelet count of 110,000. Absolute neutrophil count was 1.36. 05/18/2023. Follow-up with Elanie Betts. The patient had recently had a colonoscopy and had cauterizations he noted that he had dyspnea with exertion but no resting shortness of breath. He was on prednisone at that time. His sugars were in the 300s. He was on insulin. His neuropathy has not changedand he continues to have tremors. Current level was found to be saturated. Once again the patient was reluctant to start CHRISTIE. 06/15/2023. Follow-up with Elaine Betts. CBC showed white count 1.8 with a hemoglobin 8.9 hematocrit 26.9 and a platelet count of 100,000. Absolute neutrophil count was 0.96. 07/08/2023. CBC showed a white count of 1.8 with hemoglobin 9.5 hematocrit 28.8 and a platelet count of 85,000 with an absolute neutrophil count of 0.99. 07/15/2023. Follow-up with Dr. Rick. PSA has gone down to 1.87. 08/10/2023. Follow-up with Elaine Betts who noted the patient remained on oxygen and CPAP. He says that he is awakening in the middle of the night around 3 to 4:00 in the morning. Sugars have been in the 300s. Neuropathy was unchanged. He had been started on erythropoietin every 3 weeks 09/22/2023. Follow-up with Elaine Betts. No improvement in his hemoglobin. White count had improved to 2.1 platelets were baseline. He had been placed on 40 mg of prednisone and continued on erythropoietin 300 mcg every 3 weeks. 11/03/2023. Follow-up with Elaine Betts. No improvement in hemoglobin. Symptomatically he was doing well. Plan was to increase frequency of his darbepoetin to every 2 weeks. 12/15/2023. Follow-up with Elaine Betts. Now on erythropoietin injections every 2 weeks. There was a discussion concerning repeat bone marrow biopsy with counts stayed low. 01/12/2024. Follow-up with Elaine Betts. No improvement in his hemoglobin. Patient was agreeable to repeat bone marrow biopsy. She also ordered a CAT scan of the chest abdomen and pelvis without contrast. 01/22/2024. CAT scan showed severe coronary artery calcifications. There is evidence of bronchiectasis in the lower lobes increased compared to previous CT scan from 2020. Predominantly groundglass opacities with bibasilar prominence. There is some subpleural sparing of the left upper lobe. There is a 3 mm nodule in the right upper lobe which was unchanged for several years. 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 There is a small fat-containing periumbilical hernia and bilateral inguinal hernias. Spleen size is at the upper limitsof normal being 12.7 cm in length slightly increased when compared to study from 2019. Cysts were seen in the kidneys with diffuse cortical atrophy and a 4 mm hyperdense focus in the interpolar region of the right kidney possibly a stone. Prostatism was noted for gland measuring 6.2 cm. 01/28/2024. Seen by Dr. Harp for shortness of breath. He felt the patient had possible chronic interstitial lung disease versus periodic aspiration, hypoxia dyspnea on exertion. Further tests wereordered including high-resolution CT scan, complete pulmonary function testing, simple pulmonary stress test and follow-up. 02/09/2024. Follow-up with Elaine Betts. Erythropoietin injections continued every 2 weeks which the patient was tolerating well. 02/16/2024. Bone marrow biopsy was performed showing a hypercellular bone marrow at 50% with dyserythropoiesis. There are 1% blasts consistent with persistent myeloid neoplasm. Flow cytometry showed asmall clonal CD5 negative, CD10 negative B-cell population and a polytypic background. 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 There was a very small abnormal T-cell population that could be incidental. Next generation sequencing showed 2 U2AF 1 variants, 1 of which was negative. The other had been previously seen. The marrow also showed dyserythropoiesis with bilobate forms and forms with irregular nuclear contours as well as blebbing. 02/23/2024. CBC showed white count 1.5 with a hemoglobin of 8.3 hematocrit 25.9 and platelet count of 71,000 with 37% neutrophils, 53 lymphocytes, 4 monos, 4 eosinophils with an absolute neutrophil count of 0.57. 02/24/2024. Return visit with Dr. Harp. He noted that the high-resolution CT scan showed no significant change from the previous CT scan the month before. Pulmonary function testing showed no response to bronchodilator and there was mild restrictive change with some suggestion of airway inflammation. The patient had difficulty doing the test because of persistent coughing. 6-minute walk test showed that the patient was able to maintain saturations at 93% with 2 L of oxygen per minute continuously. The test was terminated because of dyspnea. With his hypoxia on room air it was recommended that he be on oxygen continuously to keep his saturation greater than or equal to 92%. He continued on oxygen with his CPAP at 3 L at nighttime. 03/11/2024. This is my first visit with Mr. Chaves and his family. We went over some of the results of the bone marrow biopsy. I told him that I would have to wait until the chromosomal analysis returned. I also note the possibility of low-grade lymphoma. He may need to have an opinion with [facility]hematology at [facility]. Stepdaughter who is here with him and his today is his advocate for maintaining his quality of life. She is an employee at a local nursing facility and is concerned about many clients she has who seem to be getting treated aggressively. 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 He will continue on this treatment for now. Heis low counts were discussed and he knows that he is at higher risk for infection and bleeding. He continues on oxygen supplementation continuously. They will return in 2 weeks at which time laboratory tests will be performed. He just had a lesion removed from the dorsum of his right hand at the base of his first and second fingers. Stitches are still in place. It seems to be healing well without any significant bleeding or infection. He was told that it looked benign. Interval Note 03/14/2024. Follow-up with Dr. Vianney Judge of cardiology who saw him in follow-up of his coronary artery disease with multiple stents having been placed, hypertension, dyslipidemia and previous pulmonary embolus related to COVID-19. She had stopped his Eliquis. 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 She notedthat at some point his aspirin had been stopped but given his history of stents this was restarted and he tolerated it well. She said that his blood pressure was well- controlled. She noted blood sugars were between 150-2 50. She noted the patient was supposed to be using oxygen with exertion but the patient was not sure what rate it was supposed to be. She says that she would not stop his aspirinunless his platelets were less than 50,000 with complications of bleeding. She said it was very important to continue aspirin given a 15% chance of in-stent thrombosis with aspirin cessation. She increased her furosemide to 80 mg twice a day because of bilateral lower extremity edema and spironolactone to 25 mg twice daily until symptoms improve and encouraged him to cut back on his salt intake. She was see him again in about 9 months. 03/15/2024. Follow-up with Dr. Adams of ophthalmology who started him on Naphcon- A drops 1 drop 3 times a day in both eyes for excessive tearing 03/16/2024. Followed up with Dr. Robert Mortensen of podiatry who noted decreased pedal pulses 2 out of 4. He had footcare. 03/25/2024. Follow-up with Dr. Harp. Review of his x-rays showed no change. Physical examinationshowed decreased breath sounds but no inspiratory crackles that were previously heard. He felt thatthe interstitial lung disease was stable and that his hypoxemia was improved on oxygen. He plan to repeat CT scan in July. 03/25/2024. He is here to follow-up on his bone marrow results. I told him that the chromosomal analysis would not be forthcoming before because the specimen failed to grow in culture. 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 We reviewed the fact that he is recommended tohave at least 6 months of his erythropoietin before we decide whether or not it is a failure. He isagreeable to this. We will increase his dose of darbepoetin. He knows to be on the look out for anysigns of infection or bleeding and to report this if it happens. We reviewed his most recent CBC. We will see him again in 2 weeks with his next injection. Comorbidities GERD Arthritis, DJD BPH Coronary artery disease with history of myocardial, status post stent infarction History of dumping syndrome Hyperlipidemia History of skin cancer Obesity Obstructive sleep apnea on CPAP Peripheral arterial disease CKD 3 Diabetes with nephropathy History of cholecystectomy and hernia repair Essential tremor Hypertension Numbness in his fingers felt to be related to cervical disc disease. Monitoring Parameters Histories, physical examinations and CBCs with occasional bone marrow biopsies. Review of Systems - Oncology Review of Systems Constitutional: Positive for fatigue. Negative for appetite change and unexpected weight change. HENT: Negative for dental problem and trouble swallowing. Eyes: Negative for visual disturbance. Respiratory: Positive for cough (occasionally) and shortness of breath (breathing is better. Not wearing O2 today). Cardiovascular: Negative for palpitations. Gastrointestinal: Negative for abdominal pain, diarrhea, nausea and vomiting. Genitourinary: Negative for dysuria, frequency, hematuria and urgency. Musculoskeletal: Positive for arthralgias (generalized) and myalgias. Skin: Positive for pallor. Negative for rash. Neurological: Negative for weakness, light-headedness, numbness and headaches. Hematological: Negative for adenopathy. Bruises/bleeds easily. Psychiatric/Behavioral: Negative for self-injury, sleep disturbance and suicidal ideas. The patientis not nervous/anxious. Past Medical History Past Medical History: Diagnosis Date Abnormal levels of other serum enzymes Abnormal liver enzymes Dependence on other enabling machines and devices CPAP (continuous positive airway pressure) dependence Encounter for examination of eyes and vision without abnormal findings Diabetic eye exam Localized edema Bilateral leg edema Old myocardial infarction History of myocardial infarction Other conditions influencing health status 11/09/2019 Uncontrolled diabetes mellitus type 2 without complications Pain in unspecified ankle and joints of unspecified foot Arthralgia of ankle Personal history of other diseases of the digestive system History of gastroesophageal reflux (GERD) Personal history of other diseases of the digestive system History of dumping syndrome Personal history of other endocrine, nutritional and metabolic disease 09/13/2020 History of type 2 diabetes mellitus Presence of coronary angioplasty implant and graft History of coronary artery stent placement Rash and other nonspecific skin eruption 10/12/2019 Rash Unspecified abdominal hernia without obstruction or gangrene Hernia Unspecified abdominal pain 03/20/2021 Abdominal pain, left lateral Surgical History Past Surgical History: Procedure Laterality Date OTHER SURGICAL HISTORY 08/10/2019 Arterial stent placement OTHER SURGICAL HISTORY 08/10/2019 Cholecystectomy OTHER SURGICAL HISTORY 08/10/2019 Hernia repair Social History Social History Tobacco Use Smoking status: Never Smokeless tobacco: Never Vaping Use Vaping status: Never Used Substance Use Topics Alcohol use: Never Drug use: Never Family History family history includes Colon cancer in his mother and another family member. Current Medications Current Outpatient Medications Medication Instructions allopurinol (ZYLOPRIM) 100 mg, oral, Daily amLODIPine (NORVASC) 5 mg, oral, Daily before breakfast ascorbic acid (VITAMIN C) 250 mg, oral aspirin 81 mg, oral, Daily atorvastatin (LIPITOR) 40 mg, oral, Daily blood-glucose sensor (FreeStyle [place] 3 Sensor) device Use as directed Constulose 10 gram/15 mL oral solution TAKE 45mL (30g) BY MOUTH TWICE DAILY FOR 30 DAYS cyanocobalamin, vitamin B-12, (Vitamin B-12) 1,000 mcg tablet extended release 1 tablet, oral ferrous sulfate 27 mg, oral, Daily furosemide (LASIX) 40 mg, oral, Daily gabapentin (NEURONTIN) 300 mg, oral, 2 times daily lancets 33 gauge misc miscellaneous, 2 times daily Lantus U-100 Insulin 50 Units, subcutaneous, Nightly Mag 64 64 mg EC tablet TAKE 1 TABLET BY MOUTH TWICE DAILY for 1 month metoprolol tartrate (LOPRESSOR) 50 mg, oral, 2 times daily multivit-minerals/folic acid (CENTRUM ADULTS ORAL) oral nitroglycerin (NITROSTAT) 0.4 mg, sublingual, Every 5 min PRN NON FORMULARY Truetrack test In vitro strip; Use as directed to check blood sugar 2 times daily pantoprazole (PROTONIX) 40 mg, oral, 2 times daily pen needle, diabetic (Pen Needle) 32 gauge x 5/32 needle 1 each, miscellaneous, Daily primidone (MYSOLINE) 50 mg, oral, Nightly spironolactone (ALDACTONE) 25 mg, oral, Daily sucralfate (CARAFATE) 1 g, oral, 3 times daily (morning, midday, late afternoon) OARRS Review I have personally reviewed the OARRS report for Jewel Recio Anastacio. I have considered the risks of abuse, dependence, addiction and diversion. Evaluation of this document shows that he continues on gabapentin from his primary care provider. Vital Signs Blood pressure is 129/59. Pulse is 69. Temperature is 97.5. Respirations are 18 and unlabored. Weight is 229 pounds. Pulse ox on room air is 93%. Physical Exam Constitutional: General: He is not in acute distress. Appearance: He is obese. He is ill-appearing (mildly chronically). He is not toxic-appearing. Comments: He is a well-developed well-nourished overweight elderly white male who is unaccompanied today he does not have his oxygen on. He appears to be somewhat chronically ill and pale. HENT: Head: Normocephalic and atraumatic. Mouth/Throat: Mouth: Mucous membranes are moist. Pharynx: Posterior oropharyngeal erythema present. No oropharyngeal exudate. Comments: Small area in right buccal cavity that looks bruised. Eyes: General: No scleral icterus. Extraocular Movements: Extraocular movements intact. Conjunctiva/sclera: Conjunctivae normal. Pupils: Pupils are equal, round, and reactive to light. Neck: Comments: No significant lymphadenopathy is palpated in the head neck region, supraclavicular or axillary areas bilaterally. Cardiovascular: Rate and Rhythm: Normal rate and regular rhythm. Heart sounds: No murmur heard. Pulmonary: Effort: No respiratory distress. Breath sounds: No wheezing or rales. Comments: Diminished sounds in the bases. Occasional rhonchi. Abdominal: General: There is no distension. Palpations: Abdomen is soft. There is no mass. Tenderness: There is no abdominal tenderness. There is no guarding or rebound. Musculoskeletal: Right lower leg: No edema. Left lower leg: No edema. Skin: Coloration: Skin is pale. Skin is not jaundiced. Findings: Bruising present. Comments: Recent excision on his right dorsum of hand has healed well. He tells me it was not malignant. Neurological: Mental Status: He is alert and oriented to person, place, and time. Comments: He is hard of hearing Psychiatric: Mood and Affect: Mood normal. Behavior: Behavior normal. Thought Content: Thought content normal. Judgment: Judgment normal. Comments: He seems to be in good spirits. He said that he was able to walk into a recent event fromthe parking lot when it was not too difficult for him. He was more talkative today. Current Laboratory Data Recent Results (from the past 168 hour(s)) Comprehensive Metabolic Panel Collection Time: 03/21/24 7:33 AM Result Value Ref Range Glucose 178 (H) 74 - 99 mg/dL Sodium 139 136 - 145 mmol/L Potassium 4.5 3.5 - 5.3 mmol/L Chloride 104 98 - 107 mmol/L Bicarbonate 27 21 - 32 mmol/L Anion Gap 13 10 - 20 mmol/L Urea Nitrogen 51 (H) 6 - 23 mg/dL Creatinine 2.76 (H) 0.50 - 1.30 mg/dL eGFR 21 (L) >60 mL/min/1.73m*2 Calcium 9.1 8.6 - 10.3 mg/dL Albumin 4.0 3.4 - 5.0 g/dL Alkaline Phosphatase 85 33 - 136 U/L Total Protein 6.3 (L) 6.4 - 8.2 g/dL AST 25 9 - 39 U/L Bilirubin, Total 1.1 0.0 - 1.2 mg/dL ALT 17 10 - 52 U/L Hemoglobin A1C Collection Time: 03/21/24 7:33 AM Result Value Ref Range Hemoglobin A1C 8.3 (H) see below % Estimated Average Glucose 192 Not Established mg/dL CBC and Auto Differential Collection Time: 03/21/24 7:33 AM Result Value Ref Range WBC 1.4 (L) 4.4 - 11.3 x10*3/uL nRBC 2.1 (H) 0.0 - 0.0 /100 WBCs RBC 2.35 (L) 4.50 - 5.90 x10*6/uL Hemoglobin 8.0 (L) 13.5 - 17.5 g/dL Hematocrit 25.4 (L) 41.0 - 52.0 % MCV 108 (H) 80 - 100 fL MCH 34.0 26.0 - 34.0 pg MCHC 31.5 (L) 32.0 - 36.0 g/dL RDW 20.3 (H) 11.5 - 14.5 % Platelets 78 (L) 150 - 450 x10*3/uL Neutrophils % 35.3 40.0 - 80.0 % Immature Granulocytes %, Automated 0.7 0.0 - 0.9 % Lymphocytes % 54.2 13.0 - 44.0 % Monocytes % 5.6 2.0 - 10.0 % Eosinophils % 3.5 0.0 - 6.0 % Basophils % 0.7 0.0 - 2.0 % Neutrophils Absolute 0.51 (L) 1.60 - 5.50 x10*3/uL Immature Granulocytes Absolute, Automated 0.01 0.00 - 0.50 x10*3/uL Lymphocytes Absolute 0.78 (L) 0.80 - 3.00 x10*3/uL Monocytes Absolute 0.08 0.05 - 0.80 x10*3/uL Eosinophils Absolute 0.05 0.00 - 0.40 x10*3/uL Basophils Absolute 0.01 0.00 - 0.10 x10*3/uL Morphology Collection Time: 03/21/24 7:33 AM Result Value Ref Range RBC Morphology See Below Polychromasia Mild Hypochromia Mild RBC Fragments Few Ovalocytes Many [place] Cells Few Basophilic Stippling Present Recent Imaging OCT MACULA CIRRUS OU (BOTH EYES) Result Date: 03/15/2024 Date of Procedure 03/15/2024. Enrollment Services Vice President Information Carbon Furnace Operator Helper: [email or web address]. Interpretation Right Eye Normal without fluid. Left Eye Abnormal foveal contour. Findings include Lamellar hole. Interval Change Right Eye Stable. Left Eye Stable. Pathology Low-grade myelodysplasia Performance Status: Symptomatic; fully ambulatory Assessment/Plan 1. Pancytopenia. The patient has unusual bone marrow findings. Chromosomal analysis will not be done due to failure of the specimen to grow. 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 He also has components of myelodysplasia. He is not responding to erythropoietin. We willincrease his dose to 500 mcg every other week. He continues to be at high risk for bleeding and infection with a low ANC and low platelet count. He has had previous GI bleeds. He is currently back onhis aspirin per follow-up with Dr. Judge for fear of clotting off his stents. He is off Eliquis. . 2. Multiple comorbidities. 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 He knows that he should call in the interim should he have any change in his status, questions or concerns. Yisel Prado MD * Natalya Arvizu RN - 03/25/2024 12:30 PM EDT Patient will return in 2 weeks for labs/OV/injection. Dr Prado is going to possibly increase his Aranesp dose for next injection. Pt will return 6/7 @ 1230 for stat labs, OV, injection. RN discussed plan of care with patient and he verbalized understanding. He will call with any needs. [facility] Work Phone: 1([phone]) 951-503705-24-2024 Instructions* Patient Instructions* Yisel Prado MD - 03/25/2024 12:30 PM EDT Reviewed labs and recent medical history. Discussed his low red blood cell counts but reviewed with him that they have been stable. He will let us know if he has symptoms or changes. Discussed the results of his cytogenetics from his biopsy and noted that it did not give any more information related to his Myelodysplastic Syndrome. Reviewed the plan to continue on his Aranesp every 2 weeks until end of June. Return to see MD in 2 weeks with his next injection. [facility] Work Phone: [phone] 259-880505-24-2024 History of Present illness Narrative* Antione Harp DO - 03/25/2024 10:00 AM EDT Subjective Patient ID: Jewel Chaves is a 88 y.o. male who presents for No chief complaint on file.. HPI Patient was seen today in the office on a follow-up visit versus 1 month ago. Reviewing the patient's x-ray reports shows no change in scans of the chest from 01/22/2024 versus 02/05/2024 which was ordered by radiology. Patient reports that he now has a POC device and that seems to work well for him. It is on the heavy side but I explained to him that it is because of the battery pack. He however relates to me that he went to an event the other day that required him to walk distance and he did well with that. Review of Systems There is been no change in his review of systems. Objective Physical Exam On physical exam of the lungs there is some decreased breath sounds noted in the bases but no inspiratory crackles that were appreciated with his last visit. Cardio, heart sounds are of regular rate and rhythm. Extremities, no pretibial edema cyanosis or clubbing. Patient is able to ambulate without assistance in the office and did not appear dyspneic with that activity. Extremities, no pretibial edema, cyanosis or clubbing. Assessment/Plan Impressions: 1. 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 2. Symptoms are improved on physical exam and by patient history 3. Hypoxemia corrected with his POC device. Recommendations: 1. Will plan on doing a CT scan of the chest without contrast in early July and follow-up withthe patient after that has been done and interpreted. 2. Instructed the patient to contact our office if there is a change in his breathing between now and his visit. This note was transcribed using the [employer] Dictation system. There may be grammatical, punctuation,or verbiage errors that occur with voice recognition programs. Antione Harp DO 03/25/24 10:54 AM documented in this [facility] Work Phone: [phone] 842-167305-15-2024 History of Present illness Narrative* Robert Mortensen Jr., DPM - 03/16/2024 11:26 AM EDT Nail care Patient is a pleasant 88-year-old gentleman who comes in today for at risk nail care. His diabetes is managed by primary including Jae Gannon, A1c unknown. Thinks it is 7% though but he is justnot sure. Physical Vascular: DP pulses are palpable 2 out of 4 bilaterally. PT pulses are nonpalpable bilaterally. CFTis delayed with mild foot and ankle edema pitting in nature +1. Hair growth is absent bilaterally. Skin is shiny atrophic dysvascular. Nails 24811 left foot and 54263 right foot are markedly elongated thickened mycotic crumbling and dystrophic. Neuro: Sharp dull is blunted Babinski's is blunted. Musculoskeletal: Muscle strength is 5/5 with fair tone. Can easily wiggle toes without any clickingor catching. Derm: Mild hyperkeratosis plantar medial heel right and left no flaking or loss no deep nodules. Assessment and plan: Patient is a pleasant diabetic male with age and diabetic induced peripheral arterial disease and onychomycosis to 10 nails. -He does qualify for nail care given his elevated risk with arterial disease. -Procedure: Sharply debrided and debulk in height and length 10 onychomycotic nails with a sharp pair of nail nippers consistent with a q8 modifier -Procedure: Sharply debrided in height and w\idth 2 callus lesions with a 15 blade. Follow-up in 3 months for foot nail care. documented in this [id number] NoteHNO ID: [id number] Author: HARVEY ADAMS MD Service: ? Author Type: Physician Type: Progress Notes Filed: 03/15/2024 14:25 Note Text: ASSESSMENT/PLAN: 1. Lamellar macular hole of left eye - ICD9: 362.54, ICD10: H35.342 (primary diagnosis) -stable/ monitor 2. 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 3. Dry eyes, bilateral - ICD9: 375.15, ICD10: H04.123 -Systane Complete Artificial Tears - Use 1 Drop into both eyes three times a day. 4. Pseudophakia of both eyes - ICD9: V43.1, ICD10: Z96.1 -Intraocular lens in good position Both eyes 5. Essential hypertension - ICD9: 401.9, ICD10: I10 6. Sleep apnea, unspecified type - ICD9: 780.57, ICD10: G47.30 -continue to monitor with primary care physician I have confirmed and edited as necessary the relevant HPI, ophthalmic history, ROS, and the neuro exam findings as obtained by others. I have seen and examined Jewel Chaves. I have discussed the case and the management of this patient's care with the Resident/Fellow, if applicable. I also have reviewed and agree with the assessment and plan as stated above and agree with all of its relevant components.[facility]05-14-2024 NoteDate of Procedure 03/15/2024. Enrollment Services Vice President Information Carbon Furnace Operator Helper: ba. Interpretation Right Eye Normal without fluid. Left Eye Abnormal foveal contour. Findings include Lamellar hole. Interval Change Right Eye Stable. Left Eye Stable.[id number] History of Present illness Narrative* Harvey Adams MD - 03/15/2024 2:18 PM EDT ASSESSMENT/PLAN: 1. Lamellar macular hole of left eye - ICD9: 362.54, ICD10: H35.342 (primary diagnosis) -stable/ monitor 2. 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 3. Dry eyes, bilateral - ICD9: 375.15, ICD10: H04.123 -Systane Complete Artificial Tears - Use 1 Drop into both eyes three times a day. 4. Pseudophakia of both eyes - ICD9: V43.1, ICD10: Z96.1 -Intraocular lens in good position Both eyes 5. Essential hypertension - ICD9: 401.9, ICD10: I10 6. Sleep apnea, unspecified type - ICD9: 780.57, ICD10: G47.30 -continue to monitor with primary care physician I have confirmed and edited as necessary the relevant HPI, ophthalmic history, ROS, and the neuro exam findings as obtained by others. I have seen and examined Jewel Chaves. I have discussed the case and the management of this patient's care with the Resident/Fellow, if applicable. I also have reviewed and agree with the assessment and plan as stated above and agree withall of its relevant components. [facility] Instructions* Patient Instructions* Harvey Adams MD - 03/15/2024 2:18 PM EDT Begin: Naphcon-A drops- 1 drop three times a day both eyes - for excesive tearing. If you have any questions please contact our office at [phone]. After office hours or on the weekend, please call Dr. Adams on his cell phone at [phone]. [facility] History of Present illness Narrative* Vianney Judge MD - 03/14/2024 9:40 AM EDT General Cardiology Returning Patient Clinic Visit [facility] 03/14/2024 Vianney Judge MD [address] [place] [id number] [facility], physician's office 03/14/2024 Patient: Jewel Chaves Date of : 1935 (88 y.o.) Referring Provider: Vianney Judge MD PCP: Palmira العراقي MD Chief Complaint: Follow-up (SOBOE, leg swelling, lightheaded/dizzy) Date of Service: 03/14/2024 History of Present Illness: Jewel Chaves is a 88 y.o. man with a past medical history of coronary artery disease (s/p multiple stenting), hypertension, dyslipidemia who presents today for follow-up. I met him initially last year for his first visit. We made some medication adjustments including cessation of Eliquis (hx of PE related to covid 19). In the meantime he has had issues with multiple blood line dyscrasias including anemia, thrombocytopenia, and leukopenia. At some point his aspirin was stopped however given his history of stents this was restarted and he tolerates well. Blood pressures are well-controlled, blood sugars are anywhere from 150-250. Does not snack after dinner. Reportedly is supposed to be using oxygen with exertion, which she does but he is unsure what dose he is supposed to be on Review of Systems: All systems were reviewed and noted to be negative unless otherwise stated in HPI. Past Medical History: Diagnosis Date Acid reflux Acute pancreatitis Angina pectoris (HCC) Ankle sprain Arthritis Artificial joint pain (HCC) BPH with obstruction/lower urinary tract symptoms CAD (coronary artery disease) Capsulitis Cataract COVID-19 Dumping syndrome Edema pancreatic Edema of foot Foot cramps Gallstone Heart attack (HCC) 04/26/2009 Hyperlipidemia Hypertension Liver disease Loss of weight Lower extremity edema 1+ Nocturia Obesity OM (onychomycosis) PAOD (peripheral arterial occlusive disease) (HCC) Pulmonary embolism (HCC) Sleep apnea Swollen feet Synovitis and tenosynovitis TP (tinea pedis) Umbilical hernia Varicose vein of leg Varicosities venous Past Surgical History: Procedure Laterality Date CARDIAC CATHETERIZATION 05/03/2009 NO EF ASSESSED CHOLECYSTECTOMY CORONARY ANGIOPLASTY WITH STENT PLACEMENT 05/03/2009 KERMIT of RCA, KERMIT RIGHT PDA, CORONARY ANGIOPLASTY WITH STENT PLACEMENT 05/01/[address] BIOPSY BONE MARROW CORE ONLY 09/22/2022 CT BIOPSY BONE MARROW CORE ONLY 09/22/2022 CT COLONOSCOPY 11/14/2022 CT COLONOSCOPY HERNIA REPAIR 1988 Inguinal Family History Problem Relation Age of Onset Cancer Mother Liver disease Father Lung cancer Brother Social History Tobacco Use Smoking Status Never Smokeless Tobacco Never Allergies: Metformin All of the above information has been reviewed at today's visit and modified if necessary. Home Medications: Current Outpatient Medications: allopurinoL (ZYLOPRIM) 100 MG tablet, Take 1 (one) tablet (100 mg total) by mouth daily ., Disp: , Rfl: ascorbic acid, vitamin C, 250 mg Chew, Chew and Swallow 1 (one) tablet (250 mg total) ., Disp: , Rfl: aspirin 81 MG EC tablet, Take 1 (one) tablet (81 mg total) by mouth daily ., Disp: , Rfl: atorvastatin (Lipitor) 20 MG tablet, Take 2 (two) tablets (40 mg total) by mouth daily ., Disp: 180tablet, Rfl: 3 cyanocobalamin, vitamin B-12, (VITAMIN B12 ORAL), Take 1 tablet by mouth daily ., Disp: , Rfl: furosemide (LASIX) 40 MG tablet, Take 1 (one) tablet (40 mg total) by mouth 2 (two) times a day ., Disp: , Rfl: 3 gabapentin (NEURONTIN) 300 MG capsule, Take 1 (one) capsule (300 mg total) by mouth 2 (two) times aday ., Disp: , Rfl: glimepiride (AMARYL) 1 MG tablet, Take 1 (one) tablet (1 mg total) by mouth every morning before breakfast ., Disp: , Rfl: glucosamine/msm/chondroit/C/Mn (FLEXI JOINT ORAL), Take by mouth ., Disp: , Rfl: lactulose (CHRONULAC) 10 gram/15 mL solution, Take 30 mL (20 g total) by mouth 3 (three) times a day ., Disp: , Rfl: Lantus Solostar U-100 Insulin 100 unit/mL (3 mL) InPn, Inject 40 Units under the skin once daily atbedtime., Disp: , Rfl: magnesium L-lactate (MAGTAB) 84 mg TbER, Take 1 (one) tablet (84 mg total) by mouth daily ., Disp: , Rfl: metoprolol succinate (TOPROL XL) 100 MG 24 hr tablet, Take 1 (one) tablet (100 mg total) by mouth daily . (Patient taking differently: Take 1 (one) tablet (100 mg total) by mouth nightly .), Disp: 90tablet, Rfl: 3 multivitamin with minerals tablet, Take 1 (one) tablet by mouth daily ., Disp: , Rfl: nitroGLYCERIN (NITROSTAT) 0.4 MG SL tablet, Place 1 (one) tablet (0.4 mg total) under the tongue every 5 (five) minutes as needed for chest pain ., Disp: 25 tablet, Rfl: 3 pantoprazole (PROTONIX) 40 MG tablet, Take 1 (one) tablet (40 mg total) by mouth daily ., Disp: , Rfl: peg 400-propylene glycol 0.4-0.3 % Drop, Apply 1 (one) drop to eye ., Disp: , Rfl: primidone (MYSOLINE) 50 MG tablet, 1 (one) tablet (50 mg total) every night at bedtime ., Disp: , Rfl: propylene glycol (SYSTANE BALANCE OPHT), Apply to eye ., Disp: , Rfl: spironolactone (ALDACTONE) 25 MG tablet, TAKE 1 TABLET BY MOUTH EVERY DAY -HOLD IF SERUM POTASSIUM IS MORE THAN 5.0, Disp: , Rfl: sucralfate (CARAFATE) 1 gram tablet, Take 1 (one) tablet (1 g total) by mouth 3 (three) times a day., Disp: , Rfl: amLODIPine (NORVASC) 10 MG tablet, Take 1 (one) tablet (10 mg total) by mouth every morning ., Disp: , Rfl: apixaban (ELIQUIS) 5 mg Tab, Take 1 (one) tablet (5 mg total) by mouth 2 (two) times a day . (Patient not taking: Reported on 03/14/2024 .), Disp: 60 tablet, Rfl: 11 cholecalciferol, vitamin D3, (VITAMIN D3 ORAL), Take 1 tablet by mouth daily ., Disp: , Rfl: colesevelam (WELCHOL) 625 mg tablet, Take 3 (three) tablets (1,875 mg total) by mouth daily ., Disp: , Rfl: famotidine (PEPCID) 20 MG tablet, Take 1 (one) tablet (20 mg total) by mouth 2 (two) times a day .,Disp: , Rfl: ferrous sulfate (IRON ORAL), Take by mouth ., Disp: , Rfl: ferrous sulfate 134 mg (27 mg iron) Tab, Take 27 mg by mouth daily ., Disp: , Rfl: nizatidine (AXID) 150 MG capsule, Take 1 (one) capsule (150 mg total) by mouth 2 (two) times a day ., Disp: , Rfl: predniSONE (DELTASONE) 50 MG tablet, Take 1 (one) tablet (50 mg total) by mouth daily ., Disp: , Rfl: propranoloL (INDERAL) 20 MG tablet, Take 1 (one) tablet (20 mg total) by mouth 2 (two) times a day . (Patient not taking: Reported on 03/14/2024 .), Disp: 60 tablet, Rfl: 11 Physical Exam: BP 131/67 (BP Location: Right arm, Patient Position: Sitting, BP Cuff Size: Adult) Pulse 69 Ht 5' 8 Wt 104.6 kg (230 lb 11.2 oz) SpO2 93% BMI 35.08 kg/m Constitutional: Chronically ill, frail elderly gentleman, no acute distress Head: Normocephalic and atraumatic. Eyes: Conjunctivae are pale, no scleral icterus, no corneal arcus Neck: No acanthosis nigricans, no elevated jugular venous distension, no hepatojugular reflux Cardiovascular: Regular rate and rhythm, 2/6 holosystolic murmur noted, normal S1 and S2, no rubs or gallops, PMI is midline Pulses: +2 dorsalis pedis pulses bilaterally Musculoskeletal: Normal range of motion. No cyanosis. +2 pitting bilateral lower extremity edema Neurological: AOx3, moving all extremities normally Skin: Skin is warm and dry, normal hair pattern Psychiatric: Normal mood and affect, appropriate conversation Cardiovascular Studies: No recent cardiovascular studies Labs: Lipids July 2023 total cholesterol 100, HDL 32, LDL 34, triglycerides 171 Assessment and Plan: 1. Coronary artery disease, unspecified vessel or lesion type, unspecified whether angina present, unspecified whether [place] or transplanted heart Stable status post remote multivessel PCI Doing very well with modest intensity statin Continue aspirin 81 mg. Typically would not stop this medication unless platelets were less than 50,000 with complications of bleeding. Very important to continue aspirin given 15% chance risk of in-stent thrombosis with aspirin cessation 2. Primary hypertension Blood pressures are well controlled, no changes 3. Dyslipidemia lipids were drawn at his primary care physician visit, much appreciated, all within normal limits 4. Lower extremity edema Bilateral, likely secondary to sodium indiscretion Double furosemide to 80 mg twice daily, double spironolactone to 25 mg twice daily until symptoms improve Asked patient to be mindful of sodium Consider echocardiogram (concern for possible worsening pulm htn) Follow-up: Return in about 9 months (around 12/15/2024). Vianney Judge MD, [facility] Non-Invasive Cardiology [facility] P:[phone] F:[phone] documented in this [id number] Instructions* Patient Instructions* Vianney Judge MD - 03/14/2024 9:28 AM EDT How to Contact your Care Team: Provider: Dr. Vianney Judge MD Clinic Nurse: Ileana Chong RN REFILLS: When in need for refills please call your care team or the office at [phone]. Please include medication name, pharmacy name, and specify 30-day or 90-day supply. Please check with your pharmacy within 24 hours of request for your refill. You must follow up as directed to continue current refills. Thank you! Patient Instructions So great to see you today! Please do not hesitate to call me if you have any questions! Here are the things we talked about... Increase your furosemide to 80 mg twice daily and increase spironolactone to 25 mg twice daily until your legs are not swollen, 3 to 5 days, then can resume 40 mg twice daily and 25 mg daily If you do go out to eat or have something salty like pizza, and you noticed that your legs are swollen, feel free to increase your furosemide and spironolactone as above Do your very best to keep an eye on how much sugar you are eating ;) And try doing some exercises with soup cans while you are watching TV documented in this [id number] History of Present illness Narrative* Yisel Prado MD - 03/11/2024 9:00 AM EDT Patient ID:Jewel Chaves is a 88 y.o. 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 History of the Present Illness 08/10/2019. Visit with Dr. Jose J Martin for chronic kidney disease and hypertension. Chief complaint was fatigue and need to lose weight 09/13/2019. The patient has had long-term history of microcytic anemia going back to at least 2018 at which time his white count was 5.2 hemoglobin was 13.8 hematocrit 40.5 and a platelet count of 157,000. His MCV was 105 MCHC was 34. White blood cell differential count showed 66% polys, 17 lymphs,11 monos and 4 eosinophils. 10/12/2019. Seen by primary care for probable shingles treated with Valtrex with chief complaint ofwaxing and waning left flank pain radiating up under his ribs, somewhat responsive to exercise.. Hehad a history of pulmonary embolus and was on Eliquis long-term. 12/26/2019. Seen by Dr. Rick for elevated PSA, BPH and erectile dysfunction. PSA in 2017 was 2.94, in 2017 it was 2.74 and in 2019 it was 4.03. We discussed biopsy and the patient wanted to have this followed and not biopsy. 01/09/2020. Follow-up with Jae Gannon APRN primary care. Referred to Dr. Chopra for colonoscopy and CT scan of the chest was ordered for follow-up of questionable lingular nodule. 01/11/2020. CT scan of the chest showed a stable 6 mm nodular lesion near the fissure in the lingula. 01/13/2020. Seen by Dr. Chopra who noted that the patient had had diarrhea off-and-on since cholecystectomy and had intermittent left-sided pain. He had a history of colon polyps. 02/21/2015. 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 Seen by Dr. Nancy Rios in follow-up. She noted that he had an abnormal CBC with macrocytic indices with a normal B12 level. The patient denies alcohol use. Hemoglobin A1c was 6.2. BUN was 33 creatinine was 1.74. 07/02/2020. Follow-up with Dr. Rick. PSA had come down from 4.03-3.77 11/05/2020 through 11/13/2020. Admitted to the hospital having been brought to the ED by squad after he fell forward on his toilet and was unable to get up. He denied hitting his head or losing consciousness. He blamed it on having back pain and shoulder pain for several weeks. He was febrile with a temperature of 100.9 and hypoxic with pulse ox of 86% on room air. Respirations were 24. He was positive for COVID and was treated with intravenous antibiotics and remdesivir, increased supplemental oxygen. He was able to be discharged to rehabilitation. Repeat CBC showed white count 4.3 with a hemoglobin 12.9 hematocrit 38.8 with an MCV of 102 and a platelet count of 173,000. White blood cell differential count showed minimal absolute lymphocytopenia at 0.6 with the lower limits of normal being 0.8. 12/31/2020. Follow-up with Dr. Rick. PSA was 9.9 in December. Decided to have prostate biopsy done on01/21/2021. Results showed BPH. 08/07/2021. Follow-up with Dr. Rick. PSA in July was 2.77 02/05/2022. CBC showed white count 4.3 with hemoglobin 11.7 hematocrit 34.4 with an MCV of 107. Platelet count was 153,000. White blood cell differential count was essentially normal. 04/01/2022. CBC showed white count 3.6 with hemoglobin 11.6 hematocrit 34.4 and platelet count 117,000 with a normal white blood cell differential. 04/28/2022. Referred to Dr. Parra because of pancytopenia by Emma Hawkins APRN. CBC showed a white count of 3.9 with hemoglobin 12.3 hematocrit 36.1 and platelet count 129,000 with a normal differential. PSA was 3.26. The patient said that he felt well except for having increased fatigue. He continued on long-term anticoagulation. He was able to carry out his ADLs. He did complain of easy bruising. 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 Dr. Parra felt that there was a large component secondary to his chronic kidney disease. There was no evidence of nutritional deficiency. He checked him for hemolysis and monoclonal gammopathy and ordered an ultrasound for hepatosplenomegaly and testing for hepatitis, HIV and MAURIZIO. He said he would rather observe the patient rather than pursuing a bone marrow biopsy. 05/28/2022. Repeat lab data showed white count 3.9 with hemoglobin 12.3 hematocrit 36.1 and plateletcount 129,000. BUN was 36 creatinine was 1.78. He had mild elevation of AST. Retake count was 2.3%.Flow cytometry showed a small clonal B-cell population. Hepatitis B was nonreactive. Hep C testing was negative. Serum protein electrophoresis was normal. Haptoglobin was normal. LDH was normal. He said that the possibility of MDS could not be ruled out. Ultrasound showed fatty liver but no splenomegaly. He plan for EPO level and NGS for myeloid mutation. 07/03/2022. 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 2022. Seen by Dr. Dr. العراقي. Patient was referred to dermatology for several skin lesions. He was referred to neurology because of his tremor that was not improving. She increased his glimepiride. 08/18/2022. CBC showed white count 3.0 with hemoglobin 10.5 hematocrit 31.3 and a platelet count of106,000 MCV was 111. 08/27/2022. Follow-up with Dr. 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 He was suspicious for MDS. He referred him for a bone marrow biopsy. 10/02/2022. Follow-up with Dr. Parra. Bone marrow biopsy showed low-grade MDS. R IPSS score was low or very low depending on a karyotype which was still pending. We discussed initiating erythropoietinwith Aranesp but the patient deferred and the decision was made to monitor him. 11/12/2022. CBC showed white count 3.4 with hemoglobin 10.3 hematocrit 32.2 and a platelet count of 137,000. MCV was 115. White blood cell differential count was normal. 11/14/2022. Follow-up with Dr. Parra. The patient did say that he had following getting out of the shower but did not sustain any injuries. He had been started by Dr. Martin on insulin for his diabeteswhich was helpful. Patient continued to be active inside his house. He remains on Eliquis. BR-IPSS score is very low. Counts remain stable. 01/30/2023. CBC showed a white count of 2.6 with hemoglobin 8.7 hematocrit 27.1 and a platelet count97,000. MCV was 115. White blood cell differential count showed that he had an absolute neutrophil count of 1.36. 02/09/2023. CBC showed a white count of 2.5 with a hemoglobin 9.0 hematocrit of 27.7 with a plateletcount of 92,000. MCV was 114. 02/16/2023. Follow-up with Elaine Betts APRN. Even though his hemoglobin had dropped to 9 the patient did not want to start his erythropoietin injections. 03/12/2023. CBC showed white count of 2.5 with a hemoglobin of 7.6 hematocrit 23.8 and a platelet count of 101,000. Absolute neutrophil count was 1.17. 03/16/2023 through 03/20/2023. Admitted to the hospital with anemia and generalized weakness black stools dizziness with a hemoglobin of 6.7. His BUN was [address] scan of the abdomen showed no acute process. There were findings consistent with atypical healing of the previous rib fra cture with question Paget's disease although it was nonspecific. He was transfused 2 units packed red blood cells. EGD found 3 erosions in the cardia. He was prescribed Carafate. 03/25/2023. Follow-up with Dr. Dr. العراقي after discharge. CBC showed white count 1.9 with hemoglobin 8.6 hematocrit 28.3 and a platelet count of 140,000. Absolute neutrophil count was 1.06. Patient did not tolerate Carafate and stopped it. He was prescribed oral iron twice a day. He had not beenprescribed a PPI which was then started. 04/02/2023. CBC showed white count of 1.9 with hemoglobin 7.7 hematocrit 24.8 and a platelet count of87,000. 04/14/2023. CBC showed a white count of 1.9 with hemoglobin of 8.7 hematocrit 28.1 and platelet count of 89,000. 04/24/2023. Followed up with Dr. Dr. العراقي who reported that he was hospitalized again in [place] for GI bleed. At that time his Eliquis was discontinued and he was changed to Protonix and taken off his baby aspirin. Once again he was started on Carafate but did not tolerate it. 05/16/2023. CBC showed white count of 2.4 with hemoglobin 9.2 hematocrit 27.3 and a platelet count of 110,000. Absolute neutrophil count was 1.36. 05/18/2023. Follow-up with Elaine Betts. The patient had recently had a colonoscopy and had cauterizations he noted that he had dyspnea with exertion but no resting shortness of breath. He was on prednisone at that time. His sugars were in the 300s. He was on insulin. His neuropathy has not changedand he continues to have tremors. Current level was found to be saturated. Once again the patient was reluctant to start CHRISTIE. 06/15/2023. Follow-up with Elaine Betts. CBC showed white count 1.8 with a hemoglobin 8.9 hematocrit 26.9 and a platelet count of 100,000. Absolute neutrophil count was 0.96. 07/08/2023. CBC showed a white count of 1.8 with hemoglobin 9.5 hematocrit 28.8 and a platelet count of 85,000 with an absolute neutrophil count of 0.99. 07/15/2023. Follow-up with Dr. Rick. PSA has gone down to 1.87. 08/10/2023. Follow-up with Elaine Betts who noted the patient remained on oxygen and CPAP. He says that he is awakening in the middle of the night around 3 to 4:00 in the morning. Sugars have been in the 300s. Neuropathy was unchanged. He had been started on erythropoietin every 3 weeks 09/22/2023. Follow-up with Elaine Betts. No improvement in his hemoglobin. White count had improved to 2.1 platelets were baseline. He had been placed on 40 mg of prednisone and continued on erythropoietin 300 mcg every 3 weeks. 11/03/2023. Follow-up with Elaine Betts. No improvement in hemoglobin. Symptomatically he was doing well. Plan was to increase frequency of his darbepoetin to every 2 weeks. 12/15/2023. Follow-up with Elaine Betts. Now on erythropoietin injections every 2 weeks. There was a discussion concerning repeat bone marrow biopsy with counts stayed low. 01/12/2024. Follow-up with Elaine Betts. No improvement in his hemoglobin. Patient was agreeable to repeat bone marrow biopsy. She also ordered a CAT scan of the chest abdomen and pelvis without contrast. 01/22/2024. CAT scan showed severe coronary artery calcifications. There is evidence of bronchiectasis in the lower lobes increased compared to previous CT scan from 2019. Predominantly groundglass opacities with bibasilar prominence. There is some subpleural sparing of the left upper lobe. There is a 3 mm nodule in the right upper lobe which was unchanged for several years. 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 There is a small fat-containing periumbilical hernia and bilateral inguinal hernias. Spleen size is at the upper limitsof normal being 12.7 cm in length slightly increased when compared to study from 2019. Cysts were seen in the kidneys with diffuse cortical atrophy and a 4 mm hyperdense focus in the interpolar region of the right kidney possibly a stone. Prostatism was noted for gland measuring 6.2 cm. 01/28/2024. Seen by Dr. Harp for shortness of breath. He felt the patient had possible chronic interstitial lung disease versus periodic aspiration, hypoxia dyspnea on exertion. Further tests wereordered including high-resolution CT scan, complete pulmonary function testing, simple pulmonary stress test and follow-up. 02/09/2024. Follow-up with Elaine Betts. Erythropoietin injections continued every 2 weeks which the patient was tolerating well. 02/16/2024. Bone marrow biopsy was performed showing a hypercellular bone marrow at 50% with dyserythropoiesis. There are 1% blasts consistent with persistent myeloid neoplasm. Flow cytometry showed asmall clonal CD5 negative, CD10 negative B-cell population and a polytypic background. 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 There was a very small abnormal T-cell population that could be incidental. Next generation sequencing showed 2 U2AF 1 variants, 1 of which was negative. The other had been previously seen. The marrow also showed dyserythropoiesis with bilobate forms and forms with irregular nuclear contours as well as blebbing. 02/23/2024. CBC showed white count 1.5 with a hemoglobin of 8.3 hematocrit 25.9 and platelet count of 71,000 with 37% neutrophils, 53 lymphocytes, 4 monos, 4 eosinophils with an absolute neutrophil count of 0.57. 02/24/2024. Return visit with Dr. Harp. He noted that the high-resolution CT scan showed no significant change from the previous CT scan the month before. Pulmonary function testing showed no response to bronchodilator and there was mild restrictive change with some suggestion of airway inflammation. The patient had difficulty doing the test because of persistent coughing. 6-minute walk test showed that the patient was able to maintain saturations at 93% with 2 L of oxygen per minute continuously. The test was terminated because of dyspnea. With his hypoxia on room air it was recommended that he be on oxygen continuously to keep his saturation greater than or equal to 92%. He continued on oxygen with his CPAP at 3 L at nighttime. Interval Note 03/11/2024. This is my first visit with Mr. Chaves and his family. We went over some of the results of the bone marrow biopsy. I told him that I would have to wait until the chromosomal analysis returned. I also note the possibility of low-grade lymphoma. He may need to have an opinion with [facility]hematology at [facility]. Stepdaughter who is here with him and his today is his advocate for maintaining his quality of life. She is an employee at a local nursing facility and is concerned about many clients she has who seem to be getting treated aggressively. 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 He will continue on this treatment for now. Heis low counts were discussed and he knows that he is at higher risk for infection and bleeding. He continues on oxygen supplementation continuously. They will return in 2 weeks at which time laboratory tests will be performed. He just had a lesion removed from the dorsum of his right hand at the base of his first and second fingers. Stitches are still in place. It seems to be healing well without any significant bleeding or infection. He was told that it looked benign. Comorbidities GERD Arthritis, DJD BPH Coronary artery disease with history of myocardial, status post stent infarction History of dumping syndrome Hyperlipidemia History of skin cancer Obesity Obstructive sleep apnea on CPAP Peripheral arterial disease CKD 3 Diabetes with nephropathy History of cholecystectomy and hernia repair Essential tremor Hypertension Numbness in his fingers felt to be related to cervical disc disease. Monitoring Parameters Histories, physical examinations and CBCs with occasional bone marrow biopsies. Review of Systems - Oncology Review of Systems Constitutional: Positive for fatigue. Negative for appetite change and unexpected weight change. HENT: Negative for dental problem, mouth sores and trouble swallowing. Eyes: Negative for visual disturbance. Respiratory: Positive for shortness of breath. Negative for cough. Cardiovascular: Positive for leg swelling. Gastrointestinal: Negative for abdominal pain, constipation, diarrhea, nausea and vomiting. Endocrine: Negative for polyuria. Genitourinary: Negative for dysuria, frequency and urgency. Musculoskeletal: Positive for arthralgias (generalized) and myalgias. Skin: Positive for wound (healing stitches on his right hand). Negative for pallor and rash. Neurological: Positive for weakness. Negative for light-headedness, numbness and headaches. Hematological: Bruises/bleeds easily. Psychiatric/Behavioral: Negative for self-injury, sleep disturbance and suicidal ideas. The patientis not nervous/anxious. Past Medical History Past Medical History: Diagnosis Date Abnormal levels of other serum enzymes Abnormal liver enzymes Dependence on other enabling machines and devices CPAP (continuous positive airway pressure) dependence Encounter for examination of eyes and vision without abnormal findings Diabetic eye exam Localized edema Bilateral leg edema Old myocardial infarction History of myocardial infarction Other conditions influencing health status 11/09/2019 Uncontrolled diabetes mellitus type 2 without complications Pain in unspecified ankle and joints of unspecified foot Arthralgia of ankle Personal history of other diseases of the digestive system History of gastroesophageal reflux (GERD) Personal history of other diseases of the digestive system History of dumping syndrome Personal history of other endocrine, nutritional and metabolic disease 09/13/2020 History of type 2 diabetes mellitus Presence of coronary angioplasty implant and graft History of coronary artery stent placement Rash and other nonspecific skin eruption 10/12/2019 Rash Unspecified abdominal hernia without obstruction or gangrene Hernia Unspecified abdominal pain 03/20/2021 Abdominal pain, left lateral Surgical History Past Surgical History: Procedure Laterality Date OTHER SURGICAL HISTORY 08/10/2019 Arterial stent placement OTHER SURGICAL HISTORY 08/10/2019 Cholecystectomy OTHER SURGICAL HISTORY 08/10/2019 Hernia repair Social History Social History Tobacco Use Smoking status: Never Smokeless tobacco: Never Vaping Use Vaping status: Never Used Substance Use Topics Alcohol use: Never Drug use: Never Family History family history includes Colon cancer in his mother and another family member. Current Medications Current Outpatient Medications Medication Instructions allopurinol (ZYLOPRIM) 100 mg, oral, Daily amLODIPine (NORVASC) 5 mg, oral, Daily before breakfast ascorbic acid (VITAMIN C) 250 mg, oral aspirin 81 mg, oral, Daily atorvastatin (LIPITOR) 40 mg, oral, Daily blood-glucose sensor ([place] 3 Sensor) device Use as directed Constulose 10 gram/15 mL oral solution TAKE 45mL (30g) BY MOUTH TWICE DAILY FOR 30 DAYS cyanocobalamin, vitamin B-12, (Vitamin B-12) 1,000 mcg tablet extended release 1 tablet, oral ferrous sulfate 27 mg, oral, Daily furosemide (LASIX) 40 mg, oral, Daily gabapentin (NEURONTIN) 300 mg, oral, 2 times daily lancets 33 gauge misc miscellaneous, 2 times daily Lantus U-100 Insulin 50 Units, subcutaneous, Nightly Mag 64 64 mg EC tablet TAKE 1 TABLET BY MOUTH TWICE DAILY for 1 month metoprolol tartrate (LOPRESSOR) 50 mg, oral, 2 times daily multivit-minerals/folic acid (CENTRUM ADULTS ORAL) oral nitroglycerin (NITROSTAT) 0.4 mg, sublingual, Every 5 min PRN NON FORMULARY [place]ack test In vitro strip; Use as directed to check blood sugar 2 times daily pantoprazole (PROTONIX) 40 mg, oral, 2 times daily pen needle, diabetic (Pen Needle) 32 gauge x 5/32 needle 1 each, miscellaneous, Daily primidone (MYSOLINE) 50 mg, oral, Nightly spironolactone (ALDACTONE) 25 mg, oral, Daily sucralfate (CARAFATE) 1 g, oral, 3 times daily with meals OARRS Review I have personally reviewed the OARRS report for Jewel Chaves. I have considered the risks of abuse, dependence, addiction and diversion. Evaluation of this document shows that he is on gabapentin under the care of his primary care physician. Vital Signs BP 122/70 Pulse 68 Temp 36.5 C (97.7 F) Resp 20 Wt 105 kg (232 lb) SpO2 98% BMI 36.34 kg/m Physical Exam Vitals and nursing note reviewed. Exam conducted with a hold worker present. Constitutional: General: He is not in acute distress. Appearance: He is ill-appearing. He is not toxic-appearing. Comments: He is a well-developed well-nourished overweight elderly male who is accompanied by his and his stepdaughter. He is on oxygen continuously. He appears somewhat chronically ill and pale. HENT: Head: Normocephalic and atraumatic. Nose: Nose normal. Mouth/Throat: Mouth: Mucous membranes are moist. Pharynx: Oropharynx is clear. No oropharyngeal exudate or posterior oropharyngeal erythema. Eyes: General: No scleral icterus. Extraocular Movements: Extraocular movements intact. Conjunctiva/sclera: Conjunctivae normal. Pupils: Pupils are equal, round, and reactive to light. Neck: Comments: There is no gross adenopathy about the head neck region, supraclavicular or axillary areas bilaterally. Cardiovascular: Rate and Rhythm: Normal rate. Comments: Fairly regular rhythm. Pulmonary: Breath sounds: Rhonchi present. No wheezing or rales. Comments: Diminished in bases with occasional rhonchi. He is on chronic oxygen supplementation via nasal cannula. Abdominal: Palpations: There is no mass. Tenderness: There is no abdominal tenderness. There is no guarding. Comments: Large soft nontender abdomen with no gross organomegaly Musculoskeletal: General: Normal range of motion. Cervical back: Normal range of motion. No tenderness. Right lower leg: Edema present. Left lower leg: Edema present. Comments: Healing wound on the dorsum of his right hand with stitches in place. Recent dermatologicsurgery. Lymphadenopathy: Cervical: No cervical adenopathy. Skin: General: Skin is warm and dry. Coloration: Skin is pale. Skin is not jaundiced. Findings: Bruising present. Neurological: General: No focal deficit present. Mental Status: He is alert and oriented to person, place, and time. Mental status is at baseline. Motor: No weakness. Gait: Gait normal. Comments: Hard of hearing. Slow stable gait with assistance. Psychiatric: Mood and Affect: Mood normal. Behavior: Behavior normal. Thought Content: Thought content normal. Judgment: Judgment normal. Comments: He is a man of few words. Current Laboratory Data Recent Results (from the past 168 hour(s)) Comprehensive Metabolic Panel Collection Time: 03/11/24 8:52 AM Result Value Ref Range Glucose 294 (H) 74 - 99 mg/dL Sodium 135 (L) 136 - 145 mmol/L Potassium 4.8 3.5 - 5.3 mmol/L Chloride 102 98 - 107 mmol/L Bicarbonate 25 21 - 32 mmol/L Anion Gap 13 10 - 20 mmol/L Urea Nitrogen 47 (H) 6 - 23 mg/dL Creatinine 2.28 (H) 0.50 - 1.30 mg/dL eGFR 27 (L) >60 mL/min/1.73m*2 Calcium 8.8 8.6 - 10.3 mg/dL Albumin 4.0 3.4 - 5.0 g/dL Alkaline Phosphatase 88 33 - 136 U/L Total Protein 6.2 (L) 6.4 - 8.2 g/dL AST 28 9 - 39 U/L Bilirubin, Total 1.1 0.0 - 1.2 mg/dL ALT 20 10 - 52 U/L Recent Imaging IR biopsy bone marrow Result Date: 02/17/2024 Interpreted By: Margarita Tolbert, STUDY: IR BIOPSY BONE MARROW; 02/16/2024 12:13 pm INDICATION: Signs/Symptoms:Evaluation of MDS. COMPARISON: None. ACCESSION NUMBER(S): [id number] ORDERING CLINICIAN: ELAINE BETTS TECHNIQUE: INTERVENTIONALIST(S): Margarita Tolbert MD The history and physical exam pertinentto the procedure were reviewed and no updates were made. CONSENT: The patient/patient's POA/next of kin was informed of the nature of the proposed procedure. The purposes, alternatives, risks, and benefits were explained and discussed. All questions were answered and consent was obtained. RADIATION EXPOSURE: Fluoroscopy time: 0.2 min. Dose: 4.9 mGy. SEDATION: Moderate conscious IV sedation services (supervision of administration, induction, and maintenance) were provided by the physician performing the procedure with intravenous fentanyl 50 mcg and versed 1 mg for 30 minutes. The physician was assisted by an independent trained observer, an interventional radiology nurse, in the continuousmonitoring of patient level of consciousness and physiologic status. MEDICATION/CONTRAST: No additional. TIME OUT: A time out was performed immediately prior to procedure start with the interventional team, correctly identifying the patient name, date of , MRN, procedure, anatomy (including marking of site and side), patient position, procedure consent form, relevant laboratory and imaging test results, antibiotic administration, safety precautions, and procedure-specific equipment needs. COMPLICATIONS: No immediate adverse events identified. FINDINGS: Patient was placed prone on the fluo roscopy procedure table. The left posterior iliac crest was marked. Site prepped and draped in usual sterile fashion. 1% lidocaine for anesthesia to the level of the periosteum. Small skin lidia made.Then, a 11 gauge bone needle cannula was advanced into the posterior iliac crest using intermittentfluoroscopic guidance. Stylet removed. A 1 cc aspiration using a 30 cc syringe was performed. Then,2 marrow aspirations performed, 4 cc each, into syringes containing 500 units heparin and 0.5 cc volume. Then, an additional aspiration, 4 cc, was performed using a empty syringe. These were handed directly to the marrow technologist. Then, the cannula was driven 2 cm forward. Position was confirmed under fluoroscopic visualization. The pincer retriever stylet was advanced into the cannula. Then,the cannula was removed in its entirety. The sample was retrieved. This was handed directly to the marrow technologist on a Telfa gauze. The access site was then covered with sterile dressing. Patient tolerated procedure well without complication. 1. Technically successful left iliac marrow biopsy and aspiration. I was present for and/or performed the critical portions of the procedure and immediately available throughout the entire procedure.I personally reviewed the image(s) / study and resident interpretation. I agree with the findings as stated. Performed and dictated at [facility]. MACRO: None Signed by: Margarita Tolbert 02/17/2024 2:43 PM Dictation workstation: [id number] Pathology FINAL DIAGNOSIS A-C. BONE MARROW CLOT, CORE BIOPSY, ASPIRATE, LEFT ILIAC CREST: -- HYPERCELLULAR BONE MARROW (50%) WITH DYSERYTHROPOIESIS AND 1% BLASTS CONSISTENT WITH PERSISTENT MYELOID NEOPLASM. -- FEW SMALL INTERSTITIAL LYMPHOID AGGREGATES, SEE NOTE. NOTE: The core biopsy is limited due to marked hemorrhagic and fragmentation artifacts. There is noincrease in blasts. By flow cytometry, a small clonal CD5- negative, [id number] B-cell populationin a polytypic background was identified. 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 Clinical correlation and correlation with pending molecular studies is recommended. at 1902 Comment Bone Marrow Differential Cell Type Value Reference Range Promyelocytes 0.5 1-5 % Myelocytes 5.0 5-10 % Metamyelocytes 9.5 10-25 % Bands 3.0 10-20 % Segmented Neutrophils 8.0 5-30 % Eosinophils 2.5 2-4 % Basophils 0.5 0-1 % Lymphocytes 4.0 5-25 % Monocytes 0.5 0-2 % Plasma Cells 3.0 0-2 % Blasts 2.0 0-1 % Total Erythroid 61.5 17-35 % Total Cells Counted 200 Myeloid/Erythroid Ratio 0.5 1.5-4.1 Microscopic Description PERIPHERAL SMEAR: Submitted Red cells: Macrocytic anemia with anisopoikilocytosis, polychromasia and few red blood cells with coarse basophilic stippling. White cells: Leukopenia with neutropenia. Platelets: Decreased. ASPIRATE SMEAR: Submitted Specimen: Spicular. Erythropoiesis: Dyserythropoiesis with bilobate forms, forms with irregular nuclear contours, as well as blebbing. Granulopoiesis: Decreased. Megakaryocytes: Present. Morphology: Predominantly normal morphology. TOUCH PREP: Submitted Specimen: Cellular. Comments: Similar to aspirate smear. ASPIRATE CLOT: Submitted Specimen: Spicular. Cellularity: 50% Estimated M:E ratio: Consistent with aspirate smear. Megakaryocytes: Adequate in number. Morphology: Some megakaryocytes are small and hypolobate. Granulomas: Absent. Lymphoid aggregates: Absent. Comments: Similar to core biopsy. CORE BIOPSY: Submitted Specimen: Limited due to marked hemorrhagic and fragmentation artifacts. Cellularity: Not evaluable. Estimated M:E ratio: Not evaluable. Bony trabeculae: Normal. Megakaryocytes: Present. Morphology: Appears normal. Granulomas: Absent. Lymphoid aggregates: Minute aggregate of small lymphoid cells. Comments: SPECIAL STAINS: Iron: Storage iron adequate; ring sideroblasts present. IMMUNOHISTOCHEMISTRY: -- Block A1: CD34: highlights scattered blasts, approximately 1% CD117: highlights scattered mast cells and early erythroid progenitors. E-cadherin: highlights and increased number of early erythroid in erythroid islands. CD61:Highlights megakaryocytes, some megakaryocytes are small and hypolobate CD3: Highlights subset of lymphocytes in few small interstitial lymphoid aggregates. CD20: Highlights subset of lymphocytes in few small interstitial lymphoid aggregates. -- Block B1: CD3: Highlights subset of lymphocytes in few small interstitial lymphoid aggregates. CD20: Highlights minor subset of lymphocytes in few small interstitial lymphoid aggregates. Cyclin D1: Negative FLOW CYTOMETRY: Performed, see separate report. Immunostains were performed in addition to flow cytometry to fully characterize the phenotype, architecture, and extent of the marrow population(s). This was medically necessary for the best possiblediagnosis. BONE MARROW, FLOW CYTOMETRY: -- Small clonal B cell population in a polytypic background, see note 1. -- Small clonal T cell population in a polytypic background, see note 2. -- Mild immunophenotypic atypia of red cells. -- No increased or abnormal blast population. Notes: 1) The clonal B cells are negative for CD5 and CD10 with a nonspecific phenotype. The population detected is small and may be incidental representing a monoclonal B cell lymphocytosis (MBL) of non-CLL/SLL type. Low level blood involvement by a systemic lymphoma cannot be excluded. 2) The abnormal T cell population identified is very small and may be incidental. Small T-cell clonal expansions have been reported in a number of nonmalignant conditions including autoimmune disorders, viral infections, non-T lymphoid malignancies, immunodeficiency, immune reconstitution following hematopoietic stem cell transplantation, and immunosenescence. Correlate with separate bone marrow pathology report. at 1857 By the signature on this report, the individual or group listed as making the Final Interpretation/Diagnosis certifies that they have reviewed this case and the staining reactivity of the antibodies and reagents in the analysis were determined to be acceptable. Diagnostic interpretation performed at [facility] Cell Populations Abnormal Cell Population: Lymphocytes Percentage: 1.0 % Phenotype Marker Interpretation CD1c Negative CD2 Negative CD3 Negative CD4 Negative CD5 Negative CD7 Negative CD8 Negative CD9 Negative CD10 Negative CD11c Negative CD13 Negative CD14 Negative CD15 Negative CD16 Negative CD19 Positive moderate CD20 Positive moderate CD22 Positive moderate-bright CD23 Negative CD25 Negative CD33 Negative CD34 Negative CD38 Negative CD43 Negative CD45 Positive moderate CD56 Negative CD71 Negative CD79b Negative CD117 Negative CD163 Negative CD177 Negative CD180 Positive moderate CD304 Negative HLA-DR Positive moderate [place] Negative Lambda Positive dim Second Abnormal Cell Population: Lymphocytes Percentage: 1.6 % Phenotype Marker Interpretation CD3 Positive moderate CD4 Negative CD7 Positive moderate CD8 Positive dim-moderate TCR Gamma/Delta Negative TRBC1 Negative Flow Differential Lymphocyte: 19 % CD3+CD4+: 34 % ; Polyclonal (TRBC1) CD3+CD8+: 19 % ; Monoclonal population in a polytypic background; see description above. Natural Killer Cells: 28 % CD19+: 17 % B Cell Light Chain Expression: Monoclonal population in a polytypic background; see description above. Monocyte: 2 % No definitive immunophenotypic abnormality was detected. Granulocyte: 20 % No definitive immunophenotypic abnormality was detected. Blast: 1.2 % No definitive immunophenotypic abnormality was detected. Red Blood Cells: 32.4 % There is heterogeneous expression of CD36. DISEASE ASSOCIATED GENOMIC FINDINGS: U2AF1 p.Q157R ([id number]) U2AF1 p.S34F ([id number] c.[id number]) INTERPRETATION: U2AF1 p.Q157R VAF: 31% U2AF1 p.S34F VAF: 31% U2AF1 mutations may indicate clonal hematopoiesis when myelodysplastic syndrome (MDS) is suspected,but mutations should not be used as presumptive evidence of MDS when diagnostic criteria for MDS have not been met (NCCN 1.2021). U2AF1 mutations are associated with poor prognosis in MDS (NCCN 1.2021). Of note, the U2AF1 p.S34F mutation was seen previously in this patient (see [id number]; 08/18/22). The U2AF1 p.Q157R was not identified previously. Correlation with treatment history and morphologic evaluation is recommended. Performance Status: Symptomatic; fully ambulatory Assessment/Plan 1. Pancytopenia. The patient has unusual bone marrow findings. His cytogenetics is still pending. 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 He is not responding to erythropoietin. He is certainly at high risk for bleeding and infection with a low ANC and low platelet count. He has had previous GI bleeds. He is currently back on his Eliquis and aspirin as well. I think he did benefit from another opinion. We will discuss this with patient and family. 2. Multiple comorbidities. 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 We will have him return to the office in 2 weeks at which time we hope that his cytogenetics will be performed. We will discuss these issues at that time. He knows that he should call in the interim should he have any change in his status, questions or concerns. Yisel Prado MD * Maris Kim RN - 03/11/2024 9:00 AM EDT [facility] after appt today Rtc 03/25 930 MD- will draw labs at clinic on arrival 1000 injection Reviewed AVS with patient- patient verbalizes understanding [facility] Work Phone: [phone]) 795-676805-10-2024 Instructions* Patient Instructions* Yisel Prado MD - 03/11/2024 9:00 AM EDT Reviewed labs and recent medical history. Discussed the results of his recent bone marrow biopsy. Noted that we are still waiting for cytogenetics results. Reviewed options for treatment including erythropoietin. He will consider this option. Encouraged him to stay away from folks who have colds or infection. Return to see MD in 2 weeks with labs. Orders added. documented in [facility] Work Phone: [phone]) 702-166704-24-2024 History of Present illness Narrative* Antione Montez Harp, - 02/24/2024 9:20 AM EDT Subjective Patient ID: Jewel Chaves is a 88 y.o. male who presents for No chief complaint on file.. HPI Patient was seen today in patient had a high-resolution CT scan of his chest done on 02/05/2024 and the report indicates from radiology that there has been no significant change in the interstitial lung disease versus 01/22/2024. The study show primarily bibasilar interstitial lung disease with some superimposed groundglass opacities and no evidence of honeycombing, most consistent with NSIP. Patient reports that his breathing has remained good with his usual activities during the day. His pulmonary function studies showed spirometry with no significant response to bronchodilator and there was some mild restrictive disease based on lung volume. There is also suggestion of some airway inflammati on with a FeNO of 45. Patient had some difficulty doing the study because of persistent coughing. Patient currently uses oxygen on his CPAP device at 3 L/min but he does not have any portable oxygen such as a POC. He has only been given some small tanks that will last him for approximately an hour to 2. Patient had a 6-minute walk study done and showed that he was able to maintain saturations at 93% with 2 L/min of continuous oxygen at 450 feet before the test was terminated because of dyspnea. Review of Systems No changes other than what was noted above. Objective Physical Exam Pulmonary, inspiratory crackles in the lung bases in the upper lung eastman were generally clear. Cardio, heart sounds were regular rate and rhythm. Extremities, lower extremity pretibial edema left greater than right. Psych, the patient was alert and oriented x 3. The patient did not have dyspnea in the office today with walking on a level surface. Assessment/Plan Impressions: 1. 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 2. Hypoxemia with activity on room air. Recommendations: 1. Will contact his DME provider [facility] in [place] about arranging for a POC device that would maintain his oxygen saturations greater than or equal to 92%.. 2. Continue with his oxygen on his CPAP device at 3 L at nighttime. 3. The patient at this time is not interested in any additional therapy for his breathing. 4. Follow-up with the patient in 1 month. This note was transcribed using the [employer] Dictation system. There may be grammatical, punctuation,or verbiage errors that occur with voice recognition programs. Antione Harp DO 02/24/24 10:38 AM documented in this encounterCh[facility] Work Phone: 1([phone]) 219-200904-16-2024 Miscellaneous Notes* Pre-Procedure Note - Danette Tolbert MD - 02/16/2024 11:00 AM EDT Interventional Radiology Preprocedure Note Indication for procedure: Diagnoses of 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), Leukopenia, unspecified type, and Myelodysplastic syndrome, 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Multi) were pertinent to this visit. Relevant review of systems: NA Relevant Labs: Lab Results Component Value Date CREATININE 2.07 (H) 02/09/2024 EGFR 30 (L) 02/09/2024 INR 1.3 (H) 03/16/2023 PROTIME 14.7 (H) 03/16/2023 Planned Sedation/Anesthesia: Minimal Airway assessment: normal Directed physical examination: Aox3 No increased work of breathing. No acute distress Mallampati: II (hard and soft palate, upper portion of tonsils anduvula visible) ASA Score: ASA 2 - Patient with mild systemic disease with no functional limitations Benefits, risks and alternatives of procedure and planned sedation have been discussed with the patient and/or their shared services representative. All questions answered and they agree to proceed. documented in this [facility] Work Phone: 1([phone]) 108-250604-16-2024 Note* Pre-Procedure Note - Danette Tolbert MD - 02/16/2024 11:00 AM EDT Interventional Radiology Preprocedure Note Indication for procedure: Diagnoses of 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), Leukopenia, unspecified type, and Myelodysplastic syndrome, 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Multi) were pertinent to this visit. Relevant review of systems: NA Relevant Labs: Lab Results Component Value Date CREATININE 2.07 (H) 02/09/2024 EGFR 30 (L) 02/09/2024 INR 1.3 (H) 03/16/2023 PROTIME 14.7 (H) 03/16/2023 Planned Sedation/Anesthesia: Minimal Airway assessment: normal Directed physical examination: Aox3 No increased work of breathing. No acute distress Mallampati: II (hard and soft palate, upper portion of tonsils anduvula visible) ASA Score: ASA 2 - Patient with mild systemic disease with no functional limitations Benefits, risks and alternatives of procedure and planned sedation have been discussed with the patient and/or their shared services representative. All questions answered and they agree to proceed. [facility] Work Phone: [phone]) [phone] Procedure note* Danette Tolbert MD - 02/16/2024 11:00 AM EDT Interventional Radiology Brief Postprocedure Note Attending: Danette Tolbert MD Grant Administrator: Staff Role Sherita Koo MT Lipcoat Sprayer Maris Hou MT Lipcoat Sprayer Taylor Paz, accountant machine processing Nurse Rinku Mcneil, accountant machine processing Nurse Danette Tolbert MD Radiologist Diagnosis: 1. 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) IR biopsy bone marrow IR biopsy bone marrow 2. Leukopenia, unspecified type IR biopsy bone marrow IR biopsy bone marrow 3. Myelodysplastic syndrome, 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Multi) IR biopsy bone marrow IR biopsy bone marrow Description of procedure: Bone Marrow Evaluation IR biopsy bone marrow left ilium Timeout: Yes Procedure Area: Procedure Area Anesthesia: Conscious Sedation Complications: None Estimated Blood Loss: minimal Medications (Filter: Administrations occurring from 1129 to 1209 on 02/16/24) As of 02/16/24 1209 oxygen (O2) therapy Total dose: 0 * *Administration not included in total Date/Time Rate/Dose/Volume Action 02/16/24 Canceled Entry sodium chloride 0.9% infusion (mL/hr) Total volume: Not documented* *Total volume has not been documented. View each administration to see the amount administered. Date/Time Rate/Dose/Volume Action 02/16/24 1150 50 mL/hr New Bag fentaNYL PF (Sublimaze) injection (mcg) Total dose: 50 mcg Date/Time Rate/Dose/Volume Action 02/16/24 1200 50 mcg Given lidocaine PF (Xylocaine) 10 mg/mL (1 %) injection (mL) Total volume: 5 mL Date/Time Rate/Dose/Volume Action 02/16/24 1200 5 mL Given midazolam (Versed) injection (mg) Total dose: 1 mg Date/Time Rate/Dose/Volume Action 02/16/24 1200 1 mg Given See detailed result report with images in PACS. The patient tolerated the procedure well without incident or complication and is in stable condition. [facility] Work Phone: [phone]) [phone] Procedure note* Danette Tolbert MD - 02/16/2024 11:00 AM EDT Interventional Radiology Brief Postprocedure Note Attending: Danette Tolbert MD Grant Administrator: Staff Role Sherita Koo MT Lipcoat Sprayer Maris Hou MT Lipcoat Sprayer Taylor Paz, accountant machine processing Nurse Rinku Mcneil, accountant machine processing Nurse Danette Tolbert MD Radiologist Diagnosis: 1. 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) IR biopsy bone marrow IR biopsy bone marrow 2. Leukopenia, unspecified type IR biopsy bone marrow IR biopsy bone marrow 3. Myelodysplastic syndrome, 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Multi) IR biopsy bone marrow IR biopsy bone marrow Description of procedure: Bone Marrow Evaluation IR biopsy bone marrow left ilium Timeout: Yes Procedure Area: Procedure Area Anesthesia: Conscious Sedation Complications: None Estimated Blood Loss: minimal Medications (Filter: Administrations occurring from 1129 to 1209 on 02/16/24) As of 02/16/24 1209 oxygen (O2) therapy Total dose: 0 * *Administration not included in total Date/Time Rate/Dose/Volume Action 02/16/24 Canceled Entry sodium chloride 0.9% infusion (mL/hr) Total volume: Not documented* *Total volume has not been documented. View each administration to see the amount administered. Date/Time Rate/Dose/Volume Action 02/16/24 1150 50 mL/hr New Bag fentaNYL PF (Sublimaze) injection (mcg) Total dose: 50 mcg Date/Time Rate/Dose/Volume Action 02/16/24 1200 50 mcg Given lidocaine PF (Xylocaine) 10 mg/mL (1 %) injection (mL) Total volume: 5 mL Date/Time Rate/Dose/Volume Action 02/16/24 1200 5 mL Given midazolam (Versed) injection (mg) Total dose: 1 mg Date/Time Rate/Dose/Volume Action 02/16/24 1200 1 mg Given See detailed result report with images in PACS. The patient tolerated the procedure well without incident or complication and is in stable condition. documented in this [facility] Work Phone: 1(220) 772-733504-09-2024 History of Present illness Narrative* Elaine Betts APRN-PRECISION THREAD GRINDER OPERATOR - 02/09/2024 1:30 PM EDT Patient ID: Jewel Chaves is a 88 y.o. male. Subjective HPI HPI Patient ID: Jewel Chaves is a 88 y.o. male. Subjective HPI 86 yo man with hx of reflux gastritis, coronary artery disease/ OK on aspirin, DM, hypertension, obesity, sleep apnea, history of PE on Eliquis, chronic kidney disease stage III, DJD, admission Nov 2020 for COVID19 pneumonia, referred for pancytopenia. He has chronic anemia with hg of around 12 g/dl, MCV of 107, his recent cbc showed decreased wbc of 3.6K , ANC of 2.0, plts of 117 , labs in January2022 showed a ferritin of 154, Tsat of 42%, folic acid of 22.7, b12 of 601, his Cr is around 2.1 he feels well, he complains of fatigue he is on Eliquis, he has been on anticoagulation for a long time per patient he is able to didi put ADLs no SOB , no chest no bleeding, no hematochezia, no hematuria, no melena, no other bleeding he has DWAIN and is on CPAP, he is generally compliant but some nights get frustrated and does not use it eating well, no weight loss has easy bruising on bumping or hitting himself no new fever or infections he has morning hip pain and also his wrists interval history- 02/09/24 No recent falls No recent infections No fevers, chills Energy slightly improved Right hand papule on the his knuckles Eating and drinking well Weight is stable No episodes of dizziness Ambulating with no difficulty, Feels steady on feet Remains taking baby aspirin remains off eliquis, Juvano from [place] Blood sugars remains on insulin 50 units of Lantus in PM BS ranging from 200-251 Breathing is stable No chest pain or pressure remains on oxygen and CPAP, sleeping well all night long Occasional night sweating legs and around face, 4 times weekly Bowels are regular, denies any hematochezia or melena No longer taking iron supplement No urinary issues, no dysuria or hematuria 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 There were no vitals taken for this visit. Physical Exam Vitals and nursing note reviewed. Constitutional: Appearance: Normal appearance. HENT: Head: Normocephalic and atraumatic. Mouth/Throat: Pharynx: Oropharynx is clear. Eyes: General: No scleral icterus. Extraocular Movements: Extraocular movements intact. Conjunctiva/sclera: Conjunctivae normal. Cardiovascular: Rate and Rhythm: Normal rate and regular rhythm. Pulses: Normal pulses. Heart sounds: Normal heart sounds. Pulmonary: Effort: Pulmonary effort is normal. Breath sounds: Normal breath sounds. Abdominal: General: There is distension. Palpations: Abdomen is soft. Tenderness: There is no abdominal tenderness. Musculoskeletal: General: Normal range of motion. Cervical back: Normal range of motion. Right lower leg: Edema present. Left lower leg: Edema present. Skin: General: Skin is warm and dry. Coloration: Skin is pale. Findings: Bruising present. Neurological: General: No focal deficit present. Mental Status: He is alert and oriented to person, place, and time. Motor: Weakness present. Psychiatric: Mood and Affect: Mood normal. Behavior: Behavior normal. Thought Content: Thought content normal. Judgment: Judgment normal. Performance Status: Symptomatic; fully ambulatory Assessment/Plan 1. 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 plan to check remaining work up for anemia: -hemolysis labs: LDH, retic, haptoglobin -monoclonal gammopathy: SPEP, UPEP mild leukopenia and thrombocytopenia: -check US abd for hepatosplenomegaly -hepatitis and HIV -b12 and folic acid were normal -MAURIZIO send for smear review and flow for an abnormal cell population detection we discussed that if work up is negative an evolving myeloid neoplasm is possible nevertheless the counts are mildly low and would observe rather pursuing a bone marrow biopsy 05/28/22- his work up showed an small abnormal B cell population 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 but also there was a phenotypic abnormality of granulocyte and possibility of MDS can not be ruled out we discussed above however due to the counts being mildly low we discussed deferring marrow exam atthis time US showed fatty liver but no splenomegaly other work up negative will plan to check NGS for myeloid mutations with next labs and check an EPO level at this time will continue surveillance of cbc and check a repeat in 3 months 10/02/22 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 his RIPSS score is low or very low risk depending on the karyotype which is pending for his anemia we discussed initiating CHRISTIE with Aranesp but he prefers to defer now will monitor the hg and if it drops < 10 g/dl will initiate 11/14/22 his RIPSS score is very low at this time he is clinically stable, and the counts have remained stable his fatigue is also improved we will continue count monitor , consider CHRISTIE if hg drops 02/16/23 patient remains clinically stable, but his Hgb has dropped to 9 g/dl discussed initiating CHRISTIE, patient would like to defer at this time and reconsider if Hg remains below 10 d/gl fatigue remains unchanged, denies any abnormal bleeding or bruising, no overt bleeding will continue to monitor labs and plan to initiate CHRISTIE if Hgb remains below 10 g/dl 02/09/24 Patient reports his energy has slightly improved. Appetite is decent, weight is stable. Breathing is stable, YUAN with stairs and activity. Denies any abnormal bleeding, bruises extremely easy. Papuleon right knuckle, scheduled to see dermatology in a week. Denies any constitutional B symptoms. Patient remains anemic with a Hg of 8.0, MCV 105, MCHC 33.2. WBC are slightly lower at 1.2, ANC 0.75, Lymphocytes 0.65. Plts have trended down to 63k. Patient is currently receiving Darbepoetin 300mcg every 2 weeks, and tolerating well. Patients counts remain low, despite the change of frequency with the Darbepoetin. Proceed with treatment today. Discussed bone marrow biopsy with patient based on cytopenias. Patient would like to proceed with testing at this time. Order placed for CT Guided Bone Marrow Aspiration and Biopsy. Patient was unable to keep his original appt due to transportation, he is scheduled for next week. Plan: Scheduled pt for CT Guided Bone Marrow Biopsy Repeat lab CBC next week Continue treatment with Darbepoetin q 2 weeks with labs prior RTC 4 weeks , to discuss pathology results from bone marrow SOY Paulson * Maris Kim RN - 02/09/2024 1:30 PM EDT CBC redrawn- due to platelets clumping on slide Pt had injection today- hgb 8 Lab and Darbepoetin 02/22 5/7- 1230 stat lab 1pm PRECISION THREAD GRINDER OPERATOR visit- go over Bone marrow results 130 pm darbepoetin Reviewed AVS with patient- patient verbalizes understanding documented in this [facility] Work Phone: [phone]) [phone] Instructions* Patient Instructions* SOY Paulson - 02/09/2024 1:30 PM EDT Proceed with Darbepoetin 300 mcg q 2 weeks Proceed with Bone Marrow Biopsy Repeat CBC in 2 weeks for consideration of Darbepoetin Scheduled with MD to discuss Bone Marrow results documented [facility] Work Phone: 1(450) 590-905104-03-2024 Evaluation + Plan note* Assessment & Plan Note - SOY Easley DNP - 02/03/2024 10:19 AM EDTAssociated Problem(s): Anemia due to stage 3b chronic kidney disease (CMS/HCC) Receiving darbepoetin every 2 weeks, currently with hemoglobin of 8.4, to have bone marrow biopsy in the next week and a half, being followed by hematology [facility] Work Phone: 1([phone]) 637-768204-03-2024 Miscellaneous Notes* Assessment & Plan Note - SOY Easley DNP - 02/03/2024 10:19 AM EDTAssociated Problem(s): Anemia due to stage 3b chronic kidney disease (CMS/HCC) Receiving darbepoetin every 2 weeks, currently with hemoglobin of 8.4, to have bone marrow biopsy in the next week and a half, being followed by hematology * Assessment & Plan Note - SOY Easley DNP - 02/03/2024 10:16 AM EDT Associated Problem(s): Stage 4 chronic kidney disease (CMS/HCC) Creatinine is stable at 2.07 and is actually slightly improved from his last check, * Assessment & Plan Note - SOY Easley DNP - 02/03/2024 10:15 AM EDT Associated Problem(s): Type 2 diabetes mellitus with stage 4 chronic kidney disease, with long-termcurrent use of insulin (CMS/HCC) Continues to have some high blood sugars, currently is on insulin only, being followed by endocrinology * Assessment & Plan Note - SOY Easley DNP - 02/03/2024 10:12 AM EDT Associated Problem(s): Hypertension Blood pressure is currently well-controlled on amlodipine, metoprolol, furosemide, spironolactone documented in this [facility] Work Phone: 1(357) 532-820204-03-2024 Evaluation + Plan note* Assessment & Plan Note - SOY Easley DNP - 02/03/2024 10:16 AM EDTAssociated Problem(s): Stage 4 chronic kidney disease ([facility]) Creatinine is stable at 2.07 and is actually slightly improved from his last check, [facility] Work Phone: [phone]) 172-309004-03-2024 Evaluation + Plan note* Assessment & Plan Note - SOY Easley DNP - 02/03/2024 10:15 AM EDTAssociated Problem(s): Type 2 diabetes mellitus with stage 4 chronic kidney disease, with long-termcurrent use of insulin ([facility]) Continues to have some high blood sugars, currently is on insulin only, being followed by endocrinology [facility] Work Phone: [phone]) 113-566104-03-2024 Evaluation + Plan note* Assessment & Plan Note - SOY Easley DNP - 02/03/2024 10:12 AM EDTAssociated Problem(s): Hypertension Blood pressure is currently well-controlled on amlodipine, metoprolol, furosemide, spironolactone [facility] Work Phone: [phone]) 543-379804-03-2024 History of Present illness Narrative* SOY Easley DNP - 02/03/2024 10:00 AM EDT Subjective Patient ID: Jewel Chaves is a 88 y.o. male who presents for Follow-up (6 month ck/Review labs 01/21). Patient being seen in follow-up for chronic kidney disease stage III with history of hypertension and diabetes mellitus Labs reviewed CBC with H&H 8.4 and 25.7, platelets 90, is receiving darbepoetin every 2 weeks Total albumin creatinine ratio 165.0 Glucose 225 Sodium 135, potassium 4.6, chloride 101, bicarb 25 Renal function with a BUN of 33 and creatinine of 2.07 He is doing fairly well He continues to take a bus trips He does have follow-up with a vitreo retinal surgeon and has been started on new medication with him He also has a bone marrow biopsy coming up with hematology He continues to be anemic He is voiding without difficulties He does notice some bubbling in his urine His blood sugars in the morning are usually around 180, he does get as high as Review of Systems Constitutional: Negative. Respiratory: Negative. Cardiovascular: Negative. Gastrointestinal: Negative. Endocrine: Negative. Genitourinary: Negative. Musculoskeletal: Negative. Skin: Negative. Neurological: Negative. Psychiatric/Behavioral: Negative. Objective Physical Exam Vitals reviewed. Constitutional: Appearance: He is obese. HENT: Head: Normocephalic. Cardiovascular: Rate and Rhythm: Normal rate and regular rhythm. Pulmonary: Effort: Pulmonary effort is normal. Breath sounds: Normal breath sounds. Abdominal: Palpations: Abdomen is soft. Musculoskeletal: General: Normal range of motion. Skin: General: Skin is warm and dry. Coloration: Skin is pale. Neurological: Mental Status: He is alert and oriented to person, place, and time. Psychiatric: Mood and Affect: Mood normal. Behavior: Behavior normal. Assessment/Plan Problem List Items Addressed This Visit ICD-10-CM Type 2 diabetes mellitus with stage 4 chronic kidney disease, with long-term current use of insulin([facility]) E11.22, N18.4, Z79.4 Continues to have some high blood sugars, currently is on insulin only, being followed by endocrinology Hypertension I10 Blood pressure is currently well-controlled on amlodipine, metoprolol, furosemide, spironolactone Mixed hyperlipidemia E78.2 Stage 4 chronic kidney disease ([facility]) - Primary N18.4 Creatinine is stable at 2.07 and is actually slightly improved from his last check, Relevant Orders Basic metabolic panel Albumin , Urine Random Urinalysis with Reflex Microscopic Follow Up In Nephrology Anemia due to stage 3b chronic kidney disease ([facility]) N18.32, D63.1 Receiving darbepoetin every 2 weeks, currently with hemoglobin of 8.4, to have bone marrow biopsy in the next week and a half, being followed by hematology - CKD III/IV with baseline creatinine 2-2.2 - Hypertension on amlodipine, Metorplolol, Furosemide - Diabetic Nephropathy: UPC is 0.15 - Diabetes mellitus type 2 on insulin - Bilateral lower extremity edema: Stable. - Pulmonary embolism on Eliquis - Obesity - Obstructive sleep apnea on CPAP machine and compliant - Hyperlipidemia on a statin - History of coronary artery disease on Plavix and aspirin. - B/L Renal Cyst - Hyperuricemia SOY Easley DNP 02/03/24 9:38 AM documented in this [facility] Work Phone: [phone]) 403-885303-12-2024 History of Present illness Narrative* SOY Paulson - 01/12/2024 2:00 PM EDT Patient ID: Jewel Chaves is a 88 y.o. male. Subjective HPI Patient ID: Jewel Chaves is a 88 y.o. male. Subjective HPI 86 yo man with hx of reflux gastritis, coronary artery disease/ OK on aspirin, DM, hypertension, obesity, sleep apnea, history of PE on Eliquis, chronic kidney disease stage III, DJD, admission Nov 2020 for COVID19 pneumonia, referred for pancytopenia. He has chronic anemia with hg of around 12 g/dl, MCV of 107, his recent cbc showed decreased wbc of 3.6K , ANC of 2.0, plts of 117 , labs in January2022 showed a ferritin of 154, Tsat of 42%, folic acid of 22.7, b12 of 601, his Cr is around 2.1 he feels well, he complains of fatigue he is on Eliquis, he has been on anticoagulation for a long time per patient he is able to didi put ADLs no SOB , no chest no bleeding, no hematochezia, no hematuria, no melena, no other bleeding he has DWAIN and is on CPAP, he is generally compliant but some nights get frustrated and does not use it eating well, no weight loss has easy bruising on bumping or hitting himself no new fever or infections he has morning hip pain and also his wrists interval history- 01/12/24 No recent falls No recent illness No fevers, chills Energy remains decent Eating and drinking well 10lbs weight gain in 3 weeks No longer having episodes of dizziness Feels steady on feet Placed back on baby aspirin remains off eliquis, Juvano from [place] Blood sugars remains on insulin 50 units of Lantus in PM BS ranging from 197-250 Increased SOB, Occasional productive am cough, white/clear phlegm No chest pain or pressure remains on oxygen and CPAP, sleeping well all night long Occasional sweating around face and legs Bowels are regular, denies any hematochezia or melena No longer taking iron supplement No urinary issues, no dysuria or hematuria continues to follow nephrology in [place] 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 There were no vitals taken for this visit. Physical Exam Vitals and nursing note reviewed. Constitutional: Appearance: Normal appearance. HENT: Head: Normocephalic and atraumatic. Mouth/Throat: Pharynx: Oropharynx is clear. Eyes: General: No scleral icterus. Extraocular Movements: Extraocular movements intact. Conjunctiva/sclera: Conjunctivae normal. Cardiovascular: Rate and Rhythm: Normal rate and regular rhythm. Pulses: Normal pulses. Heart sounds: Normal heart sounds. No murmur heard. Pulmonary: Effort: Pulmonary effort is normal. No respiratory distress. Breath sounds: Normal breath sounds. Abdominal: General: Bowel sounds are normal. There is no distension. Tenderness: There is no abdominal tenderness. Hernia: A hernia is present. Hernia is present in the umbilical area. Comments: Abdominal firm, non-tender Musculoskeletal: General: Normal range of motion. Cervical back: Normal range of motion. Skin: General: Skin is warm and dry. Neurological: General: No focal deficit present. Mental Status: He is alert and oriented to person, place, and time. Motor: Weakness present. Psychiatric: Mood and Affect: Mood normal. Behavior: Behavior normal. Thought Content: Thought content normal. Judgment: Judgment normal. Performance Status: Symptomatic; fully ambulatory Assessment/Plan 1. 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 plan to check remaining work up for anemia: -hemolysis labs: LDH, retic, haptoglobin -monoclonal gammopathy: SPEP, UPEP mild leukopenia and thrombocytopenia: -check US abd for hepatosplenomegaly -hepatitis and HIV -b12 and folic acid were normal -MAURIZIO send for smear review and flow for an abnormal cell population detection we discussed that if work up is negative an evolving myeloid neoplasm is possible nevertheless the counts are mildly low and would observe rather pursuing a bone marrow biopsy 05/28/22- his work up showed an small abnormal B cell population 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 but also there was a phenotypic abnormality of granulocyte and possibility of MDS can not be ruled out we discussed above however due to the counts being mildly low we discussed deferring marrow exam atthis time US showed fatty liver but no splenomegaly other work up negative will plan to check NGS for myeloid mutations with next labs and check an EPO level at this time will continue surveillance of cbc and check a repeat in 3 months 10/02/22 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 his RIPSS score is low or very low risk depending on the karyotype which is pending for his anemia we discussed initiating CHRISTIE with Aranesp but he prefers to defer now will monitor the hg and if it drops < 10 g/dl will initiate 11/14/22 his RIPSS score is very low at this time he is clinically stable, and the counts have remained stable his fatigue is also improved we will continue count monitor , consider CHRISTIE if hg drops 02/16/23 patient remains clinically stable, but his Hgb has dropped to 9 g/dl discussed initiating CHRISTIE, patient would like to defer at this time and reconsider if Hg remains below 10 d/gl fatigue remains unchanged, denies any abnormal bleeding or bruising, no overt bleeding will continue to monitor labs and plan to initiate CHRISTIE if Hgb remains below 10 g/dl 01/12/24 Hg has trended down to 7.9, WBC remains low at 1.8. Platelets have trended down to 67k. Patient reports decreased energy. Appetite is good, eating and drinking well, reports 10lb weight gain over 3 weeks. Blood Sugars remain to be uncontrolled ranging from 197-250 follows with PCP. Increased SOB. No abnormal bleeding or bruising. Denies any constitutional B symptoms. Patient reports that he feels as though his stomach is tight and distended. Will order CAP CT w/o contrast due to pts kidney function. Patient is currently receiving Darbepoetin 300mcg every 2 weeks, and tolerating well. Patients counts remain low, despite the change of frequency with the Darbepoetin. Proceed with treatment today. Discussed bone marrow biopsy with patient based on cytopenias. Patient would like to proceed with testing at this time. Order placed for CT Guided Bone Marrow Aspiration and Biopsy. Plan: Scheduled pt for CT Guided Bone Marrow Biopsy CAP CT w/o contrast Repeat lab CBC next week Continue treatment with Darbepoetin q 2 weeks with labs prior RTC 4 weeks , to discuss pathology results from bone marrow SOY Paulson * Maris Kim RN - 01/12/2024 2:00 PM EDT Darbepoetin today Ct scans 01/21 noon arrival- no contrast Rtc 01/25 2pm stat labs 230pm [employer] 3pm Darboetin injection Referral placed for Bone Marrow BX at [facility]- they will call pt to schedule Reviewed AVS with patient- patient verbalizes understanding documented in this [facility] Work Phone: [phone]) [phone] Instructions* Patient Instructions* SOY Paulson - 01/12/2024 2:00 PM EDT Scheduled pt for CT Guided Bone Marrow Biopsy CAP CT w/o contrast Repeat lab CBC next week Continue treatment with Darbepoetin q 2 weeks with labs prior RTC 4 weeks , to discuss pathology results from bone marrow documented in this [facility] Work Phone: 1(442) [phone] History of Present illness Narrative* Anya Peterson MA - 12/23/2023 10:40 AM EST Subjective Patient ID: Jewel Chaves is a 88 y.o. male who presents for 6 month follow up ahd labs completed.Medication refills. HPI Review of Systems Objective There were no vitals taken for this visit. Physical Exam Assessment/Plan * Palmira العراقي MD - 12/23/2023 10:40 AM EST Subjective Jewel Chaves is a 88 y.o. male who presents for No chief complaint on file.. Here for routine follow up HTN, DM, CKD (Dr Martin), CAD ([facility]), high chol, thrombocytopenia/anemia/pancytopenia (Dr Parra), tremor (Dr Can), DWAIN, h/o PE, GI bleed, DWAIN on CPAP ([facility]). He does have some issues with dizziness when standing up quickly. We will decrease his amlodipine as his BP is on the lower side today. He would like to get a refill of spironolactone - it looks like it came from the doctor in [place] (Dr Nava) - he has been taking it and is finding it helpful for his swelling. His sugars are slightly better but still elevated, we will increase his lantus to 50 units daily. Objective Visit Vitals BP (!) 120/48 (BP Location: Left arm, Patient Position: Sitting, BP Cuff Size: Adult) Pulse 68 Physical Exam Vitals reviewed. Constitutional: General: He is not in acute distress. Cardiovascular: Rate and Rhythm: Normal rate and regular rhythm. Heart sounds: No murmur heard. Pulmonary: Effort: Pulmonary effort is normal. No respiratory distress. Breath sounds: Normal breath sounds. Skin: General: Skin is warm and dry. Neurological: General: No focal deficit present. Mental Status: He is alert. Mental status is at baseline. Latest Reference Range & Units 12/21/23 08:02 GLUCOSE 74 - 99 mg/dL 219 (H) SODIUM 136 - 145 mmol/L 137 POTASSIUM 3.5 - 5.3 mmol/L 4.3 CHLORIDE 98 - 107 mmol/L 101 Bicarbonate 21 - 32 mmol/L 26 Anion Gap 10 - 20 mmol/L 14 Blood Urea Nitrogen 6 - 23 mg/dL 43 (H) Creatinine 0.50 - 1.30 mg/dL 2.41 (H) EGFR >60 mL/min/1.73m*2 25 (L) Calcium 8.6 - 10.3 mg/dL 9.6 Albumin 3.4 - 5.0 g/dL 4.0 Alkaline Phosphatase 33 - 136 U/L 94 ALT 10 - 52 U/L 17 AST 9 - 39 U/L 26 Bilirubin Total 0.0 - 1.2 mg/dL 1.0 HDL CHOLESTEROL mg/dL 29.0 Cholesterol/HDL Ratio 3.1 LDL Calculated <=99 mg/dL 31 VLDL 0 - 40 mg/dL 30 TRIGLYCERIDES 0 - 149 mg/dL 150 (H) Non HDL Cholesterol 0 - 149 mg/dL 61 Total Protein 6.4 - 8.2 g/dL 6.9 CHOLESTEROL 0 - 199 mg/dL 90 Vitamin B12 211 - 911 pg/mL 511 Hemoglobin A1C see below % 10.4 (H) Thyroid Stimulating Hormone 0.44 - 3.98 mIU/L 3.97 Estimated Average Glucose Not Established mg/dL 252 WBC 4.4 - 11.3 x10*3/uL 1.7 (L) nRBC 0.0 - 0.0 /100 WBCs 1.8 (H) RBC 4.50 - 5.90 x10*6/uL 2.35 (L) HEMOGLOBIN 13.5 - 17.5 g/dL 8.4 (L) HEMATOCRIT 41.0 - 52.0 % 25.2 (L) MCV 80 - 100 fL 107 (H) MCH 26.0 - 34.0 pg 35.7 (H) MCHC 32.0 - 36.0 g/dL 33.3 RED CELL DISTRIBUTION WIDTH 11.5 - 14.5 % 19.3 (H) Platelets 150 - 450 x10*3/uL 101 (L) Neutrophils % 40.0 - 80.0 % 39.8 Immature Granulocytes %, Automated 0.0 - 0.9 % 0.6 Lymphocytes % 13.0 - 44.0 % 51.2 Monocytes % 2.0 - 10.0 % 6.0 Eosinophils % 0.0 - 6.0 % 2.4 Basophils % 0.0 - 2.0 % 0.0 Neutrophils Absolute 1.60 - 5.50 x10*3/uL 0.66 (L) Immature Granulocytes Absolute, Automated 0.00 - 0.50 x10*3/uL 0.01 Lymphocytes Absolute 0.80 - 3.00 x10*3/uL 0.85 Monocytes Absolute 0.05 - 0.80 x10*3/uL 0.10 Eosinophils Absolute 0.00 - 0.40 x10*3/uL 0.04 Basophils Absolute 0.00 - 0.10 x10*3/uL 0.00 RBC Morphology See Below Polychromasia Mild Hypochromia Mild RBC Fragments Few Target Cells Few Ovalocytes Few Teardrop Cells Few Rod Cells Few Basophilic Stippling Present (H): Data is abnormally high (L): Data is abnormally low Assessment/Plan Problem List Items Addressed This Visit Other pancytopenia (CMS/[facility]) CAD (coronary artery disease) - Primary Relevant Medications amLODIPine (Norvasc) 5 mg tablet Other Relevant Orders Follow Up In Primary Care - Medicare Annual Type 2 diabetes mellitus with stage 4 chronic kidney disease, with long-term current use of insulin([facility]) Relevant Orders Follow Up In Primary Care - Medicare Annual Hypertension Relevant Medications allopurinol (Zyloprim) 100 mg tablet Other Relevant Orders Follow Up In Primary Care - Medicare Annual Mixed hyperlipidemia Relevant Medications atorvastatin (Lipitor) 40 mg tablet Other Relevant Orders Follow Up In Primary Care - Medicare Annual Neutropenia (CMS/HCC) Relevant Orders Follow Up In Primary Care - Medicare Annual DWAIN on CPAP Relevant Orders Follow Up In Primary Care - Medicare Annual Thrombocytopenia ([facility]/HCC) Relevant Orders Follow Up In Primary Care - Medicare Annual Tremor, essential Relevant Orders Follow Up In Primary Care - Medicare Annual Myelodysplastic syndrome, 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[facility]/HCC) Peripheral vascular disease, 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[facility]) Other Visit Diagnoses Leukopenia, unspecified type Relevant Orders Follow Up In Primary Care - Medicare Annual Essential (primary) hypertension Relevant Medications amLODIPine (Norvasc) 5 mg tablet Other Relevant Orders Follow Up In Primary Care - Medicare Annual Type 2 diabetes mellitus with diabetic chronic kidney disease ([facility]) Relevant Medications insulin glargine (Lantus U-100 Insulin) 100 unit/mL injection Other Relevant Orders Comprehensive Metabolic Panel Hemoglobin A1C CBC and Auto Differential Follow Up In Primary Care - Medicare Annual Follow Up In Primary Care - Medicare Annual Chronic kidney disease, stage 3 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[facility]) Relevant Medications insulin glargine (Lantus U-100 Insulin) 100 unit/mL injection Other Relevant Orders Comprehensive Metabolic Panel Hemoglobin A1C CBC and Auto Differential Follow Up In Primary Care - Medicare Annual Edema, unspecified type Relevant Medications spironolactone (Aldactone) 25 mg tablet Palmira العراقي MD [facility]: 1([phone]) 182-797902-21-2024 Instructions* Patient Instructions* Palmira العراقي MD - 12/23/2023 10:40 AM EST Will decrease the amlodipine to 5 mg daily. Will increase Lantus to 50 units daily. Continue other current medications. Follow up with specialists as scheduled. Follow up in 3 months. [facility]: 1(350) [phone] History of Present illness Narrative* Robert Mortensen Jr., AMALIA - 12/16/2023 11:26 AM EST Right heel wound Patient is a pleasant 88-year-old diabetic male who comes in today right heel painful wound and blister. Admits that he believes his heel wound is quite a bit better, he has been compliantly using bacitracin twice daily to the wound site. Physical Vascular: DP PT pulses are poorly palpable with +2 edema. Derm: Right medial heel blister today is fully epithelialized the ulcerative portion is fully filled and there is no surrounding erythema no gapping no streaking lymphangitis no fluctuance or crepitation. No surrounding erythema no streaking no fluctuance. Neuro: Light touch is blunted. Musculoskeletal: Muscle strength is 5 out of 5 with fair tone. Can easily wiggle toes. Nails are thickened dystrophic. Assessment and plan: Patient is a pleasant 88-year-old type II diabetic male with new onset right heel blister and wound superficial. Wound site is substantially improved in the last 3 weeks with appropriate bacitracin, ok to now discontinue F/u in 3 months for mcfp f/u. Low medical complexity decision making based on his elevated limb loss risk score. documented in this [id number] History of Present illness Narrative* Elaine Betts APRN-LIZZ - 12/15/2023 1:30 PM EST Patient ID: Jewel Chaves is a 88 y.o. male. Subjective HPI 86 yo man with hx of reflux gastritis, coronary artery disease/ OK on aspirin, DM, hypertension, obesity, sleep apnea, history of PE on Eliquis, chronic kidney disease stage III, DJD, admission Nov 2020 for COVID19 pneumonia, referred for pancytopenia. He has chronic anemia with hg of around 12 g/dl, MCV of 107, his recent cbc showed decreased wbc of 3.6K , ANC of 2.0, plts of 117 , labs in January2022 showed a ferritin of 154, Tsat of 42%, folic acid of 22.7, b12 of 601, his Cr is around 2.1 he feels well, he complains of fatigue he is on Eliquis, he has been on anticoagulation for a long time per patient he is able to didi put ADLs no SOB , no chest no bleeding, no hematochezia, no hematuria, no melena, no other bleeding he has DWAIN and is on CPAP, he is generally compliant but some nights get frustrated and does not use it eating well, no weight loss has easy bruising on bumping or hitting himself no new fever or infections he has morning hip pain and also his wrists interval history- 12/15/23 No recent falls No recent illness No fevers, chills, night sweats Energy remains decent Occasional dizziness Feels unsteady at times ambulating Placed back on baby aspirin Eating and drinking well remains off eliquis, Juvano from [place] Blood sugars remains on insulin 40 units of Lantus in PM BS ranging from 129-300 No SOB Productive am cough, white/clear phlegm No chest pain or pressure remains on oxygen and CPAP, sleeping well all night long Bowels are regular, denies any hematochezia or melena taking 1 iron daily, tolerating well No urinary issues, no dysuria or hematuria continues to follow nephrology in [place] 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 There were no vitals taken for this visit. Physical Exam Vitals and nursing note reviewed. Constitutional: Appearance: Normal appearance. HENT: Head: Normocephalic and atraumatic. Mouth/Throat: Mouth: Mucous membranes are moist. Pharynx: Oropharynx is clear. Eyes: General: No scleral icterus. Extraocular Movements: Extraocular movements intact. Conjunctiva/sclera: Conjunctivae normal. Cardiovascular: Rate and Rhythm: Normal rate and regular rhythm. Pulses: Normal pulses. Heart sounds: Normal heart sounds. No murmur heard. Pulmonary: Effort: Pulmonary effort is normal. No respiratory distress. Breath sounds: Normal breath sounds. Abdominal: General: There is no distension. Palpations: Abdomen is soft. There is no mass. Tenderness: There is no abdominal tenderness. Musculoskeletal: General: No tenderness. Normal range of motion. Cervical back: Normal range of motion. Right lower leg: Edema present. Left lower leg: Edema present. Skin: General: Skin is warm and dry. Neurological: General: No focal deficit present. Mental Status: He is alert and oriented to person, place, and time. Motor: Weakness present. Psychiatric: Mood and Affect: Mood normal. Behavior: Behavior normal. Behavior is cooperative. Thought Content: Thought content normal. Judgment: Judgment normal. Performance Status: Asymptomatic Assessment/Plan 1. 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 plan to check remaining work up for anemia: -hemolysis labs: LDH, retic, haptoglobin -monoclonal gammopathy: SPEP, UPEP mild leukopenia and thrombocytopenia: -check US abd for hepatosplenomegaly -hepatitis and HIV -b12 and folic acid were normal -MAURIZIO send for smear review and flow for an abnormal cell population detection we discussed that if work up is negative an evolving myeloid neoplasm is possible nevertheless the counts are mildly low and would observe rather pursuing a bone marrow biopsy 05/28/22- his work up showed an small abnormal B cell population 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 but also there was a phenotypic abnormality of granulocyte and possibility of MDS can not be ruled out we discussed above however due to the counts being mildly low we discussed deferring marrow exam atthis time US showed fatty liver but no splenomegaly other work up negative will plan to check NGS for myeloid mutations with next labs and check an EPO level at this time will continue surveillance of cbc and check a repeat in 3 months 10/02/22 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 his RIPSS score is low or very low risk depending on the karyotype which is pending for his anemia we discussed initiating CHRISTIE with Aranesp but he prefers to defer now will monitor the hg and if it drops < 10 g/dl will initiate 11/14/22 his RIPSS score is very low at this time he is clinically stable, and the counts have remained stable his fatigue is also improved we will continue count monitor , consider CHRISTIE if hg drops 02/16/23 patient remains clinically stable, but his Hgb has dropped to 9 g/dl discussed initiating CHRISTIE, patient would like to defer at this time and reconsider if Hg remains below 10 d/gl fatigue remains unchanged, denies any abnormal bleeding or bruising, no overt bleeding will continue to monitor labs and plan to initiate CHRISTIE if Hgb remains below 10 g/dl 12/15/23 Hg has trended down to 8.5, WBC has trended down to 1.5. Platelets remains around baseline at 93k. Patient feeling well. Energy is decent. Appetite is good. Blood Sugars remain to be uncontrolled ranging from 129-300, follows with PCP. Denies any SOB. No abnormal bleeding or bruising. Denies any constitutional B symptoms. Patient is currently receiving Darbepoetin 300mcg every 3 weeks, and tolerating well. Patients counts remain low, will increase patient's frequency to every 2 weeks in hopes it will increase his counts. Will remain with same dose and frequency at this time. Patient to return in 2 weeks for labs and Darbepoetin 300mcg Discussed consideration for bone marrow biopsy if counts remain low. Will hold off at this time andrepeat labs in 4 weeks. 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 will be changing to every 2 weeks 12/29 2pm stat lab and Darbepoetin 01/11 130 stat lab 2pm [employer] GRINDER OPERATOR 230 Darpoetin Ortho Bps done today- were negative Reviewed AVS with patient- patient verbalizes understanding [facility] Work Phone: [phone]) 412-736302-13-2024 Instructions* Patient Instructions* SOY Paulson - 12/15/2023 1:30 PM EST Due for a Darbopoetin today Hg is 8.5 increasing Darbopoetin to q 2weeks Waiting for WBC result, discussed possible consideration for repeat bone marrow Bx RTC in 4 weeks with labs prior [facility] Work Phone: 1(862) 237-848101-02-2024 History of Present illness Narrative* SOY Paulson - 11/03/2023 2:00 PM EST Patient ID: Jewel Chaves is a 88 y.o. male. Subjective HPI 86 yo man with hx of reflux gastritis, coronary artery disease/ OK on aspirin, DM, hypertension, obesity, sleep apnea, history of PE on Eliquis, chronic kidney disease stage III, DJD, admission Nov 2020 for COVID19 pneumonia, referred for pancytopenia. He has chronic anemia with hg of around 12 g/dl, MCV of 107, his recent cbc showed decreased wbc of 3.6K , ANC of 2.0, plts of 117 , labs in January2022 showed a ferritin of 154, Tsat of 42%, folic acid of 22.7, b12 of 601, his Cr is around 2.1 he feels well, he complains of fatigue he is on Eliquis, he has been on anticoagulation for a long time per patient he is able to didi put ADLs no SOB , no chest no bleeding, no hematochezia, no hematuria, no melena, no other bleeding he has DWAIN and is on CPAP, he is generally compliant but some nights get frustrated and does not use it eating well, no weight loss has easy bruising on bumping or hitting himself no new fever or infections he has morning hip pain and also his wrists interval history- 11/03/23 Recovering from an illness- symptoms coughing- yellow phelgm, no body aches, no fevers, no fatigue,or sore throat Energy remains decent Feels unsteady at times ambulating Change in medications, pred 50mg Placed back on baby aspirin Strength is improving Eating and drinking well remains off eliquis, Nimesh from [place] Ambulating has improved since change of medication No SOB Productive am cough, white/yellow phlegm No fever, chills, drenching night sweats No chest pain or pressure remains on oxygen and CPAP, sleeping well all night long Bowels are regular, denies any hematochezia or melena taking 1 iron daily, tolerating well Blood sugars have been higher recently in 300s, remains on insulin Taking 40 units insulin No diarrhea or constipation, no hematochezia or melena No urinary issues, no dysuria or hematuria continues to follow nephrology in [place] No infections, fever, chills or night sweats 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 There were no vitals taken for this visit. Physical Exam Vitals and nursing note reviewed. Constitutional: Appearance: Normal appearance. HENT: Head: Normocephalic and atraumatic. Mouth/Throat: Mouth: Mucous membranes are moist. Pharynx: Oropharynx is clear. Eyes: General: No scleral icterus. Extraocular Movements: Extraocular movements intact. Conjunctiva/sclera: Conjunctivae normal. Cardiovascular: Rate and Rhythm: Normal rate and regular rhythm. Heart sounds: Normal heart sounds. No murmur heard. Pulmonary: Effort: Pulmonary effort is normal. No respiratory distress. Breath sounds: Normal breath sounds. No wheezing. Abdominal: General: Bowel sounds are normal. There is no distension. Palpations: There is no mass. Tenderness: There is no abdominal tenderness. Musculoskeletal: General: Swelling present. Cervical back: Normal range of motion. Skin: General: Skin is warm and dry. Neurological: General: No focal deficit present. Mental Status: He is alert and oriented to person, place, and time. Psychiatric: Mood and Affect: Mood normal. Behavior: Behavior normal. Thought Content: Thought content normal. Judgment: Judgment normal. Performance Status: Asymptomatic Assessment/Plan 1. 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 plan to check remaining work up for anemia: -hemolysis labs: LDH, retic, haptoglobin -monoclonal gammopathy: SPEP, UPEP mild leukopenia and thrombocytopenia: -check US abd for hepatosplenomegaly -hepatitis and HIV -b12 and folic acid were normal -MAURIZIO send for smear review and flow for an abnormal cell population detection we discussed that if work up is negative an evolving myeloid neoplasm is possible nevertheless the counts are mildly low and would observe rather pursuing a bone marrow biopsy 05/28/22- his work up showed an small abnormal B cell population 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 but also there was a phenotypic abnormality of granulocyte and possibility of MDS can not be ruled out we discussed above however due to the counts being mildly low we discussed deferring marrow exam atthis time US showed fatty liver but no splenomegaly other work up negative will plan to check NGS for myeloid mutations with next labs and check an EPO level at this time will continue surveillance of cbc and check a repeat in 3 months 10/02/22 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 his RIPSS score is low or very low risk depending on the karyotype which is pending for his anemia we discussed initiating CHRISTIE with Aranesp but he prefers to defer now will monitor the hg and if it drops < 10 g/dl will initiate 11/14/22 his RIPSS score is very low at this time he is clinically stable, and the counts have remained stable his fatigue is also improved we will continue count monitor , consider CHRISTIE if hg drops 02/16/23 patient remains clinically stable, but his Hgb has dropped to 9 g/dl discussed initiating CHRISTIE, patient would like to defer at this time and reconsider if Hg remains below 10 d/gl fatigue remains unchanged, denies any abnormal bleeding or bruising, no overt bleeding will continue to monitor labs and plan to initiate CHRISTIE if Hgb remains below 10 g/dl 11/03/23 Hg has trended down to 8.8, WBC has improved to 2.1 Platelets remains around baseline at 87k. Patient reports feeling the best he has felt in the past several months. Energy and strength have improved. Denies any SOB. No abnormal bleeding or bruising. Denies any constitutional B symptoms. Patient is currently receiving Darbepoetin 300mcg every 3 weeks, and tolerating well. Discussed with patient if symptoms continue and counts don't respond will consider increasing frequency to every 2 weeks. Will remain with same dose and frequency at this time. 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 Admits that he believes his heel wound is quite a bit better, he has been compliantly using bacitracin twice daily to the wound site. Physical Vascular: DP PT pulses are poorly palpable with +2 edema. Derm: Right medial heel blister today is fully epithelialized the ulcerative portion is fully filled and there is no surrounding erythema no gapping no streaking lymphangitis no fluctuance or crepitation. No surrounding erythema no streaking no fluctuance. Neuro: Light touch is blunted. Musculoskeletal: Muscle strength is 5 out of 5 with fair tone. Can easily wiggle toes. Nails are thickened dystrophic. Assessment and plan: Patient is a pleasant 88-year-old type II diabetic male with new onset right heel blister and wound superficial. Wound site is substantially improved in the last 3 weeks with appropriate bacitracin. Today can discontinue bacitracin but needs to continue thick padding to protect the site to let it mature well. Follow-up in 2 months for long-term visit. Low medical complexity decision making based on his elevated limb loss risk score. documented in this [id number] History of Present illness Narrative* SOY Paulson - 09/22/2023 2:30 PM EST Patient ID: Jewel Chaves is a 88 y.o. male. Subjective HPI HPI 86 yo man with hx of reflux gastritis, coronary artery disease/ OK on aspirin, DM, hypertension, obesity, sleep apnea, history of PE on Eliquis, chronic kidney disease stage III, DJD, admission Nov 2020 for COVID19 pneumonia, referred for pancytopenia. He has chronic anemia with hg of around 12 g/dl, MCV of 107, his recent cbc showed decreased wbc of 3.6K , ANC of 2.0, plts of 117 , labs in January2022 showed a ferritin of 154, Tsat of 42%, folic acid of 22.7, b12 of 601, his Cr is around 2.1 he feels well, he complains of fatigue he is on Eliquis, he has been on anticoagulation for a long time per patient he is able to didi put ADLs no SOB , no chest no bleeding, no hematochezia, no hematuria, no melena, no other bleeding he has DWAIN and is on CPAP, he is generally compliant but some nights get frustrated and does not use it eating well, no weight loss has easy bruising on bumping or hitting himself no new fever or infections he has morning hip pain and also his wrists interval history- 09/22/23 Energy is better, patient feels well today Change in medications, pred 50mg Placed back on baby aspirin Strength is improving Eating and drinking well remains off eliquis, Lidao from [place] Ambulating has improved since change of medication No SOB Productive am cough, white/yellow phlegm No fever, chills, drenching night sweats No chest pain or pressure remains on oxygen and CPAP, sleeping well all night long Bowels are regular, denies any hematochezia or melena taking 1 iron daily, tolerating well Blood sugars have been higher recently in 300s, remains on insulin Taking 40 units insulin No diarrhea or constipation, no hematochezia or melena No urinary issues, no dysuria or hematuria continues to follow nephrology in [place] No infections, fever, chills or night sweats 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 There were no vitals taken for this visit. Physical Exam Vitals and nursing note reviewed. Constitutional: Appearance: Normal appearance. HENT: Head: Normocephalic and atraumatic. Nose: Nose normal. Mouth/Throat: Mouth: Mucous membranes are moist. Eyes: General: No scleral icterus. Extraocular Movements: Extraocular movements intact. Conjunctiva/sclera: Conjunctivae normal. Cardiovascular: Rate and Rhythm: Normal rate and regular rhythm. Heart sounds: Normal heart sounds. No murmur heard. No gallop. Pulmonary: Effort: No respiratory distress. Breath sounds: Normal breath sounds. No wheezing. Abdominal: General: There is no distension. Palpations: Abdomen is soft. There is no mass. Tenderness: There is no abdominal tenderness. Musculoskeletal: General: No swelling, tenderness or deformity. Normal range of motion. Cervical back: Normal range of motion and neck supple. Skin: General: Skin is warm and dry. Neurological: General: No focal deficit present. Mental Status: He is alert and oriented to person, place, and time. Psychiatric: Mood and Affect: Mood normal. Behavior: Behavior normal. Thought Content: Thought content normal. Judgment: Judgment normal. Performance Status: Asymptomatic Assessment/Plan 1. 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 plan to check remaining work up for anemia: -hemolysis labs: LDH, retic, haptoglobin -monoclonal gammopathy: SPEP, UPEP mild leukopenia and thrombocytopenia: -check US abd for hepatosplenomegaly -hepatitis and HIV -b12 and folic acid were normal -MAURIZIO send for smear review and flow for an abnormal cell population detection we discussed that if work up is negative an evolving myeloid neoplasm is possible nevertheless the counts are mildly low and would observe rather pursuing a bone marrow biopsy 05/28/22- his work up showed an small abnormal B cell population 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 but also there was a phenotypic abnormality of granulocyte and possibility of MDS can not be ruled out we discussed above however due to the counts being mildly low we discussed deferring marrow exam atthis time US showed fatty liver but no splenomegaly other work up negative will plan to check NGS for myeloid mutations with next labs and check an EPO level at this time will continue surveillance of cbc and check a repeat in 3 months 10/02/22 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 his RIPSS score is low or very low risk depending on the karyotype which is pending for his anemia we discussed initiating CHRISTIE with Aranesp but he prefers to defer now will monitor the hg and if it drops < 10 g/dl will initiate 11/14/22 his RIPSS score is very low at this time he is clinically stable, and the counts have remained stable his fatigue is also improved we will continue count monitor , consider CHRISTIE if hg drops 02/16/23 patient remains clinically stable, but his Hgb has dropped to 9 g/dl discussed initiating CHRISTIE, patient would like to defer at this time and reconsider if Hg remains below 10 d/gl fatigue remains unchanged, denies any abnormal bleeding or bruising, no overt bleeding will continue to monitor labs and plan to initiate CHRISTIE if Hgb remains below 10 g/dl 09/22/23 Hg has trended down to 8.9, WBC has improved to 2.1 Platelets remains around baseline at 93k. Patient reports feeling the best he has felt in the past several months. Energy and strength have improved. Denies any SOB. No abnormal bleeding or bruising. Denies any constitutional B symptoms. Patientwas placed on 40mg of prednisone daily. Patient is currently receiving Darbepoetin 300mcg every 3 weeks, and tolerating well. Discussed with patient if symptoms continue and counts don't respond will consider increasing frequency to every 2 weeks. Will remain with same dose and frequency at this time. Patient to return in 3 weeks for labs and Darbepoetin 300mcg RTC 6 weeks with labs (CBC w/diff, CMP, Ferritin, Iron Studies B12) SOY Paulson * Maris Kim RN - 09/22/2023 2:30 PM EST Pt had labs at visit and Aranesp to follow. Pt set up for 10/13 stat lab and aranesp 11/03 stat lab, OV with Elaine Betts CNP and Valentine to follow Reviewed AVS with patient- patient verbalizes understanding documented in this [facility] Work Phone: 1(291) 340-261311-21-2023 Instructions* Patient Instructions* SOY Paulson - 09/22/2023 2:30 PM EST CHRISTIE injection in 3 weeks- with labs prior RTC in 6 weeks with labs prior [facility] Work Phone: [phone]) 561-666111-17-2023 History of Present illness Narrative* Robert Mortensen Jr., DPM - 09/18/2023 11:27 AM EST Right heel wound Patient is a pleasant 88-year-old diabetic male who comes in today right heel painful wound and blister. He states that he is not sure how it got this but its been present for a week. Denies any trauma. Physical Vascular: DP PT pulses are poorly palpable with +2 edema. Derm: Does have a blister right medial heel though no opening no draining no streaking no lymphangitis but it is flat and dried. No surrounding erythema no streaking no fluctuance. Neuro: Light touch is blunted. Musculoskeletal: Muscle strength is 5 out of 5 with fair tone. Can easily wiggle toes. Nails are thickened dystrophic. Assessment and plan: Patient is a pleasant 88-year-old type II diabetic male with new onset right heel blister and wound superficial. Offload diligent with padding and protection. Start topical bacitracin daily with dry bandage. Follow-up in 3 weeks to reevaluate right heel wound. Low medical complexity decision making based on his elevated limb loss risk score. documented in this [id number] History of Present illness Narrative* SOY Paulson - 08/10/2023 10:30 AM EDT Patient ID: Jewel Chaves is a 87 y.o. male. Subjective HPI History of Present Illness: ID Statement: JEWEL CHAVES is a 87 year old Male Chief Complaint: Evaluation for pancytopenia Interval History: Referred by SOY Wilcox Reason for referral: pancytopenia HPI 86 yo man with hx of reflux gastritis, coronary artery disease/ OK on aspirin, DM, hypertension, obesity, sleep apnea, history of PE on Eliquis, chronic kidney disease stage III, DJD, admission Nov 2020 for COVID19 pneumonia, referred for pancytopenia. He has chronic anemia with hg of around 12 g/dl, MCV of 107, his recent cbc showed decreased wbc of 3.6K , ANC of 2.0, plts of 117 , labs in January2022 showed a ferritin of 154, Tsat of 42%, folic acid of 22.7, b12 of 601, his Cr is around 2.1 he feels well, he complains of fatigue he is on Eliquis, he has been on anticoagulation for a long time per patient he is able to didi put ADLs no SOB , no chest no bleeding, no hematochezia, no hematuria, no melena, no other bleeding he has DWAIN and is on CPAP, he is generally compliant but some nights get frustrated and does not use it eating well, no weight loss has easy bruising on bumping or hitting himself no new fever or infections he has morning hip pain and also his wrists interval history- 08/10/23 No recent hospital admissions No follow-up GI Energy slightly improving remains to feel generalized weakness, maybe slightly improved Eating and drinking well Recently at the [facility], di decently well No falls remains off eliquis, baby aspirin, and Juvano from [place] Ambulating is improving over the past couple of days Breathing has improved, YUAN occasionally Productive cough, white/yellow phlegm since fair week No fever, chills, drenching night sweats No chest pain or pressure remains on oxygen and CPAP, is waking up in the middle of night around 3-4 in the am Bowels are regular, denies any hematochezia or melena taking 1 iron daily, tolerating well Blood sugars have been higher recently in 300s, remains on insulin Taking 40 units insulin No diarrhea or constipation, no hematochezia or melena No urinary issues, no hematuria continues to follow nephrology No infections, fever, chills or night sweats 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 Constitutional: General: He is not in acute distress. Appearance: Normal appearance. HENT: Head: Normocephalic and atraumatic. Nose: Nose normal. Mouth/Throat: Mouth: Mucous membranes are moist. Pharynx: Oropharynx is clear. Eyes: Extraocular Movements: Extraocular movements intact. Pupils: Pupils are equal, round, and reactive to light. Cardiovascular: Rate and Rhythm: Normal rate and regular rhythm. Pulses: Normal pulses. Heart sounds: Normal heart sounds. No murmur heard. Pulmonary: Effort: Pulmonary effort is normal. No respiratory distress. Breath sounds: Normal breath sounds. No wheezing. Abdominal: General: Bowel sounds are normal. There is no distension. Palpations: Abdomen is soft. There is no mass. Tenderness: There is no abdominal tenderness. Musculoskeletal: General: No swelling or deformity. Normal range of motion. Cervical back: Normal range of motion and neck supple. Skin: General: Skin is warm and dry. Findings: No bruising or erythema. Neurological: General: No focal deficit present. Mental Status: He is alert and oriented to person, place, and time. Motor: Weakness present. Psychiatric: Mood and Affect: Mood normal. Behavior: Behavior normal. Performance Status: Symptomatic; fully ambulatory Assessment/Plan 1. 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 plan to check remaining work up for anemia: -hemolysis labs: LDH, retic, haptoglobin -monoclonal gammopathy: SPEP, UPEP mild leukopenia and thrombocytopenia: -check US abd for hepatosplenomegaly -hepatitis and HIV -b12 and folic acid were normal -MAURIZIO send for smear review and flow for an abnormal cell population detection we discussed that if work up is negative an evolving myeloid neoplasm is possible nevertheless the counts are mildly low and would observe rather pursuing a bone marrow biopsy 05/28/22- his work up showed an small abnormal B cell population 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 but also there was a phenotypic abnormality of granulocyte and possibility of MDS can not be ruled out we discussed above however due to the counts being mildly low we discussed deferring marrow exam atthis time US showed fatty liver but no splenomegaly other work up negative will plan to check NGS for myeloid mutations with next labs and check an EPO level at this time will continue surveillance of cbc and check a repeat in 3 months 10/02/22 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 his RIPSS score is low or very low risk depending on the karyotype which is pending for his anemia we discussed initiating CHRISTIE with Aranesp but he prefers to defer now will monitor the hg and if it drops < 10 g/dl will initiate 11/14/22 his RIPSS score is very low at this time he is clinically stable, and the counts have remained stable his fatigue is also improved we will continue count monitor , consider CHRISTIE if hg drops 02/16/23 patient remains clinically stable, but his Hgb has dropped to 9 g/dl discussed initiating CHRISTIE, patient would like to defer at this time and reconsider if Hg remains below 10 d/gl fatigue remains unchanged, denies any abnormal bleeding or bruising, no overt bleeding will continue to monitor labs and plan to initiate CHRISTIE if Hgb remains below 10 g/dl 08/10/23 Pantcytopenia has slightly improved. Hg (9.2), WBC (1.9), and Platelets (99k). Patients is not irondeficient at this time. Patient continues report fatigue and generalized weakness. Denies any constitutional B symptoms. No GI symptoms. No major bleeding or bruising event. Breathing is stable. Appetite is good. No longer taking oral iron. Patient is currently receiving Darbepoetin 300mcg every 3 weeks, and tolerating well. Discussed with patient if symptoms continue and counts don't respond will consider increasing frequency to every 2 weeks. Will remain with same dose and frequency at this time. Patient to return in 3 weeks for labs and Darbepoetin 300mcg RTC 6 m with labs (CBC w/diff, CMP, Ferritin, Iron Studies B12) Cancer Staging No matching staging information was found for the patient. Oncology History No history exists. SOY Paulson documented in this [facility] Work Phone: 1(655) 259-570510-09-2023 Instructions* Patient Instructions* Maris Kim RN - 08/10/2023 10:30 AM EDT 08/31 9am lab draw and Aranesp injection at our office Lab at the [facility] Friday 09/21 follow up visit with Elaine Betts CNP on Saturday 09/22 9am and Aranesp at 930 [facility] Work Phone: [phone] 598-149610-02-2023 Evaluation + Plan note* Assessment & Plan Note - SOY Easley DNP - 08/03/2023 10:49 AM EDTAssociated Problem(s): Anemia Hemoglobin down to 8.7, he is getting an injection again in a couple of weeks and again next month,will continue to monitor, iron and ferritin levels are good [facility] Work Phone: [phone] 272-875310-02-2023 Miscellaneous Notes* Assessment & Plan Note - SOY Easley DNP - 08/03/2023 10:49 AM EDTAssociated Problem(s): Anemia Hemoglobin down to 8.7, he is getting an injection again in a couple of weeks and again next month,will continue to monitor, iron and ferritin levels are good * Assessment & Plan Note - SOY Easley DNP - 08/03/2023 10:48 AM EDT Associated Problem(s): Stage 3 chronic kidney disease (CMS/HCC) Creatinine is currently 2.23, he does range from 1.8-2.2 and is on the high end of his range, is working on better blood sugar control and is also getting injections for his anemia of chronic kidney disease * Assessment & Plan Note - SOY Easley DNP - 08/03/2023 10:46 AM EDT Associated Problem(s): DM type 2 causing CKD stage 3 (CMS/HCC) Blood sugars continue to run high, he was 396 this morning, on his labs he was in the 400s, Lantus has been increased from 30 units daily to 40 units daily, he is also having microalbuminuria, we diddiscuss the importance of good blood sugar control to try to help with kidney health. * Assessment & Plan Note - SOY Easley DNP - 08/03/2023 10:45 AM EDT Associated Problem(s): Mixed hyperlipidemia Currently on atorvastatin 20 mg daily * Assessment & Plan Note - SOY Easley DNP - 08/03/2023 10:45 AM EDT Associated Problem(s): Hypertension Blood pressure is well controlled on amlodipine 10 mg and metoprolol 50 mg daily he did have 1 low blood pressure 106 systolically at his physician's office however he does check it at home and it isusually in the 120s, will make no changes in his medications at this time [facility] Work Phone: [phone] 132-817110-02-2023 Evaluation + Plan note* Assessment & Plan Note - SOY Easley DNP - 08/03/2023 10:48 AM EDTAssociated Problem(s): Stage 3 chronic kidney disease ([facility]) Creatinine is currently 2.23, he does range from 1.8-2.2 and is on the high end of his range, is working on better blood sugar control and is also getting injections for his anemia of chronic kidney disease [facility] Work Phone: [phone]) 121-100110-02-2023 Evaluation + Plan note* Assessment & Plan Note - SOY Easley DNP - 08/03/2023 10:46 AM EDTAssociated Problem(s): DM type 2 causing CKD stage 3 ([facility]) Blood sugars continue to run high, he was 396 this morning, on his labs he was in the 400s, Lantus has been increased from 30 units daily to 40 units daily, he is also having microalbuminuria, we diddiscuss the importance of good blood sugar control to try to help with kidney health. [facility] Work Phone: [phone] Evaluation + Plan note* Assessment & Plan Note - SOY Easley DNP - 08/03/2023 10:45 AM EDTAssociated Problem(s): Mixed hyperlipidemia Currently on atorvastatin 20 mg daily [facility] Work Phone: [phone] Evaluation + Plan note* Assessment & Plan Note - SOY Easley DNP - 08/03/2023 10:45 AM EDTAssociated Problem(s): Hypertension Blood pressure is well controlled on amlodipine 10 mg and metoprolol 50 mg daily he did have 1 low blood pressure 106 systolically at his physician's office however he does check it at home and it isusually in the 120s, will make no changes in his medications at this time [facility] Work Phone: 1([phone]) 301-841010-02-2023 History of Present illness Narrative* SOY Easley DNP - 08/03/2023 10:15 AM EDT Subjective Patient ID: Jewel Chaves is a 87 y.o. male who presents for Follow-up (6 MONTH FUV- LAB REVIEW 07/30/2023). Patient being seen in follow-up for chronic kidney disease Main complaint today is that he is having some fatigue He denies any complaints of shortness of breath He has a mild swelling of his left lower extremity Blood pressure has been well controlled He is receiving injections at the infusion center secondary to his anemia of chronic kidney disease Blood sugars continue to be elevated He is increasing his Lantus He is on Jardiance Review of Systems Cardiovascular: Positive for leg swelling. Neurological: Positive for weakness. All other systems reviewed and are negative. Objective Physical Exam Vitals and nursing note reviewed. Constitutional: Appearance: Normal appearance. He is obese. HENT: Head: Normocephalic and atraumatic. Mouth/Throat: Mouth: Mucous membranes are moist. Pharynx: Oropharynx is clear. Eyes: Extraocular Movements: Extraocular movements intact. Cardiovascular: Rate and Rhythm: Normal rate and regular rhythm. Pulses: Normal pulses. Heart sounds: Normal heart sounds. Pulmonary: Effort: Pulmonary effort is normal. Breath sounds: Normal breath sounds. Abdominal: Palpations: Abdomen is soft. Musculoskeletal: General: Swelling present. Skin: General: Skin is warm and dry. Neurological: General: No focal deficit present. Mental Status: He is alert and oriented to person, place, and time. Psychiatric: Mood and Affect: Mood normal. Assessment/Plan Problem List Items Addressed This Visit ICD-10-CM Cardiac and Vasculature Hypertension I10 Blood pressure is well controlled on amlodipine 10 mg and metoprolol 50 mg daily he did have 1 low blood pressure 106 systolically at his physician's office however he does check it at home and it isusually in the 120s, will make no changes in his medications at this time Mixed hyperlipidemia E78.2 Currently on atorvastatin 20 mg daily Endocrine/Metabolic DM type 2 causing CKD stage 3 (CMS/HCC) E11.22, N18.30 Blood sugars continue to run high, he was 396 this morning, on his labs he was in the 400s, Lantus has been increased from 30 units daily to 40 units daily, he is also having microalbuminuria, we diddiscuss the importance of good blood sugar control to try to help with kidney health. Genitourinary and Reproductive Stage 3 chronic kidney disease (CMS/HCC) N18.30 Creatinine is currently 2.23, he does range from 1.8-2.2 and is on the high end of his range, is working on better blood sugar control and is also getting injections for his anemia of chronic kidney disease Hematology and Neoplasia Anemia D64.9 Hemoglobin down to 8.7, he is getting an injection again in a couple of weeks and again next month,will continue to monitor, iron and ferritin levels are good Other Visit Diagnoses Codes Chronic kidney disease, stage 4 (severe) ([facility]) - Primary N18.4 Relevant Orders Basic metabolic panel Albumin , Urine Random CBC Return to the office in 6 months with lab work documented in this [facility] Work Phone: [phone]) [phone] History of Present illness Narrative* Anya Peterson MA - 07/28/2023 1:20 PM EDT Subjective Patient ID: Jewel Chaves is a 87 y.o. male who presents for 2 month follow up. Patient states that he has been feeling weak. They has been having shots to help increase his RBC. Also has states that once awake they are unable to go back to sleep. Labs were completed. Medication refill on Sucraleate. 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 HPI Review of Systems Objective There were no vitals taken for this visit. Physical Exam Assessment/Plan * Palmira العراقي MD - 07/28/2023 1:20 PM EDT Subjective Jewel Chaves is a 87 y.o. male who presents for No chief complaint on file.. Here for routine follow up HTN, DM, CKD (Dr Martin), CAD ([facility]), high chol, thrombocytopenia/anemia (Dr Parra), tremor (Dr Can), DWAIN, h/o PE, GI bleed. He states that he is not feeling well. Hedeveloped a sore throat /cough on Thursday and that is getting a little better. His A1c is much higher and his sugars have been running higher so we will increase his insulin - he had increased to 30 -we will bump it up to 40 units daily. Objective Visit Vitals BP (!) 108/46 (BP Location: Left arm, Patient Position: Sitting, BP Cuff Size: Adult) Pulse 82 Physical Exam Vitals reviewed. Constitutional: General: He is not in acute distress. Cardiovascular: Rate and Rhythm: Normal rate and regular rhythm. Heart sounds: No murmur heard. Pulmonary: Effort: Pulmonary effort is normal. No respiratory distress. Breath sounds: Normal breath sounds. Skin: General: Skin is warm and dry. Neurological: General: No focal deficit present. Mental Status: He is alert. Mental status is at baseline. Latest Reference Range & Units 07/18/23 08:45 GLUCOSE 74 - 99 mg/dL 242 (H) SODIUM 136 - 145 mmol/L 139 POTASSIUM 3.5 - 5.3 mmol/L 4.0 CHLORIDE 98 - 107 mmol/L 103 Bicarbonate 21 - 32 mmol/L 27 Anion Gap 10 - 20 mmol/L 13 Blood Urea Nitrogen 6 - 23 mg/dL 28 (H) Creatinine 0.50 - 1.30 mg/dL 1.88 (H) Calcium 8.6 - 10.3 mg/dL 8.9 Albumin 3.4 - 5.0 g/dL 3.8 Alkaline Phosphatase 33 - 136 U/L 106 ALT 10 - 52 U/L 32 AST 9 - 39 U/L 39 Bilirubin Total 0.0 - 1.2 mg/dL 1.5 (H) HDL CHOLESTEROL mg/dL 32.0 ! Cholesterol/HDL Ratio 3.1 VLDL 0 - 40 mg/dL 34 TRIGLYCERIDES 0 - 149 mg/dL 171 (H) Total Protein 6.4 - 8.2 g/dL 6.1 (L) CHOLESTEROL 0 - 199 mg/dL 100 LDL 0 - 99 mg/dL 34 GFR MALE >90 mL/min/1.73m2 34 ! Vitamin B12 211 - 911 pg/mL 585 Hemoglobin A1C % 11.9 ! Thyroid Stimulating Hormone 0.44 - 3.98 mIU/L 3.82 Estimated Average Glucose MG/DL 295 WBC 4.4 - 11.3 x10E9/L 1.6 (L) RBC 4.50 - 5.90 x10E12/L 2.59 (L) HEMOGLOBIN 13.5 - 17.5 g/dL 9.3 (L) HEMATOCRIT 41.0 - 52.0 % 28.3 (L) MCV 80 - 100 fL 109 (H) MCHC 32.0 - 36.0 g/dL 32.9 Platelets 150 - 450 x10E9/L 78 (L) Neutrophils % 40.0 - 80.0 % 46.3 Immature Granulocytes %, Automated 0.0 - 0.9 % 0.6 Lymphocytes % 13.0 - 44.0 % 45.6 Monocytes % 2.0 - 10.0 % 4.4 Eosinophils % 0.0 - 6.0 % 2.5 Basophils % 0.0 - 2.0 % 0.6 Neutrophils Absolute 1.60 - 5.50 x10E9/L 0.73 (L) Lymphocytes Absolute 0.80 - 3.00 x10E9/L 0.72 (L) Monocytes Absolute 0.05 - 0.80 x10E9/L 0.07 Eosinophils Absolute 0.00 - 0.40 x10E9/L 0.04 Basophils Absolute 0.00 - 0.10 x10E9/L 0.01 RED CELL DISTRIBUTION WIDTH 11.5 - 14.5 % 17.6 (H) (H): Data is abnormally high !: Data is abnormal (L): Data is abnormally low Assessment/Plan Problem List Items Addressed This Visit Anemia CAD (coronary artery disease) DM type 2 causing CKD stage 3 ([facility]) Hypertension Mixed hyperlipidemia Other Visit Diagnoses Gastric ulcer, unspecified chronicity, unspecified whether gastric ulcer hemorrhage or perforation present Palmira العراقي MD [facility] Work Phone: [phone]) [phone] Instructions* Patient Instructions* Palmira العراقي MD - 07/28/2023 1:20 PM EDT Will increase insulin to 40 units daily - he may bump it up to 35 units daily for a couple of days first. Continue other current medications, continue follow up with specialists. Follow up here next month as scheduled. [facility] Work Phone: [phone]) [phone] NoteClinic Note: Education Assessment: Learning BarriersNo barriers TaughtPatient Primary Language of PatientEnglish Primary Language of Rosen LearnerEnglish Name of Rosen Learner & Relationshipwife present Clinic Visit: Topic(s): Clinic VisitFollow-up plan MethodVerbal, Teach-Back, Handout EvaluationTeaches back Nursing Note: Nursing Notept had labs drawn at visit- will call pt with f/u plan once labs are reviewed by PRECISION THREAD GRINDER OPERATOR PRECISION THREAD GRINDER OPERATOR spoke with pt. He is getting a few more labs. will review- may need to start EPO Electronic Signatures: Maris Kim (RN) (Signed 16-Jun-2023 16:17) Authored: Education Assessment, Clinic Visit, Nursing Note Last Updated: 16-Jun-2023 16:17 by Maris Kim (RN)[facility]07-24-2023 History of Present illness Narrative* Anya Peterson MA - 05/25/2023 10:20 AM EDT Subjective Patient ID: Jewel Chaves is a 87 y.o. male who presents for 1 month recheck Patient states his sugar has been up. He is on his original dosage and been running 200-300 states same days he feels ok and some days he feels real tired. He also has complaints of itching. Not sure if it's one of his medications. HPI Review of Systems Objective There were no vitals taken for this visit. Physical Exam Assessment/Plan * Palmira العراقي MD - 05/25/2023 10:20 AM EDT Subjective Jewel Chaves is a 87 y.o. male who presents for No chief complaint on file.. Here for routine follow up HTN, DM, CKD (Dr Martin), CAD ([facility]), high chol, thrombocytopenia/anemia (Dr Parra), tremor (Dr Can), DWAIN, h/o PE, GI bleed. He continues to have some high sugars, heincreased the lanuts to 24 units - we will increase the lantus to 28 units daily. We will continue his protonix and sucralfate for now - discussed that we will likely decrease those at his next visit. He has some issues with occasional itching. Typically only if he is sitting still for a little bit, it is all over, no rashes. We discussed dehydration as a possible etiology. He will continue to monitor. Objective Visit Vitals BP 122/52 (BP Location: Left arm, Patient Position: Sitting, BP Cuff Size: Adult) Pulse 75 Physical Exam Vitals reviewed. Constitutional: General: He is not in acute distress. Cardiovascular: Rate and Rhythm: Normal rate and regular rhythm. Heart sounds: No murmur heard. Pulmonary: Effort: Pulmonary effort is normal. No respiratory distress. Breath sounds: Normal breath sounds. Skin: General: Skin is warm and dry. Neurological: General: No focal deficit present. Mental Status: He is alert. Mental status is at baseline. Assessment/Plan Problem List Items Addressed This Visit Anemia Relevant Medications pantoprazole (ProtoNix) 40 mg EC tablet Other Relevant Orders Follow Up In Primary Care - Established CAD (coronary artery disease) Relevant Orders CBC and Auto Differential Comprehensive Metabolic Panel Hemoglobin A1C Lipid Panel TSH with reflex to Free T4 if abnormal Vitamin B12 Follow Up In Primary Care - Established DM type 2 causing CKD stage 3 (CMS/HCC) Relevant Orders CBC and Auto Differential Comprehensive Metabolic Panel Hemoglobin A1C Lipid Panel TSH with reflex to Free T4 if abnormal Vitamin B12 Follow Up In Primary Care - Established Hypertension - Primary Relevant Orders CBC and Auto Differential Comprehensive Metabolic Panel Hemoglobin A1C Lipid Panel TSH with reflex to Free T4 if abnormal Vitamin B12 Follow Up In Primary Care - Established Mixed hyperlipidemia Relevant Orders CBC and Auto Differential Comprehensive Metabolic Panel Hemoglobin A1C Lipid Panel TSH with reflex to Free T4 if abnormal Vitamin B12 Follow Up In Primary Care - Established Other Visit Diagnoses Gastric ulcer, unspecified chronicity, unspecified whether gastric ulcer hemorrhage or perforation present Relevant Medications pantoprazole (ProtoNix) 40 mg EC tablet sucralfate (Carafate) 1 gram tablet Other Relevant Orders Follow Up In Primary Care - Established Palmira العراقي MD documented in this [facility] Work Phone: 1([phone]) [phone] Instructions* Patient Instructions* Palmira العراقي MD - 05/25/2023 10:20 AM EDT Continue current medications. Follow up with specialists as scheduled. Follow up in 2 months, sooner if needed. [facility] Work Phone: [phone]) [phone] NoteClinic Note: Education Assessment: Learning BarriersNo barriers TaughtPatient Primary Language of PatientEnglish Primary Language of Rosen LearnerEnglish Name of Rosen Learner & Relationshipwife present Nursing Note: Nursing NotePatient to follow up in one month with labs prior. Labs to be done 06/[address] [facility] and will see Elaine 06/15 @0830. Patient verbalized understanding of appointments. Electronic Signatures: Natalya Arvizu (ASST HEAD N MGR) (Signed 18-May-2023 09:38) Authored: Education Assessment, Nursing Note Last Updated: 18-May-2023 09:38 by Natalya Arvizu (ASST HEAD N MGR)[facility]07-14-2023 Instructions* Patient Instructions* Mariah Can MD - 05/15/2023 9:33 AM EDT May restart Mysoline 25 mg at night for 2 weeks, then increase to Mysoline 25 mg twice a day for 2 weeks, then increase to Mysoline 50 mg twice a day. Monitor for any nausea, dizziness and drowsiness. Please check with Dr. العراقي if you want to proceed with any carpal tunnel surgery. documented in this [id number] History of Present illness Narrative* Mariah Can MD - 05/15/2023 9:26 AM EDT Images from the original note were not included. [facility] - Neurology [address] floor [place] [id number] Nerve Conduction & EMG Report Patient: Jewel Chaves Sex: Male Date of : 1935 Visit Date: 05/15/2023 9:23 AM Age: 87 Years Examining MD: Mariah Can MD Referred by: Dr. العراقي Temperature: 32.7 Current Height: 5 feet 8 inch Referred for: BUE:numbness and paresthesias. No neck pain. + DM. Plan: The study is design to evaluate for radiculopathy, plexopathy, entrapment neuropathy, median or ulnar neuropathy. Indication, risk, side effects, and alternatives were explained. Patient agreedto proceed. Patient was instructed to clean the puncture site with soap and water and put some ice pack for bruising. Impression: This is an abnormal EMG. 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 There is also electrodiagnostic evidence of a right ulnar nerve entrapment across the elbow without axonal damage at this time. 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 There is NO electrodiagnostic evidence of bilateral cervical radiculopathy or brachial plexopathy. EMG Summary: The bilateral median motor nerve conduction study showed prolonged distal latency, increased left amplitude and reduced bilateral conduction velocities. Bilateral median sensory nerve conduction study showed prolonged distal latency and reduced amplitudes. The right ulnar motor nerve conduction study showed prolonged distal latency, normal amplitude and decreased conduction velocity across the elbow to 41.8 m/s. The right ulnar sensory nerve conductionstudy was normal. The left ulnar motor nerve conduction study showed normal latency and amplitude with reduced conduction velocity. The left ulnar sensory nerve conduction study showed absent response. The bilateral radial sensory nerve conduction study were normal. Needle EMG of the muscles tested showed decrease insertional activity on the left APB muscle. Thereare large amplitude, long duration motor unit action potentials with reduced recruitment pattern seen on the left APB muscle. The rest of the muscles tested showed no abnormal spontaneous activity. Normal motor unit action potentials and recruitment patterns were seen. Mariah Can MD Diplomate, ABPN, NBPAS Clinical Neurophysiology, Neurology, Vascular Neurology and Sleep Medicine [facility] [place] [phone] Motor NCS Nerve / Sites Muscle Latency Amplitude Distance Velocity ms mV cm m/s R Median - APB Wrist APB 5.90 7.0 7 Elbow APB 11.27 7.0 23 42.8 L Median - APB Wrist APB 9.94 0.9 7 Elbow APB 14.94 0.4 20 40.0 R Ulnar - ADM Wrist ADM 3.73 7.3 6.5 B.Elbow ADM 8.21 6.1 22.5 50.2 A.Elbow ADM 10.96 7.2 11.5 41.8 L Ulnar - ADM Wrist ADM 3.56 8.3 6.5 B.Elbow ADM 8.48 5.9 22.5 45.8 A.Elbow ADM 10.75 7.3 11 48.4 Sensory NCS Nerve / Sites Peak Amp Amp.2-3 Distance Velocity ms V V cm m/s R Median - Digit II Wrist 5.48 8.5 11.6 13 30 L Median - Digit II Wrist 7.04 0.04 4.2 13 24 R Ulnar - Digit V Wrist 3.08 10.2 4.0 11 45 L Ulnar - Digit V Wrist NR NR NR 11 NR R Radial - Snuff Forearm 2.71 21.9 8.7 10 55 L Radial - Snuff Forearm 2.15 30.2 1.6 10 74 EMG Summary Table Spontaneous Activity Amplitude Duration Recruitment Polyphasia Comment Muscle Ins Act Fib PSW Fasc - - - - - L. Deltoid Normal 0 0 0 Normal Normal Normal Normal Normal L. Triceps brachii Normal 0 0 0 Normal Normal Normal Normal Normal L. Biceps brachii Normal 0 0 0 Normal Normal Normal Normal Normal L. Pronator teres Normal 0 0 0 Normal Normal Normal Normal Normal L. Extensor digitorum communis Normal 0 0 0 Normal Normal Normal Normal Normal L. Flexor carpi ulnaris Normal 0 0 0 Normal Normal Normal Normal Normal L. Flexor digitorum profundus, dig 4 & 5 Normal 0 0 0 Normal Normal Normal Normal Normal L. Abductor digiti minimi (manus) Normal 0 0 0 Normal Normal Normal Normal Normal L. First dorsal interosseous Normal 0 0 0 Normal Normal Normal L. Abductor pollicis brevis Decr 0 0 0 Increase Increase Sl decr Normal Normal R. Deltoid Normal 0 0 0 Normal Normal Normal Normal Normal R. Triceps brachii Normal 0 0 0 Normal Normal Normal Normal Normal R. Biceps brachii Normal 0 0 0 Normal Normal Normal Normal Normal R. Pronator teres Normal 0 0 0 Normal Normal Normal Normal Normal R. Extensor digitorum communis Normal 0 0 0 Normal Normal Normal Normal Normal R. Flexor carpi ulnaris Normal 0 0 0 Normal Normal Normal Normal Normal R. Flexor digitorum profundus, dig 4 & 5 Normal 0 0 0 Normal Normal Normal Normal Normal R. Abductor digiti minimi (manus) Normal 0 0 0 Normal Normal Normal Normal Normal R. First dorsal interosseous Normal 0 0 0 Normal Normal Normal Normal Normal R. Abductor pollicis brevis Normal 0 0 0 Normal Normal Normal Normal Normal documented in this [id number] History of Present illness NarrativePatient has chronic Hx of Elevated PSA ..Most recent PSA was done 07/25 and was 1.87..Prior was 3.26on 04/23. Prior PSA was done 07/23 and was 2.77..prior PSA was 9.9 (12/23) Previous PSA was 3.77 06/21....No fhx of prostate ca...pt had a negative bx done 01/20... 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 Denies urgency and frequency...Some hesitancy....Denies dysuria. Denies hematuria. 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 [facility] Work Phone: [phone]) 972-182306-19-[address] Foley [facility] April 20, 2023 3:07pm Note Date/Time April 20, 2023 1:13 pm [facility] Medical Records Department [address] [place] [id number] Emergency Department Summary 04/20/23 MR#: [id number] Acct: [id number] Name: JEWEL CHAVES JUNIOR Rep #:[id number] : 1935 87 From: Kirk Foley MD PCP: Dr. Palmira العراقي MD Statu s:REG ER Location: ED HPI HPI - GI History of Present Illness Chief Complaint: GI Bleed Informant: patient and family Narrative Narrative: Patient presents for bright red blood per rectum several times starting yesterday. He states yesterday he had twice where there were small amount of bright red blood, and then today a larger amount, but it was just when he wiped and he had a normal nonbloody bowel movement just prior. He denies feeling lightheaded or near syncopal, no abdominal pain, nausea, vomiting, except for when he is on the toilet and is bleeding, he states he has a little bit of fleeting nausea. He was seen here about 2 weeks ago for similar issues, he had an EGD but they do not know what they found, they took him off of his blood thinning medications. He has felt malaised ever since, no different now. [facility] Medical History Anticoagulant long-term use Chronic lymphocytic leukemia of B-cell type Cirrhosis Diabetes Hypercholesterolemia Hypertension Presence of stent in coronary artery in patient with coronary artery disease Stage 3 chronic kidney disease Home Medications allopurinol 100 mg tablet 100 mg PO DAILY 04/06/23 [History Last Taken Unknown] amlodipine 10 mg tablet 10 mg PO DAILY 04/06/23 [History Last Taken Unknown] atorvastatin 20 mg tablet 20 mg PO DAILY 04/06/23 [History Last Taken Unknown] furosemide 20 mg tablet 20 mg PO BID 04/06/23 [History Last Taken Unknown] multivitamin 1 tab PO DAILY 04/06/23 [History Last Taken Unknown] gabapentin 300 mg capsule 300 mg PO BID 7 days #14 caps 04/09/23 [Rx Last Taken Unknown] lactulose 20 gram/30 mL oral solution 30 g (45 mL) PO BID 30 days #2,700 mL 04/09/23 [Rx Last Taken Unknown] pantoprazole 40 mg tablet,delayed release 40 mg PO BID 30 days #60 tabs 04/09/23[Rx Last Taken Unknown] sucralfate 1 gram tablet (Carafate) 1 g PO TIDCM 30 days #90 tabs 04/09/23 [Rx Last Taken Unknown] ascorbic acid (vitamin C) 250 mg tablet (Vitamin C) 250 mg PO BID #60 tabs 04/20/23 [Rx Last Taken Unknown] ferrous sulfate 325 mg (65 mg iron) tablet 325 mg PO BID #1 TAB 04/20/23 [Rx Last Taken Unknown] insulin glargine 100 unit/mL (3 mL) subcutaneous pen (Lantus Solostar U-100 Insulin) 22 unit (0.22 mL) subcut QHS Check with primary doctor #15 mL 04/20/23 [Rx Last Taken Unknown] metoprolol tartrate 50 mg tablet 50 mg PO BID #60 tabs 04/20/23 [Rx Last Taken Unknown] Allergy/AdvReac Type Severity Reaction Status Date / Time metformin AdvReac Diarrhea Verified 04/20/23 12:31 Surgical History History of cholecystectomy History of hernia surgery Social History household members: spouse Smoking Status: Never smoker substance use type: does not use ROS ROS ED Constitutional Constitutional ED: Reports malaise; Denies chills or fever(s) Eyes Eyes: Denies change in vision or diplopia ENT ENT ED: Denies rhinorrhea or sore throat Cardiovascular Cardiovascular: Reports leg edema; Denies chest pain or palpitations Respiratory/Chest Respiratory/Chest: Denies cough or dyspnea Gastrointestinal Gastrointestinal: Reports hematochezia; Denies abdominal pain, diarrhea, melena,nausea or vomiting Genitourinary Genitourinary ED: Denies dysuria or hematuria Musculoskeletal Musculoskeletal: Denies back pain or neck pain Integumentary Denies abscess or rash Neurologic Neurologic: Denies headache(s), paresthesias or weakness Psychiatric Psychiatric: Denies anxiety or suicidal thoughts EXAM Physical Exam Const Vital Signs: 04/20/23 12:29 Temperature 97.7 F L Temperature Source Temporal Pulse Rate 94 Respiratory Rate 18 Blood Pressure 151/69 H Blood Pressure Mean 96 Pulse Ox 94 Oxygen Delivery Method Room Air Positive well nourished and well developed General Appearance ED: well developed and NAD HEENT Reports moist mucous membranes normocephalic and atraumatic Eyes PERRL and EOMs intact bilaterally Neck full ROM and supple Resp normal respiratory effort and clear to auscultation bilaterally Cardio regular rate, regular rhythm and no murmurs GI non-tender and non-distended GI Narrative: Rectal exam: Nontender, no obvious significant hemorrhoids, no active bleeding, trace amount of blood on the patient's diaper but trace amount of yellow-brown nonbloody stool on CINDY. Auscultation: normoactive bowel sounds Palpation: soft Back/Spine no CVA tenderness General Back: other FROM Extremity normal to inspection General Extremety ED: Yes edema; Negative for pulses abnormal or tenderness General Extremity: edema bilateral lower extremity Details: moderate; Negative for pulses abnormal Neuro oriented x3, CN's II-XII intact bilaterally and no sensory deficits noted Sensorium / Orientation: awake and alert Motor Exam: strength 5/5 throughout Skin no rashes or lesions noted and no wounds MDM MDM MDM Narrative Medical decision making narrative: I reviewed the patient's EGD from 04/06: 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 GI also suspected that the patient has cirrhosis, his ammonia level was a littlehigh, and he was placed on lactulose in addition to oral PPI. Clinically patient is not orthostatic. His hemoglobin is 8.9 but this is a little higher than it was when he was last checked. He has chronic renal insufficiency and the rest of his labs are similar to what they were. He had nofurther bouts of bowel movements or bleeding in the emergency department. I discussed with Dr. Kirby who recently saw him and scoped him. Based on this available information we both agree that this is likely from a distal colonic source and he is having no emergent bleeding does not need to be readmitted to the hospital at this time. He recommends making sure that he is on iron sulfatetwice daily, which he already is, and adding twice daily vitamin C to take with that, changing his metoprolol succinate 50 mg daily to metoprolol tartrate 50 mgtwice daily, and repeat hemogram in 3 days. The patient is asking me if he can increase his Lantus from 10 units nightly back up to 22 where he was at before he was admitted to the hospital. Looking at his list he is on no other diabeticmedications so I think that is reasonable since he is eating and drinking normally. History & Record Review Additional record(s) reviewed:: Prior inpatient record and Prior labs Lab Data Attestation: I reviewed the patient's lab results. Labs: Laboratory Results - last 24 hr 04/20/23 04/20/23 04/20/23 12:55 12:55 12:55 WBC 2.0 L RBC 2.64 L Hgb 8.9 L Hct 27.2 L MCV 103.0 H MCH 33.7 H MCHC 32.7 RDW Std Deviation 81.1 H RDW Coeff of Beto 22.0 H Plt Count 91 L MPV 11.3 Immature Gran % (Auto) 1.000 H Neut % (Auto) 61.5 Lymph % (Auto) 28.7 [place] % (Auto) 6.2 Eos % (Auto) 2.1 Baso % (Auto) 0.5 Absolute Neuts (auto) 1.2 L Absolute Lymphs (auto) 0.56 L Nucleated RBC % 0 Differential Comment COMMENT Diff Path Review May foll Platelet Estimate MOD DEC Anisocytosis 2+ Sodium 140 Potassium 3.9 Chloride 105 Carbon Dioxide 26.0 Anion Gap 9 BUN 23 H Creatinine 2.18 H Estim Creat Clear Calc 23.10 Est GFR (MDRD) Af Amer 37 L Est GFR (MDRD) Non-Af 31 L BUN/Creatinine Ratio 10.6 Glucose 321 H Calcium 9.6 Blood Type O NEGATIVE Antibody Screen NEGATIVE Discharge Plan Triage Chief Complaint: GI Bleed ED Provider: Kirk Foley Dx/Rx/DC Orders Clinical Impression: Painless rectal bleeding, Pancytopenia, Hyperglycemia due to type 2 diabetes mellitus Instructions: ED Lower GI Bleeding (Stable) Prescriptions: New metoprolol tartrate 50 mg tablet 50 mg PO BID Qty: 60 0RF ascorbic acid (vitamin C) [Vitamin C] 250 mg tablet 250 mg PO BID Qty: 60 0RF Continued multivitamin Tablet 1 tab PO DAILY atorvastatin 20 mg Tablet 20 mg PO DAILY allopurinol 100 mg Tablet 100 mg PO DAILY amlodipine 10 mg Tablet 10 mg PO DAILY furosemide 20 mg Tablet 20 mg PO BID sucralfate [Carafate] 1 gram Tablet 1 g PO TIDCM 30 Days Qty: 90 0RF pantoprazole 40 mg Tablet,Delayed Release (Dr/Ec) 40 mg PO BID 30 Days Qty: 60 0RF lactulose 20 gram/30 mL Solution 30 g PO BID 30 Days Qty: 2700 0RF gabapentin 300 mg Capsule 300 mg PO BID 7 Days Qty: 14 0RF Rx Instructions: Listed on home med list, doesn't seem to have filled recently. Short course sent until this can be discussed with PCP Changed ferrous sulfate 325 mg (65 mg iron) Tablet 325 mg PO BID Qty: 1 0RF insulin glargine [Lantus Solostar U-100 Insulin] 100 unit/mL (3 mL) insulin pen 22 unit SUBCUT QHS Qty: 15 0RF Label Comments: inject 30 units daily Discontinued metoprolol succinate 100 mg Tablet Extended Release 24 Hr 50 mg PO DAILY 30 Days Qty: 0 0RF Other Ambulatory Orders: CBC-Complete Blood Cnt No Diff (Routine) Timeframe: [id number] Facility: [facility] - Location: Laboratory Ordered By: Dr. Kirk Foley Primary Care Provider: Palmira العراقي Referrals: Palmira العراقي MD [Primary Care Provider] - Bert Kirby DO [Med Staff - Active Staff] - (As previously scheduled) Disposition Disposition: Home, Self Care What to do if you have Problems For any increased pain, shortness of breath, bleeding, nausea or vomiting, chestpain, or any unexpected problems, contact your Primary Care Provider. Call [facility] ([phone]) or report to the closest Emergency Room. Call 911 if necessary. 04/20/23 5894 <Electronically signed by Kirk Foley MD> Cosigner Signature (if applicable): CC: Dr. Palmira العراقي MD; Bert Kirby DO ~ Signed [facility] Work Phone: 1([phone]) 911-999806-08-[address] Velez [facility] April 09, 2023 11:54am Note Date/Time April 09, 2023 11:51 am [facility] Medical Records Department [address] [place] [address] Instructions for Home/Discharge Instructions 04/09/23 1150 MR#: [id number] Acct: [id number] Name: JEWEL CHAVES JUNIOR Rep #:[id number] : 1935 87 From: Mary Ellen Velez MD PCP: Dr. Palmira العراقي MD Statu s:ADM IN Discharge Instructions Diet Discharge Diet: 2000 mg Sodium Diet and - (-DASH diet, 3000 mg sodium restriction, 2 L fluid restriction) Activity Discharge Activity: Return to Normal Activity Follow Up Care Test Results: Test results from this visit will be discussed in further detail at your follow- up appointment, if applicable. Discharge Plan Admission Admit Date/Time: 04/06/23 08:01 Primary Reason for Your Visit: Dark tarry stools Attending Provider: Mary Ellen Velez Primary Care Provider: Palmira العراقي Instructions Patient Instructions: ED Upper GI Bleeding (Stable) Additional Instructions / Restrictions: DISCHARGE INSTRUCTIONS PLEASE READ *Please take this with you to your next doctors appointment* -You will need to take sucralfate 1 g three times daily and pantoprazole 40 mg twice daily for 8 weeks. After 8 weeks your pantoprazole may be decreased to once daily but will defer this to your outpatient physician -No aspirin, ibuprofen, naproxen, or other non-steroidal anti-inflammatory drugsfor 2 weeks, after that time we will discuss risks and benefits of aspirin with your primary care physician as it may be reasonable to discontinue this entirely -After discussing with you and the vitreo retinal surgeon your Eliquis has been discontinued due to recurrent bleeding and risks likely outweighing benefits -Please follow with your vitreo retinal surgeon upon discharge. If you are not yet established with a GI doctor and follow in our [place] office and call to schedule a follow-up appointment (ph. [phone]) -You have been started on lactulose 30 g twice daily for your liver, this can befurther adjusted in the future to achieve 2-3 bowel movements daily -Would recommend lab work (CBC and CMP) to check your hemoglobin, liver, and kidney function in 2 to 3 days through your primary care physician's office. Please call their office upon discharge to obtain order for lab work. -Continue your long-acting insulin at 10 units subcutaneously as this is controlled your glucose during her hospitalization. Given your kidney function would recommend against using Januvia and given your age and concurrent insulin use would recommend against using glimepiride. -Your metoprolol was decreased to 50 mg daily due to your blood pressure and heart rate -Weigh yourself every day. A sudden weight gain can mean you are retaining fluid. Weigh yourself at the same time of day and in the same kind of clothes. Ideally, weigh yourself first thing in the morning after you empty your bladder,but before you eat breakfast. -Please call your physician if your weight goes up by more than 2 pounds in 1 day or 5 pounds in 1 week. This can be a sign that you are retaining more fluid than you should be. -Please call your primary care provider's office upon discharge to schedule a hospital follow up within 1 week. -For any concerning signs or symptoms please call 911 or proceed to the nearest emergency department Discharge Orders/Prescriptions Prescriptions: New pantoprazole 40 mg Tablet,Delayed Release (Dr/Ec) 40 mg PO BID 30 Days Qty: 60 0RF lactulose 20 gram/30 mL Solution 30 g PO BID 30 Days Qty: 2700 0RF Continued multivitamin Tablet 1 tab PO DAILY atorvastatin 20 mg Tablet 20 mg PO DAILY allopurinol 100 mg Tablet 100 mg PO DAILY amlodipine 10 mg Tablet 10 mg PO DAILY ferrous sulfate 325 mg (65 mg iron) Tablet 325 mg PO DAILY gabapentin 300 mg Capsule 300 mg PO BID furosemide 20 mg Tablet 20 mg PO BID insulin glargine [Lantus Solostar U-100 Insulin] 100 unit/mL (3 mL) insulin pen SUBCUT Label Comments: inject 30 units daily Changed sucralfate [Carafate] 1 gram Tablet 1 g PO TIDCM 30 Days Qty: 90 0RF metoprolol succinate 100 mg Tablet Extended Release 24 Hr 50 mg PO DAILY 30 Days Qty: 0 0RF Discontinued glimepiride 2 mg Tablet 2 mg PO DAILY famotidine 20 mg Tablet 20 mg PO BID aspirin 81 mg Tablet 81 mg PO DAILY Eliquis 2.5 mg Tablet 2.5 mg PO BID Januvia 100 mg tablet Label Comments: TAKE 1 TABLET BY MOUTH DAILY Referrals / Follow Up: Palmira العراقي MD [Primary Care Provider] - 04/21/23 4:00 pm Disposition Disposition (needs filled in before D/C Order can be placed): Home, Self Care 04/09/23 1154<Electronically signed by Mary Ellen Velez MD>Mary Ellen Velez MD CC: Dr. Palmira العراقي MD ~ Signed [facility] Work Phone: 1([phone]) 178-879006-07-2023 Progress note Author Bert Friend [facility] April 08, 2023 5:59pm Note Date/Time April 08, 2023 5:59p m [facility] Medical Records Department [address] [place] [address] Progress Note - GI 04/08/23 1757 MR#: [id number] Acct: [id number] Name: JEWEL CHAVES Rep #:[id number] : 1935 87 From: Bert Friend DO PCP: Dr. Palmira العراقي MD Statu s:ADM IN [facility] Subjective Subjective Patient underwent an upper endoscopy yesterday for an acute upper GI bleed. He was discovered to have 2 areas of bleeding in his stomach that was treated endoscopically. He has been on octreotide and PPI drip since. Objective Data Objective Data Vital Signs: Vital Signs Temp Pulse Resp BP Pulse Ox O2 Del Method O2 Flow Rate 98.3 F 64 16 123/50 H 95 Room Air 2 04/08/23 16:00 04/08/23 16:00 04/08/23 16:00 04/08/23 16:00 04/08/23 16:00 04/08/23 16:00 04/08/23 07:53 Oxygen Flow Rate (L/min) 2 Oxygen Delivery Method Room Air Weight: 231 lb 14.821 oz Body Mass Index (BMI) 35.2 Intake & Output: Intake and Output for Last 24 Hours 04/06/23 04/07/23 04/08/23 23:59 23:59 23:59 Intake Total 535 / 535 1962.01 / 1962.01 1400.04 / 1400.04 Output Total 600 / 600 1300 / 1300 500 / 500 Balance -65 / -65 662.01 / 662.01 900.04 / 900.04 Lab / Micro Data Result Diagrams: 04/08/23 05:43 04/08/23 05:43 Labs: Laboratory Results - last 24 hr 04/07/23 21:20: Hgb 8.6 L 04/07/23 22:20: POC Glucose 178 H 04/08/23 01:08: Hgb 8.3 L 04/08/23 05:43: WBC 3.2 L, RBC 2.49 L, Hgb 8.2 L, Hct 25.5 L, MCV 102.4 H D, MCH32.9 H, MCHC 32.2, RDW Std Deviation 87.1 H, RDW Coeff of Beto 24.6 H, Plt Count 71 L, MPV 11.5, Immature Gran % (Auto) 1.900 H, Neut % (Auto) 63.2, Lymph % (Auto) 27.9, [place] % (Auto) 5.7, Eos % (Auto) 1.0, Baso % (Auto) 0.3, Absolute Neuts (auto) 2.0, Absolute Lymphs (auto) 0.88, Nucleated RBC % 1.0, DifferentialComment SCANNED, Platelet Estimate MOD DEC, Anisocytosis 2+, Microcytosis 1+, Macrocytosis 1+ 04/08/23 05:43: Sodium 140, Potassium 4.2, Chloride 110 H, Carbon Dioxide 25.0, Anion Gap 5, BUN 28 H, Creatinine 1.82 H, Estim Creat Clear Calc 27.66, Est GFR (MDRD) Af Amer 46 L, Est GFR (MDRD) Non-Af 38 L, BUN/Creatinine Ratio 15.4, Glucose 175 H, Calcium 8.2 L, Total Bilirubin 2.50 H, AST 44 H, ALT 38, AlkalinePhosphatase 86, Total Protein 5.9 L, Albumin 2.9 L, Globulin 3.0, Albumin/Globulin Ratio 1.0 04/08/23 06:17: POC Glucose 192 H 04/08/23 11:53: POC Glucose 241 H 04/08/23 16:42: POC Glucose 154 H Micro: Microbiology 04/06/23 06:00 Stool Stool Occult Blood (SAMMY) - Final Occult Blood Positive Radiography Diagnostic Testing: Radiology Impression Liver Ultrasound 04/08/23 07:00 IMPRESSION: Fatty infiltration of the liver and borderline hepatomegaly. Multiple right renal cysts. Electronically Signed: Lobo Eden MD at 10:27 EDT , Physical Exam Narrative General: Alert, oriented, no apparent distress HEENT: Atraumatic, normocephalic Eyes: Anicteric, normal conjunctiva, extraocular movements grossly intact Neck: Supple Respiratory: Clear to auscultation bilaterally, normal respiratory effort Cardiovascular: Regular rate and rhythm GI: Soft, no rebound, guarding, rigidity, Extremities: Trace to 1+ edema in lower extremities Musculoskeletal: Moving all extremities Neuro: No overt focal neurological deficits Skin: No rashes appreciated Psych: Cooperative Assessment & Plan Assessment/Plan (1) Acute GI bleeding: (2) Chronic lymphocytic leukemia of B-cell type: (3) Stage 3 chronic kidney disease: (4) Presence of stent in coronary artery in patient with coronary artery disease: (5) Cirrhosis: PLAN: Plan 87-year-old gentleman with history of hypertension, COPD, CAD status post stents, atrial fibrillation, gout with a recent upper GI bleed thought to be secondary to ulcerations in the gastric antrum along with angiodysplasia seen inupper GI tract. This was treated endoscopically. He remains off of blood thinners and is on PPI drip and octreotide. He receivedtransfusion 2 units of packed red blood cells. 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 I will check an ammonia level. He should be on lactulose 30 cc twice a day.. His aspirin and Eliquis are on hold. Alpha-fetoprotein to screen for liver cancer. Ffurther recommendations to follow 04/08: I told the patient's that I would not recommend any anticoagulants dueto his age, underlying pancytopenia and likely cirrhosis. I believe he has bonemarrow suppression contributing to his pancytopenia. His hemoglobin is stable at 8.2 and I am okay with stopping octreotide and PPI drip and switching him to oral PPI therapy only. Charges/Coding Visit Charges Inpatient E&M: 51108 Subs Hosp L3 04/08/23 1205 <Electronically signed by Bert Kirby DO> Cosigner Signature (if applicable): CC: ~ Signed [facility] Work Phone: 1(299) 280-882106-07-[address] Velez [facility] April 08, 2023 2:23pm Note Date/Time April 08, 2023 1:47p m [facility] Medical Records Department [address] [place] [address] Progress Note - Hospitalist 04/08/23 1347 MR#: [id number] Acct: [id number] Name: JEWEL CHAVES JUNIOR Rep #:[id number] : 1935 87 From: Mary Ellen Velez MD PCP: Dr. Palmira العراقي MD Statu s:ADM IN Location: [place] [address] Reason for Visit Reason for Visit: Diagnoses Chronic lymphocytic leukemia of B-cell type not having achieved remission (04/06/23) Atherosclerotic heart disease of [place] coronary artery without angina pectoris (04/06/23) Unspecified cirrhosis of liver (04/06/23) Gastrointestinal hemorrhage, 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04/06/23) Chronic kidney disease, stage 3 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04/06/23) Presence of coronary angioplasty implant and graft (04/06/23) Subjective Subjective Still has not had bowel movement but is feeling better today overall, no bleeding appreciated Objective Data Objective Data Vital Signs: Vital Signs Temp Pulse Resp BP Pulse Ox O2 Del Method O2 Flow Rate 98.5 F 66 16 129/56 H 93 Room Air 2 04/08/23 10:00 04/08/23 10:01 04/08/23 10:00 04/08/23 10:01 04/08/23 10:00 04/08/23 10:00 04/08/23 07:53 Oxygen Flow Rate (L/min) 2 Oxygen Delivery Method Room Air Weight: 105.2 kg Body Mass Index (BMI) 35.2 Intake & Output: Intake and Output for Last 24 Hours 04/06/23 04/07/23 04/08/23 23:59 23:59 23:59 Intake Total 535 / 535 1962.01 / 1962.01 560.04 / 560.04 Output Total 600 / 600 1300 / 1300 Balance -65 / -65 662.01 / 662.01 560.04 / 560.04 Lab / Micro Data Result Diagrams: 04/08/23 05:43 04/08/23 05:43 Labs: Laboratory Results - last 24 hr 04/06/23 05:53: Crossmatch See Detail 04/07/23 05:43: Diff Path Review Reviewed 04/07/23 16:26: POC Glucose 177 H 04/07/23 17:05: Hgb 10.2 L 04/07/23 21:20: Hgb 8.6 L 04/07/23 22:20: POC Glucose 178 H 04/08/23 01:08: Hgb 8.3 L 04/08/23 05:43: WBC 3.2 L, RBC 2.49 L, Hgb 8.2 L, Hct 25.5 L, MCV 102.4 H D, MCH32.9 H, MCHC 32.2, RDW Std Deviation 87.1 H, RDW Coeff of Beto 24.6 H, Plt Count 71 L, MPV 11.5, Immature Gran % (Auto) 1.900 H, Neut % (Auto) 63.2, Lymph % (Auto) 27.9, [place] % (Auto) 5.7, Eos % (Auto) 1.0, Baso % (Auto) 0.3, Absolute Neuts (auto) 2.0, Absolute Lymphs (auto) 0.88, Nucleated RBC % 1.0, DifferentialComment SCANNED, Platelet Estimate MOD DEC, Anisocytosis 2+, Microcytosis 1+, Macrocytosis 1+ 04/08/23 05:43: Sodium 140, Potassium 4.2, Chloride 110 H, Carbon Dioxide 25.0, Anion Gap 5, BUN 28 H, Creatinine 1.82 H, Estim Creat Clear Calc 27.66, Est GFR (MDRD) Af Amer 46 L, Est GFR (MDRD) Non-Af 38 L, BUN/Creatinine Ratio 15.4, Glucose 175 H, Calcium 8.2 L, Total Bilirubin 2.50 H, AST 44 H, ALT 38, AlkalinePhosphatase 86, Total Protein 5.9 L, Albumin 2.9 L, Globulin 3.0, Albumin/Globulin Ratio 1.0 04/08/23 06:17: POC Glucose 192 H 04/08/23 11:53: POC Glucose 241 H Micro: Microbiology 04/06/23 06:00 Stool Stool Occult Blood (SAMMY) - Final Occult Blood Positive Radiography Diagnostic Testing: Radiology Impression Liver Ultrasound 04/08/23 07:00 IMPRESSION: Fatty infiltration of the liver and borderline hepatomegaly. Multiple right renal cysts. Electronically Signed: Lobo Eden MD at 10:27 EDT , Physical Exam Narrative General: Alert, oriented, no apparent distress HEENT: Atraumatic, normocephalic Eyes: Anicteric, normal conjunctiva, extraocular movements grossly intact Neck: Supple Respiratory: Clear to auscultation bilaterally, normal respiratory effort Cardiovascular: Regular rate and rhythm GI: Soft, no rebound, guarding, rigidity, Extremities: Trace to 1+ edema in lower extremities Musculoskeletal: Moving all extremities Neuro: No overt focal neurological deficits Skin: No rashes appreciated Psych: Cooperative Assessment & Plan Assessment/Plan (1) Acute GI bleeding: (2) Chronic lymphocytic leukemia of B-cell type: (3) Stage 3 chronic kidney disease: (4) Presence of stent in coronary artery in patient with coronary artery disease: PLAN: Plan #Acute blood loss anemia secondary to oozing gastric ulcer, angiodysplastic lesions -Recent admit to [facility] hospital for acute on chronic anemia 2/2 upper GIB with endoscopy revealing several punctate ulcers in the antrum with H. 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 This a.m. hemoglobin 6.8, 2 units of packed red blood cells to be transfused. He still on IV PPI and octreotide. Hemoglobin improved to 10.2. Discussed with GI, continue liquid diet at this time and continue current management. Can consider advancing tomorrow if doing well/stable -04/08: 1 hemoglobin of 10.2 after transfusion however since then has consistentlybeen in the eights, suspect 10.2 was spurious but hemoglobin has been stable no further blood loss noted. PPI twice daily, advance diet per GI. Discussed withGI, possible DC tomorrow if stable. Given age and recent bleed and risk factorsmonitoring closely #Hx CAD w/ stents 12 years ago -Hold aspirin -Continue statin -Continue beta-tricia at half dose and can increase as tolerated -Patient reports being on Eliquis for his coronary artery disease and denies anyclots or history of A-fib, will attempt to review external records if available -04/07: No aspirin for 14 days #Type 2 diabetes mellitus -Glucose checks and sliding scale insulin -Patient reports taking 22 units long-acting at bedtime, will start on slightly lower dose and titrate -Hold glimepiride #YU versus CKD unclear subtype -Creatinine 2.25 but no baseline in our system -Trend BMP -Avoid nephrotoxic agents -04/07: Slightly better today -04/08: Continues to improve. On liver ultrasound did not note multiple renal cysts #Fatty infiltration of the liver/elevated bilirubin -GI following -Has had uptrending bilirubin but normal ALT, AST 44 and no acute complaints -No bile duct abnormality seen on liver ultrasound with a history of cholecystectomy -No other signs concerning for hemolysis and patient has no other complaints pointing to specific infection, will also check direct bilirubin and monitor forsigns or symptoms of other underlying etiology to direct further work-up necessary #chronic b cell CLL -By history #Pancytopenia -No baseline available in our system, fairly similar to yesterday, 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 -04/08: Remains pancytopenic with slight downtrend in platelet count and hemoglobin and white blood cell count fairly unchanged #DVT ppx: SCDs Mary Ellen Velez MD Time spent in the patient's overall evaluation,decision-making process, review of diagnostic data, adjustment of management, discussion with other providers, nursing nursing and ancillary staff involved in patient's care documentation, 30minutes Charges/Coding Visit Charges Inpatient E&M: 33763 Subs Hosp L2 04/08/23 1423 <Electronically signed by Mary Ellen Velez MD> Cosigner Signature (if applicable): CC: ~ Signed [facility] Work Phone: 1(590) 930-246906-06-2023 Progress note Author Bert Kirby [facility] April 07, 2023 6:23pm Note Date/Time April 07, 2023 6:23p [facility] Medical Records Department [address] [place] [address] Progress Note - GI 04/07/23 1819 MR#: [id number] Acct: [id number] Name: JEWEL CHAVES CAROLE Rep #:[id number] : 1935 87 From: Bert Kirby DO PCP: Dr. Palmira العراقي MD Statu s:ADM IN Location: [place] [address] Subjective Subjective Patient underwent emergent endoscopy yesterday and was discovered to have bleeding in his stomach that was controlled and stopped endoscopically. His hemoglobin was 6.8 this morning. He did receive transfusion of 2 units of packed red blood cells. Objective Data Objective Data Vital Signs: Vital Signs Temp Pulse Resp BP Pulse Ox O2 Del Method O2 Flow Rate 97.9 F 81 18 136/61 H 93 Room Air 2 04/07/23 15:43 04/07/23 15:43 04/07/23 15:43 04/07/23 15:43 04/07/23 15:43 04/07/23 15:43 04/07/23 10:17 Oxygen Flow Rate (L/min) 2 Oxygen Delivery Method Room Air Weight: 233 lb 7.512 oz Body Mass Index (BMI) 35.4 Intake & Output: Intake and Output for Last 24 Hours 04/05/23 04/06/23 04/07/23 23:59 23:59 23:59 Intake Total 535 / 535 1722.01 / 1722.01 Output Total 600 / 600 1300 / 1300 Balance -65 / -65 422.01 / 422.01 Lab / Micro Data Result Diagrams: 04/07/23 17:05 04/07/23 05:43 Labs: Laboratory Results - last 24 hr 04/06/23 05:53: Crossmatch See Detail 04/06/23 06:53: Crossmatch See Detail 04/06/23 21:43: POC Glucose 182 H 04/07/23 05:43: WBC 1.9 L, RBC 1.97 L, Hgb 6.8 L, Hct 21.6 L, MCV 109.6 H, MCH 34.5 H, MCHC 31.5 L, RDW Std Deviation 95.8 H, RDW Coeff of Beto 24.5 H, Plt Count 82 L, MPV 11.4, Immature Gran % (Auto) 0.500, Neut % (Auto) 59.7, Lymph % (Auto) 30.9, [place] % (Auto) 6.3, Eos % (Auto) 2.1, Baso % (Auto) 0.5, Absolute Neuts (auto) 1.1 L, Absolute Lymphs (auto) 0.59 L, Nucleated RBC % 0, Differential Comment COMMENT, Diff Path Review Reviewed, Platelet Estimate MOD DEC, Basophilic Stippling 1+, Anisocytosis 2+ 04/07/23 05:43: Sodium 141, Potassium 4.3, Chloride 111 H, Carbon Dioxide 25.0, Anion Gap 5, BUN 38 H, Creatinine 1.93 H, Estim Creat Clear Calc 26.09, Est GFR (MDRD) Af Amer 43 L, Est GFR (MDRD) Non-Af 35 L, BUN/Creatinine Ratio 19.7, Glucose 160 H, Calcium 8.6, Total Bilirubin 1.40 H, AST 56 H, ALT 44, Alkaline Phosphatase 91, Total Protein 5.9 L, Albumin 3.0 L, Globulin 2.9, Albumin/Globulin Ratio 1.0 04/07/23 05:43: PT 15.0 H, INR 1.2 04/07/23 06:36: POC Glucose 157 H 04/07/23 11:24: POC Glucose 188 H 04/07/23 16:26: POC Glucose 177 H 04/07/23 17:05: Hgb 10.2 L Micro: Microbiology 04/06/23 06:00 Stool Stool Occult Blood (SAMMY) - Final Occult Blood Positive Physical Exam Narrative General: Alert, oriented, no apparent distress HEENT: Atraumatic, normocephalic Eyes: Anicteric, normal conjunctiva, extraocular movements grossly intact Neck: Supple Respiratory: Clear to auscultation bilaterally, normal respiratory effort Cardiovascular: Regular rate and rhythm GI: Soft, no rebound, guarding, rigidity, Extremities: Trace to 1+ edema in lower extremities Musculoskeletal: Moving all extremities Neuro: No overt focal neurological deficits Skin: No rashes appreciated Psych: Cooperative Assessment & Plan Assessment/Plan (1) Acute GI bleeding: (2) Chronic lymphocytic leukemia of B-cell type: (3) Stage 3 chronic kidney disease: (4) Presence of stent in coronary artery in patient with coronary artery disease: (5) Cirrhosis: PLAN: Plan 87-year-old gentleman with history of hypertension, COPD, CAD status post stents, atrial fibrillation, gout with a recent upper GI bleed thought to be secondary to ulcerations in the gastric antrum along with angiodysplasia seen inupper GI tract. This was treated endoscopically. He remains off of blood thinners and is on PPI drip and octreotide. He receivedtransfusion 2 units of packed red blood cells. 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 I will check an ammonia level. He should be on lactulose 30 cc twice a day.. His aspirin and Eliquis are on hold. Alpha-fetoprotein to screen for liver cancer. Ffurther recommendations to follow Charges/Coding Visit Charges Inpatient E&M: 76277 Subs Hosp L3 04/07/231822 <Electronically signed by Bert Friend DO> Cosigner Signature (if applicable): CC: ~ Signed [facility] Work Phone: 1(340) 111-404406-06-[address] Velez [facility] April 07, 2023 5:40pm Note Date/Time April 07, 2023 8:55a m [facility] Medical Records Department [address] [place] [address] Progress Note - Hospitalist 04/07/23 0852 MR#: [id number] Acct: [id number] Name: JEWEL CHAVES JUNIOR Rep #:[id number] : 1935 87 From: Mary Ellen Velez MD PCP: Dr. Palmira العراقي MD Statu s:ADM IN Location: [place] [address] Reason for Visit Reason for Visit: Diagnoses Chronic lymphocytic leukemia of B-cell type not having achieved remission (04/06/23) Atherosclerotic heart disease of [place] coronary artery without angina pectoris (04/06/23) Gastrointestinal hemorrhage, 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04/06/23) Chronic kidney disease, stage 3 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04/06/23) Presence of coronary angioplasty implant and graft (04/06/23) Subjective Subjective Feeling better today, no abdominal pain, no blood or dark tarry stools noted, tolerating clear liquids Objective Data Objective Data Vital Signs: Vital Signs Temp Pulse Resp BP Pulse Ox O2 Del Method O2 Flow Rate 98.0 F 79 16 105/59 L 98 Nasal Cannula 3 04/07/23 03:16 04/07/23 03:16 04/07/23 03:16 04/07/23 03:16 04/07/23 03:18 04/07/23 03:18 04/07/23 03:18 Oxygen Flow Rate (L/min) 3 Oxygen Delivery Method Nasal Cannula Weight: 105.9 kg Body Mass Index (BMI) 35.4 Intake & Output: Intake and Output for Last 24 Hours 04/05/23 04/06/23 04/07/23 23:59 23:59 23:59 Intake Total 535 / 535 344.34 / 344.34 Output Total 600 / 600 500 / 500 Balance -65 / -65 -155.66 / -155.66 Lab / Micro Data Result Diagrams: 04/07/23 17:05 04/07/23 05:43 Labs: Laboratory Results - last 24 hr 04/06/23 05:53: Blood Type O NEGATIVE, Antibody Screen NEGATIVE 04/06/23 06:53: Crossmatch See Detail 04/06/23 13:15: Hgb 7.3 L 04/06/23 16:52: Hgb 7.5 L 04/06/23 17:26: POC Glucose 141 H 04/06/23 21:43: POC Glucose 182 H 04/07/23 05:43: WBC 1.9 L, RBC 1.97 L, Hgb 6.8 L, Hct 21.6 L, MCV 109.6 H, MCH 34.5 H, MCHC 31.5 L, RDW Std Deviation 95.8 H, RDW Coeff of Beto 24.5 H, Plt Count 82 L, MPV 11.4, Immature Gran % (Auto) 0.500, Neut % (Auto) 59.7, Lymph % (Auto) 30.9, [place] % (Auto) 6.3, Eos % (Auto) 2.1, Baso % (Auto) 0.5, Absolute Neuts (auto) 1.1 L, Absolute Lymphs (auto) 0.59 L, Nucleated RBC % 0, Differential Comment COMMENT, Diff Path Review May foll, Platelet Estimate MOD DEC, Basophilic Stippling 1+, Anisocytosis 2+ 04/07/23 05:43: Sodium 141, Potassium 4.3, Chloride 111 H, Carbon Dioxide 25.0, Anion Gap 5, BUN 38 H, Creatinine 1.93 H, Estim Creat Clear Calc 26.09, Est GFR (MDRD) Af Amer 43 L, Est GFR (MDRD) Non-Af 35 L, BUN/Creatinine Ratio 19.7, Glucose 160 H, Calcium 8.6, Total Bilirubin 1.40 H, AST 56 H, ALT 44, Alkaline Phosphatase 91, Total Protein 5.9 L, Albumin 3.0 L, Globulin 2.9, Albumin/Globulin Ratio 1.0 04/07/23 05:43: PT 15.0 H, INR 1.2 04/07/23 06:36: POC Glucose 157 H Micro: Microbiology 04/06/23 06:00 Stool Stool Occult Blood (SAMMY) - Final Occult Blood Positive Physical Exam Narrative General: Alert, oriented, no apparent distress HEENT: Atraumatic, normocephalic Eyes: Anicteric, normal conjunctiva, extraocular movements grossly intact Neck: Supple Respiratory: Clear to auscultation bilaterally, normal respiratory effort Cardiovascular: Regular rate and rhythm GI: Soft, no rebound, guarding, rigidity, Extremities: Trace to 1+ edema in lower extremities Musculoskeletal: Moving all extremities Neuro: No overt focal neurological deficits Skin: No rashes appreciated Psych: Cooperative Assessment & Plan Assessment/Plan (1) Acute GI bleeding: (2) Chronic lymphocytic leukemia of B-cell type: (3) Stage 3 chronic kidney disease: (4) Presence of stent in coronary artery in patient with coronary artery disease: PLAN: Plan #GIB, concern for upper etiology -Recent admit to [facility] hospital for acute on chronic anemia 2/2 upper GIB with endoscopy revealing several punctate ulcers in the antrum with H. 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 This a.m. hemoglobin 6.8, 2 units of packed red blood cells to be transfused. He still on IV PPI and octreotide. Hemoglobin improved to 10.2. Discussed with GI, continue liquid diet at this time and continue current management. Can consider advancing tomorrow if doing well/stable #Hx CAD w/ stents 12 years ago -Hold aspirin -Continue statin -Continue beta-tricia at half dose and can increase as tolerated -Patient reports being on Eliquis for his coronary artery disease and denies anyclots or history of A-fib, will attempt to review external records if available -04/07: No aspirin for 14 days #Type 2 diabetes mellitus -Glucose checks and sliding scale insulin -Patient reports taking 22 units long-acting at bedtime, will start on slightly lower dose and titrate -Hold glimepiride #YU versus CKD unclear subtype -Creatinine 2.25 but no baseline in our system -Trend BMP -Avoid nephrotoxic agents -04/07: Slightly better today #chronic b cell CLL -By history #Pancytopenia -No baseline available in our system,, fairly similar to yesterday, 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 #DVT ppx: SCDs Mary Ellen Velez MD Time spent in the patient's overall evaluation,decision-making process, review of diagnostic data, adjustment of management, discussion with other providers, nursing nursing and ancillary staff involved in patient's care documentation, 30minutes Charges/Coding Visit Charges Inpatient E&M: 55438 Subs Hosp L2 04/07/23 1740 <Electronically signed by Mary Ellen Velez MD> Cosigner Signature (if applicable): CC: ~ Signed [facility] Work Phone: [phone]) 939-259806-05-2023 Consult note Author Bert Kirby [facility] April 06, 2023 5:51pm Note Date/Time April 06, 2023 5:47p m [facility] Medical Records Department [address] [place] [address] Consultation - GI 04/06/23 1200 MR#: [id number] Acct: [id number] Name: JEWEL CHAVES JUNIOR Rep #:[id number] : 1935 87 From: Bert Kirby DO PCP: Dr. Palmira العراقي MD Statu s:ADM [facility] HPI Consult Data Date of Consult: 04/05/23 HPI Narrative Reason for Consultation: GI bleed HPI Narrative: JEWEL CHAVES, is a 87 M who presents for the evaluation of melanotic stools. Hehas a history of anemia chronic disease, gout, CLL, CKD stage III, atrial fibrillation on anticoag elation and, CAD on aspirin and a statin. He recently underwent an upper endoscopy for pancytopenia..? He had several stents placed 12years ago.? He also has history of ? He is on Pepcid.? He had an EGD performed by GI specialist at [facility] 2 weeks ago and was told he has lesions. ? He is also on sucralfate.? He presents because of black stool.? He denies orthostatic symptoms today.? He was lightheaded when he did his bowel prep.? He denies chest pain, dyspnea, dyspnea on exertion.? He denies orthopnea.? He denies intolerance to food.? He denies bruising easily.? Recently he was told todecrease his Eliquis dose. 1 11/03 he was admitted to affiliated institution and had upper endoscopy whichdemonstrated several punctate ulcers in the antrum.? He was discharged home and appears he is taking sucralfate twice daily and famotidine twice daily.? He sayssince that time he has had black stools though was on iron supplementation however 2 days ago he had 4 black bowel movements in a row and had 1 last night and has been intermittently dizzy when standing.? He does have little bit of left lower abdominal discomfort that he reports is intermittent and present overthe past month.? Also has been sneezing but denies any other complaints. [facility] Medical History Diabetes Hypertension Home Medications allopurinol 100 mg tablet 100 mg PO DAILY 04/06/23 [History Last Taken Unknown] amlodipine 10 mg tablet 10 mg PO DAILY 04/06/23 [History Last Taken Unknown] apixaban 2.5 mg tablet (Eliquis) 2.5 mg PO BID 04/06/23 [History Last Taken Unknown] aspirin 81 mg tablet 81 mg PO DAILY 04/06/23 [History Last Taken Unknown] atorvastatin 20 mg tablet 20 mg PO DAILY 04/06/23 [History Last Taken Unknown] famotidine 20 mg tablet 20 mg PO BID 04/06/23 [History Last Taken Unknown] ferrous sulfate 325 mg (65 mg iron) tablet 325 mg PO DAILY 04/06/23 [History Last Taken Unknown] furosemide 20 mg tablet 20 mg PO BID 04/06/23 [History Last Taken Unknown] gabapentin 300 mg capsule 300 mg PO BID 04/06/23 [History Last Taken Unknown] glimepiride 2 mg tablet 2 mg PO DAILY 04/06/23 [History Last Taken Unknown] metoprolol succinate 100 mg tablet,extended release 24 hr 100 mg PO DAILY 04/06/23 [History Last Taken Unknown] multivitamin 1 tab PO DAILY 04/06/23 [History Last Taken Unknown] sucralfate 1 gram tablet (Carafate) 1 g PO BID 04/06/23 [History Last Taken Unknown] Allergy/AdvReac Type Severity Reaction Status Date / Time metformin AdvReac Diarrhea Verified 04/06/23 05:49 Surgical History History of cholecystectomy History of hernia surgery Social History household members: spouse Smoking Status: Never smoker substance use type: does not use ROS ROS Narrative General: Denies fever/chills HENT: Denies headache, denies stuffy nose, denies sore throat, has been sneezing EYES: Denies changes in vision Resp: Denies cough, denies shortness of breath Cardiac: Denies chest pain GI: Some intermittent left lower quadrant discomfort, denies changes in bowel, denies nausea/vomiting : Denies changes in urination Extremity: Denies swelling MSK: Has some mild swelling bilateral lower extremities left greater than right which is chronic Neuro: Denies any numbness/tingling Heme: Denies any bleeding or bruising Skin: Denies rashes Psychiatric: No complaints voiced Physical Exam Narrative General: Alert, oriented, no apparent distress HEENT: Atraumatic, normocephalic Eyes: Anicteric, normal conjunctiva, extraocular movements grossly intact Neck: Supple Respiratory: Clear to auscultation bilaterally, normal respiratory effort Cardiovascular: Regular rate and rhythm GI: Soft, minimal left lower quadrant tenderness without rebound, guarding, rigidity, Extremities: Trace to 1+ edema on right lower extremity and 1+ in left lower extremity which she reports is chronic Musculoskeletal: Moving all extremities Neuro: No overt focal neurological deficits Skin: No rashes appreciated Psych: Cooperative Lab / Micro Data Result Diagrams: 04/06/23 16:52 04/06/23 05:53 Labs: Laboratory Results - last 24 hr 04/06/23 05:53: WBC 2.6 L, RBC 2.06 L, Hgb 7.3 L, Hct 23.5 L, MCV 114.1 H, MCH 35.4 H, MCHC 31.1 L, RDW Std Deviation 87.9 H, RDW Coeff of Beto 21.4 H, Plt Count 102 L, MPV 11.5, Immature Gran % (Auto) 1.100 H, Neut % (Auto) 53.6, Lymph% (Auto) 36.9, [place] % (Auto) 5.7, Eos % (Auto) 2.3, Baso % (Auto) 0.4, Absolute Neuts (auto) 1.4 L, Absolute Lymphs (auto) 0.97, Nucleated RBC % 0, Anisocytosis2+ 04/06/23 05:53: Sodium 143, Potassium 4.2, Chloride 112 H, Carbon Dioxide 25.0, Anion Gap 6, BUN 43 H, Creatinine 2.25 H, Estim Creat Clear Calc 22.38, Est GFR (MDRD) Af Amer 36 L, Est GFR (MDRD) Non-Af 29 L, BUN/Creatinine Ratio 19.1, Glucose 163 H, Calcium 8.9 04/06/23 05:53: Blood Type O NEGATIVE, Antibody Screen NEGATIVE 04/06/23 06:53: Crossmatch See Detail 04/06/23 13:15: Hgb 7.3 L 04/06/23 16:52: Hgb 7.5 L Micro: Microbiology 04/06/23 06:00 Stool Stool Occult Blood (SAMMY) - Final Occult Blood Positive Assessment & Plan Assessment/Plan (1) Acute GI bleeding: (2) Chronic lymphocytic leukemia of B-cell type: (3) Stage 3 chronic kidney disease: (4) Presence of stent in coronary artery in patient with coronary artery disease: PLAN: Plan 87-year-old gentleman with history of hypertension, COPD, CAD status post stents, atrial fibrillation, gout with a recent upper GI bleed thought to be secondary to ulcerations in the gastric antrum. I recommended that he get started on PPI and octreotide. His aspirin and Eliquis are on hold. He was symptomatic with hypotension on standing. Recommend transfuse 2 units of packedwhite blood cells. He will undergo an emergent upper endoscopy. He was explained alternatives, risk, benefits including outstanding bleeding, infection, sepsis, perforation, need for urgent . He will have an ASA of 3. Charges/Coding Visit Charges Inpatient E&M: 98173 Init Hosp L3 04/06/23 9933 <Electronically signed by Bert Friend DO> Cosigner Signature (if applicable): CC: Dr. Palmira العراقي MD~ Signed [facility] Work Phone: 1(646) 184-614306-05-2023 Procedure [facility] 04-06-2023 Procedure [facility]06-05-2023 History and physical note Author Dr. Velez [facility] April 06, 2023 8:16am Note Date/Time April 06, 2023 8:07a m [facility] Medical Records Department [address] [place] [address] H&P Exam - Hospitalist 04/06/23 0801 MR#: [id number] Acct: [id number] Name: JEWEL CHAVES JUNIOR Rep #:[id number] : 1935 87 From: Mary Ellen Velez MD PCP: Dr. Palmira العراقي MD Statu s:ADM IN Location: [place] [id number] HPI - General General Date of Admission: 04/06/23 Date of Service: 04/06/23 Chief Complaint: Black stools, dizzy HPI Narrative Jewel Chaves 87-year-old male history of coronary artery disease with stent placement 12 years ago, chronic bcell CLL, DMII, gout, hypertension, peptic ulcer disease on Pepcid and sucralfate. Had EGD performed several weeks ago andwas told he had lesions and presented to [facility] 04/06/2023 with black tarry stools. Is on Eliquis and was recently told to decrease his Eliquis dose. About a week and a half ago he was admitted to affiliated institution and had upper endoscopy which demonstrated several punctate ulcers in the antrum. He was discharged home and appears he is taking sucralfate twicedaily and famotidine twice daily. He says since that time he has had black stools though was on iron supplementation however 2 days ago he had 4 black bowel movements in a row and had 1 last night and has been intermittently dizzy when standing. Does have little bit of left lower abdominal discomfort that he reports is intermittent and present over the past month. Also has been sneezingbut denies any other complaints. [facility] Medical History (Updated 04/06/23 @ 08:[address] Mary Ellen Velez MD) Diabetes Hypertension Home Medications allopurinol 100 mg tablet 100 mg PO DAILY 04/06/23 [History Last Taken Unknown] amlodipine 10 mg tablet 10 mg PO DAILY 04/06/23 [History Last Taken Unknown] apixaban 2.5 mg tablet (Eliquis) 2.5 mg PO BID 04/06/23 [History Last Taken Unknown] aspirin 81 mg tablet 81 mg PO DAILY 04/06/23 [History Last Taken Unknown] atorvastatin 20 mg tablet 20 mg PO DAILY 04/06/23 [History Last Taken Unknown] famotidine 20 mg tablet 20 mg PO BID 04/06/23 [History Last Taken Unknown] ferrous sulfate 325 mg (65 mg iron) tablet 325 mg PO DAILY 04/06/23 [History Last Taken Unknown] furosemide 20 mg tablet 20 mg PO BID 04/06/23 [History Last Taken Unknown] gabapentin 300 mg capsule 300 mg PO BID 04/06/23 [History Last Taken Unknown] glimepiride 2 mg tablet 2 mg PO DAILY 04/06/23 [History Last Taken Unknown] metoprolol succinate 100 mg tablet,extended release 24 hr 100 mg PO DAILY 04/06/23 [History Last Taken Unknown] multivitamin 1 tab PO DAILY 04/06/23 [History Last Taken Unknown] sucralfate 1 gram tablet (Carafate) 1 g PO BID 04/06/23 [History Last Taken Unknown] Allergy/AdvReac Type Severity Reaction Status Date / Time metformin AdvReac Diarrhea Verified 04/06/23 05:49 Surgical History History of cholecystectomy History of hernia surgery Social History (Updated 04/06/23 @ 06:[address] Wilfrido Rodriguez MD) household members: spouse Smoking Status: Never smoker substance use type: does not use ROS ROS Narrative General: Denies fever/chills HENT: Denies headache, denies stuffy nose, denies sore throat, has been sneezing EYES: Denies changes in vision Resp: Denies cough, denies shortness of breath Cardiac: Denies chest pain GI: Some intermittent left lower quadrant discomfort, denies changes in bowel, denies nausea/vomiting : Denies changes in urination Extremity: Denies swelling MSK: Has some mild swelling bilateral lower extremities left greater than right which is chronic Neuro: Denies any numbness/tingling Heme: Denies any bleeding or bruising Skin: Denies rashes Psychiatric: No complaints voiced Vital Signs Vital Signs Vital Signs: 04/06/23 05:49 04/06/23 06:42 04/06/23 07:40 Temperature 96.4 F L 98 F Temperature Source Temporal Temporal Pulse Rate 73 70 Pulse Rate [Lying] 74 Pulse Rate [Sitting (for 1 minute prior to obtaining)] 75 Pulse Rate [Standing (for 1 minute prior to obtaining)] 74 Respiratory Rate 20 H 23 H Blood Pressure 132/57 H 122/61 H Blood Pressure [Lying] 134/59 H Blood Pressure [Sitting (for 1 minute prior to obtaining)] 130/56 H Blood Pressure [Standing (for 1 minute prior to obtaining)] 131/81 H Blood Pressure Mean 82 81 Blood Pressure Mean [Lying] 84 Blood Pressure Mean [Sitting (for 1 minute prior to obtaining)] 80 Blood Pressure Mean [Standing (for 1 minute prior to obtaining)] 97 Pulse Ox 98 94 Oxygen Delivery Method Room Air 04/06/23 07:59 Temperature Temperature Source Pulse Rate 71 Pulse Rate [Lying] Pulse Rate [Sitting (for 1 minute prior to obtaining)] Pulse Rate [Standing (for 1 minute prior to obtaining)] Respiratory Rate 22 H Blood Pressure 131/56 H Blood Pressure [Lying] Blood Pressure [Sitting (for 1 minute prior to obtaining)] Blood Pressure [Standing (for 1 minute prior to obtaining)] Blood Pressure Mean 81 Blood Pressure Mean [Lying] Blood Pressure Mean [Sitting (for 1 minute prior to obtaining)] Blood Pressure Mean [Standing (for 1 minute prior to obtaining)] Pulse Ox 96 Oxygen Delivery Method Room Air Weight Weight: 105 kg Body Mass Index (BMI) 35.2 Physical Exam Narrative General: Alert, oriented, no apparent distress HEENT: Atraumatic, normocephalic Eyes: Anicteric, normal conjunctiva, extraocular movements grossly intact Neck: Supple Respiratory: Clear to auscultation bilaterally, normal respiratory effort Cardiovascular: Regular rate and rhythm GI: Soft, minimal left lower quadrant tenderness without rebound, guarding, rigidity, Extremities: Trace to 1+ edema on right lower extremity and 1+ in left lower extremity which she reports is chronic Musculoskeletal: Moving all extremities Neuro: No overt focal neurological deficits Skin: No rashes appreciated Psych: Cooperative Results Lab / Micro Data Result Diagrams: 04/06/23 05:53 04/06/23 05:53 Labs: Laboratory Results - last 24 hr 04/06/23 05:53: WBC 2.6 L, RBC 2.06 L, Hgb 7.3 L, Hct 23.5 L, MCV 114.1 H, MCH 35.4 H, MCHC 31.1 L, RDW Std Deviation 87.9 H, RDW Coeff of Beto 21.4 H, Plt Count 102 L, MPV 11.5, Immature Gran % (Auto) 1.100 H, Neut % (Auto) 53.6, Lymph% (Auto) 36.9, [place] % (Auto) 5.7, Eos % (Auto) 2.3, Baso % (Auto) 0.4, Absolute Neuts (auto) 1.4 L, Absolute Lymphs (auto) 0.97, Nucleated RBC % 0, Anisocytosis2+ 04/06/23 05:53: Sodium 143, Potassium 4.2, Chloride 112 H, Carbon Dioxide 25.0, Anion Gap 6, BUN 43 H, Creatinine 2.25 H, Estim Creat Clear Calc 22.38, Est GFR (MDRD) Af Amer 36 L, Est GFR (MDRD) Non-Af 29 L, BUN/Creatinine Ratio 19.1, Glucose 163 H, Calcium 8.9 Micro: Microbiology 04/06/23 06:00 Stool Stool Occult Blood (SAMMY) - Final Occult Blood Positive Assessment & Plan Assessment/Plan (1) Acute GI bleeding: (2) Chronic lymphocytic leukemia of B-cell type: (3) Stage 3 chronic kidney disease: (4) Presence of stent in coronary artery in patient with coronary artery disease: PLAN: Plan #GIB, concern for upper etiology -Recent admit to [facility] hospital for acute on chronic anemia 2/2 upper GIB with endoscopy revealing several punctate ulcers in the antrum with H. pylori negative -Black tarry stools and dizzy upon standing -Hold Eliquis and aspirin -GI consulted -PPI and octreotide drips -Sucralfate -Type and cross -Hemoglobin 7.2, we will transfuse 1 unit of packed red blood cells as his threshold should be 8 given his history of coronary artery disease -Monitor H&H #Hx CAD w/ stents 12 years ago -Hold aspirin -Continue statin -Continue beta-tricia at half dose and can increase as tolerated -Patient reports being on Eliquis for his coronary artery disease and denies anyclots or history of A-fib, will attempt to review external records if available #Type 2 diabetes mellitus -Glucose checks and sliding scale insulin -Patient reports taking 22 units long-acting at bedtime, will start on slightly lower dose and titrate -Hold glimepiride #YU versus CKD unclear subtype -Creatinine 2.25 but no baseline in our system -Trend BMP -Avoid nephrotoxic agents #chronic b cell CLL -By history #Pancytopenia -No baseline available in our system, will attempt to search external records for further information #DVT ppx: SCDs Mary Ellen Velez MD Time spent in the patient's overall evaluation,decision-making process, review of diagnostic data, adjustment of management, discussion with other providers, nursing nursing and ancillary staff involved in patient's care documentation, 60minutes Charges/Coding Visit Charges Inpatient E&M: 39200 Init Hosp L2 04/06/23 0816 <Electronically signed by Mary Ellen Velez MD> Cosigner Signature (if applicable): CC: Dr. Palmira العراقي MD; Dr. Mary Ellen Velez MD~ Signed [facility] Work Phone: [phone]) 650-383806-05-[address] Rodriguez [facility] April 06, 2023 7:35am Note Date/Time April 06, 2023 6:34a m [facility] Medical Records Department [address] [place] [address] Emergency Department Summary 04/06/23 MR#: [id number] Acct: [id number] Name: JEWEL CHAVES JUNIOR Rep #:[id number] : 1935 87 From: Wilfrido Rodrigeuz MD PCP: Dr. Palmira العراقي MD Statu s:REG ER Location: ED HPI HPI - GI History of Present Illness Chief Complaint: GI Bleed Detail of Chief Complaint: Black stool Informant: patient and spouse/S.O. Abdominal Pain/Flank Pain Onset: Today and Yesterday Context: Sudden Onset Timing: Intermittent Quality: Aching Location: Epigastric Current Severity: Gone Maximum Severity: Mild Worsened by: Nothing Relieved by: Nothing Nausea/Vomiting/Emesis GI Symptom: Positive for Nausea; Negative for Vomiting Diarrhea/Melena/Hematochezia GI Symptom: Positive for Melena; Negative for Diarrhea or Hematochezia Onset: Today and Yesterday Stool Quality: Positive for Loose and Black; Negative for Maroon or BRB per rectum Associated Symptoms Associated Symptoms: Negative for Dysuria, Frequency, Hematuria or Urgency LMP: Not applicable Narrative Narrative: Patient is an 80 old male on Adriana went for coronary disease. He had several stents placed 12 years ago. He also has history of gout, hypertension, peptic ulcer disease. He is on Pepcid. He had an EGD performed by GI specialist at [facility] proximal weeks ago and was told he has lesions. He is also on sucralfate. He presents because of black stool. He denies orthostatic symptomstoday. He was lightheaded when he did his bowel prep. He denies chest pain, dyspnea, dyspnea on exertion. He denies orthopnea. He denies intolerance to food. He denies bruising easily. Recently he was told to decrease his Eliquis dose. He has not noted blood in his urine. He does not bruise easily. He denies bleeding from his gums. Prior similar symptoms: No Recent Illness/Hospitalization: Yes [facility] Medical History Diabetes Hypertension Home Medications allopurinol 100 mg tablet 100 mg PO DAILY 04/06/23 [History Last Taken Unknown] amlodipine 10 mg tablet 10 mg PO DAILY 04/06/23 [History Last Taken Unknown] apixaban 2.5 mg tablet (Eliquis) 2.5 mg PO BID 04/06/23 [History Last Taken Unknown] aspirin 81 mg tablet 81 mg PO DAILY 04/06/23 [History Last Taken Unknown] atorvastatin 20 mg tablet 20 mg PO DAILY 04/06/23 [History Last Taken Unknown] famotidine 20 mg tablet 20 mg PO BID 04/06/23 [History Last Taken Unknown] ferrous sulfate 325 mg (65 mg iron) tablet 325 mg PO DAILY 04/06/23 [History Last Taken Unknown] furosemide 20 mg tablet 20 mg PO BID 04/06/23 [History Last Taken Unknown] gabapentin 300 mg capsule 300 mg PO BID 04/06/23 [History Last Taken Unknown] glimepiride 2 mg tablet 2 mg PO DAILY 04/06/23 [History Last Taken Unknown] metoprolol succinate 100 mg tablet,extended release 24 hr 100 mg PO DAILY 04/06/23 [History Last Taken Unknown] multivitamin 1 tab PO DAILY 04/06/23 [History Last Taken Unknown] sucralfate 1 gram tablet (Carafate) 1 g PO BID 04/06/23 [History Last Taken Unknown] Allergy/AdvReac Type Severity Reaction Status Date / Time metformin AdvReac Diarrhea Verified 04/06/23 05:49 Surgical History History of cholecystectomy History of hernia surgery Social History (Updated 04/06/23 @ 06:[address] Wilfrido Rodriguez MD) household members: spouse Smoking Status: Never smoker substance use type: does not use ROS ROS ED Constitutional Constitutional ED: Denies chills, fever(s), subjective or sweats ENT ENT ED: Denies ear pain, rhinorrhea or sore throat Cardiovascular Cardiovascular: Denies chest pain, orthopnea, palpitations or paroxysmal nocturnal dyspnea Respiratory/Chest Respiratory/Chest: Denies cough, dyspnea, dyspnea on exertion, orthopnea or paroxysmal nocturnal dyspnea Gastrointestinal Gastrointestinal: Reports abdominal pain and melena; Denies constipation, diarrhea, nausea or vomiting Genitourinary Genitourinary ED: Denies dysuria, hematuria or urinary frequency Musculoskeletal Musculoskeletal: Denies arthralgias, back pain or myalgias Integumentary Denies rash Neurologic Neurologic: Denies paresthesias or weakness Endocrine Endocrinology: Denies polydipsia or polyuria Hematologic/Lymphatic Hematologic/Lymphatic: Denies easy bleeding or easy bruising EXAM Physical Exam Const Vital Signs: 04/06/23 05:49 04/06/23 06:42 Temperature 96.4 F L Temperature Source Temporal Pulse Rate 73 Pulse Rate [Lying] 74 Pulse Rate [Sitting (for 1 minute prior to obtaining)] 75 Pulse Rate [Standing (for 1 minute prior to obtaining)] 74 Respiratory Rate 20 H Blood Pressure 132/57 H Blood Pressure [Lying] 134/59 H Blood Pressure [Sitting (for 1 minute prior to obtaining)] 130/56 H Blood Pressure [Standing (for 1 minute prior to obtaining)] 131/81 H Blood Pressure Mean 82 Blood Pressure Mean [Lying] 84 Blood Pressure Mean [Sitting (for 1 minute prior to obtaining)] 80 Blood Pressure Mean [Standing (for 1 minute prior to obtaining)] 97 Pulse Ox 98 Oxygen Delivery Method Room Air Positive well nourished, well developed and obese General Appearance ED: well developed, NAD and pallor Nutritional Appearance: obese HEENT Reports TM's clear and moist mucous membranes normocephalic and atraumatic Tympanic Membrane ED: Yes TM's clear Eyes PERRL and EOMs intact bilaterally General Eye ED: Yes pale conjunctiva; Negative for scleral icterus Neck no lymphadenopathy, supple and no JVD Resp normal respiratory effort Effort and Inspection: respiratory distress Cardio regular rate, regular rhythm, S1 normal heart sound, S2 normal heart sound and no murmurs GI non-tender and no masses; Negative for non-distended GI Narrative: There is no fissures, fistulas hemorrhoid noted on rectal exam. Stool is blackish green and does have an odor to it. Inspection: abdominal distention Auscultation: hypoactive bowel sounds Palpation: soft; Negative for tender, guarding, rigid, hepatomegaly or splenomegaly Back/Spine no CVA tenderness Extremity full ROM General Extremety ED: Yes edema; Negative for tenderness General Extremity: edema Neuro CN's II-XII intact bilaterally and moves all extremities Sensorium / Orientation: alert Psych mental status grossly normal Skin no wounds General Skin Exam: pallor; Negative for jaundice Lesions: no lesions Rashes: no rashes MDM MDM MDM Narrative Medical decision making narrative: With history of recent EGD with lesions blackish green stool this may represent GI bleed. The black his grandson may have been due to the fact that he is on iron. Will obtain CBC to assess H&H compared to prior. BMP to assess BUN to creatinine ratio which would be elevated, greater than 20-1 if due to GI bleed or dehydration. Since he is on Eliquis coags were not obtained. Stool was sent for occult blood. She was recently admitted to [facility] for acute on chronic anemia. There was concern this was due to GI bleed. Upper endoscopy revealed several punctate ulcers throughout the antrum. H. pylori biopsies were negative. 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 Hismost recent hemoglobin was 7.7. He denied at the time of this author report black stool or blood in his stool. He has multiple other medical problems whichshe did not list initially either. Patient did require transfusion of 2 units of blood. Since his hemoglobin is low for than his hemoglobin prior to transfusion Dr. Kirby was made aware of the patient. He will need hospitalization. Suspect observation status with serial H&H to determine if he is blood count is falling. He is presently coagulant. This may need to be discontinued temporarily. History & Record Review Additional record(s) reviewed:: Prior inpatient record and Prior outpatient record Lab Data Attestation: I reviewed the patient's lab results. 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 Hemoglobin today is 7.3 with Alaniz crit of 23.5. MCV is 110. White count is 2.6 thousand with a frontal. BUN and anion elevated for 3 and 2.25 with a BUN to creatinine ratio of 19:1. Coags were not obtained since he is on Eliquis and results are meaningless. Based on records from outside facility patient does have stage III chronic kidney disease. Will type and screen patient at this point. Labs: Laboratory Results - last 24 hr 04/06/23 04/06/23 05:53 05:53 WBC 2.6 L RBC 2.06 L Hgb 7.3 L Hct 23.5 L MCV 114.1 H MCH 35.4 H MCHC 31.1 L RDW Std Deviation 87.9 H RDW Coeff of Beto 21.4 H Plt Count 102 L MPV 11.5 Immature Gran % (Auto) 1.100 H Neut % (Auto) 53.6 Lymph % (Auto) 36.9 [place] % (Auto) 5.7 Eos % (Auto) 2.3 Baso % (Auto) 0.4 Absolute Neuts (auto) 1.4 L Absolute Lymphs (auto) 0.97 Nucleated RBC % 0 Anisocytosis 2+ Sodium 143 Potassium 4.2 Chloride 112 H Carbon Dioxide 25.0 Anion Gap 6 BUN 43 H Creatinine 2.25 H Estim Creat Clear Calc 22.38 Est GFR (MDRD) Af Amer 36 L Est GFR (MDRD) Non-Af 29 L BUN/Creatinine Ratio 19.1 Glucose 163 H Calcium 8.9 Management Discussion w/another healthcare provider: Hospitalist and Unit Receptionist (Dr. Kirbyrequested Protonix IV push, drip and octreotide drip. Patient be admitted to the hospitalist service with consult to him.) Discharge Plan Dx/Rx/DC Orders Clinical Impression: Acute GI bleeding, Hypercholesterolemia, Presence of stent in coronary artery in patient with coronary artery disease, Anemia due to acute blood loss, Chroniclymphocytic leukemia of B-cell type, Stage 3 chronic kidney disease, Anticoagulant long-term use Disposition Disposition: Acute Care Hospital [facility] What to do if you have Problems For any increased pain, shortness of breath, bleeding, nausea or vomiting, chestpain, or any unexpected problems, contact your Primary Care Provider. Call [facility] ([phone]) or report to the closest Emergency Room. Call 911 if necessary. 04/06/23 0735 <Electronically signed by Wilfrido Rodriguez MD> Cosigner Signature (if applicable): CC: Dr. Palmira العراقي MD ~ Signed [facility] Work Phone: 1(125) 840-157905-19-2023 NoteSend Summary: Discharge Summary Providers: Provider RoleProvider Name Reshma Rolon Dale R Nurse Karin Coronel Nurse Marlen Jameson Katherine Anne AttendingRaza, Hafiz Note Recipients: none Discharge: Summary: Admission Date: .16-Mar-2023 14:10:00 Discharge Date: 20-Mar-2023 Attending Physician at Discharge: Lee Torres Admission Reason: weakness Final Discharge Diagnoses: anemia, generalized weakness Procedures: Shank Procedure Date: 03/18/2023 1:53 PM Date of : 1935 Admit Type: Inpatient Site: [facility] Ethnicity: Not or Race: White Attending MD: Wesly Campos DO, March 18, 2023 Condition at Discharge: Fair Disposition at Discharge: .Home Vital Signs: T PRBPMAPSpO2 [id number]/874729% Date/Time03/20 7: 7: 7: 7:325 7: 7:32 Range(36C - 36.5C ) (76 - 94 ) (16 - 18 ) (118 - 158 )/ (65 - 77 ) (91 - 91 ) (93% - 98% ) As of 19-Mar-2023 08:00:00, patient is on 1 L/min of oxygen via nasal cannula. Date: Weight/Scale Type:Height: 16-Mar-2023 21:74485.9 kg / qcs768.5 cm Physical Exam: General Appearance: AAO x 3, not in acute distress Skin: skin color pink, warm, and dry; no suspicious rashes or lesions Eyes : PERRL, EOM's intact ENT: mucous membranes pink and moist Neck: normocephalic Respiratory: lungs clear to auscultation anteriorly; no wheezing, rhonchi, or crackles. on room air Heart: irregular rate and rhythm. Abdomen: Nondistended, positive bowel sounds x4, soft, nontender Extremities: edema B/L ankles. lt>rt Peripheral pulses: normal x4 extremities Neuro: alert, coherent and conversant, no focal motor deficits Hospital Course: Patient presented to [facility] ED on March 16 with complaints of generalized weakness, black stools, slight lightheadedness and dizziness with standing and minimal dyspnea on ambulation. Significant labs showed hemoglobin 6.7, platelets 106, BUN 51, and creatinine 2.08 serum iron was 290 CT abdomen pelvis with no acute process and showing interval resolution of bibasilar pneumonia and BPH. Progressive bony abnormality involving left posterior ninth rib may be related to prior trauma with atypical healing response for Paget's disease in appropriate clinical setting although nonspecific. Chest x-ray showed no focal infiltrate or pneumothorax. Was admitted with a working diagnosis of generalized weakness and symptomatic anemia. Patient was seen by Dr. Campos. patient received a total of 2 units packed red blood cells and admission. EGD was done and found 3 erosions in cardia. Patient in stable condition for discharge home. Will need follow-up with Dr. Campos in 2 weeks. Resume home meds. E scribed Carafate a day with meals to [facility]. To follow-up with PCP in 1 week. Patient follows with hematology and to follow as needed Discharge Information: and Continuing Care: Lab Results - Pending: Surgical Pathology Drawn at 18-Mar-2023 14:10:00 Radiology Results - Pending: None Discharge Instructions: Activity: activity as tolerated. May shower.. May drive.. Nutrition/Diet: regular Diet Consistency/Texture: regular / thin Additional Orders: Additional Instructions: E scribed Carafate and take twice a day Discharge home Resume home meds E scribed Carafate and take twice a day follow -Up with PCP in 1 week Follow-up with Dr. Campos in 2 weeks Thank you for allowing [facility] to participate in your care. Return to the emergency room if symptoms worsen Follow Up Appointments: Follow-Up Appointment 01: Physician/Dept/Service: follow-up PCP Dr. العراقي Reason for Referral: hospitalization Call to Schedule in: 1 week Location: [address] Follow-Up Appointment 02: Physician/Dept/Service: follow-up with Dr. Campos Reason for Referral: hospitalization Call to Schedule in: 2 weeks Location: [address] [facility] Discharge Medications: Home Medication primidone 50 mg tablet - 150 milligram(s) orally 2 times a day Cholestyramine Light 4 gram powder for susp in a packet - 1 packet(s) orally once a day (at bedtime) - Mix with 6 ounces of noncarbonated beverage and drink by mouth amLODIPine 10 mg oral tablet - 1 tab(s) orally once a day furosemide 20 mg oral tablet - 1 tab(s) orally 2 times a day gabapentin 300 mg oral capsule - 1 cap(s) orally every 12 hours glimepiride 2 mg oral tablet - 1 tab(s) orally once a day metoprolol succinate ER 100 mg tablet,extended release 24 hr - 1 tab(s) orally once a day (in the evening) ferrous sulfate 325 mg (65 mg elemental iron) oral tablet - 1 tab(s) orally once a day Vitamin D3 1000 intl units (25 mcg) oral tablet - 1 tab(s) orally once a day sucralfate 1 g oral table (more content not included)...[place] [id number] NoteHistory & Physical Reviewed: I have reviewed the History and Physical dated: 17-Mar-2023 History and Physical reviewed and relevant findings noted. Patient examined to review pertinent physical findings.: No significant changes Home Medications Reviewed: no changes noted Allergies Reviewed: no changes noted ERAS (Enhanced Recovery After Surgery): ERAS Patient: no Consent: COVID-19 Consent: COVID-19 Risk ConsentSurgeon has reviewed rosen risks related to the risk of julia COVID-19 and if they contract COVID-19 what the risks are. Electronic Signatures: Wesly Campos () (Signed 18-Mar-2023 13:03) Authored: History & Physical Reviewed, ERAS, Consent, Note Completion Last Updated: 18-Mar-2023 13:03 by Wesly Campos ()[facility] 03-16-2023 NoteHistory of Present Illness: HPI: JEWEL CHAVES is a 87 year old Male presented with 3 days of generalized weakness with black stools and slight lightheadedness or dizziness upon getting up standing and minimal dyspnea on ambulation but no syncope or loss of consciousness or fall or trauma. Patient denies any chest pain or significant shortness of breath to me at this time. Hemoglobin 6.7 but no active bleeding and getting 1 unit of blood in ER. He denies any palpitations or leg swelling. He has history of A-fib likely paroxysmal as well coronary artery disease. He denies any headache or focal weakness. No appetite change or weight loss although family history of cancer per the patient. He has occasional constipation and complaining of mild left lower quadrant pain. CT abdominal pelvis with no acute process and showing interval resolution of bibasilar pneumonia and BPH. Progressive bony abnormality involving left posterior ninth rib may be related to prior trauma with atypical healing response or Paget's disease in appropriate clinical setting although nonspecific. 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 No other complaints Past medical history Coronary artery disease Hypertension PE History of A-fib likely paroxysmal on anticoagulation with Eliquis Anemia Chronic kidney disease Pancytopenia and myelodysplastic syndrome Reflux gastritis Diabetes mellitus type 2 Sleep apnea on CPAP History of [place] CABG Social history Denies smoking alcohol drugs Family history positive for some cancer per the patient Review of systems All 12 point review systems negative except HPI Comorbidities: Comorbidites: Comorbid Conditionshypertension Social History: Social History: Smoking Statusnever smoker (1) Alcohol Usedenies(1) Drug Usedenies (1) Allergies: No Known Allergies: Intolerances: metformin: Diarrhea Medications Prior to Admission: Admission Medication Reconciliation has not been completed for this patient. Objective: Objective Information: T PRBPMAPSpO2 [id number]/6595% Date/Time03/16 14: 19:175 19: 19: 19:17 Range(36.4C - 36.4C ) (74 - 84 ) (16 - 18 ) (119 - 151 )/ (56 - 77 ) (94% - 98% ) Pain reported at 03/16 16:00: 0 = None Physical Exam by System: Constitutional: Well developed, awake/alert/oriented x3, no distress, alert and cooperative Eyes: PERRL, EOMI, clear sclera ENMT: mucous membranes moist, no apparent injury, no lesions seen Head/Neck: Neck supple, no apparent injury, thyroid without mass or tenderness, No JVD, trachea midline, no bruits Respiratory/Thorax: Patent airways, CTAB, normal breath sounds with good chest expansion, thorax symmetric Cardiovascular: Regular, rate and rhythm, no murmurs, 2+ equal pulses of the extremities, normal S 1and S 2 Gastrointestinal: Nondistended, soft, non-tender, no rebound tenderness or guarding, no masses palpable, no organomegaly, +BS, no bruits Musculoskeletal: ROM intact, no joint swelling, normal strength Extremities: normal extremities, no cyanosis edema, contusions or wounds, no clubbing Neurological: alert and oriented x3, intact senses, motor, response and reflexes, normal strength Lymphatic: No significant lymphadenopathy Psychological: Appropriate mood and behavior Skin: Warm and dry, no lesions, no rashes Medications: Medications: Continuous Medications 1. Lactated Ringers Infusion: 1000 mL IntraVenous Scheduled Medications 1. Atorvastatin: 20 mg Oral Daily 2. Cholecalciferol (Vitamin D3): 1000 International Unit(s) Oral Daily 3. Cholestyramine Light: 4 gram(s) Oral Daily 4. Cyanocobalamin: 100 microgram(s) Oral Daily 5. Ferrous Sulfate: 325 mg Oral Daily 6. Gabapentin: 300 mg Oral Every 12 Hours 7. Pantoprazole Injectable: 40 mg IntraVenous Push Every 24 Hours 8. Primidone - PEDS: 150 mg Oral 2 Times a Day PRN Medications 1. Acetaminophen: 650 mg Oral Every 4 Hours 2. guaiFENesin Extended Release: 600 mg Oral Every 12 Hours 3. Ondansetron Injectable: 4 mg IntraVenous Push Every 4 Hours 4. Sodium Chloride 0.9% Injectable Flush: 10 mL IntraVenous Flush Every 8 Hours and as Needed 5. Sore Throat Lozenge: 1 lozenge(s) Oral Every 2 Hours Recent Lab Results: Results: CBC: 03/16/2023 15:30 \ Hgb / \ 6.7 L / WBC Plt 2.6 L 106 L / Hct \ / 20.8 L \ RBC: 1.81 L MCV: 115 H Neutrophil %: 54.4 CMP: 03/16/2023 15:31 NA+ Cl- BUN / 144 109 H 48 H / Glucose 154 H K+ HCO3- Creat \ 4.3 28 1.83 H \ \ T Bili / \ 0.7 / AST x ---- x ALT 34 x ---- x 27 / Alk P \ / 65 \ Calcium : 9.7 Anion Gap : 11 Albumi (more content not included)...[place] [address]-12-2023 History of Present illness Narrative* Robert Mortensen Jr., DPM - 03/13/2023 11:42 AM EDT Nail care Patient is a pleasant 87-year-old gentleman who comes in today for at risk nail care. His diabetes is managed by primary including Jae Gannon, A1c unknown. Thinks it is 7% though but he is justnot sure. Physical Vascular: DP pulses are palpable 2 out of 4 bilaterally. PT pulses are nonpalpable bilaterally. CFTis delayed with mild foot and ankle edema pitting in nature +1. Hair growth is absent bilaterally. Skin is shiny atrophic dysvascular. Nails [address] [place] [address] right foot are markedly elongated thickened mycotic crumbling and dystrophic. Neuro: Sharp dull is blunted Babinski's is blunted. Musculoskeletal: Muscle strength is 5/5 with fair tone. Can easily wiggle toes without any clickingor catching. Derm: Mild hyperkeratosis plantar medial heel right and left no flaking or loss no deep nodules. Assessment and plan: Patient is a pleasant diabetic male with age and diabetic induced peripheral arterial disease and onychomycosis to 10 nails. -He does qualify for nail care given his elevated risk with arterial disease. -Procedure: Sharply debrided and debulk in height and length 10 onychomycotic nails with a sharp pair of nail nippers consistent with a q8 modifier -Procedure: Sharply debrided in height and w\idth 2 callus lesions with a 15 blade. Follow-up in 3 months for foot nail care. documented in this [id number] Instructions* Patient Instructions* Sangeetha Thomas, OD - 03/09/2023 3:33 PM EDT ASSESSMENT/PLAN: 1. Type 2 diabetes mellitus without retinopathy (HCC) - ICD9: 250.00, ICD10: E11.9 (primary diagnosis) Examination shows no ocular diabetic complications today. Discussed need for optimal diabetes control to minimize chance of ocular complications. Advise patient to immediately report worsening in status or additional symptoms. Continue yearly dilated eye examinations. 2. Dry eyes, bilateral - ICD9: 375.15, ICD10: H04.123 Recommended the use of artificial tears four times per day to maintain good vision and comfort. Discussed contacting the office if there is a change in comfort or vision. Also encouraged the use of Refresh PM at bedtime due to the CPAP mask. Discussed possible lid referral . 3. Vitreous floaters of both eyes - ICD9: 379.24, ICD10: H43.393 Vitreal floaters stable both eyes. Retinas flat and intact with no apparent retinal tear or traction. Discussed symptoms of retinal tear/detachment and if seen patient will return to clinic without delay. 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 [facility] History of Present illness Narrative* Sangeetha Thomas, OD - 03/09/2023 3:30 PM EDT ASSESSMENT/PLAN: 1. Type 2 diabetes mellitus without retinopathy (HCC) - ICD9: 250.00, ICD10: E11.9 (primary diagnosis) Examination shows no ocular diabetic complications today. Discussed need for optimal diabetes control to minimize chance of ocular complications. Advise patient to immediately report worsening in status or additional symptoms. Continue yearly dilated eye examinations. 2. Dry eyes, bilateral - ICD9: 375.15, ICD10: H04.123 Recommended the use of artificial tears four times per day to maintain good vision and comfort. Discussed contacting the office if there is a change in comfort or vision. Also encouraged the use of Refresh PM at bedtime due to the CPAP mask. Discussed possible lid referral . 3. Vitreous floaters of both eyes - ICD9: 379.24, ICD10: H43.393 Vitreal floaters stable both eyes. Retinas flat and intact with no apparent retinal tear or traction. Discussed symptoms of retinal tear/detachment and if seen patient will return to clinic without delay. 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 Sangeetha Thomas, OD I have confirmed and edited as necessary the relevant ophthalmic history, ROS, and the neuro exam findings as obtained by others. [facility] this [facility] NoteClinic Note: Education Assessment: Learning BarriersNo barriers TaughtPatient Primary Language of PatientEnglish Primary Language of Rosen LearnerEnglish Name of Rosen Learner & Relationshipwife present Clinic Visit: Topic(s): Clinic VisitFollow-up plan MethodVerbal, Teach-Back, Handout EvaluationTeaches back Nursing Note: Nursing Notept set for labs at the hosp prior to next visit. rtc for f/u with pretzel packer on 05/18 at 9am Electronic Signatures: Maris KimRN) (Signed 16-Feb-2023 09:59) Authored: Education Assessment, Clinic Visit, Nursing Note Last Updated: 16-Feb-2023 09:59 by Maris Kim (RN)[facility]04-12-2023 Telephone encounter Note* Telephone Encounter - Swetha Huynh LPN - 02/11/2023 3:10 PM EDT Called and informed patient that Dr. Can filled the script. I also told him that Dr. Can recommended that he start tapering off the primidone if he does not see any significant change. Due to it making the blood thinner less effective. [id number] Miscellaneous Notes* Telephone Encounter - Swetha Huynh LPN - 02/11/2023 3:10 PM EDT Called and informed patient that Dr. Can filled the script. I also told him that Dr. Can recommended that he start tapering off the primidone if he does not see any significant change. Due to it making the blood thinner less effective. documented in this [id number] History of Present illness Narrative* Robert Mortensen Jr., DPM - 12/19/2022 11:20 AM EST Nail care Patient is a pleasant 87-year-old gentleman who comes in today for at risk nail care. His diabetes is managed by primary including Jae Gannon, A1c unknown. Thinks it is 7% though but he is justnot sure. Physical Vascular: DP pulses are palpable 2 out of 4 bilaterally. PT pulses are nonpalpable bilaterally. CFTis delayed with mild foot and ankle edema pitting in nature +1. Hair growth is absent bilaterally. Skin is shiny atrophic dysvascular. Nails 77375 [place] 47266 right foot are markedly elongated thickened mycotic crumbling and dystrophic. Neuro: Sharp dull is blunted Babinski's is blunted. Musculoskeletal: Muscle strength is 5/5 with fair tone. Can easily wiggle toes without any clickingor catching. Derm: Mild hyperkeratosis plantar medial heel right and left no flaking or loss no deep nodules. Assessment and plan: Patient is a pleasant diabetic male with age and diabetic induced peripheral arterial disease and onychomycosis to 10 nails. -He does qualify for nail care given his elevated risk with arterial disease. -Procedure: Sharply debrided and debulk in height and length 10 onychomycotic nails with a sharp pair of nail nippers consistent with a q8 modifier -Procedure: Sharply debrided in height and w\idth 2 callus lesions with a 15 blade. Follow-up in 3 months for foot nail care. documented in this [id number] NoteClinic Note: Education Assessment: Learning BarriersNo barriers TaughtPatient Primary Language of PatientEnglish Primary Language of Rsoen LearnerEnglish Name of Rosen Learner & Relationshipwife present Clinic Visit: Topic(s): Clinic VisitFollow-up plan MethodVerbal, Teach-Back, Handout EvaluationTeaches back Nursing Note: Nursing Notept set up for 3 months. labs at the hosp 02/09. rtc 02/12 at 9am for md visit Electronic Signatures: Maris Kim) (Signed 14-Nov-2022 11:37) Authored: Education Assessment, Clinic Visit, Nursing Note Last Updated: 14-Nov-2022 11:37 by Maris Kim)[facility]12-01-2022 NoteClinic Note: Education Assessment: Learning BarriersNo barriers TaughtPatient Primary Language of PatientEnglish Name of Rosen Learner & Relationshipwife present Clinic Visit: Topic(s): Clinic VisitFollow-up plan MethodVerbal, Teach-Back, Handout EvaluationTeaches back Nursing Note: Nursing NoteLABS 10/29 AT HOSP. RTC 10/30 1130 FOR MD VISIT- MAY START ON ARANESP Electronic Signatures: Maris Kim) (Signed 02-Oct-2022 11:32) Authored: Education Assessment, Clinic Visit, Nursing Note Last Updated: 02-Oct-2022 11:32 by Maris Kim (RN)[facility]11-21-2022 NotePre-procedure Verification and Time Out: Pre-Procedure Verification and Time Out: Procedure Locationprocedure area HUDDLE - Pre-procedure Verificationcompleted TIME OUT - Final Verificationcompleted immediately prior to procedure start DEBRIEFcompleted General Information: Anesthesia Critical Care: Non-Anesthesia Post-Procedure Diagnosis: left iliac marrow biopsy and aspiration Procedure Name: left iliac marrow biopsy and aspiration Findings: grossly normal anatomy Procedure performed by: me Grant Administrator(s): none Estimated Blood Loss (mL): none Specimen: yes Informed Consent: written consent obtained Procedure Details: Procedure Details: left iliac marrow biopsy and aspiration Tolerance: good Prep: Patient Position: prone Site Prep: with chlorhexidine, draped, usual sterile procedure followed Anesthesia: Anesthesia: local, intravenous Fentanyl (mcg): 50 microgram(s) Versed (mg): 1 mg Attestation: Note Completion: Attending AttestationI performed the procedure without a resident Electronic Signatures: Margarita Tolbert) (Signed 22-Sep-2022 11:53) Authored: Pre-procedure Verification and Time Out, General Information, Procedure Details, Prep/Sedation, Note Completion Last Updated: 22-Sep-2022 11:53 by Margarita Tolbert)[facility] 08-27-2022 NoteClinic Note: Education Assessment: Learning BarriersNo barriers TaughtPatient Primary Language of PatientEnglish Name of Rosen Learner & Relationshipwife present Clinic Visit: Topic(s): Clinic VisitFollow-up plan MethodVerbal, Teach-Back, Handout EvaluationTeaches back Nursing Note: Nursing Notept referred to [facility] they will call pt to schedule. f/u made with Dr Parra to go over those results on 09/22 at 3pm Electronic Signatures: Maris Kim) (Signed 27-Aug-2022 14:57) Authored: Education Assessment, Clinic Visit, Nursing Note Last Updated: 27-Aug-2022 14:57 by Maris KimRN)[facility]08-26-2022 History of Present illness Narrative* He is here for follow-up secondary to chronic kidney disease * He had blood work drawn on June 27 which showed a creatinine of 2.08 and normal electrolytes. Hismagnesium and phosphorus as well as parathyroid hormone are all within normal limits * His uric acid is elevated at 11.0 * His urine shows positive glucose and his protein creatinine ratio is 0.25 which is quite stable * His medications are reviewed and include amlodipine, aspirin, a statin, Eliquis, Pepcid, Lasix, gabapentin, glimepiride, lisinopril metoprolol vitamin D. * His blood pressure today is perfect at 116/62 * Hen is feeling well. * No major complaints. * Minimal Swelling. [facility] Vishal [facility] DO Work Phone: 1(458) 740-135808-26-2022 History of Present illness Narrative* Robert Mortensen Jr., DPM - 06/27/2022 11:52 AM EDT Nail care Patient is a pleasant 85-year-old gentleman who comes in today for at risk nail care. His diabetes is managed by primary including Jae Gannon, A1c unknown. Thinks it is 7% though but he is justnot sure. Physical Vascular: DP pulses are palpable 2 out of 4 bilaterally. PT pulses are nonpalpable bilaterally. CFTis delayed with mild foot and ankle edema pitting in nature +1. Hair growth is absent bilaterally. Skin is shiny atrophic dysvascular. [place] 60678 [place] [address] right foot are markedly elongated thickened mycotic crumbling and dystrophic. Neuro: Sharp dull is blunted Babinski's is blunted. Musculoskeletal: Muscle strength is 5/5 with fair tone. Can easily wiggle toes without any clickingor catching. Derm: Mild hyperkeratosis plantar medial heel right and left no flaking or loss no deep nodules. Assessment and plan: Patient is a pleasant diabetic male with age and diabetic induced peripheral arterial disease and onychomycosis to 10 nails. -He does qualify for nail care given his elevated risk with arterial disease. -Procedure: Sharply debrided and debulk in height and length 10 onychomycotic nails with a sharp pair of nail nippers consistent with a q8 modifier Follow-up in 3 months for foot nail care. documented in this [id number] History of Present illness Narrative* Vianney Judge MD - 06/16/2022 9:40 AM EDT General Cardiology Returning Patient Clinic Visit [facility] 06/16/2022 Vianney Judge MD [address] [facility] [id number] [facility], physician's office 06/16/2022 Patient: Jewel Chaves Date of : 1935 (86 y.o.) Referring Provider: No ref. provider found PCP: Jae Gannon CNP Chief Complaint: Follow-up (Previous Davakis/ Fatigue) Date of Service: 06/16/2022 History of Present Illness: Jewel Chaves is a 86 y.o. man with a past medical history of coronary artery disease, hypertension,dyslipidemia who presents today for follow-up. He is a poor historian, his is with him. His largest complaints today are fatigue following COVID infection. He has obstructive sleep apnea, compliant with his CPAP, however his CPAP mask is causing some irritation to his eye. We reviewed his medication list today, he unfortunately is not sure exactly why he is on certain medications including his Eliquis. Also notes that he has some diarrhea. Review of Systems: All systems were reviewed and noted to be negative unless otherwise stated in HPI. Past Medical History: Diagnosis Date Acid reflux Acute pancreatitis Angina pectoris (HCC) Ankle sprain Arthritis Artificial joint pain (HCC) BPH with obstruction/lower urinary tract symptoms CAD (coronary artery disease) Capsulitis Cataract COVID-19 Dumping syndrome Edema pancreatic Edema of foot Foot cramps Gallstone Heart attack (HCC) 04/26/2009 Hyperlipidemia Hypertension Liver disease Loss of weight Lower extremity edema 1+ Nocturia Obesity OM (onychomycosis) PAOD (peripheral arterial occlusive disease) (HCC) Pulmonary embolism (HCC) Swollen feet Synovitis and tenosynovitis TP (tinea pedis) Umbilical hernia Varicose vein of leg Varicosities venous Past Surgical History: Procedure Laterality Date CARDIAC CATHETERIZATION 05/03/2009 NO EF ASSESSED CHOLECYSTECTOMY CORONARY ANGIOPLASTY WITH STENT PLACEMENT 05/03/2009 KERMIT of RCA, KERMIT RIGHT PDA, CORONARY ANGIOPLASTY WITH STENT PLACEMENT 05/01/2009 KERMIT LAD HERNIA REPAIR 1988 Inguinal Family History Problem Relation Age of Onset Cancer Mother Liver disease Father Lung cancer Brother Social History Tobacco Use Smoking Status Never Smokeless Tobacco Never Allergies: Metformin All of the above information has been reviewed at today's visit and modified if necessary. Home Medications: Current Outpatient Medications: amLODIPine (NORVASC) 10 MG tablet, Take 10 mg by mouth every morning ., Disp: , Rfl: apixaban (ELIQUIS) 5 mg Tab, Take 1 (one) tablet (5 mg total) by mouth 2 (two) times a day ., Disp:60 tablet, Rfl: 11 aspirin 81 MG EC tablet, Chew 81 mg daily., Disp: , Rfl: cholecalciferol, vitamin D3, (VITAMIN D3 ORAL), Take 1 tablet by mouth daily ., Disp: , Rfl: cyanocobalamin, vitamin B-12, (VITAMIN B12 ORAL), Take 1 tablet by mouth daily ., Disp: , Rfl: famotidine (PEPCID) 20 MG tablet, Take 20 mg by mouth 2 (two) times a day ., Disp: , Rfl: ferrous sulfate (IRON ORAL), Take by mouth ., Disp: , Rfl: furosemide (LASIX) 20 MG tablet, Take 1 (one) tablet (20 mg total) by mouth 2 (two) times a day ., Disp: , Rfl: 3 gabapentin (NEURONTIN) 300 MG capsule, Take 1 (one) capsule (300 mg total) by mouth 2 (two) times aday ., Disp: , Rfl: glimepiride (AMARYL) 1 MG tablet, Take 1 mg by mouth every morning before breakfast., Disp: , Rfl: glucosamine/msm/chondroit/C/Mn (FLEXI JOINT ORAL), Take by mouth ., Disp: , Rfl: metoprolol succinate (TOPROL XL) 100 MG 24 hr tablet, Take 1 (one) tablet (100 mg total) by mouth daily . (Patient taking differently: Take 1 (one) tablet (100 mg total) by mouth nightly .), Disp: 90tablet, Rfl: 3 multivitamin with minerals tablet, Take 1 tablet by mouth daily ., Disp: , Rfl: nizatidine (AXID) 150 MG capsule, Take 150 mg by mouth 2 (two) times a day ., Disp: , Rfl: primidone (MYSOLINE) 50 MG tablet, Take 150 mg by mouth 2 (two) times a day ., Disp: , Rfl: 11 propylene glycol (SYSTANE BALANCE OPHT), Apply to eye ., Disp: , Rfl: atorvastatin (Lipitor) 20 MG tablet, Take 2 (two) tablets (40 mg total) by mouth daily ., Disp: 180tablet, Rfl: 3 nitroGLYCERIN (NITROSTAT) 0.4 MG SL tablet, Place 1 (one) tablet (0.4 mg total) under the tongue every 5 (five) minutes as needed for chest pain ., Disp: 25 tablet, Rfl: 3 Physical Exam: BP 125/72 (BP Location: Left arm, Patient Position: Sitting, BP Cuff Size: X- large Adult) Pulse 72 Ht 5' 8 Wt 106.4 kg (234 lb 9.6 oz) SpO2 91% BMI 35.67 kg/m Constitutional: Chronically ill, frail elderly gentleman, no acute distress Head: Normocephalic and atraumatic. Eyes: Conjunctivae are normal, no scleral icterus, no corneal arcus Neck: No acanthosis nigricans, no elevated jugular venous distension, no hepatojugular reflux Cardiovascular: Regular rate and rhythm, 2/6 holosystolic murmur noted, normal S1 and S2, no rubs or gallops, PMI is midline Pulses: +2 dorsalis pedis pulses bilaterally Musculoskeletal: Normal range of motion. No cyanosis. No peripheral Edema Neurological: AOx3, moving all extremities normally Skin: Skin is warm and dry, normal hair pattern Psychiatric: Normal mood and affect, appropriate conversation Cardiovascular Studies: No recent cardiovascular studies Labs: Recent blood work from PCP office April 28, 2022 shows potassium 4.0, chloride 103, creatinine 1.78,albumin 4.3, AST ALT within normal limits, hemoglobin 12.3 No lipids Assessment and Plan: 1. Coronary artery disease, unspecified vessel or lesion type, unspecified whether angina present, unspecified whether [place] tribe or transplanted heart Stable status post remote multivessel PCI Continue lifelong aspirin, high intensity statin. It appears as though statin medication was stopped, and patient was started on bile acid sequestrant which can cause significant diarrhea. Given his history of coronary disease, would much prefer patient to be on statin, so we will resume 40 mg atorvastatin. Discontinuing bile acid sequestrant's Interestingly, patient is also on Eliquis, he has no recollection of this medication. I have reviewed Dr. Sheppard's notes, it appears as though patient was on Eliquis last year, but this was not addressed. Patient was not on Eliquis as of 2019, patient does not know, will reach out to PCP to see ifpatient's PCP has any information on oral anticoagulation. I would prefer not to refill this medication at this time given no obvious indication. 2. Primary hypertension Blood pressures are well controlled, no changes 3. Dyslipidemia Lipids were not completed, he is due for blood work in August and I asked him to make sure that his lipid panel was included. I will also send my note to his primary care physician if lipid panel could be included at next blood work that would be fantastic. I also urged him to call his primary care physician for ill fitting CPAP mask as well as handicap placard Follow-up: Return in about 1 year (around 06/16/2023). Vianney Judge MD, [facility] Non-Invasive Cardiology [facility] P:[phone] F:[phone] documented in this [id number] Instructions* Patient Instructions* Margot Chadwick MA - 06/16/2022 9:36 AM EDT How to Contact your Care Team: Provider: Dr. Vianney Judge MD Clinic Nurse: Ileana Chong RN REFILLS: When in need for refills please call your care team or the office at [phone]. Please include medication name, pharmacy name, and specify 30-day or 90-day supply. Please check with your pharmacy within 24 hours of request for your refill. You must follow up as directed to continue current refills. Thank you! documented in this [id number] History of Present illness NarrativePatient has chronic Hx of Elevated PSA ..Most recent PSA was 3.26 on 04/23. Prior PSA was done 07/23 and was 2.77..prior PSA was 9.9 (12/23) Previous PSA was 3.77 06/21....No fhx of prostate ca...pt had a negative bx done 01/20... 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 Denies urgency and frequency...Some he sitancy....Denies dysuria. Denies hematuria. 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 Patient does have a lot of fatigue and was asking about T cggdxqsjdbjJM-Sbxihea-Mqjchhc Work Phone: [phone]) 307-299005-25-2022 History of Present illness Narrative* Harvey Adams MD - 03/26/2022 10:29 AM EDT ASSESSMENT/PLAN: 1. 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 Patient was instructed to call the office ([phone]) immediately upon noticing flashes of light, increase in floaters, or changes in vision. 2. 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 3. Punctate keratitis of both eyes - ICD9: 370.21, ICD10: H16.143 - Use Systane three to four times daily in both eyes 4. Vitreous floaters of both eyes - ICD9: 379.24, ICD10: H43.393 Stable/Monitor 5. Pseudophakia of both eyes - ICD9: V43.1, ICD10: Z96.1 Stable/Monitor I have confirmed and edited as necessary the relevant ophthalmic history, review of systems, surgical history, and ophthalmological examination findings as obtained by the ophthalmic technical staff.I have seen and examined Jewel Chaves. I have discussed the examination findings, diagnosis, and treatment options with Jewel Chaves and/or his family. I have also reviewed and agree with the assessment and plan as stated above and agree with all its relevant components. I gave the patient the opportunity to ask questions about the findings, diagnosis, and treatment options. Harvey Adams MD' documented in this [facility] History of Present illness Narrative* Robert Mortensen Jr., DPM - 03/14/2022 11:32 AM EDT Nail care Patient is a pleasant 85-year-old gentleman who comes in today for at risk nail care. His diabetes is managed by primary including Jae Gannon, date of last service is May 08, 2021 A1c unknown. Thinks it is 7% though but he is just not sure. Physical Vascular: DP pulses are palpable 2 out of 4 bilaterally. PT pulses are nonpalpable bilaterally. CFTis delayed with mild foot and ankle edema pitting in nature +1. Hair growth is absent bilaterally. Skin is shiny atrophic dysvascular. Nails 99801 left foot and 42754 right foot are markedly elongated thickened mycotic crumbling and dystrophic. Neuro: Sharp dull is blunted Babinski's is blunted. Musculoskeletal: Muscle strength is 5/5 with fair tone. Can easily wiggle toes without any clickingor catching. Derm: Mild hyperkeratosis plantar medial heel right and left no flaking or loss no deep nodules. Assessment and plan: Patient is a pleasant diabetic male with age and diabetic induced peripheral arterial disease and onychomycosis to 10 nails. -He does qualify for nail care given his elevated risk with arterial disease. -Procedure: Sharply debrided and debulk in height and length 10 onychomycotic nails with a sharp pair of nail nippers consistent with a q8 modifier Follow-up in 3 months for foot nail care. documented in this [id number] History of Present illness Narrative* Jewel returns for medication refills and lab review. * DM: has been running 150-1670. Was taken off lisinopril by nephrology due to Kidney function. Denies any change in diet. A1c is 7.2 from 6.1. * HTN: denies chest pain/tightness, heart palpitations, no dizziness, left leg swelling. Wears compression stockings. * left eye has fluid below cheek. has been awhile. he isn't sure if it is from his CPAP mask, but feels like he is getting air up into his eyes and making them water. Dr. Adams on February 26. His CPAP supplies came from [facility] in [place]. * Sees cardiology- was seeing Dr. Baldwin but will see whoever is now in that office. * denies any blood in stool or in urine or any new bruises. Feels more tired than normal. -[facility] 205 DO Work Phone: [phone]) 917-821404-13-2022 History of Present illness Narrative* Jewel returns for medication refills and lab review. * DM: has been running 150-1670. Was taken off lisinopril by nephrology due to Kidney function. Denies any change in diet. A1c is 7.2 from 6.1. * HTN: denies chest pain/tightness, heart palpitations, no dizziness, left leg swelling. Wears compression stockings. * left eye has fluid below cheek. has been awhile. he isn't sure if it is from his CPAP mask, but feels like he is getting air up into his eyes and making them water. Dr. Adams on February 26. * Sees cardiology- was seeing Dr. Baldwin but will see whoever is now in that office. * [facility] in [place]. * denies any blood in stool or in urine or any new bruises. Feels more tired than normal. [facility] Work Phone: [phone]) 892-814602-21-2022 History of Present illness NarrativePatient has chronic Hx of Elevated PSA ..Most recent PSA was 3.26 on 04/23. Prior PSA was done 07/23 and was 2.77..prior PSA was 9.9 (12/23) Previous PSA was 3.77 06/21....No fhx of prostate ca...pt had a negative bx done 01/20... 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 Denies urgency and frequency...Some hesitancy....Denies dysuria. Denies hematuria. 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 Patient does have a lot of fatigue and was asking about T adsdfnuzmppTW-Qoigxmj-Hutejdn Work Phone: [phone]) 750-110502-11-2022 History of Present illness Narrative* Robert Mortensen Jr., AMALIA - 12/13/2021 11:24 AM EST Nail care Patient is a pleasant 85-year-old gentleman who comes in today for at risk nail care. His diabetes is managed by primary including Jae Gnanon, date of last service is May 08, 2021 A1c unknown. Thinks it is 7% though but he is just not sure. Physical Vascular: DP pulses are palpable 2 out of 4 bilaterally. PT pulses are nonpalpable bilaterally. CFTis delayed with mild foot and ankle edema pitting in nature +1. Hair growth is absent bilaterally. Skin is shiny atrophic dysvascular. Nails 72593 left foot and 90792 right foot are markedly elongated thickened mycotic crumbling and dystrophic. Neuro: Sharp dull is blunted Babinski's is blunted. Musculoskeletal: Muscle strength is 5/5 with fair tone. Can easily wiggle toes without any clickingor catching. Derm: Mild hyperkeratosis plantar medial heel right and left no flaking or loss no deep nodules. Assessment and plan: Patient is a pleasant diabetic male with age and diabetic induced peripheral arterial disease and onychomycosis to 10 nails. -He does qualify for nail care given his elevated risk with arterial disease. -Procedure: Sharply debrided and debulk in height and length 10 onychomycotic nails with a sharp pair of nail nippers consistent with a q8 modifier Follow-up in 3 months for foot nail care. documented in this [id number] History of Present illness Narrative* Robert Mortensen Jr., DPM - 09/13/2021 11:36 AM EST Nail care, dry skin Patient is a pleasant 85-year-old gentleman who comes in today for at risk nail care. His diabetes is managed by primary including Jae Gannon, date of last service is May 08, 2021 A1c unknown. Thinks it is 7% though but he is just not sure. Additionally today complains of much dry skin on his heels states it feels thick and not normal wonder if there is any options for this to improve. Physical Vascular: DP pulses are palpable 2 out of 4 bilaterally. PT pulses are nonpalpable bilaterally. CFTis delayed with mild foot and ankle edema pitting in nature +1. Hair growth is absent bilaterally. Skin is shiny atrophic dysvascular. Nails 14173 left foot and 32584 right foot are markedly elongated thickened mycotic crumbling and dystrophic. Neuro: Sharp dull is blunted Babinski's is blunted. Musculoskeletal: Muscle strength is 5/5 with fair tone. Can easily wiggle toes without any clickingor catching. Derm: Mild hyperkeratosis plantar medial heel right and left no flaking or loss no deep nodules. Assessment and plan: Patient is a pleasant diabetic male with age and diabetic induced peripheral arterial disease and onychomycosis to 10 nails and bilateral skin xerosis Xerosis: Did prescribe topical ammonium lactate 12% apply twice daily for 90 days dispense 140 g 1 refill. Straightforward medical complexity decision making. -He does qualify for nail care given his elevated risk with arterial disease. -Sharply debrided and debulk in height and length 10 onychomycotic nails with a sharp pair of nail nippers consistent with a q8 modifier Follow-up in 3 months for foot nail care. documented in this [id number] History of Present illness Narrativechronic Hx of Elevated PSA ..Most recent PSA was done 07/23 and was 2.77..prior PSA was 9.9 (12/23) Previous PSA was 3.77 06/21....No fhx of prostate ca...pt had a negative bx done 01/20... 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 Denies urgency and frequency...Some hesitancy....intermittent dysuria. Denies hematuria. Nocturia x1..No medication for the prostate...ED is chronic..No medication for this.YZ-Wmqmdgr-Ehxjivg Work Phone: 1([phone]) 461-392808-20-2021 History of Present illness NarrativePatient is here for 6 month f/u with PSA. Patient has a chronic hx of Elevated PSA ..Most recent PSA was 9.9 (12/23) Previous PSA was 3.77 06/21.. Prior PSA was 4.03 on 11/2019...No fhx of prostate ca...Never had a bx of the prostate....Denies bone pain...Denies weight loss. 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 Denies urgency and frequency...Some hesitancy....intermittent dysuria. Denies hematuria. Nocturia x1..No medication for the prostate...ED is chronic..No medication for this.TO-Mmjxhrl-Rolaggf Work Phone: 1(285) 716-920508-05-2021 Miscellaneous Notes* Assessment & Plan Note - Aris Meredith MD - 06/06/2021 10:08 AM EDT Associated Problem(s): Hyperlipidemia I reviewed his recent lipid profile which demonstrated an elevated LDL of 99. In reviewing his active medications it appears that his atorvastatin was discontinued. He is unaware of why this occurredas OK. I recommended he discuss this with you at his office visit next week to determine whether statin therapy could be resumed. * Assessment & Plan Note - Aris Meredith MD - 06/06/2021 10:08 AM EDT Associated Problem(s): Hypertension His blood pressure is reasonably well-controlled on his present regimen. I reviewed his home blood pressures which have also been under fairly good control. I made no changes today. * Assessment & Plan Note - Aris Meredith MD - 06/06/2021 10:08 AM EDT Associated Problem(s): CAD (coronary artery disease) This pleasant gentleman continues doing very well now 12 years status post multivessel drug-elutingstent implantation. He remains very functional, very compliant and minimally symptomatic. I reviewed his regimen and made no changes today documented in this [id number] History of Present illness Narrative* Aris Meredith MD - 06/06/2021 10:06 AM EDT I saw Jewel Chaves in follow up in the office on 06/06/21. Bean has had a difficult year since I last saw him. He apparently contracted Covid in November and was hospitalized for 2 weeks followed by several weeks at a rehab facility. Over the past several months his exercise tolerance has been gradually improving and he does feel that he is nearly back to baseline at this time. He apparently had no cardiac issues during his hospitalization and presently has no significant symptoms. He denies exertional chest pain or discomfort, limiting exertional dyspnea, palpitations or syncope. He remains very compliant with his medical regimen which he continues to tolerate well Review of Systems: Documented in Medical Record Physical Exam Vital Signs: Blood Pressure 138/69 (BP Location: Left arm, Patient Position: Sitting) Pulse 71 Height 5' 8 Weight 105.2 kg (232 lb) Oxygen Saturation 93% Body Mass Index 35.28 kg/m General: No acute distress, alert, and oriented x3. Skin: Normal turgor, well-hydrated, HEENT: Normocephalic,EOMI Neck: Supple, no bruits Cardiovascular: Regular rate and rhythm. No murmurs gallops or rubs. No JVD noted. No peripheral edema noted. Respiratory: Clear to auscultation and percussion, no rales, rhonchi or wheezes Abdominal: Soft, nontender, nondistended, without masses or bruits. Extremities : No clubbing or cyanosis. Pulses intact Neurological: Cranial nerves grossly intact. No focal neurological deficits noted. Psych: Normal mood and affect Allergy Information: I have reviewed the patient's allergies. Metformin Home Medications: Outpatient Medications as of 06/06/2021 Medication Sig aspirin 81 MG EC tablet Chew 81 mg daily. cholecalciferol, vitamin D3, (VITAMIN D3 ORAL) Take 1 tablet by mouth daily . cholestyramine-aspartame (cholestyramine light) 4 gram PwPk Take 1 packet by mouth with evening meal . cyanocobalamin, vitamin B-12, (VITAMIN B12 ORAL) Take 1 tablet by mouth daily . furosemide (LASIX) 20 MG tablet Take 20 mg by mouth daily . gabapentin (NEURONTIN) 100 MG capsule Take 100 mg by mouth 3 (three) times a day . glimepiride (AMARYL) 1 MG tablet Take 1 mg by mouth every morning before breakfast. metoprolol succinate (TOPROL XL) 100 MG 24 hr tablet Take 1 (one) tablet (100 mg total) by mouth daily . (Patient taking differently: Take 100 mg by mouth nightly .) multivitamin with minerals tablet Take 1 tablet by mouth daily . nizatidine (AXID) 150 MG capsule Take 150 mg by mouth 2 (two) times a day . primidone (MYSOLINE) 50 MG tablet Take 150 mg by mouth 2 (two) times a day . apixaban (ELIQUIS) 5 mg Tab Take 1 (one) tablet (5 mg total) by mouth 2 (two) times a day . EKG: Normal sinus rhythm with evidence of an old anteroseptal OK. Assessment/Plan: CAD (coronary artery disease) This pleasant gentleman continues doing very well now 12 years status post multivessel drug-elutingstent implantation. He remains very functional, very compliant and minimally symptomatic. I reviewed his regimen and made no changes today Hypertension His blood pressure is reasonably well-controlled on his present regimen. I reviewed his home blood pressures which have also been under fairly good control. I made no changes today. Hyperlipidemia I reviewed his recent lipid profile which demonstrated an elevated LDL of 99. In reviewing his active medications it appears that his atorvastatin was discontinued. He is unaware of why this occurredas OK. I recommended he discuss this with you at his office visit next week to determine whether statin therapy could be resumed. * Elaine Chavarria MA - 06/06/2021 9:47 AM EDT Review of Systems Constitutional: Negative for diaphoresis, malaise/fatigue, weight gain and weight loss. HENT: Negative for hearing loss, nosebleeds and tinnitus. Eyes: Negative for blurred vision and visual disturbance. Cardiovascular: Negative for chest pain, claudication, cyanosis, dyspnea on exertion, irregular heartbeat, leg swelling, near-syncope, orthopnea, palpitations, paroxysmal nocturnal dyspnea and syncope. Respiratory: Negative for hemoptysis, shortness of breath and snoring. Endocrine: Negative for cold intolerance and heat intolerance. Hematologic/Lymphatic: Does not bruise/bleed easily. Skin: Negative for flushing, poor wound healing and rash. Musculoskeletal: Negative for back pain, muscle weakness and myalgias. Gastrointestinal: Negative for abdominal pain, change in bowel habit, melena, nausea and vomiting. Genitourinary: Negative for decreased libido and hematuria. Neurological: Negative for loss of balance and numbness. Psychiatric/Behavioral: Negative for memory loss. The patient is not nervous/anxious. documented in this [id number] Instructions* Patient Instructions* Elaine Chavarria MA - 06/06/2021 9:45 AM EDT How to contact your Care Team: Provider: Dr. Meredith Nurse: Lisy Wolfe RN In case of an emergency please call 911. REFILLS: When in need for refills please call your care team or the office at [phone]. Please include medication name, pharmacy name, and specify 30-day or 90-day supply. Please check with your pharmacy within 24 hours of request for your refill. You must follow up as directed to continue current refills. Thank you! 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 In September2019 his creatinine was 1.62. It does appear that his ranges from 1.3-1.7. * He did have some low blood pressures several months ago and at that time his benazepril was discontinued. Enalapril 10 mg was maintained. 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 QL[facility]tk[facility] 3 DO Work Phone: discharge summary Author Dr. Rodriguez [facility] April 06, 2023 7:35am Note Date/Time April 06, 2023 6:34a m [facility] Medical Records Department [address] [place] [address] Emergency Department Summary 04/06/23 MR#: [id number] Acct: [id number] Name: JEWEL CHAVES JUNIOR Rep #:[id number] : 1935 87 From: Wilfrido Rodriguez MD PCP: Dr. Palmira العراقي MD Statu s:REG ER Location: ED HPI HPI - GI History of Present Illness Chief Complaint: GI Bleed Detail of Chief Complaint: Black stool Informant: patient and spouse/S.O. Abdominal Pain/Flank Pain Onset: Today and Yesterday Context: Sudden Onset Timing: Intermittent Quality: Aching Location: Epigastric Current Severity: Gone Maximum Severity: Mild Worsened by: Nothing Relieved by: Nothing Nausea/Vomiting/Emesis GI Symptom: Positive for Nausea; Negative for Vomiting Diarrhea/Melena/Hematochezia GI Symptom: Positive for Melena; Negative for Diarrhea or Hematochezia Onset: Today and Yesterday Stool Quality: Positive for Loose and Black; Negative for Maroon or BRB per rectum Associated Symptoms Associated Symptoms: Negative for Dysuria, Frequency, Hematuria or Urgency LMP: Not applicable Narrative Narrative: Patient is an 80 old male on Adriaan went for coronary disease. He had several stents placed 12 years ago. He also has history of gout, hypertension, peptic ulcer disease. He is on Pepcid. He had an EGD performed by GI specialist at [facility] proximal weeks ago and was told he has lesions. He is also on sucralfate. He presents because of black stool. He denies orthostatic symptomstoday. He was lightheaded when he did his bowel prep. He denies chest pain, dyspnea, dyspnea on exertion. He denies orthopnea. He denies intolerance to food. He denies bruising easily. Recently he was told to decrease his Eliquis dose. He has not noted blood in his urine. He does not bruise easily. He denies bleeding from his gums. Prior similar symptoms: No Recent Illness/Hospitalization: Yes [facility] Medical History Diabetes Hypertension Home Medications allopurinol 100 mg tablet 100 mg PO DAILY 04/06/23 [History Last Taken Unknown] amlodipine 10 mg tablet 10 mg PO DAILY 04/06/23 [History Last Taken Unknown] apixaban 2.5 mg tablet (Eliquis) 2.5 mg PO BID 04/06/23 [History Last Taken Unknown] aspirin 81 mg tablet 81 mg PO DAILY 04/06/23 [History Last Taken Unknown] atorvastatin 20 mg tablet 20 mg PO DAILY 04/06/23 [History Last Taken Unknown] famotidine 20 mg tablet 20 mg PO BID 04/06/23 [History Last Taken Unknown] ferrous sulfate 325 mg (65 mg iron) tablet 325 mg PO DAILY 04/06/23 [History Last Taken Unknown] furosemide 20 mg tablet 20 mg PO BID 04/06/23 [History Last Taken Unknown] gabapentin 300 mg capsule 300 mg PO BID 04/06/23 [History Last Taken Unknown] glimepiride 2 mg tablet 2 mg PO DAILY 04/06/23 [History Last Taken Unknown] metoprolol succinate 100 mg tablet,extended release 24 hr 100 mg PO DAILY 04/06/23 [History Last Taken Unknown] multivitamin 1 tab PO DAILY 04/06/23 [History Last Taken Unknown] sucralfate 1 gram tablet (Carafate) 1 g PO BID 04/06/23 [History Last Taken Unknown] Allergy/AdvReac Type Severity Reaction Status Date / Time metformin AdvReac Diarrhea Verified 04/06/23 05:49 Surgical History History of cholecystectomy History of hernia surgery Social History (Updated 04/06/23 @ 06:[address] Wilfrido Rodriguez MD) household members: spouse Smoking Status: Never smoker substance use type: does not use ROS ROS ED Constitutional Constitutional ED: Denies chills, fever(s), subjective or sweats ENT ENT ED: Denies ear pain, rhinorrhea or sore throat Cardiovascular Cardiovascular: Denies chest pain, orthopnea, palpitations or paroxysmal nocturnal dyspnea Respiratory/Chest Respiratory/Chest: Denies cough, dyspnea, dyspnea on exertion, orthopnea or paroxysmal nocturnal dyspnea Gastrointestinal Gastrointestinal: Reports abdominal pain and melena; Denies constipation, diarrhea, nausea or vomiting Genitourinary Genitourinary ED: Denies dysuria, hematuria or urinary frequency Musculoskeletal Musculoskeletal: Denies arthralgias, back pain or myalgias Integumentary Denies rash Neurologic Neurologic: Denies paresthesias or weakness Endocrine Endocrinology: Denies polydipsia or polyuria Hematologic/Lymphatic Hematologic/Lymphatic: Denies easy bleeding or easy bruising EXAM Physical Exam Const Vital Signs: 04/06/23 05:49 04/06/23 06:42 Temperature 96.4 F L Temperature Source Temporal Pulse Rate 73 Pulse Rate [Lying] 74 Pulse Rate [Sitting (for 1 minute prior to obtaining)] 75 Pulse Rate [Standing (for 1 minute prior to obtaining)] 74 Respiratory Rate 20 H Blood Pressure 132/57 H Blood Pressure [Lying] 134/59 H Blood Pressure [Sitting (for 1 minute prior to obtaining)] 130/56 H Blood Pressure [Standing (for 1 minute prior to obtaining)] 131/81 H Blood Pressure Mean 82 Blood Pressure Mean [Lying] 84 Blood Pressure Mean [Sitting (for 1 minute prior to obtaining)] 80 Blood Pressure Mean [Standing (for 1 minute prior to obtaining)] 97 Pulse Ox 98 Oxygen Delivery Method Room Air Positive well nourished, well developed and obese General Appearance ED: well developed, NAD and pallor Nutritional Appearance: obese HEENT Reports TM's clear and moist mucous membranes normocephalic and atraumatic Tympanic Membrane ED: Yes TM's clear Eyes PERRL and EOMs intact bilaterally General Eye ED: Yes pale conjunctiva; Negative for scleral icterus Neck no lymphadenopathy, supple and no JVD Resp normal respiratory effort Effort and Inspection: respiratory distress Cardio regular rate, regular rhythm, S1 normal heart sound, S2 normal heart sound and no murmurs GI non-tender and no masses; Negative for non-distended GI Narrative: There is no fissures, fistulas hemorrhoid noted on rectal exam. Stool is blackish green and does have an odor to it. Inspection: abdominal distention Auscultation: hypoactive bowel sounds Palpation: soft; Negative for tender, guarding, rigid, hepatomegaly or splenomegaly Back/Spine no CVA tenderness Extremity full ROM General Extremety ED: Yes edema; Negative for tenderness General Extremity: edema Neuro CN's II-XII intact bilaterally and moves all extremities Sensorium / Orientation: alert Psych mental status grossly normal Skin no wounds General Skin Exam: pallor; Negative for jaundice Lesions: no lesions Rashes: no rashes MDM MDM MDM Narrative Medical decision making narrative: With history of recent EGD with lesions blackish green stool this may represent GI bleed. The black his grandson may have been due to the fact that he is on iron. Will obtain CBC to assess H&H compared to prior. BMP to assess BUN to creatinine ratio which would be elevated, greater than 20-1 if due to GI bleed or dehydration. Since he is on Eliquis coags were not obtained. Stool was sent for occult blood. She was recently admitted to [facility] hospital for acute on chronic anemia. There was concern this was due to GI bleed. Upper endoscopy revealed several punctate ulcers throughout the antrum. H. pylori biopsies were negative. 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 Hismost recent hemoglobin was 7.7. He denied at the time of this author report black stool or blood in his stool. He has multiple other medical problems whichshe did not list initially either. Patient did require transfusion of 2 units of blood. Since his hemoglobin is low for than his hemoglobin prior to transfusion Dr. Kirby was made aware of the patient. He will need hospitalization. Suspect observation status with serial H&H to determine if he is blood count is falling. He is presently coagulant. This may need to be discontinued temporarily. History & Record Review Additional record(s) reviewed:: Prior inpatient record and Prior outpatient record Lab Data Attestation: I reviewed the patient's lab results. 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 Hemoglobin today is 7.3 with Alaniz crit of 23.5. MCV is 110. White count is 2.6 thousand with a frontal. BUN and anion elevated for 3 and 2.25 with a BUN to creatinine ratio of 19:1. Coags were not obtained since he is on Eliquis and results are meaningless. Based on records from outside facility patient does have stage III chronic kidney disease. Will type and screen patient at this point. Labs: Laboratory Results - last 24 hr 04/06/23 04/06/23 05:53 05:53 WBC 2.6 L RBC 2.06 L Hgb 7.3 L Hct 23.5 L MCV 114.1 H MCH 35.4 H MCHC 31.1 L RDW Std Deviation 87.9 H RDW Coeff of Beto 21.4 H Plt Count 102 L MPV 11.5 Immature Gran % (Auto) 1.100 H Neut % (Auto) 53.6 Lymph % (Auto) 36.9 [place] % (Auto) 5.7 Eos % (Auto) 2.3 Baso % (Auto) 0.4 Absolute Neuts (auto) 1.4 L Absolute Lymphs (auto) 0.97 Nucleated RBC % 0 Anisocytosis 2+ Sodium 143 Potassium 4.2 Chloride 112 H Carbon Dioxide 25.0 Anion Gap 6 BUN 43 H Creatinine 2.25 H Estim Creat Clear Calc 22.38 Est GFR (MDRD) Af Amer 36 L Est GFR (MDRD) Non-Af 29 L BUN/Creatinine Ratio 19.1 Glucose 163 H Calcium 8.9 Management Discussion w/another healthcare provider: Hospitalist and Unit Receptionist (Dr. Kirbyrequested Protonix IV push, drip and octreotide drip. Patient be admitted to the hospitalist service with consult to him.) Discharge Plan Dx/Rx/DC Orders Clinical Impression: Acute GI bleeding, Hypercholesterolemia, Presence of stent in coronary artery in patient with coronary artery disease, Anemia due to acute blood loss, Chroniclymphocytic leukemia of B-cell type, Stage 3 chronic kidney disease, Anticoagulant long-term use Disposition Disposition: [facility] What to do if you have Problems For any increased pain, shortness of breath, bleeding, nausea or vomiting, chestpain, or any unexpected problems, contact your Primary Care Provider. Call [facility] ([phone]) or report to the closest Emergency Room. Call 911 if necessary. 04/06/23 0735 <Electronically signed by Wilfrido Rodriguez MD> Cosigner Signature (if applicable): CC: Dr. Palmira العراقي MD ~ Signed [facility] Work Phone: Evaluation note* Diagnosis Angina pectoris (HCC) Other and unspecified angina pectoris Arthritis Unspecified arthropathy, site unspecified BPH with obstruction/lower urinary tract symptoms Capsulitis Enthesopathy of unspecified site Cataract, unspecified cataract type, unspecified laterality Dumping syndrome Postgastric surgery syndromes Edema of foot Edema Foot cramps Cramp of limb Liver disease Unspecified disorder of liver Loss of weight Nocturia OM (onychomycosis) Dermatophytosis of nail PAOD (peripheral arterial occlusive disease) (HCC) Unspecified peripheral vascular disease Swollen feet Swelling of limb Synovitis and tenosynovitis Unspecified synovitis and tenosynovitis Tinea pedis, unspecified [facility]ality [facility] Diagnosis 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- Primary [facility] Diagnosis Essential hypertension- Primary Unspecified essential hypertension 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 Mixed hyperlipidemia [facility] Diagnosis Onychomycosis- Primary Dermatophytosis of nail Peripheral vascular disease, 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HCC) Peripheral vascular disease, unspecified Xerosis of skin [facility] Diagnosis Onychomycosis- Primary Dermatophytosis of nail Peripheral vascular disease, 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HCC) Peripheral vascular disease, unspecified [facility] Diagnosis Onychomycosis- Primary Dermatophytosis of nail Peripheral vascular disease, 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HCC) Peripheral vascular disease, unspecified [facility] Diagnosis 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 Macular cyst, hole, or pseudohole of retina Type 2 diabetes mellitus without retinopathy (HCC) Type II or unspecified type diabetes mellitus without mention of complication, not stated as uncontrolled Punctate keratitis of both eyes Punctate keratitis Vitreous floaters of both eyes Pseudophakia of both eyes Lens replaced by other means [facility] Diagnosis Coronary artery disease, unspecified vessel or lesion type, unspecified whether angina present, unspecified whether ki[place] tribe or transplanted heart- Primary Primary hypertension Unspecified essential hypertension Dyslipidemia Other and unspecified hyperlipidemia documented in this encounter [facility] note* Diagnosis Peripheral vascular disease, 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HCC)- Primary Peripheral vascular disease, unspecified Onychomycosis Dermatophytosis of nail documented in this encounter [facility] note* Diagnosis Onychomycosis- Primary Dermatophytosis of nail Peripheral vascular disease, 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HCC) Peripheral vascular disease, unspecified documented in this encounter [facility] note* Diagnosis Type 2 diabetes mellitus without retinopathy (HCC)- Primary Type II or unspecified type diabetes mellitus without mention of complication, not stated as uncontrolled Dry eyes, bilateral Tear film insufficiency, unspecified Vitreous floaters of both eyes Lamellar macular hole of left eye Macular cyst, hole, or pseudohole of retina documented in this encounter [facility] note* Diagnosis Peripheral vascular disease, 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HCC)- Primary Peripheral vascular disease, unspecified Onychomycosis Dermatophytosis of nail [facility] Diagnosis Onset Date Resolution Status Acute GI bleeding acute Anemia due to acute blood loss acute Anticoagulant long-term use acute Hypercholesterolemia acute Presence of stent in coronar y artery in patient with coronary artery disease acute Chronic lymphocytic leukemia of B-cell type chronic Stage 3 chronic kidney disease [facility] Work Phone: Evaluation note* Diagnosis Onset Date Resolution Status Acute GI bleeding acute Anemia due to acute blood loss acute Anticoagulant long-term use acute Cirrhosis acute Hypercholesterolemia acute Presence of stent in coronar y artery in patient with coronary artery disease acute Chronic lymphocytic leukemia of B-cell type chronic Stage 3 chronic kidney disease chronic [facility] Work Phone: Evaluation note* Diagnosis Onset Date Resolution Status Cirrhosis acute Diabetes acute Gastric ulcer acute Chronic lymphocytic leukemia of B-cell type chronic Stage 3 chronic kidney disease chronic Acute GI bleeding resolved Anemia due to acute blood loss resolved [facility] Work Phone: Evaluation note* Diagnosis Ulnar neuropathy at elbow, unspecified laterality- Primary Carpal tunnel syndrome, bilateral Carpal tunnel syndrome [facility] Diagnosis Primary hypertension- Primary Unspecified essential hypertension Anemia, unspecified type Gastric ulcer, unspecified chronicity, unspecified whether gastric ulcer hemorrhage or perforation present 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, unspecified vessel or lesion type, unspecified whether angina present Type 2 diabetes mellitus with stage 3 chronic kidney disease, with long-term current use of insulin, unspecified whether stage 3a or 3b CKD (CMS/HCC) Mixed hyperlipidemia documented in this encounter [facility] Work Phone: Evaluation note* Diagnosis Anemia, unspecified type Gastric ulcer, unspecified chronicity, unspecified whether gastric ulcer hemorrhage or perforation present 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, unspecified vessel or lesion type, unspecified whether angina present Type 2 diabetes mellitus with stage 3 chronic kidney disease, with long-term current use of insulin, unspecified whether stage 3a or 3b CKD (CMS/HCC) Primary hypertension Unspecified essential hypertension Mixed hyperlipidemia documented in this encounter [facility] Work Phone: Evaluation note* Diagnosis Chronic kidney disease, stage 4 (severe) (CMS/HCC)- Primary Stage 3b chronic kidney disease (CMS/HCC) Type 2 diabetes mellitus with stage 3b chronic kidney disease, with long-term current use of insulin (CMS/HCC) Primary hypertension Unspecified essential hypertension Mixed 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) documented in this encounter [facility] Work Phone: Evaluation note* Diagnosis Stage 3b chronic kidney disease (CMS/HCC)- Primary 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) documented in this encounter [facility] Work Phone: Evaluation note* Diagnosis Onychomycosis- Primary Dermatophytosis of nail Peripheral vascular disease, 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HCC) Peripheral vascular disease, unspecified [facility] Diagnosis 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)- Primary documented in this encounter [facility] Work Phone: Evaluation note* Diagnosis Right foot ulcer, limited to breakdown of skin (HCC)- Primary [facility] Diagnosis Onset Date Resolution Status Cirrhosis chronic Diabetes chronic Gastric ulcer chronic Stage 4 chronic kidney disease [facility] Work Phone: Evaluation note* Diagnosis 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) documented in this encounter [facility] Work Phone: Evaluation note* Diagnosis Right foot ulcer, limited to breakdown of skin (HCC)- Primary [facility] Leukopenia, unspecified type- Primary 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) Leukopenia, unspecified type documented in this encounter [facility] Work Phone: Evaluation note* Diagnosis 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, unspecified vessel or lesion type, unspecified whether angina present- Primary 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) Leukopenia, unspecified type Type 2 diabetes mellitus with stage 4 chronic kidney disease, with long-term current use of insulin (CMS/HCC) Neutropenia, unspecified type (CMS/HCC) Primary hypertension Unspecified essential hypertension Mixed hyperlipidemia DWAIN on CPAP Thrombocytopenia (CMS/HCC) Unspecified thrombocytopenia Tremor, essential Essential and other specified forms of tremor Essential (primary) hypertension Unspecified essential hypertension Type 2 diabetes mellitus with diabetic chronic kidney disease (CMS/HCC) Chronic kidney disease, stage 3 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CMS/HCC) Edema, unspecified type Myelodysplastic syndrome, 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CMS/HCC) Myelodysplastic syndrome, unspecified Peripheral vascular disease, 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CMS/HCC) Peripheral vascular disease, unspecified Other pancytopenia (CMS/HCC) Other pancytopenia documented in this encounter [facility] Work Phone: Evaluation note* Diagnosis Myelodysplastic syndrome, 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CMS/HCC)- Primary Myelodysplastic syndrome, 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) Leukopenia, unspecified type documented in this encounter [facility] Work Phone: Evaluation note* Diagnosis 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) Leukopenia, unspecified type documented in this encounter [facility] Work Phone: Evaluation note* Diagnosis 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) Leukopenia, unspecified type documented in this encounter [facility] Work Phone: Evaluation note* Diagnosis Stage 4 chronic kidney disease (CMS/HCC)- Primary Primary hypertension Unspecified essential hypertension 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, 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) documented in this encounter [facility] Work Phone: Evaluation note* Diagnosis Pulmonary fibrosis (CMS/HCC) Postinflammatory pulmonary fibrosis documented in this encounter [facility] Work Phone: Evaluation note* Diagnosis Pulmonary fibrosis (CMS/HCC) Postinflammatory pulmonary fibrosis documented in this encounter [facility] Work Phone: Evaluation note* Diagnosis Onset Date Resolution Status Cirrhosis chronic Diabetes chronic Gastric ulcer [facility] Work Phone: Evaluation note* Diagnosis 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) Leukopenia, unspecified type Myelodysplastic syndrome, 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Multi) Myelodysplastic syndrome, unspecified Stage 4 chronic kidney disease (Multi) documented in this encounter [facility] Work Phone: Evaluation note* Diagnosis 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) Leukopenia, unspecified type Myelodysplastic syndrome, 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Multi) Myelodysplastic syndrome, unspecified documented in this encounter [facility] Work Phone: Evaluation note* Diagnosis Interstitial lung disease (Multi)- Primary Postinflammatory pulmonary fibrosis Hypoxemia documented in this encounter [facility] Work Phone: Evaluation note* Diagnosis Dyslipidemia- Primary Other and unspecified hyperlipidemia Primary hypertension Unspecified essential hypertension Coronary artery disease, unspecified vessel or lesion type, unspecified whether angina present, unspecified whether [place] or transplanted heart [facility] Diagnosis 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) Leukopenia, unspecified type Myelodysplastic syndrome, 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Multi) Myelodysplastic syndrome, unspecified Stage 4 chronic kidney disease (Multi) Thrombocytopenia (CMS-HCC) Unspecified thrombocytopenia 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) Neutropenia, unspecified type ([facility]-HCC) documented in this encounter [facility] Work Phone: Evaluation note* Diagnosis 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 Macular cyst, hole, or pseudohole of retina Type 2 diabetes mellitus without retinopathy (HCC) Type II or unspecified type diabetes mellitus without mention of complication, not stated as uncontrolled Dry eyes, bilateral Tear film insufficiency, unspecified Pseudophakia of both eyes Lens replaced by other means Essential hypertension Unspecified essential hypertension Sleep apnea, unspecified type [facility] Onychomycosis- Primary Dermatophytosis of nail Peripheral vascular disease, 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HCC) Peripheral vascular disease, unspecified [facility]* Diagnosis Interstitial lung disease (Multi)- Primary Postinflammatory pulmonary fibrosis Hypoxemia documented in this encounter [facility] Work Phone: Evaluation note* Diagnosis 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) Leukopenia, unspecified type Myelodysplastic syndrome, 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Multi) Myelodysplastic syndrome, unspecified Stage 4 chronic kidney disease (Multi) Thrombocytopenia (CMS-HCC) Unspecified thrombocytopenia 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) Neutropenia, unspecified type ([facility]-HCC) documented in this encounter [facility] Work Phone: Evaluation note* Diagnosis Routine general medical examination at health care facility- Primary Routine general medical examination at a health care facility 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) Leukopenia, unspecified type 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, unspecified vessel or lesion type, unspecified whether angina present Type 2 diabetes mellitus with stage 4 chronic kidney disease, with long-term current use of insulin (Multi) Neutropenia, unspecified type ([facility]-HCC) Primary hypertension Unspecified essential hypertension Mixed hyperlipidemia DWAIN on CPAP Thrombocytopenia ([facility]-HCC) Unspecified thrombocytopenia Tremor, essential Essential and other specified forms of tremor Essential (primary) hypertension Unspecified essential hypertension Type 2 diabetes mellitus with diabetic chronic kidney disease (Multi) Chronic kidney disease, stage 3 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Multi) Gastric ulcer, unspecified chronicity, unspecified whether gastric ulcer hemorrhage or perforation present Low magnesium level documented in this encounter [facility] Work Phone: Evaluation note* Diagnosis 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) Leukopenia, unspecified type Myelodysplastic syndrome, 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Multi) Myelodysplastic syndrome, unspecified Stage 4 chronic kidney disease (Multi) Thrombocytopenia ([facility]-HCC) Unspecified thrombocytopenia 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) Neutropenia, unspecified type ([facility]-HCC) documented in this encounter [facility] Work Phone: Evaluation note* Diagnosis Onychomycosis- Primary Dermatophytosis of nail Peripheral vascular disease, 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HCC) Peripheral vascular disease, unspecified documented in this encounter [facility] note* Diagnosis Chronic kidney disease, stage 4 (severe) (Multi)- Primary 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, with long-term current use of insulin (Multi) Primary hypertension Unspecified essential hypertension Mixed 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) Stage 4 chronic kidney disease (Multi)- Primary Primary hypertension Unspecified essential hypertension 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, 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) Stage 4 chronic kidney disease (Multi)- Primary Primary hypertension Unspecified essential hypertension 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, 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) documented in this encounter [facility] Work Phone: Evaluation note* Diagnosis Chronic kidney disease, stage 4 (severe) (Multi)- Primary 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, with long-term current use of insulin (Multi) Primary hypertension Unspecified essential hypertension Mixed 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) Stage 4 chronic kidney disease (Multi)- Primary Primary hypertension Unspecified essential hypertension 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, 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) Stage 4 chronic kidney disease (Multi)- Primary Primary hypertension Unspecified essential hypertension 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, 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) 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) Leukopenia, unspecified type Myelodysplastic syndrome, 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Multi) Myelodysplastic syndrome, unspecified Stage 4 chronic kidney disease (Multi) Thrombocytopenia (CMS-HCC) Unspecified thrombocytopenia 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) Neutropenia, unspecified type ([facility]-HCC) documented in this encounter [facility] Work Phone: Evaluation note* Diagnosis Essential hypertension Unspecified essential hypertension 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 Type 2 diabetes mellitus with hyperglycemia, without long-term current use of insulin (HCC) Essential hypertension- Primary Unspecified essential hypertension Mixed 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 Essential hypertension- Primary Unspecified essential hypertension 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 Mixed hyperlipidemia Essential hypertension- Primary Unspecified essential hypertension 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 Mixed hyperlipidemia Onychomycosis- Primary Dermatophytosis of nail Peripheral vascular disease, 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HCC) Peripheral vascular disease, unspecified [facility] Diagnosis Chronic kidney disease, stage 4 (severe) (Multi)- Primary 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, with long-term current use of insulin (Multi) Primary hypertension Unspecified essential hypertension Mixed 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) Stage 4 chronic kidney disease (Multi)- Primary Primary hypertension Unspecified essential hypertension 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, 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) Stage 4 chronic kidney disease (Multi)- Primary Primary hypertension Unspecified essential hypertension 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, 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) 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, unspecified vessel or lesion type, unspecified whether angina present- Primary Type 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, with long-term current use of insulin (Multi) Mixed hyperlipidemia Primary hypertension Unspecified essential hypertension Tremor, essential Essential and other specified forms of tremor documented in this encounter [facility] Work Phone: Evaluation note* Diagnosis Chronic kidney disease, stage 4 (severe) (Multi)- Primary 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, with long-term current use of insulin (Multi) Primary hypertension Unspecified essential hypertension Mixed 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) Stage 4 chronic kidney disease (Multi)- Primary Primary hypertension Unspecified essential hypertension 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, 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) Stage 4 chronic kidney disease (Multi)- Primary Primary hypertension Unspecified essential hypertension 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, 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) 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) Leukopenia, unspecified type Myelodysplastic syndrome, 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Multi) Myelodysplastic syndrome, unspecified Stage 4 chronic kidney disease (Multi) Thrombocytopenia (CMS-HCC) Unspecified thrombocytopenia 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) Neutropenia, unspecified type ([facility]-HCC) documented in this encounter [facility] Work Phone: Evaluation note* Diagnosis Chronic kidney disease, stage 4 (severe) (Multi)- Primary 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, with long-term current use of insulin (Multi) Primary hypertension Unspecified essential hypertension Mixed 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) Stage 4 chronic kidney disease (Multi)- Primary Primary hypertension Unspecified essential hypertension 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, 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) 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 S/P coronary artery stent placement Postsurgical percutaneous transluminal coronary angioplasty status Class 2 severe obesity with serious comorbidity and body mass index (BMI) of 36.0 to 36.9 in adult, unspecified obesity type (Multi) documented in this encounter [facility] Work Phone: Evaluation note* Diagnosis Chronic kidney disease, stage 4 (severe) (Multi)- Primary 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, with long-term current use of insulin (Multi) Primary hypertension Unspecified essential hypertension Mixed 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) Stage 4 chronic kidney disease (Multi)- Primary Primary hypertension Unspecified essential hypertension 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, 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) 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) Leukopenia, unspecified type Myelodysplastic syndrome, 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Multi) Myelodysplastic syndrome, unspecified Stage 4 chronic kidney disease (Multi) Thrombocytopenia (CMS-HCC) Unspecified thrombocytopenia 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) Neutropenia, unspecified type ([facility]-HCC) documented in this encounter [facility] Work Phone: evaluation note* Diagnosis Chronic kidney disease, stage 4 (severe) (Multi)- Primary 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, with long-term current use of insulin (Multi) Primary hypertension Unspecified essential hypertension Mixed 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) Stage 4 chronic kidney disease (Multi)- Primary Primary hypertension Unspecified essential hypertension 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, 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) 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) Leukopenia, unspecified type Myelodysplastic syndrome, 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Multi) Myelodysplastic syndrome, unspecified Stage 4 chronic kidney disease (Multi) Thrombocytopenia (CMS-HCC) Unspecified thrombocytopenia 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) Neutropenia, unspecified type ([facility]-HCC) documented in this encounter [facility] Work Phone: Evaluation note* Diagnosis Chronic kidney disease, stage 4 (severe) (Multi)- Primary 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, with long-term current use of insulin (Multi) Primary hypertension Unspecified essential hypertension Mixed 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) Stage 4 chronic kidney disease (Multi)- Primary Primary hypertension Unspecified essential hypertension 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, 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) Interstitial lung disease (Multi) Postinflammatory pulmonary fibrosis documented in this encounter [facility] Work Phone: Evaluation note* Diagnosis Chronic kidney disease, stage 4 (severe) (Multi)- Primary 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, with long-term current use of insulin (Multi) Primary hypertension Unspecified essential hypertension Mixed 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) Stage 4 chronic kidney disease (Multi)- Primary Primary hypertension Unspecified essential hypertension 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, 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) Interstitial lung disease (Multi)- Primary Postinflammatory pulmonary fibrosis documented in this encounter [facility] Work Phone: Evaluation note* Diagnosis Chronic kidney disease, stage 4 (severe) (Multi)- Primary 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, with long-term current use of insulin (Multi) Primary hypertension Unspecified essential hypertension Mixed 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) Stage 4 chronic kidney disease (Multi)- Primary Primary hypertension Unspecified essential hypertension 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, 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) Stage 4 chronic kidney disease (Multi)- Primary Primary hypertension Unspecified essential hypertension 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, 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) Cellulitis of left lower extremity- Primary Tremor, essential Essential and other specified forms of tremor documented in this encounter [facility] Work Phone: Evaluation note* Diagnosis Chronic kidney disease, stage 4 (severe) (Multi)- Primary 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, with long-term current use of insulin (Multi) Primary hypertension Unspecified essential hypertension Mixed 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) Stage 4 chronic kidney disease (Multi)- Primary Primary hypertension Unspecified essential hypertension 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, 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) 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) Leukopenia, unspecified type Myelodysplastic syndrome, 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Multi) Myelodysplastic syndrome, unspecified Stage 4 chronic kidney disease (Multi) Thrombocytopenia (CMS-HCC) Unspecified thrombocytopenia 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) Neutropenia, unspecified type (CMS-HCC) documented in this encounter [facility] Work Phone: Evaluation note* Diagnosis Chronic kidney disease, stage 4 (severe) (Multi)- Primary 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, with long-term current use of insulin (Multi) Primary hypertension Unspecified essential hypertension Mixed 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) Stage 4 chronic kidney disease (Multi)- Primary Primary hypertension Unspecified essential hypertension 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, 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) Stage 4 chronic kidney disease (Multi)- Primary Primary hypertension Unspecified essential hypertension 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, 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) 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) Leukopenia, unspecified type Myelodysplastic syndrome, 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Multi) Myelodysplastic syndrome, unspecified Stage 4 chronic kidney disease (Multi) Thrombocytopenia (CMS-HCC) Unspecified thrombocytopenia 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) Neutropenia, unspecified type (CMS-HCC) documented in this encounter [facility] Work Phone: Evaluation note* Diagnosis Chronic kidney disease, stage 4 (severe) (Multi)- Primary 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, with long-term current use of insulin (Multi) Primary hypertension Unspecified essential hypertension Mixed 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) Stage 4 chronic kidney disease (Multi)- Primary Primary hypertension Unspecified essential hypertension 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, 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) Stage 4 chronic kidney disease (Multi)- Primary Primary hypertension Unspecified essential hypertension 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, 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) Upper respiratory tract infection, unspecified type- Primary Rash Rash and other nonspecific skin eruption documented in this encounter [facility] Work Phone: Evaluation note* Diagnosis Chronic kidney disease, stage 4 (severe) (Multi)- Primary 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, with long-term current use of insulin (Multi) Primary hypertension Unspecified essential hypertension Mixed 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) Stage 4 chronic kidney disease (Multi)- Primary Primary hypertension Unspecified essential hypertension 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, 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) Stage 4 chronic kidney disease (Multi)- Primary Primary hypertension Unspecified essential hypertension 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, 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) Stage 4 chronic kidney disease (Multi)- Primary Primary hypertension Unspecified essential hypertension Type 2 diabetes mellitus with stage 4 chronic kidney disease, with long-term current use of insulin (Multi) documented in this encounter [facility] Work Phone: Evaluation note* Diagnosis Essential hypertension Unspecified essential hypertension 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 Type 2 diabetes mellitus with hyperglycemia, without long-term current use of insulin (HCC) Essential hypertension- Primary Unspecified essential hypertension Mixed 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 Essential hypertension- Primary Unspecified essential hypertension 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 Mixed hyperlipidemia Essential hypertension- Primary Unspecified essential hypertension 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 Mixed hyperlipidemia Carpal tunnel syndrome, bilateral- Primary Carpal tunnel syndrome [facility] Essential hypertension Unspecified essential hypertension 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 Type 2 diabetes mellitus with hyperglycemia, without long-term current use of insulin (HCC) Essential hypertension- Primary Unspecified essential hypertension Mixed 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 Essential hypertension- Primary Unspecified essential hypertension 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 Mixed hyperlipidemia Essential hypertension- Primary Unspecified essential hypertension 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 Mixed hyperlipidemia Onychomycosis- Primary Dermatophytosis of nail Peripheral vascular disease, unspecified [facility] Chronic kidney disease, stage 4 (severe) (Multi)- Primary 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, with long-term current use of insulin (Multi) Primary hypertension Unspecified essential hypertension Mixed 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) Stage 4 chronic kidney disease (Multi)- Primary Primary hypertension Unspecified essential hypertension 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, 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) Stage 4 chronic kidney disease (Multi)- Primary Primary hypertension Unspecified essential hypertension 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, 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) Stage 4 chronic kidney disease (Multi)- Primary Primary hypertension Unspecified essential hypertension Type 2 diabetes mellitus with stage 4 chronic kidney disease, with long-term current use of insulin (Multi) Primary hypertension- Primary Unspecified essential hypertension Interstitial lung disease (Multi) Postinflammatory pulmonary fibrosis Class 2 severe obesity with serious comorbidity and body mass index (BMI) of 35.0 to 35.9 in adult, unspecified obesity type Gastroesophageal reflux disease, unspecified whether esophagitis present Mixed hyperlipidemia Neutropenia, unspecified type ([facility]-HCC) Stage 4 chronic kidney disease (Multi) Thrombocytopenia (CMS-HCC) Unspecified thrombocytopenia Type 2 diabetes mellitus with stage 4 chronic kidney disease, with long-term current use of insulin (Multi) Peripheral vascular disease, 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CMS-HCC) Peripheral vascular disease, unspecified 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, unspecified vessel or lesion type, unspecified whether angina present 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) Other pancytopenia (Multi) Other pancytopenia documented in this encounter [facility] Work Phone: Evaluation note* Diagnosis Chronic kidney disease, stage 4 (severe) (Multi)- Primary 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, with long-term current use of insulin (Multi) Primary hypertension Unspecified essential hypertension Mixed 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) Stage 4 chronic kidney disease (Multi)- Primary Primary hypertension Unspecified essential hypertension 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, 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) Stage 4 chronic kidney disease (Multi)- Primary Primary hypertension Unspecified essential hypertension 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, 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) Stage 4 chronic kidney disease (Multi)- Primary Primary hypertension Unspecified essential hypertension Type 2 diabetes mellitus with stage 4 chronic kidney disease, with long-term current use of insulin (Multi) Interstitial lung disease (Multi) Postinflammatory pulmonary fibrosis documented in this encounter [facility] Work Phone: Evaluation note* Diagnosis Chronic kidney disease, stage 4 (severe) (Multi)- Primary 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, with long-term current use of insulin (Multi) Primary hypertension Unspecified essential hypertension Mixed 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) Stage 4 chronic kidney disease (Multi)- Primary Primary hypertension Unspecified essential hypertension 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, 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) Stage 4 chronic kidney disease (Multi)- Primary Primary hypertension Unspecified essential hypertension 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, 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) Stage 4 chronic kidney disease (Multi)- Primary Primary hypertension Unspecified essential hypertension Type 2 diabetes mellitus with stage 4 chronic kidney disease, 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) Leukopenia, unspecified type Myelodysplastic syndrome, 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Multi) Myelodysplastic syndrome, unspecified Stage 4 chronic kidney disease (Multi) Thrombocytopenia ([facility]-HCC) Unspecified thrombocytopenia 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) Neutropenia, unspecified type (CMS-HCC) 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, unspecified vessel or lesion type, unspecified whether angina present Type 2 diabetes mellitus with stage 4 chronic kidney disease, with long-term current use of insulin (Multi) Mixed hyperlipidemia Primary hypertension Unspecified essential hypertension Tremor, essential Essential and other specified forms of tremor documented in this encounter [facility] Work Phone: Evaluation note* Diagnosis Chronic kidney disease, stage 4 (severe) (Multi)- Primary 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, with long-term current use of insulin (Multi) Primary hypertension Unspecified essential hypertension Mixed 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) Stage 4 chronic kidney disease (Multi)- Primary Primary hypertension Unspecified essential hypertension 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, 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) Stage 4 chronic kidney disease (Multi)- Primary Primary hypertension Unspecified essential hypertension 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, 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) Stage 4 chronic kidney disease (Multi)- Primary Primary hypertension Unspecified essential hypertension Type 2 diabetes mellitus with stage 4 chronic kidney disease, with long-term current use of insulin (Multi) Abnormal CT scan- Primary Other nonspecific (abnormal) findings on radiological and other examinations of body structure History of continuous positive airway pressure (CPAP) therapy documented in this encounter [facility] Work Phone: Evaluation note* Diagnosis Chronic kidney disease, stage 4 (severe) (Multi)- Primary 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, with long-term current use of insulin (Multi) Primary hypertension Unspecified essential hypertension Mixed 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) Stage 4 chronic kidney disease (Multi)- Primary Primary hypertension Unspecified essential hypertension 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, 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) Stage 4 chronic kidney disease (Multi)- Primary Primary hypertension Unspecified essential hypertension 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, 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) Stage 4 chronic kidney disease (Multi)- Primary Primary hypertension Unspecified essential hypertension Type 2 diabetes mellitus with stage 4 chronic kidney disease, with long-term current use of insulin (Multi) Thrombocytopenia (CMS-HCC) Unspecified thrombocytopenia 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) Myelodysplastic syndrome, 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Multi) Myelodysplastic syndrome, unspecified documented in this encounter [facility] Work Phone: Evaluation note* Diagnosis Chronic kidney disease, stage 4 (severe) (Multi)- Primary 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, with long-term current use of insulin (Multi) Primary hypertension Unspecified essential hypertension Mixed 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 Stage 4 chronic kidney disease (Multi)- Primary Primary hypertension Unspecified essential hypertension 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, 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 Stage 4 chronic kidney disease (Multi)- Primary Primary hypertension Unspecified essential hypertension 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, 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 Stage 4 chronic kidney disease (Multi)- Primary Primary hypertension Unspecified essential hypertension Type 2 diabetes mellitus with stage 4 chronic kidney disease, with long-term current use of insulin (Multi) Acute kidney injury superimposed on chronic kidney disease- Primary Acute kidney injury superimposed on chronic kidney disease Anemia, unspecified type Swelling of both lower extremities Localized edema Edema Tremor, essential Essential and other specified forms of tremor Peripheral vascular disease, 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CMS-HCC) Peripheral vascular disease, unspecified Stage 4 chronic kidney disease (Multi) CAD (coronary artery disease) Coronary atherosclerosis of unspecified type of vessel, [place] or graft Peripheral vascular disease, 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CMS-HCC) Peripheral vascular disease, unspecified Benign prostatic hyperplasia with urinary obstruction and other lower urinary tract symptoms Type 2 diabetes mellitus with stage 4 chronic kidney disease, with long-term current use of insulin (Multi) Hypertension Unspecified essential hypertension Mixed hyperlipidemia Other pancytopenia (Multi) Other pancytopenia Interstitial lung disease (Multi) Postinflammatory pulmonary fibrosis Acute on chronic anemia Swelling of both lower extremities documented in this encounter [facility] Work Phone: Evaluation note* Diagnosis Chronic kidney disease, stage 4 (severe) (Multi)- Primary 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, with long-term current use of insulin (Multi) Primary hypertension Unspecified essential hypertension Mixed 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 Stage 4 chronic kidney disease (Multi)- Primary Primary hypertension Unspecified essential hypertension 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, 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 Stage 4 chronic kidney disease (Multi)- Primary Primary hypertension Unspecified essential hypertension 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, 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 Stage 4 chronic kidney disease (Multi)- Primary Primary hypertension Unspecified essential hypertension Type 2 diabetes mellitus with stage 4 chronic kidney disease, with long-term current use of insulin (Multi) Acute kidney injury superimposed on chronic kidney disease- Primary Acute kidney injury superimposed on chronic kidney disease Anemia, unspecified type Swelling of both lower extremities Localized edema Edema Tremor, essential Essential and other specified forms of tremor Peripheral vascular disease, 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CMS-HCC) Peripheral vascular disease, unspecified Stage 4 chronic kidney disease (Multi) CAD (coronary artery disease) Coronary atherosclerosis of unspecified type of vessel, [place] or graft Peripheral vascular disease, 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CMS-HCC) Peripheral vascular disease, unspecified Benign prostatic hyperplasia with urinary obstruction and other lower urinary tract symptoms Type 2 diabetes mellitus with stage 4 chronic kidney disease, with long-term current use of insulin (Multi) Hypertension Unspecified essential hypertension Mixed hyperlipidemia Other pancytopenia (Multi) Other pancytopenia Interstitial lung disease (Multi) Postinflammatory pulmonary fibrosis Acute on chronic anemia Swelling of both lower extremities Anemia due to stage 4 chronic kidney disease Leukopenia, unspecified type Myelodysplastic syndrome, 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Multi) Myelodysplastic syndrome, unspecified Stage 4 chronic kidney disease (Multi) Thrombocytopenia (CMS-HCC) Unspecified thrombocytopenia Anemia due to stage 3b chronic kidney disease Neutropenia, unspecified type 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, unspecified vessel or lesion type, unspecified whether angina present Type 2 diabetes mellitus with stage 4 chronic kidney disease, with long-term current use of insulin (Multi) Mixed hyperlipidemia Primary hypertension Unspecified essential hypertension Tremor, essential Essential and other specified forms of tremor documented in this encounter [facility] Work Phone: Evaluation note* Diagnosis Chronic kidney disease, stage 4 (severe) (Multi)- Primary 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, with long-term current use of insulin (Multi) Primary hypertension Unspecified essential hypertension Mixed 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 Stage 4 chronic kidney disease (Multi)- Primary Primary hypertension Unspecified essential hypertension 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, 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 Stage 4 chronic kidney disease (Multi)- Primary Primary hypertension Unspecified essential hypertension 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, 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 Stage 4 chronic kidney disease (Multi)- Primary Primary hypertension Unspecified essential hypertension Type 2 diabetes mellitus with stage 4 chronic kidney disease, with long-term current use of insulin (Multi) Acute kidney injury superimposed on chronic kidney disease- Primary Acute kidney injury superimposed on chronic kidney disease Anemia, unspecified type Swelling of both lower extremities Localized edema Edema Tremor, essential Essential and other specified forms of tremor Peripheral vascular disease, 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[facility]-HCC) Peripheral vascular disease, unspecified Stage 4 chronic kidney disease (Multi) CAD (coronary artery disease) Coronary atherosclerosis of unspecified type of vessel, [place] or graft Peripheral vascular disease, 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CMS-HCC) Peripheral vascular disease, unspecified Benign prostatic hyperplasia with urinary obstruction and other lower urinary tract symptoms Type 2 diabetes mellitus with stage 4 chronic kidney disease, with long-term current use of insulin (Multi) Hypertension Unspecified essential hypertension Mixed hyperlipidemia Other pancytopenia (Multi) Other pancytopenia Interstitial lung disease (Multi) Postinflammatory pulmonary fibrosis Acute on chronic anemia Swelling of both lower extremities Primary hypertension- Primary Unspecified essential hypertension Stage 4 chronic kidney disease (Multi) Anemia due to stage 4 chronic kidney disease documented in this encounter [facility] Work Phone: Evaluation note* Diagnosis Chronic kidney disease, stage 4 (severe) (Multi)- Primary 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, with long-term current use of insulin (Multi) Primary hypertension Unspecified essential hypertension Mixed 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 Stage 4 chronic kidney disease (Multi)- Primary Primary hypertension Unspecified essential hypertension 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, 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 Stage 4 chronic kidney disease (Multi)- Primary Primary hypertension Unspecified essential hypertension 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, 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 Stage 4 chronic kidney disease (Multi)- Primary Primary hypertension Unspecified essential hypertension Type 2 diabetes mellitus with stage 4 chronic kidney disease, with long-term current use of insulin (Multi) Acute kidney injury superimposed on chronic kidney disease- Primary Acute kidney injury superimposed on chronic kidney disease Anemia, unspecified type Swelling of both lower extremities Localized edema Edema Tremor, essential Essential and other specified forms of tremor Peripheral vascular disease, 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CMS-HCC) Peripheral vascular disease, unspecified Stage 4 chronic kidney disease (Multi) CAD (coronary artery disease) Coronary atherosclerosis of unspecified type of vessel, [place] or graft Peripheral vascular disease, 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CMS-HCC) Peripheral vascular disease, unspecified Benign prostatic hyperplasia with urinary obstruction and other lower urinary tract symptoms Type 2 diabetes mellitus with stage 4 chronic kidney disease, with long-term current use of insulin (Multi) Hypertension Unspecified essential hypertension Mixed hyperlipidemia Other pancytopenia (Multi) Other pancytopenia Interstitial lung disease (Multi) Postinflammatory pulmonary fibrosis Acute on chronic anemia Swelling of both lower extremities Primary hypertension- Primary Unspecified essential hypertension Stage 4 chronic kidney disease (Multi) Anemia due to stage 4 chronic kidney disease Stage 4 chronic kidney disease (Multi)- Primary Thrombocytopenia (CMS-HCC) Unspecified thrombocytopenia Other pancytopenia (Multi) Other pancytopenia Primary hypertension Unspecified essential hypertension Type 2 diabetes mellitus with stage 4 chronic kidney disease, with long-term current use of insulin (Multi) Acute on chronic anemia documented in this encounter [facility] Work Phone: Evaluation note* Diagnosis Chronic kidney disease, stage 4 (severe) (Multi)- Primary 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, with long-term current use of insulin (Multi) Primary hypertension Unspecified essential hypertension Mixed 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 Stage 4 chronic kidney disease (Multi)- Primary Primary hypertension Unspecified essential hypertension 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, 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 Stage 4 chronic kidney disease (Multi)- Primary Primary hypertension Unspecified essential hypertension 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, 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 Stage 4 chronic kidney disease (Multi)- Primary Primary hypertension Unspecified essential hypertension Type 2 diabetes mellitus with stage 4 chronic kidney disease, with long-term current use of insulin (Multi) Acute kidney injury superimposed on chronic kidney disease- Primary Acute kidney injury superimposed on chronic kidney disease Anemia, unspecified type Swelling of both lower extremities Localized edema Edema Tremor, essential Essential and other specified forms of tremor Peripheral vascular disease, 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CMS-HCC) Peripheral vascular disease, unspecified Stage 4 chronic kidney disease (Multi) CAD (coronary artery disease) Coronary atherosclerosis of unspecified type of vessel, [place] or graft Peripheral vascular disease, 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CMS-HCC) Peripheral vascular disease, unspecified Benign prostatic hyperplasia with urinary obstruction and other lower urinary tract symptoms Type 2 diabetes mellitus with stage 4 chronic kidney disease, with long-term current use of insulin (Multi) Hypertension Unspecified essential hypertension Mixed hyperlipidemia Other pancytopenia (Multi) Other pancytopenia Interstitial lung disease (Multi) Postinflammatory pulmonary fibrosis Acute on chronic anemia Swelling of both lower extremities Primary hypertension- Primary Unspecified essential hypertension Stage 4 chronic kidney disease (Multi) 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 Leukopenia, unspecified type Myelodysplastic syndrome, 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Multi) Myelodysplastic syndrome, unspecified Stage 4 chronic kidney disease (Multi) Thrombocytopenia (CMS-HCC) Unspecified thrombocytopenia Anemia due to stage 3b chronic kidney disease Neutropenia, unspecified type 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, unspecified vessel or lesion type, unspecified whether angina present Type 2 diabetes mellitus with stage 4 chronic kidney disease, with long-term current use of insulin (Multi) Mixed hyperlipidemia Primary hypertension Unspecified essential hypertension Tremor, essential Essential and other specified forms of tremor documented in this encounter [facility] Work Phone: Evaluation note* Diagnosis Essential hypertension Unspecified essential hypertension 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 Type 2 diabetes mellitus with hyperglycemia, without long-term current use of insulin (HCC) Essential hypertension- Primary Unspecified essential hypertension Mixed 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 Essential hypertension- Primary Unspecified essential hypertension 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 Mixed hyperlipidemia Essential hypertension- Primary Unspecified essential hypertension 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 Mixed hyperlipidemia Dyslipidemia- Primary Other and unspecified hyperlipidemia Primary hypertension Unspecified essential hypertension Coronary artery disease, unspecified vessel or lesion type, unspecified whether angina present, unspecified whether [place] or transplanted heart [facility] Essential hypertension Unspecified essential hypertension 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 Type 2 diabetes mellitus with hyperglycemia, without long-term current use of insulin (HCC) Essential hypertension- Primary Unspecified essential hypertension Mixed 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 Essential hypertension- Primary Unspecified essential hypertension 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 Mixed hyperlipidemia Essential hypertension- Primary Unspecified essential hypertension 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 Mixed hyperlipidemia Dyslipidemia- Primary Other and unspecified hyperlipidemia Primary hypertension Unspecified essential hypertension Coronary artery disease, unspecified vessel or lesion type, unspecified whether angina present, unspecified whether [place] or transplanted heart [facility] Diagnosis Essential hypertension Unspecified essential hypertension 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 Type 2 diabetes mellitus with hyperglycemia, without long-term current use of insulin (HCC) Essential hypertension- Primary Unspecified essential hypertension Mixed 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 Essential hypertension- Primary Unspecified essential hypertension 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 Mixed hyperlipidemia Essential hypertension- Primary Unspecified essential hypertension 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 Mixed hyperlipidemia Onychomycosis- Primary Dermatophytosis of nail Peripheral vascular disease, unspecified [facility]. Velez [facility] April 06, 2023 8:16am Note Date/Time April 06, 2023 8:07a m [facility] Medical Records Department [address] [place] [address] H&P Exam - Hospitalist 04/06/23 08 MR#: [id number] Acct: [id number] Name: JEWEL CHAVES JUNIOR Rep #:[id number] : 1935 87 From: Mary Ellen Velez MD PCP: Dr. Palmira العراقي MD Statu s:ADM IN Location: [facility] [id number] HPI - General General Date of Admission: 04/06/23 Date of Service: 04/06/23 Chief Complaint: Black stools, dizzy HPI Narrative Jewel Chaves 87-year-old male history of coronary artery disease with stent placement 12 years ago, chronic bcell CLL, DMII, gout, hypertension, peptic ulcer disease on Pepcid and sucralfate. Had EGD performed several weeks ago andwas told he had lesions and presented to [facility] 04/06/2023 with black tarry stools. Is on Eliquis and was recently told to decrease his Eliquis dose. About a week and a half ago he was admitted to affiliated institution and had upper endoscopy which demonstrated several punctate ulcers in the antrum. He was discharged home and appears he is taking sucralfate twicedaily and famotidine twice daily. He says since that time he has had black stools though was on iron supplementation however 2 days ago he had 4 black bowel movements in a row and had 1 last night and has been intermittently dizzy when standing. Does have little bit of left lower abdominal discomfort that he reports is intermittent and present over the past month. Also has been sneezingbut denies any other complaints. [facility] Medical History (Updated 04/06/23 @ 08:[address] Mary Ellen Velez MD) Diabetes Hypertension Home Medications allopurinol 100 mg tablet 100 mg PO DAILY 04/06/23 [History Last Taken Unknown] amlodipine 10 mg tablet 10 mg PO DAILY 04/06/23 [History Last Taken Unknown] apixaban 2.5 mg tablet (Eliquis) 2.5 mg PO BID 04/06/23 [History Last Taken Unknown] aspirin 81 mg tablet 81 mg PO DAILY 04/06/23 [History Last Taken Unknown] atorvastatin 20 mg tablet 20 mg PO DAILY 04/06/23 [History Last Taken Unknown] famotidine 20 mg tablet 20 mg PO BID 04/06/23 [History Last Taken Unknown] ferrous sulfate 325 mg (65 mg iron) tablet 325 mg PO DAILY 04/06/23 [History Last Taken Unknown] furosemide 20 mg tablet 20 mg PO BID 04/06/23 [History Last Taken Unknown] gabapentin 300 mg capsule 300 mg PO BID 04/06/23 [History Last Taken Unknown] glimepiride 2 mg tablet 2 mg PO DAILY 04/06/23 [History Last Taken Unknown] metoprolol succinate 100 mg tablet,extended release 24 hr 100 mg PO DAILY 04/06/23 [History Last Taken Unknown] multivitamin 1 tab PO DAILY 04/06/23 [History Last Taken Unknown] sucralfate 1 gram tablet (Carafate) 1 g PO BID 04/06/23 [History Last Taken Unknown] Allergy/AdvReac Type Severity Reaction Status Date / Time metformin AdvReac Diarrhea Verified 04/06/23 05:49 Surgical History History of cholecystectomy History of hernia surgery Social History (Updated 04/06/23 @ 06:[address] Wilfrido Rodriguez MD) household members: spouse Smoking Status: Never smoker substance use type: does not use ROS ROS Narrative General: Denies fever/chills HENT: Denies headache, denies stuffy nose, denies sore throat, has been sneezing EYES: Denies changes in vision Resp: Denies cough, denies shortness of breath Cardiac: Denies chest pain GI: Some intermittent left lower quadrant discomfort, denies changes in bowel, denies nausea/vomiting : Denies changes in urination Extremity: Denies swelling MSK: Has some mild swelling bilateral lower extremities left greater than right which is chronic Neuro: Denies any numbness/tingling Heme: Denies any bleeding or bruising Skin: Denies rashes Psychiatric: No complaints voiced Vital Signs Vital Signs Vital Signs: 04/06/23 05:49 04/06/23 06:42 04/06/23 07:40 Temperature 96.4 F L 98 F Temperature Source Temporal Temporal Pulse Rate 73 70 Pulse Rate [Lying] 74 Pulse Rate [Sitting (for 1 minute prior to obtaining)] 75 Pulse Rate [Standing (for 1 minute prior to obtaining)] 74 Respiratory Rate 20 H 23 H Blood Pressure 132/57 H 122/61 H Blood Pressure [Lying] 134/59 H Blood Pressure [Sitting (for 1 minute prior to obtaining)] 130/56 H Blood Pressure [Standing (for 1 minute prior to obtaining)] 131/81 H Blood Pressure Mean 82 81 Blood Pressure Mean [Lying] 84 Blood Pressure Mean [Sitting (for 1 minute prior to obtaining)] 80 Blood Pressure Mean [Standing (for 1 minute prior to obtaining)] 97 Pulse Ox 98 94 Oxygen Delivery Method Room Air 04/06/23 07:59 Temperature Temperature Source Pulse Rate 71 Pulse Rate [Lying] Pulse Rate [Sitting (for 1 minute prior to obtaining)] Pulse Rate [Standing (for 1 minute prior to obtaining)] Respiratory Rate 22 H Blood Pressure 131/56 H Blood Pressure [Lying] Blood Pressure [Sitting (for 1 minute prior to obtaining)] Blood Pressure [Standing (for 1 minute prior to obtaining)] Blood Pressure Mean 81 Blood Pressure Mean [Lying] Blood Pressure Mean [Sitting (for 1 minute prior to obtaining)] Blood Pressure Mean [Standing (for 1 minute prior to obtaining)] Pulse Ox 96 Oxygen Delivery Method Room Air Weight Weight: 105 kg Body Mass Index (BMI) 35.2 Physical Exam Narrative General: Alert, oriented, no apparent distress HEENT: Atraumatic, normocephalic Eyes: Anicteric, normal conjunctiva, extraocular movements grossly intact Neck: Supple Respiratory: Clear to auscultation bilaterally, normal respiratory effort Cardiovascular: Regular rate and rhythm GI: Soft, minimal left lower quadrant tenderness without rebound, guarding, rigidity, Extremities: Trace to 1+ edema on right lower extremity and 1+ in left lower extremity which she reports is chronic Musculoskeletal: Moving all extremities Neuro: No overt focal neurological deficits Skin: No rashes appreciated Psych: Cooperative Results Lab / Micro Data Result Diagrams: 04/06/23 05:53 04/06/23 05:53 Labs: Laboratory Results - last 24 hr 04/06/23 05:53: WBC 2.6 L, RBC 2.06 L, Hgb 7.3 L, Hct 23.5 L, MCV 114.1 H, MCH 35.4 H, MCHC 31.1 L, RDW Std Deviation 87.9 H, RDW Coeff of Beto 21.4 H, Plt Count 102 L, MPV 11.5, Immature Gran % (Auto) 1.100 H, Neut % (Auto) 53.6, Lymph% (Auto) 36.9, [place] % (Auto) 5.7, Eos % (Auto) 2.3, Baso % (Auto) 0.4, Absolute Neuts (auto) 1.4 L, Absolute Lymphs (auto) 0.97, Nucleated RBC % 0, Anisocytosis2+ 04/06/23 05:53: Sodium 143, Potassium 4.2, Chloride 112 H, Carbon Dioxide 25.0, Anion Gap 6, BUN 43 H, Creatinine 2.25 H, Estim Creat Clear Calc 22.38, Est GFR (MDRD) Af Amer 36 L, Est GFR (MDRD) Non-Af 29 L, BUN/Creatinine Ratio 19.1, Glucose 163 H, Calcium 8.9 Micro: Microbiology 04/06/23 06:00 Stool Stool Occult Blood (SAMMY) - Final Occult Blood Positive Assessment & Plan Assessment/Plan (1) Acute GI bleeding: (2) Chronic lymphocytic leukemia of B-cell type: (3) Stage 3 chronic kidney disease: (4) Presence of stent in coronary artery in patient with coronary artery disease: PLAN: Plan #GIB, concern for upper etiology -Recent admit to [facility] hospital for acute on chronic anemia 2/2 upper GIB with endoscopy revealing several punctate ulcers in the antrum with H. pylori negative -Black tarry stools and dizzy upon standing -Hold Eliquis and aspirin -GI consulted -PPI and octreotide drips -Sucralfate -Type and cross -Hemoglobin 7.2, we will transfuse 1 unit of packed red blood cells as his threshold should be 8 given his history of coronary artery disease -Monitor H&H #Hx CAD w/ stents 12 years ago -Hold aspirin -Continue statin -Continue beta-tricia at half dose and can increase as tolerated -Patient reports being on Eliquis for his coronary artery disease and denies anyclots or history of A-fib, will attempt to review external records if available #Type 2 diabetes mellitus -Glucose checks and sliding scale insulin -Patient reports taking 22 units long-acting at bedtime, will start on slightly lower dose and titrate -Hold glimepiride #YU versus CKD unclear subtype -Creatinine 2.25 but no baseline in our system -Trend BMP -Avoid nephrotoxic agents #chronic b cell CLL -By history #Pancytopenia -No baseline available in our system, will attempt to search external records for further information #DVT ppx: SCDs Mary Ellen Velez MD Time spent in the patient's overall evaluation,decision-making process, review of diagnostic data, adjustment of management, discussion with other providers, nursing nursing and ancillary staff involved in patient's care documentation, 60minutes Charges/Coding Visit Charges Inpatient E&M: 24707 Init Hosp L2 04/06/23 0816 <Electronically signed by Mary Ellen Velez MD> Cosigner Signature (if applicable): CC: Dr. Palmira العراقي MD; Dr. Mary Ellen Velez MD~ Signed [facility] Work Phone: History of Present illness [facility]ativeL[facility] oxygen [facility] Work [facility]: History of Present illness Narrative* He presents today with his for routine check DM-HgbA1c is good 6.2%. CKD-3- stable. HTN-stableat goal. He is on lisinopril and amlodipine. Hyperlpidemia-he is taking atorvastatin. His medication list has it crossed off. His registrar museum thought he stopped it and asked him to keep taking it. As far as I know he has not stopped it. DWAIN-on CPAP no oxygen at this time. PUlse ox 92%.. Will have [facility] do overnight oxygen check. * He continues to complain of numbness of his first 3 fingers, it is getting worse and he is having difficulty with tasks. 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 He is not interested in surgery. I am not sure there is much else he can do. He has had EMG 2019. Recommended extension specialist consultation. * He is also complaining of decrease energy. He is mildly anemic. He is not having black or bloody stools. He did require oxygen with his CPAP in the past. and stopped using that. But had COVID and needed back on oxygen for a while. -[facility] Work Phone: History of Present illness Narrative* He presents today with his for routine check DM-HgbA1c is good 6.2%. CKD-3- stable. HTN-stableat goal. He is on lisinopril and amlodipine. Hyperlpidemia-he is taking atorvastatin. His medication list has it crossed off. His registrar museum thought he stopped it and asked him to keep taking it. As far as I know he has not stopped it. DWAIN-on CPAP no oxygen at this time. PUlse ox 92%.. Will have L jorgee do overnight oxygen check. * He continues to complain of numbness of his first 3 fingers, it is getting worse and he is having difficulty with tasks. 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 He is not interested in surgery. I am not sure there is much else he can do. He has had EMG 2019. Recommended extension specialist consultation. * He is also complaining of decrease energy. He is mildly anemic. He is not having black or bloody stools. He did require oxygen with his CPAP in the past. and stopped using that. But had COVID and needed back on oxygen for a while. -[facility] Work Phone: History of Present illness Narrative* The patient is being seen for the subsequent annual wellness visit. * Past Medical, Surgical and Family History: reviewed and updated in chart. * Interval History: Patient has not been hospitalized previously. * Medications and Supplements: Medications and supplements, including calcium and vitamins reviewed and updated in chart. * No, the patient is not using opioids. * Health Risk Assessment:. Paper HRA completed by patient and scanned into chart. * Patient Self Assessment of Health Status: good. * Tobacco use: Non-User * Alcohol use: Non-User * Illicit drug use: Non-User * Current diet: well balanced diet, does consume adequate fluids and does consume caffeine. * Exercise Frequency: infrequently. * Depression/Suicide Screening: . * During the past 2 weeks, the patient has not felt down, depressed or hopeless. * During the past 2 weeks, the patient has not felt little interest or pleasure in doing things. * Hearing Impairment: Patient has slight hearing impairment. * Cognitive Impairment: Cognitive impairment was observed. * Bathing: performs independently. * Dressing: performs independently. * Walking: performs independently. * Managing Finances: performs independently. * Shopping: performs independently. * Managing Medications: performs independently. * Housework / Basic Home Maintenance: performs independently. * Falls Risk Screening:. JEWEL has not fallen in the last 6 months. * Home safety risk factors: none. * Advance directives:. Patient has living will. Patient has healthcare POA. [facility] Work Phone: History of Present illness Narrative* The patient is being seen for the subsequent annual wellness visit. * Past Medical, Surgical and Family History: reviewed and updated in chart. * Interval History: Patient has not been hospitalized previously. * Medications and Supplements: Medications and supplements, including calcium and vitamins reviewed and updated in chart. * No, the patient is not using opioids. * Health Risk Assessment:. Paper HRA completed by patient and scanned into chart. * Patient Self Assessment of Health Status: good. * Tobacco use: Non-User * Alcohol use: Non-User * Illicit drug use: Non-User * Current diet: well balanced diet, does consume adequate fluids and does consume caffeine. * Exercise Frequency: infrequently. * Depression/Suicide Screening: . * During the past 2 weeks, the patient has not felt down, depressed or hopeless. * During the past 2 weeks, the patient has not felt little interest or pleasure in doing things. * Hearing Impairment: Patient has slight hearing impairment. * Cognitive Impairment: Cognitive impairment was observed. * Bathing: performs independently. * Dressing: performs independently. * Walking: performs independently. * Managing Finances: performs independently. * Shopping: performs independently. * Managing Medications: performs independently. * Housework / Basic Home Maintenance: performs independently. * Falls Risk Screening:. JEWEL has not fallen in the last 6 months. * Home safety risk factors: none. * Advance directives:. Patient has living will. Patient has healthcare POA. * He does not like the taste of the powder prevalite, it works well for his diarrhea. He is requesting a pill. * He complains of continued tremors. He did not tolerate higher dose of primidone in the past. At first he denied he was on the medicine and then did not remember Dr. Kuhn. He then did recall these things, and denied issues with his memory. He has recently been started on gabapentin. [facility] Work Phone: History of Present illness Narrative* He is here for follow-up secondary to chronic kidney disease * At his last visit we continued to notice a decline in his renal function he also has slight hyperkalemia and his blood pressure was a little bit on the low side and so we stopped his lisinopril and we rechecked his blood work to make sure that we are trying to keep his renal function from decliningfurther * His urine protein creatinine ratio at that time was 0.15 and so wanted to try to get renal functionback down towards a more reasonable range * His creatinine had went as high as 2.81 and then a few days later it was 2.69. * He had blood work drawn on December 27 his potassium is down to 4.7 his glucose is 159 the rest of his electrolytes look pretty good bicarb is 29 * His BUN is 40 with a creatinine of 2.04 with an estimated GFR of 31 and this is much much better for him at this time * He is feeling well. * Swelling is stable. * Sugar is running pretty up a little * No other major complaints at this [facility]. [facility] Work Phone: History of Present illness Narrative* He presents today for follow up of CPAP supplies. He has been getting swelling and bruising under his left eye from the CPAP head gear and mask. He has used this style for several years. He recently got a new set up from [facility]. He has continued using it. He does have oxygen hooked up to it at night. He has not had a pulse ox check in a while. He does complain of getting fatigued with activity since having COVID in 2019. He gets tired and has to quit and rest, then sometimes can go back. He did discuss this with cardiology today. * Pt is on Eliquis for a DVT and PE. Dr. Meredith kept pt on meds. He had to see [facility], they did not know why pt was on med and he could not tell them. They also thought that he wasn't takingatorvastatin and that bile acid sequestrant was causing diarrhea. He has been on atorvastatin for years. He was started on colesevelam for diarrhea and it does help with it. No diarrhea since being on colesevelam. It has significantly improved his quality of life. His lipids were checked in 01/2022.He does have elevated triglycerides and low HDL. He is diabetic. * He has been seeing hematology for abnormal CBC, they are monitoring for now. * Oxygen into CPAP. Will have [facility] check overnight pulse ox. * Essential tremors not worse, but not better. On primidone, did not tolerate higher dose. He does not want to see neurology. [facility] Work Phone: History of Present illness Narrative* Patient who previously saw [facility] here for routine check up. He has h/o HTN, DM, CKD (Dr Martin), CAD ([facility]), high chol, thrombocytopenia/anemia (Dr Parra), tremor, DWAIN, h/o PE. * He c/o tremor - he has been on primidone - 3 pills twice a day - at one point increased to 4 but hethinks he had some side effects with that and it was cut back down to 3 pills twice a day. He also has had issues with numbness in his fingers seems to be getting a little worse. He is interested in seeing a neurologist. * He had an A1C done recently and it was up at 8.3 - we will increase the glimepiride. * He also has several skin lesions - there are a few on his neck that are irritated. [facility] Work Phone: History of Present illness NarrativeJan is seen today in hospital follow-up. Was hospitalized with acute anemia felt to have GI bleeding. Upper endoscopy revealed several punctate ulcers throughout the antrum H. pylori biopsies were negative. 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 He remains chronically anemic blood work this morning shows a hemoglobin of 7.7 he is having no evidence of GI bleeding denies any melanic stools. No gross rectal bleeding.[facility] [address] Work Phone: Reason for referral (narrative)* Consultation (Routine) - Authorized Specialty Diagnoses / Procedures Referred By Gucci t Referred To Contact Primary Care Diagnoses Anemia, unspecified type Gastric ulcer, unspecified chronicity, unspecified whether gastric ulcer hemorrhage or perforation present 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, unspecified vessel or lesion type, unspecified whether angina present Type 2 diabetes mellitus with stage 3 chronic kidney disease, with long-term current use of insulin, unspecified whether stage 3a or 3b CKD (CMS/HCC) Primary hypertension Mixed hyperlipidemia Procedures Follow Up In Primary Care - [facility] Palmira العراقي MD [address] [facility] [place] [address] Referral ID Status Reason Start Date Expiration Date V isits Requested Visits Authorized [id number] Authorized 05/25/2023 11/21/2023 1 1 [facility] Work Phone: Rehvxx for referral (narrative)* Consultation (Routine) - Authorized Specialty Diagnoses / Procedures Referred By Contac t Referred To Contact Primary Care Diagnoses 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) Leukopenia, unspecified type 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, unspecified vessel or lesion type, unspecified whether angina present Type 2 diabetes mellitus with stage 4 chronic kidney disease, with long-term current use of insulin (CMS/HCC) Neutropenia, unspecified type (CMS/HCC) Primary hypertension Mixed hyperlipidemia DWAIN on CPAP Thrombocytopenia (CMS/HCC) Tremor, essential Essential (primary) hypertension Type 2 diabetes mellitus with diabetic chronic kidney disease (CMS/HCC) Chronic kidney disease, stage 3 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CMS/HCC) Procedures Follow Up In Primary Care - Medicare Annual Palmira العراقي MD [address] [facility] [place] [address] Referral ID Status Reason Start Date Expiration Date V isits Requested Visits Authorized [id number] Authorized 12/23/2023 12/22/2024 1 1 [facility] Work Phone: Rekdlm for referral (narrative)* Consultation (Routine) - Authorized Specialty Diagnoses / Procedures Referred By Contac t Referred To Contact Nephrology Diagnoses Stage 4 chronic kidney disease (CMS/HCC) Procedures Follow Up In Nephrology Elke Martin APRN-CNP, DNP [address] [place] [address] Referral ID Status Reason Start Date Expiration Date V isits Requested Visits Authorized [id number] Authorized 02/03/2024 02/02/2025 1 1 [facility] Work Phone: Reason for referral (narrative)* Consultation (Routine) - Authorized Specialty Diagnoses / Procedures Referred By Contac t Referred To Contact Primary Care Procedures Follow Up In Primary Care - Established Palmira العراقي MD [address] [facility] [place] [address] Referral ID Status Reason Start Date Expiration Date V isits Requested Visits Authorized [id number] Authorized 03/31/2024 03/31/2025 1 1 [facility] Work Phone: Retlmi for referral (narrative)* Consultation (Routine) - Authorized Specialty Diagnoses / Procedures Referred By Contac t Referred To Contact Nephrology Diagnoses Stage 4 chronic kidney disease (Multi) Procedures Follow Up In Nephrology Elke Martin APRN-CNP, DNP [address] [facility] [address] [place] [address] Referral ID Status Reason Start Date Expiration Date V isits Requested Visits Authorized [id number] Authorized 08/04/2024 08/04/2025 1 1 [facility] Work Phone: Reomts for referral (narrative)* Consultation (Routine) - Authorized Specialty Diagnoses / Procedures Referred By Contac t Referred To Contact Primary Care Procedures Follow Up In Primary Care - Established Palmira العراقي MD [address] [facility] [address] [place] [address] Phone: tel: fax: Referral ID Status Reason Start Date Expiration Date V isits Requested Visits Authorized [id number] Authorized 10/03/2024 10/03/2025 1 1 [facility] Work Phone: Repmxa for referral (narrative)No reason for referral [facility] Work [facility]: Reason for visit Narrative* Consultation (Routine) - Authorized Specialty Diagnoses / Procedures Referred By Gucci t Referred To Contact Primary Care Diagnoses Anemia, unspecified type Gastric ulcer, unspecified chronicity, unspecified whether gastric ulcer hemorrhage or perforation present 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, unspecified vessel or lesion type, unspecified whether angina present Type 2 diabetes mellitus with stage 3 chronic kidney disease, with long-term current use of insulin, unspecified whether stage 3a or 3b CKD (CMS/HCC) Primary hypertension Procedures Follow Up In Primary Care Palmira العراقي MD [address] [place] [address] Referral ID Status Reason Start Date Expiration Date V isits Requested Visits Authorized [id number] Authorized 04/24/2023 10/21/2023 1 1 [facility] Work Phone: reason for visit Narrative* Consultation (Routine) - Authorized Specialty Diagnoses / Procedures Referred By Gucci gonzalez Referred To Contact Primary Care Diagnoses Anemia, unspecified type Gastric ulcer, unspecified chronicity, unspecified whether gastric ulcer hemorrhage or perforation present 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, unspecified vessel or lesion type, unspecified whether angina present Type 2 diabetes mellitus with stage 3 chronic kidney disease, with long-term current use of insulin, unspecified whether stage 3a or 3b CKD (CMS/HCC) Primary hypertension Mixed hyperlipidemia Procedures Follow Up In Primary Care - [facility] Palmira العراقي MD [address] [place] [address] Referral ID Status Reason Start Date Expiration Date V isits Requested Visits Authorized [id number] Authorized 05/25/2023 11/21/2023 1 1 [facility] Work Phone: reason for visit Narrative* Consultation (Routine) - Authorized Specialty Diagnoses / Procedures Referred By Gucci t Referred To Contact Primary Care Procedures Follow Up In Primary Care - [facility] Palmira العراقي MD [address] [facility] [place] [address] Referral ID Status Reason Start Date Expiration Date V isits Requested Visits Authorized [id number] Authorized 09/17/2023 09/16/2024 1 1 [facility] Work Phone: reason for visit Narrative* Consultation (Routine) - Authorized Specialty Diagnoses / Procedures Referred By Gucci gonzalez Referred To Contact Primary Care Diagnoses 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) Leukopenia, unspecified type 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, unspecified vessel or lesion type, unspecified whether angina present Type 2 diabetes mellitus with stage 4 chronic kidney disease, with long-term current use of insulin (Multi) Neutropenia, unspecified type ([facility]) Primary hypertension Mixed hyperlipidemia DWAIN on CPAP Thrombocytopenia ([facility]) Tremor, essential Essential (primary) hypertension Type 2 diabetes mellitus with diabetic chronic kidney disease (Multi) Chronic kidney disease, stage 3 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Multi) Procedures Follow Up In Primary Care - Medicare Annual Palmira العراقي MD [address] [facility] [place] [address] Referral ID Status Reason Start Date Expiration Date V isits Requested Visits Authorized [id number] Authorized 12/23/2023 12/22/2024 1 1 [facility] Work Phone: reason for visit Narrative* Imaging (Routine) - Authorized Specialty Diagnoses / Procedures Referred By Gucci t Referred To Contact Radiology Diagnoses Interstitial lung disease (Multi) Procedures CT chest wo IV contrast Antione Harp, DO [address] [place] [address] Phone: tel: fax: Referral ID Status Reason Start Date Expiration Date Visits Requested Visits Authorized [id number] Authorized Perform Procedure 07/12/2024 07/12/2025 1 1 [facility] Work Phone: Reason for visit Narrative* Auth/Cert (Routine) Specialty Diagnoses / Procedures Referred By Contac t Referred To Contact Diagnoses Swelling of both lower extremities Acute kidney injury superimposed on chronic kidney disease Anemia, unspecified type Procedures na Elaine Mauricio MD [address] [place] [address] Phone: tel: fax: [place] [address] [address] [place] [address] Phone: tel: Referral ID Status Reason Start Date Expiration Date Visits Re quested Visits Authorized [id number] 1 1 [facility] Work Phone: Assessments Diagnosis Coronary artery disease invo lving kiowa tribe coronary artery of kiowa tribe heart without angina pectoris - Primary Essential hypertension Unspecified essential hypertension Mixed hyperlipidemia Diagnosis Essential hypertension- Primary Unspecified essential hypertension 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 Mixed hyperlipidemia Diagnosis Essential hypertension Unspecified essential hypertension 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 Mixed hyperlipidemia Diagnosis Carpal tunnel syndrome, bilateral- Primary Carpal tunnel syndrome Tingling of both upper extremities Ulnar neuropathy at elbow, unspecified laterality Diagnosis Essential hypertension Unspecified essential hypertension 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 Type 2 diabetes mellitus with hyperglycemia, without long-term current use of insulin (HCC) Diagnosis Essential hypertension- Primary Unspecified essential hypertension Mixed 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 Diagnosis 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 Essential hypertension Unspecified essential hypertension Mixed hyperlipidemia Diagnosis 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 Essential hypertension Unspecified essential hypertension Mixed hyperlipidemia Reason for Referral Status Reason Specialty Diagnoses / Procedures Re ferred By Contact Referred To Contact Authorized Cardiology Diagnoses Essential hypertension 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 Mixed hyperlipidemia Procedures Echocardiogram complete Aris Meredith MD [address] [address] Status Reason Specialty Diagnoses / Procedures Re ferred By Contact Referred To Contact Pending Review Cardiology Diagnoses Essential hypertension 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 Mixed hyperlipidemia Procedures Echocardiogram complete Aris Meredith MD [address] [facility] [address] [place] [address] Status Reason Specialty Diagnoses / Procedures Referred By Contact Referred To Contact Authorized Specialty Services Required/Patien t's Best Interest Neurology Diagnoses Tingling of both upper extremities Jae Gannon Paula, PRECISION THREAD GRINDER OPERATOR [address] [place] [address] Mariah Can MD [address] [place] [address] Status Reason Specialty Diagnoses / Procedures Re ferred By Contact Referred To Contact New Request Radiology Diagnoses 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 Essential hypertension Mixed hyperlipidemia Procedures NM Myocardial Perfusion Multiple SPECT Aris Meredith MD [address] [address] Status Reason Specialty Diagnoses / Procedures Re ferred By Contact Referred To Contact Closed Radiology Diagnoses 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 Essential hypertension Mixed hyperlipidemia Procedures NM Myocardial Perfusion Multiple SPECT Aris Meredith MD [address] [address] Status Reason Specialty Diagnoses / Procedures Referred By Contact Referred To Contact Authorized Cardiology Diagnoses 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 Procedures ECG 12 lead Aris Meredith MD [address] [address] Specialty Diagnoses / Procedures Referred By Contac t Referred To Contact Radiology Diagnoses 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) Leukopenia, unspecified type Procedures CT chest abdomen pelvis wo IV contrast CT chest wo IV contrast Elaine Betts BUSINESS ANALYTICS ANALYST-PRECISION THREAD GRINDER OPERATOR [address] [place] [id number] Referral ID Status Reason Start Date Expiration Date Visits Requested Visits Authorized [id number] Authorized Perform Procedure 01/12/2024 01/11/2025 1 1 Specialty Diagnoses / Procedures Referred By Contac t Referred To Contact Radiology Diagnoses Anemia due to stage 4 chronic kidney disease ([facility]) Leukopenia, unspecified type Myelodysplastic syndrome, 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[facility]) Procedures IR biopsy bone marrow CT bone marrow biopsy and aspirations only Elaine Betts BUSINESS ANALYTICS ANALYST-PRECISION THREAD GRINDER OPERATOR [address] [place] [id number] Referral ID Status Reason Start Date Expiration Date Visits Requested Visits Authorized [id number] Pending Review Perform Procedure 01/12/2024 01/11/2025 1 1 Specialty Diagnoses / Procedures Referred By Contac t Referred To Contact Radiology Diagnoses Pulmonary fibrosis ([facility]/HCC) Procedures CT chest high resolution Antione Harp DO [address] [place] [address] Referral ID Status Reason Start Date Expiration Date Visits Requested Visits Authorized [id number] Pending Review Perform Procedure 01/28/2024 01/27/2025 1 1 Specialty Diagnoses / Procedures Referred By Contac t Referred To Contact Diagnoses Pulmonary fibrosis ([facility]) Procedures Pulmonary Stress Test (6 Min. Walk) Antione Harp DO [address] [place] [id number] Referral ID Status Reason Start Date Expiration Date V isits Requested Visits Authorized [id number] Pending Review 01/28/2024 01/27/2025 1 1 Specialty Diagnoses / Procedures Referred By Contac t Referred To Contact Diagnoses Pulmonary fibrosis ([facility]) Procedures Complete Pulmonary Function Test Pre/Post Bronchodialator (Spirometry Pre/Post/DLCO/Lung Volumes) Antione Harp DO [address] [place] [address] Referral ID Status Reason Start Date Expiration Date V isits Requested Visits Authorized [id number] Pending Review 01/28/2024 01/27/2025 1 1 Specialty Diagnoses / Procedures Referred By Contac t Referred To Contact Radiology Diagnoses 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) Leukopenia, unspecified type Myelodysplastic syndrome, 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Multi) Procedures IR biopsy bone marrow CT bone marrow biopsy and aspirations only Elaine Betts S, BUSINESS ANALYTICS ANALYST-PRECISION THREAD GRINDER OPERATOR [address] [place] [address] Specialty Diagnoses / Procedures Referred By Contac t Referred To Contact Radiology Diagnoses Interstitial lung disease (Multi) Procedures CT chest wo IV contrast Antione Harp, DO [address] [place] [address] Referral ID Status Reason Start Date Expiration Date Visits Requested Visits Authorized [id number] Pending Review Perform Procedure 03/25/2024 03/25/2025 1 1 Referral ID Status Reason Start Date Expiration Date Visits Requested Visits Authorized [id number] Authorized Perform Procedure 03/25/2024 03/25/2025 1 1 Referral ID Status Reason Start Date Expiration Date Visits Requested Visits Authorized [id number] Authorized Perform Procedure 07/12/2024 07/12/2025 1 1 Instructions Name Dates Details Instructions not documented Name Dates Details Instructions not documented Name Dates Details Instructions not documented Name Dates Details Instructions not documented Name Dates Details Instructions not documented Name Dates Details Instructions not documented Name Dates Details Instructions not documented Name Dates Details Instructions not documented Name Dates Details Instructions not documented Name Dates Details Instructions not documented Name Dates Details Instructions not documented Name Dates Details Instructions not documented Name Dates Details Instructions not documented Name Dates Details Instructions not documented Name Dates Details Instructions not documented Name Dates Details Instructions not documented Name Dates Details Instructions not documented Name Dates Details Instructions not documented History of Present Illness * Aris Meredith MD - 11/11/2018 12:29 PM EST Formatting of this note may be different from the original. I saw Jewel Chaves in follow up in the office on 11/11/18. Jewel is doing reasonably well following his complicated hospitalization at this summer with a left-sided DVT and multiple pulmonary emboli. He presented with several weeks of dyspnea but no other symptoms and thrombotic disease is identified. He is remained on Eliquis and is done quite well with no recurrent issues. It is unclear whether an etiology for this event was identified as it did not appear to be provoked. Of concern, an echocardiogram performed during his hospitalization demonstrated significant right-sided dysfunction with moderate pulmonary hypertension but normal left-sided function. He is tolerated his medical regimen well without side effects including triple drug therapy with aspirin, clopidogrel and Eliquis. Review of Systems: Documented in Medical Record Physical Exam Vital Signs: BP (!) 157/81 Pulse 80 Ht 5' 8 Wt 110.6 kg (243 lb 14.4 oz) SpO2 93% BMI 37.08 kg/m General: No acute distress, alert, and oriented x3. Skin: Normal turgor, well-hydrated, HEENT: Normocephalic,EOMI Neck: Supple, no JVD, no bruits Cardiovascular: Regular rate and rhythm. No murmurs gallops or rubs. No JVD. Respiratory: Clear to auscultation and percussion, no rales, rhonchi or wheezes Abdominal: Soft, nontender, nondistended, without masses or bruits. Extremities : No clubbing cyanosis or edema Neurological: Cranial nerves grossly intact. No focal neurological deficits noted. Psych: Normal mood and affect. Allergy Information: I have reviewed the patient's allergies. Patient has no known allergies. Home Medications: Outpatient Prescriptions as of 11/11/2018 Medication Sig aspirin 81 mg chewable tablet Chew 81 mg daily. atorvastatin (LIPITOR) 20 MG tablet Take 20 mg by mouth daily . ELIQUIS 5 mg Tab Take 5 mg by mouth 2 (two) times a day . furosemide (LASIX) 40 MG tablet Take 40 mg by mouth daily . glimepiride (AMARYL) 1 MG tablet Take 1 mg by mouth every morning before breakfast. lisinopril (PRINIVIL,ZESTRIL) 10 MG tablet Take 10 mg by mouth 2 (two) times a day. magnesium L-lactate (MAGTAB) 84 mg TbER Take 84 mg by mouth daily. primidone (MYSOLINE) 50 MG tablet Take 50 mg by mouth 2 (two) times a day . PV W-O DANITZA/FERROUS FUMARATE/FA (M-VIT ORAL) Take by mouth daily. ranitidine (ZANTAC) 150 MG tablet Take 150 mg by mouth 2 (two) times a day . metoprolol succinate (TOPROL XL) 100 MG 24 hr tablet Take 1 (one) tablet (100 mg total) by mouth daily . Assessment/Plan: Symptomatically this pleasant gentleman appears to be doing well following the event this past summer. I arranged to obtain his records from his hospitalization and also arranged for a repeat echocardiogram to reevaluate his right heart anatomy. In addition, I discontinued his clopidogrel and had him remain only on Eliquis and aspirin. Given his persistently elevated blood pressure and heart rateI also increased his metoprolol succinate to 100 mg nightly. I made no other changes in his medicines and will continue to follow him closely. Thanks again for allowing us to participate in his care. * Elaine Chavarria MA - 11/11/2018 12:09 PM EST Review of Systems Constitution: Positive for malaise/fatigue. Negative for diaphoresis, weight gain and weight loss. HENT: Negative for hearing loss, nosebleeds and tinnitus. Eyes: Positive for visual disturbance. Negative for blurred vision. Cardiovascular: Positive for leg swelling. Negative for chest pain, claudication, cyanosis, dyspneaon exertion, irregular heartbeat, near-syncope, orthopnea, palpitations, paroxysmal nocturnal dyspnea and syncope. Sleeps on elevated pillow Respiratory: Positive for snoring. Negative for hemoptysis and shortness of breath. Endocrine: Negative for cold intolerance and heat intolerance. Hematologic/Lymphatic: Bruises/bleeds easily. Skin: Negative for flushing, poor wound healing and rash. Musculoskeletal: Negative for back pain, muscle weakness and myalgias. Gastrointestinal: Positive for change in bowel habit. Negative for abdominal pain, melena, nausea and vomiting. Genitourinary: Negative for decreased libido and hematuria. Neurological: Negative for loss of balance and numbness. Psychiatric/Behavioral: Negative for memory loss. The patient is nervous/anxious. in this encounter* Mariah Can MD - 01/19/2019 9:15 AM EDT Procedures ELECTROMYOGRAPHY (Nerve Conduction Study/Needle EMG) Brief History: Patient with amount of finger paresthesias. He denies any neck pain but he is diabetic. Plan: The study is design to evaluate for radiculopathy, plexopathy, entrapment neuropathy, median or ulnar neuropathy. Indication, risk, side effects, and alternatives were explained. Patient agreedto proceed. Please request raw data if needed. EMG Summary: The bilateral median motor nerve conduction study showed prolonged distal latency, decreased left amplitude and decreased bilateral conduction velocities. Left median sensory nerve conduction study showed absent responses. The bilateral ulnar motor nerve conduction studies show prolonged distal latency, normal amplitude,and decreased conduction velocity on the left forearm and across the elbow. The left ulnar sensory nerve conduction study showed absent response well to the right ulnar sensory nerve conduction studies show prolonged distal latency and decreased amplitude. The bilateral radial sensory nerve conduction study were normal. Needle EMG of the muscles tested showed no abnormal spontaneous activity. Normal motor unit action potentials and recruitment patterns were seen. Impression: This is an abnormal EMG. 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 There is NO electrodiagnostic evidence ofbilateral cervical radiculopathy or brachial plexopathy. in this encounter* Rosalina Woodward, LIZZ - 02/10/2019 8:55 AM EDT [address] [id number] Assessment & Plan: Hypertension B/P essentially at goal, 138/81. Home B/P readings generally in the 120's/60's. Jewel saw Dr. Martin on Thursday and he was pleased with his blood pressure. Dr. Martin made medication adjustments. Lisinopril was DC'd. Dr. Martin will continue to follow labs. 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 He cooks, performs housekeeping, shops, and ADL's without any chest pain/discomfort. He walks about 15 to his brother's house when the weather permits. He has noticed he gets mildly YUAN with exertion. He is wearing his CPAP nightly, has chronic 2 pillow orthopnea. He denies palpitations, lightheadedness, syncope or near-syncopal episodes. 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 We discussed monitoring his activity tolerance. If it declines so that he ethier quits performing activities to prevent symptoms, or notices a change or increase in symptoms, he verbalized understanding to seek medical attention. ECHO 11/2018: LVEF Normal, RVEF mildly depressed, mild AR, moderate pulmonary hypertension. Medications include: statin, BB, ASA, Eliquis (hv DVT/PE) Type 2 diabetes mellitus (HCC) Currently taking Amaryl 1 mg daily. Not taking metformin due to intolerance. Denies hypoglycemia. States fasting BG's at home generally 180-200's mg/dl and pre-dinner 160's mg/dl. We discussed goal BG's. Current A1C not available. Jewel would be a candidate for SGLT2 or GLP1. He would like to discuss with Dr. Martin or Jae Gannon CNP. I did review S/S hypoglycemia with Jewel and asked him to get several packs of glucose tablets to have for his vehicle and at home. We discussed how to treat hypoglycemia as well. Orders Placed This Encounter Subjective: Jewel Chaves is a 83 y.o. male seen in the office today for Follow-up (f/u per Viri. medication change. pt has blood pressure recordings with him since last OV ) HPI: Jewel Chaves is here today for follow up. He was seen by Dr. Meredith in November and medication metoprolol was increased for improved HR and B/P control. Jewel states he is feeling good and is looking forward to getting outside to start working in the yard. He is a recent and is taking care of household duties including cooking for himself. He does admit to eating out and states he is aware of the need to limit his sodium intake. Jewel is also following with Dr. Martin, who he saw on 02/07/19. Medications have been further adjusted and Jewel is no longer taking lisinopril. Histories: Past Medical History: Diagnosis Date Acid reflux Acute pancreatitis CAD (coronary artery disease) Edema pancreatic Gallstone Heart attack (HCC) 04/26/2009 Hyperlipidemia Hypertension Lower extremity edema 1+ Umbilical hernia Varicosities venous Past Surgical History: Procedure Laterality Date CARDIAC CATHETERIZATION 05/03/2009 NO EF ASSESSED CORONARY ANGIOPLASTY WITH STENT PLACEMENT 05/03/2009 KERMIT of RCA, KERMIT RIGHT PDA, CORONARY ANGIOPLASTY WITH STENT PLACEMENT 05/01/2009 KERMIT LAD HERNIA REPAIR 1988 Inguinal Family History Problem Relation Age of Onset Cancer Mother Liver disease Father Lung cancer Brother Social History Tobacco Use Smoking status: Never Smoker Smokeless tobacco: Never Used Substance Use Topics Alcohol use: No Alcohol/week: 0.0 oz Drug use: No Outpatient Medications as of 02/10/2019 Medication Sig amLODIPine-benazepril (LOTREL) 10-20 mg per capsule Take 1 capsule by mouth daily In the morning . aspirin 81 MG EC tablet Chew 81 mg daily. atorvastatin (LIPITOR) 20 MG tablet Take 20 mg by mouth daily . cholecalciferol, vitamin D3, (VITAMIN D3 ORAL) Take 1 tablet by mouth daily . cholestyramine-aspartame (cholestyramine light) 4 gram PwPk Take by mouth . cyanocobalamin, vitamin B-12, (VITAMIN B12 ORAL) Take 1 tablet by mouth daily . ELIQUIS 5 mg Tab Take 5 mg by mouth 2 (two) times a day . furosemide (LASIX) 40 MG tablet Take 40 mg by mouth daily . glimepiride (AMARYL) 1 MG tablet Take 1 mg by mouth every morning before breakfast. metoprolol succinate (TOPROL XL) 100 MG 24 hr tablet Take 1 (one) tablet (100 mg total) by mouth daily . (Patient taking differently: Take 100 mg by mouth nightly .) primidone (MYSOLINE) 50 MG tablet Take 50 mg by mouth 2 (two) times a day . PV W-O DANITZA/FERROUS FUMARATE/FA (M-VIT ORAL) Take by mouth daily. ranitidine (ZANTAC) 150 MG tablet Take 150 mg by mouth 2 (two) times a day . [DISCONTINUED] lisinopril (PRINIVIL,ZESTRIL) 10 MG tablet Take 10 mg by mouth daily In th evening . [DISCONTINUED] magnesium L-lactate (MAGTAB) 84 mg TbER Take 84 mg by mouth daily. Allergies Allergen Reactions Metformin Other (See Comments) and Diarrhea Review of Systems Constitution: Negative for diaphoresis, malaise/fatigue, weight gain and weight loss. HENT: Negative for hearing loss, nosebleeds and tinnitus. Eyes: Positive for blurred vision. Negative for visual disturbance. Cardiovascular: Positive for dyspnea on exertion, leg swelling and orthopnea. Negative for chest pain, claudication, cyanosis, irregular heartbeat, near- syncope, palpitations, paroxysmal nocturnal dyspnea and syncope. Sleeps on elevated pillow chronically Respiratory: Positive for snoring. Negative for hemoptysis and shortness of breath. Endocrine: Negative for cold intolerance and heat intolerance. Hematologic/Lymphatic: Does not bruise/bleed easily. Skin: Negative for flushing, poor wound healing and rash. Musculoskeletal: Negative for back pain, muscle weakness and myalgias. Gastrointestinal: Negative for abdominal pain, change in bowel habit, melena, nausea and vomiting. Genitourinary: Negative for decreased libido and hematuria. Neurological: Negative for loss of balance and numbness. Psychiatric/Behavioral: Negative for memory loss. The patient is nervous/anxious. Objective: Physical Exam Constitutional: He is oriented to person, place, and time. He appears well- developed and well-nourished. Obese HENT: Head: Normocephalic. Mouth/Throat: Oropharynx is clear and moist. Eyes: Conjunctivae and lids are normal. Neck: No JVD present. Carotid bruit is not present. Cardiovascular: Normal rate, regular rhythm, normal heart sounds and normal pulses. Exam reveals nogallop and no friction rub. No murmur heard. Pulmonary/Chest: Effort normal and breath sounds normal. Abdominal: Soft. Bowel sounds are normal. He exhibits no mass. There is no hepatosplenomegaly. There is no tenderness. Musculoskeletal: Normal range of motion. He exhibits edema. Trace lower left leg Neurological: He is alert and oriented to person, place, and time. Gait normal. Skin: Skin is warm and intact. No rash noted. Psychiatric: He has a normal mood and affect. His behavior is normal. Vitals reviewed. Vitals: Vitals: 02/10/19 0805 BP: 138/81 BP Location: Left arm Patient Position: Sitting Pulse: 66 SpO2: 94% Weight: 110.1 kg (242 lb 11.2 oz) Height: 5' 8 Follow Up Ordered: Return in about 6 months (around 08/12/2019) for With Dr. Meredith. Rosalina Woodward CNP * Elaine Chavarria MA - 02/10/2019 8:02 AM EDT Review of Systems Constitution: Negative for diaphoresis, malaise/fatigue, weight gain and weight loss. HENT: Negative for hearing loss, nosebleeds and tinnitus. Eyes: Positive for blurred vision. Negative for visual disturbance. Cardiovascular: Positive for leg swelling. Negative for chest pain, claudication, cyanosis, dyspneaon exertion, irregular heartbeat, near-syncope, orthopnea, palpitations, paroxysmal nocturnal dyspnea and syncope. Sleeps on elevated pillow Respiratory: Positive for snoring. Negative for hemoptysis and shortness of breath. Endocrine: Negative for cold intolerance and heat intolerance. Hematologic/Lymphatic: Does not bruise/bleed easily. Skin: Negative for flushing, poor wound healing and rash. Musculoskeletal: Negative for back pain, muscle weakness and myalgias. Gastrointestinal: Negative for abdominal pain, change in bowel habit, melena, nausea and vomiting. Genitourinary: Negative for decreased libido and hematuria. Neurological: Negative for loss of balance and numbness. Psychiatric/Behavioral: Negative for memory loss. The patient is nervous/anxious. in this encounter* Aris Meredith MD - 05/12/2019 12:04 PM EDT I saw Jewel Chaves in follow up in the office on 05/12/19. Jewel has done quite well over the pastyear from a cardiac standpoint. Although he is not exercising on a regular basis he does remain fairly active and functional with no exertional chest pain, exertional dyspnea or syncope. His major complaint is of nonspecific fatigue which is likely related to his obesity and profound deconditioning. He remains compliant with his medicines and a review of his home blood pressures demonstrated excellent control. Review of Systems: Documented in Medical Record Physical Exam Vital Signs: Blood Pressure 143/63 (BP Location: Left arm, Patient Position: Sitting) Pulse 64 Height 5' 8 Weight 107.2 kg (236 lb 6.4 oz) Oxygen Saturation 93% Body Mass Index 35.94 kg/m General: No acute distress, alert, and oriented x3. Skin: Normal turgor, well-hydrated, HEENT: Normocephalic,EOMI Neck: Supple, no bruits Cardiovascular: Regular rate and rhythm. No murmurs gallops or rubs. No JVD. No peripheral edema noted. Respiratory: Clear to auscultation and percussion, no rales, rhonchi or wheezes Abdominal: Soft, nontender, nondistended, without masses or bruits. Extremities : No clubbing or cyanosis. Pulses intact. Neurological: Cranial nerves grossly intact. No focal neurological deficits noted. Psych: Normal mood and affect Allergy Information: I have reviewed the patient's allergies. Metformin Home Medications: Outpatient Medications as of 05/12/2019 Medication Sig amLODIPine-benazepril (LOTREL) 10-20 mg per capsule Take 1 capsule by mouth daily In the morning . aspirin 81 MG EC tablet Chew 81 mg daily. atorvastatin (LIPITOR) 20 MG tablet Take 20 mg by mouth daily . cholecalciferol, vitamin D3, (VITAMIN D3 ORAL) Take 1 tablet by mouth daily . cholestyramine-aspartame (cholestyramine light) 4 gram PwPk Take by mouth . cyanocobalamin, vitamin B-12, (VITAMIN B12 ORAL) Take 1 tablet by mouth daily . ELIQUIS 5 mg Tab Take 5 mg by mouth 2 (two) times a day . furosemide (LASIX) 40 MG tablet Take 40 mg by mouth daily . glimepiride (AMARYL) 1 MG tablet Take 1 mg by mouth every morning before breakfast. metoprolol succinate (TOPROL XL) 100 MG 24 hr tablet Take 1 (one) tablet (100 mg total) by mouth daily . (Patient taking differently: Take 100 mg by mouth nightly .) primidone (MYSOLINE) 50 MG tablet Take 50 mg by mouth 2 (two) times a day . PV W-O DANITZA/FERROUS FUMARATE/FA (M-VIT ORAL) Take by mouth daily. ranitidine (ZANTAC) 150 MG tablet Take 150 mg by mouth 2 (two) times a day . Assessment/Plan: CAD (coronary artery disease) This pleasant gentleman continues doing very well now 10 years out from his single-vessel drug-eluting stent implantation. He remains very functional, very compliant and asymptomatic. I made no changes in his medicines today. Hyperlipidemia He remains on high potency statin therapy with reportedly adequate lipid levels. No changes were made in his regimen. Hypertension His blood pressure was mildly elevated today however did improve on repeat determination and has been extremely well controlled at home. I recommend he continue to follow his home blood pressure but made no changes in his regimen today. * Elaine Chavarria MA - 05/12/2019 11:21 AM EDT Review of Systems Constitution: Positive for malaise/fatigue. Negative for diaphoresis, weight gain and weight loss. HENT: Negative for hearing loss, nosebleeds and tinnitus. Eyes: Negative for blurred vision and visual disturbance. Cardiovascular: Positive for leg swelling. Negative for chest pain, claudication, cyanosis, dyspneaon exertion, irregular heartbeat, near-syncope, orthopnea, palpitations, paroxysmal nocturnal dyspnea and syncope. Sleeps on elevated pillow Respiratory: Positive for snoring. Negative for hemoptysis and shortness of breath. Endocrine: Positive for heat intolerance. Negative for cold intolerance. Hematologic/Lymphatic: Does not bruise/bleed easily. Skin: Negative for flushing, poor wound healing and rash. Musculoskeletal: Negative for back pain, muscle weakness and myalgias. Gastrointestinal: Negative for abdominal pain, change in bowel habit, melena, nausea and vomiting. Genitourinary: Negative for decreased libido and hematuria. Neurological: Negative for loss of balance and numbness. Psychiatric/Behavioral: Negative for memory loss. The patient is nervous/anxious. documented in this encounter* Aris Meredith MD - 05/31/2020 9:51 AM EDT I saw Jewel Chaves in follow up in the office on 05/31/20. Jewel has done reasonably well since I saw him last year. Over the past several months however he has noticed increased fatigue and decreased exercise tolerance. He has had no true anginal chest discomfort but does note a difference in hisfunctional status compared to last year. He remains extremely compliant with his medications and his home blood pressures have been under good control. Review of Systems: Documented in Medical Record Physical Exam Vital Signs: Blood Pressure 142/80 Weight 104.3 kg (230 lb) Body Mass Index 34.97 kg/m General: No acute distress, alert, and oriented x3. Skin: Normal turgor, well-hydrated, HEENT: Normocephalic,EOMI Neck: Supple, no bruits Cardiovascular: Regular rate and rhythm. No murmurs gallops or rubs. No JVD noted. No peripheral edema noted. Respiratory: Clear to auscultation and percussion, no rales, rhonchi or wheezes Abdominal: Soft, nontender, nondistended, without masses or bruits. Extremities : No clubbing or cyanosis. Pulses intact Neurological: Cranial nerves grossly intact. No focal neurological deficits noted. Psych: Normal mood and affect Allergy Information: I have reviewed the patient's allergies. Metformin Home Medications: Outpatient Medications as of 05/31/2020 Medication Sig amLODIPine-benazepril (LOTREL) 10-20 mg per capsule Take 1 capsule by mouth daily In the morning . aspirin 81 MG EC tablet Chew 81 mg daily. atorvastatin (LIPITOR) 20 MG tablet Take 20 mg by mouth daily . cholecalciferol, vitamin D3, (VITAMIN D3 ORAL) Take 1 tablet by mouth daily . cholestyramine-aspartame (cholestyramine light) 4 gram PwPk Take by mouth . cyanocobalamin, vitamin B-12, (VITAMIN B12 ORAL) Take 1 tablet by mouth daily . ELIQUIS 5 mg Tab Take 5 mg by mouth 2 (two) times a day . furosemide (LASIX) 40 MG tablet Take 40 mg by mouth daily . glimepiride (AMARYL) 1 MG tablet Take 1 mg by mouth every morning before breakfast. metoprolol succinate (TOPROL XL) 100 MG 24 hr tablet Take 1 (one) tablet (100 mg total) by mouth daily . (Patient taking differently: Take 100 mg by mouth nightly .) primidone (MYSOLINE) 50 MG tablet Take 50 mg by mouth 2 (two) times a day . PV W-O DANITZA/FERROUS FUMARATE/FA (M-VIT ORAL) Take by mouth daily. ranitidine (ZANTAC) 150 MG tablet Take 150 mg by mouth 2 (two) times a day . EKG: Normal sinus rhythm with poor R wave progression and nonspecific T wave changes. Assessment/Plan: CAD (coronary artery disease) Symptomatically Jewel appears reasonably stable now 11 years status post multivessel percutaneous coronary intervention. His recent symptoms are somewhat concerning given the time since his intervention but may simply be related to his age, weight and deconditioning. To be certain however I did arrange for a Lexiscan Cardiolite stress test to be done to rule out an ischemic etiology. I made no changes in his medicines at this time. Hypertension His blood pressure was mildly elevated in the office today however is checked frequently at home where it is reportedly under good control. I made no changes today. Hyperlipidemia He remains on moderate dose, high potency statin therapy with adequate lipid levels. No changes were made today. * Soraya Chadwick CMA - 05/31/2020 9:10 AM EDT Review of Systems Constitution: Positive for malaise/fatigue. Negative for diaphoresis, weight gain and weight loss. HENT: Negative for hearing loss, nosebleeds and tinnitus. Eyes: Negative for blurred vision and visual disturbance. Cardiovascular: Negative for chest pain, claudication, cyanosis, dyspnea on exertion, irregular heartbeat, leg swelling, near-syncope, orthopnea, palpitations, paroxysmal nocturnal dyspnea and syncope. Respiratory: Negative for hemoptysis, shortness of breath and snoring. Endocrine: Negative for cold intolerance and heat intolerance. Hematologic/Lymphatic: Does not bruise/bleed easily. Skin: Negative for flushing, poor wound healing and rash. Musculoskeletal: Negative for back pain, muscle weakness and myalgias. Gastrointestinal: Negative for abdominal pain, change in bowel habit, melena, nausea and vomiting. Genitourinary: Negative for decreased libido and hematuria. Neurological: Negative for loss of balance and numbness. Psychiatric/Behavioral: Negative for memory loss. The patient is not nervous/anxious. documented in this encounter* Aris Meredith MD - 06/10/2020 3:08 PM EDT Erroneous Encounter documented in this encounter Advance Directives No Advanced Directives Records FoundDocuments on File Type Date Recorded Patient Apron Cleaner Expl anation Living Will 01/11/2020 Date Activated Date Inactivated Comments 01/30/2025 9:28 PM Question Answer Comments Plan of Care: Code Status Discussion Completed Decision Maker: Patient Documents on File Type Date Recorded Patient Apron Cleaner Expl anation Advance Directives and Livin g Will 11/16/2018 12:00 AM Documents on File Type Date Recorded Patient Apron Cleaner Expl anation Advance Directives and Livin g Will 11/16/2018 12:00 AM Documents on File Type Date Recorded Patient Apron Cleaner Expl anation Advance Directives and Living Will 11/16/2018 Advance Directive Response Recorded Date/ Time Name of Medical Power of Analytical Research Chemist Nano READ TOVA KRISHNA April 06, 2023 5:51am Living Will Yes April 06, 2023 5 :51am Power of Analytical Research Chemist Yes April 06, 2023 5:51am Advance Directive Response Recorded Date/ Time Name of Medical Power of Analytical Research Chemist Raisa springApril 06, 2023 8:40am Living Will Yes April 06, 2023 8 :40am Power of Analytical Research Chemist Yes April 06, 2023 8:40am Advance Directive Response Recorded Date/ Time Name of Medical Power of Analytical Research Chemist Raisa springApril 06, 2023 8:40am Living Will Yes April 20, 2023 12:49pm Power of Analytical Research Chemist No April 20 12:49pm Documents on File Type Date Recorded Patient Apron Cleaner Expl anation Living Will 01/11/2020 Advance Directive Response Recorded Date/ Time Living Will Yes April 20, 2023 11:49am Power of Analytical Research Chemist No April 20 11:49am Advance Directive Response Recorded Date/ Time Living Will Yes April 20, 2023 12:49pm Power of Analytical Research Chemist No April 20 12:49pm Date Activated Date Inactivated Comments 01/30/2025 9:28 PM Question Answer Comments Plan of Care: Code Status Discussion Completed Decision Maker: Patient Summary Purpose Family History No Family History Records Found Mother Name Dates Details Family history of Primary ma lignant neoplasm of colon(153.9, C18.9) Status:Active Mother Name Dates Details Family history of Primary ma lignant neoplasm of colon(153.9, C18.9) Status:Active Mother Name Dates Details Family history of Primary ma lignant neoplasm of colon(153.9, C18.9) Status:Active Mother Name Dates Details Family history of Primary ma lignant neoplasm of colon(153.9, C18.9) Status:Active Mother Name Dates Details Family history of Primary ma lignant neoplasm of colon(153.9, C18.9) Status:Active Mother Name Dates Details Family history of Primary ma lignant neoplasm of colon(153.9, C18.9) Status:Active Mother Name Dates Details Family history of Primary ma lignant neoplasm of colon(153.9, C18.9) Status:Active Mother Name Dates Details Family history of Primary ma lignant neoplasm of colon(153.9, C18.9) Status:Active Mother Name Dates Details Family history of Primary ma lignant neoplasm of colon(153.9, C18.9) Status:Active Mother Name Dates Details Family history of Primary ma lignant neoplasm of colon(153.9, C18.9) Status:Active Mother Name Dates Details Family history of Primary ma lignant neoplasm of colon(153.9, C18.9) Status:Active Mother Name Dates Details Family history of Primary ma lignant neoplasm of colon(153.9, C18.9) Status:Active Mother Name Dates Details Family history of Primary ma lignant neoplasm of colon(153.9, C18.9) Status:Active Mother Name Dates Details Family history of Primary ma lignant neoplasm of colon(153.9, C18.9) Status:Active Mother Name Dates Details Family history of Primary ma lignant neoplasm of colon(153.9, C18.9) Status:Active Mother Name Dates Details Family history of Primary ma lignant neoplasm of colon(153.9, C18.9) Status:Active Mother Name Dates Details Family history of Primary ma lignant neoplasm of colon(153.9, C18.9) Status:Active Unknown Family Member Name Dates Details Primary malignant neoplasm o f colon: Mother Status:Active Unknown Family Member Name Dates Details Primary malignant neoplasm o f colon: Mother Status:Active Unknown Family Member Name Dates Details Primary malignant neoplasm o f colon: Mother Status:Active Unknown Family Member Name Dates Details Primary malignant neoplasm o f colon: Mother Status:Active Unknown Family Member Name Dates Details Primary malignant neoplasm o f colon: Mother Status:Active Unknown Family Member Name Dates Details Primary malignant neoplasm o f colon: Mother Status:Active Unknown Family Member Name Dates Details Primary malignant neoplasm o f colon: Mother Status:Active Unknown Family Member Name Dates Details Primary malignant neoplasm o f colon: Mother Status:Active Unknown Family Member Name Dates Details Primary malignant neoplasm o f colon: Mother Status:Active Unknown Family Member Name Dates Details Primary malignant neoplasm o f colon: Mother Status:Active Unknown Family Member Name Dates Details Primary malignant neoplasm o f colon: Mother Status:Active Unknown Family Member Name Dates Details Primary malignant neoplasm o f colon: Mother Status:Active Unknown Family Member Name Dates Details Primary malignant neoplasm o f colon: Mother Status:Active Unknown Family Member Name Dates Details Primary malignant neoplasm o f colon: Mother Status:Active Unknown Family Member Name Dates Details Primary malignant neoplasm o f colon: Mother Status:Active Unknown Family Member Name Dates Details Primary malignant neoplasm o f colon: Mother Status:Active Unknown Family Member Name Dates Details Primary malignant neoplasm o f colon: Mother Status:Active Unknown Family Member Name Dates Details Primary malignant neoplasm o f colon: Mother Status:Active Unknown Family Member Name Dates Details Primary malignant neoplasm o f colon: Mother Status:Active Unknown Family Member Name Dates Details Primary malignant neoplasm o f colon: Mother Status:Active Unknown Family Member Name Dates Details Primary malignant neoplasm o f colon: Mother Status:Active Unknown Family Member Name Dates Details Primary malignant neoplasm o f colon: Mother Status:Active Unknown Family Member Name Dates Details Primary malignant neoplasm o f colon: Mother Status:Active Unknown Family Member Name Dates Details Primary malignant neoplasm o f colon: Mother Status:Active Unknown Family Member Name Dates Details Primary malignant neoplasm o f colon: Mother Status:Active Unknown Family Member Name Dates Details Primary malignant neoplasm o f colon: Mother Status:Active Unknown Family Member Name Dates Details Primary malignant neoplasm o f colon: Mother Status:Active Unknown Family Member Name Dates Details Primary malignant neoplasm o f colon: Mother Status:Active Unknown Family Member Name Dates Details Primary malignant neoplasm o f colon: Mother Status:Active Unknown Family Member Name Dates Details Primary malignant neoplasm o f colon: Mother Status:Active Unknown Family Member Name Dates Details Primary malignant neoplasm o f colon: Mother Status:Active Unknown Family Member Name Dates Details Primary malignant neoplasm o f colon: Mother Status:Active Unknown Family Member Name Dates Details Primary malignant neoplasm o f colon: Mother Status:Active Unknown Family Member Name Dates Details Primary malignant neoplasm o f colon: Mother Status:Active Unknown Family Member Name Dates Details Primary malignant neoplasm o f colon: Mother Status:Active Unknown Family Member Name Dates Details Primary malignant neoplasm o f colon: Mother Status:Active Unknown Family Member Name Dates Details Primary malignant neoplasm o f colon: Mother Status:Active Unknown Family Member Name Dates Details Primary malignant neoplasm o f colon: Mother Status:Active Unknown Family Member Name Dates Details Primary malignant neoplasm o f colon: Mother Status:Active Unknown Family Member Name Dates Details Primary malignant neoplasm o f colon: Mother Status:Active Unknown Family Member Name Dates Details Primary malignant neoplasm o f colon: Mother Status:Active Unknown Family Member Name Dates Details Primary malignant neoplasm o f colon: Mother Status:Active Unknown Family Member Name Dates Details Primary malignant neoplasm o f colon: Mother Status:Active Unknown Family Member Name Dates Details Primary malignant neoplasm o f colon: Mother Status:Active Unknown Family Member Name Dates Details Primary malignant neoplasm o f colon: Mother Status:Active Unknown Family Member Name Dates Details Primary malignant neoplasm o f colon: Mother Status:Active Unknown Family Member Name Dates Details Primary malignant neoplasm o f colon: Mother Status:Active Unknown Family Member Name Dates Details Primary malignant neoplasm o f colon: Mother Status:Active Unknown Family Member Name Dates Details Primary malignant neoplasm o f colon: Mother Status:Active Unknown Family Member Name Dates Details Primary malignant neoplasm o f colon: Mother Status:Active Chief Complaint Pt presents to this office for 7 month f/u lab results. Pt concern for tingling of fingers.Pt presents to this office for 7 month f/u lab results. Pt concern for tingling of fingers.Pt presents for routine 3 mo check up; lab and med review; med refills; fingers still the same; increased fatigue.Pt presents for routine 3 mo check up; lab and med review; med refills; fingers still the same; increased fatigue.Pt presents for routine 3 mo check up; lab and med review; med refills; fingers still the same; increased fatigue.6 month f/u w/ psaPt presents for Medicare Wellness Exam; med review and refills.Pt presents for Medicare Wellness Exam; med review and refills.6 month follow up with PSA* 1 MO FUV- HTN AND STAGE 3 CKD * LABS 12/27 Pt presents for routine 6 mo check up; lab and med review; med refills; c/o fluid filled sac under left eye, possibly from CPAP.Pt presents for routine 6 mo check up; lab and med review; med refills; c/o fluid filled sac under left eye, possibly from CPAP.8 mo w /psa8 mo w /psaPt presents with c/o CPAP face mask straps rubbing against left eye; need a replacement; CPAP supplies come from [facility]; c/o increased fatigue.* 3 month follow-up- CKD, HTN, Edema * Lab review 06/27/2022 6 mo f/u, b/l hand tremors with finger numbness, red spots around neck with itching.NPV in office today from [facility] admission had EGD during stay. Patient was placed on Iron at the hospital and omeprazole.YEARLY F/U W/ PSA Medications Administered Section Inactive Administered Medications - up to 3 most recent administrations Medication Order MAR Action Action Date Dose Rate Site PHENYLephrine 2.5 % 1 Drop (AK-DILATE, JOVANI-SYNEPHRINE) 1 Drop, BOTH EYES, DIRECTED, Starting on Thu03/09/23 at 1430, Until Thu03/10/23 at 0229, Administer for dilation PROTECT FROM LIGHT Given 03/09/2023 2:30 PM EDT 1 Drop proparacaine 0.5 % 1 Drop (ALCAINE) 1 Drop, BOTH EYES, DIRECTED, Starting on Thu03/09/23 at 1430, Until Thu03/10/23 at 022, Administer for pneumo tonometry, tonopen tonometry, or pachymetry. In the event of a proparacaine shortage, administer tetracaine 0.5% ophthalmic drops 1 drop in the left eye as directed for pneumo tonometry, tonopen tonometry, or pachymetry Given 03/09/2023 2:30 PM EDT 1 Drop tropicamide 1 % 1 Drop (MYDRIACYL) 1 Drop, BOTH EYES, DIRECTED, Starting on Thu03/09/23 at 1430, Until Thu03/10/23 at 0229, Administer for dilation Given 03/09/2023 2:30 PM EDT 1 Drop Chief Complaint and Reason for Visit Chief Complaint GI BLEED, ANEMIA DUE TO GIB GI BLEED, ANEMIA DUE TO GIB Reason for Visit Acute GI bleeding Anemia due to acute blood loss Anticoagulant long-term use Hypercholesterolemia Presence of stent in coronary artery in patient with coronary artery disease 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 Chief Complaint GI BLEED, ANEMIA DUE TO GIB GI BLEED, ANEMIA DUE TO GIB GI BLEED, ANEMIA DUE TO GIB GI BLEED, ANEMIA DUE TO GIB GI BLEED, ANEMIA DUE TO GIB GI BLEED, ANEMIA DUE TO GIB Reason for Visit Acute GI bleeding Anemia due to acute blood loss Anticoagulant long-term use Cirrhosis Hypercholesterolemia Presence of stent in coronary artery in patient with coronary artery disease 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 Chief Complaint GI BLEED, ANEMIA DUE TO GIB GI BLEED, ANEMIA DUE TO GIB GI BLEED, ANEMIA DUE TO GIB GI BLEED, ANEMIA DUE TO GIB GI BLEED, ANEMIA DUE TO GIB GI BLEED, ANEMIA DUE TO GIB GI BLEED, ANEMIA DUE TO GIB GI BLEED, ANEMIA DUE TO GIB gi bleed Reason for Visit Cirrhosis Diabetes Gastric ulcer 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 Acute GI bleeding Anemia due to acute blood loss Chief Complaint GI BLEED, ANEMIA DUE TO GIB GI BLEED, ANEMIA DUE TO GIB GI BLEED, ANEMIA DUE TO GIB GI BLEED, ANEMIA DUE TO GIB GI BLEED, ANEMIA DUE TO GIB GI BLEED, ANEMIA DUE TO GIB GI BLEED, ANEMIA DUE TO GIB GI BLEED, ANEMIA DUE TO GIB gi bleed INT LABS Reason for Visit Cirrhosis Diabetes Gastric ulcer 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 Acute GI bleeding Anemia due to acute blood loss Chief Complaint First Visit 60 CIRRHOSIS Reason for Visit Cirrhosis Diabetes Gastric ulcer Stage 4 chronic kidney disease Chief Complaint First Visit 60 CIRRHOSIS E ORDERS Reason for Visit Cirrhosis Diabetes Gastric ulcer Stage 4 chronic kidney disease Chief Complaint CIRRHOSIS E ORDERS 3 MO FU CAD ASHD Reason for Visit Cirrhosis Diabetes Gastric ulcer Chief Complaint Admit Date 6 M FU December 15, 2024 8:58am 3 M FU March 28, 2025 10:43 am Reason for Visit Admit Date Anemia in chronic illness December 15, 2024 8:58am Cirrhosis December 15, 2024 8:58am Gastric ulcer December 15, 2024 8:58am Stage 4 chronic kidney disease December 15, 2024 8:58am Anemia in chronic illness March 28, 2025 10:43am Cirrhosis March 28, 2025 10:43 am Gastric ulcer March 28, 2025 10:43 am Additional Source Comments Reason for Visit (unrecogniz ed section and content) Reason Comments Follow-up pt states he was at [facility] for blood clots, pt states they did start him on Eliquis. States doing well since hospitalization Status Reason Specialty Diagnoses / Procedures Re ferred By Contact Referred To Contact Pending Review Cardiology Diagnoses Essential hypertension 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 Mixed hyperlipidemia Procedures Echocardiogram complete Aris Meredith MD [address] [place] [address] Reason Comments Follow-up f/u per Viri. med ication change. pt has blood pressure recordings with him since last OV Reason Comments Follow-up 6 mo f/u. Fatigue -has not increased s ernestina last OV. Status Reason Specialty Diagnoses / Procedures Re ferred By Contact Referred To Contact Closed Radiology Diagnoses 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 Essential hypertension Mixed hyperlipidemia Procedures NM Myocardial Perfusion Multiple SPECT Aris Meredith MD [address] [place] [address] Reason Comments Annual Exam Reason Comments Nail Care diabetic Reason Comments Nail Care Diabetic Reason Comments Nail Care Diabetic nail care. Blood sugar was 215 today. DLS by Jae Gannon was last month. Reason Comments Blurred Vision Both Eyes Reason Comments Follow-up Previous Viri/ [facility] st Reason Comments Nail Care Diabetic nail care. Blood sugar was 200 a couple days ago. He will be transferring care to Dr العراقي August 13. Reason Comments Nail Care Diabetic nail care. Pt states sugar level 199 this morning. Pt doesn't remember last a1c. Reason Onset Date Comments Medication Refill 02/11/2023 Reason Comments Watery Eyes Both Eyes Left eye worse mc n right eye Diabetes Lamellar hole Left eye Specialty Diagnoses / Procedures Referred By Contpierre t Referred To Contact Neurology Diagnoses Carpal tunnel syndrome, bilateral Procedures EMG: Mariah Can MD [address] [facility] [address] [place] [address] [facility] [address] [facility] Medical Office Building, [address]nd [place] [address] Referral ID Status Reason Start Date Expiration Date V isits Requested Visits Authorized [id number] Pending Review 04/29/2023 04/28/2024 1 1 Reason Comments Follow-up 6 MONTH FUV- LAB REV IEW 07/30/2023 Reason Comments Anemia Reason Comments Nail Care Diabetic nail care. Blood sugar was 222 today. Foot Pain Patient states his m edial right heel has been sore for the past week. Denies trauma. When taking off sock today area is red with a blister like ulce. Patient had not noticed this. Reason Comments Wound Check Three week follow up right heel wound. Blood sugar was 250 this morning after breakfast. Reason Comments Nail Care Patient presents for diabetic nail care, wound check. 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) Leukopenia, unspecified type Procedures CT chest abdomen pelvis wo IV contrast CT chest wo IV contrast Elaine Betts S, BUSINESS ANALYTICS ANALYST-PRECISION THREAD GRINDER OPERATOR [address] [place] [id number] Referral ID Status Reason Start Date Expiration Date Visits Requested Visits Authorized [id number] Authorized Perform Procedure 01/12/2024 01/11/2025 1 1 Reason Comments Follow-up 6 month ckReview lab s 01/21 Specialty Diagnoses / Procedures Referred By Contac t Referred To Contact Radiology Diagnoses Pulmonary fibrosis (CMS/HCC) Procedures CT chest high resolution Antione Harp DO [address] [place] [id number] Referral ID Status Reason Start Date Expiration Date Visits Requested Visits Authorized [id number] Pending Review Perform Procedure 01/28/2024 01/27/2025 1 1 Specialty Diagnoses / Procedures Referred By Contac t Referred To Contact Diagnoses Pulmonary fibrosis (CMS/HCC) Procedures Pulmonary Stress Test (6 Min. Walk) Antione Harp DO [address] [place] [id number] Referral ID Status Reason Start Date Expiration Date V isits Requested Visits Authorized [id number] Pending Review 01/28/2024 01/27/2025 1 1 Specialty Diagnoses / Procedures Referred By Contac t Referred To Contact Diagnoses Pulmonary fibrosis (CMS/HCC) Procedures Complete Pulmonary Function Test Pre/Post Bronchodialator (Spirometry Pre/Post/DLCO/Lung Volumes) Antione Harp DO [address] [place] [address] Referral ID Status Reason Start Date Expiration Date V isits Requested Visits Authorized [id number] Pending Review 01/28/2024 01/27/2025 1 1 Specialty Diagnoses / Procedures Referred By Contac t Referred To Contact Radiology Diagnoses 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) Leukopenia, unspecified type Myelodysplastic syndrome, 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Multi) Procedures IR biopsy bone marrow CT bone marrow biopsy and aspirations only Elaine Betts S, BUSINESS ANALYTICS ANALYST-PRECISION THREAD GRINDER OPERATOR [address] [place] [address] Referral ID Status Reason Start Date Expiration Date Visits Requested Visits Authorized [id number] Pending Review Perform Procedure 01/12/2024 01/11/2025 1 1 Reason Comments Follow-up SOBOE, leg swelling, lightheaded/dizzy Reason Comments Diabetes Tearing Left Eye Dry Eye(s) Both Eyes Excessive tearing Both eyes Reason Comments Nail Care Diabetic nail care. Last A1C 10.4 Reason Comments Myelodyplasia Reason Comments Follow-up 6 month ckReview lab s Reason Comments Follow-up Lab/ ov/ inj Reason Comments Nail Care Patient is here diab etic for nail care. DLS by primary care was 05/20/2024. Last A1C wasw 8.8. Right foot swelling has gotten better. Left has come down some. Has shingles 2-4 months ago on lower left leg. Reason Comments Follow-up 6 month follow up Specialty Diagnoses / Procedures Referred By Contac t Referred To Contact Primary Care Procedures Follow Up In Primary Care - Established Palmira العراقي MD Phone: tel: fax: Referral ID Status Reason Start Date Expiration Date V isits Requested Visits Authorized [id number] Authorized 03/31/2024 03/31/2025 1 1 Specialty Diagnoses / Procedures Referred By Contac t Referred To Contact Radiology Diagnoses Interstitial lung disease (Multi) Procedures CT chest wo IV contrast Antione Harp, [address] [place] [address] Referral ID Status Reason Start Date Expiration Date Visits Requested Visits Authorized [id number] Authorized Perform Procedure 03/25/2024 03/25/2025 1 1 Reason Comments Rash Reason Comments Follow-up ER follow up from [facility]- Left lower leg swollen/red. Notes from [facility] faxed to our office for review. Reason Comments Follow-up 3 month ckReview lab s Reason Comments Follow-up Carpal Tunnel Syndro me. He has his with him today. He states he is now feeling it in the right hand in his thumbs. Reason Comments Nail Care diabetic nail care/A 1C 10 on 09/26/24. Feet were aching this morning. Reason Comments Follow-up 3 month follow up Specialty Diagnoses / Procedures Referred By Gucci gonzalez Referred To Contact Primary Care Procedures Follow Up In Primary Care - Established Palmira العراقي MD [address] [place] [address] Phone: tel: fax: Referral ID Status Reason Start Date Expiration Date V isits Requested Visits Authorized [id number] Authorized 10/03/2024 10/03/2025 1 1 Reason Comments Anemia Stage 4 chronic kidn ey disease Reason Comments Weakness, Gen Patient sent over fr om the infusion clinic. Patient has history of MDS, was there receiving his injection. He complains of weakness, shortness of breath, and dark stools since Thursday. States he fell on Thursday. Specialty Diagnoses / Procedures Referred By Gucci gonzalez Referred To Contact Diagnoses Swelling of both lower extremities Acute kidney injury superimposed on chronic kidney disease Anemia, unspecified type Procedures Elaine Holman MD [address] [place] [address] Phone: tel: fax: [facility] [address] [place] [phone] Phone: tel: Referral ID Status Reason Start Date Expiration Date Visits Re quested Visits Authorized [id number] 1 1 Reason Comments Follow-up Reason Comments Follow-up Recently discharged home from [facility] Reason Comments Follow-up Reason Comments Nail Care DIABETIC A1c 8.0 (unrecognized sect ion and content) No Status Records FoundNo Status Records FoundNo Status Records FoundNo Status Records FoundNo Status Records FoundNo Status Records FoundNo Status Records FoundNo Status Records FoundNo Status Records FoundNo Status Records FoundNo Status Records FoundNo Status Records FoundNo Status Records FoundNo Status Records FoundNo Status Records FoundNo Status Records Found INFORMATION SOURCE (unrecogn ized section and content) DATE CREATED AUTHOR 11/22/2018 [facility] DATE CREATED AUTHOR AUTHOR'S ORGANIZ ATION 07/07/2019 [facility] DATE CREATED AUTHOR AUTHOR'S ORGANIZ ATION 06/08/2020 [facility] DATE CREATED AUTHOR AUTHOR'S ORGANIZ ATION 06/18/2020 [facility] DATE CREATED AUTHOR AUTHOR'S ORGANIZ ATION 11/10/2022 [facility] DATE CREATED AUTHOR AUTHOR'S ORGANIZ ATION 06/26/2023 [facility] DATE CREATED AUTHOR AUTHOR'S ORGANIZ ATION 07/17/2023 [facility] DATE CREATED AUTHOR AUTHOR'S ORGANIZ ATION 02/21/2024 [facility] DATE CREATED AUTHOR AUTHOR'S ORGANIZ ATION 03/17/2024 [facility] DATE CREATED AUTHOR AUTHOR'S ORGANIZ ATION 02/01/2025 [facility] DATE CREATED AUTHOR AUTHOR'S ORGANIZ ATION 02/09/2025 [facility] DATE CREATED AUTHOR AUTHOR'S ORGANIZ ATION 03/31/2025 [facility] DATE CREATED AUTHOR AUTHOR'S ORGANIZ ATION 04/02/2025 [facility] DATE CREATED AUTHOR AUTHOR'S ORGANIZ ATION 04/02/2025 [facility] DATE CREATED AUTHOR AUTHOR'S ORGANIZ ATION 04/03/2025 [facility] DATE CREATED AUTHOR AUTHOR'S ORGANIZ ATION 04/08/2025 [facility] Ambulatory Assessment & Plan Note - Rosalina Woodward CNP - 02/10/2019 8:50 AM EDTAssessment & Plan Note - Rosalina Woodward CNP - 02/10/2019 8:37 AM EDT Miscellaneous Notes (unrecog nized section and content) Associated Problem(s): Type 2 diabetes mellitus (HCC) Currently taking Amaryl 1 mg daily. Not taking metformin due to intolerance. Denies hypoglycemia. States fasting BG's at home generally 180-200's mg/dl and pre- dinner 160's mg/dl. We discussed goal BG's. Current A1C not available. Jewel would be a candidate for SGLT2 or GLP1. He would like to discuss with Dr. Martin or Jae Gannon CNP. I did review S/S hypoglycemia with Jewel and asked him to get several packs of glucose tablets to have for his vehicle and at home. We discussed how to treat hypoglycemia as well. 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 He walks about 15 to his brother's house when the weather permits. He has noticed he gets mildly YUAN with exertion. He is wearing his CPAP nightly, has chronic 2 pillow orthopnea. He denies palpitations, lightheadedness, syncope or near-syncopal episodes. 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 We discussed monitoring his activity tolerance. If it declines so that he ethier quits performing activities to prevent symptoms, or notices a change or increase in symptoms, he verbalized understanding to seek medical attention. ECHO 11/2018: LVEF Normal, RVEF mildly depressed, mild AR, moderate pulmonary hypertension. Medications include: statin, BB, ASA, Eliquis (hv DVT/PE) Associated Problem(s): Hypertension B/P essentially at goal, 138/81. Home B/P readings generally in the 120's/60's. Jewel saw Dr. Martin on Thursday and he was pleased with his blood pressure. Dr. Martin made medication adjustments. Lisinopril was DC'd. Dr. Martin will continue to follow labs. Current medications: Lotrel 10-20 mg, Lasix 40 mg, Toprol-XL 100 mg in this encounter Associated Problem(s): Hypertension His blood pressure was mildly elevated today however did improve on repeat determination and has been extremely well controlled at home. I recommend he continue to follow his home blood pressure but made no changes in his regimen today. Associated Problem(s): Hyperlipidemia He remains on high potency statin therapy with reportedly adequate lipid levels. No changes were made in his regimen. Associated Problem(s): CAD (coronary artery disease) This pleasant gentleman continues doing very well now 10 years out from his single-vessel drug-eluting stent implantation. He remains very functional, very compliant and asymptomatic. I made no changes in his medicines today. documented in this encounter Associated Problem(s): Hyperlipidemia He remains on moderate dose, high potency statin therapy with adequate lipid levels. No changes were made today. Associated Problem(s): Hypertension His blood pressure was mildly elevated in the office today however is checked frequently at home where it is reportedly under good control. I made no changes today. Associated Problem(s): CAD (coronary artery disease) Symptomatically Jewel appears reasonably stable now 11 years status post multivessel percutaneous coronary intervention. His recent symptoms are somewhat concerning given the time since his intervention but may simply be related to his age, weight and deconditioning. To be certain however I did arrange for a Lexiscan Cardiolite stress test to be done to rule out an ischemic etiology. I made no changes in his medicines at this time. documented in this encounter Yisel Bills RN - 06/12/2020 9:30 AM EDT Nursing Notes (unrecognized section and content) Resting ECG sinus rhythm. Tolerated lexiscan well, denies CP with medication. documented in this encounter Care Teams (unrecognized sec tion and content) Team Status: Active Member Role Status Dates Dr. Palmira العراقي MD Primary Care Provider Act ti Team Status: Inactive Member Role Status Dates Dr. Palmira العراقي MD Primary Care Provider, Re ferring Provider Active Dr. Grey Nava MD Attending Provider Active Team Status: Inactive Member Role Status Dates Dr. Palmira العراقي MD Primary Care Provider Act ti Dr. Grey Nava MD Attending Provider, Referring Pooja kelley Active Grab Driver Relationship Specialty Start Date End Date [facility] [address] [phone] PCP - General Nurse Practitioner 09/11/16 Aris Meredith MD [address] [place] [address] PCP - [facility] Attributed Provider 01/31/21 Grab Driver Relationship Specialty Start Date End Date [place], [facility] [address] [phone] PCP - General Nurse Practitioner 09/11/16 Grab Driver Relationship Specialty Start Date End Date [facility] [address] [place], [place] [phone] PCP - General Family Practice 04/10/14 Grab Driver Relationship Specialty Start Date End Date [facility], [facility] [address] [phone] PCP - General Nurse Practitioner 09/11/16 Grab Driver Relationship Specialty Start Date End Date Palmira العراقي MD [address] [place] [phone] PCP - General Family Medicine 06/27/22 Grab Driver Relationship Specialty Start Date End Date Palmira العراقي MD [address] [place] [address] [phone] PCP - General Family Medicine 06/27/22 Vianney Judge MD [address] [place] [address] PCP - [facility] Attributed Provider 05/02/22 Grab Driver Relationship Specialty Start Date End Date Palmira العراقي MD [address] [place] [phone] PCP - General Family Medicine 06/27/22 Grab Driver Relationship Specialty Start Date End Date Jae Gannon APRN.PRECISION THREAD GRINDER OPERATOR [address] [place] [address] PCP - General Family Medicine 04/10/14 Grab Driver Relationship Specialty Start Date End Date Palmira العراقي MD [address] [place] [phone] PCP - General Family Medicine 06/27/22 Team Status: Active Member Role Status Dates Dr. Palmira العراقي MD Primary Care Provider Act ti Dr. Wilfrido Rodriguez MD Emergency Provider Active Dr. Mary Ellen Velez MD Admit Provider, At tending Provider, Other Provider Active Team Status: Active Member Role Status Dates Dr. Palmira العراقي MD Primary Care Provider Act ti Dr. Wilfrido Rodriguez MD Emergency Provider Active Dr. Mary Ellen Velez MD Admit Provider, Attending Provid er Active Team Status: Active Member Role Status Dates Dr. Palimra العراقي MD Primary Care Provider Act ti Dr. Wilfrido Rodriguez MD Emergency Provider Active Dr. Mary Ellen Velez MD Admit Provider, Other Provider A ctive Dr. Bert Kirby DO Attending Provider Active Team Status: Inactive Member Role Status Dates Dr. Palmira العراقي MD Primary Care Provider Act ti Dr. Wilfrido Rodriguez MD Emergency Provider Active Dr. Mary Ellen Velez MD Admit Provider, Attending Provid er Active Team Status: Inactive Member Role Status Dates Dr. Palmira العراقي MD Primary Care Provider Act ti Dr. Kirk Foley MD Emergency Provider Active Team Status: Inactive Member Role Status Dates Dr. Palmira العراقي MD Primary Care Provider Act ti Dr. Kirk Foley MD Attending Provider, Emergency Provider Active Team Status: Inactive Member Role Status Dates Dr. Palmira العراقي MD Primary Care Provider Act ti Dr. Kirk Foley MD Attending Provider, Referring Provider Active Grab Driver Relationship Specialty Start Date End Date Palmira العراقي MD [address] [phone] PCP - General Family Medicine 06/27/22 Grab Driver Relationship Specialty Start Date End Date Palmira العراقي MD [address] [place] [address] PCP - General 06/17/22 Palmira العراقي MD [address] [place] [address] PCP - [employer] PCP 12/03/22 Palmira العراقي MD [address] [place] [address] PCP - [employer] [facility] Attributed Provider 11/02/22 Mariah Can MD [address] [place] [address] Referring Physician Neurology 02/11/23 Loren Umana, tile setterCertified Health Education Specialist 03/23/23 Grab Driver Relationship Specialty Start Date End Date Palmira العراقي MD [address] [facility] [place] [phone] PCP - General 06/17/22 Palmira العراقي MD [address] [place] [phone] PCP - [employer] Attributed Provider 11/02/22 Jose J Martin DO [address] [place] [address] PCP - [employer] PCP 03/02/23 Mariah Can MD [address] [address] Referring Physician Neurology 02/11/23 Loren Umana, tile setterCertified Health Education Specialist 03/23/23 Grab Driver Relationship Specialty Start Date End Date Palmira العراقي MD [address] [place] [phone] PCP - General 06/17/22 Palmira العراقي MD [address] [facility] Office [place] [phone] PCP - [employer] Attributed Provider 11/02/22 Jose J Martin DO [address] [place] [address] PCP - [employer] PCP 03/02/23 Mariah Can MD [address] [place] [address] Referring Physician Neurology 02/11/23 Grab Driver Relationship Specialty Start Date End Date Palmira العراقي MD [address] [facility] Office [place] [phone] PCP - General 06/17/22 Palmira العراقي MD [address] [phone] PCP - [employer] Attributed Provider 11/02/22 Jose J Martin DO [facility] Yvette Ortiz [address] [address] PCP - [employer] PCP 03/02/23 Mariah Can MD [address] [place] [address] Referring Physician Neurology 02/11/23 Grab Driver Relationship Specialty Start Date End Date Palmira العراقي MD [address] [place] [phone] PCP - General Family Medicine 06/27/22 Grab Driver Relationship Specialty Start Date End Date Palmira العراقي MD [address] [place] [address] PCP - General 06/17/22 Palmira العراقي MD [address] [place] [address] PCP - [employer] Attributed Provider 11/02/22 Palmira العراقي MD [address] [facility] Office [place] [phone] PCP - [employer] PCP 07/03/23 Mariah Can MD [address] [address] Referring Physician Neurology 02/11/23 Grab Driver Relationship Specialty Start Date End Date BjnvPalmira fatima MD [address] [place] [phone] PCP - General Family Medicine 06/27/22 Grab Driver Relationship Specialty Start Date End Date Palmira العراقي MD [address] [place] [address] PCP - General 06/17/22 Palmira العراقي MD [address] [place] [address] PCP - [employer] Attributed Provider 11/02/22 Palmira العراقي MD [address] [place] [address] PCP - [employer] PCP 07/03/23 Mariah Can MD [address] [address] Referring Physician Neurology 02/11/23 Grab Driver Relationship Specialty Start Date End Date Palmira العراقي MD [address] [place] [address] PCP - General 06/17/22 Palmira العراقي MD [address] [place], [place] [address] [facility] Office [place] [phone] PCP - [employer] Attributed Provider 11/02/22 Palmira العراقي MD [facility] [address] [facility] Office [place] [phone] PCP - [employer] PCP 07/03/23 Mariah Can MD [address] [address] Referring Physician Neurology 02/11/23 Grab Driver Relationship Specialty Start Date End Date Palmira العراقي MD [address] [place], [place] [address] [facility] [place] [address] PCP - General 06/17/22 Palmira العراقي MD [address] [place], [place] [address] [place] [address] PCP - [employer] Attributed Provider 11/02/22 Palmira العراقي MD [address] [place], [place] [address] [facility] [address] [place] [phone] PCP - [employer] PCP 07/03/23 Mariah Can MD [address] [address] Referring Physician Neurology 02/11/23 Grab Driver Relationship Specialty Start Date End Date Palmira العراقي MD [address] [facility] [place] [address] PCP - General 06/17/22 Palmira العراقي MD [address] [place] [address] PCP - [employer] Attributed Provider 11/02/22 Palmira العراقي MD [address] [place] [address] PCP - [employer] PCP 07/03/23 Mariah Can MD [address] [facility] [address] [place], [place] [phone] Referring Physician Neurology 02/11/23 Grab Driver Relationship Specialty Start Date End Date Palmira العراقي MD [address] [place] [address] PCP - General 06/17/22 Palmira العراقي MD [address] [place] [phone] PCP - [employer] Attributed Provider 11/02/22 Palmira العراقي MD [address] [place] [address] PCP - [employer] PCP 07/03/23 Mariah Can MD [address] [address] Referring Physician Neurology 02/11/23 Grab Driver Relationship Specialty Start Date End Date Palmira العراقي MD [address] [facility] [place] [address] PCP - General 06/17/22 Palmira العراقي MD [address] [place] [address] PCP - [employer] [facility] Attributed Provider 11/02/22 Palmira العراقي MD [address] [place] [address] PCP - [employer] PCP 07/03/23 Mariah Can MD [address] [address] Referring Physician Neurology 02/11/23 Grab Driver Relationship Specialty Start Date End Date Palmira العراقي MD [address] [place] [address] PCP - General 06/17/22 Palmira العراقي MD [address] [place] [address] PCP - [employer] Attributed Provider 11/02/22 Palmira العراقي MD [address] [place] [address] PCP - [employer] PCP 07/03/23 Mariah Can MD [address] [facility] [address] [address] Referring Physician Neurology 02/11/23 Grab Driver Relationship Specialty Start Date End Date Palmira العراقي MD [facility] [place] [address] PCP - General 06/17/22 Palmira العراقي MD [address] [place] [address] [place] [address] PCP - [employer] Attributed Provider 11/02/22 Palmira العراقي MD [address] [place] [address] Ave [place] [phone] PCP - [employer] PCP 07/03/23 Mariah Can MD [address] [facility] [address] [address] Referring Physician Neurology 02/11/23 Team Status: Active Member Role Status Dates Dr. Palmira العراقي MD Primary Care Provider Act ti Dr. Sherman Deutsch MD Attending Provider Active Team Status: Inactive Member Role Status Dates Dr. Palmira العراقي MD Primary Care Provider Act ti Dr. Grey Nava MD Attending Provider Active Grab Driver Relationship Specialty Start Date End Date Palmira العراقي MD [address] [place] [address] [place] [address] PCP - General 06/17/22 Palmira العراقي MD [address] [facility] [place] [address] PCP - [employer] Attributed Provider 11/02/22 Palmira العراقي MD [address] [place] [address] PCP - [employer] PCP 07/03/23 Mariah Can MD [address] [address] Referring Physician Neurology 02/11/23 Grab Driver Relationship Specialty Start Date End Date Palmira العراقي MD [address] [place] [address] PCP - General 06/17/22 Palmira العراقي MD [address] [place] [address] PCP - [employer] Attributed Provider 11/02/22 Palmira العراقي MD [address] [place] [address] PCP - [employer] PCP 07/03/23 Mariah Can MD [address] [address] Referring Physician Neurology 02/11/23 Grab Driver Relationship Specialty Start Date End Date Palmira العراقي MD [address] [place] [address] PCP - General 06/17/22 Palmira العراقي MD [facility] [place] [address] PCP - [employer] Attributed Provider 11/02/22 Palmira العراقي MD [facility] [place] [address] PCP - [employer] PCP 07/03/23 Mariah Can MD [address] [address] Referring Physician Neurology 02/11/23 Grab Driver Relationship Specialty Start Date End Date Palmira العراقي MD [address] [place] [phone] PCP - General Family Medicine 06/27/22 Grab Driver Relationship Specialty Start Date End Date Palmira العراقي MD [address] [place] [address] PCP - General 06/17/22 Palmira العراقي MD [facility] [place] [address] PCP - [employer] Attributed Provider 11/02/22 Mariah Can MD [address] [address] Referring Physician Neurology 02/11/23 Yisel Prado MD [address] [place] [address] Consulting Physician Hematology and Oncology 03/11/24 Grab Driver Relationship Specialty Start Date End Date BjnvPalmira fatima MD [address] [place], [place] [phone] PCP - General Family Medicine 03/15/24 Grab Driver Relationship Specialty Start Date End Date BjnvPalmira fatima MD [address] [place] [phone] PCP - General Family Medicine 06/27/22 Grab Driver Relationship Specialty Start Date End Date BjnvPalmira fatima MD [facility] [address] [facility] Office [place] [phone] PCP - General 06/17/22 Palmira العراقي MD [address] [place] [address] PCP - [employer] Attributed Provider 11/02/22 Mariah Can MD [facility] [address] [address] Referring Physician Neurology 02/11/23 Yisel Prado MD [address] [place] [address] Consulting Physician Hematology and Oncology 03/11/24 Grab Driver Relationship Specialty Start Date End Date Palmira العراقي [place] [address] PCP - General 06/17/22 Palmira العراقي MD [address] [place] [address] PCP - [employer] Attributed Provider 11/02/22 Mariah Can MD [address] [address] Referring Physician Neurology 02/11/23 Yisel Prado MD [address] [address] Consulting Physician Hematology and Oncology 03/11/24 Grab Driver Relationship Specialty Start Date End Date Palmira العراقي MD [address] [place], [place] [phone] PCP - General 06/17/22 Palmira العراقي MD [address] [place], [place] [phone] PCP - [employer] A[employer] Attributed Provider 11/02/22 Mariah Can MD [address] [address] Referring Physician Neurology 02/11/23 Yisel Prado MD [address] -[address] [place] [address] Consulting Physician Hematology and Oncology 03/11/24 Grab Driver Relationship Specialty Start Date End Date Palmira العراقي MD [address] [facility] [place] [address] PCP - General 06/17/22 Palmira العراقي MD [address] [place] [address] PCP - [employer] ACO Attributed Provider 11/02/22 Mariah Can MD [address] [address] Referring Physician Neurology 02/11/23 Yisel Prado MD [address] -[address] [place] [address] Consulting Physician Hematology and Oncology 03/11/24 Grab Driver Relationship Specialty Start Date End Date Pamlira العراقي MD [address] [place] [phone] PCP - General Family Medicine 06/27/22 Grab Driver Relationship Specialty Start Date End Date Elaine Betts, BUSINESS ANALYTICS ANALYST-PRECISION THREAD GRINDER OPERATOR [address] -[address] [place] [address] PCP - [facility] ACO Attributed Provider 02/01/24 Palmira العراقي MD [address] [facility] [address] [place] [address] PCP - General Family Medicine 07/12/24 Mariah Can MD [address] [facility] [address] [place] [address] Referring Physician Neurology 02/11/23 Yisel Prado MD [address] [place] [address] Consulting Physician Hematology and Oncology 03/11/24 Grab Driver Relationship Specialty Start Date End Date Elaine Betts APRN-PRECISION THREAD GRINDER OPERATOR [address] [place] [address] PCP - [employer] [facility] Attributed Provider 02/01/24 Palmira العراقي MD [address] [address] PCP - General Family Medicine 07/12/24 Mariah Can MD [address] [place] [address] Referring Physician Neurology 02/11/23 Yisel Prado MD [address] [place] [address] Consulting Physician Hematology and Oncology 03/11/24 Grab Driver Relationship Specialty Start Date End Date Palmira العراقي MD [address] [place] [phone] PCP - General Family Medicine 06/27/22 Grab Driver Relationship Specialty Start Date End Date Elaine Betts APRN-PRECISION THREAD GRINDER OPERATOR [address] [place] [address] PCP - [employer] A[employer] Attributed Provider 02/01/24 Palmira العراقي MD [address] [facility] 100 [place] [address] PCP - General Family Medicine 07/12/24 Mariah Can MD [address] [place] [address] Referring Physician Neurology 02/11/23 Yisel Prado MD [address] [place] [address] Consulting Physician Hematology and Oncology 03/11/24 Grab Driver Relationship Specialty Start Date End Date Elaine Betts, BUSINESS ANALYTICS ANALYST-PRECISION THREAD GRINDER OPERATOR [address] [place] [address] PCP - [employer] [facility] Attributed Provider 02/01/24 Palmira العراقي MD [address] [place], [place] [phone] PCP - General Family Medicine 07/12/24 Mariah Can MD [address] [place] [address] Referring Physician Neurology 02/11/23 Yisel Prado MD [address] [place] [address] Consulting Physician Hematology and Oncology 03/11/24 Grab Driver Relationship Specialty Start Date End Date Palmira العراقي MD [address] [facility] [place] [phone] PCP - General 06/17/22 Palmira العراقي MD [address] [facility] [place] [phone] PCP - [facility] ACO Attributed Provider 11/02/22 Mariah Can MD [address] [place] [address] Referring Physician Neurology 02/11/23 Yisel Prado MD [address] [place] [phone] Consulting Physician Hematology and Oncology 03/11/24 Grab Driver Relationship Specialty Start Date End Date Palmira العراقي MD [facility] [address] [place] [phone] PCP - General 06/17/22 Palmira العراقي MD [facility] [place] [address] PCP - [facility] ACO Attributed Provider 11/02/22 Mariah Can MD [address] [address] Referring Physician Neurology 02/11/23 Yisel Prado MD [address] [place], [place] [phone] Consulting Physician Hematology and Oncology 03/11/24 Grab Driver Relationship Specialty Start Date End Date Palmira العراقي MD [facility] [place] [address] PCP - General 06/17/22 Elaine Betts APRN-PRECISION THREAD GRINDER OPERATOR [address] [place] [phone] PCP - [employer] [facility] Attributed Provider 02/01/24 Mariah Can MD [address] [address] Referring Physician Neurology 02/11/23 Yisel Prado MD [address] [place] [phone] Consulting Physician Hematology and Oncology 03/11/24 Grab Driver Relationship Specialty Start Date End Date Palmira لاعراقي MD [address] [place] [address] [place] [address] PCP - General 06/17/22 Elaine Betts APRN-PRECISION THREAD GRINDER OPERATOR [address] [place] [address] PCP - [facility] Attributed Provider 02/01/24 Mariah Can MD [address] [address] Referring Physician Neurology 02/11/23 Yisel Prado MD [address] [place] [phone] Consulting Physician Hematology and Oncology 03/11/24 Grab Driver Relationship Specialty Start Date End Date Elaine Betts APRN-PRECISION THREAD GRINDER OPERATOR [address] [place] [phone] PCP - [facility] ACO Attributed Provider 02/01/24 Palmira العراقي MD [address] [place], [place] [id number] PCP - General Family Medicine 07/12/24 Mariah Can MD [address] [place] [address] Referring Physician Neurology 02/11/23 Yisel Prado MD [address] [place] [address] Consulting Physician Hematology and Oncology 03/11/24 Grab Driver Relationship Specialty Start Date End Date Elaine Betts APRN-PRECISION THREAD GRINDER OPERATOR [address] [place] [address] PCP - MSSP ACO Attributed Provider 02/01/24 Palmira العراقي MD [address] [place], [place] [phone] PCP - General Family Medicine 07/12/24 Mariah Can MD [address] [address] Referring Physician Neurology 02/11/23 Yisel Prado MD [address] [place] [address] Consulting Physician Hematology and Oncology 03/11/24 Grab Driver Relationship Specialty Start Date End Date Elaine Betts APRN-PRECISION THREAD GRINDER OPERATOR [address] [place] [address] PCP - MSSP ACO Attributed Provider 02/01/24 Palmira العراقي MD [address] [address] PCP - General Family Medicine 07/12/24 Mariah Can MD [address] [address] Referring Physician Neurology 02/11/23 Yisel Prado MD [address] [place] [address] Consulting Physician Hematology and Oncology 03/11/24 Grab Driver Relationship Specialty Start Date End Date Elaine Betts APRN-PRECISION THREAD GRINDER OPERATOR [address] [place] [address] PCP - MSSP ACO Attributed Provider 02/01/24 Palmira العراقي MD [address] [place] [id number] PCP - General Family Medicine 07/12/24 Mariah Can MD [address] [address] Referring Physician Neurology 02/11/23 Yisel Prado MD [address] [place] [address] Consulting Physician Hematology and Oncology 03/11/24 Grab Driver Relationship Specialty Start Date End Date Elaine Betts APRN-PRECISION THREAD GRINDER OPERATOR [address] [place] [address] PCP - MSSP ACO Attributed Provider 02/01/24 Palmira العراقي MD [address] [address] PCP - General Family Medicine 07/12/24 Mariah Can MD [address] [place] [address] Referring Physician Neurology 02/11/23 Yisel Prado MD [address] [place] [address] Consulting Physician Hematology and Oncology 03/11/24 Grab Driver Relationship Specialty Start Date End Date Elaine Betts APRN-PRECISION THREAD GRINDER OPERATOR [address] [place] [address] PCP - MSSP ACO Attributed Provider 02/01/24 Palmira العراقي MD [address] [address] PCP - General Family Medicine 07/12/24 Mariah Can MD [address] [address] Referring Physician Neurology 02/11/23 Yisel Prado MD [address] [place] [address] Consulting Physician Hematology and Oncology 03/11/24 Grab Driver Relationship Specialty Start Date End Date Palmira العراقي MD [address] [address] PCP - General Family Medicine 07/12/24 Palmira العراقي MD [address] [address] PCP - MSSP ACO Attributed Provider 08/02/24 Mariah Can MD [address] [place] [address] Referring Physician Neurology 02/11/23 Yisel Prado MD [address] [place] [address] Consulting Physician Hematology and Oncology 03/11/24 Grab Driver Relationship Specialty Start Date End Date Palmira العراقي MD [address] [place] [id number] PCP - General Family Medicine 07/12/24 Palmira العراقي MD [address] [place] [phone] PCP - MSSP ACO Attributed Provider 08/02/24 Mariah Can MD [address] [address] Referring Physician Neurology 02/11/23 Yisel Prado MD [address] [place] [address] Consulting Physician Hematology and Oncology 03/11/24 Grab Driver Relationship Specialty Start Date End Date Palmira العراقي MD [address] [address] PCP - General Family Medicine 07/12/24 Palmira العراقي MD [address] [address] PCP - MSSP ACO Attributed Provider 08/02/24 Mariah Can MD [address] [place] [address] Referring Physician Neurology 02/11/23 Yisel Prado MD [address] [place] [address] Consulting Physician Hematology and Oncology 03/11/24 Grab Driver Relationship Specialty Start Date End Date Palmira العراقي MD [address] [address] PCP - General Family Medicine 07/12/24 Palmira العراقي MD [address] [address] PCP - MSSP ACO Attributed Provider 08/02/24 Mariah Can MD [address] [place] [address] Referring Physician Neurology 02/11/23 Yisel Prado MD [address] [place] [address] Consulting Physician Hematology and Oncology 03/11/24 Grab Driver Relationship Specialty Start Date End Date Palmira العراقي MD [address] [address] PCP - General Family Medicine 07/12/24 Palmira العراقي MD [address] [address] PCP - MSSP ACO Attributed Provider 08/02/24 Mariah Can MD [address] [address] Referring Physician Neurology 02/11/23 Yisel Prado MD [address] [place] [address] Consulting Physician Hematology and Oncology 03/11/24 Grab Driver Relationship Specialty Start Date End Date Palmira العراقي MD [address] [address] PCP - General Family Medicine 07/12/24 Palmira العراقي MD [address] [address] PCP - MSSP ACO Attributed Provider 08/02/24 Mariah Can MD [address] [address] Referring Physician Neurology 02/11/23 Yisel Prado MD [address] [place], [place] [address] [address] [place] [address] Consulting Physician Hematology and Oncology 03/11/24 Grab Driver Relationship Specialty Start Date End Date Palmira العراقي MD [address] [address] PCP - General Family Medicine 07/12/24 Palmira العراقي MD [address] [address] PCP - MSSP ACO Attributed Provider 08/02/24 Mariah Can MD [address] [address] Referring Physician Neurology 02/11/23 Yisel Prado MD [address] [place] [address] Consulting Physician Hematology and Oncology 03/11/24 Grab Driver Relationship Specialty Start Date End Date Palmira العراقي MD [address] [address] PCP - General Family Medicine 07/12/24 Palmira العراقي MD [address] [address] PCP - MSSP ACO Attributed Provider 08/02/24 Mariah Can MD [address] [address] Referring Physician Neurology 02/11/23 Yisel Prado MD [address] [place] [address] Consulting Physician Hematology and Oncology 03/11/24 Grab Driver Relationship Specialty Start Date End Date Palmira العراقي MD [address] [address] PCP - General Family Medicine 07/12/24 Palmira العراقي MD [address] [address] PCP - MSSP ACO Attributed Provider 08/02/24 Mariah Can MD [address] [address] Referring Physician Neurology 02/11/23 Yisel Prado MD [address] [place], [place] [address] [address] [place] [address] Consulting Physician Hematology and Oncology 03/11/24 Grab Driver Relationship Specialty Start Date End Date Palmira العراقي MD [address] [address] PCP - General Family Medicine 07/12/24 Palmira العراقي MD [address] [address] PCP - MSSP ACO Attributed Provider 08/02/24 Mariah Can MD [address] [address] Referring Physician Neurology 02/11/23 Yisel Prado MD [address] [place], [place] [address] [address] [place] [address] Consulting Physician Hematology and Oncology 03/11/24 Grab Driver Relationship Specialty Start Date End Date Palmira العراقي MD [address] [address] PCP - General Family Medicine 07/12/24 Palmira العراقي MD [address] [address] PCP - MSSP ACO Attributed Provider 08/02/24 Mariah Can MD [address] [address] Referring Physician Neurology 02/11/23 Yisel Prado MD [address] [place] [address] [address] [place] [address] Consulting Physician Hematology and Oncology 03/11/24 Grab Driver Relationship Specialty Start Date End Date Palmira العراقي MD [address] [place] [phone] PCP - General Family Medicine 06/27/22 Grab Driver Relationship Specialty Start Date End Date BjnvPalmira fatima MD [address] [place] [phone] PCP - General Family Medicine 06/27/22 Team Status: Inactive Member Role Status Dates Dr. Palmira العراقي MD Primary Care Provider Act ti Start: December 09, 2024 End: December 09, 2024 Dr. Grey Nava MD Attending Provider Active Start: December 09, 2024 End: December 09, 2024 Dr. Grey Nava MD Referring Provider Active Start: December 09, 2024 End: December 09, 2024 Team Status: Inactive Member Role Status Dates Dr. Palmira العراقي MD Primary Care Provider Act ti Start: December 15, 2024 End: December 15, 2024 Dr. Palmira العراقي MD Referring Provider Active Start: December 15, 2024 End: December 15, 2024 Dr. Grey Nava MD Attending Provider Active Start: December 15, 2024 End: December 15, 2024 Team Status: Active Member Role Status Dates Dr. Palmira العراقي MD Primary Care Provider Act ti Start: March 24, 2025 Dr. Grey Nava MD Attending Provider Active Start: March 24, 2025 Dr. Grey Nava MD Referring Provider Active Start: March 24, 2025 Team Status: Inactive Member Role Status Dates Dr. Palmira العراقي MD Primary Care Provider Act ti Start: March 28, 2025 End: March 28, 2025 Dr. Palmira العراقي MD Referring Provider Active Start: March 28, 2025 End: March 28, 2025 Dr. Grey Nava MD Attending Provider Active Start: March 28, 2025 End: March 28, 2025 Team Status: Inactive Member Role Status Dates Dr. Palmira العراقي MD Primary Care Provider Act ti Start: March 24, 2025 End: March 24, 2025 Dr. Grey Nava MD Attending Provider Active Start: March 24, 2025 End: March 24, 2025 Dr. Grey Nava MD Referring Provider Active Start: March 24, 2025 End: March 24, 2025 Grab Driver Relationship Specialty Start Date End Date Palmira العراقي MD [address] [place] [address] PCP - General Family Medicine 06/27/22 Source Comments (unrecognize d section and content) In the event this informatio n is protected by the Federal Confidentiality of Alcohol and Drug Abuse Patient Records regulations: The Federal rules restrict any use of the information to criminally investigate or prosecute any alcohol or drug abuse patient.[facility] the event this information is protected by the Federal Confidentiality of Alcohol and Drug Abuse Patient Records regulations: The Federal rules restrict any use of the information to criminally investigate or prosecute any alcohol or drug abuse patient.[facility] the event this information is protected by the Federal Confidentiality of Alcohol and Drug Abuse Patient Records regulations: The Federal rules restrict any use of the information to criminally investigate or prosecute any alcohol or drug abuse patient.[facility] Goals (unrecognized section and content) Goals may be documented in a n alternate sectionGoals may be documented in an alternate sectionGoals may be documented in an alternate sectionGoals may be documented in an alternate sectionGoals may be documented in an alternate sectionGoals may be documented in an alternate section Scheduled Active and Recently Administ ered Medications (unrecognized section and content) Medication Order 02/01/2025 02/02/2025 02/03/2025 allopurinol (Zyloprim) tablet 100 mg 100 mg, oral, Daily, First dose on Thu01/31/25 at 0900 0846 (Given - Provider: Debbie Levy RN) 0918 (Given - Provider: Rachel Coffey RN) 0910 (Given - Provider: Rachel Coffey RN) ascorbic acid (Vitamin C) tablet 250 mg 250 mg, oral, Daily, First dose on Thu01/31/25 at 0900 0846 (Given - Provider: Debbie Levy RN) 0918 (Given - Provider: Rachel Coffey RN) 0910 (Given - Provider: Rachel Coffey RN) aspirin EC tablet 81 mg 81 mg, oral, Daily, First dose on Thu01/31/25 at 0900, Do not crush, chew, or split. 0846 (Given - Provider: Debbie Levy RN) 0918 (Given - Provider: Rachel Coffey RN) 0910 (Given - Provider: Rachel Coffey RN) atorvastatin (Lipitor) tablet 40 mg 40 mg, oral, Daily, First dose on Thu01/31/25 at 0900 0846 (Given - Provider: Debbie Levy RN) 0918 (Given - Provider: Rachel Coffey RN) 09 (Given - Provider: Rachel Coffey RN) carvedilol (Coreg) tablet 6.25 mg 6.25 mg, oral, 2 times daily, First dose on Thu01/30/25 at 2145 0846 (Given - Provider: Debbie Levy RN)2029 (Given - Provider: Ragini Moore RN) 917 (Given - Provider: Rachel Coffey RN)2042 (Given - Provider: Makenna Delacruz RN) 09 (Given - Provider: Rachel Coffey RN)2100 (Due) cyanocobalamin (Vitamin B-12) tablet 1,000 mcg 1,000 mcg, oral, Daily, First dose on Thu01/31/25 at 0900 0846 (Given - Provider: Debbie Levy RN) 09 (Given - Provider: Rachel Coffey RN) 09 (Given - Provider: Rachel Coffey RN) docusate sodium (Colace) capsule 100 mg 100 mg, oral, 2 times daily, First dose on Thu02/01/25 at 1115 1149 (Given - Provider: Debbie Levy RN)2029 (Given - Provider: Ragini Moore RN) 918 (Given - Provider: Rachel Coffey RN)2042 (Given - Provider: Makenna Delacruz RN) 0910 (Given - Provider: Rachel Coffey RN)2100 (Due) ferrous sulfate tablet 325 mg 325 mg (1 tablet), oral, Every other day, First dose on Thu02/01/25 at 0900 0846 (Given - Provider: Debbie Levy RN) 09 (Given - Provider: Rachel Coffey RN) insulin glargine (Lantus) injection 60 Units 60 Units, subcutaneous, Every 24 hours, First dose on Thu01/30/25 at 2145, Long-acting insulin should be given regardless of PO intake. Consider dose reduction if concerned for NPO or glucose trending less than 100 mg/dL. 2117 (Given - Provider: Ragini Moore, SOSA) 2043 (Given - Provider: Makenna Delacruz RN) 2144 (Due) insulin lispro injection 0-10 Units 0-10 Units, subcutaneous, 3 times daily before meals, First dose on Thu01/31/25 at 0700, Do not hold when patient is not eating, continue order as scheduled for hyperglycemia management. Insulin Lispro Corrective Scale #2 Hypoglycemia protocol Call LIP unit(s) if Blood Glucose is between 0 - 70 mg/dL 0 unit(s) if Blood glucose is between 71-150 2 unit(s) if Blood glucose is between 151-200 4 unit(s) if Blood glucose is between 201-250 6 unit(s) if Blood glucose is between 251-300 8 unit(s) if Blood glucose is between 301-350 10 unit(s) if Blood glucose is between 351-400 If blood glucose is greater than 400 mg/dL, give max insulin per sliding scale AND then contact provider. 0725 (Not Given - Provider: Debbie Levy RN - Reason: Order parameters not met - Comment: BG 148)1149 (Given - Provider: Debbie Levy RN)1652 (Given - Provider: Debbie Leyv RN) 0735 (Not Given - Provider: Rachel Coffey RN - Reason: Order parameters not met)1143 (Given - Provider: Rachel Coffey RN)1701 (Given - Provider: Rachel Coffey RN - Comment: Not given at scheduled time) 0731 (Not Given - Provider: Rachel Coffey RN - Reason: Order parameters not met)1123 (Given - Provider: Rachel Coffey RN)1600 (Due) lactulose 20 gram/30 mL oral solution 30 g 30 g, oral, Daily, First dose on Thu02/01/25 at 1115, 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 1149 (Given - Provider: Debbie Levy RN) 0919 (Given - Provider: Rachel Coffey RN) 0909 (Given - Provider: Rachel Coffey RN) oxygen (O2) therapy inhalation, Continuous - Inhalation, First dose on Thu01/30/25 at 1610, Per home use, Device: Nasal Cannula, Rate in liters per minute: 2 LPM, Keep O2 Sat Above: 90% 0000 ([employer] - Provider: Bubba Jesus RRT)0853 (Start - Provider: Ana Littlejohn RRT)1800 ([employer] - Provider: Bubba Jesus RRT)2000 (Due) 0000 ([employer] - Provider: Bubba Jesus RRT)0711 ([employer] - Provider: Belinda Krause RRT)0800 (Due)1316 ([employer] - Provider: Belinda Krause RRT)2000 (Due) 0708 (Start - Provider: Ana Littlejohn RRT)1140 ([employer] - Provider: Ana Littlejohn RRT)1999 (Due) pantoprazole (Protonix) injection 40 mg 40 mg, intravenous, 2 times daily, First dose on Thu01/30/25 at 2145, Reconstitute each 40 mg vial with 10 mL NS to make 4 mg/mL solution. 0846 (Given - Provider: Debbie Levy RN)2029 (Given - Provider: Ragini Moore RN) 09 (Given - Provider: Rachel Coffey RN)2042 (Given - Provider: Makenna Delacruz RN) 09 (Given - Provider: Rachel Coffey RN)2099 (Due) polyethylene glycol (Glycolax, Miralax) packet 17 g 17 g, oral, Daily, First dose on Thu01/31/25 at 0900, Bowel Regimen - for prevention of constipation. 0846 (Not Given - Provider: Debbie Levy RN - Reason: Patient/family refused - Comment: pt refusal at this time. pt states he will take later if no BM today) 0919 (Given - Provider: Rachel Coffey RN) 0910 (Given - Provider: Rachel Coffey RN) primidone (Mysoline) tablet 50 mg 50 mg, oral, Nightly, First dose on Thu01/31/25 at 2099 2029 (Given - Provider: Ragini Moore RN) 2042 (Given - Provider: Makenna Delacruz RN) 2099 (Due) sucralfate (Carafate) tablet 1 g 1 g, oral, 3 times daily (morning, midday, late afternoon), First dose on Thu01/31/25 at 0800, Give on an empty stomach (1 hr before meals, at bedtime). Separate all other meds by at least 2 hours (exception: antacids may be given only 30 minutes apart). 0846 (Given - Provider: Debbie Levy RN)1149 (Given - Provider: Debbie Levy RN)1652 (Given - Provider: Debbie Levy RN) 0919 (Given - Provider: Rachel Coffey RN - Comment: Not given at scheduled time)1143 (Given - Provider: Rachel Coffey RN)1702 (Given - Provider: Rachel Coffey RN) 0910 (Given - Provider: Rachel Coffey RN - Comment: Not given at scheduled time)1123 (Given - Provider: Rachel Coffey RN)1700 (Due) PRN Medication Order 02/01/2025 02/02/2025 02/03/2025 acetaminophen (Tylenol) oral liquid 650 mg(Linked Group 1) 650 mg, oral, Every 4 hours PRN, pain mild (1-3), first line, pain moderate (4-6), first line, pain severe (7-10), first line, Starting on Thu01/30/25 at 2128, Give oral liquid per feeding tube if present or if patient prefers oral liquid over tablets. acetaminophen (Tylenol) suppository 650 mg(Linked Group 1) 650 mg, rectal, Every 4 hours PRN, pain mild (1-3), first line, pain moderate (4-6), first line, pain severe (7-10), first line, Starting on Thu01/30/25 at 2128, Give rectally if unable to administer by mouth or feeding tube., If ordered PRN for pain, nurse is permitted to administer this medication for higher pain scores based on patient preference? Yes acetaminophen (Tylenol) tablet 650 mg(Linked Group 1) 650 mg, oral, Every 4 hours PRN, pain mild (1-3), first line, pain severe (7-10), first line, pain moderate (4-6), first line, Starting on Thu01/30/25 at 2127, Administer tablet or oral liquid per patient preference., If ordered PRN for pain, nurse is permitted to administer this medication for higher pain scores based on patient preference? Yes dextrose 50 % injection 12.5 g 12.5 g, intravenous, Every 15 min PRN, For blood glucose 41 to 70 mg/dL, Starting on Thu01/30/25 at 2127, May repeat until blood glucose level reaches 100 mg/dL or greater. Push 2 - 3 mL/minute if patient has secure IV access. dextrose 50 % injection 25 g 25 g, intravenous, Every 15 min PRN, For blood glucose less than or equal to 40 mg/dL, Starting on Thu01/30/25 at 2127, May repeat until blood glucose level reaches 100 mg/dL or greater. Push 2 - 3 mL/minute if patient has secure IV access. glucagon (Glucagen) injection 1 mg 1 mg, intramuscular, Every 15 min PRN, blood glucose less than or equal to 40 mg/dL - see comments, For blood glucose less than or equal to 40 mg/dL and no IV access, Starting on Thu01/30/25 at 2127, Give until blood glucose is 100 mg/dL or greater. If patient DOES NOT HAVE secure IV access & patient is unconscious, NPO or is unable to eat or drink. glucagon (Glucagen) injection 1 mg 1 mg, intramuscular, Every 15 min PRN, blood glucose 41 to 70 mg/dL - see comments, For blood glucose 41 to 70 mg/dL and no IV access, Starting on Thu01/30/25 at 2127, Give until blood glucose is 100 mg/dL or greater. If patient DOES NOT HAVE secure IV access & patient is unconscious, NPO or is unable to eat or drink. melatonin tablet 3 mg 3 mg, oral, Nightly PRN, sleep, Starting on Thu01/30/25 at 2127 ondansetron (Zofran) injection 4 mg(Linked Group 2) 4 mg, intravenous, Every 8 hours PRN, nausea/vomiting, first line, Starting on Thu01/30/25 at 2127, 1st Line. Give IV if patient is unable to take orally. If inadequate response within 60 minutes, proceed to next-line agent for same PRN reason or contact provider if no further options ordered. When administering via IV Push, administer over 3-5 minutes. ondansetron ODT (Zofran-ODT) disintegrating tablet 4 mg(Linked Group 2) 4 mg, oral, Every 8 hours PRN, nausea/vomiting, first line, Starting on Thu01/30/25 at 8, 1st Line. Patient should allow tablet to dissolve on tongue. Do not remove from blister pack until just before administering. If inadequate response within 60 minutes, proceed to next-line agent for same PRN reason or contact provider if no further options ordered. Linked Groups Order Group 1: acetaminophen (Tylenol) tablet 650 mgJump to med 650 mg, oral, Every 4 hours PRN, pain mild (1-3), first line, pain severe (7- 10), first line, pain moderate (4-6), first line, Starting on Thu01/30/25 at 2128, Administer tablet or oral liquid per patient preference., If ordered PRN for pain, nurse is permitted to administer this medication for higher pain scores based on patient preference? Yes Or acetaminophen (Tylenol) oral liquid 650 mgJump to med 650 mg, oral, Every 4 hours PRN, pain mild (1-3), first line, pain moderate (4- 6), first line, pain severe (7-10), first line, Starting on Thu01/30/25 at 2128, Give oral liquid per feeding tube if present or if patient prefers oral liquid over tablets. Or acetaminophen (Tylenol) suppository 650 mgJump to med 650 mg, rectal, Every 4 hours PRN, pain mild (1-3), first line, pain moderate (4-6), first line, pain severe (7-10), first line, Starting on Thu01/30/25 at 2128, Give rectally if unable to administer by mouth or feeding tube., If ordered PRN for pain, nurse is permitted to administer this medication for higher pain scores based on patient preference? Yes Group 2: ondansetron ODT (Zofran-ODT) disintegrating tablet 4 mgJump to med 4 mg, oral, Every 8 hours PRN, nausea/vomiting, first line, Starting on Thu01/30/25 at 2128, 1st Line. Patient should allow tablet to dissolve on tongue. Do not remove from blister pack until just before administering. If inadequate response within 60 minutes, proceed to next-line agent for same PRN reason or contact provider if no further options ordered. Or ondansetron (Zofran) injection 4 mgJump to med 4 mg, intravenous, Every 8 hours PRN, nausea/vomiting, first line, Starting on Thu01/30/25 at 2128, 1st Line. Give IV if patient is unable to take orally. If inadequate response within 60 minutes, proceed to next-line agent for same PRN reason or contact provider if no further options ordered. When administering via IV Push, administer over 3-5 minutes. FOR RECORDS PERTAINING TO PATIENTS WHO ARE OR HAVE BEEN ENROLLED IN A CHEMICAL DEPENDENCY/SUBSTANCEABUSE PROGRAM, SOME INFORMATION MAY BE OMITTED. This clinical summary was aggregated from multiple sources. Caution should be exercised in using it in the provision of clinical care. This summary normalizes information from multiple sources, and as a consequence, information in this document may materially change the coding, format and clinical context of patient data. In addition, data may be omitted in some cases. CLINICAL DECISIONS SHOULD BE BASED ON THE PRIMARY CLINICAL RECORDS. [employer] provides no warranty or guarantee of the accuracy or completeness of information in this document.
--- NOTE | 2025-04-08 18:34 | RAD_ITS ---
PROCEDURE: WRIST MIN 3 VIEWS 04/08/2025 REASON FOR EXAM: WRIST PAIN x2 weeks, no known injury. Numbness of the fingers. TECHNIQUE: 3 view(s) of the left wrist COMPARISON: None. FINDINGS: Bones: Diffuse osseous demineralization. No acute osseous fractures. Joints: Normal alignment. Moderate degenerative changes. Positive ulnar variance. Soft tissues: Soft tissues are unremarkable. RAD/Wrist min 3 Views IMPRESSION: DEGENERATIVE OSTEOARTHROSIS. NO ACUTE FINDINGS. Reading Location: [id number]
[2025-04-08] MEDS: oxyCODONE 5 MG Tablet PO (18:54)
[2025-04-08] MEDS: Ibuprofen 200 MG Tablet 400 MG PO (18:54)
[2025-04-08] MEDS: predniSONE 20 MG Tablet PO (18:55)
--- NOTE | 2025-04-08 19:35 | CM.ED ---
Social Work Date of referral: 04/08/25 Reason for referral: [facility] Directives not on file Referred by: Social Work Identification Patient provided consent to social work visit. Patient's at bedside. Patient stated the thought they were on file and stated he will give a copy to his daughter who works at the hospital and have her bring it in. No other needs identified at this time. Maris Hurtado, NOZZLE TENDER, [employer]
[2025-04-08 20:16] VITALS: BP 119/61; PULSE 76; RESP 20; TEMP 36.4; O2SAT 97
== END 2025-04-08 20:17 | disposition home or self-care (01) ==
PROVIDERS: Emergency Provider Emergency Medicine; PCP Family Medicine; Visit Provider Emergency Medicine
DX: G56.02 Carpal tunnel syndrome, left upper limb (principal); K74.60 Unspecified cirrhosis of liver; E11.22 Type 2 diabetes mellitus with diabetic chronic kidney disease; Z79.4 Long term (current) use of insulin; E78.00 Pure hypercholesterolemia, unspecified; N18.9 Chronic kidney disease, unspecified; I25.10 Atherosclerotic heart disease of native coronary artery without angina pectoris; Z79.899 Other long term (current) drug therapy; Z95.5 Presence of coronary angioplasty implant and graft
CPT/HCPCS: 73110; 99282

== ENCOUNTER 2025-05-26 11:03 | Day surgery (SDC) | payer MEDICARE, OTHER, SELFPAY ==
--- NOTE | 2025-05-25 08:49 | PAT.ANE_ITS ---
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 When Was Last Pacemaker Check QUESTION #4 FULL TEXT: You/Your Family Experience fever (hyperthermia) with Anesthesia Last Oral Intake Last Oral intake: Last Oral Intake NPO since Meds taken in AM with sips of water? Meds patient instructed to take am of surgery PONV PONV - automatic punch press operator: PONV - automatic punch press operator Female No 05/23/25 14:20 HX of Motion Sickness No 05/23/25 14:20 HX of N/V After Surgery No 05/23/25 14:20 Non-Smoker Yes 05/23/25 14:20 Duration of Surgery greater No 05/23/25 14:20 than 60 minutes Number of Risk Factors 1 05/23/25 14:20 PONV Score Low Risk 05/23/25 14:20 Height & Weight Height & Weight: Anesthesia: Height & Weight Height 5 ft 8 in 04/08/25 17:01 Respiratory Assessment Respiratory Assessment - automatic punch press operator: Respiratory Tract Infection Hx - automatic punch press operator Hx Respiratory Tract Infection No 05/23/25 14:20 STOP Sleep Apnea STOP Sleep Apnea - automatic punch press operator: STOP Sleep Apnea - automatic punch press operator Hx Hypertension Yes: CONTROLLED ON MED 05/23/25 14:20 Hx Sleep Apnea Yes 05/23/25 14:20 CPAP Yes 05/23/25 14:20 BIPAP No 05/23/25 14:20 Do you snore loudly (louder than talking or can be heard Do you often feel tired/ fatigued/ sleepy during daytime? Has anyone observed you stop breathing during sleep? STOP Results Positive 05/23/25 14:20 QUESTION #5 FULL TEXT : Do you snore loudly (louder than talking or can be heard through closed doors)? 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 Specify any problems Hx of Preganancy in last 3 N/A 05/23/25 14:20 Months Nurse Filling Out Transfusion VCHRISTIN 05/23/25 14:20 & Questions: Date: 05/23/25 05/23/25 14:20 Time: 14:21 05/23/25 14:20 Patient unable to answer at this time (ie. confused, unrespo /Reproduction History /Reproductive History - automatic punch press operator: /Reproductive Hx- automatic punch press operator Hx Now Gestational Age (in weeks): EDC: Hx Hx Para Hx Section SAB PFSH Medical History (Updated 05/23/25 @ 14:20 by Shawna Gregory) Wears dentures Wears glasses History of steroid therapy Insulin dependent diabetes mellitus Arthritis History of renal disease High cholesterol Easy bruising Back pain History of IBS CPAP (continuous positive airway pressure) dependence Sleep apnea On home oxygen therapy Shortness of breath on exertion Leg cramps History of edema Cardiology follow-up encounter Coronary artery disease Cirrhosis Anticoagulant long-term use Chronic lymphocytic leukemia of B-cell type Presence of stent in coronary artery in patient with coronary artery disease Hypercholesterolemia Diabetes Hypertension Home Medications ?Medication ?Instructions ?Recorded ?Last Taken ?Type allopurinol 100 mg tablet 100 mg PO DAILY 04/06/23 History multivitamin 1 tab PO DAILY 04/06/23 Unkn own History nitroglycerin 0.4 mg sublingual 0.4 mg sublingual ONCE 09/29/23 Unknown History tablet primidone 50 mg tablet 50 mg PO QHS 09/29/23 History atorvastatin 40 mg tablet 40 mg PO DAILY 01/01/2410/03 History pantoprazole 40 mg tablet,delayed 40 mg PO DAILY 30 da ys #30 tabs 01/01/24 10/27/24 Rx release ferrous sulfate 325 mg (65 mg 325 mg PO Q OTHER DAY 1 month #30 07/12/24 Unknown Rx iron) tablet tabs carvedilol 6.25 mg tablet 6.25 mg PO BID 1 month #60 t abs 12/15/24 Unknown Rx oxycodone 5 mg tablet 5 mg PO Q6H PRN pain 4 days #16 04/08/25 Unknown Rx tabs prednisone 20 mg tablet 20 mg PO DAILY #4 tabs 04/08 Unknown Rx amlodipine 5 mg tablet 5 mg PO DAILY 05/23/25 Unkno wn History ascorbic acid (vitamin C) 250 mg 500 mg PO DAILY 05/23 Unknown History tablet (Vitamin C) aspirin 81 mg capsule 81 mg PO DAILY 05/23/25 Unkn own History cyanocobalamin (vitamin B-12) 1,000 mcg PO DAILY 05/23 Unknown History 1,000 mcg tablet (Vitamin B-12) furosemide 40 mg tablet 60 mg PO DAILY 05/23/25 Unkn own History gabapentin 100 mg capsule 100 mg PO BID 05/23/25 Unkno wn History insulin glargine 100 unit/mL (3 35 unit subcut QHS Sheryl ck with 05/23/25 Unknown History mL) subcutaneous pen (Rachel primary doctor Brad U-100 Insulin) insulin lispro 100 unit/mL 1 sliding scale dose subcut BID 05/23/25 Unknown History subcutaneous pen spironolactone 25 mg tablet 25 mg PO DAILY 05/23/25 Un known History sucralfate 1 gram tablet 1 g PO TID 05/23/25 Unknown History Allergy/AdvReac Type Severity Reaction Status Date / Time metformin AdvReac Diarrhea Verified 05/23/25 13:47 Surgical History History of hernia surgery History of cholecystectomy Social History household members: spouse Smoking Status: Never smoker substance use type: does not use Audit: Pertinent Findings Pertinent Findings EKG Perinent findings: NSR, some RBBB based on EKG 04/02/2025 Stress test pertinent findings: Left ventricular perfusion normal, though some reversible basal defects. No evidence of ischemia. Post-rest EF 61% based on myocardial perfusion stress test on 06/12/2020 Echo (EF%) pertinent findings: 55% based on echo 02/03/24, PAP 50mmHg Consult pertinent findings: Patient saw his carpet binder Dr. Judge recently, who referenced echo from 02/03/2024 and cleared him for the procedure. Not to stop aspirin. Recommendation Anesthesia Recommendation Anesthesia recommendation: OPTIMIZED for anesthesia (Noted to have elevated creatinine to 2.53 based on labs from 12/09/2024. He will need to follow-up with his PCP and be referred to a cordwood cutter helper if he does not have one already.)
[2025-05-26] VITALS (7 sets, daily range): BP systolic 112–123; BP diastolic 52–67; PULSE 73–79; RESP 16–18; TEMP 36.6–37.1; O2SAT 96–98; BMI 33.2
[2025-05-26] MEDS: Lactated Ringers 1,000 ML 15 ML IV (12:12)
--- NOTE | 2025-05-26 12:30 | PRE.ANES_ITS ---
ASA Classification* ASA Classification ASA Classification: 4 Assessment & Plan Anesthesia* Anesthesia Assessment Anesthesia Assessment: Discussed sedation and/or anesthesia options, risks, benefits, and alternatives with patient/parents/legal guardian/POA. Questions invited. The patient/parents/legal guardian/POA seems to understand and agrees to proceed with anesthesia plan. Reviewed the physical assessment, medical history, allergy history and patient home medications list prior to surgery/procedure/anesthetic and documented any changes. Performed airway and anesthesia risk assessments. Anesthesia Type Anesthesia Type: MAC History Source History Obtained from:: Patient and Chart Anesthesia Focused Assessment* Temperature: 98.7 F Pulse Rate: 78 Blood Pressure: 112/52 Respiratory Rate: 18 Pulse Ox: 97 Oxygen Delivery Method: Nasal Cannula Oxygen Flow Rate (L/min): 2 Airway Assessment Mouth opens: >3 cm Mallampati Score: III Teeth Condition: Dentures (Patient has full upper and lower dentures. They are out.) Neck Range of motion (ROM): Full ROM Labs Anesthesia Preop lab: CBC WBC 1.9 K/mm3 (4.4-11.0) L 12/09/24 11:56 12/09/24 RBC 2.32 M/mm3 (4.6-6.2) L 12/09/24 11:56 12/09/24 Hgb 8.3 g/dL (13.0-16.5) L 12/09/24 11:56 12/09/24 Hct 25.7 % (40-54) L 12/09/24 11:56 12/09/24 Plt Count 76 K/mm3 (150-450) L 12/09/24 11:56 12/09/24 CHEMISTRY Potassium 4.5 mmol/L (3.5-5.1) 12/09/24 11:56 12/09/24 Sodium 139 mmol/L (136-145) 12/09/24 11:56 12/09/24 Magnesium 1.6 mg/dL (1.5-2.2) 03/24/25 13:19 03/24/25 Phosphorus 3.2 mg/dL (2.7-4.5) 03/24/25 13:19 03/24/25 BUN 40 mg/dL (7-18) H 12/09/24 11:56 12/09/24 Creatinine 2.53 mg/dL (0.70-1.30) H 12/09/24 11:56 Glucose 252 mg/dL (74-106) H 12/09/24 11:56 12/09/24 POC Glucose 190 mg/dL (74-106) H 04/09/23 11:12 04/09/23 TSH 2.570 uIU/mL (0.358-3.740) 12/09/24 11:56 05/26 COAG PT 13.8 SECONDS (11.7-14.9) 03/24/25 13:19 Pre-Assessment Diagnosis/Proposed Procedure Planned Operative Procedure(s): EGD Anesthesia History 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 When Was Last Pacemaker Check QUESTION #4 FULL TEXT: You/Your Family Experience fever (hyperthermia) with Anesthesia Last Oral Intake Last Oral intake: Last Oral Intake NPO since 19:00 05/26/25 11:51 Meds taken in AM with sips of No 05/26/25 11:51 water? Meds patient instructed to take am of surgery PONV PONV - coding support specialist: PONV - coding support specialist Female No 05/23/25 14:20 HX of Motion Sickness No 05/23/25 14:20 HX of N/V After Surgery No 05/23/25 14:20 Non-Smoker Yes 05/23/25 14:20 Duration of Surgery greater No 05/23/25 14:20 than 60 minutes Number of Risk Factors 1 05/23/25 14:20 PONV Score Low Risk 05/23/25 14:20 Height & Weight Height & Weight: Anesthesia: Height & Weight Height 5 ft 8 in 05/26/25 11:51 Weight: 99 kg 05/26/25 11:51 Body Mass Index (BMI) 33.2 05/26/25 11:51 Respiratory Assessment Respiratory Assessment - coding support specialist: Respiratory Tract Infection Hx - coding support specialist Hx Respiratory Tract Infection No 05/23/25 14:20 STOP Sleep Apnea STOP Sleep Apnea - coding support specialist: STOP Sleep Apnea - coding support specialist Hx Hypertension Yes: CONTROLLED ON MED 05/23/25 14:20 Hx Sleep Apnea Yes 05/23/25 14:20 CPAP Yes 05/23/25 14:20 BIPAP No 05/23/25 14:20 Do you snore loudly (louder than talking or can be heard Do you often feel tired/ fatigued/ sleepy during daytime? Has anyone observed you stop breathing during sleep? STOP Results Positive 05/23/25 14:20 QUESTION #5 FULL TEXT : Do you snore loudly (louder than talking or can be heard through closed doors)? 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 Specify any problems Hx of Preganancy in last 3 N/A 05/23/25 14:20 Months Nurse Filling Out Transfusion VCHRISTIN 05/23/25 14:20 & Questions: Date: 05/23/25 05/23/25 14:20 Time: 14:21 05/23/25 14:20 Patient unable to answer at this time (ie. confused, unrespo /Reproduction History /Reproductive History - coding support specialist: /Reproductive Hx- coding support specialist Hx Now Gestational Age (in weeks): EDC: Hx Hx Para Hx Section SAB Active Medications Active Medications: Current Medications Generic Name Dose Route Start Last Admin Trade Name Freq PRN Reason Stop Dose Admin Lactated Ringer's 1,000 mls @ 15 mls/hr 05/26/25 12:15 05/26/25 12:12 IV 15 mls/hr .Q48H DARON Administration PFSH Medical History Wears dentures Wears glasses History of steroid therapy Insulin dependent diabetes mellitus Arthritis History of renal disease High cholesterol Easy bruising Back pain History of IBS CPAP (continuous positive airway pressure) dependence Sleep apnea On home oxygen therapy Shortness of breath on exertion Leg cramps History of edema Cardiology follow-up encounter Coronary artery disease Cirrhosis Anticoagulant long-term use Chronic lymphocytic leukemia of B-cell type Presence of stent in coronary artery in patient with coronary artery disease Hypercholesterolemia Diabetes Hypertension Home Medications ?Medication ?Instructions ?Recorded ?Last Taken ?Type allopurinol 100 mg tablet 100 mg PO DAILY 04/06/23 History multivitamin 1 tab PO DAILY 04/06/2305/03 History nitroglycerin 0.4 mg sublingual 0.4 mg sublingual ONCE 09/29/23 Unknown History tablet primidone 50 mg tablet 50 mg PO QHS 09/29/23 History atorvastatin 40 mg tablet 40 mg PO DAILY 01/01/2405/03 History pantoprazole 40 mg tablet,delayed 40 mg PO DAILY 30 da ys #30 tabs 01/01/24 05/25/25 Rx release ferrous sulfate 325 mg (65 mg 325 mg PO Q OTHER DAY 1 month #30 07/12/24 05/24/25 Rx iron) tablet tabs carvedilol 6.25 mg tablet 6.25 mg PO BID 1 month #60 t abs 12/15/24 05/25/25 Rx oxycodone 5 mg tablet 5 mg PO Q6H PRN pain 4 days #16 04/08/25 Unknown Rx tabs prednisone 20 mg tablet 20 mg PO DAILY #4 tabs 04/0805/25/25 Rx amlodipine 5 mg tablet 5 mg PO DAILY 05/23/2505/25 History ascorbic acid (vitamin C) 250 mg 500 mg PO DAILY 05/2305/25/25 History tablet (Vitamin C) aspirin 81 mg capsule 81 mg PO DAILY 05/23/2505/03 History cyanocobalamin (vitamin B-12) 1,000 mcg PO DAILY 05/2305/25/25 History 1,000 mcg tablet (Vitamin B-12) furosemide 40 mg tablet 60 mg PO DAILY 05/23/2505/03 History gabapentin 100 mg capsule 100 mg PO BID 05/23/2505/25 History insulin glargine 100 unit/mL (3 35 unit subcut QHS Sheryl ck with 05/23/25 05/25/25 History mL) subcutaneous pen (Rachel primary doctor Brad U-100 Insulin) insulin lispro 100 unit/mL 1 sliding scale dose subcut BID 05/23/25 05/25/25 History subcutaneous pen spironolactone 25 mg tablet 25 mg PO DAILY 05/23/25 History sucralfate 1 gram tablet 1 g PO TID 05/23/25 05/25/25 History Allergy/AdvReac Type Severity Reaction Status Date / Time metformin AdvReac Diarrhea Verified 05/26/25 11:47 Surgical History History of hernia surgery History of cholecystectomy Social History household members: spouse Smoking Status: Never smoker substance use type: does not use Review of Systems (Anesthesia) ROS Narrative System reviewed and no additional complaints, except as documented.
--- NOTE | 2025-05-26 12:32 | HP.PCM_ITS ---
HPI - General General Date of Admission: 05/26/25 Date of Service: 05/26/25 Chief Complaint: Anemia HPI Narrative JEWEL ELKINS, is a 89 M who presents with the Chief Complaint: Cirrhosis Presented to ER with black tarry stools. PMH includes coronary artery disease with stent placement 12 years ago, chronic bcell CLL, Stage 2 CKD, DMII, gout, hypertension, peptic ulcer disease on Pepcid and sucralfate. 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 Rx Sucralfate, Pantoprazole, Lactulose. Patient has bilateral leg swelling and weight gain, increasing abdominal girth in the last 2 to 3 months. Patient is states his body weight is 220 pounds in about 2 to 3 months ago now 232. Patient was last admitted in April 2023 for upper GI bleed and at that time his weight was 228 pounds. 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 Patient follows [facility] in [place] for anemia and gets erythropoietin. Patient also follows terra cotta setter someone who he does not remember. History of 4 cardiac stents about 13 years ago US abd/ elastography 10.16.23- Fatty infiltration, liver measures 19.9 cm 12.6 kPa stiffness 1.29.24 MELDna 17 OV 3.1.24 Pt feeling generally well since last visit. Is not having any abdominal pain or distention. Swelling is much better. BM are normal but does have occasional diarrhea. 06..24 MELDna 17 OV 6.11.24- Pt stable since last visit. Reports intermittent LLQ pain that is relieved by a BM. Has BM usually once a day. Still has some swelling in lower legs. Left worse than the right. No dizziness or weakness. SOB on exertion. Is on supplemental oxygen at home. No other concerns. 9.3.24 MELDna 17 OV 9.10.24- Patient well since last visit. Is not having anymore abdominal pain. Still has some swelling in left lower leg but is improving over all. Denies dizziness and confusion. BM are normal 1-2 times a day. No other concerns. US abd/ elastography 24- Liver measures 16.4cm, Stiffness 13.5 kPa 2.7.25 MELDna 16 OV 5.27.25- Pt reports he has been dealing with low Hgb. Underwent blood transfusion last week at [facility] in [place]. Hgb on 03/28 was 7.9. Denies abdominal pain, dizziness. SOB on exertion. Denies dark or bloody stools. [facility] Medical History Wears dentures Wears glasses History of steroid therapy Insulin dependent diabetes mellitus Arthritis History of renal disease High cholesterol Easy bruising Back pain History of IBS CPAP (continuous positive airway pressure) dependence Sleep apnea On home oxygen therapy Shortness of breath on exertion Leg cramps History of edema Cardiology follow-up encounter Coronary artery disease Cirrhosis Anticoagulant long-term use Chronic lymphocytic leukemia of B-cell type Presence of stent in coronary artery in patient with coronary artery disease Hypercholesterolemia Diabetes Hypertension Home Medications ?Medication ?Instructions ?Recorded ?Last Taken ?Type allopurinol 100 mg tablet 100 mg PO DAILY 04/06/23 History multivitamin 1 tab PO DAILY 04/06/2305/03 History nitroglycerin 0.4 mg sublingual 0.4 mg sublingual ONCE 09/29/23 Unknown History tablet primidone 50 mg tablet 50 mg PO QHS 09/29/23 History atorvastatin 40 mg tablet 40 mg PO DAILY 01/01/2405/03 History pantoprazole 40 mg tablet,delayed 40 mg PO DAILY 30 da ys #30 tabs 01/01/24 05/25/25 Rx release ferrous sulfate 325 mg (65 mg 325 mg PO Q OTHER DAY 1 month #30 07/12/24 05/24/25 Rx iron) tablet tabs carvedilol 6.25 mg tablet 6.25 mg PO BID 1 month #60 t abs 12/15/24 05/25/25 Rx oxycodone 5 mg tablet 5 mg PO Q6H PRN pain 4 days #16 04/08/25 Unknown Rx tabs prednisone 20 mg tablet 20 mg PO DAILY #4 tabs 04/0805/25/25 Rx amlodipine 5 mg tablet 5 mg PO DAILY 05/23/2505/25 History ascorbic acid (vitamin C) 250 mg 500 mg PO DAILY 05/2305/25/25 History tablet (Vitamin C) aspirin 81 mg capsule 81 mg PO DAILY 05/23/2505/03 History cyanocobalamin (vitamin B-12) 1,000 mcg PO DAILY 05/2305/25/25 History 1,000 mcg tablet (Vitamin B-12) furosemide 40 mg tablet 60 mg PO DAILY 05/23/2505/03 History gabapentin 100 mg capsule 100 mg PO BID 05/23/2505/25 History insulin glargine 100 unit/mL (3 35 unit subcut QHS Sheryl ck with 05/23/25 05/25/25 History mL) subcutaneous pen (Rachel primary doctor Brad U-100 Insulin) insulin lispro 100 unit/mL 1 sliding scale dose subcut BID 05/23/25 05/25/25 History subcutaneous pen spironolactone 25 mg tablet 25 mg PO DAILY 05/23/25 History sucralfate 1 gram tablet 1 g PO TID 05/23/25 05/25/25 History Allergy/AdvReac Type Severity Reaction Status Date / Time metformin AdvReac Diarrhea Verified 05/26/25 11:47 Surgical History History of hernia surgery History of cholecystectomy Social History household members: spouse Smoking Status: Never smoker substance use type: does not use ROS Constitutional Constitutional: Denies fatigue, fever(s), poor appetite, weight gain or weight loss Gastrointestinal Gastrointestinal: Denies belching, bloating, change in bowel habits, change in stool character, chewing difficulty, coffee ground emesis, constipation, cramping, diarrhea, dyspepsia, dysphagia, early satiety, excessive flatus, fecal incontinence, heartburn, hematemesis, hematochezia, hemorrhoids, loose stools, melena, nausea, odynophagia, rectal bleeding, tenesmus, vomiting or weight changes Vital Signs Vital Signs Vital Signs: 05/26/25 11:51 05/26/25 11:51 Temperature 98.7 F Temperature Source Temporal Pulse Rate 78 Respiratory Rate 18 Respiratory Pattern Normal Blood Pressure 112/52 L Blood Pressure Mean 72 Blood Pressure Source Monitor Blood Pressure Position Supine Blood Pressure Location Left Arm Pulse Ox 97 Oxygen Delivery Method Room Air Weight Weight: 218 lb 4.122 oz Body Mass Index (BMI) 33.2 Physical Exam Const alert, oriented x3, no apparent distress and healthy appearing General Appearance: cooperative GI normal to inspection, nondistended, normoactive bowel sounds, soft to palpation, non-tender and non-distended Percussion: normal to percussion Rectal Exam: deferred Assessment & Plan Assessment/Plan (1) Anemia: (2) Cirrhosis: QUALIFIERS: Hepatic cirrhosis type: unspecified hepatic cirrhosis Ascites presence: with ascites Qualified Code(s): K74.60 - Unspecified cirrhosis of liver; R18.8 - Other ascites (3) Gastric ulcer: PLAN: Assessment and Plan Assessment and Plan (1) Cirrhosis: Status: Chronic Qualifiers: Hepatic cirrhosis type: unspecified hepatic cirrhosis Ascites presence: with ascites Qualified Code(s): K74.60 - Unspecified cirrhosis of liver; R18.8 - Other ascites Plan: The patient has cirrhosis most likely due to SCHNEIDER decompensated with ascites and leg swelling, thrombocytopenia. Patient also has severe macrocytic anemia 8.0 and follows immigration specialist in [place],Dr Yisel Prado and gets injection for every erythropoietin every 2 weeks. He also follows supervisor parachute [employer] Dr. Morrison recently seen. Liver ultrasound from July 2024 reported median liver stiffness 13.5 with severe thrombocytopenia about 76K with chance of clinically significant portal hypertension on carvedilol 6.25 mg twice daily. Last liver ultrasound in October 24 shows liver stiffness 12.6 kPa compatible F3 F4, Metavir score consistent with moderate to severe liver fibrosis. MELD sodium score 16 as from December 2024 lab work. Patient leg swelling is controlled and wears stockings. Has mild to moderate ascites on exam Currently patient takes furosemide probably 60 mg daily and spironolactone 50 mg daily. Repeat labs ordered in 1 month. Patient has CKD stage IV follow-up with the supervisor parachute manufacturing Dr. Arana in 1 month. . ECHO 02/2024 showed EF 55% WITH Stage 1 diastolic dysfunction. 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 Labs ordered in 3 months and follow-up in 3-4. Liver ultrasound elastography ordered (2) Anemia in chronic illness: Status: Chronic Plan: Labs reviewed. H&H maintained. Mild pancytopenia (3) Gastric ulcer: Status: Chronic Plan: Patient had EGD during last admission in April 2023. Last EGD in April 2023 shows Impression: - No gross lesions in esophagus. - Red blood in the gastric body. Fluid aspiration performed. - Three bleeding angiodysplastic lesions in the stomach. Treated with hot biopsy forceps. - Oozing gastric ulcer with pigmented material. Injected. - No gross lesions in the duodenal bulb. No acute issues afterwards. Continue Protonix 40 mg twice daily. Patient has been on PPI since April 2023 therefore hold it Needs repeat EGD.
--- NOTE | 2025-05-26 12:45 | EGD_PTH ---
PATIENT: JEWEL ELKINS JUNIOR LOC: EN U#:[id number] AGE/SX: 89/M ROOM: RE05/26/[address]: Dr. Bert Kirby DO : 1935 BED: DIS: 05/26/2025 SPEC #: [id number] RECD: 05/26/25 13:50 STATUS: DAVID REMane #: [id number] SAGRARIO: 05/26/25 12:[address]: Bert Kirby DEPT: SURGICAL PATHOLOGY RECD BY: Lul Leos ENTERED: 05/26/25 15:19 SP TYPE: EGD BIOPSY VINNY DR: Dr. Palmira Cazares MD Tissues: A - Duodenum, NOS B - Gastric mucous membrane Procedures: Immunohistochemical Stains Surgery Specimen Level IV HEADER OPERATION: EGD with biopsy PRE-OP DIAGNOSIS: Gastric ulcer, anemia TISSUE SUBMITTED: A- Duodenum biopsy, B- Gastric body biopsy MICROSCOPIC DIAGNOSIS A. Duodenum, biopsy: - Normal villous architecture with Shania gland hyperplasia and extensive gastric foveolar metaplasia. - Focal mild increase of intraepithelial lymphocytes in the foveolar metaplastic epithelium. B. Gastric body, biopsy: - Oxyntic gastric mucosa with features of reactive gastropathy. - IHC negative for H.pylori organisms. MICROSCOPIC DESCRIPTION Slides are reviewed. All matched controls reacted appropriately. These tests were developed and their performance characteristics determined by [facility]. They may not have been cleared or approved by the U.S. Food and Drug Administration. The FDA has determined that such clearance or approval is not necessary. The above immunohistochemical/dualISH markers are viewed by the Pathologist. GROSS DESCRIPTION A. Received in fixative is one container labeled with the patient's name and designated Duodenum biopsy. The specimen consists of two irregular fragments of light cartwright soft tissue, each measuring 0.3 cm. The specimen is totally submitted in one cassette. B. Received in fixative is one container labeled with the patient's name and designated Gastric body biopsy. The specimen consists of two irregular fragments of light cartwright soft tissue, each measuring 0.8 cm. The specimen is totally submitted in one cassette. [place] 05/26/2025 CPT:47822g7,37009
--- NOTE | 2025-05-26 13:11 | PCM.POST.ANE ---
Anesthesia: Postop Eval I Current Vital Signs Temperature: 97.9 F Pulse Rate: 79 Blood Pressure: 112/58 Respiratory Rate: 16 Pulse Ox: 98 Oxygen Delivery Method: Nasal Cannula Oxygen Flow Rate (L/min): 3 Assessment Airway patent: Yes Spontaneous unlabored respirations: Yes Mental status: Awake and Calm nausea: No Vomiting: No Anesthesia Complication: No Fluid Hydration Crystalloid volume administer (ml): 300 Total IV fluid infused: 300 Progress Note Anesthesia document: Postop Eval 1 completed: Yes
--- NOTE | 2025-05-26 13:13 | OP.PROVAT_ITS ---
05/26/2025 Palmira Cazares Re : Upper GI endoscopy procedure for Jason Chaves Dear Sage This procedure was performed on Monday, May 26, 2025. My impressions and recommendations are as follows: Impressions : - No gross lesions in the entire esophagus. - Portal hypertensive gastropathy. Biopsied. - Chronic duodenitis. Biopsied. Recommendations : - Discharge patient to home. - Resume previous diet. - Continue present medications. - Await pathology results. My findings are described in the full procedure note, which is enclosed. If I can be of further assistance, please feel free to contact me at . Sincerely, Bert Kirby, 05/26/2025 1:12:33 PM This report has been signed electronically.
--- NOTE | 2025-05-26 13:13 | OP.EGD_ITS ---
Patient Name: Jason Chaves Procedure Date: 05/26/2025 12:37 PM Date of : 1935 Age: 89 Procedure: Upper GI endoscopy Indications: Iron deficiency anemia due to suspected upper gastrointestinal bleeding, Cirrhosis with suspected esophageal varices Providers: Bert Kirby DO Referring MD: Palmira Cazares Medicines: Monitored Anesthesia Care Patient Profile: This is an 89 year old male. Refer to note in patient chart for documentation of history and physical. Patient has symptoms. Complications: No immediate complications. Procedure: Pre-Anesthesia Assessment: - Prior to the procedure, a History and Physical was performed, and patient medications and allergies were reviewed. The patient is competent. The risks and benefits of the procedure and the sedation options and risks were discussed with the patient. All questions were answered and informed consent was obtained. Patient identification and proposed procedure were verified by the physician in the pre-procedure area. Mental Status Examination: alert and oriented. Airway Examination: normal oropharyngeal airway and neck mobility. Respiratory Examination: clear to auscultation. CV Examination: normal. Prophylactic Antibiotics: The patient does not require prophylactic antibiotics. Prior Anticoagulants: The patient has taken no anticoagulant or antiplatelet agents except for NSAID medication. ASA Grade Assessment: II - A patient with mild systemic disease. After reviewing the risks and benefits, the patient was deemed in satisfactory condition to undergo the procedure. The anesthesia plan was to use monitored anesthesia care (MAC). Immediately prior to administration of medications, the patient was re-assessed for adequacy to receive sedatives. The heart rate, respiratory rate, oxygen saturations, blood pressure, adequacy of pulmonary ventilation, and response to care were monitored throughout the procedure. The physical status of the patient was re-assessed after the procedure. After obtaining informed consent, the endoscope was passed under direct vision. Throughout the procedure, the patient's blood pressure, pulse, and oxygen saturations were monitored continuously. The was introduced through the mouth, and advanced to the jejunum. Small bowel enteroscopy was deemed necessary. The upper GI endoscopy was accomplished without difficulty. The patient tolerated the procedure well. Scope In: 12:54:00 PM Scope Out: 1:00:27 PM Total Procedure Duration Time 0 hours 6 minutes 27 seconds Findings: No gross lesions were noted in the entire esophagus. Moderate portal hypertensive gastropathy was found in the entire examined stomach. Biopsies were taken with a cold forceps for histology. Biopsies were taken with a cold forceps for Helicobacter pylori testing. Verification of patient identification for the specimen was done. Estimated blood loss was minimal. Patchy moderate inflammation was found in the duodenal bulb. Biopsies were taken with a cold forceps for histology. Verification of patient identification for the specimen was done. Estimated blood loss was minimal. Impression: - No gross lesions in the entire esophagus. - Portal hypertensive gastropathy. Biopsied. - Chronic duodenitis. Biopsied. Recommendation: - Discharge patient to home. - Resume previous diet. - Continue present medications. - Await pathology results. Procedure Code(s): --- Professional --- 96064, Small intestinal endoscopy, enteroscopy beyond second portion of duodenum, not including ileum; with biopsy, single or multiple CPT copyright 2021 [employer]. All rights reserved. The codes documented in this report are preliminary and upon privacy manager review may be revised to meet current compliance requirements. Bert Kirby DO 05/26/2025 1:12:33 PM This report has been signed electronically. Number of Addenda: 0 Note Initiated On: 05/26/2025 12:37 PM
== END 2025-05-26 13:46 | disposition home or self-care (01) ==
LOC: EN 11:04 → AC 11:06
PROVIDERS: PCP Family Medicine; Referring Provider Family Medicine; Visit Provider Internal Medicine Gastroenterology
PROC: 0DJ08ZZ Inspection of Upper Intestinal Tract, Via Natural or Artificial Opening Endoscopic (ICD-10-PCS; CPT 43235; principal; 2025-05-26 12:40)
DX: R89.7 Abnormal histological findings in specimens from other organs, systems and tissues (principal); K76.6 Portal hypertension; N18.4 Chronic kidney disease, stage 4 (severe); K74.60 Unspecified cirrhosis of liver; Z79.4 Long term (current) use of insulin; E11.22 Type 2 diabetes mellitus with diabetic chronic kidney disease; K29.80 Duodenitis without bleeding; R18.8 Other ascites; I25.10 Atherosclerotic heart disease of native coronary artery without angina pectoris; Z95.5 Presence of coronary angioplasty implant and graft; E78.00 Pure hypercholesterolemia, unspecified; I12.9 Hypertensive chronic kidney disease with stage 1 through stage 4 chronic kidney disease, or unspecified chronic kidney disease; Z79.899 Other long term (current) drug therapy; Z79.82 Long term (current) use of aspirin; D69.6 Thrombocytopenia, unspecified
CPT/HCPCS: 44361; 82962; 88305; 88342; J2405

== ENCOUNTER → 2025-06-28 | Outpatient (CLI) | payer MEDICARE, OTHER, SELFPAY ==
--- NOTE | 2025-06-28 08:57 | US_ITS ---
PROCEDURE: ABD LIMITED W/ ELASTOGRAPHY REASON FOR EXAM: CIRRHOSIS, COMPARISON: Prior study dated July 15, 2024. TECHNIQUE: Right upper quadrant abdominal ultrasound. Dulce Maria Elast[facility] shear wave elastography for non-invasive assessment of liver tissue stiffness. Dulce Maria EPIQ Elite. FINDINGS: LIVER: Size: Unremarkable Length: 14.6 cm Echotexture: Diffusely echogenic suggesting fatty infiltration Contour: Normal Lesions: None identified Elastography: EQI Med: 13.6 kPa EQI Med Benny: 2.11 m/s IQR/Med: 28 %* GALLBLADDER: Surgically absent. COMMON BILE DUCT: Slightly dilated measuring 7.1 mm. . PANCREAS: Normal The kidney measures 12.7 cm 5.4 cm 7.1 cm. Renal cortex measures 1.5 cm. There are multiple renal cysts. The larger is in the inferior pole and measures 8.5 cm x 8 cm 6.1 cm. A septation is seen within it. No right upper quadrant ascites. There is evidence of splenomegaly. The spleen measures 13.2 cm 4.9 cm 4.8 cm. Echogenic foci seen within it in keeping with calcified granulomas. US/ABD Limited w/ Elastography IMPRESSION: SEVERE HEPATIC FIBROSIS / CIRRHOSIS Hepatomegaly. Right renal cysts. Splenomegaly. Reference Values: SRU <1.37 m/s (5.7kPa): No to mild fibrosis 1.37 m/s - 2.2 m/s: Moderate to severe fibrosis >2.2 m/s (15kPa): Significant fibrosis / cirrhosis METAVIR Score F2 or higher: 1.34 m/s (5.7kPa) F3 or higher: 1.55 m/s (7.3kPa) F4: 1.80 m/s (10kPa) * If the IQR/Med is >30%, the variance in the measurements is a large and the a ccuracy of the measurement may be in question. Reading Location: [id number]
[2025-06-28 09:19] LABS: Hematocrit 25.4 % (40-54); Hemoglobin 8.4 g/dL (13.0-16.5); Immature Granulocytes Count 0.010 X10^3/uL (0.0-0.0); Mean Corp Hgb Conc 33.1 g/dL (32-36); Mean Corpuscular Volume 101.6 fL (80-94); Mean Platelet Vol. 10.7 fl (6.2-12.0); NRBC Flagged by Analyzer 0 % (0-5); POSITIVE COUNT YES; POSITIVE DIFFERENTIAL YES; POSITIVE MORPHOLOGY YES; Platelet Count 61 K/mm3 (150-450); RBC Distribution Width CV 22.7 % (11.6-14.6); RBC Distribution Width SD 82.3 fl (35.1-43.9); Red Blood Count 2.50 M/mm3 (4.6-6.2)
[2025-06-28 09:27] LABS: Differential Indicated SCAN CRITERIA MET; Prothrombin Time (Protime)PT. 13.7 SECONDS (11.7-14.9); White Blood Count 1.2 K/mm3 (4.4-11.0)
[2025-06-28 09:42] LABS: Ammonia 15.1 umol/L (16-60)
[2025-06-28 09:50] LABS: Anisocytosis 2+
[2025-06-28 10:29] LABS: AST(SGOT) 29 U/L (<=37); Alanine Aminotransfer ALT/SGPT 24 U/L (<=46); Albumin, Serum 4.1 g/dL (3.4-4.8); Alkaline Phosphatase 109 U/L (40-129); Anion Gap 14 (5-15); BUN 51 mg/dL (4-19); BUN/Creat Ratio 19.9 RATIO (10-20); Bilirubin, Direct 0.45 mg/dL (0.00-0.30); Calcium,Total 9.4 mg/dL (7.6-11.0); Carbon Dioxide 23.4 mmol/L (21.0-32.0); Chloride 105 mmol/L (98-108); Cholesterol 95 mg/dL (<=200); Globulin 2.8 g/dL (2.2-4.2); Glucose 152 mg/dL (70-99); Low Density Lipoprotein Calc. 35 mg/dL; Potassium 4.5 mmol/L (3.3-5.1); Triglycerides 145 mg/dL; Very Low Density Lipoprotein 29 mg/dL (5-40); cholesterol:hdl ratio screen 3.05
== END | disposition home or self-care (01) ==
PROVIDERS: PCP Family Medicine; Referring Provider Internal Medicine; Visit Provider Internal Medicine
DX: K74.60 Unspecified cirrhosis of liver (principal); N18.4 Chronic kidney disease, stage 4 (severe); E11.22 Type 2 diabetes mellitus with diabetic chronic kidney disease; R18.8 Other ascites; K25.9 Gastric ulcer, unspecified as acute or chronic, without hemorrhage or perforation; D63.8 Anemia in other chronic diseases classified elsewhere
CPT/HCPCS: 36415; 76705; 76981; 80053; 80061; 82105; 82140; 82248; 83036; 85025; 85610